=== PATIENT | female | born 1965 | race Caucasian/White ===

== ENCOUNTER 2020-02-24 14:17 | Emergency (ER) | payer OTHER, SELFPAY ==
--- NOTE | ~2020-02-24 | CT_ITS ---
EXAMINATION: CT abdomen pelvis wo con DATE: 02/24/2020 16:46 INDICATION: Right flank pain TECHNIQUE: Computed tomography (CT) of the abdomen and pelvis was performed without intravenous contr ast. The dose-length product (DLP) was 1001.24 mGy-cm. Automated exposure control and iterative recon struction technique were employed. COMPARISON: None FINDINGS: The lung bases are clear. The heart size is normal. There is a 2.9 cm cyst of the right hep atic lobe. The spleen, pancreas, gallbladder, and adrenal glands are normal. The kidneys are unremark able. No stones are identified in the kidneys, ureters, or bladder. There is no hydronephrosis or hyd roureter. No pathologically enlarged abdominal or pelvic lymph nodes are identified. There is no free intraperitoneal gas or evidence of bowel obstruction. A moderate volume of colonic stool is present. There is mild lumbar spondylosis. IMPRESSION: 1. No CT correlate for the patient's symptoms. Reviewed, dictated and finalized at location A.
[2020-02-24 14:32] VITALS: BP 129/80; PULSE 75; RESP 18; TEMP 36.8; O2SAT 99
[2020-02-24 14:55] LABS: Basophils Percent Auto 0.5 % (0.2-1.2); Eosinophils Absolute Auto 0.3 K/mm3 (0-0.3); Eosinophils Percent Auto 4.4 % (0-4.4); Hematocrit 40.3 % (37.0-47.0); Hemoglobin 12.9 g/dL (12.0-15.0); Immature Granulocyte Absolute 0.01 K/mm3 (0.00-0.031); Immature Granulocyte Percent A 0.2 % (0-0.5); Lymphocytes Absolute Auto 1.42 K/mm3 (0.9-3.2); Mean Corpuscular Hemoglobin 29.9 pg (26-34); Mean Corpuscular Volume 93.5 fl (80-100); Mean Platelet Volume 10.2 fl (7.4-10.4); Monocytes Absolute Auto 0.4 K/mm3 (0.1-0.6); Monocytes Percent Auto 6.4 % (2.6-8.5); Neutrophils Absolute Auto 3.8 K/mm3 (1.3-6.7); Neutrophils Percent Auto 64.5 % (45.5-73.1); Platelet Count Result 307 k/mm3 (150-375); Red Blood Count 4.31 M/mm3 (4.2-5.4); Red Cell Distribution Width 13.5 % (11.5-14.5); White Blood Count 5.9 K/mm3 (4.5-10.0)
[2020-02-24 15:07] LABS: Anion Gap 13.2 mmol/L (7-16); Blood Urea Nitrogen 14 mg/dL (7-17); Calcium 9.3 mg/dL (8.4-10.2); Carbon Dioxide 28 mmol/L (22-30); Chloride 101 mmol/L (98-107); Estimated CRCL calculation 81 ml/min; Estimated Glomerular Filt Rate > 60; Glucose 111 mg/dL (65-105); Potassium 4.2 mmol/L (3.4-5.0); Sodium 138 mmol/L (137-145)
[2020-02-24 15:42] LABS: Add Urine Microscopic? NO; Appearance Urine Clear (Clear); Bilirubin Urine Negative (Negative); Blood Urine Negative (Negative); Color Urine Straw (Yellow); Glucose Urine UA Negative (Negative); Ketones Urine Negative (Negative); Leukocyte Esterase Ur Negative LEU/UL (Negative); Nitrate Urine Negative (Negative); Protein Urine Negative (Negative); Specific Grav Ur 1.012 (1.001-1.035); Urobilinogen Urine Negative mg/dL (<2.0)
[2020-02-24] MEDS: ACETAMINOPHEN 500 MG TABLET 1000 MG PO (16:38)
--- NOTE | 2020-02-24 17:15 | ED.ABDPAIN ---
HPI - Abdominal Pain General Chief Complaint: Urogenital-Female <Kai Russell PA-C - Last Filed: 02/24/20 17:20> Stated Complaint: Possible kidney stone <Kai Russell PA-C - Last Filed: 02/24/20 17:20> Time Seen by Provider: 02/24/20 14:56 <Kai Russell PA-C - Last Filed: 02/24/20 17:20> Source: patient <HARJIT Lott Last Filed: 02/24/20 17:20> Mode of arrival: ambulatory <Kai Russell PA-C - Last Filed: 02/24/20 17:20> Limitations: no limitations <Kai Russell PA-C - Last Filed: 02/24/20 17:20> History of Present Illness HPI narrative: Patient is a 54-year-old female who presents to emergency department for evaluation of right flank pain that began today as a sharp pain in the right upper back that does not radiate patient denies fever chills nausea vomiting diarrhea patient on arrival to emergency department is in the room in no distress patient has not taken anything for her symptoms patient is currently being treated by outside care for diverticulitis which was diagnosed a week ago has been compliant with her medications patient presents with family <Kai Russell PA-C - Last Filed: 02/24/20 17:20> Related Data Home Medications: Home Medications Medication Instructions Recorded Confirmed levothyroxine 06/24/19 ciprofloxacin HCl 02/24/20 dicyclomine mg 02/24/20 escitalopram oxalate mg 02/24/20 metronidazole 02/24/20 ondansetron HCl 02/24/20 <Kai Russell PA-C - Last Filed: 02/24/20 17:20> Allergies/Adverse Reactions: Allergies Allergy/AdvReac Type Severity Reaction Status Date / Time No Known Allergies Allergy Verified 02/24/20 14:53 <Kai Russell PA-C - Last Filed: 02/24/20 17:20> Review of Systems Review of Systems: All systems reviewed & are unremarkable except as noted in HPI and below <Kia Russell PA-C - Last Filed: 02/24/20 17:20> PMFSH Past Medical History Medical History: Medical History Obese <Kai Russell PA-C - Last Filed: 02/24/20 17:20> Surgical History Surgical History: Surgical History H/O thyroidectomy <Kai Russell PA-C - Last Filed: 02/24/20 17:20> Social History Social History: Social History Smoking status: Never smoker Gender identity (if verbalized by the patient): Female <Kai Russell PA-C - Last Filed: 02/24/20 17:20> Exam Narrative: Exam Narrative: GENERAL: Well-appearing, well-nourished, and in no acute distress. HEAD: Normocephalic, atraumatic. EYES: PERRLA and EOMI. ENT: Nares clear, no rhinorrhea or epistaxis. Mucous membranes moist. CHEST: Clear to auscultation. No respiratory distress. No wheezes rales or rhonchi HEART: Regular rate and rhythm. No murmur heard. Normal peripheral pulses. ABDOMEN: Soft, nontender, nondistended EXTREMITIES: Normal range of motion. No edema. Tenderness of the right CVA region no deformity noted SKIN: Warm, dry, no rash. NEURO: No focal deficits. Alert and oriented x3. PSYCH: Normal mood and affect. <Kai Russell PA-C - Last Filed: 02/24/20 17:20> Course Course Emergency Course: Patient in the room in no distress aware of case findings treatment plan and diagnosis felt appropriate for continued outpatient reevaluation provided with reasons to return no high risk changes in the blood work or imaging <Kai Russell PA-C - Last Filed: 02/24/20 17:20> Vital Signs Vital signs: Vital Signs Temperature 98.3 F 02/24/20 14:32 Pulse Rate 75 02/24/20 14:32 Respiratory Rate 18 02/24/20 14:32 Blood Pressure 129/80 02/24/20 14:32 Pulse Oximetry 99 02/24/20 14:32 Temperature 98.2 F 02/24/20 17:42 Pulse Rate 74 02/24/20 17:42 Respiratory Rate 16 02/24/20 17:42
[2020-02-24 17:42] VITALS: BP 129/83; PULSE 74; RESP 16; TEMP 36.8; O2SAT 98
== END 2020-02-24 17:44 | disposition home or self-care (01) ==
PROVIDERS: Emergency Provider General Practice; PCP Physician Assistant
DX: R10.9 Unspecified abdominal pain (principal); E66.9 Obesity, unspecified; Z68.42 Body mass index [BMI] 45.0-49.9, adult; E89.0 Postprocedural hypothyroidism
CPT/HCPCS: 36415; 74176; 80048; 81003; 85025; 99284; A9270

== ENCOUNTER 2020-09-07 09:17 | Emergency (ER) | payer OTHER, SELFPAY ==
[2020-09-07 09:25] VITALS: BP 150/90; PULSE 88; RESP 20; TEMP 36.7; O2SAT 98
--- NOTE | 2020-09-07 09:42 | ED.GENADULT ---
HPI - General Adult General Chief complaint: Skin/Abscess/Foreign Body Stated complaint: ingrown hair Source: patient Mode of arrival: ambulatory Limitations: no limitations History of Present Illness HPI narrative: Patient presents for evaluation treatment of painful, swollen, red area to the pubic region for the last 2 days. She denies any fever, chills, nausea, vomiting. She states that her thought that she had an ingrown hair and extracted it. She states there was some sanguinous drainage from the affected area. Current pain level is 10/10, without descriptive quality, worse to touch. She is not diabetic. No fever, chills, nausea, vomiting. No additional complaints or concerns. Related Data Home Medications Medication Instructions Recorded Confirmed escitalopram oxalate 10 mg PO DAILY 09/07/20 09/07/20 levothyroxine 50 mcg PO DAILY 09/07/20 09/07/20 Allergies Allergy/AdvReac Type Severity Reaction Status Date / Time No Known Allergies Allergy Verified 09/07/20 09:39 Review of Systems Review of Systems: Narrative: CONSTITUTIONAL: Denies fever, chills, or sweats. EYES: Denies visual changes, redness, or discharge. ENT: Denies rhinorrhea, congestion, sore throat, or otalgia. CARDIOVASCULAR: Denies chest pain, palpitations, or edema. RESPIRATORY: Denies cough or dyspnea. GASTROINTESTINAL: Denies abdominal pain, nausea, vomiting, or diarrhea. GENITOURINARY: Denies dysuria or hematuria. SKIN: Reports painful, swollen lesion to pubic region. MUSCULOSKELETAL: Denies back pain, joint pain, or myalgia. NEUROLOGIC: Denies headache, numbness, dizziness, or weakness. PSYCHIATRIC: Denies anxiety or depression. [facility] Past Medical History Medical History (Updated 09/07/20 @ 10:15 by CHELSY Saez, [place]) Depression Thyroid disorder Surgical History Surgical History H/O partial thyroidectomy History of dilatation and curettage Family History Family History Mother No pertinent past medical history Father No pertinent past medical history Social History Social History Smoking status: Never smoker Alcohol intake: never Substance use: never Living arrangements: with family Gender identity (if verbalized by the patient): Female Sexual Orientation (if Verbalized by the Patient): Straight or Heterosexual Spiritual care concerns: No Exam Narrative: Exam Narrative: GENERAL: Well-appearing, well-nourished, and in no acute distress. HEAD: Normocephalic, atraumatic. EYES: PERRLA and EOMI. ENT: Nares clear, no rhinorrhea or epistaxis. Mucous membranes moist. Oropharynx without tonsillar hypertrophy exudate or other lesions. Bilateral TMs pearly cage nonbulging NECK: Supple. No adenopathy or masses. No carotid bruits or JVD CHEST: Clear to auscultation. No respiratory distress. No wheezes rales or rhonchi HEART: Regular rate and rhythm. No murmur heard. Normal peripheral pulses. ABDOMEN: Soft, nontender, nondistended, normal active bowel sounds. EXTREMITIES: Normal range of motion. No edema. SKIN: Approximately 5x7 cm area of erythema noted to mons pubis with associated induration. There is an approximately 0.5cm annular area that has some purple pigmentation in central region with questionable small area of associated fluctuance. NEURO: No focal deficits. Alert and oriented x3. PSYCH: Normal mood and affect. Course Course Emergency Course: This is a 55-year-old female who presented with 2-day history of painful swollen lesion to the mons pubis. On exam lesion was primarily indurated but there was a questionable area of central fluctuance. We discussed risk versus benefits of performing incision and drainage. Patient did elect to proceed with procedure. There was some sanguinous drainage noted without any si
--- NOTE | 2020-09-09 11:40 | PC.NURSE ---
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 PT UNABLE TO RETURN TO WORK WITH DRAINING WOUND. WORK NOTE FOR 3 DAYS GIVEN WHICH INCLUDES , AND . Juli MARES NP WROTE PT WORK NOTE AND PT IS HAVING ESTELA VELASQUEZ TO [employer] INSTRUCTOR NOTE. PT IS CALLING HER PMD TODAY FOR FOLLOW UP THIS WEEK. Mica COOK RN.
--- NOTE | 2020-09-09 13:42 | PC.NURSE ---
WORK RELEASE FAXED TO [facility] ATTENTION TO [facility], PER PT REQUEST. Mica COOK RN
== END 2020-09-07 10:22 | disposition home or self-care (01) ==
PROVIDERS: Emergency Provider Nurse Practitioner; PCP Physician Assistant
DX: L02.215 Cutaneous abscess of perineum (principal); F32.9 Major depressive disorder, single episode, unspecified; E07.9 Disorder of thyroid, unspecified
CPT/HCPCS: 56405; 87070; 87147; 87186; 87205; 99213; G0463

== ENCOUNTER 2020-12-23 14:53 | Emergency (ER) | payer OTHER, SELFPAY ==
[2020-12-23 14:55] VITALS: BP 121/70; PULSE 87; RESP 18; TEMP 36.7; O2SAT 98
--- NOTE | 2020-12-23 15:03 | ED.SKABFB ---
HPI - Skin/Abscess/Foreign Bdy General Chief complaint: Skin/Abscess/Foreign Body Stated complaint: knot under right arm Time Seen by Provider: 12/23/20 15:00 Source: patient and RN notes reviewed History of Present Illness HPI narrative: Patient is a 55-year-old female who presents the urgent care with complaints of a knot to the right axilla. Patient states that she noticed it last night and now she notices an area under the left arm as well. Patient states that she has recently had an ingrown hair to the groin which got infected and she was on a few different antibiotics. Patient states that she has not done anything for the abscess under her arm. Denies of any fever, chills, nausea, vomiting. Denies of any use of [id number] medication for pain. No other acute complaints. No acute distress noted. Patient aware of the plan of care. Some parts of this dictation were generated by voice recognition software and may contain typographical and/or grammatical inaccuracies. Related Data Home Medications Medication Instructions Recorded Confirmed escitalopram oxalate 10 mg PO DAILY 09/07/20 09/07/20 levothyroxine 50 mcg PO DAILY 09/07/20 09/07/20 amoxicillin-pot clavulanate tablet 12/23/20 12/23/20 Allergies Allergy/AdvReac Type Severity Reaction Status Date / Time No Known Allergies Allergy Verified 12/23/20 15:05 Review of Systems Review of Systems: Narrative: CONSTITUTIONAL: Denies fever, chills, or sweats. EYES: Denies visual changes, redness, or discharge. ENT: Denies rhinorrhea, congestion, sore throat, or otalgia. CARDIOVASCULAR: Denies chest pain, palpitations, or edema. RESPIRATORY: Denies cough or dyspnea. GASTROINTESTINAL: Denies abdominal pain, nausea, vomiting, or diarrhea. GENITOURINARY: Denies dysuria or hematuria. SKIN: Reports of a knot under the left and right arm MUSCULOSKELETAL: Denies back pain, joint pain, or myalgia. NEUROLOGIC: Denies headache, numbness, or weakness. All other systems reviewed are negative, except as documented in HPI. [facility] Past Medical History Medical History (Updated 12/23/20 @ 15:23 by CHELSY Morales) Depression Thyroid disorder Surgical History Surgical History H/O partial thyroidectomy History of dilatation and curettage Family History Family History Mother No pertinent past medical history Father No pertinent past medical history Social History Social History Smoking status: Never smoker Alcohol intake: never Substance use: never Gender identity (if verbalized by the patient): Female Spiritual care concerns: No Comments At the time of my signature, I reviewed and agree with the nursing past medical, surgical, social, and family history. There is no relevant family history pertinent to the patient complaint. Exam Narrative: Exam Narrative: GENERAL: This is a well-nourished, well-developed patient, in no apparent distress. HEAD: normocephalic, atraumatic. EYES: PERRL. Sclera clear/white. Vision is grossly intact. EARS: External ears normal NOSE: External nose normal with no obvious nasal discharge, nares without redness, no rhinorrhea. THROAT: Mucous membranes moist NECK: Neck supple SKIN: Very mild raised erythemic folliculitis measuring approximately 2.5 cm in firmness to eight 1 cm central region under the right axilla, 0.5 cm firm nonerythemic folliculitis to the left axilla NEURO: awake, alert, and oriented to person, place and time. There were no obvious focal neurologic abnormalities. EXTREMITIES: No clubbing, cyanosis, or edema. Course Vital Signs Vital signs: Vital Signs Temperature 98.1 F 12/23/20 14:55 Pulse Rate 87 12/23/20 14:55 Respiratory Rate 18 12/23/20 14:55 Blood Pressure 121/70 12/23/20 14:55 Pulse Oximetry 98 0
== END 2020-12-23 15:25 | disposition home or self-care (01) ==
PROVIDERS: Emergency Provider Nurse Practitioner Family; PCP Physician Assistant
DX: L73.9 Follicular disorder, unspecified (principal); F32.9 Major depressive disorder, single episode, unspecified
CPT/HCPCS: 99213; G0463

== ENCOUNTER 2021-03-24 08:43 | Emergency (ER) | payer OTHER, SELFPAY ==
[2021-03-24 08:48] VITALS: BP 114/76; PULSE 87; RESP 20; TEMP 36.4; O2SAT 100
--- NOTE | 2021-03-24 09:39 | ED.SKABFB ---
HPI - Skin/Abscess/Foreign Bdy General Chief complaint: Wound/Laceration Stated complaint: Sore on the top of left Arm near the back Time Seen by Provider: 03/24/21 09:40 Source: patient Mode of arrival: ambulatory Limitations: no limitations History of Present Illness HPI narrative: Elizabeth Oates is a 55 yo female with a PMH of hypothyroidism, depression, [facility] a [facility] area of cellulitis on the left upper back that started on Wednesday and is worsened since. She used prid on the area Related Data Home Medications Medication Instructions Recorded Confirmed escitalopram oxalate 10 mg PO DAILY 09/07/20 03/24/21 levothyroxine 50 mcg PO DAILY 09/07/20 03/24/21 Allergies Allergy/AdvReac Type Severity Reaction Status Date / Time No Known Allergies Allergy Verified 03/24/21 09:41 Review of Systems Review of Systems: CONSTITUTIONAL: Denies fever, chills, sweats. EYES: Denies visual changes, redness, discharge. ENT: Denies rhinorrhea, congestion, sore throat, otalgia. CARDIOVASCULAR: Denies chest pain, palpitations, edema. RESPIRATORY: Denies dyspnea, wheezing, cough GASTROINTESTINAL: Denies abdominal pain, nausea, vomiting, diarrhea. GENITOURINARY: Denies dysuria, hematuria, abnormal discharge SKIN: Denies rash or itching. 9 x 4 area of cellulitis that is indurated and tender NEUROLOGIC: Denies numbness, or focal weakness. PSYCHIATRIC: Denies anxiety or depression. [facility] Past Medical History Medical History (Updated 03/24/21 @ 09:59 by Nikki Noriega CNP) Depression Thyroid disorder Surgical History Surgical History H/O partial thyroidectomy History of dilatation and curettage Family History Family History Mother Hypertension Father Hypertension Social History Social History Smoking status: Never smoker Alcohol intake: never Substance use: never Gender identity (if verbalized by the patient): Female Spiritual care concerns: No Comments At time of signature, I agree with nursing past medical, surgical, social and family history. There is no relevant family history pertinent to the presenting complaint. Exam Narrative: GENERAL: This is a well-nourished, well-developed patient, in moderate distress. HEAD: normocephalic, atraumatic. EYES Sclera clear/white. Vision is grossly intact. EARS: External ears normal, Hearing grossly intact. NOSE: External nose normal without nasal discharge, nares without redness, no rhinorrhea. THROAT: Mucous membranes moist, NECK: Neck supple, non-tender CARDIOVASCULAR: Regular rate and rhythm without murmurs, gallops, or rubs. RESPIRATORY: Clear to auscultation. Breath sounds equal bilaterally. No wheezes, rales, or rhonchi. GASTROINTESTINAL: Abdomen soft, SKIN: warm, intact with no bite for reddened area on the left upper back which is tender and indurated, in the last 2 days NEURO: awake, alert, and oriented to person, place and time. There were no obvious focal neurologic abnormalities. Steady gait EXTREMITIES: Normal range of motion. BACK: Nontender without deformity Course Course Emergency Course: Patient here with area of cellulitis is indurated and tender on the left upper back I&D with the 18-gauge needle copious amounts of discharge Started on Bactrim and Keflex Given directions on cleaning and to not use antibiotic ointment to the area Vital Signs Vital signs: Vital Signs Temperature 97.5 F L 03/24/21 08:48 Pulse Rate 87 03/24/21 08:48 Respiratory Rate 20 03/24/21 08:48 Blood Pressure 114/76 03/24/21 08:48 Pulse Oximetry 100 03/24/21 08:48 Temperature 97.5 F L 03/24/21 08:48 Pulse Rate 87 03/24/21 08:48 Respiratory Rate 20 03/24/21 08:48 Blood Pressure 114/76 03/24/21 08:48 Pulse Oximetry 100 03/24/21 08:48 Pro
== END 2021-03-24 10:15 | disposition home or self-care (01) ==
PROVIDERS: Emergency Provider Nurse Practitioner; PCP Physician Assistant
DX: L02.212 Cutaneous abscess of back [any part, except buttock and flank] (principal); F32.9 Major depressive disorder, single episode, unspecified; E03.9 Hypothyroidism, unspecified
CPT/HCPCS: 10160; 99213; G0463

== ENCOUNTER 2021-12-06 14:36 | Emergency (ER) | payer BC, SELFPAY ==
[2021-12-06 14:41] VITALS: BP 115/84; PULSE 93; RESP 16; TEMP 36.8; O2SAT 100
--- NOTE | 2021-12-06 15:28 | ED.GENADULT ---
HPI - General Adult General Chief complaint: Eye Problems Stated complaint: left eye Source: patient Mode of arrival: ambulatory Limitations: no limitations History of Present Illness HPI narrative: Patient presents for evaluation of swelling and pain to the left lower eyelid for the past two days. She states she has some blurred vision in left eye. She wears glasses but not contacts. She is not diabetic. No drainage from eye. No fever, chills, nausea, vomiting. No additional complaints or concerns. Related Data Home Medications Medication Instructions Recorded Confirmed escitalopram oxalate mg 02/24/20 levothyroxine 50 mcg PO DAILY 09/07/20 12/06/21 Allergies Allergy/AdvReac Type Severity Reaction Status Date / Time No Known Allergies Allergy Verified 12/06/21 15:02 Review of Systems Review of Systems: CONSTITUTIONAL: Denies fever, chills, or sweats. EYES: Reports mild blurred vision in left eye. Reports swelling and redness to left lower eyelid. Denies drainage ENT: Denies rhinorrhea, congestion, sore throat, or otalgia. CARDIOVASCULAR: Denies chest pain, palpitations, or edema. RESPIRATORY: Denies cough or dyspnea. GASTROINTESTINAL: Denies abdominal pain, nausea, vomiting, or diarrhea. GENITOURINARY: Denies dysuria or hematuria. SKIN: Denies rash or itching. MUSCULOSKELETAL: Denies back pain, joint pain, or myalgia. NEUROLOGIC: Denies headache, numbness, dizziness, or weakness. PSYCHIATRIC: Denies anxiety or depression. [facility] Past Medical History Medical History Depression Obese Thyroid disorder Surgical History Surgical History H/O partial thyroidectomy H/O thyroidectomy History of dilatation and curettage Family History Family History Mother Hypertension Father Hypertension Social History Social History Smoking status: Never smoker Alcohol intake: never Substance use: never Gender identity (if verbalized by the patient): Female Sexual Orientation (if Verbalized by the Patient): Straight or Heterosexual Spiritual care concerns: No Exam Narrative: GENERAL: Well-appearing, well-nourished, and in no acute distress. HEAD: Normocephalic, atraumatic. EYES: PERRLA and EOMI. There is mild erythema and swelling to left upper and lower eyelids ENT: Nares clear, no rhinorrhea or epistaxis. Mucous membranes moist. Oropharynx without tonsillar hypertrophy exudate or other lesions. Bilateral TMs pearly cage nonbulging NECK: Supple. No adenopathy or masses. No carotid bruits or JVD CHEST: Clear to auscultation. No respiratory distress. No wheezes rales or rhonchi HEART: Regular rate and rhythm. No murmur heard. Normal peripheral pulses. ABDOMEN: Soft, nontender, nondistended, normal active bowel sounds. EXTREMITIES: Normal range of motion. No edema. SKIN: Warm, dry, no rash. NEURO: No focal deficits. Alert and oriented x3. PSYCH: Normal mood and affect. Course Course Emergency Course: This is a 56-year-old female who presented with complaints of swelling and redness to left lower eyelid x 2 days. It appears this may be a hordeolum at the junction of upper and lower lids. Will tx with ophthalmic antibiotic. Will also give script for oral abx as this could be a very early periorbital cellulitis. She should follow up outpatient for further evaluation and treatment and return for worsening symptoms. Pt in agreement with plan of care. Level of Care: Express Care Visit Vital Signs Vital signs: Vital Signs Temperature 36.8 C 12/06/21 14:41 Pulse Rate 93 12/06/21 14:41 Respiratory Rate 16 12/06/21 14:41 Blood Pressure 115/84 12/06/21 14:41 Pulse Oximetry 100 12/06/21 14:41 Temperature 36.8 C 12/06/21 14:41 Pulse Rate 93
== END 2021-12-06 15:30 | disposition home or self-care (01) ==
PROVIDERS: Emergency Provider Nurse Practitioner; PCP Physician Assistant
DX: H00.015 Hordeolum externum left lower eyelid (principal)
CPT/HCPCS: 99213; G0463

== ENCOUNTER 2022-08-27 14:44 | Emergency (ER) | payer BC, SELFPAY ==
[2022-08-27 14:44] VITALS: BP 120/74; PULSE 84; RESP 16; TEMP 37.1; O2SAT 98
--- NOTE | 2022-08-27 15:31 | ED.URI ---
HPI - URI/Sore Throat General Chief Complaint: Upper Respiratory Infection Stated Complaint: Sore Throat Time Seen by Provider: 08/27/22 15:25 Source: patient, RN notes reviewed and old records reviewed Mode of arrival: ambulatory Limitations: no limitations History of Present Illness HPI Narrative: 57 year old female who presents to [facility] care with complaints of runny nose and sore throat which started this morning, reports no fevers, chills or sweats, denies any body aches. Patient has had COVID vaccinations and also flu shot. Patient reports that she has not taken any OTC medications for her discomfort, reports no known ill contacts. MD elicited complaint: sore throat, rhinorrhea and nasal congestion Pertinent past history: other (bronchitis) Onset (ago): day(s) (this morning) Pain scale (0-10): 5 Able to tolerate fluids by mouth: Yes Treatments prior to arrival: none Related Data Home Medications Medication Instructions Recorded Confirmed escitalopram oxalate 10 mg tablet 10 mg PO DAILY 02/24/20 08/27/22 levothyroxine 50 mcg tablet 50 mcg PO DAILY 09/07/20 08/27/22 buspirone 10 mg tablet 10 mg PO BID 08/27/22 08/27/22 Allergies Allergy/AdvReac Type Severity Reaction Status Date / Time No Known Allergies Allergy Verified 08/27/22 14:50 Review of Systems Review of Systems: CONSTITUTIONAL: Denies malaise, chills, sweats, or fever. EYES: Denies visual changes, redness, or discharge. ENT: Reports rhinorrhea, congestion, no sinus pain, no otalgia positive for sore throat. CARDIOVASCULAR: Denies chest pain, palpitations, or edema. RESPIRATORY: Reports cough.? Denies dyspnea. GASTROINTESTINAL: Denies abdominal pain, nausea, vomiting, diarrhea SKIN: Denies rash or itching. MUSCULOSKELETAL: Denies myalgia. NEUROLOGIC: Denies headache. All systems reviewed & are unremarkable except as noted in HPI and below PMFSH Past Medical History Medical History Depression Obese Thyroid disorder Surgical History Surgical History H/O partial thyroidectomy H/O thyroidectomy History of dilatation and curettage Family History Family History Mother Hypertension Father Hypertension Social History Social History Smoking status: Never smoker Alcohol intake: never Substance use: never Living arrangements: with family Gender identity (if verbalized by the patient): Female Sexual Orientation (if Verbalized by the Patient): Straight or Heterosexual Spiritual care concerns: No Comments At time of signature, agree with nursing past medical, surgical, social and family history. There is no relevant family history pertinent to the presenting complaint Exam Narrative: GENERAL: Well-appearing, well-nourished, and in no acute distress. HEAD: Normocephalic EYES: PERRLA, conjunctivae clear ENT: Nares clear, turbinates edematous and erythematous, clear discharge. Mucous membranes moist. TM pearly cage with dull light reflex bilaterally; no tragal tenderness. Oropharynx erythematous without lesions. Tonsils red not enlarged and without exudate, no drooling, no hoarseness, no trismus, uvula midline.post nasal drainage. NECK: Supple. No lymphadenopathy CHEST: Clear to auscultation, breath sounds equal. No wheezing, rhonchi, rales, or stridor. No respiratory distress, speaks in full sentences.no cough noted SAO2 98% on room air HEART: Regular rate and rhythm. No murmur heard. SKIN: Warm, dry, no rash. NEURO: Alert and oriented x3. PSYCH: Normal mood and affect Course Course Emergency Course: Patient is aware of diagnosis, understands and agrees to treatment plan.? Anticipatory guidance given.? Patient agrees to follow-up as directed and is aware of reasons to seek care at
== END 2022-08-27 15:50 | disposition home or self-care (01) ==
PROVIDERS: Emergency Provider Registered Nurse; PCP Physician Assistant
DX: J06.9 Acute upper respiratory infection, unspecified (principal); J02.9 Acute pharyngitis, unspecified; F32.A Depression, unspecified; E66.9 Obesity, unspecified; Z68.41 Body mass index [BMI] 40.0-44.9, adult; E03.9 Hypothyroidism, unspecified; Z90.89 Acquired absence of other organs
CPT/HCPCS: 87081; 87880; 99213; G0463

== ENCOUNTER 2022-10-23 18:54 | Emergency (ER) | payer BC, SELFPAY ==
[2022-10-23 19:05] VITALS: BP 124/77; PULSE 91; RESP 14; TEMP 36.6; O2SAT 98
[2022-10-23 19:09] VITALS: BP 124/77; PULSE 91; RESP 14; TEMP 36.6; O2SAT 98
--- NOTE | 2022-10-23 19:15 | ED.URI ---
HPI - URI/Sore Throat General Chief Complaint: Upper Respiratory Infection Stated Complaint: Sore Throat Time Seen by Provider: 10/23/22 19:15 Source: patient, family, RN notes reviewed and old records reviewed Mode of arrival: ambulatory Limitations: no limitations History of Present Illness HPI Narrative: 57-year-old female who presents to [facility] with complaints of dry cough since yesterday denies any sore throat but has lost her voice this morning. Patient denies any known fevers,chills or sweats or any body aches has been COVID vaccinated and also has had flu shot. Patient also reports redness left upper eyelid with some swelling since yesterday and was seen by her eye doctor who told her to take Benadryl and apply warm compresses. MD elicited complaint: cough and other (loss of voice, left eyelid red and swollen) Onset (ago): day(s) (yesterday) Treatments prior to arrival: other (Benadryl) Related Data Home Medications Medication Instructions Recorded Confirmed escitalopram oxalate 10 mg tablet 10 mg PO DAILY 02/24/20 10/23/22 levothyroxine 50 mcg tablet 50 mcg PO DAILY 09/07/20 10/23/22 buspirone 10 mg tablet 10 mg PO BID 08/27/22 10/23/22 Allergies Allergy/AdvReac Type Severity Reaction Status Date / Time No Known Allergies Allergy Verified 10/23/22 19:08 Review of Systems Review of Systems: CONSTITUTIONAL: Denies malaise, chills, sweats, or fever. EYES: Denies visual changes, redness, or discharge.positive for swelling and redness to right upper eyelid ENT: Denies rhinorrhea, congestion, sinus pain, otalgia or sore throat, reports loss of voice CARDIOVASCULAR: Denies chest pain, palpitations, or edema. RESPIRATORY: Reports dry cough.? Denies dyspnea. GASTROINTESTINAL: Denies abdominal pain, nausea, vomiting, diarrhea SKIN: Denies rash or itching. MUSCULOSKELETAL: Denies myalgia. NEUROLOGIC: Denies headache. All systems reviewed & are unremarkable except as noted in HPI and below PMFSH Past Medical History Medical History Depression Obese Thyroid disorder Surgical History Surgical History H/O partial thyroidectomy H/O thyroidectomy History of dilatation and curettage Family History Family History Mother Hypertension Father Hypertension Social History Social History Smoking status: Never smoker Alcohol intake: never Substance use: never Living arrangements: with family Gender identity (if verbalized by the patient): Female Sexual Orientation (if Verbalized by the Patient): Straight or Heterosexual Spiritual care concerns: No Comments At time of signature, agree with nursing past medical, surgical, social and family history. There is no relevant family history pertinent to the presenting complaint Exam Narrative: GENERAL: Well-appearing, well-nourished, and in no acute distress. HEAD: Normocephalic EYES: PERRLA, conjunctivae clear swelling and redness of left upper eyelid no drainage noted ENT: Nares clear, turbinates edematous and erythematous, clear discharge. Mucous membranes moist. TM pearly cage with dull light reflex bilaterally; no tragal tenderness. Oropharynx erythematous without lesions. Tonsils not enlarged and without exudate, no drooling, positive for hoarseness, no trismus, uvula midline. NECK: Supple. No lymphadenopathy CHEST: Decreased to auscultation, breath sounds equal. No wheezing, rhonchi, rales, or stridor. No respiratory distress, speaks in full sentences.dry cough, SAO2 98% on room air HEART: Regular rate and rhythm. No murmur heard. SKIN: Warm, dry, no rash. NEURO: Alert and oriented x3. PSYCH: Normal mood and affect Course Course Emergency Course: Patient is aware of diagnosis, understands and agree
== END 2022-10-23 19:33 | disposition home or self-care (01) ==
PROVIDERS: Emergency Provider Registered Nurse; PCP Physician Assistant
DX: J06.9 Acute upper respiratory infection, unspecified (principal)
CPT/HCPCS: 87081; 87880; 99213; G0463

== ENCOUNTER 2023-03-28 11:38 | Emergency (ER) | payer BC, SELFPAY ==
[2023-03-28 11:54] VITALS: BP 113/65; PULSE 92; RESP 20; TEMP 36.8; O2SAT 99
--- NOTE | 2023-03-28 12:45 | ED.GENADULT ---
HPI - General Adult General Chief complaint: Upper Respiratory Infection Stated complaint: test for covid Source: patient Mode of arrival: ambulatory Limitations: no limitations History of Present Illness HPI narrative: Patient presents for evaluation of sick symptoms since yesterday. Symptoms include chills, cough, diarrhea and sore throat. Denies any fever, nausea, vomiting, shortness of breath, alterations in sense of taste/smell. 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 She is not taking any medication for her symptoms. She does not smoke. Related Data Home Medications Medication Instructions Recorded Confirmed escitalopram oxalate 10 mg tablet 10 mg PO DAILY 02/24/20 03/28/23 levothyroxine 50 mcg tablet 50 mcg PO DAILY 09/07/20 03/28/23 buspirone 10 mg tablet 10 mg PO BID 08/27/22 03/28/23 Allergies Allergy/AdvReac Type Severity Reaction Status Date / Time No Known Allergies Allergy Verified 10/23/22 19:08 Review of Systems Review of Systems: CONSTITUTIONAL: Reports chills. Denies fever or sweats. EYES: Denies visual changes, redness, or discharge. ENT: Reports sore throat. Denies rhinorrhea, congestion, or otalgia. CARDIOVASCULAR: Denies chest pain, palpitations, or edema. RESPIRATORY: Reports cough. Denies shortness of breath. GASTROINTESTINAL: Reports diarrhea. Denies abdominal pain, nausea or vomiting GENITOURINARY: Denies dysuria or hematuria. SKIN: Denies rash or itching. MUSCULOSKELETAL: Denies back pain, joint pain, or myalgia. NEUROLOGIC: Denies headache, numbness, dizziness, or weakness. PSYCHIATRIC: Denies anxiety or depression. [facility] Past Medical History Medical History Depression Obese Thyroid disorder Surgical History Surgical History H/O partial thyroidectomy H/O thyroidectomy History of dilatation and curettage Family History Family History Mother Hypertension Father Hypertension Social History Social History Smoking status: Never smoker Alcohol intake: never Substance use: never Living arrangements: with family Gender identity (if verbalized by the patient): Female Sexual Orientation (if Verbalized by the Patient): Straight or Heterosexual Spiritual care concerns: No Exam Narrative: GENERAL: Well-appearing, well-nourished, and in no acute distress. HEAD: Normocephalic, atraumatic. EYES: PERRLA and EOMI. ENT: Nares clear, no rhinorrhea or epistaxis. Mucous membranes moist. Oropharynx without tonsillar hypertrophy exudate or other lesions. Bilateral TMs pearly cage nonbulging NECK: Supple. No adenopathy or masses. No carotid bruits or JVD CHEST: Clear to auscultation. No respiratory distress. No wheezes rales or rhonchi HEART: Regular rate and rhythm. No murmur heard. Normal peripheral pulses. ABDOMEN: Soft, nontender, nondistended, normal active bowel sounds. EXTREMITIES: Normal range of motion. No edema. SKIN: Warm, dry, no rash. NEURO: No focal deficits. Alert and oriented x3. PSYCH: Normal mood and affect. Course Course Emergency Course: This is a 57-year-old female who presented for evaluation of sick symptoms. Influenza and strep were negative. COVID positive. Increase hydration. Follow quarantine in alignment with CDC recommendations. [id number] agents for symptom management. Follow up with primary provider. Go to the emergency department for worsening symptoms. Patient in agreement with plan of care. Level of Care: Express Care Visit Vital Signs Vital signs: Vital Signs Temperature 36.8 C 03/28/23 11:54 Pulse Rate 92 03/28/23 11:54 Respiratory Rate 20 03/28/23 11:54 Blood Pressure 113/65 03/28/23 11:54 Pulse Oximetry 99 03/28/23 11:54
== END 2023-03-28 13:00 | disposition home or self-care (01) ==
PROVIDERS: Emergency Provider Nurse Practitioner; PCP Physician Assistant
DX: U07.1 COVID-19 (principal); F32.A Depression, unspecified; E89.0 Postprocedural hypothyroidism
CPT/HCPCS: 87081; 87426; 87804; 87880; 99213; C9803; G0463

== ENCOUNTER 2023-07-05 08:37 | Emergency (ER) | payer BC, SELFPAY ==
--- NOTE | ~2023-07-05 | XR_ITS ---
AP and lateral views of the right femur Clinical History: Pain Findings: No acute fracture or dislocation is seen. Osseous alignment is anatomic. Visualized joint s paces are grossly preserved. Soft tissues are unremarkable. Impression: Unremarkable right femoral radiographs. Reviewed, dictated and finalized at location M. ENING MACHINE OPERATOR Impression: Unremarkable right femoral radiographs.
--- NOTE | ~2023-07-05 | CT_ITS ---
EXAMINATION: CT femur RT w con DATE: 07/05/2023 16:42 INDICATION: Right thigh pain and swelling. TECHNIQUE: Computed tomography (CT) of the right femur was performed with 100 mL Omnipaque 350 intrav enous contrast. Automated exposure control and iterative reconstruction technique were employed. The dose-length product was 1052.95 mGy-cm. COMPARISON: Right femur radiographs 07/05/2023 FINDINGS: Bone alignment is normal. No fracture. There is mild right hip osteoarthritis. There is mil d right knee osteoarthritis. No knee joint effusion. IMPRESSION: 1. Mild polyarticular osteoarthritis. Reviewed, dictated and finalized at location E. RETTE MACHINE OPERATOR
[2023-07-05 08:43] VITALS: BP 154/91; PULSE 78; RESP 20; TEMP 36.7; O2SAT 100
--- NOTE | 2023-07-05 11:55 | ED.EXTPRO ---
HPI - Extremity Problem General Chief complaint: Extremity Problem,Nontraumatic <Kat Epstein PA-C - Last Filed: 07/05/23 12:29> Stated complaint: Left leg pain <Kat Epstein PA-C - Last Filed: 07/05/23 12:29> Time Seen by Provider: 07/05/23 11:22 <Kat Epstein PA-C - Last Filed: 07/05/23 12:29> Source: patient <Guerline Oviedo MD - Last Filed: 07/08/23 13:04> Limitations: no limitations <Guerline Oviedo MD - Last Filed: 07/08/23 13:04> History of Present Illness HPI Narrative: 57-year-old female reports for evaluation for left leg pain x3 days. Patient reports the pain is in the anterior and lateral aspect of her right thigh. She states it is worse with walking and when laying down. She went to [facility] and had a negative x-ray and was sent home with Adelaide and Uli. She reports today for persistent pain. She reports associated swelling over her thigh. Denies calf pain, history of DVT, hip pain, recent injury or trauma, fever, rash. She does have a PCP. <Kat Epstein PA-C - Last Filed: 07/05/23 12:29> Related Data Home medications: Home Medications Medication Instructions Recorded Confirmed escitalopram oxalate 10 mg tablet 10 mg PO DAILY 02/24/20 03/28/23 levothyroxine 50 mcg tablet 50 mcg PO DAILY 09/07/20 03/28/23 buspirone 10 mg tablet 10 mg PO BID 08/27/22 03/28/23 cyclobenzaprine 10 mg tablet mg 07/05/23 hydrocodone 5 mg-acetaminophen 325 tablet 07/05/23 mg tablet indomethacin 50 mg capsule mg 07/05/23 07/05/23 <Kat Epstein PA-C - Last Filed: 07/05/23 12:29> Allergies/Adverse reactions: Allergies Allergy/AdvReac Type Severity Reaction Status Date / Time No Known Allergies Allergy Verified 07/05/23 11:14 <Kat Epstein PA-C - Last Filed: 07/05/23 12:29> Review of Systems Review of Systems: CONSTITUTIONAL: Denies fever, chills, or sweats. EYES: Denies visual changes, redness, or discharge. ENT: Denies rhinorrhea, congestion, sore throat, or otalgia. CARDIOVASCULAR: Denies chest pain, palpitations, or edema. RESPIRATORY: Denies cough or dyspnea. GASTROINTESTINAL: Denies abdominal pain, nausea, vomiting, or diarrhea. GENITOURINARY: Denies dysuria or hematuria. SKIN: Denies rash or itching. MUSCULOSKELETAL: See HPI NEUROLOGIC: Denies headache, numbness, or weakness. PSYCHIATRIC: Denies anxiety or depression. <Kat Epstein PA-C - Last Filed: 07/05/23 12:29> PMFSH Past Medical History Medical History: Medical History Depression Obese Thyroid disorder <Kat Epstein PA-C - Last Filed: 07/05/23 12:29> Surgical History Surgical History: Surgical History H/O partial thyroidectomy H/O thyroidectomy History of dilatation and curettage <Kat Epstein PA-C - Last Filed: 07/05/23 12:29> Family History Family History: Family History Mother Hypertension Father Hypertension <Kat Epstein PA-C - Last Filed: 07/05/23 12:29> Social History Social History: Social History Smoking status: Never smoker Alcohol intake: never Substance use: never Living arrangements: with family Gender identity (if verbalized by the patient): Female Sexual Orientation (if Verbalized by the Patient): Straight or Heterosexual Spiritual care concerns: No <Kat Epstein PA-C - Last Filed: 07/05/23 12:29> Exam Narrative: GENERAL: Well-appearing, well-nourished, and in no acute distress. HEAD: Normocephalic, atraumatic. NECK: Supple. CHEST: Clear to auscultation. No respiratory distress. HEART: Regular rate and rhythm. No murmur heard. Normal peripheral pulses. ABDOMEN: Soft, nontender, nondistended, normal active bow
[2023-07-05] MEDS: IBUPROFEN 400 MG TABLET 800 MG PO (12:32)
[2023-07-05] MEDS: LIDOCAINE 5% PATCH 1 PATCH TRANSDERM (12:33)
[2023-07-05] MEDS: CYCLOBENZAPRINE HCL 10 MG TABLET PO (12:33)
[2023-07-05 13:10] LABS: Basophils Percent Auto 0.4 % (0.2-1.2); Eosinophils Absolute Auto 0.2 K/mm3 (0-0.3); Hemoglobin 12.2 g/dL (12.0-15.0); Immature Granulocyte Absolute 0.02 K/mm3 (0.00-0.031); Immature Granulocyte Percent A 0.3 % (0-0.5); Lymphocytes Absolute Auto 1.41 K/mm3 (0.9-3.2); Lymphocytes Percent Auto 17.9 % (18.3-44.2); Mean Corpuscular HGB Conc 32.1 g/dl (32-36); Mean Corpuscular Hemoglobin 30.7 pg (26-34); Mean Corpuscular Volume 95.7 fl (80-100); Mean Platelet Volume 9.8 fl (7.4-10.4); Monocytes Absolute Auto 0.4 K/mm3 (0.1-0.6); Monocytes Percent Auto 5.4 % (2.6-8.5); Neutrophils Absolute Auto 5.8 K/mm3 (1.3-6.7); Platelet Count Result 272 k/mm3 (150-375); Red Blood Count 3.97 M/mm3 (4.2-5.4); Red Cell Distribution Width 13.1 % (11.5-14.5); White Blood Count 7.9 K/mm3 (4.5-10.0)
[2023-07-05 13:38] LABS: D Dimer 0.38 ug/mL (<0.48)
[2023-07-05 14:14] LABS: Anion Gap 10 mmol/L (8-16); Blood Urea Nitrogen 15 mg/dL (7-17); Calcium 9.1 mg/dL (8.4-10.2); Carbon Dioxide 27 mmol/L (22-30); Chloride 102 mmol/L (98-107); Creatine Kinase 27 U/L (30-135); Estimated CRCL calculation 99 ml/min; Estimated Glomerular Filt Rate > 60; Glucose 112 mg/dL (65-110); Potassium 3.6 mmol/L (3.4-5.0); Sodium 139 mmol/L (137-145)
[2023-07-05] MEDS: HYDROcodone/acetaminophen (*CRX) 5-325 MG TABLET 1 TAB PO (16:12)
[2023-07-05] MEDS: CYCLOBENZAPRINE HCL 10 MG TABLET 5 MG PO (16:12)
[2023-07-05 16:20] VITALS: BP 140/91; PULSE 65; RESP 16; O2SAT 100
[2023-07-05 18:32] VITALS: BP 142/90; PULSE 66; RESP 16; O2SAT 100
== END 2023-07-05 18:33 | disposition home or self-care (01) ==
PROVIDERS: Physician Assistant; Emergency Provider Student in an Organized Health Care Education/Training Program; PCP Physician Assistant
DX: M79.651 Pain in right thigh (principal); E07.9 Disorder of thyroid, unspecified; E66.9 Obesity, unspecified; Z68.41 Body mass index [BMI] 40.0-44.9, adult; F32.A Depression, unspecified; M16.11 Unilateral primary osteoarthritis, right hip
CPT/HCPCS: 36415; 73552; 73701; 80048; 82550; 85025; 85380; 99284; A9270

== ENCOUNTER 2023-07-11 11:33 | Emergency (ER) | payer BC, SELFPAY ==
[2023-07-11 11:38] VITALS: BP 130/69; PULSE 93; RESP 24; TEMP 36.3; O2SAT 97
--- NOTE | 2023-07-11 11:49 | ED.URI ---
HPI - URI/Sore Throat General Chief Complaint: Upper Respiratory Infection Stated Complaint: Cough/Runny Nose/Sore Throat History of Present Illness HPI Narrative: Patient presents with cough. Cough is nonproductive and worse at night when she lays down. Patient has taken Tessalon Perles for cough with minimal relief. No shortness of breath no chest pain. No fever no body aches Related Data Home Medications Medication Instructions Recorded Confirmed escitalopram oxalate 10 mg tablet 10 mg PO DAILY 02/24/20 03/28/23 levothyroxine 50 mcg tablet 50 mcg PO DAILY 09/07/20 03/28/23 buspirone 10 mg tablet 10 mg PO BID 08/27/22 03/28/23 hydrocodone 5 mg-acetaminophen 325 tablet 07/05/23 mg tablet indomethacin 50 mg capsule mg 07/05/23 07/05/23 gabapentin 100 mg capsule mg 07/11/23 Allergies Allergy/AdvReac Type Severity Reaction Status Date / Time No Known Allergies Allergy Verified 07/11/23 11:34 Review of Systems Review of Systems: CONSTITUTIONAL: Denies chills, or sweats. Reports fever and generalized body aches EYES: Denies visual changes, redness, or discharge. ENT: Denies otalgia. Reports nasal congestion runny nose and sore throat CARDIOVASCULAR: Denies chest pain, palpitations, or edema. RESPIRATORY: Denies dyspnea. Reports occasional cough GASTROINTESTINAL: Denies abdominal pain, nausea, vomiting, or diarrhea. GENITOURINARY: Denies dysuria or hematuria. SKIN: Denies rash or itching. MUSCULOSKELETAL: Denies back pain, joint pain, or myalgia. Reports generalized body aches NEUROLOGIC: Denies headache, numbness, or weakness. PSYCHIATRIC: Denies anxiety or depression. [facility] Past Medical History Medical History Depression Obese Thyroid disorder Surgical History Surgical History H/O partial thyroidectomy H/O thyroidectomy History of dilatation and curettage Family History Family History Mother Hypertension Father Hypertension Social History Social History Smoking status: Never smoker Alcohol intake: never Substance use: never Living arrangements: with family Gender identity (if verbalized by the patient): Female Sexual Orientation (if Verbalized by the Patient): Straight or Heterosexual Spiritual care concerns: No Comments The patient is a well-developed, well-nourished in no acute distress. SKIN: Skin is warm and dry without erythema, swelling or exudate. There is good turgor. No tenting. HEAD: Atraumatic. Normocephalic. No temporal or scalp tenderness. EYES: Moist and bright. Sclera and conjunctivae normal. No discharge. PERRLA. Extraocular motions intact. Gross visual acuity intact. EARS: Pinna is normal shape and contour. Clear external auditory canals. TM pearly barnard with good cone of light, no erythema or suppuration. Bilateral cerumen noted no gross hearing deficit. NOSE: pink, moist mucosa with good air movement. Clear rhinorrhea without nasal flaring. Septum midline. Mouth: moist mucous membranes. THROAT; mild erythema noted to posterior oropharynx with moderate postnasal drainage. Without exudate or ulceration.. Uvula midline. Normal movement of soft palate. NECK: Supple and nontender with full range of motion without discomfort. No meningeal signs. LUNGS: Equal and bilateral breath sounds without wheezes, rales or rhonchi. CHEST: The chest wall is without retractions or use of accessory muscles. HEART: Has a regular rate and rhythm without murmur, gallops, click or rub. ABDOMEN: Soft, nontender with positive active bowel sounds. No rebound tenderness. EXTREMITIES: Without cyanosis, clubbing or edema. Equal 2+ distal pulses and 2 second capillary refill noted. NEUROLOGIC: alert, active, . The patient moves all extremities with normal muscle str
== END 2023-07-11 11:58 | disposition home or self-care (01) ==
PROVIDERS: Emergency Provider Nurse Practitioner Family; PCP Physician Assistant
DX: R09.82 Postnasal drip (principal); F32.A Depression, unspecified; E66.9 Obesity, unspecified; Z68.41 Body mass index [BMI] 40.0-44.9, adult; E89.0 Postprocedural hypothyroidism
CPT/HCPCS: 99213; G0463

== ENCOUNTER 2023-11-04 12:08 | Emergency (ER) | payer BC, SELFPAY ==
[2023-11-04 12:20] VITALS: BP 135/80; PULSE 91; RESP 18; TEMP 36.4; O2SAT 100
--- NOTE | 2023-11-04 12:53 | ED.GENADULT ---
HPI - General Adult General Chief complaint: Unspecified Stated complaint: Fall Injury/Chest Pain Time Seen by Provider: 11/04/23 12:32 Source: patient, RN notes reviewed and old records reviewed Mode of arrival: ambulatory Limitations: no limitations History of Present Illness HPI narrative: 50-year-old female to [facility] Care with complaint of chest discomfort worse with deep inspiration x1 week. Patient states 1 week ago she tripped on uneven concrete and fell forward onto her chest. Patient states that it knocked the wind out of her. Patient denies SOB or chest pain. Pt has treated at home with tylenol. Related Data Home Medications Medication Instructions Recorded Confirmed escitalopram oxalate 10 mg tablet 10 mg PO DAILY 02/24/20 03/28/23 levothyroxine 50 mcg tablet 50 mcg PO DAILY 09/07/20 03/28/23 buspirone 10 mg tablet 10 mg PO BID 08/27/22 03/28/23 Allergies Allergy/AdvReac Type Severity Reaction Status Date / Time No Known Allergies Allergy Verified 11/04/23 12:43 Review of Systems Review of Systems: All systems reviewed & are unremarkable except as noted in HPI and below Constitutional: Constitutional: Reports no additional constitutional complaints Eyes: Eyes: Reports no additional eye complaints ENT: Reports system reviewed and no additional complaints, except as documented Cardiovascular: Cardiovascular: Reports no additional cardiovascular complaints, Denies chest pain and Denies dyspnea Respiratory: Respiratory: Reports no additional respiratory complaints, Denies cough and Denies dyspnea Musculoskeletal: Musculoskeletal: Reports other (chest discomfort) Integumentary/Breasts: Skin/Breast: Reports breast pain (bilateral, s/p fall) Neurologic: Reports system reviewed and no additional complaints, except as documented Psychiatric: Psychiatric: Reports no additional psychiatric complaints [facility] Past Medical History Medical History Depression Obese Thyroid disorder Surgical History Surgical History H/O partial thyroidectomy H/O thyroidectomy History of dilatation and curettage Family History Family History Mother Hypertension Father Hypertension Social History Social History Smoking status: Never smoker Alcohol intake: never Substance use: never Living arrangements: with family Gender identity (if verbalized by the patient): Female Sexual Orientation (if Verbalized by the Patient): Straight or Heterosexual Spiritual care concerns: No Comments At the time of my signature, I reviewed and agree with the nursing past medical, surgical, social, and family history. There is no relevant family history pertinent to the patient complaint. Exam Const: General: cooperative, healthy appearing, comfortable, no acute distress, alert and well nourished Nutritional Appearance: well nourished Orientation/consciousness: patient oriented x3 Limitations: no limitations HENMT: Head: normal to inspection Ears: external ears normal Face/Nose/Sinus: Normal external nose present, Normal nares present, normal facial exam, No erythema and No edema Face and sinus: normal facial exam, no erythema and no edema Mouth: Yes Normal oral and palatal mucosa present Eyes: General: appearance normal, both eyes and all related structures Neck: Neck: normal visual inspection, full ROM and no meningeal signs Lymphatic: no lymphadenopathy noted and no lymphedema noted Chest: Chest palpation & inspection: normal inspection of the chest, normal palpation of entire chest wall and no tenderness Breast/axilla palpation: abnormal palpation of the breast (bilateral) Resp: Effort & Inspection: normal respiratory effort and able to speak in complete sentences A
== END 2023-11-04 13:16 | disposition home or self-care (01) ==
PROVIDERS: Emergency Provider Nurse Practitioner Family; PCP Physician Assistant
DX: S20.02XA Contusion of left breast, initial encounter (principal); S20.01XA Contusion of right breast, initial encounter; W18.09XA Striking against other object with subsequent fall, initial encounter; F32.A Depression, unspecified; E66.9 Obesity, unspecified; Z68.42 Body mass index [BMI] 45.0-49.9, adult; E07.9 Disorder of thyroid, unspecified; Z90.89 Acquired absence of other organs
CPT/HCPCS: 99212; G0463

== ENCOUNTER 2024-07-16 14:57 | Emergency (ER) | payer BC, SELFPAY ==
[2024-07-16 14:59] VITALS: BP 139/88; PULSE 85; RESP 20; TEMP 37.2; O2SAT 99
--- NOTE | 2024-07-16 15:10 | ED.URI ---
HPI - URI/Sore Throat General Chief Complaint: Upper Respiratory Infection Stated Complaint: nose/cough/fever History of Present Illness HPI Narrative: Patient presents with a 3 day history of nasal congestion cough and postnasal drainage. Patient states she is taking something [id number] for symptoms does not recall what it was. Patient denies any fever no body aches no shortness of breath no chest pain. Related Data Home Medications ?Medication ?Instructions ?Recorded ?Confirmed ?Last Taken ?Type escitalopram oxalate 10 mg tablet 10 mg PO DAILY 02/24/20 03/28/23 02/24/20 History levothyroxine 50 mcg tablet 50 mcg PO DAILY 09/07/20 03/28/23 Unknown History buspirone 10 mg tablet 10 mg PO BID 08/27/22 03/28/23 Unknown History Allergies Allergy/AdvReac Type Severity Reaction Status Date / Time No Known Allergies Allergy Verified 11/04/23 12:43 Review of Systems Review of Systems: CONSTITUTIONAL: Denies chills, or sweats. Reports fever and generalized body aches EYES: Denies visual changes, redness, or discharge. ENT: Denies otalgia. Reports nasal congestion runny nose and sore throat CARDIOVASCULAR: Denies chest pain, palpitations, or edema. RESPIRATORY: Denies dyspnea. Reports occasional cough GASTROINTESTINAL: Denies abdominal pain, nausea, vomiting, or diarrhea. GENITOURINARY: Denies dysuria or hematuria. SKIN: Denies rash or itching. MUSCULOSKELETAL: Denies back pain, joint pain, or myalgia. Reports generalized body aches NEUROLOGIC: Denies headache, numbness, or weakness. PSYCHIATRIC: Denies anxiety or depression. [facility] Past Medical History Medical History Depression Obese Thyroid disorder Surgical History Surgical History H/O partial thyroidectomy H/O thyroidectomy History of dilatation and curettage Family History Family History Mother Hypertension Father Hypertension Social History Social History Smoking status: Never smoker Alcohol intake: never Substance use: never Living arrangements: with family Gender identity (if verbalized by the patient): Female Sexual Orientation (if Verbalized by the Patient): Straight or Heterosexual Spiritual care concerns: No Comments At time of signature, agree with nursing past medical, surgical, social and family history. There is no relevant family history pertinent to the presenting complaint Exam Narrative: The patient is a well-developed, well-nourished in no acute distress. SKIN: Skin is warm and dry without erythema, swelling or exudate. There is good turgor. No tenting. HEAD: Atraumatic. Normocephalic. No temporal or scalp tenderness. EYES: Moist and bright. Sclera and conjunctivae normal. No discharge. PERRLA. Extraocular motions intact. Gross visual acuity intact. EARS: Pinna is normal shape and contour. Clear external auditory canals. TM pearly barnard with good cone of light, no erythema or suppuration. Bilateral cerumen noted no gross hearing deficit. NOSE: pink, moist mucosa with good air movement. Clear rhinorrhea without nasal flaring. Septum midline. Mouth: moist mucous membranes. THROAT; mild erythema noted to posterior oropharynx with moderate postnasal drainage. Without exudate or ulceration.. Uvula midline. Normal movement of soft palate. NECK: Supple and nontender with full range of motion without discomfort. No meningeal signs. LUNGS: Equal and bilateral breath sounds without wheezes, rales or rhonchi. CHEST: The chest wall is without retractions or use of accessory muscles. HEART: Has a regular rate and rhythm without murmur, gallops, click or rub. ABDOMEN: Soft, nontender with positive active bowel sounds. No rebound tenderness. EXTREMITIES: Without cyanosis, clubbing or edema. Equal 2+ distal pulses and 2 second capillary refill noted. NEUROLOGIC: alert, active, . The patient moves all extremities with normal muscle strength. Normal muscle tone is noted. Normal coordination is noted. NO focal neurological findings noted. Course Course Level of Care: Express Care Visit Vital Signs Vital signs: Vital Signs Oxygen Delivery Room Air 07/16/24 14:59 Oxygen Delivery Room Air 07/16/24 14:59 Discharge Plan Discharge Clinical Impression: Bronchitis, Upper respiratory infection Patient Disposition: Home, Self-Care Condition: Stable Instructions: Postnasal Drip (DC) Additional Instructions: congestion - flonase am and pm for chronic sinus congestion or prolonged symptoms of sinusitis (takes several days to work). one to three times a day of irrigation of sinus with saline spray, ocean nasal spray or petrona pot. fluids. if you don't have hypertension-afrin nasal spray with a 3 day limit for immediate relief of sinus congestion. for runny nose: do over the counter antihistamine (claritin, benadryl, zyrtec) for sneezing, runny nose. allergies. sudafed or decongestant can also be used, unless you have elevated blood pressure, nursing or . pineapple juice to help thin mucus pain and discomfort: over the counter treatment for pain - tylenol - with a max of 3 grams a day, not to take more than 3-4 days at this dose. discussed aleve - 1-2 am and pm with food. also not to take more than a few days if not improving. patient understands not to take ibuprofen or aleve without food. patient understands ibuprofen max is 4 pills 3 times a day, also not to take this amount for more than a few days if not improving. rest. -If you have any worsening of symptoms or any other concerns please go to the ED immediately. throat pain- gargling with salt water, throat losengers or chloraseptic spray may help with throat pain. if older than 2 years, cough- can try honey for cough if older than one year. mucinex, nyquil, dayquil, robitussin and other otc cold/cough medications can all be used in teenagers and adults with caution. do not mix or use multiple therapies without discussing with your doctor or pharmacy. steam from shower twice daily or cool mist humidifier. pineapple juice to help thin mucus -If you have any worsening of symptoms or any other concerns please go to the ED immediately. Patient Language: German Prescriptions: New benzonatate 100 mg capsule 100 mg PO TID PRN (Reason: cough) 5 Days Qty: 10 0RF loratadine [Claritin] 10 mg tablet 10 mg PO DAILY 14 Days Qty: 14 0RF prednisone 20 mg tablet 40 mg PO DAILY 5 Days Qty: 10 0RF fluticasone propionate [Flonase Allergy Relief] 50 mcg/actuation spray,suspension 2 spray NASAL BID Qty: 9.9 0RF Rx Instructions: administer into each nostril No Action levothyroxine 50 mcg Tablet 50 mcg PO DAILY buspirone 10 mg tablet 10 mg PO BID escitalopram oxalate 10 mg tablet 10 mg PO DAILY Follow-up/Referrals: Edmund,MD Georges [Primary Care Provider] - Stand Alone Forms: Work/School Release IP
--- OUTSIDE RECORDS SUMMARY | 2024-07-21 10:45 | XMS_ITS | Data Portability ---
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 Plan of Treatment Reminders Order Date Submit Date Provider Last Modified By Organization Details Last Modified Time Details Appointments None recorded. Lab H pylori urea breath test, co2 infrared 2023 024 [facility]AN[facility], [address] [place] [address] [address], [place], [address], 4 13:14:37 culture, wound 2023 024 [facility]ANTH [facility], [address] [place] [address] 2, [place], [address], 4 14:45:30 Referral gastroente rologist referral 2023 024 SRIKANTH Abbott, [address] [place] [address], [facility] [address], [address], 4 09:05:31 audiologis t referral 2023 024 CAS[facility], [address] [place] [address], [address], 4 17:38:28 Procedures None recorded. Surgeries None recorded. Imaging MAMMO, screening, digital, bilateral 2023 024 [email or web address]uling, 2 [facility] [place], [address], 4 09:10:59 US, breast, bilateral 2023 024 [email or web address] ([facility]) Scheduling, 2 [facility] [place], [address], 4 09:10:59 barium swallow study 2023 024 S[facility]KANTH [facility] ([facility]) Scheduling, 2 [facility] [place], [address], 4 16:10:26 Medication Orders ketoconazo le 2 % topical cream 2023 024 [facility][id number], [address], [place], [place], [id number], 4 14:10:52 escitalopr am 10 mg tablet 2023 024 [facility][id number], [address], [place], [place], [id number], 4 15:36:53 famotidine 20 mg tablet 2023 024 [id number], [address], [place], [place], [id number], 4 14:34:12 triamcinol one acetonide 0.1 % topical cream 2023 024 [facility], [address], [place], [place], [id number], 4 14:34:12 fluconazol e 150 mg tablet 2023 024 [facility], [address], [place], [place], [id number], 17:17:51 cephalexin 500 mg tablet 2023 024 [id number], [address], [place], [place], [id number], 10:49:27 Patient TargetsNo targets recorded. Patient Instructions Encounter Date Encounter Id Patient Instructions Last Modified By Organization Details Last Modified Time 03/24/2024 [id number] A healthy lifest yle: care instructions [email or web address] Not available 03/24/2024 15:37:04 learning about breast cancer screening [email or web address] Not available 03/24/2024 15:42:44 04/20/2024 [id number] A healthy lifest yle: care instructions Not available 04/20/2024 14:34:12 gastroesophageal reflux disease (GERD): care instructions Not available 04/20/2024 14:33:37 learning about t he mediterranean diet [email or web address] Not available 04/20/2024 14:33:37 Plan of care has been discussed with patient including expected therapeutic benefits and potential side effects of prescribed medication and treatments. Patient verbalizes understanding and is in agreement with the plan of care. Patient was instructed to keep all scheduled appointments and contact the clinic for any additional problems. 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 reased hearing Referring Physician: Piedad Jorge Family Medicine, Encounter Date: 04/20/2024 Results Created Date Observation Date Name Description Value Unit Range Abnormal Flag Note LastModifiedBy Organization Detail LastModifiedTime 06/12/20 24 06/15/2024 ANAER OBIC AND AEROB IC CULTU RE aerobic culture FINAL REPORT abnormal Not Available [facility] ([facility]) [address] [facility], [place], [address], 06/16/2024 14:45:30 06/12/20 24 06/15/2024 ANAER OBIC AND AEROB IC CULTU RE result 1 STAPHY LOCOCC US AUREUS abnormal Based on susce ptibi lity to oxaci llin this isola te would be susce ptibl e to: *Peni cilli nase- stabl e penic illin s, such as: Cloxa cilli n, Diclo xacil emilia, Nafci llin *Beta -lact am combi natio n agent s, such as: Amoxi cilli n-cla vulan ic acid, Ampic illin -sulb actam , Piper acill in-ta zobac rees *Oral cephe ms, such as: Cefac reymundo, Cefdi maria del rosario, Cefpo doxim e, Cefpr ozil, Cefur oxime , Cepha lexin , Lorac arbef *Pare ntera l cephe ms, such as: Cefaz flaco, Cefep tan, Cefot axime , Cefot toño, Cefta rolin e, Cefti zoxim e, Ceftr iaxon e, Cefur oxime *Carb apene ms, such as: Dorip enem, Ertap enem, Imipe nem, Merop enem Light growt h Not Available [facility] ([facility]) [address] [facility], [place], [address], 06/16/2024 14:45:30 06/12/20 24 06/15/2024 ANAER OBIC AND AEROB IC CULTU RE antimicrobia l susceptibili ty COMMEN T S = Susce ptibl e; I = Inter media te; R = Resis tant P = Posit ursula; N = Negat ursula MICS are expre ssed in micro grams per mL Antib iotic RSLT# 1 RSLT# 2 RSLT# 3 RSLT# 4 Cipro floxa alysa S Clind amyci n S Eryth romyc in R Genta micin S Levof loxac in S Linez olid S Moxif loxac in S Oxaci llin S Penic illin R Quinu prist in/Da lfopr istin S Rifam pin S Tetra cycli ne S Trime thopr im/Kaufman lfa S Vanco mycin S Not Available [facility] ([facility]) [address] [facility], [place], [address], 06/16/2024 14:45:30 06/12/20 24 06/16/2024 ANAER OBIC AND AEROB IC CULTU RE anaerobic culture FINAL REPORT Not Available [facility] ([facility]) [address] [facility], [place], [address], 06/16/2024 14:45:30 06/12/20 24 06/16/2024 ANAER OBIC AND AEROB IC CULTU RE result 1 COMMEN T No anaer obic growt h in 72 hours . Not Available [facility] ([facility]) [address] [facility], [place], [address], 06/16/2024 14:45:30 04/28/20 24 04/28/2024 blade ortiz study No observ ation record ed. S[facility]KANTH [facility] ([facility]) Scheduling [address] [place], [address], 05/01/2024 16:12:45 Result Notes None recorded. Problems Name Problem SNOMED Code Status Onset Date Resolution Date Notes Provider Name and Address Organization Details Recorded Time Folliculitis 17476298 Active LLUVIA O[place], [place] [facility] 17:31:11 Abscess 434277025 Active Anna Davis [place] [facility] 17:31:11 History of surgery 518483551 Active Anna [place] [facility] 17:31:11 History of subtotal thyroidectomy 883456035 [place] LLUV[place] [facility] 17:31:11 Depressive disorder 72013633 Active Anna [place] [facility] 17:31:11 Disorder of thyroid gland 28285784 [place] LLUV[place] [facility] 17:31:11 Abscess of skin and/or subcutaneous tissue 33582576 Active LLUVIA Ose[place], [place] [facility] 17:31:11 Problem Notes None recorded. Procedures Surgical History Date Name Laterality Status Provider Name and Address Organization Details Recorded Time 4 I&D completed JOSE ROSADO MD Attn: Accounting,[address] [facility], [place], [address], [place] - [facility] 06/12/2024 17:19:04 3 Date of Last Pap Smear completed Mirlande Tolliver [place] - [facility] 02/10/2024 15:02:54 8 colonoscopy completed Anjana Contreras [place] - [facility] 11/25/2018 10:33:20 Removal of thyroid completed Mirlande Tolliver MA [place] - [facility] 01/01/2023 16:18:21 Imaging Results Imaging Date Name Status LastModified by Organiz ation Details LastModified Time 04/28/[address]24 [address] [facility] Scheduling [address] [place], [address], 05/01/2024 16:12:45 Procedure Notes None recorded. Medical Equipment None Reported. Allergies Allergen ID Allergen Name Allergen Category Reaction Reaction Severity Criticality Documentation Date Start Date Code Code System Note Provider Name and Address Organization Details Recorded Time 820091 No known allergy (situatio n) Not available Not available Not available Not available 05/13/2021 [id number] SNOMED Anna LLUVIA Davis angelique, [place] [facility] 17:31:11 No known drug allergies Medications Name Sig Start Date Stop Date Status Note LastModified by Organization Details LastModified Time Prescriptio n - Prior Authorizati on Request active Not Available Not Available N ot Available tetracyclin e 500 mg capsule active Not Available Not Available Not Available cyclobenzap rine 10 mg tablet TAKE 1 TABLET BY MOUTH THREE TIMES DAILY FOR UP TO 7 DAYS NEEDED FOR MUSCLE SPASMS 03/24 completed Not Available Not Available Not Available amoxicillin 500 mg capsule TAKE 2 CAPSULES BY MOUTH IN THE MORNING AND AT BEDTIME FOR 14 DAYS FOR ABDOMINAL INFECTION active Not Available Not Available No t Available budesonide 32 mcg/actuati on nasal spray Take 2 sprays twice a day by nasal route. 05/06 /2019 completed Not Available Not Available Not Available clindamycin HCl 300 mg capsule TAKE 1 CAPSULE BY MOUTH EVERY 6 HOURS FOR 10 DAYS 04/22 completed Not Available Not Available Not Available cetirizine 10 mg tablet TAKE 1 TABLET BY MOUTH DAILY FOR 14 DAYS 04/20 completed Not Available Not Available Not Available fluconazole 150 mg tablet Take one tablet by mouth today and one tablet after completin g antibioti cs. active Not Available Not Available No t Available benzonatate 200 mg capsule TAKE 1 CAPSULE BY MOUTH THREE TIMES DAILY DIRECTED 11/16 completed Not Available Not Available Not Available clarithromy alysa 500 mg tablet TAKE 1 TABLET BY MOUTH TWICE DAILY FOR 14 DAYS FOR ABDOMINAL INFECTION active Not Available Not Available No t Available hydrocodone 5 mg-acetamin ophen 325 mg tablet TAKE 1 TO 2 TABLETS BY MOUTH EVERY 4 HOURS NEEDED FOR MODERATE OR MORE SEVERE PAIN FOR UP TO 5 DAYS 04/20 completed Not Available Not Available Not Available ondansetron HCl 8 mg tablet TAKE 1 TABLET BY MOUTH TWICE DAILY FOR 10 DAYS NEEDED 04/22 completed Not Available Not Available Not Available ondansetron HCl 4 mg tablet TAKE 1-2 TABLETS BY MOUTH EVERY 8 HOURS NEEDED FOR NAUSEA - 1ST LINE active Not Available Not Available No t Available prednisone 20 mg tablet TAKE 1 TABLET BY MOUTH TWICE DAILY 07/06 completed Not Available Not Available Not Available metronidazo le 500 mg tablet TAKE 1 TABLET BY MOUTH FOUR TIMES DAILY FOR 10 DAYS active Not Available Not Available No t Available fexofenadin e 180 mg tablet 12/05 completed Not Available Not Available Not Available ciprofloxac in 500 mg tablet Take 1 tablet every 12 hours by oral route for 10 days. 07/30 completed Not Available Not Available Not Available sulfamethox azole 800 mg-trimetho prim 160 mg tablet TAKE 1 TABLET BY MOUTH TWICE DAILY FOR 10 DAYS 11/16 completed Not Available Not Available Not Available tramadol 50 mg tablet TAKE 1 TABLET BY MOUTH EVERY 8 HOURS NEEDED FOR MODERATE TO SEVERE PAIN active Not Available Not Available No t Available acetaminoph en 500 mg tablet TAKE 1 CAPSULE BY MOUTH EVERY 6 HOURS NEEDED FOR PAIN 03/24 completed Not Available Not Available Not Available triamcinolo ne acetonide 0.1 % topical cream APPLY THIN LAYER TOPICALLY TO THE AFFECTED AREA TWICE DAILY FOR 1 TO 2 WEEKS active Not Available Not Available No t Available amoxicillin 500 mg tablet TAKE 1 TABLET BY MOUTH EVERY 8 HOURS FOR 10 DAYS active Not Available Not Available No t Available ketorolac 10 mg tablet TAKE 1 TABLET BY MOUTH EVERY 6 HOURS FOR UP TO 5 DAYS NEEDED FOR MODERATE TO SEVERE PAIN 04/20 completed Not Available Not Available Not Available levothyroxi ne 75 mcg tablet TAKE 1 TABLET BY MOUTH EVERY DAY 2023 active Not Available Not Available Not Avai lable neomycin-ba citracin-po lymyxn 3.5 mg-400 unit-10,000 unit/gram eye oint APPLY TO LEFT EYE FOUR TIMES DAILY 04/22 completed Not Available Not Available Not Available amoxicillin 875 mg tablet TAKE 1 TABLET BY MOUTH EVERY 12 HOURS FOR 10 DAYS 05/18 completed Not Available Not Available Not Available famotidine 20 mg tablet Take 1 tablet every day by oral route as needed for 30 days. 2023 active Not Available Not Available Not Avai lable benzonatate 100 mg capsule TAKE 1 CAPSULE BY MOUTH THREE TIMES DAILY FOR UP TO 10 DAYS NEEDED FOR COUGH 03/24 completed Not Available Not Available Not Available doxycycline monohydrate 100 mg capsule TAKE 1 CAPSULE BY MOUTH TWICE DAILY 05/13 completed Not Available Not Available Not Available levothyroxi ne 50 mcg tablet TAKE 1 TABLET BY MOUTH EVERY DAY 11/17 completed Not Available Not Available Not Available cephalexin 500 mg capsule Take 1 capsule every 12 hours by oral route for 5 days. active Not Available Not Available No t Available pantoprazol e 40 mg tablet,luis yed release active Not Available Not Available Not Available erythromyci n 5 mg/gram (0.5 %) eye ointment 12/05 completed Not Available Not Available Not Available ranitidine 150 mg tablet Take 1 tablet twice a day by oral route. 03/16 completed Not Available Not Available Not Available buspirone 10 mg tablet TAKE 1 TABLET BY MOUTH TWICE DAILY active Not Available Not Available No t Available indomethaci n 50 mg capsule TAKE 1 CAPSULE BY MOUTH THREE TIMES DAILY FOR UP TO 7 DAYS NEEDED FOR MODERATE TO SEVERE PAIN 03/24 completed Not Available Not Available Not Available diclofenac potassium 50 mg tablet TAKE 1 TABLET BY MOUTH 2 TIMES DAILY FOR 30 DAYS 07/06 completed Not Available Not Available Not Available omeprazole 20 mg capsule,del ayed release TAKE 1 CAPSULE BY MOUTH EVERY DAY active Not Available Not Available No t Available cephalexin 500 mg tablet Take 1 tablet every 12 hours by oral route for 5 days, for abscess. 06/13 completed Not Available Not Available Not Available montelukast 10 mg tablet 12/05 completed Not Available Not Available Not Available codeine 10 mg-guaifene sin 100 mg/5 mL oral liquid TAKE 10 ML BY MOUTH EVERY 4 HOURS NEEDED FOR 10 DAYS 11/16 completed Not Available Not Available Not Available gabapentin 100 mg capsule TAKE 1 CAPSULE BY MOUTH THREE TIMES DAILY 2023 active Not Available Not Available Not Avai lable lorazepam 1 mg tablet TAKE 1/2 TABLET BY MOUTH EVERY 8 HOURS FOR UP TO 10 DAYS NEEDED FOR ANXIETY 07/06 completed Not Available Not Available Not Available ibuprofen 600 mg tablet 03/24 completed Not Available Not Available Not Available methylpredn isolone 4 mg tablets in a dose pack FOLLOW PACKAGE DIRECTION S FOR COLD SYMPTOMS FOR 6 DAYS 02/09 completed Not Available Not Available Not Available albuterol sulfate HFA 90 mcg/actuati on aerosol inhaler INHALE 2 PUFFS BY MOUTH FOUR TIMES DAILY NEEDED FOR SHORTNESS OF BREATH OR WHEEZING 04/20 completed Not Available Not Available Not Available ketorolac 60 mg/2 mL intramuscul ar solution Inject 2 mL by intramusc ular route. 11/16 completed Not Available Not Available Not Available ketoconazol e 2 % topical cream APPLY TOPICALLY TO THE AFFECTED AREA DAILY FOR 2 WEEKS 04/20 completed Not Available Not Available Not Available ondansetron 4 mg disintegrat ing tablet take 1 tablet by mouth every 8hrs as needed 03/16 completed Not Available Not Available Not Available fluticasone propionate 50 mcg/actuati on nasal spray,suspe nsion SHAKE LIQUID AND USE 2 SPRAYS IN EACH NOSTRIL TWICE DAILY 03/24 completed Not Available Not Available Not Available dicyclomine 10 mg capsule TAKE ONE CAPSULE BY MOUTH TWICE DAILY BEFORE A MEAL active Not Available Not Available No t Available naproxen 500 mg tablet TAKE 1 TABLET BY MOUTH TWICE DAILY 04/22 completed PRN per pt Not Available Not Available Not Available amoxicillin 875 mg-potassiu m clavulanate 125 mg tablet TAKE 1 TABLET BY MOUTH EVERY 12 HOURS FOR 10 DAYS 01/08 completed Not Available Not Available Not Available azithromyci n 500 mg tablet Take 1 tablet every day by oral route for 3 days. 02/05 completed Not Available Not Available Not Available escitalopra m 10 mg tablet TAKE 1 TABLET BY MOUTH EVERY DAY active Not Available Not Available No t Available nitrofurant oin monohydrate /macrocryst als 100 mg capsule 12/15 completed Not Available Not Available Not Available diclofenac 1 % topical gel APPLY ON THE SKIN THREE TIMES DAILY 12/04 completed Not Available Not Available Not Available ProAir RespiClick 90 mcg/actuati on breath activated one puff every 4-6 hours as needed 02/05 completed Not Available Not Available Not Available naloxone 4 mg/actuatio n nasal spray INSTILL 1 SPRAY BY NASALROUT E NEEDED FOR SYMPTOMS OF OVERDOSE. CALL 911 REPEAT DOSE IN OTHER NOSTRIL IN 2-3 MINUTES IF NEEDED 04/14 completed Not Available Not Available Not Available Vitals Date Recorded Body height Body mass index (BMI) Body weight Oxygen saturation Oxygen saturation in Arterial blood by Pulse oximetry Heart rate Body temperature Systolic blood pressure Diastolic blood pressure Provider Name and Address Organization Details Last Updated DateTime 4 154.94 cm 45.4 kg/m2 053554. 22 g 98 % 98 % 80 /min 98.1 [degF] 116 mm[Hg] 89 mm[Hg] Mirlande Tolliver [facility] 4 14:59:07 Date Recorded Body height Body mass index (BMI) Body weight Oxygen saturation Oxygen saturation in Arterial blood by Pulse oximetry Heart rate Systolic blood pressure Diastolic blood pressure Provider Name and Address Organization Details Last Updated DateTime 4 154.94 cm 45.5 kg/m2 174705. 76 g 98 % 98 % 84 /min 112 mm[Hg] 80 mm[Hg] Anna Davis [place] - [facility] 4 15:23:33 Date Recorded Body height Body mass index (BMI) Body weight Oxygen saturation Oxygen saturation in Arterial blood by Pulse oximetry Heart rate Respiratory rate Systolic blood pressure Diastolic blood pressure Provider Name and Address Organization Details Last Updated DateTime 4 154.94 cm 45.9 kg/m2 287047. 23 g 98 % 98 % 78 /min 16 /min 108 mm[Hg] 71 mm[Hg] Elaine Farrell MA [facility] 4 14:13:23 Date Recorded Body height Body mass index (BMI) Body weight Oxygen saturation Oxygen saturation in Arterial blood by Pulse oximetry Heart rate Respiratory rate Systolic blood pressure Diastolic blood pressure Provider Name and Address Organization Details Last Updated DateTime 4 154.94 cm 46.3 kg/m2 157478. 41 g 97 % 97 % 82 /min 16 /min 119 mm[Hg] 84 mm[Hg] Elaine Farrell MA [facility] 4 15:35:46 Date Recorded Body height Body mass index (BMI) Body weight Oxygen saturation Oxygen saturation in Arterial blood by Pulse oximetry Heart rate Body temperature Systolic blood pressure Diastolic blood pressure Provider Name and Address Organization Details Last Updated DateTime 4 154.94 cm 45.3 kg/m2 520328. 17 g 98 % 98 % 92 /min 98.9 [degF] 137 mm[Hg] 88 mm[Hg] Vangie Yoo MA [facility] 4 16:19:51 Social History Question Answer Notes LastModified by Organizat ion Details LastModified Time Tobacco Smoking Status Former Smoker Anjana Contreras MA [facility], [facility] 12/05/2018 14:09:15 What Is Your Level Of Alcohol Consumption? Occasional Information not available 04/22/2022 Are You Blind Or Do You Have Difficulty Seeing? No Information not available 01/08/2021 What Is Your Level Of Caffeine Consumption? Heavy Information not available 12/05/2018 In The 14 Days Before Symptom Onset, Have You Had Close Contact With A Laboratory-confi rmed COVID-19 While That Case Was Ill? No Information not available 10/17/2020 In The 14 Days Before Symptom Onset, Have You Had Close Contact With A Person Who Is Under Investigation For COVID-19 While That Person Was Ill? No Information not available 10/17/2020 Have You Been To An Area Known To Be High Risk For COVID-19? No Information not available 10/17/2020 Are You Currently Employed? Yes Information not available 02/06/2020 Are You Deaf Or Do You Have Serious Difficulty Hearing? No Information not available 01/08/2021 What Type Of Diet Are You Following? REGULAR Information not available 12/05/2018 Which Illicit Or Recreational Drugs Have You Used? None Information not available 12/05/2018 Do You Or Have You Ever Used E-cigarettes Or Vape? 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 No Information not available 01/08/2021 Live Alone Or With Others? With Others Information not available 02/06/2020 What Was The Date Of Your Most Recent Tobacco Screening? 04/25/2024 Information not available 04/25/2024 What Is Your Relationship Status? Information not available 10/17/2020 Do You Have Smoke And Carbon Monoxide Detectors In Your Home? Yes Information not available 01/08/2021 Are You Passively Exposed To Smoke? No Information not available 01/08/2021 Do You Or Have You Ever Used Smokeless Tobacco? Never Used Smokeless Tobacco Information not available 02/06/2020 How Much Tobacco Do You Smoke? No Information not available 02/06/2020 Do You Feel Stressed (tense, Restless, Nervous, Or Anxious, Or Unable To Sleep At Night)? [id number] Hard Time Sleeping Information not available 04/22/2022 Do You Use Any Illicit Or Recreational Drugs? No Information not available 10/17/2020 Has Tobacco Cessation Counseling Been Provided? No Information not available 05/13/2021 On What Date Was Tobacco Cessation Counseling Provided? 04/25/2024 Information not available 04/25/2024 Do You Or Have You Ever Used Any Other Forms Of Tobacco Or Nicotine? No Information not available 05/13/2021 Sex: Unknown Functional Status Question Answer Note LastModified by Organization D etails LastModified Time Are you able to care for yourself? Yes Information n ot available 02/06/2020 Mental Status None recorded. Family History Relationship Description Onset Age of this Age Resolved Age Notes LastModified by Organization Details LastModified Time Father Hypertensive disorder [email or web address] Not available 11/30 16:15:10 Mother Hypertensive disorder [email or web address] Not available 11/30 16:15:10 Medical History Condition Response Coronary Artery Disease N Other N High Blood Pressure N Atrial Fibrillation N Kidney or Bladder Problems N Thyroid Problems Y GI Problems N Depression N COPD N Blood Clots N Skin Problems N Anemia N Heart Attack (CO) N Anxiety Disorder N Diabetes N Muscle, Joint, or Bone Problems N Seizures/Epilepsy N Acid Reflux (GERD) N Cancer N Stroke N Asthma N Allergies N High Cholesterol N Hepatitis N Liver Disease N Headaches N Heart Failure N Osteoporosis N Gynecological History Statement/Question Response If Post Menopausal, Age at Menopause Date of Last Mammogram Date of Last Pap Smear 01/01/2023 Current Control Method Menopause Age at First Child 25 LMP Unknown Obstetrics History GPAL:G 2 P 1 0 1 1 Type Value Full Term 1 Spontaneous 1 Living 1 Total 2 Immunizations Vaccine Type Date Status Note Provider Nam e and Address Organization Details Recorded Time COVID-19, mRNA, LNP-S, PF, 100 mcg/0.5mL dose or 50 mcg/0.25mL dose 1 completed Anna Davis [place] null, [place] - [facility] 11/17/2022 12:26:02 COVID-19, mRNA, LNP-S, PF, 100 mcg/0.5mL dose or 50 mcg/0.25mL dose 1 completed LLUVIA Osei, [place] [facility] 11/17/2022 12:26:02 COVID-19, mRNA, LNP-S, PF, 100 mcg/0.5mL dose or 50 mcg/0.25mL dose 1 completed Anna [place] [facility] 11/17/2022 12:26:02 COVID-19, mRNA, LNP-S, bivalent, PF, 30 mcg/0.3 mL dose 2 completed [place] [facility] 06/30/2022 17:50:50 Influenza, split virus, quadrivalent, PF 2 completed Anna [place] [facility] 06/30/2022 18:32:36 Influenza, split virus, quadrivalent, preservative 3 completed Piedad Beckman [place], [place] [facility] 05/18/2023 17:09:22 Past Encounters Encounter ID Performer Location Encounter Start Date Encounter Closed Date Diagnosis/Indication Diagnosis SNOMED-CT Code Diagnosis ICD10 Code [id number] Azeem Martinez PA-C [facility] [address] [place] [address] 12/15/2017 16:01:41 12/15/2017 17:37:09 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 Pain in fi nger of right hand 3710993687 89526 M79.644 Chronic di arrhea of unknown origin 32213596 K52.3 Hypothyroidism 61290082 E03.9 [id number] Azeem Martinez PA-C [facility] [address] [place] [address] 12/24/2017 16:34:16 12/24/2017 17:23:15 Costal chondritis 52071931 M94.0 [id number] Azeem Martinez PA-C [facility] [address] [place] [address] 04/19/2018 15:16:30 04/19/2018 16:05:36 Increased frequency of urination 486856640 R35.0 Unexplaine d weight loss 421789835 R63.4 Upper resp iratory infection 87439964 J01.01 [id number] Azeem Martinez PA-C [facility] [address] [place] [address] 04/26/2018 10:55:58 04/26/2018 11:21:02 Acute pharyngitis 744116382 J02.8 Hypothyroidism 93782241 E00.0 [id number] [facility] [address] [place] [address] 07/18/2018 11:27:45 07/18/2018 12:19:33 Hypothyroidism 43290597 E00.0 Body mass index 40+ - severely obese 473650378 Z68.41 Pain in fi nger of left hand 2800332705 03650 M79.645 Crushing i njury of finger 24441279 S67.193A [id number] Azeem Martinez PA-C [address] [address] 12/05/2018 13:54:43 12/05/2018 14:47:54 Goiter 2209019 E04.9 Screening for malignant neoplasm of breast 468788068 Z12.31 [id number] Azeem Martinez PA-C [address] [address] 03/16/2019 14:55:12 03/16/2019 17:08:12 Pain in right foot 0004919173 27475 M79.988 [id number] Azeem Martinez PA-C [address] [address] 05/04/2019 15:40:55 05/04/2019 16:43:03 Acute bronchitis with bronchospasm 47488707 J20.8 [id number] Azeem Martinez PA-C [address] [address] 06/27/2019 14:45:08 06/27/2019 16:13:18 Acute bronchitis with bronchospasm 36867325 J20.8 Acute bronchitis 7686639 2 J20.9 [id number] Azeem Martinez PA-C [facility] [address] [place] [address] 02/06/2020 09:55:51 02/06/2020 15:49:18 Irritable bowel syndrome with diarrhea 993570203 K58.0 Hypothyroidism 89438954 E00.0 [id number] Azeem Martinez PA-C [facility] [address] [place] [address] 02/13/2020 15:33:42 02/13/2020 16:17:55 Irritable bowel syndrome with diarrhea 309703546 K58.0 Chronic diarrhea 8332327 09 K52.9 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 Chronic depression 41410 0009 F34.1 [id number] Azeem Martinez PA-C [facility] [address] [place] [address] 02/20/2020 13:45:02 02/20/2020 16:58:01 Hypothyroidism 57976399 E00.0 [id number] JEFF RENTERIAsor[facility] [address] [place] [address] 04/05/2020 15:24:12 04/09/2020 10:30:48 Viral screening 589021545 Z11.59 [id number] Azeem Martinez PA-C [facility] [address] [place] [address] 06/26/2020 09:39:19 06/26/2020 15:33:02 Ingrowing nail of toe of left foot 6172044397 8533182 L60.0 [id number] Maribell Devi, PENSION EXAMINER-BC [facility] [address] [place] [address] 07/01/2020 13:58:52 07/02/2020 12:23:38 Suspected COVID-19 812931869 Z03.89 [id number] Azeem Martinez PA-C [facility] [address] [place] [address] 10/17/2020 15:14:55 10/22/2020 11:26:52 Cellulitis of face 534648821 L03.112 [id number] HARJIT Garvey [facility] [address] [place] [address] 01/08/2021 14:45:25 01/08/2021 16:06:53 Abscess of left axilla 2501514018 0459809 L02.412 Pain in left foot 004793 4832 11198 M79.135 [id number] HARJIT Garvey [address] [place] [address] 05/13/2021 16:41:37 05/13/2021 18:01:51 Pain in left foot 1487387908 24664 M79.672 Body mass index 30+ - obesity 302719151 Z68.41 [id number] Anna Davis MA [facility] [address] [place] [address] 12/04/2021 14:27:00 12/04/2021 15:41:05 Low back pain 376728383 M54.50 Backache w ith radiating pain 270342378 M54.05 Goiter 7660076 E04.9 Adult heal th examination 718018430 Z00.00 Generalize d anxiety disorder 85953392 F41.1 [id number] Azeem Martinez PA-C [facility] [address] [place] [address] 04/22/2022 14:43:43 04/22/2022 16:02:38 Overweight 507277423 E66.3 Chronic he adache disorder 478145521 G44.89 [id number] Anna Davis MA [facility] [address] [place] [address] 06/30/2022 16:51:56 06/30/2022 17:54:01 Administration of SARS-CoV-2 antigen vaccine 391541049 Z23 [id number] Anna Davis MA [facility] [address] [place] [address] 06/30/2022 16:54:18 07/01/2022 12:27:51 Administration of influenza vaccine 90579267 Z23 [id number] Azeem Martinez PA-C [facility] [address] [place] [address] 11/16/2022 15:59:05 11/18/2022 13:22:11 Low back pain 763189902 M54.59 Backache w ith radiating pain 556482858 M54.9 Overweight 323909428 E66 .3 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 452287098 E06.3 Screening for malignant neoplasm of breast 917351194 Z12.31 [id number] MD Maria Guadalupe MARCUM ([employer]) [address] [place] [address] 01/01/2023 15:39:04 01/19/2023 08:40:06 Screening for malignant neoplasm of cervix 540531250 Z12.4 Screening for malignant neoplasm of colon 768359960 Z12.11 Screening for malignant neoplasm of breast 715043301 Z12.31 Routine gy necologic examination done 8601840724 9101 Z01.271 [id number] Azeem Martinez PA-C [facility] [address] [place] [address] 04/14/2023 14:29:07 04/15/2023 16:11:56 Tinea corporis 01801041 B35.4 Overweight 678768679 E66 .3 [id number] Azeem Martinez PA-C [facility] [address] [place] [address] 05/18/2023 15:44:32 05/27/2023 10:14:10 Administration of influenza vaccine 77084028 Z23 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 556926736 E06.3 Mixed anxi ety and depressive disorder 531343958 F41.8 Overweight 651425648 E66 .3 Adult heal th examination 665419943 Z00.00 Squamous c ell carcinoma of skin 159110239 C44.584 [id number] Azeem Martinez PA-C [facility] [address] [place] [address] 07/06/2023 14:12:45 07/07/2023 09:34:05 Lumbar radiculopathy 582512904 M54.16 [id number] MD Maria Guadalupe MARCUM ([employer]) [address] [place] [address] 02/10/2024 14:47:07 03/01/2024 13:13:40 Tinea cruris 098776787 B35.6 [id number] Azeem Martinez PA-C [facility] [address] [place] [address] 03/24/2024 14:38:10 03/27/2024 14:26:18 Chronic depression 887251891 F34.1 History of polyp of colon 712942148 Z86.010 Overweight 983554702 E66 .3 Screening for malignant neoplasm of breast 929503238 Z12.31 [id number] [facility] [address] [place] [address] 04/20/2024 13:56:25 04/24/2024 09:00:33 Eczema 18295743 L30.9 Gastroesop hageal reflux disease without esophagitis 857090674 K21.9 Decreased hearing 820611 001 H91.90 Body mass index 40+ - severely obese 118010598 Z68.42 Dysphagia 91942980 R13.1 0 HIV screen ing declined 4429584783 26535 Z53.20 [id number] Azeem Martinez PA-C [facility] [address] [place] [address] 04/25/2024 14:26:30 05/02/2024 14:34:09 Helicobacter pylori gastrointestinal tract infection 944780954 B96.81 Gastroesop hageal reflux disease without esophagitis 601555061 K21.9 [id number] JOSE ROSADO MD [facility] ([employer]) [address] [place] [address] 06/12/2024 16:04:56 06/16/2024 07:40:44 Abscess of skin and/or subcutaneous tissue 19794359 L02.91 Candidal intertrigo 2661 90821 B37.2 Health Concerns Section Related Observation LastModified by Organization Detai ls LastModified Time None Recorded Concern Status LastModified by Organization Details LastModified Time None Recorded Advance Directives Directive None Recorded Payers Encounter Date Sequence Insurance Name Policy Number Policy Bravo Covered Member ID Bravo Member ID Guarantor Name 02/10/2024 1 [id number] Elizabeth Oates [id number] Elizabeth Goodenley 03/24/2024 1 [place] [id number] Elizabeth Oates [id number] Elizabeth Goodenley 04/20/2024 1 [place] [id number] Elizabeth Oates [id number] Elizabeth Goodenley 04/25/2024 1 [place] [id number] Elizabeth Oates [id number] Elizabeth Goodenley 06/12/2024 1 [place] [id number] Elizabeth Oates [id number] Elizabeth Oates Notes Date Note Type Note Provider Name and Address Organization Details Recorded Time 02/10/2024 text/html Vulvar rash- Has had red and itchy rash of vulvar area for 2-3 days- No new detergents, body products- Did try Summer's E[employer] wipes without improvement in symptoms JOSE ROSADO MD Attn: Accounting, [address] [place], [address], [facility] 02/28/2024 16:34:50 03/24/2024 text/html problems with ga s pain every time she eats...last colonoscopy was 6 years ago and she had polyps... Azeem Martinez PA-C Attn: Accounting, [address] [place], [address], [facility] 03/24/2024 15:43:03 04/20/2024 text/html Patient presents to the clinic with acute complaint of GERD/Gas pains and a rash. Patient is established with Narciso GRIDER for primary care. Patient's past medical history includes: thyroidectomy, depression, and colon polyp. Rash-Patient reports having a rash to right outer elbow that developed 1 week ago.-Patient reports skin discoloration and itching to the site.-Patient has been applying moisturizing lotion to the site with no relief.-Patient reports other family members have been diagnosed with eczema Gas-Patient reports she eats strawberries and bananas. Patient reports she eats chips/junk food regularly. She eats fried foods once per month. Patient reports she normally drinks pepsi but she has been drinking more water recently. Patient admits to drinking 2L of soda per day.-Patient reports she has been taking the pain medication she obtained in the ED. TREVIN REID Attn: Accounting, [address] [place], [address], [facility] 04/20/2024 17:10:58 04/25/2024 text/html is concerned re ulcer and positive H Pylori...has a family hx of ulcers Azeem Martinez PA-C Attn: Accounting, [address] [facility] [place], [address], [facility] 04/25/2024 16:05:55 06/12/2024 text/html Right inguinal boil- Lesion appeared about 3 days ago- Has been using warm compresses- No fevers or chills. Tmax 99 today. JOSE ROSADO MD Attn: Accounting[address] [facility], [place], [address], [facility] 06/12/2024 17:24:05 OBGyn Episode Ob Episode Information Episode Created Date Number of Fetuses Patient Bloodtype Patient rh Status Prepregnancy Weight lbs Domestic Partner Domestic Partner Phone Father Name Playroom Attendant Status 01/02/20 23 1 CLOSED Fetus Data First Name Last Name Admitted to NICU Weight (g) Sex Living Outcome Pediatric Complications Fetus ID Race Codes Race Delivery Type M Full Term [id number] Vaginal Katie Calculation KATIE Calculation Method Initial Katie Date Initial Exam Date Initial Exam Provider Initial Ultrasound Date Last Menstrual Period Date Ultra Sound Weeks Gestation Conception by IVF Embryo Age at Transfer Date of Transfer 0 Eighteen To Twenty Week Katie Update Ultra Sound Date Fundal Height At Umbil Quickening Date Ultra Sound Latest Weeks Gestation Final Katie Confirmed By Final Katie Confirmed Date Final Katie Date Ultra Sound Latest Days Gestation 0 0 Menstrual History Last Menstrual Date Menses Monthly On Bcp Conception Prior Menses Frequency Hcg Plus Date Menarche Onset Age Delivery Information Delivery Date Delivery Type Labor Anesthesia Weeks Gestation Incision Type Labor Labor Length Hrs Delivered By Post Complications Tubal Sterilization Discharge Date Comments 9 Discharge Information Feeding Method Contraceptive Method Maternal HG B and HCT Levels
--- OUTSIDE RECORDS SUMMARY | 2024-07-21 10:46 | XMS_ITS | Encounter Summary ---
Author Organization [facility] Address [address] [place] [address] Phone Care Team Providers Care Prescription Clerk Lenses Name Role Phone Tomasz Martinez Primary Care Provider [phone] Reason for Visit * Reason Comments Cough Chest Congestion Encounter Details Date Type Department Care Team ([facility] st Contact Info) Description 07/12/2023 1:17 AM CUSTOM BIKE BUILDER - 07/12/2023 2:56 AM CUSTOM BIKE BUILDER Emergency [facility] Emergency [address] [place] [address] Cesar Galvan MD [address] [place] [address] Cough Discharge Disposition: Discharged to home or Selfcare Social History Tobacco Use Types Packs/Day Years Used Date Smoking Tobacco: Never Smokeless Tobacco: Never Alcohol Use Standard Drinks/Week Comments Yes 0 (1 standard drink = 0.6 oz pur e alcohol) rarely Comments No Sex and Gender Information Value Date Recorded Sex Assigned at Not on file Legal Sex Female 8:09 PM CDT Gender Identity Not on file Sexual Orientation Not on file documented as of this encounter Last Filed Vital Signs Vital Sign Reading Time Taken Comments Blood Pressure 140/80 07/12/2023 2:52 AM CUSTOM BIKE BUILDER Pulse 80 07/12/2023 2:52 AM CUSTOM BIKE BUILDER Temperature 36.6 ??C (97.8 ??F) 07/12/2023 1:19 AM CS T Respiratory Rate 20 07/12/2023 2:52 AM CUSTOM BIKE BUILDER Oxygen Saturation 99% 07/12/2023 2:52 AM CUSTOM BIKE BUILDER Inhaled Oxygen Concentration - - Weight 104.9 kg (231 lb 4.2 oz) 07/12/2023 1:19 AM CUSTOM BIKE BUILDER Height 154.9 cm (5' 1 ) 07/12/2023 1:19 AM CUSTOM BIKE BUILDER Body Mass Index 43.7 07/12/2023 1:19 AM CUSTOM BIKE BUILDER documented in this encounter Discharge Instructions * Attachments The following attachments cannot be sent through Care Everywhere. * Cough Adult (Czech) * Viral Respiratory Infection (Czech) documented in this encounter Medications at Time of Discharge albuterol 108 (90 Base) MCG/ACT Aerosol Solution take 2 Puffs by inhalation every 6 hours as needed for Wheezing. 8 g 07/28/2021 busPIRone (BUSPAR) 5 MG Tablet Take 5 mg by mouth. escitalopram (LEXAPRO) 10 MG Tablet Take 10 mg by mouth daily. HYDROcodone-acet aminophen (NORCO) 5-325 MG TabletIndication s:Acute right-sided low back pain without sciatica Take 1 Tablet by mouth every 4 hours as needed for Moderate or more severe pain. 12 Tablet 06/04/2023 levothyroxine (SYNTHROID) 50 MCG Tablet Take 50 mcg by mouth daily. LORazepam (ATIVAN) 1 MG Tablet Take 0.5 Tabs by mouth every 8 hours as needed for Anxiety. 15 Tab 07/07/2020 naloxone HCl (Narcan) 4 MG/0.1ML Liquid 1 Wray by Nasal route as needed (opioid overdose). administer for symptoms of overdose (severe sleepiness, breathing problems, not responsive). Call 911. May use additional dose to repeat 1 spray intranasally in 2-3 minutes if needed. 2 Each 11/11/2022 naproxen (NAPROSYN) 500 MG Tablet Take 1 Tablet by mouth 2 times daily as needed for Moderate or more severe pain. 20 Tablet 01/24/2021 ondansetron (ZOFRAN) 4 MG Tablet Take 1-2 Tablets by mouth every 8 hours as needed for Nausea - 1st line. 10 Tablet 07/12/2023 ondansetron (ZOFRAN) 4 MG Tablet Take 1-2 Tablets by mouth every 8 hours as needed for Nausea - 1st line. 10 Tablet 05/23/2022 benzonatate (TESSALON) 100 MG Capsule Take 1 Capsule by mouth 3 times daily as needed for Cough for up to 10 days. 30 Capsule 07/12/2023 documented as of this encounter ED Notes * Daniela Hansen RN - 07/12/2023 2:53 AM CST Patient discharged. Discharge instructions and patient educational material reviewed with patient; questions and concerns addressed; patient verbalizes understanding, using teach back. Patient was given 2 prescriptions. Patient was informed no drinking alcohol, driving or operating heavy machinery while taking narcotics or muscle relaxants. Patient discharged per ambulatory mode with self as responsible alliance party. OM BIKE BUILDER * Evelyne Roque RN - 07/12/2023 2:11 AM CST Pt medicated per provider orders. Pt educated on intended effects and side effects of medication and verbalized understanding. Pt able to provide teach- back of education. OM BIKE BUILDER * Cesar Galvan MD - 07/12/2023 1:24 AM CST Chief Complaint Patient presents with ??? Cough ??? Chest Congestion 57-year-old female presenting with cough for 2 days, she is been having some posttussive emesis. Nomeasured fever. No chest pain. The only emesis she is having his posttussive she is not having nausea at baseline. Her has been sick. She states her [id number] medications have been vomited backup secondary to coughing so been ineffective. No current facility-administered medications for this encounter. Current Outpatient Medications Medication Sig Dispense Refill ??? albuterol 108 (90 Base) MCG/ACT Aerosol Solution take 2 Puffs by inhalation every 6 hours as needed for Wheezing. (Patient not taking: Reported on 06/04/2023) 8 g 0 ??? benzonatate (TESSALON) 100 MG Capsule Take 1 Capsule by mouth 3 times daily as needed for Coughfor up to 10 days. 30 Capsule 0 ??? busPIRone (BUSPAR) 5 MG Tablet Take 5 mg by mouth. ??? escitalopram (LEXAPRO) 10 MG Tablet Take 10 mg by mouth daily. ??? HYDROcodone-acetaminophen (NORCO) 5-325 MG Tablet Take 1 Tablet by mouth every 4 hours as needed for Moderate or more severe pain. 12 Tablet 0 ??? levothyroxine (SYNTHROID) 50 MCG Tablet Take 50 mcg by mouth daily. ??? LORazepam (ATIVAN) 1 MG Tablet Take 0.5 Tabs by mouth every 8 hours as needed for Anxiety. (Patient not taking: Reported on 06/04/2023) 15 Tab 0 ??? naloxone HCl (Narcan) 4 MG/0.1ML Liquid 1 Wray by Nasal route as needed (opioid overdose). administer for symptoms of overdose (severe sleepiness, breathing problems, not responsive). Call 911. May use additional dose to repeat 1 spray intranasally in 2-3 minutes if needed. (Patient not taking: Reported on 06/04/2023) 2 Each 0 ??? naproxen (NAPROSYN) 500 MG Tablet Take 1 Tablet by mouth 2 times daily as needed for Moderate or more severe pain. (Patient not taking: Reported on 06/04/2023) 20 Tablet 0 ??? ondansetron (ZOFRAN) 4 MG Tablet Take 1-2 Tablets by mouth every 8 hours as needed for Nausea -1st line. 10 Tablet 0 ??? ondansetron (ZOFRAN) 4 MG Tablet Take 1-2 Tablets by mouth every 8 hours as needed for Nausea -1st line. (Patient not taking: Reported on 06/04/2023) 10 Tablet 0 No Known Allergies Past Medical History Positives Diagnosis Date ??? Depression ??? Thyroid disease Past Surgical History: Procedure Laterality Date ??? THYROID SURGERY Social History Socioeconomic History ??? Marital status: Spouse name: Not on file ??? Number of children: Not on file ??? Years of education: Not on file ??? Highest education level: Not on file Occupational History ??? Not on file Tobacco Use ??? Smoking status: Never ??? Smokeless tobacco: Never Vaping Use ??? Vaping Use: Never used Substance and Sexual Activity ??? Alcohol use: Yes Comment: rarely ??? Drug use: No ??? Sexual activity: Not on file Other Topics Concern ??? Not on file Social History Narrative ??? Not on file BP 141/82 Pulse 82 Temp 97.8 ??F (36.6 ??C) (Tympanic) Resp 18 Ht 5' 1 (1.549 m) Wt 231 lb 4.2 oz (104.9 kg) SpO2 99% BMI 43.70 kg/m?? Review of Systems Constitutional: Positive for chills and fever. Negative for activity change. HENT: Positive for congestion, rhinorrhea and sore throat. Respiratory: Positive for cough. Negative for shortness of breath, wheezing and stridor. Gastrointestinal: Positive for vomiting. Negative for abdominal pain, diarrhea and nausea. All other systems reviewed and are negative. Physical Exam Vitals and nursing note reviewed. Constitutional: Appearance: She is obese. HENT: Head: Normocephalic and atraumatic. Mouth/Throat: Mouth: Mucous membranes are moist. Eyes: Extraocular Movements: Extraocular movements intact. Conjunctiva/sclera: Conjunctivae normal. Cardiovascular: Rate and Rhythm: Normal rate and regular rhythm. Pulmonary: Effort: Pulmonary effort is normal. No respiratory distress. Breath sounds: No stridor. No wheezing or rhonchi. Comments: Some paroxysmal coughing with deep inspiration Abdominal: General: Abdomen is flat. Palpations: Abdomen is soft. Musculoskeletal: General: Normal range of motion. Cervical back: Normal range of motion. Skin: General: Skin is warm and dry. Capillary Refill: Capillary refill takes less than 2 seconds. Neurological: General: No focal deficit present. Mental Status: She is alert and oriented to person, place, and time. Psychiatric: Behavior: Behavior normal. Procedures Recent Results (from the past 24 hour(s)) OH-COV-2 Flu RSV - (Quad PCR) Specimen: Nasal; Swab Result Value Ref Range FLU A Negative Negative FLU B Negative Negative RESP SYNC VIRUS Negative Negative, Invalid SARSCOV2 NOT DETECTED (Reference Range for this test is Not Detected) Imaging Results XR CHEST 2 VIEWS (In process) No acute disease Medical Decision Making 57-year-old female here with cough malaise subjective fevers posttussive emesis, will check for COVID influenza and RSV, chest x-ray to ensure no pneumonia. Symptomatic treatment otherwise. Amount and/or Complexity of Data Reviewed Labs: ordered. Radiology: ordered and independent interpretation performed. Details: No acute infiltrate on chest x-ray 2:47 AM CUSTOM BIKE BUILDER Patient's screenings and negative for COVID RSV or influenza, her chest x-ray does not have any infiltrate on it, will be treating her symptomatically and she can follow-up with her PCP as needed if she is failing to improve or has further concerns. Clinical Impression 1. Viral URI 2. Cough Disposition: Discharge OM BIKE BUILDER * Allan Jones RN - 07/12/2023 1:17 AM CST Pt to ER room 2 w/c/o chest congestion, sinus congestion, and sinus drainage starting 2 days ago. Pt states that her dr gave her cetrizine for condition. Pt states that she throw up after coughing excessively. Pt alert and oriented x 4. OM BIKE BUILDER documented in this encounter Plan of Treatment Not on file documented as of this encounter Procedures Procedure Name Priority Date/Time Associated Diagnosis Comments XR CHEST 2 VIEWS STAT 07/12/2023 1:54 AM CUSTOM BIKE BUILDER RSV,SARS-COV-2,INFL UENZA A&B BY PCR STAT 07/12/2023 1:40 AM CUSTOM BIKE BUILDER documented in this encounter Results * XR CHEST 2 VIEWS (07/12/2023 1:54 AM CUSTOM BIKE BUILDER) Anatomical Region Laterality Modality Chest N/A Digital Radiogra phy 07/12/2023 2:54 AM CUSTOM BIKE BUILDER Impressions 07/12/2023 2:56 AM CUSTOM BIKE BUILDER IMPRESSION: ?? No acute cardiopulmonary abnormality. Narrative 07/12/2023 2:56 AM CUSTOM BIKE BUILDER EXAM DESCRIPTION: ?? XR CHEST 2 VIEWS REASON FOR STUDY: ?? cough; Pt to ER room 2 w/c/o chest congestion, sinus congestion, and sinus drainage starting 2 days ago. Pt states that her dr gave her cetrizine for condition. Pt states that she throw up after coughing excessively ?? TECHNIQUE: ?? Frontal ??and lateral radiographic views of the chest acquired. COMPARISON: 05/23/2022 FINDINGS: LUNGS/PLEURA: ?? No focal consolidation or pneumothorax. No pleural effusion. HEART/MEDIASTINUM: ?? Heart size is normal. Normal mediastinal and hilar contours. HARDWARE/LINES/TUBES: ?? None. BONES: ?? No acute findings. OTHER: ?? No other significant finding. THIS IS AN ELECTRONICALLY VERIFIED FINAL REPORT 07/12/2023 2:54 AM - Electronically signed by ??Jourdan Aparicio M.D. RW: RADHA D: ??07/12/2023 2:54 AM T: ??07/12/2023 2:54 AM Report ID: [id number] Reading Location: ??[id number] Procedure Note Jourdan Aparicio MD - 07/12/2023 EXAM DESCRIPTION: XR CHEST 2 VIEWS REASON FOR STUDY: cough; Pt to ER room 2 w/c/o chest congestion, sinus congestion, and sinus drainage starting 2 days ago. Pt states that her dr gave her cetrizine for condition. Pt states that she throw up after coughing excessively TECHNIQUE: Frontal and lateral radiographic views of the chest acquired. COMPARISON: 05/23/2022 FINDINGS: LUNGS/PLEURA: No focal consolidation or pneumothorax. No pleural effusion. HEART/MEDIASTINUM: Heart size is normal. Normal mediastinal and hilar contours. HARDWARE/LINES/TUBES: None. BONES: No acute findings. OTHER: No other significant finding. THIS IS AN ELECTRONICALLY VERIFIED FINAL REPORT 07/12/2023 2:54 AM - Electronically signed by Jourdan Aparicio M.D. RW: RADHA Report ID: [id number] Reading Location: [id number] IMPRESSION: No acute cardiopulmonary abnormality. us Cesar Galvan MD IM DIAGNOSTIC ORDERAB LES Final Result * OH-COV-2 Flu RSV - (Quad PCR) (07/12/2023 1:40 AM CUSTOM BIKE BUILDER) FLU A Negative Negative 07/12/2023 2:28 AM CUSTOM BIKE BUILDER [facility] FLU B Negative Negative 07/12/2023 2:28 AM CUSTOM BIKE BUILDER [facility] RESP SYNC VIRUS Negative Negative, Invalid 07/12/2023 2:28 AM [facility] SARSCOV2 NOT DETECTED (Reference Range for this test is Not Detected) 07/12/2023 2:28 AM [facility] Comment:This test was perfor med by a RT-PCR method. Swab NASOPHARYNGEAL SWAB / Unknown Non-Phlebotomy Collection / Unknown 07/12/2023 1:40 AM CUSTOM BIKE BUILDER 07/12/2023 1:47 AM CUSTOM BIKE BUILDER Narrative [facility] - 07/12/2023 2:28 AM CUSTOM BIKE BUILDER This test has not been FDA cleared or approved; the test has been authorized by FDA under an Emergency Use Authorization (EUA) for use by laboratories certified under the CLIA that meet the requirements to perform moderate, high or waived complexity tests. Authorized Fact Sheets about this test for providers and patients are available at: https://www.fda.gov/medical-devices/awkehgczv-scuozihhnh-quvmohe-devices/emergen -us e-authorizations Result [facility] Cesar Galvan MD MICROBIOLOGY - GENERAL ORDERABLES Final Result [facility] [address] [place] [address] documented in this encounter Visit Diagnoses Diagnosis Viral URI- Primary Acute upper respiratory infections of unspecified site Cough documented in this encounter Administered Medications Inactive Administered Medications - up to 3 most recent administrations Medication Order MAR Action Action Date Dose Rate Site benzonatate (TESSALON) capsule 200 mg 200 mg, Oral, ONCE, 1 dose, On 07/12/23 at 0230, Swallow capsule whole (do not break, chew, dissolve, cut, or crush). If capsules are chewed or dissolved in the mouth, oral mucosa anesthesia may occur and could lead to choking. If numbness or tingling of the tongue, mouth, throat, or face occurs, refrain from oral ingestion of food or liquid until numbness has resolved. Given 07/12/2023 2:10 AM CUSTOM BIKE BUILDER 200 mg ketorolac (TORADOL) injection 30 mg 30 mg, Intramuscular, ONCE, 1 dose, On Wed07/12/23 at 0230 Given 07/12/2023 2:10 AM CUSTOM BIKE BUILDER 30 mg Right Ventrogluteal Prochlorperazine Edisylate (COMPAZINE) injection 10 mg 10 mg, Intramuscular, ONCE, 1 dose, On Wed07/12/23 at 0230 Given 07/12/2023 2:10 AM CUSTOM BIKE BUILDER 10 mg Left Ventrogluteal documented in this encounter Active and Recently Administered Medications Times are shown in CUSTOM BIKE BUILDER. Scheduled Medication Order 07/10/2023 07/11/2023 07/12/2023 benzonatate (TESSALON) capsule 200 mg (COMPLETED) 200 mg, Oral, ONCE, 1 dose, On Wed07/12/23 at 0230, Swallow capsule whole (do not break, chew, dissolve, cut, or crush). If capsules are chewed or dissolved in the mouth, oral mucosa anesthesia may occur and could lead to choking. If numbness or tingling of the tongue, mouth, throat, or face occurs, refrain from oral ingestion of food or liquid until numbness has resolved. 0210 (Given - Provid er: Evelyne Roque RN) ketorolac (TORADOL) injection 30 mg (COMPLETED) 30 mg, Intramuscular, ONCE, 1 dose, On Wed07/12/23 at 0230 0210 (Given - Provid er: Evelyne Roque RN) Prochlorperazine Edisylate (COMPAZINE) injection 10 mg (COMPLETED) 10 mg, Intramuscular, ONCE, 1 dose, On Wed07/12/23 at 0230 0210 (Given - Provid er: Evelyne Roque RN) documented in this encounter Additional Health Concerns Infection Onset Date Last Indicated Resolved Time COVID - 19 07/12/2023 07/12/2023 07/22/2023 12:1 6 AM CUSTOM BIKE BUILDER documented as of this encounter Care Teams Prescription Clerk Lenses Relationship Specialty Start Date End Date Tomasz Martinez PAC [address] [place] [address] PCP - General Physician Associate Product Integrity Engineer 06/25/20 documented as of this encounter
--- OUTSIDE RECORDS SUMMARY | 2024-07-21 10:46 | XMS_ITS | Clinical Summary ---
Author Organization [facility] Address [address] [place] [address] Phone Care Team Providers Care Records Specialist Name Role Phone Tomasz Martinez Primary Care Provider [phone] Allergies No known active allergies Medications levothyroxine (SYNTHROID) 50 MCG Tablet Take 50 mcg by mouth daily. Active escitalopram (LEXAPRO) 10 MG Tablet Take 10 mg by mouth daily. Active LORazepam (ATIVAN) 1 MG Tablet Take 0.5 Tabs by mouth every 8 hours as needed for Anxiety. 15 Tab 0 Active Additional Information Patient not taking.Reported on 06/04/2023 naproxen (NAPROSYN) 500 MG Tablet Take 1 Tablet by mouth 2 times daily as needed for Moderate or more severe pain. 20 Tablet 1 Active Additional Information Patient not taking.Reported on 06/04/2023 albuterol 108 (90 Base) MCG/ACT Aerosol Solution take 2 Puffs by inhalation every 6 hours as needed for Wheezing. 8 g 1 Active Additional Information Patient not taking.Reported on 06/04/2023 ondansetron (ZOFRAN) 4 MG Tablet Take 1-2 Tablets by mouth every 8 hours as needed for Nausea - 1st line. 10 Tablet 2 Active Additional Information Patient not taking.Reported on 06/04/2023 naloxone HCl (Narcan) 4 MG/0.1ML Liquid 1 Secor by Nasal route as needed (opioid overdose). administer for symptoms of overdose (severe sleepiness, breathing problems, not responsive). Call 911. May use additional dose to repeat 1 spray intranasally in 2-3 minutes if needed. 2 Each 3 Active Additional Information Patient not taking.Reported on 06/04/2023 busPIRone (BUSPAR) 5 MG Tablet Take 5 mg by mouth. Active HYDROcodone-smitha taminophen (NORCO) 5-325 MG TabletIndicatio ns:Acute right-sided low back pain without sciatica Take 1 Tablet by mouth every 4 hours as needed for Moderate or more severe pain. 12 Tablet 3 Active ondansetron (ZOFRAN) 4 MG Tablet Take 1-2 Tablets by mouth every 8 hours as needed for Nausea - 1st line. 10 Tablet 3 Active omeprazole (PriLOSEC) 20 MG CAPSULE DELAYED RELEASEIndicati ons:Helicobacte r pylori Take 1 Capsule by mouth daily. Indications: Helicobacter pylori Bacteria 14 Capsule 4 Active traMADol (ULTRAM) 50 MG TabletIndicatio ns:Lower abdominal pain Take 1 Tablet by mouth every 8 hours as needed for Moderate or more severe pain. 12 Tablet 4 Active Active Problems No known active problems Encounters Date Type Department Care Team Description 04/30/2024 1:23 PM CDT - 04/30/2024 4:46 PM CDT Emergency [facility] Emergency [address] [place] [address] Robert Le, PAC Mobile cecum Discharge Disposition: Discharged to home or Selfcare 04/30/2024 Travel 04/28/2024 8:04 AM CDT - 04/28/2024 11:59 PM CDT Hospital [facility] Diagnostic Radiology [address] [place] [address] Piedad Jorge, MARGE, CIRCUS RIDER Discharge Disposition: Discharged to home or Selfcare 04/28/2024 Travel 04/21/2024 Transcribe Orders [facility] Central Scheduling [address] [place] [address] Piedad Jorge, LIFESTYLE CONSULTANT, CIRCUS RIDER 04/21/2024 Transcribe Orders [facility] Central Scheduling [address] [place] [address] Piedad Jorge, LIFESTYLE CONSULTANT, CIRCUS RIDER Dysphagia, unspecified type 04/21/2024 Travel from Last 3 Months Immunizations Immunization Administration Dates Next Due Covid-19, Mrna, Lnp-s, PF, 5 0 mcg/0.25 mL dose (Moderna) 07/22/2021 Social History Tobacco Use Types Packs/Day Years Used Date Smoking Tobacco: Never Smokeless Tobacco: Never Alcohol Use Standard Drinks/Week Comments Not Currently 0 (1 standard drink = 0.6 oz pur e alcohol) rarely Comments No Sex and Gender Information Value Date Recorded Sex Assigned at Not on file Legal Sex Female 8:09 PM CDT Gender Identity Not on file Sexual Orientation Not on file Last Filed Vital Signs Vital Sign Reading Time Taken Comments Blood Pressure 144/82 04/30/2024 4:45 PM CDT Pulse 88 04/30/2024 4:45 PM CDT Temperature 36.7 ??C (98.1 ??F) 04/30/2024 1:28 PM CD T Respiratory Rate 20 04/30/2024 4:45 PM CDT Oxygen Saturation 98% 04/30/2024 4:45 PM CDT Inhaled Oxygen Concentration - - Weight 108.5 kg (239 lb 3.2 oz) 04/30/2024 1:28 PM CDT Height 154.9 cm (5' 1 ) 04/30/2024 1:28 PM CDT Body Mass Index 45.2 04/30/2024 1:28 PM CDT Plan of Treatment Health Maintenance Due Date Last Done Comments Hepatitis C Virus (HCV) Screening 1965 TdaP Immunization 1965 Hepatitis B Immunization (1 of 3 - 19+ 3-dose series) 1984 Pap Smear 1986 Cervical Cancer Screening (CCS) 1995 HPV/Cotest 1995 Cologuard 2015 Immunochemical Fecal Occult Blood 2015 Mammogram 2015 Zoster Immunization (1 of 2) 2015 Influenza Immunization (#1) 2024 05/18/2023, 1 08/30/2021 SARS-COV-2 Immunization ( season) 2024 06/30/2022, 07/22/2021, 10/19/2020, Additional history exists Colonoscopy 02/03/2033 02/03/2023, 01/18/2018 Colorectal Cancer Screening 02/03/2033 Respiratory Syncytial Virus (RSV) Immunization (Adult) (1 - 1-dose 75+ series) 2040 02/03/2023, 01/18/2018 Meningococcal Immunization (ACWY) Aged Out No longer eligible based on patient's age to complete this topic Pneumococcal Immunization Combined Aged Out No longer eligible based on patient's age to complete this topic Rotavirus Immunization Aged Out No lo nger eligible based on patient's age to complete this topic Procedures Procedure Name Priority Date/Time Associated Diagnosis Comments CT ABDOMEN PELVIS W/ CONTRAST Stat with Interpretation 04/30/2024 3:30 PM CDT CBC WITH AUTO DIFFERENTIAL STAT 04/30/2024 1:45 PM CDT URINALYSIS REFLEX IF INDICATED BY ABNORMAL RESULTS STAT 04/30/2024 1:45 PM CDT LIPASE STAT 04/30/2024 1:45 PM CDT CMP (COMPREHENSIVE METABOLIC PANEL) STAT 04/30/2024 1:45 PM CDT COMPLETE BLOOD COUNT (CBC) WITH DIFF STAT 04/30/2024 1:45 PM CDT GOLD TOP TUBE STAT 04/30/2024 1:42 PM CDT BLUE TOP TUBE STAT 04/30/2024 1:42 PM CDT EXTRA TUBES STAT 04/30/2024 1:42 PM CDT XR ESOPHAGRAM Routine 04/28/2024 8:46 AM CDT Dysphagia, unspecified type HELICOBACTER PYLORI BREATH TEST, [place] [facility] Routine 04/21/2024 11:47 AM CDT Gastroesophageal reflux disease, unspecified whether esophagitis present from Last 3 Months Results * CT ABDOMEN PELVIS W/ CONTRAST (04/30/2024 3:30 PM CDT) Anatomical Region Laterality Modality Abdomen N/A Computed Tomogra phy 04/30/2024 4:18 PM CDT Impressions 04/30/2024 4:21 PM CDT IMPRESSION: 1. ??Dense column of contrast within short segmental bowel in the right lower quadrant/right hemipelvis, likely the cecum with extensive streak artifact limiting evaluation at that segment . Please note that the cecum was positioned in the right upper quadrant on prior CT on 04/06/2024. ??These findings could reflect mobile cecum. 2. ??No CT evidence of bowel obstruction or perforation. Narrative 04/30/2024 4:21 PM CDT EXAM DESCRIPTION: ?? CT ABDOMEN PELVIS W/ CONTRAST REASON FOR STUDY: ?? c/o lower quadrant abd pain x 2 weeks with intermittent nausea. pt has outpt esophogram 2 days agp showing small hiatal hernia. no hx of surgery ?? TECHNIQUE: CT scan of the abdomen and pelvis performed with intravenous and ??without ??oral contrast using helical scanning technique with dynamic intravenous contrast injection. Reconstructed coronal and sagittal MPR images reviewed. All images stored on PACS. Automated exposure control was used as a dose optimization technique for this examination. CONTRAST TYPE/DOSE: ?? 100mL of IOPAMIDOL 76 % IV SOLN ??injected COMPARISON: ?? 04/06/2024, 04/28/2024 FINDINGS: LOWER CHEST: ?? Mild scattered subsegmental atelectasis and mild lingular and right middle lobe scarring. ??No pleural effusion. ?? Mild cardiomegaly. ??Imaged portions of the esophagus are within normal limits. LIVER: ?? Normal size. ??Right hepatic lobe cyst near the dome measures 35 mm and is unchanged. ??There is a hypoattenuating lesion measuring 5 mm adjacent to the intrahepatic IVC which is too small to characterize and unchanged. ??The portal and hepatic veins are patent. GALLBLADDER: ?? Normal. BILE DUCTS: ?? No intrahepatic or extrahepatic ductal dilatation. SPLEEN: ?? Normal size. ??No focal lesions. PANCREAS: ?? No identified cystic or solid masses. No significant calcifications. No adjacent inflammation or peripancreatic fluid collections. Pancreatic duct not dilated. ?? ADRENALS: ?? Normal. KIDNEYS/URINARY TRACT: ?? No identified significant cystic or solid masses. No visualized stones. No hydronephrosis or hydroureter. Symmetric enhancement. ?Urinary bladder is unremarkable. GI: Tiny hiatal hernia. ?? The stomach is otherwise normal. ??There is dense column of contrast within short segmental bowel in the right lower quadrant/right hemipelvis, likely the cecum with extensive streak artifact limiting evaluation at that segment . ??Please note that the cecum was positioned in the right upper quadrant on prior CT on 04/06/2024. ??There is no bowel perforation or obstruction. PERITONEUM: ?? No ascites or free air. ?? No lymphadenopathy. RETROPERITONEUM: ?? No mass or adenopathy. REPRODUCTIVE: ?? An 11 mm hypoattenuating focus emanating from or adjacent to the right posterior margin of the uterus is not well evaluated on this examination due to extensive streak artifact from bowel intraluminal contrast. ??No definitive adnexal masses given limitations of the examination. VASCULATURE: ?? No abdominal aortic aneurysm. ?? The abdominal aorta and its branches are patent. MUSCULOSKELETAL: ?? No acute fractures or aggressive osseous lesions. THIS IS AN ELECTRONICALLY VERIFIED FINAL REPORT 04/30/2024 4:18 PM - Electronically signed by ??Sam Herron M.D. AT: AT D: ??04/30/2024 4:18 PM T: ??04/30/2024 4:18 PM Report ID: [id number] Reading Location: ??[id number] Procedure Note Sam Herron MD - 04/30/2024 EXAM DESCRIPTION: CT ABDOMEN PELVIS W/ CONTRAST REASON FOR STUDY: c/o lower quadrant abd pain x 2 weeks with intermittent nausea. pt has outpt esophogram 2 days agp showing small hiatal hernia. no hx of surgery TECHNIQUE: CT scan of the abdomen and pelvis performed with intravenous and without oral contrast using helical scanning technique with dynamic intravenous contrast injection. Reconstructed coronal and sagittal MPR images reviewed. All images stored on PACS. Automated exposure control was used as a dose optimization technique for this examination. CONTRAST TYPE/DOSE: 100mL of IOPAMIDOL 76 % IV SOLN injected COMPARISON: 04/06/2024, 04/28/2024 FINDINGS: LOWER CHEST: Mild scattered subsegmental atelectasis and mild lingular and right middle lobe scarring. No pleural effusion. Mild cardiomegaly. Imaged portions of the esophagus are within normal limits. LIVER: Normal size. Right hepatic lobe cyst near the dome measures 35 mm and is unchanged. There is a hypoattenuating lesion measuring 5 mm adjacent to the intrahepatic IVC which is too small to characterize and unchanged. The portal and hepatic veins are patent. GALLBLADDER: Normal. BILE DUCTS: No intrahepatic or extrahepatic ductal dilatation. SPLEEN: Normal size. No focal lesions. PANCREAS: No identified cystic or solid masses. No significant calcifications. No adjacent inflammation or peripancreatic fluid collections. Pancreatic duct not dilated. ADRENALS: Normal. KIDNEYS/URINARY TRACT: No identified significant cystic or solid masses. No visualized stones. No hydronephrosis or hydroureter. Symmetric enhancement. Urinary bladder is unremarkable. GI: Tiny hiatal hernia. The stomach is otherwise normal. There is dense column of contrast within short segmental bowel in the right lower quadrant/right hemipelvis, likely the cecum with extensive streak artifact limiting evaluation at that segment . Please note that the cecum was positioned in the right upper quadrant on prior CT on 04/06/2024. There is no bowel perforation or obstruction. PERITONEUM: No ascites or free air. No lymphadenopathy. RETROPERITONEUM: No mass or adenopathy. REPRODUCTIVE: An 11 mm hypoattenuating focus emanating from or adjacent to the right posterior margin of the uterus is not well evaluated on this examination due to extensive streak artifact from bowel intraluminal contrast. No definitive adnexal masses given limitations of the examination. VASCULATURE: No abdominal aortic aneurysm. The abdominal aorta and its branches are patent. MUSCULOSKELETAL: No acute fractures or aggressive osseous lesions. THIS IS AN ELECTRONICALLY VERIFIED FINAL REPORT 04/30/2024 4:18 PM - Electronically signed by Sam Herron M.D. AT: AT Report ID: [id number] Reading Location: [id number] IMPRESSION: 1. Dense column of contrast within short segmental bowel in the right lower quadrant/right hemipelvis, likely the cecum with extensive streak artifact limiting evaluation at that segment . Please note that the cecum was positioned in the right upper quadrant on prior CT on 04/06/2024. These findings could reflect mobile cecum. 2. No CT evidence of bowel obstruction or perforation. Robert Le PAC IMG CT ORDERABLES Fi nal Result * (ABNORMAL) Urinalysis w/ Reflex (04/30/2024 1:45 PM CDT) Pathologist [facility] SPECIFIC GRAVITY 1.020 1.003 - 1.030 04/30/2024 2:45 PM CDT [facility] URINE PH 6.0 5.0 - 9.0 04/30/2024 2:45 PM CDT [facility] WBC ESTERASE 25 /ul(A) Negative 04/30/2024 2:45 PM CDT [facility] NITRITE Negative Negative 04/30/2024 2:45 PM CDT [facility] PROTEIN, RANDOM URINE 15 mg/dL(A) Negative 04/30/2024 2:45 PM CDT [facility] URINE GLUCOSE, QUAL Negative Negative 04/30/2024 2:45 PM CDT [facility] URINE KETONES Negative Negative 04/30/2024 2:45 PM CDT [facility] UROBILINOGEN Normal Normal mg/dL 04/30/2024 2:45 PM CDT [facility] URINE BLOOD Negative Negative [place]/ul 04/30/2024 2:45 PM CDT [facility] URINALYSIS COLOR Yellow 04/30/20 24 2:45 PM CDT [facility] URINALYSIS CLARITY Slightly Cloudy 04/30/2024 2:45 PM CDT [facility] WBC (Urine) 0-5 Negative, 0-5 /hpf 04/30/2024 2:45 PM CDT [facility] URINE RBC'S 0-2 Negative, 0-2 /hpf 04/30/2024 2:45 PM CDT [facility] EPITHELIAL CELLS Small amount /lpf 2023 2:45 PM CDT [facility] BACTERIA, URINE Few(A) Negative /hpf 04/30/2024 2:45 PM CDT [facility] Urine URINE SPECIMEN / Unknown Non-Phlebotomy Collection / Unknown 04/30/2024 1:45 PM CDT 04/30/2024 1:55 PM CDT us Robert Le PAC URINE ORDERABLES Fin al Result [facility] [address] [place] [address] * (ABNORMAL) CBC with Auto Differential (04/30/2024 1:45 PM CDT) WBC 5.63 4.00 - 12.00 10(3)/mcL 04/30/2024 2:00 PM CDT [facility] RBC 4.29 3.80 - 5.30 10(6)/mcL 04/30/2024 2:00 PM CDT [facility] HEMOGLOBIN (HGB) 12.9 12.0 - 15.8 g/dL 04/30/2024 2:00 PM CDT [facility] HEMATOCRIT (HCT) 40.0 36.0 - 47.0 % 04/30/2024 2:00 PM CDT [facility] MCV 93.2 82.0 - 96.0 fL 04/30/2024 2:00 PM CDT [facility] MCH 30.1 26.0 - 34.0 pg 04/30/2024 2:00 PM CDT [facility] MCHC 32.3 31.0 - 36.0 g/dL 04/30/2024 2:00 PM CDT [facility] PLATELET COUNT 329 140 - 440 10(3)/mcL 04/30/2024 2:00 PM CDT [facility] RDW 13.1 11.8 - 15.5 % 04/30/2024 2:00 PM CDT [facility] MPV 10.0 9.7 - 12.4 fL 04/30/2024 2:00 PM CDT [facility] NEUTROPHILS 59.1 47.0 - 73.0 % 04/30/2024 2:00 PM CDT [facility] LYMPHOCYTES 27.2 18.0 - 42.0 % 04/30/2024 2:00 PM CDT [facility] MONOCYTES 7.5 4.0 - 12.0 % 04/30/2024 2:00 PM CDT [facility] EOSINOPHILS 5.7(H) 0.0 - 5.0 % 04/30/2024 2:00 PM CDT [facility] BASOPHILS 0.5 0.0 - 1.0 % 04/30/2024 2:00 PM CDT [facility] ABSOLUTE NEUTROPHILS 3.33 1.60 - 7.70 10(3)/[facility] 04/30/2024 2:00 PM CDT [facility] ABSOLUTE LYMPHOCYTES 1.53 1.30 - 3.20 10(3)/[facility] 04/30/2024 2:00 PM CDT [facility] ABSOLUTE MONOCYTES 0.42 0.20 - 1.00 10(3)/[facility] 04/30/2024 2:00 PM CDT [facility] ABSOLUTE EOSINOPHIL 0.32 0.00 - 0.40 10(3)/[facility] 04/30/2024 2:00 PM CDT [facility] ABSOLUTE BASOPHILS 0.03 0.00 - 0.10 10(3)/[facility] 04/30/2024 2:00 PM CDT [facility] NRBC PER 100 WBC 0 04/30/20 2:00 PM CDT [facility] Blood Venipuncture / Unknown 04/30/2024 1:45 PM CDT 04/30/2024 1:55 PM CDT us Robert Le PAC HEMATOLOGY ORDERABLE S Final Result [facility] [address] [place] [address] * Lipase (04/30/2024 1:45 PM CDT) LIPASE 15 8 - 78 U/L 04/30/2024 2:17 PM CDT [facility] Blood Venipuncture / Unknown 04/30/2024 1:45 PM CDT 04/30/2024 1:55 PM CDT Robert Alvarez Rey PAC CHEMISTRY ORDERABLES Final Result [facility] [address] [place] [address] * CMP (04/30/2024 1:45 PM CDT) Pathologist [facility] SODIUM 140 136 - 145 mmol/L 04/30/2024 2:17 PM CDT [facility] POTASSIUM 3.6 3.5 - 5.1 mmol/L 04/30/2024 2:17 PM CDT [facility] CHLORIDE 105 98 - 107 mmol/L 04/30/2024 2:17 PM CDT [facility] CO2, VENOUS 27 22 - 30 mmol/L 04/30/2024 2:17 PM CDT [facility] ANION GAP 11.6 <18.0 mmol/L 04/30/2024 2:17 PM CDT [facility] GLUCOSE 91 70 - 99 mg/dL 04/30/2024 2:17 PM CDT [facility] BUN 13 10 - 20 mg/dL 04/30/2024 2:17 PM CDT [facility] CREATININE, BLOOD 0.83 0.60 - 1.00 mg/dL 04/30/2024 2:17 PM CDT [facility] BUN/CREATININE RATIO 16 12 - 20 ratio 04/30/2024 2:17 PM CDT [facility] TOTAL PROTEIN 8.2 6.3 - 8.2 g/dL 04/30/2024 2:17 PM CDT [facility] ALBUMIN 4.3 3.5 - 5.0 g/dL 04/30/2024 2:17 PM CDT [facility] A/G RATIO 1.1 1.0 - 2.2 04/30/2024 2:17 PM CDT [facility] CALCIUM 9.9 8.7 - 10.5 mg/dL 04/30/2024 2:17 PM CDT [facility] T BILI 0.3 0.2 - 1.2 mg/dL 04/30/2024 2:17 PM CDT [facility] SGOT (AST) 26 5 - 34 U/L 04/30/2024 2:17 PM CDT [facility] SGPT (ALT) 35 0 - 55 U/L 04/30/2024 2:17 PM CDT [facility] ALKALINE PHOSPHATASE 78 40 - 150 U/L 04/30/2024 2:17 PM CDT [facility] GFR, ESTIMATED >60 >=60 04/30/2024 2:17 PM CDT [facility] Comment: Creatinine Clearance is the preferred criteria for selecting drug dose adjustments in renally impaired patients. ??The GFR is provided as additional pertinent clinical information. GFR is reported in mL/min/1.73 sq m. Calculation based on the Chronic Kidney Disease Epidemiology Collaboration (CKD- EPI) equation refit without adjustment for race. GFR, EST. >60 >=60 024 2:17 PM CDT [facility] GFR, EST. NONAFRICAN >60 >=60 04/30/2024 2:17 PM CDT [facility] Blood Venipuncture / Unknown 04/30/2024 1:45 PM CDT 04/30/2024 1:55 PM CDT us Robert Le PAC CHEMISTRY ORDERABLES Final Result [facility] [address] [place] [address] * Gold Top Tube (04/30/2024 1:42 PM CDT) Blood No Phlebotomy Charged / Unknown 04/30/2024 1:42 PM CDT 04/30/2024 1:57 PM CDT Robert Le PAC CHEMISTRY ORDERABLES Final Result Performing Organization Address [facility] Co de Phone Number [facility] [address] [place] [address] * Blue Top Tube (04/30/2024 1:42 PM CDT) Blood No Phlebotomy Charged / Unknown 04/30/2024 1:42 PM CDT 04/30/2024 1:57 PM CDT Robert Le PAC HEMATOLOGY ORDERABLE S Final Result Performing Organization Address [facility] Phone [facility] [address] [place] [address] * XR ESOPHAGRAM (04/28/2024 8:46 AM CDT) Anatomical Region Laterality Modality GI, Abdomen N/A Digital Radiogra phy 04/28/2024 2:34 PM CDT Impressions 04/28/2024 2:36 PM CDT IMPRESSION: ?? 1. ?? No significant stricture is seen. ??Tiny sliding hiatal hernia. ?? Follow-up upper endoscopy is recommended for further evaluation. Narrative 04/28/2024 2:36 PM CDT EXAM DESCRIPTION: ?? XR ESOPHAGRAM REASON FOR STUDY: ??pt c/o of stomach pain, heartburn, cramping beginning 2 weeks ago worsening 1 week ago. Pt states solid foods have been getting stuck in throat for last 2 weeks. HX of partial thyroid removal. ??Denies vomitting and sob. ?? RADIATION DOSE: Dose: ??The fluoroscopy unit does not record dose for reporting purposes. ??The fluoroscopy time is 2.6 minute TECHNIQUE: Under fluoroscopic guidance, patient ingested effervescent granules followed by thick and thin barium. COMPARISON: ?? None FINDINGS: Swallowing function is grossly normal. ??Mucosal relief views demonstrate no gross abnormality. ??Minimal dysmotility is noted. ??No stricture or mass is seen. ??Tiny sliding hiatal hernia was seen. ??Visualized portions of the stomach are grossly normal. ?? No reflux was witnessed. ??At the end of the examination the patient was given a barium pill to swallow which passed freely into the stomach. THIS IS AN ELECTRONICALLY VERIFIED FINAL REPORT 04/28/2024 2:34 PM - Electronically signed by ??Jerzy Major M.D. AG: AG D: ??04/28/2024 2:34 PM T: ??04/28/2024 2:34 PM Report ID: [id number] Reading Location: ??[id number] Procedure Note Jerzy Major MD - 04/28/2024 EXAM DESCRIPTION: XR ESOPHAGRAM REASON FOR STUDY: pt c/o of stomach pain, heartburn, cramping beginning 2 weeks ago worsening 1 week ago. Pt states solid foods have been getting stuck in throat for last 2 weeks. HX of partial thyroid removal. Denies vomitting and sob. RADIATION DOSE: Dose: The fluoroscopy unit does not record dose for reporting purposes. The fluoroscopy time is 2.6 minute TECHNIQUE: Under fluoroscopic guidance, patient ingested effervescent granules followed by thick and thin barium. COMPARISON: None FINDINGS: Swallowing function is grossly normal. Mucosal relief views demonstrate no gross abnormality. Minimal dysmotility is noted. No stricture or mass is seen. Tiny sliding hiatal hernia was seen. Visualized portions of the stomach are grossly normal. No reflux was witnessed. At the end of the examination the patient was given a barium pill to swallow which passed freely into the stomach. THIS IS AN ELECTRONICALLY VERIFIED FINAL REPORT 04/28/2024 2:34 PM - Electronically signed by Jerzy Major M.D. AG: JORGE Report ID: [id number] Reading Location: [id number] IMPRESSION: 1. No significant stricture is seen. Tiny sliding hiatal hernia. Follow-up upper endoscopy is recommended for further evaluation. us Piedad Jorge APRN, CNP IMG FLUOROSCOPY ORDERAB LES Final Result * (ABNORMAL) HELICOBACTER PYLORI BREATH TEST, [place] [facility] (04/21/2024 11:47 AM CDT) H. PYLORI C UREA BREATH TEST Positive( A) Negative 04/24/2024 10:26 AM CDT [facility] [employer] Comment: Result indicates the presence of active Helicobacter pylori infection. Test Performed by: [facility] [address] [place] [address] Engineer Systems: Margarita Benitez Ph.D.; CLIA# [id number] Breath Non-Phlebotomy Collection / Unknown 04/21/2024 11:47 AM CDT 04/21/2024 12:27 PM CDT us Piedad Jorge APRN, CNP LAB SEND OUTS Final R esult [facility] from Last [address] [facility] Care Teams Records Specialist Relationship Specialty Start Date End Date Tomasz Martinez [address] [place] [address] PCP - General Physician Sheet Metal Helper 06/25/20
--- OUTSIDE RECORDS SUMMARY | 2024-07-21 10:46 | XMS_ITS | Encounter Summary ---
Author Organization [employer] Care Team Providers Care Dramatic Teacher Name Role Phone Tomasz Martinez Primary Care Provider [phone] Encounter Details Date Type Department Care Team (Latest Contact Info) Description 07/03/2023 Travel Social History Tobacco Use Types Packs/Day Years Used Date Smoking Tobacco: Never Smokeless Tobacco: Never Alcohol Use Standard Drinks/Week Comments Yes 0 (1 standard drink = 0.6 oz pur e alcohol) rarely Comments No Sex and Gender Information Value Date Recorded Sex Assigned at Not on file Legal Sex Female 8:09 PM CDT Gender Identity Not on file Sexual Orientation Not on file COVID-19 Exposure Response Date Recorded In the last 10 days, have yo u been in contact with someone who was confirmed or suspected to have Coronavirus/COVID-19? No / Unsure 06/04/2023 8:05 AM CDT documented as of this encounter Plan of Treatment Not on file documented as of this encounter Visit Diagnoses Not on filedocumented in this encounter Care Teams Dramatic Teacher Relationship Specialty Start Date End Date Tomasz Martinez [address] [place] [address] PCP - General Physician Manager Athletics 06/25/20 documented as of this encounter
--- OUTSIDE RECORDS SUMMARY | 2024-07-21 10:46 | XMS_ITS | Encounter Summary ---
Author Organization [facility] Address [address] [place] [address] Phone Care Team Providers Care Partner Integration Planner Name Role Phone Tomasz Martinez Primary Care Provider [phone] Encounter Details Date Type Department Care Team (Late st Contact Info) Description 07/06/2023 [facility] Ad[facility] [address] [place] [address] Tomasz Martinez [address] [place] [address] Lumbar radiculopathy (Primary Dx) Social History Tobacco Use Types Packs/Day Years [...] on file documented as of this encounter Plan of Treatment Not on file documented as of this encounter Visit Diagnoses Diagnosis Lumbar radiculopathy- Primary Thoracic or lumbosacral neuritis or radiculitis, unspecified documented in this encounter Care Teams Partner Integration Planner Relationship Specialty Start Date End Date Tomasz Martinez [address] [place] [address] PCP - General Physician Physician Liaison 06/25/20 documented as of this encounter
--- OUTSIDE RECORDS SUMMARY | 2024-07-21 10:46 | XMS_ITS | Encounter Summary ---
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
--- OUTSIDE RECORDS SUMMARY | 2024-07-21 10:46 | XMS_ITS | Encounter Summary ---
Author Organization [facility] Address [address] [place] [address] Phone Care Team Providers Care Studio Engineer Name Role Phone Tomasz Martinez Primary Care Provider Reason for Visit * Reason Comments Flank Pain Encounter Details Date Type Department Care Team ([facility] st Contact Info) Description 04/06/2024 6:24 AM CDT - 04/06/2024 9:34 AM CDT Emergency [facility] Emergency [address] [place] [address] Cesar Galvan MD [address] [place] [address] Left flank pain Discharge Disposition: Discharged to home or Selfcare [...] Sign Reading Time Taken Comments Blood Pressure 132/85 04/06/2024 9:30 AM CDT Pulse 78 04/06/2024 9:30 AM CDT Temperature 35.7 ??C (96.3 ??F) 04/06/2024 6:22 AM CD T Respiratory Rate 14 04/06/2024 7:30 AM CDT Oxygen Saturation 100% 04/06/2024 9:30 AM CDT Inhaled Oxygen Concentration - - Weight 111.1 kg (245 lb) 04/06/2024 6:22 AM CDT Height 154.9 cm (5' 1 ) 04/06/2024 6:22 AM CDT Body Mass Index 46.29 04/06/2024 6:22 AM CDT documented in this encounter Medications at Time [...] naloxone HCl (Narcan) 4 MG/0.1ML Liquid 1 [place] by Nasal route as needed (opioid overdose). [...] Nausea - 1st line. 10 Tablet 05/23/2022 HYDROcodone-acet aminophen (NORCO) 5-325 MG TabletIndication s:Left flank pain Take 1-2 Tablets by mouth every 4 hours as needed for Moderate or more severe pain for up to 5 days. 10 Tablet 04/06/2024 4 ketorolac (TORADOL) 10 MG Tablet Take 1 Tablet by mouth every 6 hours as needed for Moderate or more severe pain for up to 5 days. 20 Tablet 04/06/2024 4 ondansetron (ZOFRAN) 4 MG Tablet Take 1-2 Tablets by mouth every 8 hours as needed for Nausea - 1st line for up to 5 days. 15 Tablet 04/06/2024 4 documented as of this encounter ED Notes * Mirlande Coleman RN - 04/06/2024 9:33 AM CDT Patient discharged. Discharge instructions and patient educational material reviewed with patient; questions and concerns addressed; patient verbalizes understanding, using teach back. Patient was given 3 prescriptions. Patient was informed no drinking alcohol, driving or operating heavy machinery while taking narcotics or muscle relaxants. Patient discharged ambulatory with steady gait to exit with no distress noted. SL D/C'ed with Emmett cath intact. * Mirlande Coleman RN - 04/06/2024 9:[address] Galvan at bedside to discuss test results and plan of care * Mirlande Coleman RN - 04/06/2024 9:11 AM CDT Pt medicated per provider orders. Pt educated on intended effects and side effects of medication and verbalized understanding, able to provide teach back of education. * Mirlande Coleman RN - 04/06/2024 8:59 AM CDT Patient reports increased pain. Dr. Galvan notified. * Mirlande Coleman RN - 04/06/2024 8:51 AM CDT Patient is resting in room with call light at bedside. Patient informed about wait time and verbalizes understanding. Patient denies needs at this time and verbalizes understanding that RN will complete hourly rounding. * Mirlande Coleman RN - 04/06/2024 8:50 AM CDT Patient is resting in room with call light at bedside. Patient informed about wait time and verbalizes understanding. Patient denies needs at this time and verbalizes understanding that RN will complete hourly rounding. * Mirlande Coleman RN - 04/06/2024 8:34 AM CDT Report received from ELIZABETH Garcia * Radha Rodrigez RN - 04/06/2024 8:28 AM CDT Patient is in CT at this time. * Radha Rodrigez RN - 04/06/2024 7:22 AM CDT Pt medicated per provider orders. Pt educated on intended effects and side effects of medication and verbalized understanding, able to provide teach back of education. * Cesar Galvan MD - 04/06/2024 6:29 AM CDT Chief Complaint Patient presents with Flank Pain 58-year-old female presenting to the emergency department with left flank pain onset this morning upon awakening. She has never had anything like this before, it is exacerbated by movement, she has no alleviating conditions, denies fever, she was nauseated without vomiting, denies dysuria hematuriaurinary discoloration. She has no history ureteral calculus her renal colic. She does not have chest pain or shortness of breath. She does not recall any injury or inciting event. She was in her usual state of health yesterday. No current facility-administered medications for this encounter. Current Outpatient Medications Medication Sig Dispense Refill albuterol 108 (90 Base) MCG/ACT Aerosol Solution take 2 Puffs by inhalation every 6 hours as neededfor Wheezing. (Patient not taking: Reported on 06/04/2023) 8 g 0 busPIRone (BUSPAR) 5 MG Tablet Take 5 mg by mouth. escitalopram (LEXAPRO) 10 MG Tablet Take 10 mg by mouth daily. HYDROcodone-acetaminophen (NORCO) 5-325 MG Tablet Take 1-2 Tablets by mouth every 4 hours as neededfor Moderate or more severe pain for up to 5 days. 10 Tablet 0 HYDROcodone-acetaminophen (NORCO) 5-325 MG Tablet Take 1 Tablet by mouth every 4 hours as needed for Moderate or more severe pain. 12 Tablet 0 ketorolac (TORADOL) 10 MG Tablet Take 1 Tablet by mouth every 6 hours as needed for Moderate or more severe pain for up to 5 days. 20 Tablet 0 levothyroxine (SYNTHROID) 50 MCG Tablet Take 50 mcg by mouth daily. LORazepam (ATIVAN) 1 MG Tablet Take 0.5 Tabs by mouth every 8 hours as needed for Anxiety. (Patientnot taking: Reported on 06/04/2023) 15 Tab 0 naloxone HCl (Narcan) 4 MG/0.1ML Liquid 1 [place] by Nasal route as needed (opioid overdose). administer for symptoms of overdose (severe sleepiness, breathing problems, not responsive). Call 911. May use additional dose to repeat 1 spray intranasally in 2-3 minutes if needed. (Patient not taking: Reported on 06/04/2023) 2 Each 0 naproxen (NAPROSYN) 500 MG Tablet Take 1 Tablet by mouth 2 times daily as needed for Moderate or more severe pain. (Patient not taking: Reported on 06/04/2023) 20 Tablet 0 ondansetron (ZOFRAN) 4 MG Tablet Take 1-2 Tablets by mouth every 8 hours as needed for Nausea - 1stline for up to 5 days. 15 Tablet 0 ondansetron (ZOFRAN) 4 MG Tablet Take 1-2 Tablets by mouth every 8 hours as needed for Nausea - 1stline. 10 Tablet 0 ondansetron (ZOFRAN) 4 MG Tablet Take 1-2 Tablets by mouth every 8 hours as needed for Nausea - 1stline. (Patient not taking: Reported on 06/04/2023) 10 Tablet 0 No Known Allergies Past Medical History Positives Diagnosis Date Depression Thyroid disease Past Surgical History: Procedure Laterality Date THYROID SURGERY Social History Socioeconomic History Marital status: Spouse name: Not on file Number of children: Not on file Years of education: Not on file Highest education level: Not on file Occupational History Not on file Tobacco Use Smoking status: Never Smokeless tobacco: Never Vaping Use Vaping status: Never Used Substance and Sexual Activity Alcohol use: Yes Comment: rarely Drug use: No Sexual activity: Not on file Other Topics Concern Not on file Social History Narrative Not on file Social Determinants of Health Financial Resource Needs: Not on file Food Insecurity Needs: Not on file Transportation Needs: Not on file Physical Activity: Not on file Stress: Not on file Social Integration: Not on file Intimate Partner Violence: Not on file Housing Stability: Not on file BP 135/83 Pulse 59 Temp (!) 96.3 ??F (35.7 ??C) (Tympanic) Resp 14 Ht 5' 1 (1.549 m) Wt 245 lb (111.1 kg) SpO2 100% BMI 46.29 kg/m?? Review of Systems Constitutional: Negative for activity change, chills and fever. Respiratory: Negative for shortness of breath, wheezing and stridor. Gastrointestinal: Negative for abdominal pain, diarrhea and nausea. Genitourinary: Positive for flank pain. All other systems reviewed and are negative. Physical Exam Vitals and nursing note reviewed. Constitutional: General: She is in acute distress. Appearance: She is obese. HENT: Head: Normocephalic and atraumatic. Mouth/Throat: Mouth: Mucous membranes are moist. Eyes: Extraocular Movements: Extraocular movements intact. Conjunctiva/sclera: Conjunctivae normal. Cardiovascular: Rate and Rhythm: Normal rate and regular rhythm. Pulmonary: Effort: Pulmonary effort is normal. Abdominal: General: Abdomen is flat. Palpations: Abdomen is soft. Tenderness: There is left CVA tenderness. Musculoskeletal: General: Normal range of motion. Cervical back: Normal range of motion. Skin: General: Skin is warm and dry. Capillary Refill: Capillary refill takes less than 2 seconds. Neurological: General: No focal deficit present. Mental Status: She is alert and oriented to person, place, and time. Psychiatric: Behavior: Behavior normal. Procedures Recent Results (from the past 24 hour(s)) CMP Result Value Ref Range SODIUM 139 136 - 145 mmol/L POTASSIUM 4.2 3.5 - 5.1 mmol/L CHLORIDE 105 98 - 107 mmol/L CO2, VENOUS 24 22 - 30 mmol/L ANION GAP 14.2 <18.0 mmol/L GLUCOSE 103 (H) 70 - 99 mg/dL BUN 10 10 - 20 mg/dL CREATININE, BLOOD 0.72 0.60 - 1.00 mg/dL BUN/CREATININE RATIO 14 12 - 20 ratio TOTAL PROTEIN 7.6 6.3 - 8.2 g/dL ALBUMIN 3.8 3.5 - 5.0 g/dL A/G RATIO 1.0 1.0 - 2.2 CALCIUM 9.3 8.7 - 10.5 mg/dL T BILI 0.3 0.2 - 1.2 mg/dL SGOT (AST) 22 5 - 34 U/L SGPT (ALT) 17 0 - 55 U/L ALKALINE PHOSPHATASE 79 40 - 150 U/L GFR, ESTIMATED >60 >=60 GFR, EST. >60 >=60 GFR, EST. NONAFRICAN >60 >=60 CBC with Auto Differential Result Value Ref Range WBC 4.35 4.00 - 12.00 10(3)/mcL RBC 3.97 3.80 - 5.30 10(6)/mcL HEMOGLOBIN (HGB) 12.1 12.0 - 15.8 g/dL HEMATOCRIT (HCT) 38.2 36.0 - 47.0 % MCV 96.2 (H) 82.0 - 96.0 fL MCH 30.5 26.0 - 34.0 pg MCHC 31.7 31.0 - 36.0 g/dL PLATELET COUNT 283 140 - 440 10(3)/mcL RDW 13.3 11.8 - 15.5 % MPV 10.0 9.7 - 12.4 fL NEUTROPHILS 58.4 47.0 - 73.0 % LYMPHOCYTES 25.3 18.0 - 42.0 % MONOCYTES 9.2 4.0 - 12.0 % EOSINOPHILS 6.4 (H) 0.0 - 5.0 % BASOPHILS 0.7 0.0 - 1.0 % ABSOLUTE NEUTROPHILS 2.54 1.60 - 7.70 10(3)/mcL ABSOLUTE LYMPHOCYTES 1.10 (L) 1.30 - 3.20 10(3)/mcL ABSOLUTE MONOCYTES 0.40 0.20 - 1.00 10(3)/mcL ABSOLUTE EOSINOPHIL 0.28 0.00 - 0.40 10(3)/mcL ABSOLUTE BASOPHILS 0.03 0.00 - 0.10 10(3)/mcL NRBC PER 100 WBC 0 Urinalysis w/ Reflex Result Value Ref Range SPECIFIC GRAVITY 1.020 1.003 - 1.030 URINE PH 6.0 5.0 - 9.0 WBC ESTERASE Negative Negative NITRITE Negative Negative PROTEIN, RANDOM URINE 15 mg/dL (A) Negative URINE GLUCOSE, QUAL Negative Negative URINE KETONES Negative Negative UROBILINOGEN Normal Normal mg/dL URINE BLOOD Negative Negative eden/ul URINALYSIS COLOR Yellow URINALYSIS CLARITY Clear Imaging Results CT RENAL STONE STUDY (ABDOMEN AND PELVIS W/O CONTRAST) (Final result) Result time 04/06/24 08:57:46 Final result by Carl Espinosa MD (04/06/24 08:57:46) Impression: IMPRESSION: Trace asymmetrical left perinephric fat stranding likely represent sequela of a recently passed left kidney calculus or possible ascending infection. No hydronephrosis or hydroureter. No renal calculi or obstructive uropathy is identified. 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 Optional CT abdomen and pelvis with contrast in 1 year could be considered to ensure stability. Narrative: EXAM DESCRIPTION: CT RENAL STONE STUDY (ABDOMEN AND PELVIS W/O CONTRAST) REASON FOR STUDY: Left flank pain upon waking up this morning, non radiating. TECHNIQUE: CT scan of the abdomen and pelvis performed without intravenous and without oral contrast using helical scanning technique. Reconstructed coronal and sagittal MPR images reviewed. All images stored on PACS. Automated exposure control was used as a dose optimization technique for this examination. COMPARISON: Radiographs 05/23/2022 FINDINGS: The sensitivity for detection of visceral lesions is diminished without the use of intravenous contrast. LOWER CHEST: No significant pulmonary abnormalities. No effusion. Subsegmental atelectasis. Mild cardiomegaly. LIVER: 3.0 cm cyst in the right hepatic lobe. Otherwise unremarkable. GALLBLADDER: No stones identified. No wall thickening or inflammatory changes. BILE DUCTS: No intrahepatic or extrahepatic ductal dilatation. SPLEEN: Normal size. No focal lesions. PANCREAS: No identified cystic or solid masses. No significant calcifications. No adjacent inflammation or peripancreatic fluid collections. Pancreatic duct not dilated. ADRENALS: Normal. KIDNEYS/URINARY TRACT: There is trace asymmetrical left perinephric fat stranding. No kidney calculi are identified. There is no hydronephrosis or hydroureter. A few phleboliths in the pelvis are noted but there is no definitive ureter calculus. Urinary bladder is partially decompressed but unremarkable. GI: Submucosal fat deposition in the stomach and colon is nonspecific but can be seen in the setting of metabolic syndrome obesity. There is no evidence of small-bowel obstruction. There is a tiny submucosal lipoma of the descending duodenum. The appendix is normal. No significant diverticulosis is identified. PERITONEUM: There is mild regan mesentery appearance in the left upper quadrant in the midline and left of midline mesentery in the upper and lower quadrants. RETROPERITONEUM: No mass or adenopathy. REPRODUCTIVE: The uterus is present and retroflexed. There is a small exophytic focus projecting off the posterior aspect of the uterus which is nonspecific but statistically an exophytic fibroid. VASCULATURE: No abdominal aortic aneurysm. Left retroaortic renal vein. MUSCULOSKELETAL: There is mild height loss of the L1 superior endplate which is most likely due to a Schmorl's node. This could alternatively represent a mild chronic compression fracture. Multiple small Schmorl's nodes in the thoracic and lumbar spine. Moderate degenerative changes of the lumbar spine. OTHER: No other abnormality. THIS IS AN ELECTRONICALLY VERIFIED FINAL REPORT 04/06/2024 8:55 AM - Electronically signed by Carl Espinosa M.D. MM: MM Report ID: [id number] Reading Location: [id number] Medical Decision Making 58-year-old female presenting emergency department with left flank pain onset about awakening, pyelonephritis, ureterolithiasis or primary considerations, colitis or diverticulitis seem less likely given posterior location of pain, sudden onset, lack of diarrhea or hematochezia, will obtain basic labs, urinalysis, obtain CT scanning renal stone protocol to examined for renal calculi. Amount and/or Complexity of Data Reviewed Labs: ordered. Radiology: ordered and independent interpretation performed. Decision-making details documented in ED Course. Risk Prescription drug management. Parenteral controlled substances. Decision regarding hospitalization. Risk Details: Patient may have sequela on CT scan of recently passed stone but there is no active ureterolithiasis, there is no secondary or primary urinary infection, no other acute pathologic process identified, plan to treat symptomatically with PCP follow up in 2-3 days if failing to improve ornew or different symptoms arise Clinical Impression 1. Left flank pain Disposition: Discharge Attention patients/caregivers: Secondary to the medical cares act notes and test results are now immediately released to patients and caregivers. If you are the patient referenced in this documentation or a caregiver thereof and are reading this chart, please be aware that there is medical terminology, abbreviations, and methods of communication which are intended for medical professional interpretation only. If you have questions, please contact your primary care provider. If there are specific physician's or contact information referenced in this chart do not use it as it may be out of date. Certain laboratory values or radiologic studies may have findings that appear abnormal, these were reviewed by your physician and do not require further emergent or urgent medical attention. If you have further questions about any testing performed please contact your primary care provider for clarification or further discussion. * Tiffanie Roland RN - 04/06/2024 6:24 AM CDT Pt to ED with c/o left flank pain that she noticed when she woke up this morning. Denies pain radiating. Reports nausea without emesis. documented in this encounter Miscellaneous Notes * [employer] Patient Instructions - Cesar Galvan MD - 04/06/2024 9:24 AM CDT Images from the original note were not included. Patient Education Table of Contents Renal Colic To view videos and all your education online visit, [email or web address] or scan this QR code with your smartphone. Access to this content will in one year. Renal Colic Renal colic is pain that is caused by passing a kidney stone. The pain can be sharp and severe. It may be felt in your back, abdomen, side (flank), or groin. It can cause nausea. Renal colic can comeand go. Follow these instructions at home: Watch your condition for any changes. Medicines Take arpd-gie-acljnop and prescription medicines only as told by your health care provider. Ask your provider if the medicine prescribed to you: ? Requires you to avoid driving or using machinery. ? Can cause constipation. You may need to take these actions to prevent or treat constipation: ? Take mmea-rit-fbrbclf or prescription medicines. ? Eat foods that are high in fiber, such as beans, whole grains, and fresh fruits and vegetables. ? Limit foods that are high in fat and processed sugars, such as fried or sweet foods. Eating and drinking Drink enough fluid to keep your pee (urine) pale yellow. You may be told to drink at least 8?10 glasses of water each day. Follow instructions from your provider about what you may eat and drink. If told, change your diet. You may need to: ? Limit how much salt (sodium) you eat. You may need to eat less than 2 grams (2,000 mg) per day. ? Eat more fruits and vegetables. ? Limit how much animal protein you eat. This includes red meat, fish, poultry, and eggs. ? Avoid foods such as spinach, rhubarb, sweet potatoes, and nuts. These foods make kidney stones more likely to form. General instructions Collect pee samples as told by your provider. You may need to collect a pee sample after you pass the kidney stone. Strain your pee every time you pee (urinate), for as long as you are told. Use the strainer that your provider gives you. Do not throw out the kidney stone after you pass it. Keep the stone so it can be tested by your provider. Testing the makeup of your kidney stone may show why you got it and help prevent you from getting more in the future. Your provider may give you more instructions. Make sure you know what you can and cannot do. Contact a health care provider if: You have a fever or chills. Your pee smells bad or looks cloudy. You have pain or burning when you pee. You have blood in your pee. Get help right away if: The pain in your flank or groin suddenly gets worse. You become confused or do not know the time of day, where you are, or who you are (become disoriented). You feel like you may faint or you faint. This information is not intended to replace advice given to you by your health care provider. Make sure you discuss any questions you have with your health care provider. Document Released: 2006-04-28 Document Updated: 2023-08-06 Document Reviewed: 2023-04-14 [employer] Patient Education ? [address] [employer] * [employer] Patient Instructions - Cesar Galvan MD - 04/06/2024 9:23 AM CDT Images from the original note were not included. Patient Education Table of Contents Flank Pain, Adult To view videos and all your education online visit, [email or web address] or scan this QR code with your smartphone. Access to this content will in one year. Flank Pain, Adult Flank pain is pain that is located on the side of the body between the upper abdomen and the spine.This area is called the flank. The pain may occur over a short period of time (acute), or it may belong-term or recurring (chronic). It may be mild or severe. Flank pain can be caused by many things, including: Muscle soreness or injury. Kidney infection, kidney stones, or kidney disease. Stress. A disease of the spine (vertebral disk disease). A lung infection (pneumonia). Fluid around the lungs (pulmonary edema). A skin rash caused by the chickenpox virus (shingles). Tumors that affect the back of the abdomen. Gallbladder disease. Follow these instructions at home: Drink enough fluid to keep your urine pale yellow. Rest as told by your health care provider. Take osht-iyj-jydazwk and prescription medicines only as told by your health care provider. Keep a journal to track what has caused your flank pain and what has made it feel better. Keep all follow-up visits. This is important. Contact a health care provider if: Your pain is not controlled with medicine. You have new symptoms. Your pain gets worse. Your symptoms last longer than 2?3 days. You have trouble urinating or you are urinating very frequently. Get help right away if: You have trouble breathing or you are short of breath. Your abdomen hurts or it is swollen or red. You have nausea or vomiting. You feel faint, or you faint. You have blood in your urine. You have flank pain and a fever. These symptoms may represent a serious problem that is an emergency. Do not wait to see if the symptoms will go away. Get medical help right away. Call your local emergency services (911 in the [place] Do not drive yourself to the hospital. Summary Flank pain is pain that is located on the side of the body between the upper abdomen and the spine. The pain may occur over a short period of time (acute), or it may be long-term or recurring (chronic). It may be mild or severe. Flank pain can be caused by many things. Contact your health care provider if your symptoms get worse or last longer than 2?3 days. This information is not intended to replace advice given to you by your health care provider. Make sure you discuss any questions you have with your health care provider. Document Released: 2006-09-09 Document Updated: 2021-09-29 Document Reviewed: 2021-09-29 [employer] Patient Education ? 2023 [employer] documented in this encounter Plan of Treatment Not on file documented as of this encounter Procedures Procedure Name Priority Date/Time Associated Diagnosis Comments CT RENAL STONE STUDY (ABDOMEN AND PELVIS W/O CONTRAST) Stat with Interpretation 04/06/2024 8:32 AM CDT URINALYSIS REFLEX IF INDICATED BY ABNORMAL RESULTS STAT 04/06/2024 7:00 AM CDT EXTRA TUBES STAT 04/06/2024 6:46 AM CDT GOLD TOP TUBE STAT 04/06/2024 6:46 AM CDT BLUE TOP TUBE STAT 04/06/2024 6:46 AM CDT CBC WITH AUTO DIFFERENTIAL STAT 04/06/2024 6:46 AM CDT CMP (COMPREHENSIVE METABOLIC PANEL) STAT 04/06/2024 6:46 AM CDT COMPLETE BLOOD COUNT (CBC) WITH DIFF STAT 04/06/2024 6:46 AM CDT documented in this encounter Results * CT RENAL STONE STUDY (ABDOMEN AND PELVIS W/O CONTRAST) (04/06/2024 8:32 AM CDT) Anatomical Region Laterality Modality Abdomen N/A Computed Tomogra phy 04/06/2024 8:55 AM CDT Impressions 04/06/2024 8:57 AM CDT IMPRESSION: Trace asymmetrical left perinephric fat stranding likely represent sequela of a recently passed left kidney calculus or possible ascending infection. ??No hydronephrosis or hydroureter. ??No renal calculi or obstructive uropathy is identified. 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 ?? Optional CT abdomen and pelvis with contrast in 1 year could be considered to ensure stability. Narrative 04/06/2024 8:57 AM CDT EXAM DESCRIPTION: ?? CT RENAL STONE STUDY (ABDOMEN AND PELVIS W/O CONTRAST) REASON FOR STUDY: ?? Left flank pain upon waking up this morning, non radiating. ?? TECHNIQUE: CT scan of the abdomen and pelvis performed without intravenous and ??without ??oral contrast using helical scanning technique. Reconstructed coronal and sagittal MPR images reviewed. All images stored on PACS. Automated exposure control was used as a dose optimization technique for this examination. COMPARISON: Radiographs 05/23/2022 FINDINGS: The sensitivity for detection of visceral lesions is diminished without the use of intravenous contrast. LOWER CHEST: ?? No significant pulmonary abnormalities. No effusion. ?? Subsegmental atelectasis. ??Mild cardiomegaly. LIVER: ?? 3.0 cm cyst in the right hepatic lobe. ??Otherwise unremarkable. GALLBLADDER: ?? No stones identified. No wall thickening or inflammatory changes. BILE DUCTS: ?? No intrahepatic or extrahepatic ductal dilatation. SPLEEN: ?? Normal size. ??No focal lesions. PANCREAS: ?? No identified cystic or solid masses. ??No significant calcifications. No adjacent inflammation or peripancreatic fluid collections. Pancreatic duct not dilated. ADRENALS: ?? Normal. KIDNEYS/URINARY TRACT: ?? There is trace asymmetrical left perinephric fat stranding. ??No kidney calculi are identified. ??There is no hydronephrosis or hydroureter. ??A few phleboliths in the pelvis are noted but there is no definitive ureter calculus. ?? Urinary bladder is partially decompressed but unremarkable. GI: ?? Submucosal fat deposition in the stomach and colon is nonspecific but can be seen in the setting of metabolic syndrome obesity. ??There is no evidence of small-bowel obstruction. ??There is a tiny submucosal lipoma of the descending duodenum. ?? The appendix is normal. ??No significant diverticulosis is identified. PERITONEUM: ?? There is mild regan mesentery appearance in the left upper quadrant in the midline and left of midline mesentery in the upper and lower quadrants. RETROPERITONEUM: ?? No mass or adenopathy. REPRODUCTIVE: ?? The uterus is present and retroflexed. ??There is a small exophytic focus projecting off the posterior aspect of the uterus which is nonspecific but statistically an exophytic fibroid. VASCULATURE: ?? No abdominal aortic aneurysm. ?? Left retroaortic renal vein. MUSCULOSKELETAL: ?? There is mild height loss of the L1 superior endplate which is most likely due to a Schmorl's node. ??This could alternatively represent a mild chronic compression fracture. ?? Multiple small Schmorl's nodes in the thoracic and lumbar spine. ?? Moderate degenerative changes of the lumbar spine. OTHER: ?? No other abnormality. THIS IS AN ELECTRONICALLY VERIFIED FINAL REPORT 04/06/2024 8:55 AM - Electronically signed by ??Carl Espinosa M.D. MM: MM D: ??04/06/2024 8:54 AM T: ??04/06/2024 8:55 AM Report ID: [id number] Reading Location: ??[id number] Procedure Note Carl Espinosa MD - 04/06/2024 EXAM DESCRIPTION: CT RENAL STONE STUDY (ABDOMEN AND PELVIS W/O CONTRAST) REASON FOR STUDY: Left flank pain upon waking up this morning, non radiating. TECHNIQUE: CT scan of the abdomen and pelvis performed without intravenous and without oral contrast using helical scanning technique. Reconstructed coronal and sagittal MPR images reviewed. All images stored on PACS. Automated exposure control was used as a dose optimization technique for this examination. COMPARISON: Radiographs 05/23/2022 FINDINGS: The sensitivity for detection of visceral lesions is diminished without the use of intravenous contrast. LOWER CHEST: No significant pulmonary abnormalities. No effusion. Subsegmental atelectasis. Mild cardiomegaly. LIVER: 3.0 cm cyst in the right hepatic lobe. Otherwise unremarkable. GALLBLADDER: No stones identified. No wall thickening or inflammatory changes. BILE DUCTS: No intrahepatic or extrahepatic ductal dilatation. SPLEEN: Normal size. No focal lesions. PANCREAS: No identified cystic or solid masses. No significant calcifications. No adjacent inflammation or peripancreatic fluid collections. Pancreatic duct not dilated. ADRENALS: Normal. KIDNEYS/URINARY TRACT: There is trace asymmetrical left perinephric fat stranding. No kidney calculi are identified. There is no hydronephrosis or hydroureter. A few phleboliths in the pelvis are noted but there is no definitive ureter calculus. Urinary bladder is partially decompressed but unremarkable. GI: Submucosal fat deposition in the stomach and colon is nonspecific but can be seen in the setting of metabolic syndrome obesity. There is no evidence of small-bowel obstruction. There is a tiny submucosal lipoma of the descending duodenum. The appendix is normal. No significant diverticulosis is identified. PERITONEUM: There is mild regan mesentery appearance in the left upper quadrant in the midline and left of midline mesentery in the upper and lower quadrants. RETROPERITONEUM: No mass or adenopathy. REPRODUCTIVE: The uterus is present and retroflexed. There is a small exophytic focus projecting off the posterior aspect of the uterus which is nonspecific but statistically an exophytic fibroid. VASCULATURE: No abdominal aortic aneurysm. Left retroaortic renal vein. MUSCULOSKELETAL: There is mild height loss of the L1 superior endplate which is most likely due to a Schmorl's node. This could alternatively represent a mild chronic compression fracture. Multiple small Schmorl's nodes in the thoracic and lumbar spine. Moderate degenerative changes of the lumbar spine. OTHER: No other abnormality. THIS IS AN ELECTRONICALLY VERIFIED FINAL REPORT 04/06/2024 8:55 AM - Electronically signed by Carl Espinosa M.D. MM: MM Report ID: [id number] Reading Location: [id number] IMPRESSION: Trace asymmetrical left perinephric fat stranding likely represent sequela of a recently passed left kidney calculus or possible ascending infection. No hydronephrosis or hydroureter. No renal calculi or obstructive uropathy is identified. 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 Optional CT abdomen and pelvis with contrast in 1 year could be considered to ensure stability. us Cesar Galvan MD [facility] [place] ORDERABLES Phyllis l Result * (ABNORMAL) Urinalysis w/ Reflex (04/06/2024 7:00 AM CDT) SPECIFIC GRAVITY 1.020 1.003 - 1.030 04/06/2024 8:27 AM CDT [facility] URINE PH 6.0 5.0 - 9.0 04/06/2024 8:27 AM CDT [facility] WBC ESTERASE Negative Negative 04/06/2024 8:27 AM CDT [facility] NITRITE Negative Negative 04/06/2024 8:27 AM CDT [facility] PROTEIN, RANDOM URINE 15 mg/dL(A) Negative 04/06/2024 8:27 AM CDT [facility] URINE GLUCOSE, QUAL Negative Negative 04/06/2024 8:27 AM CDT [facility] URINE KETONES Negative Negative 04/06/2024 8:27 AM CDT [facility] UROBILINOGEN Normal Normal mg/dL 04/06/2024 8:27 AM CDT [facility] URINE BLOOD Negative Negative eden/ul 04/06/2024 8:27 AM CDT [facility] URINALYSIS COLOR Yellow 04/06/20 8:27 AM CDT [facility] URINALYSIS CLARITY Clear 04/06/2024 8:27 AM CDT [facility] Urine URINE SPECIMEN / Unknown Non-Phlebotomy Collection / Unknown 04/06/2024 7:00 AM CDT 04/06/2024 7:46 AM CDT us Cesar Galvan MD URINE ORDERABLES Final Result Performing Organization Address City/[facility]/ZIP Co de Phone Number [facility] [address] [place] [address] * Gold Top Tube (04/06/2024 6:46 AM CDT) Blood No Phlebotomy Charged / Unknown 04/06/2024 6:46 AM CDT 04/06/2024 7:34 AM CDT Cesar Galvan MD CHEMISTRY ORDERABLES F inal Result Performing Organization Address City/[facility]/ZIP Co de Phone Number [facility] [address] [place] [address] * Blue Top Tube (04/06/2024 6:46 AM CDT) Blood No Phlebotomy Charged / Unknown 04/06/2024 6:46 AM CDT 04/06/2024 7:34 AM CDT us Cesar Galvan MD HEMATOLOGY ORDERABLES Final Result Performing Organization Address City/[facility] Co de Phone Number [facility] [address] [place] [address] * (ABNORMAL) CBC with Auto Differential (04/06/2024 6:46 AM CDT) WBC 4.35 4.00 - 12.00 10(3)/mcL 04/06/2024 6:58 AM CDT [facility] RBC 3.97 3.80 - 5.30 10(6)/mcL 04/06/2024 6:58 AM CDT [facility] HEMOGLOBIN (HGB) 12.1 12.0 - 15.8 g/dL 04/06/2024 6:58 AM CDT [facility] HEMATOCRIT (HCT) 38.2 36.0 - 47.0 % 04/06/2024 6:58 AM CDT [facility] MCV 96.2(H) 82.0 - 96.0 fL 04/06/2024 6:58 AM CDT [facility] MCH 30.5 26.0 - 34.0 pg 04/06/2024 6:58 AM CDT [facility] MCHC 31.7 31.0 - 36.0 g/dL 04/06/2024 6:58 AM CDT [facility] PLATELET COUNT 283 140 - 440 10(3)/[facility] 04/06/2024 6:58 AM CDT [facility] RDW 13.3 11.8 - 15.5 % 04/06/2024 6:58 AM CDT [facility] MPV 10.0 9.7 - 12.4 fL 04/06/2024 6:58 AM CDT [facility] NEUTROPHILS 58.4 47.0 - 73.0 % 04/06/2024 6:58 AM CDT [facility] LYMPHOCYTES 25.3 18.0 - 42.0 % 04/06/2024 6:58 AM CDT [facility] MONOCYTES 9.2 4.0 - 12.0 % 04/06/2024 6:58 AM CDT [facility] EOSINOPHILS 6.4(H) 0.0 - 5.0 % 04/06/2024 6:58 AM CDT [facility] BASOPHILS 0.7 0.0 - 1.0 % 04/06/2024 6:58 AM CDT [facility] ABSOLUTE NEUTROPHILS 2.54 1.60 - 7.70 10(3)/[facility] 04/06/2024 6:58 AM CDT [facility] ABSOLUTE LYMPHOCYTES 1.10(L) 1.30 - 3.20 10(3)/[facility] 04/06/2024 6:58 AM CDT [facility] ABSOLUTE MONOCYTES 0.40 0.20 - 1.00 10(3)/[facility] 04/06/2024 6:58 AM CDT [facility] ABSOLUTE EOSINOPHIL 0.28 0.00 - 0.40 10(3)/[facility] 04/06/2024 6:58 AM CDT [facility] ABSOLUTE BASOPHILS 0.03 0.00 - 0.10 10(3)/[facility] 04/06/2024 6:58 AM CDT [facility] NRBC PER 100 WBC 0 04/06/20 24 6:58 AM CDT [facility] Blood Venipuncture / Unknown 04/06/2024 6:46 AM CDT 04/06/2024 6:52 AM CDT us Cesra Galvan MD HEMATOLOGY ORDERABLES Final Result [facility] [address] [place] [address] * (ABNORMAL) CMP (04/06/2024 6:46 AM CDT) SODIUM 139 136 - 145 mmol/L 04/06/2024 7:14 AM CDT [facility] POTASSIUM 4.2 3.5 - 5.1 mmol/L 04/06/2024 7:14 AM CDT [facility] CHLORIDE 105 98 - 107 mmol/L 04/06/2024 7:14 AM CDT [facility] CO2, VENOUS 24 22 - 30 mmol/L 04/06/2024 7:14 AM CDT [facility] ANION GAP 14.2 <18.0 mmol/L 04/06/2024 7:14 AM [facility] GLUCOSE 103(H) 70 - 99 mg/dL 04/06/2024 7:14 AM T [facility] BUN 10 10 - 20 mg/dL 04/06/2024 7:14 AM [facility] CREATININE, BLOOD 0.72 0.60 - 1.00 mg/dL 04/06/2024 7:14 AM T [facility] BUN/CREATININE RATIO 14 12 - 20 ratio 04/06/2024 7:14 AM [facility] TOTAL PROTEIN 7.6 6.3 - 8.2 g/dL 04/06/2024 7:14 AM [facility] ALBUMIN 3.8 3.5 - 5.0 g/dL 04/06/2024 7:14 AM [facility] A/G RATIO 1.0 1.0 - 2.2 04/06/2024 7:14 AM [facility] CALCIUM 9.3 8.7 - 10.5 mg/dL 04/06/2024 7:14 AM [facility] T BILI 0.3 0.2 - 1.2 mg/dL 04/06/2024 7:14 AM [facility] SGOT (AST) 22 5 - 34 U/L 04/06/2024 7:14 AM [facility] Comment: Specimen is hemolyzed. In vitro hemolysis could affect results. Clinical correlation advised. SGPT (ALT) 17 0 - 55 U/L 04/06/2024 7:14 AM [facility] ALKALINE PHOSPHATASE 79 40 - 150 U/L 04/06/2024 7:14 AM [facility] GFR, ESTIMATED >60 >=60 04/06/2024 7:14 AM [facility] Comment: Creatinine Clearance is the preferred criteria for selecting drug dose adjustments in renally impaired patients. ??The GFR is provided as additional pertinent clinical information. GFR is reported in mL/min/1.73 sq m. Calculation based on the Chronic Kidney Disease Epidemiology Collaboration (CKD- EPI) equation refit without adjustment for race. GFR, EST. >60 >=60 024 7:14 AM CDT [facility] GFR, EST. NONAFRICAN >60 >=60 04/06/2024 7:14 AM CDT [facility] Blood Venipuncture / Unknown 04/06/2024 6:46 AM CDT 04/06/2024 6:52 AM CDT Cesar Galvan MD CHEMISTRY ORDERABLES F inal Result [facility] [address] [place] [address] documented in this encounter Visit Diagnoses Diagnosis Left flank pain- Primary Abdominal pain, unspecified site documented in this encounter Administered Medications Inactive Administered Medications - up to 3 most recent administrations Medication Order MAR Action Action Date Dose Rate Site fentaNYL (PF) (SUBLIMAZE) injection 50 mcg 50 mcg, Intravenous, ONCE, 1 dose, On [place] 04/06/24 at 0930 Given 04/06/2024 9:11 AM CDT 50 mcg ketorolac (TORADOL) injection 30 mg 30 mg, Intravenous, ONCE, 1 dose, On [place] 04/06/24 at 0930 Given 04/06/2024 9:11 AM CDT 30 mg morphine sulfate (PF) injection 2 mg 2 mg, Intravenous, ONCE, 1 dose, On [place] 04/06/24 at 0730 Given 04/06/2024 7:22 AM CDT 2 mg ondansetron (ZOFRAN) injection 4 mg 4 mg, Intravenous, ONCE, 1 dose, On [place] 04/06/24 at 0730 Given 04/06/2024 7:22 AM CDT 4 mg sodium chloride 0.9 % 1,000 mL IV bolus Intravenous, ONCE, 1 dose, On [place]aire 04/06/24 at 0700, Administer over 0.5 Hours New Bag 04/06/2024 7:22 AM CDT 2000 mL/hr documented in this encounter Active and Recently Administered Medications Times are shown in CDT. Scheduled Medication Order 04/04/2024 04/05/2024 04/06/2024 fentaNYL (PF) (SUBLIMAZE) injection 50 mcg (COMPLETED) 50 mcg, Intravenous, ONCE, 1 dose, On [place]aire 04/06/24 at 0930 0911 (Given - Provid er: Mirlande Coleman RN) ketorolac (TORADOL) injection 30 mg (COMPLETED) 30 mg, Intravenous, ONCE, 1 dose, On [place]aire 24 at 0930 0911 (Given - Provid er: Mirlande Coleman RN) morphine sulfate (PF) injection 2 mg (COMPLETED) 2 mg, Intravenous, ONCE, 1 dose, On [place]aire 04/06/24 at 0730 0722 (Given - Provid er: Radha Rodrigez RN) ondansetron (ZOFRAN) injection 4 mg (COMPLETED) 4 mg, Intravenous, ONCE, 1 dose, On [place] 04/06/24 at 0730 0722 (Given - Provid er: Radha Rodrigez RN) sodium chloride 0.9 % 1,000 mL IV bolus (COMPLETED) Intravenous, ONCE, 1 dose, On [place] 04/06/24 at 0700, Administer over 0.5 Hours 0722 (New Bag - Prov ider: Radha Rodrigez RN)0752 (Due: $Complete Infusion - Provider: Radha Rodrigez RN) documented in this encounter Care Teams Studio Engineer Relationship Specialty Start Date End Date Tomasz Martinez, PAC [address] [place] [id number] PCP - General Physician Market Research Specialist 06/25/20 documented as of this encounter
--- OUTSIDE RECORDS SUMMARY | 2024-07-21 10:46 | XMS_ITS | Continuity of Care Document ---
Author Organization [facility] Address [address] [place] [address] Care Team Providers Care Tong Setter Name Role Phone AZEEM MARTINEZ Primary Care Provider [phone] JOSE ROSADO Yard Assistant Assessment No assessment recorded. Plan of Treatment Reminders Order Date Submit Date Provider Last Modified By Organization Details Last Modified Time Details Appointments None record ed. Lab None record ed. Referral None record ed. Procedures None record ed. Surgeries None record ed. Imaging None record ed. Medication Orders None record ed. Patient TargetsNo targets recorded. Patient InstructionsNo instructions recorded. Reason for Referral None Reported. Results Created Date Observation Date Name Description Value Unit Range Abnormal Flag Note LastModifiedBy Organization Detail LastModifiedTime 04/28/20 24 04/28/2024 blade ortiz study No observ ation record ed. SRIKANTH [facility] ([facility]) Scheduling [address] [place], [address], 05/01/2024 16:12:45 Result Notes None recorded. Problems Name Problem SNOMED Code Status Onset Date Resolution Date Notes Provider Name and Address Organization Details Recorded Time Folliculitis 23217438 Active [place] [facility] 17:31:11 Abscess 862066427 [place] [facility] 17:31:11 History of surgery 582992423 [place] [facility] 17:31:11 History of subtotal thyroidectomy 090833220 [place] [facility] 17:31:11 Depressive disorder 08907111 Active LLUVIA Osei, [facility] 17:31:11 Disorder of thyroid gland 12991052 Active LLUVIA Osei, [facility] 17:31:11 Abscess of skin and/or subcutaneous tissue 19714820 Active LLUVIA Osei, [facility] 17:31:11 Problem Notes None recorded. Procedures Surgical History Date Name Laterality Status Provider Name and Address Organization Details Recorded Time 4 I&D completed JOSE ROSADO MD Attn: Accounting,[address] [facility], [place], [address], [facility] 06/12/2024 17:19:04 3 Date of Last Pap Smear completed Mirlande Tolliver [facility] 02/10/2024 15:02:54 8 colonoscopy completed Anjana Contreras MA [facility] 11/25/2018 10:33:20 Removal of thyroid completed Mirlande Tolliver [facility] 01/01/2023 16:18:21 Imaging Results None recorded. Procedure Notes None recorded. Medical Equipment None Reported. Allergies Allergen ID Allergen Name Allergen Category Reaction Reaction Severity Criticality Documentation Date Start Date Code Code System Note Provider Name and Address Organization Details Recorded Time 304844 No known allergy (situatio n) Not available Not available Not available Not available 05/13/2021 20754 6003 SNOMED LLUVIA Osei, [facility] 17:31:11 No known drug allergies Medications Name [...] sprays twice a day by nasal route. 12/05 completed Not Available Not Available Not [...] Updated DateTime 4 154.94 cm 46.3 kg/m2 209944. 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 [id number] Hard Time Sleeping Information not available 04/22/2022 [...] Skin Problems N Anemia N Heart Attack (NM) N Anxiety Disorder N Diabetes N Muscle, [...] PF, 30 mcg/0.3 mL dose 2 completed [place] [facility] 06/30/2022 17:50:50 Influenza, split virus, quadrivalent, PF 2 completed [place] [facility] 06/30/2022 18:32:36 Influenza, split virus, quadrivalent, preservative 3 completed [place] [facility] 05/18/2023 17:09:22 Past Encounters Encounter ID Performer Location Encounter Start Date Encounter Closed Date Diagnosis/Indication Diagnosis SNOMED-CT Code Diagnosis ICD10 Code [id number] TREVIN REID [facility] [address] [place] [address] 04/20/2024 13:56:25 04/24/2024 09:00:33 Eczema 01939205 L30.9 Gastroesop hageal reflux disease without esophagitis 494269578 K21.9 Decreased hearing 127653 001 H91.90 Body mass index 40+ - severely obese 823278209 Z68.42 Dysphagia 41213411 R13.1 0 HIV screen ing declined 9522498128 31576 Z53.20 [id number] Azeem Martinez PA-C [facility] [address] [place] [address] 04/25/2024 14:26:30 05/02/2024 14:34:09 Helicobacter pylori gastrointestinal tract infection 106183920 B96.81 Gastroesop hageal reflux disease without esophagitis 889245803 K21.9 Health Concerns Section Related Observation LastModified by Organization Detai ls LastModified Time None Recorded Concern Status LastModified by Organization Details LastModified Time None Recorded Payers Encounter Date Sequence Insurance Name Policy Number Policy Bravo Covered Member ID Bravo Member ID Guarantor Name 04/25/2024 1 [facility] [place] [id number] Elizabeth K Иван [id number] lEizabeth Oates Notes Date Note Type Note Provider Name and Address Organization Details Recorded Time 04/25/2024 text/html is concerned re ulcer and positive H Pylori...has a family hx of ulcers Azeem Martinez PA-C Attn: Accounting,[address] [facility], [place], [address], [facility] 04/25/2024 16:05:55 OBGyn Episode No OBEpisode recorded.
--- OUTSIDE RECORDS SUMMARY | 2024-07-21 10:46 | XMS_ITS | Encounter Summary ---
Author Organization [facility] Address [address] [place] [address] Phone Care Team Providers Care Sas Programmer Analyst Name Role Phone Tomasz Martinez Primary Care Provider [phone] Reason for Visit * Reason Comments Arm Injury Encounter Details Date Type Department Care Team (Late st Contact Info) Description 01/27/2023 3:00 PM CDT - 01/27/2023 5:41 PM CDT Emergency [facility] Emergency [address] [place] [id number] Radha Orozco, PAC [address] [place] [address] Left elbow contusion Discharge Disposition: Discharged to home or Selfcare [...] suspected to have Coronavirus/COVID-19? No / Unsure 01/27/2023 2:55 PM CDT documented as of this encounter Last Filed Vital Signs Vital Sign Reading Time Taken Comments Blood Pressure 139/85 01/27/2023 2:55 PM CDT Pulse 74 01/27/2023 2:55 PM CDT Temperature 36.6 ??C (97.8 ??F) 01/27/2023 2:55 PM CD T Respiratory Rate 20 01/27/2023 2:55 PM CDT Oxygen Saturation 98% 01/27/2023 2:55 PM CDT Inhaled Oxygen Concentration - - Weight 113.4 kg (250 lb) 01/27/2023 2:55 PM CDT Height 152.4 cm (5') 01/27/2023 2:55 PM CDT Body Mass Index 48.82 01/27/2023 2:55 PM CDT documented in this encounter Discharge Instructions * Discharge Instructions* Radha Orozco PAC - 01/27/2023 5:16 PM CDT Please follow up with your primary care provider. Return for reevaluation if your symptoms change or worsen. * Attachments The following attachments cannot be sent through Care Everywhere. * Elbow Contusion (Samoan) documented in this encounter Medications at Time of Discharge albuterol 108 (90 Base) MCG/ACT Aerosol Solution take 2 Puffs by inhalation every 6 hours as needed for Wheezing. 8 g 07/28/2021 escitalopram (LEXAPRO) 10 MG Tablet Take 10 mg by mouth daily. levothyroxine (SYNTHROID) 50 MCG Tablet Take 50 mcg by mouth daily. LORazepam (ATIVAN) 1 MG Tablet Take 0.5 Tabs by mouth every 8 hours as needed for Anxiety. 15 Tab 07/07/2020 naloxone HCl (Narcan) 4 MG/0.1ML Liquid 1 Benedict by Nasal route as needed (opioid overdose). [...] Nausea - 1st line. 10 Tablet 05/23/2022 HYDROcodone-aceta minophen (NORCO) 5-325 MG TabletIndications :SI (sacroiliac) joint inflammation (HCC),Sacroiliac pain Take 1 Tablet by mouth every 6 hours as needed for Severe pain. 20 Tablet 11/11/2022 3 HYDROcodone-aceta minophen (NORCO) 5-325 MG TabletIndications :Chest wall abscess Take 1 Tablet by mouth every 8 hours as needed for Moderate or more severe pain. 12 Tablet 02/05/2022 3 documented as of this encounter ED Notes * Rosario Haas RN - 01/27/2023 5:40 PM CDT Patient refused discharge vitals. Patient discharged. Discharge instructions and patient educational material reviewed with patient; questions and concerns addressed; patient verbalizes understanding, using teach back. Patient was given no prescriptions. Patient discharged per ambulatory mode with work note and as responsible alliance party. * Rosario Haas RN - 01/27/2023 5:34 PM CDT Sling applied to LUE per PCT. * Radha Orozco, CRISSY - 01/27/2023 5:17 PM CDT Chief Complaint Patient presents with ??? Arm Injury HPI Elizabeth Oates is a 57 y.o. female who presents due to L elbow pain radiating to her L shoulder which started today. She states she tripped over my own two feet and landed on her L elbow. She denies hitting her head or loss of consciousness. She states that she [place] something pop. She took hydrocodone at home which did not help which she takes on a regular basis. She denies any numbness, chest pain, sob, dizziness, or headache. PMH includes depression and thyroid disease. Patient is a nonsmoker. Her provider is Tomasz Martinez. No current facility-administered medications for this encounter. Current Outpatient Medications Medication Sig Dispense Refill ??? albuterol 108 (90 Base) MCG/ACT Aerosol Solution take 2 Puffs by inhalation every 6 hours as needed for Wheezing. 8 g 0 ??? escitalopram (LEXAPRO) 10 MG Tablet Take 10 mg by mouth daily. ??? HYDROcodone-acetaminophen (NORCO) 5-325 MG Tablet Take 1 Tablet by mouth every 6 hours as needed for Severe pain. 20 Tablet 0 ??? HYDROcodone-acetaminophen (NORCO) 5-325 MG Tablet Take 1 Tablet by mouth every 8 hours as needed for Moderate or more severe pain. 12 Tablet 0 ??? levothyroxine (SYNTHROID) 50 MCG Tablet Take 50 mcg by mouth daily. ??? LORazepam (ATIVAN) 1 MG Tablet Take 0.5 Tabs by mouth every 8 hours as needed for Anxiety. 15 Tab 0 ??? naloxone HCl (Narcan) 4 MG/0.1ML Liquid 1 Benedict by Nasal route as needed (opioid overdose). administer for symptoms of overdose (severe sleepiness, breathing problems, not responsive). Call 911. May use additional dose to repeat 1 spray intranasally in 2-3 minutes if needed. 2 Each 0 ??? naproxen (NAPROSYN) 500 MG Tablet Take 1 Tablet by mouth 2 times daily as needed for Moderate or more severe pain. 20 Tablet 0 ??? ondansetron (ZOFRAN) 4 MG Tablet Take 1-2 Tablets by mouth every 8 hours as needed for Nausea -1st line. 10 Tablet 0 No Known Allergies Past [...] History Narrative ??? Not on file BP 139/85 Pulse 74 Temp 97.8 ??F (36.6 ??C) (Tympanic) Resp 20 Ht 5' (1.524 m) Wt 250 lb (113.4 kg) SpO2 98% BMI 48.82 kg/m?? Review of Systems Constitutional: Negative for chills and fever. HENT: Negative for congestion, ear pain, rhinorrhea and sore throat. Eyes: Negative for discharge. Respiratory: Negative for cough, chest tightness, shortness of breath and wheezing. Cardiovascular: Negative for chest pain and palpitations. Gastrointestinal: Negative for abdominal pain, diarrhea, nausea and vomiting. Genitourinary: Negative for difficulty urinating and menstrual problem. Musculoskeletal: Positive for arthralgias (L elbow pain radiating to L shoulder ). Negative for myalgias. Skin: Negative for rash and wound. Neurological: Negative for dizziness, syncope and headaches. All other systems reviewed and are negative. Physical Exam Vitals and nursing note reviewed. Constitutional: General: She is not in acute distress. Appearance: She is well-developed. She is not diaphoretic. HENT: Head: Normocephalic and atraumatic. Right Ear: External ear normal. Left Ear: External ear normal. Eyes: Conjunctiva/sclera: Conjunctivae normal. Pupils: Pupils are equal, round, and reactive to light. Neck: Trachea: No tracheal deviation. Cardiovascular: Rate and Rhythm: Normal rate and regular rhythm. Heart sounds: Normal heart sounds. No murmur heard. Pulmonary: Effort: Pulmonary effort is normal. No respiratory distress. Breath sounds: Normal breath sounds. No wheezing or rales. Abdominal: General: Bowel sounds are normal. There is no distension. Palpations: Abdomen is soft. Tenderness: There is no abdominal tenderness. There is no guarding or rebound. Musculoskeletal: General: Tenderness (tenderness to L lateral elbow with mild edema. FROM L shoulder and limited extension L shoulder. Radial pulse intact. ) present. Normal range of motion. Cervical back: Normal range of motion. Skin: General: Skin is warm and dry. Neurological: Mental Status: She is alert and oriented to person, place, and time. Cranial Nerves: No cranial nerve deficit. Procedures Imaging Results XR SHOULDER COMPLETE LEFT (Final result) Result time 01/27/23 16:39:41 Final result by Antonio Jerry MD (01/27/23 16:39:41) Impression: IMPRESSION: No acute fracture left elbow. No acute fracture left shoulder. Moderate osteoarthritis glenohumeral joint and mild to moderate of the AC joint. Narrative: EXAM DESCRIPTION: XR ELBOW MINIMUM 3 VIEWS LEFT; XR SHOULDER COMPLETE LEFT REASON FOR STUDY: Pain after fall today. TECHNIQUE: 3 radiographic view(s) of the left elbow . Three views left shoulder. COMPARISON: No prior. FINDINGS: Left elbow: Normal mineralization. No fracture or dislocation. Joint spaces are intact. No posterior fat pad sign. No significant arthropathy. Left shoulder: Normal mineralization. No acute fracture or dislocation. Moderate osteoarthritis glenohumeral joint. Xjkx-xs-idjlbnba change of the AC joint. Adjacent ribs and soft tissues are unremarkable. THIS IS AN ELECTRONICALLY VERIFIED FINAL REPORT 01/27/2023 4:36 PM - Electronically signed by Antonio JEFFREY Report ID: [id number] Reading Location: [id number] XR ELBOW MINIMUM 3 VIEWS LEFT (Final result) Result time 01/27/23 16:39:41 Final result by Antonio Jerry MD (01/27/23 16:39:41) Impression: IMPRESSION: No acute fracture left elbow. No acute fracture left shoulder. Moderate osteoarthritis glenohumeral joint and mild to moderate of the AC joint. Narrative: EXAM DESCRIPTION: XR ELBOW MINIMUM 3 VIEWS LEFT; XR SHOULDER COMPLETE LEFT REASON FOR STUDY: Pain after fall today. TECHNIQUE: 3 radiographic view(s) of the left elbow . Three views left shoulder. COMPARISON: No prior. FINDINGS: Left elbow: Normal mineralization. No fracture or dislocation. Joint spaces are intact. No posterior fat pad sign. No significant arthropathy. Left shoulder: Normal mineralization. No acute fracture or dislocation. Moderate osteoarthritis glenohumeral joint. Jarf-wo-wghloowb change of the AC joint. Adjacent ribs and soft tissues are unremarkable. THIS IS AN ELECTRONICALLY VERIFIED FINAL REPORT 01/27/2023 4:36 PM - Electronically signed by Antonio JEFFREY: WOJCIECH Report ID: [id number] Reading Location: [id number] Labs Reviewed - No data to display MDM Clinical Impression 1. Left elbow contusion 2. Muscle strain of left upper extremity Disposition: Discharged Reviewed negative xray results with patient. Encouraged rest, ice, elevation, and to see her pmd for a recheck if her symptoms are not improving in the next three days. Patient expressed understanding and agreement to the tx plan. Cosigned by Chao Meehan MD at 01/28/2023 6:28 AM CDT * Rosario Haas RN - 01/27/2023 4:54 PM CDT Pt medicated per provider orders. Pt educated on intended effects and side effects of medication and verbalized understanding, able to provide teach back of education. Soda provided per request. * Rosario Haas RN - 01/27/2023 3:55 PM CDT No change since triage, see triage note. Assessment as documented. Will continue to monitor. * Lisa Waters RN - 01/27/2023 2:58 PM CDT Presents to ED following a ground level fall where she landed on left arm. States she heard something pop. Is complaining of pain in left shoulder to elbow. documented in this encounter Plan of Treatment Not on file documented as of this encounter Procedures Procedure Name Priority Date/Time Associated Diagnosis Comments XR SHOULDER COMPLETE LEFT STAT 01/27/2023 3:33 PM CDT XR ELBOW MINIMUM 3 VIEWS LEFT STAT 01/27/2023 3:33 PM CDT documented in this encounter Results * XR ELBOW MINIMUM 3 VIEWS LEFT (01/27/2023 3:33 PM CDT) Anatomical Region Laterality Modality UPPER EXTREMITY, elbow Left Digital R adiography 01/27/2023 4:36 PM CDT Impressions 01/27/2023 4:39 PM CDT IMPRESSION: No acute fracture left elbow. No acute fracture left shoulder. Moderate osteoarthritis glenohumeral joint and mild to moderate of the AC joint. Narrative 01/27/2023 4:39 PM CDT EXAM DESCRIPTION: XR ELBOW MINIMUM 3 VIEWS LEFT; XR SHOULDER COMPLETE LEFT REASON FOR STUDY: Pain after fall today. TECHNIQUE: 3 ??radiographic view(s) of the ??left elbow . Three views left shoulder. COMPARISON: No prior. FINDINGS: Left elbow: Normal mineralization. ??No fracture or dislocation. ??Joint spaces are intact. ??No posterior fat pad sign. ??No significant arthropathy. Left shoulder: Normal mineralization. ??No acute fracture or dislocation. ??Moderate osteoarthritis glenohumeral joint. ??Nopc-we-zuiwetmf change of the AC joint. ??Adjacent ribs and soft tissues are unremarkable. THIS IS AN ELECTRONICALLY VERIFIED FINAL REPORT 01/27/2023 4:36 PM - Electronically signed by ??Antonio Jerry M.D. MJ: WOJCIECH D: ??01/27/2023 4:36 PM T: ??01/27/2023 4:36 PM Report ID: [id number] Reading Location: ??[id number] Procedure Note Antonio Jerry MD - 01/27/2023 EXAM DESCRIPTION: XR ELBOW MINIMUM 3 VIEWS LEFT; XR SHOULDER COMPLETE LEFT REASON FOR STUDY: Pain after fall today. TECHNIQUE: 3 radiographic view(s) of the left elbow . Three views left shoulder. COMPARISON: No prior. FINDINGS: Left elbow: Normal mineralization. No fracture or dislocation. Joint spaces are intact. No posterior fat pad sign. No significant arthropathy. Left shoulder: Normal mineralization. No acute fracture or dislocation. Moderate osteoarthritis glenohumeral joint. Svld-zz-obsjdnhh change of the AC joint. Adjacent ribs and soft tissues are unremarkable. THIS IS AN ELECTRONICALLY VERIFIED FINAL REPORT 01/27/2023 4:36 PM - Electronically signed by Antonio JEFFREY Report ID: [id number] Reading Location: [id number] IMPRESSION: No acute fracture left elbow. No acute fracture left shoulder. Moderate osteoarthritis glenohumeral joint and mild to moderate of the AC joint. Chao Meehan MD [facility] ORDERAB LES Final Result * XR SHOULDER COMPLETE LEFT (01/27/2023 3:33 PM CDT) Anatomical Region Laterality Modality UPPER EXTREMITY, shoulder Left Digita l Radiography 01/27/2023 4:36 PM CDT Impressions 01/27/2023 4:39 PM CDT IMPRESSION: No acute fracture left elbow. No acute fracture left shoulder. Moderate osteoarthritis glenohumeral joint and mild to moderate of the AC joint. Narrative 01/27/2023 4:39 PM CDT EXAM DESCRIPTION: XR ELBOW MINIMUM 3 VIEWS LEFT; XR SHOULDER COMPLETE LEFT REASON FOR STUDY: Pain after fall today. TECHNIQUE: 3 ??radiographic view(s) of the ??left elbow . Three views left shoulder. COMPARISON: No prior. FINDINGS: Left elbow: Normal mineralization. ??No fracture or dislocation. ??Joint spaces are intact. ??No posterior fat pad sign. ??No significant arthropathy. Left shoulder: Normal mineralization. ??No acute fracture or dislocation. ??Moderate osteoarthritis glenohumeral joint. ??Fgbu-el-myfyiuxs change of the AC joint. ??Adjacent ribs and soft tissues are unremarkable. THIS IS AN ELECTRONICALLY VERIFIED FINAL REPORT 01/27/2023 4:36 PM - Electronically signed by ??Antonio JEFFREY: WOJCIECH D: ??01/27/2023 4:36 PM T: ??01/27/2023 4:36 PM Report ID: [id number] Reading Location: ??[id number] Procedure Note Antonio Jerry MD - 01/27/2023 EXAM DESCRIPTION: XR ELBOW MINIMUM 3 VIEWS LEFT; XR SHOULDER COMPLETE LEFT REASON FOR STUDY: Pain after fall today. TECHNIQUE: 3 radiographic view(s) of the left elbow . Three views left shoulder. COMPARISON: No prior. FINDINGS: Left elbow: Normal mineralization. No fracture or dislocation. Joint spaces are intact. No posterior fat pad sign. No significant arthropathy. Left shoulder: Normal mineralization. No acute fracture or dislocation. Moderate osteoarthritis glenohumeral joint. Fsvu-zc-nsqynmud change of the AC joint. Adjacent ribs and soft tissues are unremarkable. THIS IS AN ELECTRONICALLY VERIFIED FINAL REPORT 01/27/2023 4:36 PM - Electronically signed by Antonio Jerry M.D. MJ: WOJCIECH Report ID: [id number] Reading Location: [id number] IMPRESSION: No acute fracture left elbow. No acute fracture left shoulder. Moderate osteoarthritis glenohumeral joint and mild to moderate of the AC joint. Chao Meehan MD [facility]NO[facility] ORDERAB LES Final Result documented in this encounter Visit Diagnoses Diagnosis Left elbow contusion- Primary Contusion of elbow Muscle strain of left upper extremity documented in this encounter Administered Medications Inactive Administered Medications - up to 3 most recent administrations Medication Order MAR Action Action Date Dose Rate Site ketorolac (TORADOL) injection 30 mg 30 mg, Intramuscular, ONCE, 1 dose, On Wed01/27/23 at 1700 Given 01/27/2023 4:53 PM CDT 30 mg Right Deltoid documented in this encounter Active and Recently Administered Medications Times are shown in CDT. Scheduled Medication Order 01/25/2023 01/26/2023 01/27/2023 ketorolac (TORADOL) injection 30 mg (COMPLETED) 30 mg, Intramuscular, ONCE, 1 dose, On Wed01/27/23 at 1700 1653 (Given - Provid er: Rosario Haas RN) documented in this encounter Care Teams Sas Programmer Analyst Relationship Specialty Start Date End Date Tomasz Martinez, PAC [address] [place] [address] PCP - General Physician Commodity Merchant 06/25/20 documented as of this encounter
--- OUTSIDE RECORDS SUMMARY | 2024-07-21 10:46 | XMS_ITS | Encounter Summary ---
Author Organization [facility] Address [address] [place] [address] Phone Care Team Providers Care Logging Worker Name Role Phone Tomasz Martinez Primary Care Provider [phone] Reason for Visit * Reason Comments Flank Pain Encounter Details Date Type Department Care Team (Late st Contact Info) Description 06/04/2023 8:00 AM CDT - 06/04/2023 10:59 AM CDT Emergency [facility] Emergency [address] [place] [address] Chao Meehan MD [address] [place] [address] Acute right-sided low back pain without sciatica Discharge Disposition: Discharged to home or Selfcare [...] AM CDT documented as of this encounter Last Filed Vital Signs Vital Sign Reading Time Taken Comments Blood Pressure 134/80 06/04/2023 10:45 AM CDT Pulse 76 06/04/2023 10:58 AM CDT Temperature 35.8 ??C (96.5 ??F) 06/04/2023 8:06 AM CD T Respiratory Rate 16 06/04/2023 8:06 AM CDT Oxygen Saturation 95% 06/04/2023 10:58 AM CDT Inhaled Oxygen Concentration - - Weight 106.6 kg (235 lb) 06/04/2023 8:06 AM CDT Height 154.9 cm (5' 1 ) 06/04/2023 8:06 AM CDT Body Mass Index 44.4 06/04/2023 8:06 AM CDT documented in this encounter Discharge Instructions * Attachments The following attachments cannot be sent through Care Everywhere. * Acute Back Pain Adult (Barbadian) documented in this encounter Medications at Time [...] naloxone HCl (Narcan) 4 MG/0.1ML Liquid 1 Freeman by Nasal route as needed (opioid overdose). [...] Nausea - 1st line. 10 Tablet 05/23/2022 documented as of this encounter ED Notes * Lisa Waters RN - 06/04/2023 10:58 AM CDT Patient discharged. Discharge instructions and patient educational material reviewed with patient; questions and concerns addressed; patient verbalizes understanding, using teach back. Patient was given 1 prescriptions. Patient was informed no drinking alcohol, driving or operating heavy machinery while taking narcotics or muscle relaxants. Patient discharged per ambulatory mode with self as responsible libertarian. * Lula Montgomery RN - 06/04/2023 9:54 AM CDT Pt medicated per provider orders. Pt educated on intended effects and side effects of medication and verbalized understanding, able to provide teach back of education. * Chao Meehan MD - 06/04/2023 9:10 AM CDT Chief Complaint Patient presents with ??? Flank Pain HPI 57 yo female presents to the ED c/o back pain. She has had right lower back pain for the since yesterday. Worse with walking. Tried naproxen without improvement. Additionally, reports urinary frequency and urgency. Denies dysuria, hematuria, fever. Current Facility-Administered Medications Medication Dose Route Frequency Provider Last Rate Last Admin ??? HYDROcodone-acetaminophen (NORCO) 5-325 MG per tablet 1 Tablet 1 Tablet Oral Once Chao Meehan MD Current Outpatient Medications Medication Sig Dispense Refill ??? albuterol 108 (90 Base) MCG/ACT Aerosol Solution take 2 Puffs by inhalation every 6 hours as needed for Wheezing. (Patient not taking: Reported on 06/04/2023) 8 g 0 ??? busPIRone (BUSPAR) 5 MG Tablet [...] naloxone HCl (Narcan) 4 MG/0.1ML Liquid 1 Freeman by Nasal route as needed (opioid overdose). [...] History Narrative ??? Not on file BP (!) 149/95 Pulse 73 Temp 96.5 ??F (35.8 ??C) (Tympanic) Resp 16 Ht 5' 1 (1.549 m) Wt 235 lb (106.6 kg) SpO2 98% BMI 44.40 kg/m?? Review of Systems Constitutional: Negative for chills and fever. HENT: Negative. Respiratory: Negative for shortness of breath. Cardiovascular: Negative for chest pain. Gastrointestinal: Negative for nausea and vomiting. Genitourinary: Positive for frequency and urgency. Negative for dysuria. Musculoskeletal: Positive for back pain. Skin: Negative. Neurological: Negative. All other systems reviewed and are negative. Physical Exam Vitals and nursing note reviewed. Constitutional: General: She is not in acute distress. Appearance: Normal appearance. She is not ill-appearing. HENT: Head: Normocephalic and atraumatic. Right Ear: External ear normal. Left Ear: External ear normal. Cardiovascular: Rate and Rhythm: Normal rate and regular rhythm. Heart sounds: Normal heart sounds. Pulmonary: Effort: Pulmonary effort is normal. Breath sounds: Normal breath sounds. Abdominal: General: There is no distension. Tenderness: There is no abdominal tenderness. Musculoskeletal: Thoracic back: Tenderness present. No deformity, spasms or bony tenderness. Lumbar back: Tenderness present. No swelling, deformity or bony tenderness. Negative right straightleg raise test and negative left straight leg raise test. Skin: General: Skin is warm and dry. Neurological: General: No focal deficit present. Mental Status: She is alert and oriented to person, place, and time. Procedures Recent Results (from the past 24 hour(s)) URINALYSIS REFLEX IF INDICATED BY ABNORMAL RESULTS Result Value Ref Range SPECIFIC GRAVITY 1.020 1.003 - 1.030 URINE PH 5.0 5.0 - 9.0 WBC ESTERASE 25 /ul (A) Negative NITRITE Negative Negative PROTEIN, RANDOM URINE 15 mg/dL (A) Negative URINE GLUCOSE, QUAL Negative Negative URINE KETONES Negative Negative UROBILINOGEN Normal Normal mg/dL URINE BLOOD Negative Negative eden/ul URINALYSIS COLOR Yellow URINALYSIS CLARITY Clear WBC (Urine) 0-5 Negative, 0-5 /hpf URINE RBC'S 0-2 Negative, 0-2 /hpf EPITHELIAL CELLS Occasional /lpf BACTERIA, URINE Negative Negative /hpf Imaging Results None Medical Decision Making UTI, Strain, sprain, other UA unremarkable Reporting no relief after toradol. Got Parker last time with good relief. Will try this again Amount and/or Complexity of Data Reviewed Labs: ordered. Decision-making details documented in ED Course. Clinical Impression 1. Acute right-sided low back pain without sciatica Disposition: No Disposition Selected The patient remained stable throughout their ED stay. My clinical impression was discussed with thepatient/family. Lab results were reviewed with them. I gave them the opportunity to ask questions, and addressed them as completely as possible given the information available at present. The therapeutic plan was discussed, instructions were given and the importance of primary care follow up was stressed and encouraged. The patient/family voiced understanding of the plan, indications to return, and the need for follow up. * Lula Montgomery RN - 06/04/2023 8:49 AM CDT Pt medicated per provider orders. Pt educated on intended effects and side effects of medication and verbalized understanding, able to provide teach back of education. * Jerzy Church RN - 06/04/2023 8:09 AM CDT Pt to ed room 7 with c/o right flank pain that has been ongoing since yesterday. PT states that sheoriginally thought that it was just her lower back, but has become concerned that it may be a UTI. She denies any dysuria, but does state that she has had some frequency and urgency. documented in this encounter Plan of Treatment Not on file documented as of this encounter Procedures Procedure Name Priority Date/Time Associated Diagnosis Comments URINALYSIS REFLEX IF INDICATED BY ABNORMAL RESULTS STAT 06/04/2023 8:10 AM CDT documented in this encounter Results * (ABNORMAL) URINALYSIS REFLEX IF INDICATED BY ABNORMAL RESULTS (06/04/2023 8:10 AM CDT) SPECIFIC GRAVITY 1.020 1.003 - 1.030 06/04/2023 8:58 AM CDT [facility] URINE PH 5.0 5.0 - 9.0 06/04/2023 8:58 AM CDT [facility] WBC ESTERASE 25 /ul(A) Negative 06/04/2023 8:58 AM CDT [facility] NITRITE Negative Negative 06/04/2023 8:58 AM CDT [facility] PROTEIN, RANDOM URINE 15 mg/dL(A) Negative 06/04/2023 8:58 AM CDT [facility] URINE GLUCOSE, QUAL Negative Negative 06/04/2023 8:58 AM CDT [facility] URINE KETONES Negative Negative 06/04/2023 8:58 AM CDT [facility] UROBILINOGEN Normal Normal mg/dL 06/04/2023 8:58 AM CDT [facility] URINE BLOOD Negative Negative eden/ul 06/04/2023 8:58 AM CDT [facility] URINALYSIS COLOR Yellow 06/04/20 8:58 AM CDT [facility] URINALYSIS CLARITY Clear 06/04/2023 8:58 AM CDT [facility] WBC (Urine) 0-5 Negative, 0-5 /hpf 06/04/2023 8:58 AM CDT [facility] URINE RBC'S 0-2 Negative, 0-2 /hpf 06/04/2023 8:58 AM CDT [facility] EPITHELIAL CELLS Occasional /lpf 06/04/20 8:58 AM CDT [facility] BACTERIA, URINE Negative Negative /hpf 06/04/2023 8:58 AM CDT [facility] Urine URINE SPECIMEN COLLECTION, CLEAN CATCH / Unknown Non-Phlebotomy Collection / Unknown 06/04/2023 8:10 AM CDT 06/04/2023 8:29 AM CDT Chao Meehan MD URINE ORDERABLES Final Result [facility] [address] [place] [address] documented in this encounter Visit Diagnoses Diagnosis Acute right-sided low back pain without sciatica- Primary documented in this encounter Administered Medications Inactive Administered Medications - up to 3 most recent administrations Medication Order MAR Action Action Date Dose Rate Site HYDROcodone-acetaminophe n (NORCO) 5-325 MG per tablet 1 Tablet 1 Tablet, Oral, ONCE, 1 dose, On Wed06/04/23 at 1000, Maximum dose of acetaminophen is 4000 mg from all sources in 24 hours.If pain not effectively managed, then contact provider to discuss possibly 1) adding scheduled opioid dosing or non-opioid pain treatments, 2) increasing dosage, or 3) changing to CRYSTAL ATTACHER. Given 06/04/2023 9:51 AM CDT 1 Tablet ketorolac (TORADOL) injection 60 mg 60 mg, Intramuscular, ONCE, 1 dose, On Wed06/04/23 at 0900 Given 06/04/2023 8:47 AM CDT 60 mg Left Ventrogluteal documented in this encounter Active and Recently Administered Medications Times are shown in CDT. Scheduled Medication Order 06/02/2023 06/03/2023 06/04/2023 HYDROcodone-acetaminophen (NORCO) 5-325 MG per tablet 1 Tablet (COMPLETED) 1 Tablet, Oral, ONCE, 1 dose, On Wed06/04/23 at 1000, Maximum dose of acetaminophen is 4000 mg from all sources in 24 hours.If pain not effectively managed, then contact provider to discuss possibly 1) adding scheduled opioid dosing or non-opioid pain treatments, 2) increasing dosage, or 3) changing to CRYSTAL ATTACHER. 0951 (Given - Provid er: Lula Montgomery RN) ketorolac (TORADOL) injection 60 mg (COMPLETED) 60 mg, Intramuscular, ONCE, 1 dose, On Wed06/04/23 at 0900 0847 (Given - Provid er: Lula Montgomery RN) documented in this encounter Care Teams Logging Worker Relationship Specialty Start Date End Date Tomasz Martinez PAC [address] [place] [id number] PCP - General Physician Concrete Mixer 06/25/20 documented as of this encounter
--- OUTSIDE RECORDS SUMMARY | 2024-07-21 10:46 | XMS_ITS | Encounter Summary ---
Author Organization [facility] Address [address] [place] [address] Phone Care Team Providers Care Canadian Bacon Tier Name Role Phone Tomasz Martinez Primary Care Provider [phone] Reason for Referral * Radiology Services (Routine) - Open Specialty Diagnoses / Procedures Referred By Carolina t Referred To Contact Radiology Diagnoses Dysphagia, unspecified type Procedures XR ESOPHAGRAM Piedad Jorge APRN, FOOD AND NUTRITION TEACHER [address] [address] Phone: tel: fax: Referral ID Status Reason Start Date Expiration Date Visits Re quested Visits Authorized [id number] Open 04/21/2024 1 1 Encounter Details Date Type Department Care Team (Late st Contact Info) Description 04/21/2024 Transcribe Orders [facility] Scheduling [address] [place] [id number] Piedad Jorge APRN, FOOD AND NUTRITION TEACHER [address] [address] Dysphagia, unspecified type Social History Tobacco Use Types Packs/Day Years [...] on file documented as of this encounter Results * XR ESOPHAGRAM (04/28/2024 8:46 AM CDT) [...] Electronically signed by ??Jerzy Major M.D. AG: JORGE D: ??04/28/2024 2:34 PM T: ??04/28/2024 2:34 PM Report ID: [id number] Reading Location: ??[id number] Procedure Note Jerzy Major MD - 04/28/2024 [...] Electronically signed by Jerzy Major M.D. AG: AG Report ID: [id number] Reading Location: [place] [address] IMPRESSION: 1. No significant stricture is seen. Tiny sliding hiatal hernia. Follow-up upper endoscopy is recommended for further evaluation. Piedad Jorge ENVIRONMENTAL STUDIES PROGRAM DIRECTOR, FOOD AND NUTRITION TEACHER IMG FLUOROSCOPY ORDERAB LES Final Result documented in this encounter Visit Diagnoses Diagnosis Dysphagia, unspecified type Dysphagia, unspecified type documented in this encounter Care Teams Canadian Bacon Tier Relationship Specialty Start Date End Date Tomasz Martinez PAC [address] [place] [address] PCP - General Physician Light Oil Operator 06/25/20 documented as of this encounter
--- OUTSIDE RECORDS SUMMARY | 2024-07-21 10:46 | XMS_ITS | Continuity of Care Document ---
Author Organization [facility] Address [address] [place] [address] Care Team Providers Care Supervisor Motor Vehicle Assembly Name Role Phone AZEEM MARTINEZ Primary Care Provider JOSE ROSADO All Round Logger Assessment No assessment recorded. Plan of Treatment Reminders Order Date Submit Date Provider Last Modified By Organization Details Last Modified Time Details Appointments None recorded. Lab H pylori urea breath test, co2 infrared 2023 024 [facility], [address] [place] [address], [address], 4 13:14:37 Referral audiologis t referral 2023 024 [facility], [address] [place] [address], [address], 4 17:38:28 Procedures None recorded. Surgeries None recorded. Imaging barium swallow study 2023 024 [facility]) Scheduling, [address] [place], [address], 4 16:10:26 Medication Orders famotidine 20 mg tablet 2023 024 [id number], [address], [place], [place], [phone], 4 14:34:12 triamcinol one acetonide 0.1 % topical cream 2023 024 [id number], [address], [place], [place], [phone], 14:34:12 Patient TargetsNo targets recorded. Patient Instructions Encounter Date Encounter Id Patient Instructions Last Modified By Organization Details Last Modified Time 04/20/2024 [id number] A healthy lifest yle: care instructions Not available 04/20/2024 14:34:12 gastroesophageal reflux disease (GERD): care instructions [email or web address] Not available 04/20/2024 14:33:37 learning about t he mediterranean diet [email or web address] Not available 04/20/2024 14:33:37 Plan of care has been discussed with patient including expected therapeutic benefits and potential side effects of prescribed medication and treatments. Patient verbalizes understanding and is in agreement with the plan of care. Patient was instructed to keep all scheduled appointments and contact the clinic for any additional problems. [email or web address] Not available 04/20/2024 14:36:28 Reason for Referral Senior Instructor Referral for Dec reased hearing Referring Physician: Piedad Jorge, Family Medicine, Encounter Date: 04/20/2024 Results Created Date Observation Date Name Description Value Unit Range Abnormal Flag Note LastModifiedBy Organization Detail LastModifiedTime 04/28/20 24 04/28/2024 blade ortiz study No observ ation record ed. [facility] ([facility]) Scheduling [address] [place], [address], 05/01/2024 16:12:45 Result Notes None recorded. Problems Name Problem SNOMED Code Status Onset Date Resolution Date Notes Provider Name and Address Organization Details Recorded Time Folliculitis [id number] LLUVIA Matt, MELO - [facility] 17:31:11 Abscess 613000047 LLUVIA Matt, MELO - [facility] 17:31:11 History of surgery 476901517 LLUVIA Matt, MELO - [facility] 17:31:11 History of subtotal thyroidectomy 063387422 [place] [facility] 17:31:11 Depressive disorder 22776674 Active [place] [facility] 17:31:11 Disorder of thyroid gland 65574707 [place] [facility] 17:31:11 Abscess of skin and/or subcutaneous tissue 10937030 Active LLUVIA Osei, [facility] 17:31:11 Problem Notes None recorded. Procedures Surgical History Date Name Laterality Status Provider Name and Address Organization Details Recorded Time 4 I&D completed JOSE ROSADO MD Attn: Accounting,[address] [facility], [place], [address], [facility] - [facility] 06/12/2024 17:19:04 3 Date of Last Pap Smear completed Mirlande Unruly [facility] - [facility] 02/10/2024 15:02:54 8 colonoscopy completed Anjana Contreras MA [place] - [facility] 11/25/2018 10:33:20 Removal of thyroid completed Mirlande Unruly [facility] 01/01/2023 16:18:21 Imaging Results None recorded. Procedure Notes None recorded. Medical Equipment None Reported. Allergies Allergen ID Allergen Name Allergen Category Reaction Reaction Severity Criticality Documentation Date Start Date Code Code System Note Provider Name and Address Organization Details Recorded Time 101316 No known allergy (situatio n) Not available Not available Not available Not available 05/13/2021 72736 6003 SNOMED LLUVIA Osei, [place] - [facility] 17:31:11 No known drug allergies [...] Updated DateTime 4 154.94 cm 45.9 kg/m2 891637. 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 [id number] Hard Time Sleeping Information not available 04/22/2022 [...] Skin Problems N Anemia N Heart Attack ([place]) N Anxiety Disorder N Diabetes N Muscle, [...] Diagnosis/Indication Diagnosis SNOMED-CT Code Diagnosis ICD10 Code [id number] Azeem Martinez PA-C [facility] [address] [place] [address] 03/24/2024 14:38:10 03/27/2024 14:26:18 Chronic depression 289204412 F34.1 History of polyp of colon 225185471 Z86.010 Overweight 915946262 E66 .3 Screening for malignant neoplasm of breast 436942370 Z12.31 [id number] TREVIN REID [facility] [address] [place] [address] 04/20/2024 13:56:25 04/24/2024 09:00:33 Eczema 41657232 L30.9 Gastroesop hageal reflux disease without esophagitis 969190941 K21.9 Decreased hearing 481050 001 H91.90 Body mass index 40+ - severely obese 067011022 Z68.42 Dysphagia 11471551 R13.1 0 HIV screen ing declined [id number] 13561 Z53.20 Health Concerns Section Related Observation LastModified by Organization Detai ls LastModified Time None Recorded Concern Status LastModified by Organization Details LastModified Time None Recorded Payers Encounter Date Sequence Insurance Name Policy Number Policy Bravo Covered Member ID Bravo Member ID Guarantor Name 04/20/2024 1 [facility] [id number] Elizabeth Oates [id number] Elizabeth Oates Notes Date Note Type Note Provider Name and Address Organization Details Recorded Time 04/20/2024 text/html Patient presents to the clinic [...] obtained in the ED. TREVIN REID Attn: Accounting,[address] [facility], [place], [address], [facility] - [facility] 04/20/2024 17:10:58 OBGyn Episode No OBEpisode recorded.
--- OUTSIDE RECORDS SUMMARY | 2024-07-21 10:46 | XMS_ITS | Encounter Summary ---
Author Organization [facility] Address [address] [place] [address] Phone Care Team Providers Care Warp Knitter Helper Name Role Phone Tomasz Martinez Primary Care Provider [phone] Reason for Visit * Reason Comments Vision Problem Encounter Details Date Type Department Care Team ([facility] st Contact Info) Description 02/19/2024 12:36 PM CDT - 02/19/2024 3:43 PM CDT Emergency [facility] Emergency [address] [place] [address] Robert Le, PAC [address] [place] [address] Blurred vision Discharge Disposition: Discharged to home or Selfcare [...] Sign Reading Time Taken Comments Blood Pressure 150/81 02/19/2024 3:41 PM CDT Pulse 75 02/19/2024 3:41 PM CDT Temperature 35.9 ??C (96.7 ??F) 02/19/2024 1 2:40 PM CDT Respiratory Rate 18 02/19/2024 3:41 PM CDT Oxygen Saturation 97% 02/19/2024 3:41 PM CDT Inhaled Oxygen Concentration - - Weight 104.9 kg (231 lb 4.2 oz) 024 12:40 PM CDT Height 154.9 cm (5' 1 ) 02/19/2024 12:4 0 PM CDT Body Mass Index 43.7 02/19/2024 12:40 PM CDT documented in this encounter Medications at [...] naloxone HCl (Narcan) 4 MG/0.1ML Liquid 1 [place] by Nasal route as needed (opioid overdose). [...] of this encounter ED Notes * Mirlande Coleman, RN - 02/19/2024 3:41 PM CDT Patient discharged. Discharge instructions and patient educational material reviewed with patient; questions and concerns addressed; patient verbalizes understanding, using teach back. Patient was given 0 prescriptions. Patient discharged ambulatory with steady gait to exit with no distress noted. * Mirlande Coleman RN - 02/19/2024 3:38 PM CDT Jaron Le at bedside to discuss test results and plan of care * Mirlande Coleman RN - 02/19/2024 2:50 PM CDT Patient requesting IV to be removed * Mirlande Coleman RN - 02/19/2024 2:05 PM CDT Pt medicated per provider orders. Pt educated on intended effects and side effects of medication and verbalized understanding, able to provide teach back of education. * Robert Le PAC - 02/19/2024 1:37 PM CDT Chief Complaint Patient presents with Vision Problem Elizabeth Oates is a 58 y.o. female who presents to the ED c/o headache with blurred vision for 24 hours. Headache and blurred vision are causing nausea without vomiting. No changes to speech, N/T orfocal motor weakness. No recent head trauma. No history of glaucoma. No migraine history. No eye pain. Past Medical History Positives No date: Depression No date: Thyroid disease No current facility-administered medications for this encounter. [...] daily. HYDROcodone-acetaminophen (NORCO) 5-325 MG Tablet Take 1 Tablet by mouth every 4 hours as needed for Moderate or more severe pain. 12 Tablet 0 levothyroxine (SYNTHROID) 50 MCG Tablet Take 50 mcg by mouth daily. LORazepam (ATIVAN) 1 MG Tablet Take 0.5 Tabs by mouth every 8 hours as needed for Anxiety. (Patientnot taking: Reported on 06/04/2023) 15 Tab 0 naloxone HCl (Narcan) 4 MG/0.1ML Liquid 1 [place] by Nasal route as needed (opioid overdose). [...] file Housing Stability: Not on file BP 154/83 Pulse 74 Temp 96.7 ??F (35.9 ??C) (Tympanic) Resp 18 Ht 5' 1 (1.549 m) Wt 231 lb 4.2 oz (104.9 kg) SpO2 99% BMI 43.70 kg/m?? Review of Systems Constitutional: Negative for chills, fatigue and fever. Eyes: Positive for photophobia and visual disturbance. Respiratory: Negative for cough, chest tightness, shortness of breath and wheezing. Cardiovascular: Negative for chest pain and palpitations. Gastrointestinal: Negative for abdominal pain, diarrhea, nausea and vomiting. Genitourinary: Negative for dysuria, frequency and hematuria. Musculoskeletal: Negative for arthralgias, back pain and myalgias. Skin: Negative for color change and wound. Neurological: Positive for headaches. Negative for dizziness, facial asymmetry, speech difficulty, weakness, light-headedness and numbness. All other systems reviewed and are negative. Physical Exam Vitals and nursing note reviewed. Constitutional: General: She is not in acute distress. Appearance: She is well-developed. She is not diaphoretic. HENT: Head: Normocephalic and atraumatic. Eyes: General: Right eye: No foreign body or discharge. Left eye: No foreign body or discharge. Intraocular pressure: Right eye pressure is 17 mmHg. Left eye pressure is 16 mmHg. Measurements were taken using a handheld tonometer. Comments: OS 20/50 OD 20/40 OU 20/25 Cardiovascular: Rate and Rhythm: Normal rate and regular rhythm. Heart sounds: Normal heart sounds. No murmur heard. Pulmonary: Effort: Pulmonary effort is normal. No respiratory distress. Breath sounds: Normal breath sounds. No wheezing, rhonchi or rales. Abdominal: General: Bowel sounds are normal. There is no distension. Palpations: Abdomen is soft. Tenderness: There is no abdominal tenderness. Neurological: Mental Status: She is alert and oriented to person, place, and time. GCS: GCS eye subscore is 4. GCS verbal subscore is 5. GCS motor subscore is 6. Cranial Nerves: No cranial nerve deficit, dysarthria or facial asymmetry. Sensory: Sensation is intact. No sensory deficit. Motor: No weakness. Psychiatric: Behavior: Behavior normal. CT HEAD OR BRAIN WO CONTRAST Final Result IMPRESSION: No definite evidence of acute intracranial hemorrhage. Mild cortical atrophy with periventricular white matter hypoattenuation, which is likely secondary to chronic microvascular ischemic disease. If there is continued clinical concern for acute ischemia, then further evaluation with MRI is recommended. Findings were discussed with CHEO Knox, by Dr. Black at 15:27 hours on 02/19/2024 . CBC w/ Diff Final Result CMP Final Result Thyroid Stimulating Hormone (TSH) [id number] Final Result NIH Stroke Scale Interval: Baseline Time: 1345 Administer stroke scale items in the order listed. Record performance in each category after each subscale exam. Do not go back and change scores. Follow directions provided for each exam technique. Scores should reflect what the patient does, not what the clinician thinks the patient can do. The clinician should record answers while administering the exam and work quickly. Except where indicated, the patient should not be coached (i.e., repeated requests to patient to make a special effort). 1a Level of consciousness: 0=alert; keenly responsive 1b. LOC questions: 0 Answers both questions correctly 1c. LOC commands: 0=Performs both tasks correctly 2. Best Gaze: 0=normal 3. Visual: 0=No visual loss 4. Facial Palsy: 0=Normal symmetric movement 5a. Motor left arm: 0=No drift, limb holds 90 (or 45) degrees for full 10 seconds 5b. Motor right arm: 0=No drift, limb holds 90 (or 45) degrees for full 10 seconds 6a. motor left le=No drift, limb holds 90 (or 45) degrees for full 10 seconds 6b Motor right le=No drift, limb holds 90 (or 45) degrees for full 10 seconds 7. Limb Ataxia: 0=Absent 8. Sensory: 0=Normal; no sensory loss 9. Best Language: 0 No Aphasia 10. Dysarthria: 0=Normal 11. Extinction and Inattention: 0=No abnormality Total: 0 Procedures Recent Results (from the past 24 hour(s)) POCT Glucose Result Value Ref Range GLUCOSE,BEDSIDE POCT 93 70 - 99 mg/dL CMP Result Value Ref Range SODIUM 141 136 - 145 mmol/L POTASSIUM 4.2 3.5 - 5.1 mmol/L CHLORIDE 105 98 - 107 mmol/L CO2, VENOUS 29 22 - 30 mmol/L ANION GAP 11.2 <18.0 mmol/L GLUCOSE 102 (H) 70 - 99 mg/dL BUN 7 (L) 10 - 20 mg/dL CREATININE, BLOOD 0.72 0.60 - 1.00 mg/dL BUN/CREATININE RATIO 10 (L) 12 - 20 ratio TOTAL PROTEIN 7.7 6.3 - 8.2 g/dL ALBUMIN 4.0 3.5 - 5.0 g/dL A/G RATIO 1.1 1.0 - 2.2 CALCIUM 9.2 8.7 - 10.5 mg/dL T BILI 0.4 0.2 - 1.2 mg/dL SGOT (AST) 16 5 - 34 U/L SGPT (ALT) 18 0 - 55 U/L ALKALINE PHOSPHATASE 85 40 - 150 U/L GFR, ESTIMATED >60 >=60 GFR, EST. >60 >=60 GFR, EST. NONAFRICAN >60 >=60 Thyroid Stimulating Hormone (TSH) [id number] Result Value Ref Range TSH 7.640 (H) 0.300 - 5.000 mIU/L CBC with Auto Differential Result Value Ref Range WBC 5.71 4.00 - 12.00 10(3)/mcL RBC 4.10 3.80 - 5.30 10(6)/mcL HEMOGLOBIN (HGB) 12.3 12.0 - 15.8 g/dL HEMATOCRIT (HCT) 38.0 36.0 - 47.0 % MCV 92.7 82.0 - 96.0 fL MCH 30.0 26.0 - 34.0 pg MCHC 32.4 31.0 - 36.0 g/dL PLATELET COUNT 311 140 - 440 10(3)/mcL RDW 13.0 11.8 - 15.5 % MPV 9.7 9.7 - 12.4 fL NEUTROPHILS 66.4 47.0 - 73.0 % LYMPHOCYTES 21.9 18.0 - 42.0 % MONOCYTES 5.6 4.0 - 12.0 % EOSINOPHILS 5.4 (H) 0.0 - 5.0 % BASOPHILS 0.7 0.0 - 1.0 % ABSOLUTE NEUTROPHILS 3.79 1.60 - 7.70 10(3)/mcL ABSOLUTE LYMPHOCYTES 1.25 (L) 1.30 - 3.20 10(3)/mcL ABSOLUTE MONOCYTES 0.32 0.20 - 1.00 10(3)/mcL ABSOLUTE EOSINOPHIL 0.31 0.00 - 0.40 10(3)/mcL ABSOLUTE BASOPHILS 0.04 0.00 - 0.10 10(3)/mcL NRBC PER [address] HEAD OR BRAIN WO CONTRAST (Final result) Result time 02/19/24 15:30:13 Final result by Yazan Black DO (02/19/24 15:30:13) Impression: IMPRESSION: No definite evidence of acute intracranial hemorrhage. Mild cortical atrophy with periventricular white matter hypoattenuation, which is likely secondary to chronic microvascular ischemic disease. If there is continued clinical concern for acute ischemia, then further evaluation with MRI is recommended. Findings were discussed with CHEO Knox, by Dr. Black at 15:27 hours on 02/19/2024 . Narrative: EXAM DESCRIPTION: CT HEAD OR BRAIN WO CONTRAST REASON FOR STUDY: c/o headache with blurred vision for 24 hours. Headache and blurred vision are causing nausea. No head trauma. TECHNIQUE: Axial images acquired through the brain without intravenous contrast. Images stored on PACS. Automated exposure control was used as a dose optimization technique for this examination. COMPARISON: None FINDINGS: BRAIN: There is no definite evidence of acute intracranial hemorrhage. There is no definite evidence of an extra-axial fluid collection. There is no significant midline shift or focal mass effect. The ventricles are normal in size and position. There is mild cortical atrophy with periventricular white matter hypoattenuation, which is likely secondary to chronic microvascular ischemic disease. CALVARIUM: No fracture. SINUSES/MASTOIDS: The visualized paranasal sinuses and bilateral mastoid air cells are grossly clear. ORBITS: No significant abnormality. OTHER: No other significant abnormality. THIS IS AN ELECTRONICALLY VERIFIED FINAL REPORT 02/19/2024 3:27 PM - Electronically signed by Yazan Black D.O. PS: PS Report ID: [id number] Reading Location: [id number] Medical Decision Making See HPI. Visual acuity and eye pressure completed. Eye exam is unremarkable. NIHSS 0. No concerned for CVA. TSH completed at patient request, slightly elevated. Head CT completed and negative for acute findings. Chronic changes as descrbied with recommended MRI if sxs persist. Patient would benefitfrom a dedicated eye exam and has ophthalmology appointment scheduled for this week. PCP follow up in 1-2 days also advised. Return to ED for worsening sxs. Amount and/or Complexity of Data Reviewed Labs: ordered. Radiology: ordered. Clinical Impression 1. Blurred vision Disposition: Discharge The patient remained stable throughout their ED stay. My clinical impression was discussed with thepatient/family. Labs and radiology results were reviewed with them. I gave them the opportunity to ask questions, and addressed them as completely as possible given the information available at present. The therapeutic plan was discussed, advised to take medications as instructed, instructions weregiven and the importance of primary care follow up was stressed and encouraged. The patient/family voiced understanding of the plan, indications to return, and the need for follow up. Cosigned by Brock Mason MD at 02/19/2024 5:28 PM CDT * Sindhu Smith RN - 02/19/2024 12:38 PM CDT Pt to ed with c/o bilateral eye pain and blurred vision starting yesterday. Pt states the blurred vision is worse when she puts her glasses on. Pt states it happened once before in October when they were on vacation. Pt states that she also has an upset stomach/ blurred vision makes her nauseous. Denies any other c/o, states that she is unable to get into see eye doc until next Wednesday. States that she has thyroid disease and is taking her medication as often as she can remember. documented in this encounter Plan of Treatment Not on file documented as of this encounter Procedures Procedure Name Priority Date/Time Associated Diagnosis Comments CT HEAD OR BRAIN WO CONTRAST Stat with Interpretation 02/19/2024 3:15 PM CDT CBC WITH AUTO DIFFERENTIAL STAT 02/19/2024 1:54 PM CDT THYROID STIMULATING HORMONE (TSH) STAT 02/19/2024 1:54 PM CDT CMP (COMPREHENSIVE METABOLIC PANEL) STAT 02/19/2024 1:54 PM CDT COMPLETE BLOOD COUNT (CBC) WITH DIFF STAT 02/19/2024 1:54 PM CDT POCT GLUCOSE STAT 02/19/2024 12:49 PM CDT documented in this encounter Results * CT HEAD OR BRAIN WO CONTRAST (02/19/2024 3:15 PM CDT) Anatomical Region Laterality Modality Head N/A Computed Tomogra phy 02/19/2024 3:27 PM CDT Impressions 02/19/2024 3:30 PM CDT IMPRESSION: No definite evidence of acute intracranial hemorrhage. Mild cortical atrophy with periventricular white matter hypoattenuation, which is likely secondary to chronic microvascular ischemic disease. ??If there is continued clinical concern for acute ischemia, then further evaluation with MRI is recommended. Findings were discussed with ??CHEO Knox, ??by Dr. Black at ?? 15:27 ??hours on ??02/19/2024 . Narrative 02/19/2024 3:30 PM CDT EXAM DESCRIPTION: CT HEAD OR BRAIN WO CONTRAST REASON FOR STUDY: c/o headache with blurred vision for 24 hours. ?? Headache and blurred vision are causing nausea. No head trauma. ?? TECHNIQUE: Axial images acquired through the brain without intravenous contrast. ??Images stored on PACS. ?? Automated exposure control was used as a dose optimization technique for this examination. COMPARISON: None FINDINGS: BRAIN: ??There is no definite evidence of acute intracranial hemorrhage. ??There is no definite evidence of an extra-axial fluid collection. ??There is no significant midline shift or focal mass effect. ??The ventricles are normal in size and position. ??There is mild cortical atrophy with periventricular white matter hypoattenuation, which is likely secondary to chronic microvascular ischemic disease. CALVARIUM: ?? No fracture. SINUSES/MASTOIDS: ?? The visualized paranasal sinuses and bilateral mastoid air cells are grossly clear. ORBITS: ?? No significant abnormality. OTHER: ?? No other significant abnormality. THIS IS AN ELECTRONICALLY VERIFIED FINAL REPORT 02/19/2024 3:27 PM - Electronically signed by ??Yazan Black D.O. PS: PS D: ??02/19/2024 3:27 PM T: ??02/19/2024 3:27 PM Report ID: [id number] Reading Location: ??[id number] Procedure Note Yazan Black DO - 02/19/2024 EXAM DESCRIPTION: CT HEAD OR BRAIN WO CONTRAST REASON FOR STUDY: c/o headache with blurred vision for 24 hours. Headache and blurred vision are causing nausea. No head trauma. TECHNIQUE: Axial images acquired through the brain without intravenous contrast. Images stored on PACS. Automated exposure control was used as a dose optimization technique for this examination. COMPARISON: None FINDINGS: BRAIN: There is no definite evidence of acute intracranial hemorrhage. There is no definite evidence of an extra-axial fluid collection. There is no significant midline shift or focal mass effect. The ventricles are normal in size and position. There is mild cortical atrophy with periventricular white matter hypoattenuation, which is likely secondary to chronic microvascular ischemic disease. CALVARIUM: No fracture. SINUSES/MASTOIDS: The visualized paranasal sinuses and bilateral mastoid air cells are grossly clear. ORBITS: No significant abnormality. OTHER: No other significant abnormality. THIS IS AN ELECTRONICALLY VERIFIED FINAL REPORT 02/19/2024 3:27 PM - Electronically signed by Yazan Black D.O. PS: PS Report ID: [id number] Reading Location: [id number] IMPRESSION: No definite evidence of acute intracranial hemorrhage. Mild cortical atrophy with periventricular white matter hypoattenuation, which is likely secondary to chronic microvascular ischemic disease. If there is continued clinical concern for acute ischemia, then further evaluation with MRI is recommended. Findings were discussed with CHEO Knox, by Dr. Black at 15:27 hours on 02/19/2024 . Robert Le PAC IMG CT ORDERABLES Fi nal Result * (ABNORMAL) CBC with Auto Differential (02/19/2024 1:54 PM CDT) WBC 5.71 4.00 - 12.00 10(3)/mcL 02/19/2024 2:06 PM CDT [facility] RBC 4.10 3.80 - 5.30 10(6)/mcL 02/19/2024 2:06 PM CDT [facility] HEMOGLOBIN (HGB) 12.3 12.0 - 15.8 g/dL 02/19/2024 2:06 PM CDT [facility] HEMATOCRIT (HCT) 38.0 36.0 - 47.0 % 02/19/2024 2:06 PM CDT [facility] MCV 92.7 82.0 - 96.0 fL 02/19/2024 2:06 PM CDT [facility] MCH 30.0 26.0 - 34.0 pg 02/19/2024 2:06 PM CDT [facility] MCHC 32.4 31.0 - 36.0 g/dL 02/19/2024 2:06 PM CDT [facility] PLATELET COUNT 311 140 - 440 10(3)/mcL 02/19/2024 2:06 PM CDT [facility] RDW 13.0 11.8 - 15.5 % 02/19/2024 2:06 PM CDT [facility] MPV 9.7 9.7 - 12.4 fL 02/19/2024 2:06 PM CDT [facility] NEUTROPHILS 66.4 47.0 - 73.0 % 02/19/2024 2:06 PM CDT [facility] LYMPHOCYTES 21.9 18.0 - 42.0 % 02/19/2024 2:06 PM CDT [facility] MONOCYTES 5.6 4.0 - 12.0 % 02/19/2024 2:06 PM CDT [facility] EOSINOPHILS 5.4(H) 0.0 - 5.0 % 02/19/2024 2:06 PM CDT [facility] BASOPHILS 0.7 0.0 - 1.0 % 02/19/2024 2:06 PM CDT [facility] ABSOLUTE NEUTROPHILS 3.79 1.60 - 7.70 10(3)/[facility] 02/19/2024 2:06 PM CDT [facility] ABSOLUTE LYMPHOCYTES 1.25(L) 1.30 - 3.20 10(3)/[facility] 02/19/2024 2:06 PM CDT [facility] ABSOLUTE MONOCYTES 0.32 0.20 - 1.00 10(3)/[facility] 02/19/2024 2:06 PM CDT [facility] ABSOLUTE EOSINOPHIL 0.31 0.00 - 0.40 10(3)/[facility] 02/19/2024 2:06 PM CDT [facility] ABSOLUTE BASOPHILS 0.04 0.00 - 0.10 10(3)/[facility] 02/19/2024 2:06 PM CDT [facility] NRBC PER 100 WBC 0 02/19/20 2:06 PM CDT [facility] Blood Venipuncture / Unknown 02/19/2024 1:54 PM CDT 02/19/2024 2:04 PM CDT us Robert Le PAC HEMATOLOGY ORDERABLE S Final Result [facility] [address] [place] [address] * (ABNORMAL) Thyroid Stimulating Hormone (TSH) [id number] (02/19/2024 1:54 PM CDT) TSH 7.640(H) 0.300 - 5.000 mIU/L 02/19/2024 2:43 PM CDT [facility] Blood Venipuncture / Unknown 02/19/2024 1:54 PM CDT 02/19/2024 2:04 PM CDT us Robert Alvarez Rey PAC CHEMISTRY ORDERABLES Final Result [facility] [address] [place] [address] * (ABNORMAL) CMP (02/19/2024 1:54 PM CDT) SODIUM 141 136 - 145 mmol/L 02/19/2024 2:25 PM CDT [facility] POTASSIUM 4.2 3.5 - 5.1 mmol/L 02/19/2024 2:25 PM CDT [facility] CHLORIDE 105 98 - 107 mmol/L 02/19/2024 2:25 PM CDT [facility] CO2, VENOUS 29 22 - 30 mmol/L 02/19/2024 2:25 PM CDT [facility] ANION GAP 11.2 <18.0 mmol/L 02/19/2024 2:25 PM CDT [facility] GLUCOSE 102(H) 70 - 99 mg/dL 02/19/2024 2:25 PM CDT [facility] BUN 7(L) 10 - 20 mg/dL 02/19/2024 2:25 PM CDT [facility] CREATININE, BLOOD 0.72 0.60 - 1.00 mg/dL 02/19/2024 2:25 PM CDT [facility] BUN/CREATININE RATIO 10(L) 12 - 20 ratio 02/19/2024 2:25 PM CDT [facility] TOTAL PROTEIN 7.7 6.3 - 8.2 g/dL 02/19/2024 2:25 PM CDT [facility] ALBUMIN 4.0 3.5 - 5.0 g/dL 02/19/2024 2:25 PM CDT [facility] A/G RATIO 1.1 1.0 - 2.2 02/19/2024 2:25 PM CDT [facility] CALCIUM 9.2 8.7 - 10.5 mg/dL 02/19/2024 2:25 PM CDT [facility] T BILI 0.4 0.2 - 1.2 mg/dL 02/19/2024 2:25 PM CDT [facility] SGOT (AST) 16 5 - 34 U/L 02/19/2024 2:25 PM CDT [facility] SGPT (ALT) 18 0 - 55 U/L 02/19/2024 2:25 PM CDT [facility] ALKALINE PHOSPHATASE 85 40 - 150 U/L 02/19/2024 2:25 PM CDT [facility] GFR, ESTIMATED >60 >=60 02/19/2024 2:25 PM CDT [facility] Comment: Creatinine Clearance is the preferred criteria for selecting drug dose adjustments in renally impaired patients. ??The GFR is provided as additional pertinent clinical information. GFR is reported in mL/min/1.73 sq m. Calculation based on the Chronic Kidney Disease Epidemiology Collaboration (CKD- EPI) equation refit without adjustment for race. GFR, EST. >60 >=60 024 2:25 PM CDT [facility] GFR, EST. NONAFRICAN >60 >=60 02/19/2024 2:25 PM CDT [facility] Blood Venipuncture / Unknown 02/19/2024 1:54 PM CDT 02/19/2024 2:04 PM CDT Robert Le PAC CHEMISTRY ORDERABLES Final Result [facility] [address] [place] [address] * POCT Glucose (02/19/2024 12:49 PM CDT) Pathologist [facility] GLUCOSE,BEDSIDE POCT 93 70 - 99 mg/dL 02/19/2024 12:55 PM CDT [facility] Blood 02/19/2024 12:4 9 PM CDT 02/19/2024 12:55 PM CDT us None Provider POINT OF CARE TESTING Final Resu lt [facility] [address] [place] [address] documented in this encounter Visit Diagnoses Diagnosis Blurred vision- Primary Other specified visual disturbances documented in this encounter Administered Medications Inactive Administered Medications - up to 3 most recent administrations Medication Order MAR Action Action Date Dose Rate Site ketorolac (TORADOL) injection 15 mg 15 mg, Intravenous, ONCE, 1 dose, On 02/19/24 at 1400 Given 02/19/2024 1:54 PM CDT 15 mg metoclopramide (REGLAN) tablet 10 mg 10 mg, Oral, ONCE, 1 dose, On 02/19/24 at 1400 Given 02/19/2024 1:54 PM CDT 10 mg proparacaine (ALCAINE) 0.5 % ophthalmic solution 2 Drop 2 Drop, Both Eyes, ONCE, 1 dose, On 02/19/24 at 1400 Given by Other 02/19/2024 1:56 PM CDT 2 Drops documented in this encounter Active and Recently Administered Medications Times are shown in CDT. Scheduled Medication Order 02/17/2024 02/18/2024 02/19/2024 ketorolac (TORADOL) injection 15 mg (COMPLETED) 15 mg, Intravenous, ONCE, 1 dose, On 02/19/24 at 1400 1354 (Given - Provid er: Sindhu Smith RN) metoclopramide (REGLAN) tablet 10 mg (COMPLETED) 10 mg, Oral, ONCE, 1 dose, On 02/19/24 at 1400 1354 (Given - Provid er: Sindhu Smith RN) proparacaine (ALCAINE) 0.5 % ophthalmic solution 2 Drop (COMPLETED) 2 Drop, Both Eyes, ONCE, 1 dose, On 02/19/24 at 1400 1356 (Given by Other - Provider: Sindhu Smith RN) documented in this encounter Care Teams Warp Knitter Helper Relationship Specialty Start Date End Date Tomasz Martinez PAC [address] [place] [address] PCP - General Physician Tractor Drill Operator 06/25/20 documented as of this encounter
--- OUTSIDE RECORDS SUMMARY | 2024-07-21 10:46 | XMS_ITS | Encounter Summary ---
Author Organization [facility] Address [address] [place] [address] Phone Care Team Providers Care Non Licensed Operator Name Role Phone Tomasz Martinez Primary Care Provider [phone] Encounter Details Date Type Department Care Team (Late st Contact Info) Description 04/21/2024 Transcribe Orders [facility] Central Scheduling [address] [place] [address] Piedad Jorge, MARKETING RESEARCH INTERN, BOOK AUTHOR [address] [address] Social History Tobacco Use Types Packs/Day Years [...] on filedocumented in this encounter Care Teams Non Licensed Operator Relationship Specialty Start Date End Date Tomasz Martinez PAC [address] [place] [address] PCP - General Physician Shank Cementer Hand 06/25/20 documented as of this encounter
--- OUTSIDE RECORDS SUMMARY | 2024-07-21 10:46 | XMS_ITS | Encounter Summary ---
Author Organization [facility] Care Team Providers Care Ehr Trainer Name Role Phone Tomasz Martinez Primary Care Provider [phone] Encounter Details Date Type Department Care Team (Latest Contact Info) Description 04/30/2024 Travel Social History Tobacco Use Types Packs/Day [...] on filedocumented in this encounter Care Teams Ehr Trainer Relationship Specialty Start Date End Date Tomasz Martinez [address] [place] [address] PCP - General Physician Land Department Head 06/25/20 documented as of this encounter
--- OUTSIDE RECORDS SUMMARY | 2024-07-21 10:46 | XMS_ITS | Encounter Summary ---
Author Organization [facility] Care Team Providers Care Bevel Gear Generator Operator Name Role Phone Tomasz Martinez Primary Care Provider [phone] Encounter Details Date Type Department Care Team (Latest Contact Info) Description 04/06/2024 Travel Social History Tobacco Use Types Packs/Day [...] on filedocumented in this encounter Care Teams Bevel Gear Generator Operator Relationship Specialty Start Date End Date Tomasz Martinez [address] [place] [address] PCP - General Physician Tractor Mechanic 06/25/20 documented as of this encounter
--- OUTSIDE RECORDS SUMMARY | 2024-07-21 10:46 | XMS_ITS | Encounter Summary ---
Author Organization [facility] Address [address] [place] [address] Phone Care Team Providers Care Parts Clerk Name Role Phone Tomasz Martinez Primary Care Provider [phone] Reason for Referral * Radiology Services (Routine) - Open Specialty Diagnoses / Procedures Referred By Carolina coombs Referred To Contact Radiology Diagnoses Encounter for screening mammogram for malignant neoplasm of breast Procedures [facility] BREAST LIMITED [facility]CCO Tomasz Martinez, PAC [address] [place] [address] Phone: tel: fax: Referral ID Status Reason Start Date Expiration Date Visits Re quested Visits Authorized [id number] Open 03/24/2024 1 1 * Radiology Services (Routine) - Authorized Specialty Diagnoses / Procedures Referred By Carolina coombs Referred To Contact Radiology Diagnoses Encounter for screening mammogram for malignant neoplasm of breast Procedures [facility] SCREENING BILATERAL DIGITAL W CAD W [place] Tomasz Martinez, PAC [address] [place] [address] Phone: tel: fax: Referral ID Status Reason Start Date Expiration Date V isits Requested Visits Authorized [id number] Authorized 03/24/2024 1 1 Encounter Details Date Type Department Care Team (Late st Contact Info) Description 03/24/2024 Transcribe Orders [facility] Central Scheduling [address] [place] [address] Tomasz Martinez [address] [place] [address] Encounter for screening mammogram for malignant neoplasm of breast Social History Tobacco Use Types Packs/Day Years [...] as of this encounter Plan of Treatment Scheduled Orders Name Type Priority Associated Diagnoses Orde r Schedule [facility] SCREENING BILATERAL DIGITAL W CAD W [place] Imaging Routine Encounter for screening mammogram for malignant neoplasm of breast Expected: 03/24/2024, Expires: 03/24/2025 [facility] US BREAST LIMITED ROCCO Imaging Routine Encounter for screening mammogram for malignant neoplasm of breast Expected: 03/24/2024, Expires: 03/24/2025 documented as of this encounter Visit Diagnoses Diagnosis Encounter for screening mammogram for malignant neoplasm of breast Other screening mammogram documented in this encounter Care Teams Parts Clerk Relationship Specialty Start Date End Date Tomasz Martinez [address] [place] [address] PCP - 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
--- OUTSIDE RECORDS SUMMARY | 2024-07-21 10:46 | XMS_ITS | Encounter Summary ---
Author Organization [facility] Address [address] [place] [address] Phone Care Team Providers Care French Professor Name Role Phone Tomasz Martinez Primary Care Provider Reason for Visit * Reason Comments Abdominal Pain Encounter Details Date Type Department Care Team ([facility] st Contact Info) Description 04/30/2024 1:23 PM CDT - 04/30/2024 4:46 PM CDT Emergency [facility] Emergency [address] [place] [id number] Robert Le, PAC #[address] [place] [address] Mobile cecum Discharge Disposition: Discharged to home [...] Mass Index 45.2 04/30/2024 1:28 PM CDT documented in this encounter Medications [...] naloxone HCl (Narcan) 4 MG/0.1ML Liquid 1 Bristol by Nasal route as needed (opioid overdose). administer for symptoms of overdose (severe sleepiness, breathing problems, not responsive). Call 911. May use additional dose to repeat 1 spray intranasally in 2-3 minutes if needed. 2 Each 11/11/2022 naproxen (NAPROSYN) 500 MG Tablet Take 1 Tablet by mouth 2 times daily as needed for Moderate or more severe pain. 20 Tablet 01/24/2021 omeprazole (PriLOSEC) 20 MG CAPSULE DELAYED RELEASEIndicatio ns:Helicobacter pylori Take 1 Capsule by mouth daily. Indications: Helicobacter pylori Bacteria 14 Capsule 04/30/2024 ondansetron (ZOFRAN) 4 MG Tablet Take 1-2 Tablets by mouth every 8 hours as needed for Nausea - 1st line. 10 Tablet 07/12/2023 ondansetron (ZOFRAN) 4 MG Tablet Take 1-2 Tablets by mouth every 8 hours as needed for Nausea - 1st line. 10 Tablet 05/23/2022 traMADol (ULTRAM) 50 MG TabletIndication s:Lower abdominal pain Take 1 Tablet by mouth every 8 hours as needed for Moderate or more severe pain. 12 Tablet 04/30/2024 amoxicillin (AMOXIL) 500 MG CapsuleIndicatio ns:Intra-Abdomin al Infection Take 2 Capsules by mouth in the morning and at bedtime for 14 days. Indications: Infection Within the Abdomen 56 Capsule 04/30/2024 clarithromycin (BIAXIN) 500 MG TabletIndication s:Intra-Abdomina l Infection Take 1 Tablet by mouth 2 times daily for 14 days. Indications: Infection Within the Abdomen 28 Tablet 04/30/2024 documented as of this encounter ED Notes * Sindhu Smith RN - 04/30/2024 4:45 PM CDT Patient discharged. Discharge instructions and patient educational material reviewed with patient; questions and concerns addressed; patient verbalizes understanding, using teach back. Patient was given 4 prescriptions. Patient was informed no drinking alcohol, driving or operating heavy machinery while taking narcotics or muscle relaxants. Patient discharged per ambulatory mode with spouse as responsible republican. SL D/C'ed with Emmett cath intact. Pt is alert and oriented x 4, vss, no distress noted. * Sindhu Smith RN - 04/30/2024 4:00 PM CDT Patient is resting in room with call light at bedside. Patient informed about wait time and verbalizes understanding. Patient denies needs at this time and verbalizes understanding that RN will complete hourly rounding. * Sindhu Smith RN - 04/30/2024 3:00 PM CDT Patient is resting in room with call light at bedside. Patient informed about wait time and verbalizes understanding. Patient denies needs at this time and verbalizes understanding that RN will complete hourly rounding. * Sindhu Smith RN - 04/30/2024 2:00 PM CDT Patient is resting in room with call light at bedside. Patient informed about wait time and verbalizes understanding. Patient denies needs at this time and verbalizes understanding that RN will complete hourly rounding. * Robert Le, CRISSY - 04/30/2024 1:53 PM CDT Chief Complaint Patient presents with Abdominal Pain Elizabeth Oates is a 58 y.o. female who presents to the ED c/o lower quadrant abd pain x 2 weeks with intermittent nausea without vomiting. NBNB diarrhea reported 2 days ago. Patient states initiallyabd pain was epigastric. She had an outpatient esophogram 2 days ago showing small hiatal hernia, otherwise unremarkable and she was found to be positive for H pylori. No fever. Patient has not yet been treated for h pylori. No urinary sxs. Past Medical History Positives No date: Depression No date: Thyroid disease No current facility-administered medications for this encounter. Current Outpatient Medications Medication Sig Dispense Refill albuterol 108 (90 Base) MCG/ACT Aerosol Solution take 2 Puffs by inhalation every 6 hours as neededfor Wheezing. (Patient not taking: Reported on 06/04/2023) 8 g 0 amoxicillin (AMOXIL) 500 MG Capsule Take 2 Capsules by mouth in the morning and at bedtime for 14 days. Indications: Infection Within the Abdomen 56 Capsule 0 busPIRone (BUSPAR) 5 MG Tablet Take 5 mg by mouth. clarithromycin (BIAXIN) 500 MG Tablet Take 1 Tablet by mouth 2 times daily for 14 days. Indications: Infection Within the Abdomen 28 Tablet 0 escitalopram (LEXAPRO) 10 MG Tablet Take 10 [...] naloxone HCl (Narcan) 4 MG/0.1ML Liquid 1 Bristol by Nasal route as needed (opioid overdose). [...] taking: Reported on 06/04/2023) 20 Tablet 0 omeprazole (PriLOSEC) 20 MG CAPSULE DELAYED RELEASE Take 1 Capsule by mouth daily. Indications: Helicobacter pylori Bacteria 14 Capsule 0 ondansetron (ZOFRAN) 4 MG Tablet Take 1-2 Tablets by mouth every 8 hours as needed for Nausea - 1stline. 10 Tablet 0 ondansetron (ZOFRAN) 4 MG Tablet Take 1-2 Tablets by mouth every 8 hours as needed for Nausea - 1stline. (Patient not taking: Reported on 06/04/2023) 10 Tablet 0 traMADol (ULTRAM) 50 MG Tablet Take 1 Tablet by mouth every 8 hours as needed for Moderate or more severe pain. 12 Tablet 0 No Known Allergies Past Medical [...] Used Substance and Sexual Activity Alcohol use: Not Currently Comment: rarely Drug use: No Sexual activity: [...] file Housing Stability: Not on file BP (!) 148/94 Pulse (!) 118 Temp 98.1 ??F (36.7 ??C) (Tympanic) Resp 20 Ht 5' 1 (1.549 m) Wt 239 lb 3.2 oz (108.5 kg) SpO2 96% BMI 45.20 kg/m?? Review of Systems Constitutional: Negative for chills, fatigue and fever. Respiratory: Negative for cough, chest tightness, shortness of breath and wheezing. Cardiovascular: Negative for chest pain and palpitations. Gastrointestinal: Positive for abdominal pain, diarrhea and nausea. Genitourinary: Negative for dysuria, frequency, hematuria and urgency. Neurological: Negative for dizziness, light-headedness and headaches. All other systems reviewed and are negative. Physical Exam Vitals and nursing note reviewed. Constitutional: General: She is not in acute distress. Appearance: She is well-developed. She is obese. She is not diaphoretic. HENT: Head: Normocephalic and atraumatic. Eyes: Pupils: Pupils are equal, round, and reactive to light. Cardiovascular: Rate and Rhythm: Normal rate and regular rhythm. Heart sounds: Normal heart sounds. No murmur heard. Pulmonary: Effort: Pulmonary effort is normal. No respiratory distress. Breath sounds: Normal breath sounds. No wheezing, rhonchi or rales. Abdominal: General: Bowel sounds are normal. There is no distension. Palpations: Abdomen is soft. There is no mass. Tenderness: There is abdominal tenderness in the right lower quadrant, suprapubic area and left lower quadrant. There is no guarding or rebound. Musculoskeletal: General: No tenderness. Normal range of motion. Skin: General: Skin is warm and dry. Neurological: Mental Status: She is alert and oriented to person, place, and time. Cranial Nerves: No cranial nerve deficit. Psychiatric: Behavior: Behavior normal. CT ABDOMEN PELVIS W/ CONTRAST Final Result IMPRESSION: 1. Dense column of contrast within short segmental bowel in the right lower quadrant/right hemipelvis, likely the cecum with extensive streak artifact limiting evaluation at that segment . Please note that the cecum was positioned in the right upper quadrant on prior CT on 04/06/2024. These findings could reflect mobile cecum. 2. No CT evidence of bowel obstruction or perforation. CBC w/ Diff Final Result CMP Final Result Lipase Final Result Urinalysis w/ Reflex Final Result Extra Tubes Final Result Procedures Recent Results (from the past 24 hour(s)) CMP Result Value Ref Range SODIUM 140 136 - 145 mmol/L POTASSIUM 3.6 3.5 - 5.1 mmol/L CHLORIDE 105 98 - 107 mmol/L CO2, VENOUS 27 22 - 30 mmol/L ANION GAP 11.6 <18.0 mmol/L GLUCOSE 91 70 - 99 mg/dL BUN 13 10 - 20 mg/dL CREATININE, BLOOD 0.83 0.60 - 1.00 mg/dL BUN/CREATININE RATIO 16 12 - 20 ratio TOTAL PROTEIN 8.2 6.3 - 8.2 g/dL ALBUMIN 4.3 3.5 - 5.0 g/dL A/G RATIO 1.1 1.0 - 2.2 CALCIUM 9.9 8.7 - 10.5 mg/dL T BILI 0.3 0.2 - 1.2 mg/dL SGOT (AST) 26 5 - 34 U/L SGPT (ALT) 35 0 - 55 U/L ALKALINE PHOSPHATASE 78 40 - 150 U/L GFR, ESTIMATED >60 >=60 GFR, EST. >60 >=60 GFR, EST. NONAFRICAN >60 >=60 Lipase Result Value Ref Range LIPASE 15 8 - 78 U/L Urinalysis w/ Reflex Result Value Ref Range SPECIFIC GRAVITY 1.020 1.003 - 1.030 URINE PH 6.0 5.0 - 9.0 WBC ESTERASE 25 /ul (A) Negative NITRITE Negative Negative PROTEIN, RANDOM URINE 15 mg/dL (A) Negative URINE GLUCOSE, QUAL Negative Negative URINE KETONES Negative Negative UROBILINOGEN Normal Normal mg/dL URINE BLOOD Negative Negative eden/ul URINALYSIS COLOR Yellow URINALYSIS CLARITY Slightly Cloudy WBC (Urine) 0-5 Negative, 0-5 /hpf URINE RBC'S 0-2 Negative, 0-2 /hpf EPITHELIAL CELLS Small amount /lpf BACTERIA, URINE Few (A) Negative /hpf CBC with Auto Differential Result Value Ref Range WBC 5.63 4.00 - 12.00 10(3)/mcL RBC 4.29 3.80 - 5.30 10(6)/mcL HEMOGLOBIN (HGB) 12.9 12.0 - 15.8 g/dL HEMATOCRIT (HCT) 40.0 36.0 - 47.0 % MCV 93.2 82.0 - 96.0 fL MCH 30.1 26.0 - 34.0 pg MCHC 32.3 31.0 - 36.0 g/dL PLATELET COUNT 329 140 - 440 10(3)/mcL RDW 13.1 11.8 - 15.5 % MPV 10.0 9.7 - 12.4 fL NEUTROPHILS 59.1 47.0 - 73.0 % LYMPHOCYTES 27.2 18.0 - 42.0 % MONOCYTES 7.5 4.0 - 12.0 % EOSINOPHILS 5.7 (H) 0.0 - 5.0 % BASOPHILS 0.5 0.0 - 1.0 % ABSOLUTE NEUTROPHILS 3.33 1.60 - 7.70 10(3)/mcL ABSOLUTE LYMPHOCYTES 1.53 1.30 - 3.20 10(3)/mcL ABSOLUTE MONOCYTES 0.42 0.20 - 1.00 10(3)/mcL ABSOLUTE EOSINOPHIL 0.32 0.00 - 0.40 10(3)/mcL ABSOLUTE BASOPHILS 0.03 0.00 - 0.10 10(3)/mcL NRBC PER [address] W[address] ABDOMEN PELVIS W/ CONTRAST (Final result) Result time 04/30/24 16:21:24 Final result by Sam Herron MD (04/30/24 16:21:24) Impression: IMPRESSION: 1. Dense column of contrast within short segmental bowel in the right lower quadrant/right hemipelvis, likely the cecum with extensive streak artifact limiting evaluation at that segment . Please note that the cecum was positioned in the right upper quadrant on prior CT on 04/06/2024. These findings could reflect mobile cecum. 2. No CT evidence of bowel obstruction or perforation. Narrative: EXAM DESCRIPTION: CT ABDOMEN PELVIS W/ CONTRAST [...] Sam Herron M.D. AT: AT Report ID: [id number] Reading Location: [id number] Medical Decision Making See HPI. Abd labs unremarkable. CT abd/pelvis completed showing probable mobile cecum without otheracute finding. Analgesia provided. Will treat H. Pylori infection. Amount and/or Complexity of Data Reviewed Labs: ordered. Radiology: ordered. Clinical Impression 1. Mobile cecum 2. H. pylori infection 3. Lower abdominal pain Disposition: Discharge The patient remained stable throughout [...] up. Cosigned by Brock Mason MD at 04/30/2024 6:23 PM CDT * Benigno Sharpe RN - 04/30/2024 1:32 PM CDT pt c/o's ongoing lower abd pain for the last 2 weeks. she is nauseated without emesis. she last haddiarrhea 2 nights ago. she states she had out pt testing yesterday in radiology and was told they do not know what is causing her pain. pt is alert and follows commands well. resp unlabored. documented in this encounter Miscellaneous Notes * PatientPass Patient Instructions - Robert Le, CRISSY - 04/30/2024 4:31 PM CDT Images from the original note were not included. Patient Education Table of Contents Helicobacter Pylori Infection To view videos and all your education online visit, [email or web address] or scan this QR code with your smartphone. Access to this content will in one year. Helicobacter Pylori Infection Helicobacter pylori infection is a bacterial infection in the stomach. Long-term (chronic) infection can cause stomach irritation (gastritis), ulcers in the stomach (gastric ulcers), and ulcers in the upper part of the intestine (duodenal ulcers). Having this infection may also increase your risk of stomach cancer and a type of white blood cell cancer (lymphoma) that affects the stomach. What are the causes? This infection is caused by the Helicobacter pylori (H. pylori) bacteria. Many healthy people have this bacteria in their stomach lining. The bacteria may also spread from person to person through contact with stool (feces) or saliva. It is not known why some people develop ulcers, gastritis, or cancer from the bacteria. What increases the risk? You are more likely to develop this condition if you: Have family members with the infection. Live with many other people, such as in a dormitory. What are the signs or symptoms? Most people with this infection do not have any symptoms. If you do have symptoms, they may include: Heartburn. Stomach pain. Nausea. Vomiting. The vomit may be bloody because of ulcers. Loss of appetite. Bad breath. How is this diagnosed? This condition may be diagnosed based on: Your symptoms and medical history. A physical exam. Blood tests. Stool tests. A breath test. A procedure that involves placing a tube with a camera on the end of it down your throat to examineyour stomach and upper intestine (upper endoscopy). Removing and testing a tissue sample from the stomach lining (biopsy). A biopsy may be taken duringan upper endoscopy. How is this treated? This condition is treated by taking a combination of medicines (triple therapy) for several weeks. Triple therapy includes one medicine to reduce the amount of acid in your stomach and two types of antibiotic medicines. This treatment may reduce your risk of cancer. You may need to be tested for H. pylori again after treatment. In some cases, the treatment may need to be repeated if your treatment did not get rid of all the bacteria. Follow these instructions at home: Take [id number]-[id number] and prescription medicines only as told by your health care provider. Take your antibiotic medicine as told by your health care provider. Do not stop taking the antibiotics even if you start to feel better. Return to your normal activities as told by your health care provider. Ask your health care provider what activities are safe for you. Take steps to prevent future infections: ? Wash your hands often with soap and water for at least 20 seconds. If soap and water are not available, use hand pole classifier. ? Do not eat food or drink water that may have had contact with stool or saliva. Keep all follow-up visits. This is important. You may need tests to make sure your treatment worked. Contact a health care provider if your symptoms: Do not get better with treatment. Return after treatment. Summary Helicobacter pylori infection is a stomach infection caused by the Helicobacter pylori (H. pylori) bacteria. This infection can cause stomach irritation (gastritis), ulcers in the stomach (gastric ulcers), and ulcers in the upper part of the intestine (duodenal ulcers). This condition is treated by taking a combination of medicines (triple therapy) for several weeks. Take your antibiotic medicine as told by your health care provider. Do not stop taking the antibiotics even if you start to feel better. This information is not intended to replace advice given to you by your health care provider. Make sure you discuss any questions you have with your health care provider. Document Released: 2016-11-09 Document Updated: 2022-02-04 Document Reviewed: 2022-02-04 ElseGVISP 1 Patient Education ? 2023 [employer]. documented in this encounter Plan of Treatment Not on file documented as of this encounter Procedures Procedure Name Priority Date/Time Associated Diagnosis Comments CT ABDOMEN PELVIS W/ CONTRAST Stat with Interpretation 04/30/2024 3:30 PM CDT URINALYSIS REFLEX IF INDICATED BY ABNORMAL RESULTS STAT 04/30/2024 1:45 PM CDT CBC WITH AUTO DIFFERENTIAL STAT 04/30/2024 1:45 PM CDT LIPASE STAT 04/30/2024 1:45 PM CDT CMP (COMPREHENSIVE METABOLIC PANEL) STAT 04/30/2024 1:45 PM CDT COMPLETE BLOOD COUNT (CBC) WITH DIFF STAT 04/30/2024 1:45 PM CDT EXTRA TUBES STAT 04/30/2024 1:42 PM CDT GOLD TOP TUBE STAT 04/30/2024 1:42 PM CDT BLUE TOP TUBE STAT 04/30/2024 1:42 PM CDT documented in this encounter Results * CT ABDOMEN PELVIS W/ CONTRAST [...] PM T: ??04/30/2024 4:18 PM Report ID: [id number] Reading Location: [id number] Procedure Note Sam Herron MD - 04/30/2024 [...] Sam Herron M.D. AT: AT Report ID: [id number] Reading Location: [id number] IMPRESSION: 1. Dense column of contrast within short segmental bowel in the right lower quadrant/right hemipelvis, likely the cecum with extensive streak artifact limiting evaluation at that segment . Please note that the cecum was positioned in the right upper quadrant on prior CT on 04/06/2024. These findings could reflect mobile cecum. 2. No CT evidence of bowel obstruction or perforation. us Robert Le PAC IMG CT ORDERABLES Fi nal Result * (ABNORMAL) CBC with Auto Differential (04/30/2024 1:45 PM CDT) WBC 5.63 4.00 - 12.00 10(3)/mcL 04/30/2024 2:00 PM CDT [facility] RBC 4.29 3.80 - 5.30 10(6)/mcL 04/30/2024 2:00 PM CDT [facility] HEMOGLOBIN (HGB) 12.9 12.0 - 15.8 g/dL 04/30/2024 2:00 PM CDT [facility] HEMATOCRIT (HCT) 40.0 36.0 - 47.0 % 04/30/2024 2:00 PM CDT [facility] MCV 93.2 82.0 - 96.0 fL 04/30/2024 2:00 PM CDT [facility] MCH 30.1 26.0 - 34.0 pg 04/30/2024 2:00 PM CDT [facility] MCHC 32.3 31.0 - 36.0 g/dL 04/30/2024 2:00 PM CDT [facility] PLATELET COUNT 329 140 - 440 10(3)/mcL 04/30/2024 2:00 PM CDT [facility] RDW 13.1 11.8 - 15.5 % 04/30/2024 2:00 PM CDT [facility] MPV 10.0 9.7 - 12.4 fL 04/30/2024 2:00 PM CDT [facility] NEUTROPHILS 59.1 47.0 - 73.0 % 04/30/2024 2:00 PM CDT [facility] LYMPHOCYTES 27.2 18.0 - 42.0 % 04/30/2024 2:00 PM CDT [facility] MONOCYTES 7.5 4.0 - 12.0 % 04/30/2024 2:00 PM CDT [facility] EOSINOPHILS 5.7(H) 0.0 - 5.0 % 04/30/2024 2:00 PM CDT [facility] BASOPHILS 0.5 0.0 - 1.0 % 04/30/2024 2:00 PM CDT [facility] ABSOLUTE NEUTROPHILS 3.33 1.60 - 7.70 10(3)/mcL 04/30/2024 2:00 PM CDT [facility] ABSOLUTE LYMPHOCYTES 1.53 1.30 - 3.20 10(3)/[facility] 04/30/2024 2:00 PM CDT [facility] ABSOLUTE MONOCYTES 0.42 0.20 - 1.00 10(3)/[facility] 04/30/2024 2:00 PM CDT [facility] ABSOLUTE EOSINOPHIL 0.32 0.00 - 0.40 10(3)/[facility] 04/30/2024 2:00 PM CDT [facility] ABSOLUTE BASOPHILS 0.03 0.00 - 0.10 10(3)/[facility] 04/30/2024 2:00 PM CDT [facility] NRBC PER 100 WBC 0 04/30/20 24 2:00 PM CDT [facility] Blood Venipuncture / Unknown 04/30/2024 1:45 PM CDT 04/30/2024 1:55 PM CDT us Robert Le PAC HEMATOLOGY ORDERABLE S Final Result [facility] [address] [place] [address] * (ABNORMAL) Urinalysis w/ Reflex (04/30/2024 1:45 PM CDT) SPECIFIC GRAVITY 1.020 1.003 - 1.030 04/30/2024 2:45 PM CDT [facility] URINE PH 6.0 5.0 - 9.0 04/30/2024 2:45 PM CDT [facility] WBC ESTERASE 25 /ul(A) Negative 04/30/2024 2:45 PM CDT [facility] NITRITE Negative Negative 04/30/2024 2:45 PM CDT [facility] PROTEIN, RANDOM URINE 15 mg/dL(A) Negative 04/30/2024 2:45 PM CDT [facility] URINE GLUCOSE, QUAL Negative Negative 04/30/2024 2:45 PM CDT [facility] URINE KETONES Negative Negative 04/30/2024 2:45 PM CDT [facility] UROBILINOGEN Normal Normal mg/dL 04/30/2024 2:45 PM CDT [facility] URINE BLOOD Negative Negative eden/ul 04/30/2024 2:45 PM CDT [facility] URINALYSIS COLOR Yellow 04/30/20 2:45 PM CDT [facility] URINALYSIS CLARITY Slightly Cloudy 04/30/2024 2:45 PM CDT [facility] WBC (Urine) 0-5 Negative, 0-5 /hpf 04/30/2024 2:45 PM CDT [facility] URINE RBC'S 0-2 Negative, 0-2 /hpf 04/30/2024 2:45 PM CDT [facility] EPITHELIAL CELLS Small amount /lpf 2023 2:45 PM CDT [facility] BACTERIA, URINE Few(A) Negative /hpf 04/30/2024 2:45 PM CDT [facility] Urine URINE SPECIMEN / Unknown Non-Phlebotomy Collection / Unknown 04/30/2024 1:45 PM CDT 04/30/2024 1:55 PM CDT us Robert Le PAC URINE ORDERABLES Fin al Result [facility] [address] [place] [address] * Lipase (04/30/2024 1:45 PM CDT) LIPASE 15 8 - 78 U/L 04/30/2024 2:17 PM CDT [facility] Blood Venipuncture / Unknown 04/30/2024 1:45 PM CDT 04/30/2024 1:55 PM CDT Robert Alvarez Rey PAC CHEMISTRY ORDERABLES Final Result [facility] [address] [place] [address] * CMP (04/30/2024 1:45 PM CDT) SODIUM 140 136 - 145 mmol/L 04/30/2024 2:17 PM CDT [facility] POTASSIUM 3.6 3.5 - 5.1 mmol/L 04/30/2024 2:17 PM CDT [facility] CHLORIDE 105 98 - 107 mmol/L 04/30/2024 2:17 PM CDT [facility] CO2, VENOUS 27 22 - 30 mmol/L 04/30/2024 2:17 PM CDT [facility] ANION GAP 11.6 <18.0 mmol/L 04/30/2024 2:17 PM CDT [facility] GLUCOSE 91 70 - 99 mg/dL 04/30/2024 2:17 PM CDT [facility] BUN 13 10 - 20 mg/dL 04/30/2024 2:17 PM CDT [facility] CREATININE, BLOOD 0.83 0.60 - 1.00 mg/dL 04/30/2024 2:17 PM CDT [facility] BUN/CREATININE RATIO 16 12 - 20 ratio 04/30/2024 2:17 PM CDT [facility] TOTAL PROTEIN 8.2 6.3 - 8.2 g/dL 04/30/2024 2:17 PM CDT [facility] ALBUMIN 4.3 3.5 - 5.0 g/dL 04/30/2024 2:17 PM CDT [facility] A/G RATIO 1.1 1.0 - 2.2 04/30/2024 2:17 PM CDT [facility] CALCIUM 9.9 8.7 - 10.5 mg/dL 04/30/2024 2:17 PM CDT [facility] T BILI 0.3 0.2 - 1.2 mg/dL 04/30/2024 2:17 PM CDT [facility] SGOT (AST) 26 5 - 34 U/L 04/30/2024 2:17 PM CDT [facility] SGPT (ALT) 35 0 - 55 U/L 04/30/2024 2:17 PM CDT [facility] ALKALINE PHOSPHATASE 78 40 - 150 U/L 04/30/2024 2:17 PM CDT [facility] GFR, ESTIMATED >60 >=60 04/30/2024 2:17 PM CDT [facility] Comment: Creatinine Clearance is the preferred criteria for selecting drug dose adjustments in renally impaired patients. ??The GFR is provided as additional pertinent clinical information. GFR is reported in mL/min/1.73 sq m. Calculation based on the Chronic Kidney Disease Epidemiology Collaboration (CKD- EPI) equation refit without adjustment for race. GFR, EST. >60 >=60 024 2:17 PM CDT [facility] GFR, EST. NONAFRICAN >60 >=60 04/30/2024 2:17 PM CDT [facility] Blood Venipuncture / Unknown 04/30/2024 1:45 PM CDT 04/30/2024 1:55 PM CDT us Robert Le PAC CHEMISTRY ORDERABLES Final Result [facility] [address] [place] [address] * Gold Top Tube (04/30/2024 1:42 PM CDT) Blood No Phlebotomy Charged / Unknown 04/30/2024 1:42 PM CDT 04/30/2024 1:57 PM CDT us Robert Romeron PAC CHEMISTRY ORDERABLES Final Result Performing Organization Address City/[facility]/ZIP Co de Phone Number [facility] [facility] [place] [address] * Blue Top Tube (04/30/2024 1:42 PM CDT) Blood No Phlebotomy Charged / Unknown 04/30/2024 1:42 PM CDT 04/30/2024 1:57 PM CDT Robert Romeron PAC HEMATOLOGY ORDERABLE S Final Result Performing Organization Address City/[facility]/ZIP Co de Phone Number [facility] [place] [address] documented in this encounter Visit Diagnoses 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 pylori infection Helicobacter pylori (H. pylori) Lower abdominal pain Abdominal pain, other specified site documented in this encounter Administered Medications Inactive Administered Medications - up to 3 most recent administrations Medication Order MAR Action Action Date Dose Rate Site iopamidol (ISOVUE-370) 76 % injection 100 mL 100 mL, Intravenous, ONCE, 1 dose, On 04/30/24 at 1530 Given 04/30/2024 3:29 PM CDT 100 mL documented in this encounter Active and Recently Administered Medications Times are shown in CDT. Scheduled Medication Order 04/28/2024 04/29/2024 04/30/2024 iopamidol (ISOVUE-370) 76 % injection 100 mL (COMPLETED) 100 mL, Intravenous, ONCE, 1 dose, On 04/30/24 at 1530 1529 (Given - Provid er: Roosevelt Whalen, RTR) documented in this encounter Care Teams French Professor Relationship Specialty Start Date End Date Tomasz Martinez, PAC [address] [place] [id number] PCP - General Physician Rubber Compounder Supervisor 06/25/20 documented as of this encounter
--- OUTSIDE RECORDS SUMMARY | 2024-07-21 10:46 | XMS_ITS | Encounter Summary ---
Author Organization [employer] Care Team Providers Care Injection Mold Tooling Technician Name Role Phone Tomasz Martinez Primary Care Provider [phone] Encounter Details Date Type Department Care Team (Latest Contact Info) Description 06/04/2023 Travel Social History Tobacco Use Types Packs/Day [...] on filedocumented in this encounter Care Teams Injection Mold Tooling Technician Relationship Specialty Start Date End Date Tomasz Martinez PAC [address] [place] [address] PCP - General Physician Rim Fire Priming Tool Setter 06/25/20 documented as of this encounter
--- OUTSIDE RECORDS SUMMARY | 2024-07-21 10:46 | XMS_ITS | Encounter Summary ---
Author Organization [employer] Care Team Providers Care Grain Receiver Name Role Phone Tomasz Martinez Primary Care Provider [phone] Encounter Details Date Type Department Care Team (Latest Contact Info) Description 01/27/2023 Travel Social History Tobacco Use Types Packs/Day [...] PM CDT documented as of this encounter Plan of Treatment Not on file documented as of this encounter Visit Diagnoses Not on filedocumented in this encounter Care Teams Grain Receiver Relationship Specialty Start Date End Date Tomasz Martinez PAC [address] [place] [address] PCP - General Physician Research Environmental Scientist 06/25/20 documented as of this encounter
--- OUTSIDE RECORDS SUMMARY | 2024-07-21 10:46 | XMS_ITS | Encounter Summary ---
Author Organization [employer] Care Team Providers Care Senior Account Executive Name Role Phone Tomasz Martinez Primary Care Provider [phone] Encounter Details Date Type Department Care Team (Latest Contact Info) Description 04/21/2024 Travel Social History Tobacco Use Types Packs/Day [...] on filedocumented in this encounter Care Teams Senior Account Executive Relationship Specialty Start Date End Date Tomasz Martinez PAC [address] [place] [address] PCP - General Physician Sofa Cover Inspector 06/25/20 documented as of this encounter
--- OUTSIDE RECORDS SUMMARY | 2024-07-21 10:46 | XMS_ITS | Encounter Summary ---
Author Organization [employer] Care Team Providers Care Oxidation Engineer Name Role Phone Tomasz Martinez Primary Care Provider [phone] Encounter Details Date Type Department Care Team (Latest Contact Info) Description 07/06/2023 Travel Social History Tobacco Use Types Packs/Day [...] on filedocumented in this encounter Care Teams Oxidation Engineer Relationship Specialty Start Date End Date Tomasz Martinez PAC [address] [place] [address] PCP - General Physician Musical Instrument Supervisor 06/25/20 documented as of this encounter
--- OUTSIDE RECORDS SUMMARY | 2024-07-21 10:46 | XMS_ITS | Encounter Summary ---
Author Organization [employer] Care Team Providers Care Fresh Work Inspector Name Role Phone Tomasz Martinez Primary Care Provider [phone] Encounter Details Date Type Department Care Team (Latest Contact Info) Description 04/28/2024 Travel Social History Tobacco Use Types Packs/Day [...] on filedocumented in this encounter Care Teams Fresh Work Inspector Relationship Specialty Start Date End Date Tomasz Martinez PAC [address] [place] [address] PCP - General Physician Digital Advisor 06/25/20 documented as of this encounter
--- OUTSIDE RECORDS SUMMARY | 2024-07-21 10:46 | XMS_ITS | Encounter Summary ---
Author Organization [facility] Address [address] [place] [address] Phone Care Team Providers Care Petroleum Refining Firer Name Role Phone Tomasz Martinez Primary Care Provider [phone] Reason for Referral * Radiology Services (Routine) - Open Specialty Diagnoses / Procedures Referred By Cheryleac t Referred To Contact Radiology Diagnoses Dysphagia, unspecified type Procedures XR ESOPHAGRAM Piedad Jorge APRN, SMALL PARTS ASSEMBLER 2 [facility], [address] [address] Phone: tel: fax: Referral ID Status Reason Start Date Expiration Date Visits Re quested Visits Authorized [id number] Open 04/21/2024 1 1 Reason for Visit * Radiology Services (Routine) - Open Specialty Diagnoses / Procedures Referred By Carolina ocombs Referred To Contact Radiology Diagnoses Dysphagia, unspecified type Procedures XR ESOPHAGRAM Piedad Jorge APRN, SMALL PARTS ASSEMBLER 2 [facility], [address] [address] Phone: tel: fax: Referral ID Status Reason Start Date Expiration Date Visits Re quested Visits Authorized [id number] Open 04/21/2024 1 1 Encounter Details Date Type Department Care Team (Latest Contact Info) Description 04/28/2024 8:04 AM CDT - 04/28/2024 11:59 PM CDT Hospital Encounter [facility] Diagnostic Radiology [address] [place] [id number] Piedad Jorge, RDA, SMALL PARTS ASSEMBLER [address] [facility], [address] [place] [address] Discharge Disposition: Discharged to home or Selfcare [...] on file documented as of this encounter Medications at Time of Discharge [...] naloxone HCl (Narcan) 4 MG/0.1ML Liquid 1 [place] by Nasal route as needed (opioid overdose). [...] Tablet 05/23/2022 documented as of this encounter Plan of Treatment Not on file documented as of this encounter Procedures Procedure Name Priority Date/Time Associated Diagnosis Comments XR ESOPHAGRAM Routine 04/28/2024 8:46 AM CDT Dysphagia, unspecified type documented in this encounter Results * XR ESOPHAGRAM (04/28/2024 [...] PM T: ??04/28/2024 2:34 PM Report ID: [id number] Reading Location: ??[id number] Procedure Note Jerzy Major MD - 04/28/2024 [...] Jerzy Major M.D. AG: JORGE Report ID: [id number] Reading Location: [id number] IMPRESSION: 1. No significant stricture is seen. Tiny sliding hiatal hernia. Follow-up upper endoscopy is recommended for further evaluation. Piedad Jorge RDA, SMALL PARTS ASSEMBLER IMG FLUOROSCOPY ORDERAB LES Final Result documented in this encounter Visit Diagnoses Diagnosis Dysphagia, unspecified type documented in this encounter Administered Medications Inactive Administered Medications - up to 3 most recent administrations Medication Order MAR Action Action Date Dose Rate Site barium sulfate 60 % suspension SUSP 355 mL 355 mL, Oral, ONCE, 1 dose, On Wed04/28/24 at 0930 Given 04/28/2024 8:30 AM CDT 50 mL Barium Sulfate 98 % SUSR 140 mL 140 mL, Oral, ONCE, 1 dose, On Wed04/28/24 at 0930 Given 04/28/2024 8:30 AM CDT 100 mL barium TABS 1 Tablet 1 Tablet, Oral, ONCE, 1 dose, On Wed04/28/24 at 0930 Given 04/28/2024 8:30 AM CDT 1 Tablet sodium bicarbonate-citric acid-simethicone (EZ GAS) packet 1 Packet 1 Packet, Oral, ONCE, 1 dose, On Wed04/28/24 at 0930 Given 04/28/2024 8:30 AM CDT 1 Packet documented in this encounter Care Teams Petroleum Refining Firer Relationship Specialty Start Date End Date Tomasz Martinez, PAC [address] [place] [address] PCP - General Physician Direct Sales Representative 06/25/20 documented as of this encounter
--- OUTSIDE RECORDS SUMMARY | 2024-07-21 10:46 | XMS_ITS | Encounter Summary ---
Author Organization [employer] Care Team Providers Care Annealing Furnace Operator Name Role Phone Tomasz Martinez Primary Care Provider [phone] Encounter Details Date Type Department Care Team (Latest Contact Info) Description 02/19/2024 Travel Social History Tobacco Use Types Packs/Day [...] on filedocumented in this encounter Care Teams Annealing Furnace Operator Relationship Specialty Start Date End Date Tomasz Martinez PAC [address] [place] [address] PCP - General Physician Group Sales Representative 06/25/20 documented as of this encounter
--- OUTSIDE RECORDS SUMMARY | 2024-07-21 10:46 | XMS_ITS | Encounter Summary ---
Author Organization [facility] Address [address] [place] [address] Phone Care Team Providers Care Application Administrator Name Role Phone Tomasz Martinez Primary Care Provider [phone] Reason for Visit * Reason Comments Leg Pain Encounter Details Date Type Department Care Team (Late st Contact Info) Description 07/03/2023 3:06 PM CLAM DREDGE BOAT CAPTAIN - 07/03/2023 4:46 PM CLAM DREDGE BOAT CAPTAIN Emergency [facility] Emergency [address] [place] [address] Cesar Galvan MD [address] [place] [address] Leg pain, superior, right Discharge Disposition: Discharged to home or Selfcare [...] Sign Reading Time Taken Comments Blood Pressure 133/74 07/03/2023 4:45 PM CLAM DREDGE BOAT CAPTAIN Pulse 70 07/03/2023 4:45 PM CLAM DREDGE BOAT CAPTAIN Temperature 36.1 ??C (97 ??F) 07/03/2023 3:11 PM CLAM DREDGE BOAT CAPTAIN Respiratory Rate 18 07/03/2023 4:45 PM CLAM DREDGE BOAT CAPTAIN Oxygen Saturation 99% 07/03/2023 4:45 PM CLAM DREDGE BOAT CAPTAIN Inhaled Oxygen Concentration - - Weight 107.5 kg (237 lb) 07/03/2023 3:11 PM CLAM DREDGE BOAT CAPTAIN Height 154.9 cm (5' 1 ) 07/03/2023 3:11 PM CLAM DREDGE BOAT CAPTAIN Body Mass Index 44.78 07/03/2023 3:11 PM CLAM DREDGE BOAT CAPTAIN documented in this encounter Discharge Instructions * Attachments The following attachments cannot be sent through Care Everywhere. * Musculoskeletal Pain (Zimbabwean) documented in this encounter Medications at Time [...] naloxone HCl (Narcan) 4 MG/0.1ML Liquid 1 [place] by Nasal route as needed (opioid overdose). [...] Nausea - 1st line. 10 Tablet 05/23/2022 cyclobenzaprine (FLEXERIL) 10 MG Tablet Take 1 Tablet by mouth 3 times daily as needed for Muscle spasms for up to 7 days. 20 Tablet 07/03/2023 3 HYDROcodone-acet aminophen (NORCO) 5-325 MG TabletIndication s:Leg pain, superior, right Take 1-2 Tablets by mouth every 4 hours as needed for Moderate or more severe pain for up to 5 days. 10 Tablet 07/03/2023 3 indomethacin (INDOCIN) 50 MG Capsule Take 1 Capsule by mouth 3 times daily as needed for Moderate or more severe pain for up to 7 days. 20 Capsule 07/03/2023 3 documented as of this encounter ED Notes * Sindhu Smith RN - 07/03/2023 4:44 PM CST Patient discharged. Discharge instructions and patient educational material reviewed with patient; questions and concerns addressed; patient verbalizes understanding, using teach back. Patient was given 2 prescriptions. Patient was informed no drinking alcohol, driving or operating heavy machinery while taking narcotics or muscle relaxants. Patient discharged per ambulatory mode with spouse as responsible constitution party. Pt is alert and oriented x 4, vss, no distress noted DREDGE BOAT CAPTAIN * Sindhu Smith RN - 07/03/2023 4:00 PM CST Patient is resting in room with call light at bedside. Patient informed about wait time and verbalizes understanding. Patient denies needs at this time and verbalizes understanding that RN will complete hourly rounding. DREDGE BOAT CAPTAIN * Cesar Galvan MD - 07/03/2023 3:18 PM CST Chief Complaint Patient presents with ??? Leg Pain 57-year-old female presenting to the emergency department with right upper leg pain. This began 2 days ago, there was no inciting event, the pain is made worse by weight-bearing and movement of the leg, it was not made worse by palpation, she is tried ibuprofen and a lidocaine patch neither of which have been effective, she is not noticed any rash or skin change the area. She denies abdominal pain denies any back pain. No nausea vomiting diarrhea or other systemic signs or symptoms of illness. No current facility-administered medications for this encounter. Current Outpatient Medications Medication Sig Dispense Refill ??? albuterol 108 (90 Base) MCG/ACT Aerosol Solution take 2 Puffs by inhalation every 6 hours as needed for Wheezing. (Patient not taking: Reported on 06/04/2023) 8 g 0 ??? busPIRone (BUSPAR) 5 MG Tablet Take 5 mg by mouth. ??? cyclobenzaprine (FLEXERIL) 10 MG Tablet Take 1 Tablet by mouth 3 times daily as needed for Muscle spasms for up to 7 days. 20 Tablet 0 ??? escitalopram (LEXAPRO) 10 MG Tablet Take 10 mg by mouth daily. ??? HYDROcodone-acetaminophen (NORCO) 5-325 MG Tablet Take 1-2 Tablets by mouth every 4 hours as needed for Moderate or more severe pain for up to 5 days. 10 Tablet 0 ??? HYDROcodone-acetaminophen (NORCO) 5-325 MG Tablet Take 1 Tablet by mouth every 4 hours as needed for Moderate or more severe pain. 12 Tablet 0 ??? indomethacin (INDOCIN) 50 MG Capsule Take 1 Capsule by mouth 3 times daily as needed for Moderate or more severe pain for up to 7 days. 20 Capsule 0 ??? levothyroxine (SYNTHROID) 50 MCG Tablet Take 50 mcg by mouth daily. ??? LORazepam (ATIVAN) 1 MG Tablet Take 0.5 Tabs by mouth every 8 hours as needed for Anxiety. (Patient not taking: Reported on 06/04/2023) 15 Tab 0 ??? naloxone HCl (Narcan) 4 MG/0.1ML Liquid 1 [place] by Nasal route as needed (opioid overdose). [...] History Narrative ??? Not on file BP 133/74 Pulse 70 Temp 97 ??F (36.1 ??C) (Tympanic) Resp 18 Ht 5' 1 (1.549 m) Wt 237 lb(107.5 kg) SpO2 99% BMI 44.78 kg/m?? Review of Systems Constitutional: Negative for activity change, chills and fever. Respiratory: Negative for shortness of breath, wheezing and stridor. Gastrointestinal: Negative for abdominal pain, diarrhea and nausea. Musculoskeletal: Positive for gait problem and myalgias. All other systems reviewed and are negative. Physical Exam Vitals and nursing note reviewed. Constitutional: Appearance: She is obese. She is not ill-appearing. HENT: Head: Normocephalic and atraumatic. Mouth/Throat: Mouth: Mucous membranes are moist. Eyes: Extraocular Movements: Extraocular movements intact. Conjunctiva/sclera: Conjunctivae normal. Cardiovascular: Rate and Rhythm: Normal rate and regular rhythm. Pulmonary: Effort: Pulmonary effort is normal. Abdominal: General: Abdomen is flat. Palpations: Abdomen is soft. Musculoskeletal: General: Normal range of motion. Cervical back: Normal range of motion. Comments: She does not have reproducible tenderness to palpation to the area of concern which is the anterior lateral thigh however has significant pain to the area when she has passive or active range of motion. There is no skin discoloration wound or deformity. Skin: General: Skin is warm and dry. Capillary Refill: Capillary refill takes less than 2 seconds. Neurological: General: No focal deficit present. Mental Status: She is alert and oriented to person, place, and time. Psychiatric: Behavior: Behavior normal. Procedures No results found for this or any previous visit (from the past 24 hour(s)). Imaging Results XR FEMUR MIN 2V RIGHT (Final result) Result time 07/03/23 16:16:57 Final result by Santiago Arce MD (07/03/23 16:16:57) Impression: IMPRESSION: No acute osseous abnormality of the right femur. Narrative: EXAM DESCRIPTION: XR FEMUR MIN 2V RIGHT REASON FOR STUDY: c/o right upper thigh pain that has been ongoing for the past two days. no known injury. TECHNIQUE: 2 radiographic view(s) of the right femur . COMPARISON: None FINDINGS: There is no fracture or dislocation. Soft tissues are unremarkable. THIS IS AN ELECTRONICALLY VERIFIED FINAL REPORT 07/03/2023 4:14 PM - Electronically signed by Santiago Arce M.D. AM: AM Report ID: [id number] Reading Location: [place] [address] Medical Decision Making 57-year-old female presenting with right leg pain of unclear etiology, musculoskeletal versus nerveentrapment primary considerations, will obtain x-ray to rule out any underlying osseous abnormalities. Symptomatic treatment in the interim, no indication for hematologic or metabolic labs. Amount and/or Complexity of Data Reviewed External Data Reviewed: notes. Details: Last ED visit was for back pain. Radiology: ordered and independent interpretation performed. Decision-making details documented in ED Course. Details: No acute osseous abnormalities on my visualization of x-ray Risk Prescription drug management. Clinical Impression 1. Leg pain, superior, right Disposition: Discharge DREDGE BOAT CAPTAIN * Jerzy Church RN - 07/03/2023 3:14 PM CST Pt to ed room 10 with c/o right upper thigh pain that has been ongoing for the past two days. Denies any known injury. Denies any other sx. States pain increased significantly this morning. DREDGE BOAT CAPTAIN documented in this encounter Plan of Treatment Not on file documented as of this encounter Procedures Procedure Name Priority Date/Time Associated Diagnosis Comments XR FEMUR MIN 2V RIGHT STAT 07/03/2023 4:12 PM CLAM DREDGE BOAT CAPTAIN documented in this encounter Results * XR FEMUR MIN 2V RIGHT (07/03/2023 4:12 PM CLAM DREDGE BOAT CAPTAIN) Anatomical Region Laterality Modality LOWER EXTREMITY, Femur Right Digital R adiography 07/03/2023 4:14 PM CLAM DREDGE BOAT CAPTAIN Impressions 07/03/2023 4:16 PM CLAM DREDGE BOAT CAPTAIN IMPRESSION: No acute osseous abnormality of the right femur. Narrative 07/03/2023 4:16 PM CLAM DREDGE BOAT CAPTAIN EXAM DESCRIPTION: XR FEMUR MIN 2V RIGHT REASON FOR STUDY: c/o right upper thigh pain that has been ongoing for the past two days. no known injury. ? TECHNIQUE: 2 ??radiographic view(s) of the ??right femur . COMPARISON: None FINDINGS: There is no fracture or dislocation. ??Soft tissues are unremarkable. THIS IS AN ELECTRONICALLY VERIFIED FINAL REPORT 07/03/2023 4:14 PM - Electronically signed by ??Santiago Arce M.D. AM: AM D: ??07/03/2023 4:14 PM T: ??07/03/2023 4:14 PM Report ID: [id number] Reading Location: ??[id number] Procedure Note Santiago Arce MD - 07/03/2023 EXAM DESCRIPTION: XR FEMUR MIN 2V RIGHT REASON FOR STUDY: c/o right upper thigh pain that has been ongoing for the past two days. no known injury. TECHNIQUE: 2 radiographic view(s) of the right femur . COMPARISON: None FINDINGS: There is no fracture or dislocation. Soft tissues are unremarkable. THIS IS AN ELECTRONICALLY VERIFIED FINAL REPORT 07/03/2023 4:14 PM - Electronically signed by Santiago Arce M.D. AM: AM Report ID: [id number] Reading Location: [id number] IMPRESSION: No acute osseous abnormality of the right femur. Cesar Galvan MD IMG DIAGNOSTIC ORDERAB LES Final Result documented in this encounter Visit Diagnoses Diagnosis Leg pain, superior, right- Primary documented in this encounter Administered Medications Inactive Administered Medications - up to 3 most recent administrations Medication Order MAR Action Action Date Dose Rate Site HYDROcodone-acetaminoph en (NORCO) 5-325 MG per tablet 2 Tablet 2 Tablet, Oral, ONCE, 1 dose, On 07/03/23 at 1630, Maximum dose of acetaminophen is 4000 mg from all sources in 24 hours.If pain not effectively managed, then contact provider to discuss possibly 1) adding scheduled opioid dosing or non-opioid pain treatments, 2) increasing dosage, or 3) changing to [employer]. Given 07/03/2023 3:50 PM CLAM DREDGE BOAT CAPTAIN 2 Tablets ketorolac (TORADOL) injection 60 mg 60 mg, Intramuscular, ONCE, 1 dose, On 07/03/23 at 1630 Given 07/03/2023 3:50 PM CLAM DREDGE BOAT CAPTAIN 60 mg Right Ventrogluteal documented in this encounter Active and Recently Administered Medications Times are shown in CLAM DREDGE BOAT CAPTAIN. Scheduled Medication Order 07/01/2023 07/02/2023 07/03/2023 HYDROcodone-acetaminophen (NORCO) 5-325 MG per tablet 2 Tablet (COMPLETED) 2 Tablet, Oral, ONCE, 1 dose, On 07/03/23 at 1630, Maximum dose of acetaminophen is 4000 mg from all sources in 24 hours.If pain not effectively managed, then contact provider to discuss possibly 1) adding scheduled opioid dosing or non-opioid pain treatments, 2) increasing dosage, or 3) changing to [employer]. 1550 (Given - Provid er: Sindhu Smith RN) ketorolac (TORADOL) injection 60 mg (COMPLETED) 60 mg, Intramuscular, ONCE, 1 dose, On 07/03/23 at 1630 1550 (Given - Provid er: Sindhu Smith RN) documented in this encounter Care Teams Application Administrator Relationship Specialty Start Date End Date Tomasz Martinez PAC [address] [place] [address] PCP - General Physician Private Duty Rn 06/25/20 documented as of this encounter
--- OUTSIDE RECORDS SUMMARY | 2024-07-21 10:46 | XMS_ITS | Encounter Summary ---
Author Organization [facility] Address [address] [place] [address] Phone Care Team Providers Care Residential Electrician Name Role Phone Tomasz Martinez Primary Care Provider [phone] Reason for Visit * Radiology Services (Routine) - Closed Specialty Diagnoses / Procedures Referred By Contac t Referred To Contact Radiology Diagnoses Lumbar radiculopathy Procedures XR LUMBAR SPINE 2 OR 3 VIEWS XR LUMBAR SPINE MINIMUM 4 VIEWS Tomasz Martinez, PAC [address] [place] [address] Phone: tel: fax: Referral ID Status Reason Start Date Expiration Date Visits Re quested Visits Authorized [id number] Closed 07/06/2023 1 1 Encounter Details Date Type Department Care Team (Late st Contact Info) Description 07/06/2023 3:14 PM CARGO OPERATIONS AGENT - 07/06/2023 11:59 PM CARGO OPERATIONS AGENT Hospital [facility] [address] [place] [address] Tomasz Martinez, PAC [address] [place] [address] Discharge Disposition: Discharged to home or Selfcare [...] naloxone HCl (Narcan) 4 MG/0.1ML Liquid 1 [place]itt by Nasal route as needed (opioid overdose). [...] 07/03/2023 3 documented as of this encounter Plan of Treatment Not on file documented as of this encounter Procedures Procedure Name Priority Date/Time Associated Diagnosis Comments XR LUMBAR SPINE 2 OR 3 VIEWS Routine 07/06/2023 3:25 PM CARGO OPERATIONS AGENT Lumbar radiculopathy documented in this encounter Results * XR LUMBAR SPINE 2 OR 3 VIEWS (07/06/2023 3:25 PM CARGO OPERATIONS AGENT) Anatomical Region Laterality Modality Spine, L-spine N/A Digital Radiogra phy 07/07/2023 10:0 6 AM CARGO OPERATIONS AGENT Impressions 07/07/2023 10:08 AM CARGO OPERATIONS AGENT IMPRESSION: 1. ?? The L1 inferior endplate irregularity is new when compared to the previous lumbar spine radiographs dated 07/01/2011 but remains age indeterminate. ??Please correlate with physical examination. 2. ?? Pccs-cb-fwammyty lumbar degenerative changes have progressed in the interval. 3. ?? Further evaluation with MRI as clinically indicated. Narrative 07/07/2023 10:08 AM CARGO OPERATIONS AGENT EXAM DESCRIPTION: XR LUMBAR SPINE 2 OR 3 VIEWS REASON FOR STUDY: RT upper leg pain x 3 days no lower back pain no injury or surgery ? TECHNIQUE: Frontal and lateral ??radiographic view(s) of the ??lumbar ?? spine. COMPARISON: Lumbar spine radiographs dated 07/01/2011 and relevant portions of the CT abdomen and pelvis dated 02/21/2014. FINDINGS: 5 zng-juq-fgautad lumbar type vertebral bodies. ??Apparent dextroconvex curvature. ??Mild retrolisthesis of L3 on L4. ??The L1 superior endplate deformity is similar when compared to the previous radiographs dated 07/01/2011. ??However, the L1 inferior endplate irregularity is new in the interval but remains age indeterminate. ?? Few additional Schmorl's nodes including superior endplate of T12. ?? Lumbar disc height loss with endplate degenerative changes and marginal spur formation ranging from moderate to moderate. ??Lower lumbar predominant facet arthropathy. THIS IS AN ELECTRONICALLY VERIFIED FINAL REPORT 07/07/2023 10:06 AM - Electronically signed by ??Cezar Hess D.O. AP: AP D: ??07/07/2023 10:06 AM T: ??07/07/2023 10:06 AM Report ID: [id number] Reading Location: ??[id number] Procedure Note Deshawn Cezar Sri - 07/07/2023 EXAM DESCRIPTION: XR LUMBAR SPINE 2 OR 3 VIEWS REASON FOR STUDY: RT upper leg pain x 3 days no lower back pain no injury or surgery TECHNIQUE: Frontal and lateral radiographic view(s) of the lumbar spine. COMPARISON: Lumbar spine radiographs dated 07/01/2011 and relevant portions of the CT abdomen and pelvis dated 02/21/2014. FINDINGS: 5 tzw-yhy-dxczxkm lumbar type vertebral bodies. Apparent dextroconvex curvature. Mild retrolisthesis of L3 on L4. The L1 superior endplate deformity is similar when compared to the previous radiographs dated 07/01/2011. However, the L1 inferior endplate irregularity is new in the interval but remains age indeterminate. Few additional Schmorl's nodes including superior endplate of T12. Lumbar disc height loss with endplate degenerative changes and marginal spur formation ranging from moderate to moderate. Lower lumbar predominant facet arthropathy. THIS IS AN ELECTRONICALLY VERIFIED FINAL REPORT 07/07/2023 10:06 AM - Electronically signed by Cezar eHss D.O. AP: AP Report ID: [id number] Reading Location: [id number] IMPRESSION: 1. The L1 inferior endplate irregularity is new when compared to the previous lumbar spine radiographs dated 07/01/2011 but remains age indeterminate. Please correlate with physical examination. 2. Kasq-rg-sawaimet lumbar degenerative changes have progressed in the interval. 3. Further evaluation with MRI as clinically indicated. Tomasz Martinez PAC IMG DIAGNOSTIC ORDERABLES Fin al Result documented in this encounter Visit Diagnoses Diagnosis Lumbar radiculopathy Thoracic or lumbosacral neuritis or radiculitis, unspecified documented in this encounter Care Teams Residential Electrician Relationship Specialty Start Date End Date Tomasz Martinez, PAC [address] [place] [address] PCP - General Physician Fire Dispatcher 06/25/20 documented as of this encounter
--- OUTSIDE RECORDS SUMMARY | 2024-07-21 10:47 | XMS_ITS | Encounter Summary ---
Author Organization [facility] Care Team Providers Care Drying Oven Tender Name Role Phone Tomasz Martinez Primary Care Provider [phone] Encounter Details Date Type Department Care Team (Latest Contact Info) Description 05/23/2022 Travel Social History Tobacco Use Types Packs/Day [...] suspected to have Coronavirus/COVID-19? No / Unsure 05/23/2022 8:31 PM CDT documented as of this encounter Plan of Treatment Not on file documented as of this encounter Visit Diagnoses Not on filedocumented in this encounter Additional Health Concerns Infection Onset Date Last Indicated Resolved Time COVID - 19 05/23/2022 05/23/2022 06/02/2022 12:1 6 AM CDT documented as of this encounter Care Teams Drying Oven Tender Relationship Specialty Start Date End Date Tomasz Martinez PAC [address] [place] [address] PCP - General Physician Auto Damage Trainee 06/25/20 documented as of this encounter
--- OUTSIDE RECORDS SUMMARY | 2024-07-21 10:47 | XMS_ITS | Encounter Summary ---
Author Organization [facility] Address [address] [place] [address] Phone Care Team Providers Care Voice Network Administrator Name Role Phone Tomasz Martinez Primary Care Provider [phone] Reason for Visit * Reason Comments Nausea Vomiting Encounter Details Date Type Department Care Team ([facility] st Contact Info) Description 05/23/2022 8:33 PM CDT - 05/23/2022 10:31 PM CDT Emergency [facility] [address] [place] [id number] Radha Orozco, PAC [address] [place] [address] Hypokalemia Discharge Disposition: Discharged to home or Selfcare [...] Sign Reading Time Taken Comments Blood Pressure 118/72 05/23/2022 10:00 PM CDT Pulse 86 05/23/2022 10:15 PM CDT Temperature 36.8 ??C (98.3 ??F) 05/23/2022 10:30 PM C DT Respiratory Rate 18 05/23/2022 8:29 PM CDT Oxygen Saturation 96% 05/23/2022 10:15 PM CDT Inhaled Oxygen Concentration - - Weight 101.6 kg (224 lb) 05/23/2022 8:29 PM CDT Height 154.9 cm (5' 1 ) 05/23/2022 8:29 PM CDT Body Mass Index 42.32 05/23/2022 8:29 PM CDT documented in this encounter Discharge Instructions * Discharge Instructions* Radha Orozco PAC - 05/23/2022 10:13 PM CDT Please push fluids and avoid caffeine. Follow up with your primary care provider. Return for reevaluation if your symptoms change or worsen. Treat fever with tylenol and/or ibuprofen. * Attachments The following attachments cannot be sent through Care Everywhere. * Urinary Tract Infection Adult (Colombian) * Hypokalemia (Colombian) documented in this encounter Medications at Time [...] as needed for Anxiety. 15 Tab 07/07/2020 naproxen (NAPROSYN) 500 MG Tablet Take 1 Tablet by mouth 2 times daily as needed for Moderate or more severe pain. 20 Tablet 01/24/2021 ondansetron (ZOFRAN) 4 MG Tablet Take 1-2 Tablets by mouth every 8 hours as needed for Nausea - 1st line. 10 Tablet 05/23/2022 HYDROcodone-acet aminophen (NORCO) 5-325 MG TabletIndication s:Chest wall abscess Take 1 Tablet by mouth every 8 hours as needed for Moderate or more severe pain. 12 Tablet 02/05/2022 3 sulfamethoxazole -trimethoprim DS (Bactrim DS) 800-160 MG Tablet Take 1 Tablet by mouth 2 times daily for 10 days. 20 Tablet 05/23/2022 2 documented as of this encounter ED Notes * Ginna Bey RN - 05/23/2022 10:30 PM CDT Patient discharged. Discharge instructions and patient educational material reviewed with patient; questions and concerns addressed; patient verbalizes understanding, using teach back. Patient was given 2 prescriptions. Patient discharged per ambulatory mode as responsible green party. SL D/C'ed with Emmett cath intact. * Radha Orozco PAC - 05/23/2022 10:08 PM CDT Chief Complaint Patient presents with ??? Nausea ??? Vomiting HPI Elizabeth Oates is a 56 y.o. female who presents due to nausea, spitting up, and fatigue which started yesterday. Patient states that also has had some generalized abdominal discomfort. She denies any constipation, diarrhea, chest pain, sob, cough, or dysuria. She states her urine is very yellow . She presents with a fever. She denies knowledge of a fever at home. Her provider is Tomasz Martinez. PMH includes depression and thyroid disease. No current facility-administered medications for this encounter. [...] needed for Anxiety. 15 Tab 0 ??? naproxen (NAPROSYN) 500 MG Tablet Take 1 Tablet by mouth 2 times daily as needed for Moderate or more severe pain. 20 Tablet 0 ??? ondansetron (ZOFRAN) 4 MG Tablet Take 1-2 Tablets by mouth every 8 hours as needed for Nausea -1st line. 10 Tablet 0 ??? sulfamethoxazole-trimethoprim DS (Bactrim DS) 800-160 MG Tablet Take 1 Tablet by mouth 2 times daily for 10 days. 20 Tablet 0 No Known Allergies Past Medical [...] file Tobacco Use ??? Smoking status: Never Smoker ??? Smokeless tobacco: Never Used Vaping Use ??? Vaping Use: Never used Substance and Sexual Activity ??? Alcohol use: Yes Comment: rarely ??? Drug use: No ??? Sexual activity: Not on file Other Topics Concern ??? Not on file Social History Narrative ??? Not on file BP 121/76 Pulse 101 Temp (!) 101.1 ??F (38.4 ??C) (Tympanic) Resp 18 Ht 5' 1 (1.549 m) Wt 224 lb (101.6 kg) SpO2 97% BMI 42.32 kg/m?? Review of Systems Constitutional: Positive for fatigue and fever. Negative for chills. HENT: Negative for congestion, ear pain, rhinorrhea and sore throat. Eyes: Negative for discharge. Respiratory: Negative for cough, chest tightness, shortness of breath and wheezing. Cardiovascular: Negative for chest pain and palpitations. Gastrointestinal: Positive for nausea and vomiting. Negative for abdominal pain and diarrhea. Genitourinary: Negative for difficulty urinating and menstrual problem. Musculoskeletal: Negative for arthralgias and myalgias. Skin: Negative for rash and wound. [...] is no guarding or rebound. Musculoskeletal: General: Normal range of motion. Cervical back: Normal range of motion. Skin: General: Skin is warm and dry. Neurological: Mental Status: She is alert and oriented to person, place, and time. Cranial Nerves: No cranial nerve deficit. Labs Reviewed CMP (COMPREHENSIVE METABOLIC PANEL) - Abnormal; Notable for the following components: Result Value SODIUM 133 (*) POTASSIUM 3.0 (*) CHLORIDE 96 (*) GLUCOSE 128 (*) CREATININE, BLOOD 0.55 (*) SGOT (AST) 40 (*) SGPT (ALT) 47 (*) ALKALINE PHOSPHATASE 124 (*) All other components within normal limits URINALYSIS REFLEX IF INDICATED BY ABNORMAL RESULTS - Abnormal; Notable for the following components: WBC ESTERASE 500 /uL (*) PROTEIN, RANDOM URINE 100 mg/dL (*) URINE KETONES 5 mg/dL (*) UROBILINOGEN 4 mg/dL (*) URINE BLOOD 25 /uL (*) WBC (Urine) 21-50 (*) URINE RBC'S 6-10 (*) BACTERIA, URINE Moderate (*) All other components within normal limits CBC WITH AUTO DIFFERENTIAL - Abnormal; Notable for the following components: HEMOGLOBIN (HGB) 11.6 (*) NEUTROPHILS 80.9 (*) LYMPHOCYTES 12.2 (*) ABSOLUTE LYMPHOCYTES 1.00 (*) All other components within normal limits SARS-COV-2 BY MOLECULAR - Normal Narrative: This test has been authorized by the FDA under an Emergency Use Authorization (EUA) only. Negative results should be treated as presumptive and, if inconsistent with clinical signs and symptoms or necessary for patient management, the patient should be tested with an alternative molecularassay. Negative results do not preclude SARS-CoV-2 infection or any other respiratory pathogen. Additional information for Clinicians can be found at: https://www.fda.gov/media/498645/download Additional information for Patients can be found at: https://www.fda.gov/media/535625/download LIPASE - Normal TROPONIN I (TRP I) - Normal CULTURE, URINE COMPLETE BLOOD COUNT (CBC) WITH DIFF Narrative: The following orders were created for panel order CBC with Diff [id number]. Procedure Abnormality Status --------- ------ CBC with Auto Differential[[id number]] Abnormal Final result Please view results for these tests on the individual orders. POCT INFLUENZA A & B XR ABDOMINAL SERIES WITH CHEST VIEW Final Result IMPRESSION: No bowel obstruction or other acute abnormality identified. CMP (Comprehensive Metabolic Panel) Final Result CBC with Diff [id number] Final Result Lipase [id number] Final Result URINALYSIS REFLEX IF INDICATED BY ABNORMAL RESULTS Final Result Troponin I (Trp I) Final Result EKG 12 LEAD (Results Pending) Procedures Imaging Results XR ABDOMINAL SERIES WITH CHEST VIEW (Final result) Result time 05/23/22 22:00:00 Final result by Eduar Soliman MD (05/23/22 22:00:00) Impression: IMPRESSION: No bowel obstruction or other acute abnormality identified. Narrative: EXAM DESCRIPTION: XR ABDOMINAL SERIES WITH CHEST VIEW REASON FOR STUDY: fever, vomiting x this morning TECHNIQUE: Frontal chest and supine and decubitus abdomen radiographic views acquired. COMPARISON: 02/21/2014 FINDINGS: CHEST: Lungs are clear. Heart size normal. FREE-AIR: None. BOWEL: Nonobstructive gas pattern. OTHER SOFT TISSUES: Unremarkable. BONES: Endplate osteophytes. THIS IS AN ELECTRONICALLY VERIFIED FINAL REPORT 05/23/2022 9:57 PM - Electronically signed by Eduar Soliman M.D. AR: TRISHA Report ID: [id number] Reading Location: [place] [address] Labs Reviewed CMP (COMPREHENSIVE METABOLIC PANEL) - Abnormal; Notable for the following components: Result Value SODIUM 133 (*) POTASSIUM 3.0 (*) CHLORIDE 96 (*) GLUCOSE 128 (*) CREATININE, BLOOD 0.55 (*) SGOT (AST) 40 (*) SGPT (ALT) 47 (*) ALKALINE PHOSPHATASE 124 (*) All other components within normal limits URINALYSIS REFLEX IF INDICATED BY ABNORMAL RESULTS - Abnormal; Notable for the following components: WBC ESTERASE 500 /uL (*) PROTEIN, RANDOM URINE 100 mg/dL (*) URINE KETONES 5 mg/dL (*) UROBILINOGEN 4 mg/dL (*) URINE BLOOD 25 /uL (*) WBC (Urine) 21-50 (*) URINE RBC'S 6-10 (*) BACTERIA, URINE Moderate (*) All other components within normal limits CBC WITH AUTO DIFFERENTIAL - Abnormal; Notable for the following components: HEMOGLOBIN (HGB) 11.6 (*) NEUTROPHILS 80.9 (*) LYMPHOCYTES 12.2 (*) ABSOLUTE LYMPHOCYTES 1.00 (*) All other components within normal limits SARS-COV-2 BY MOLECULAR - Normal Narrative: This test has been authorized by the FDA under an Emergency Use Authorization (EUA) only. Negative results should be treated as presumptive and, if inconsistent with clinical signs and symptoms or necessary for patient management, the patient should be tested with an alternative molecularassay. Negative results do not preclude SARS-CoV-2 infection or any other respiratory pathogen. Additional information for Clinicians can be found at: https://www.fda.gov/media/309316/download Additional information for Patients can be found at: https://www.fda.gov/media/096358/download LIPASE - Normal TROPONIN I (TRP I) - Normal CULTURE, URINE COMPLETE BLOOD COUNT (CBC) WITH DIFF Narrative: The following orders were created for panel order CBC with Diff [id number]. Procedure Abnormality Status --------- ------ CBC with Auto Differential[[id number]] Abnormal Final result Please view results for these tests on the individual orders. POCT INFLUENZA A & B MDM Coding Clinical Impression 1. Urinary tract infection Patient was given IV fluids and rocephin in the ED. She was discharged with bactrim. Encouraged close f/u with her pmd and to return for reevaluation if sx change or worsen. Cosigned by Julian Sheth MD at 05/24/2022 5:59 AM CDT * Fifi Jean RN - 05/23/2022 10:02 PM CDT Pt medicated per provider orders. Pt educated on intended effects and side effects of medication and verbalized understanding, able to provide teach back of education. * Fifi Jean RN - 05/23/2022 9:20 PM CDT Pt medicated per provider orders. Pt educated on intended effects and side effects of medication and verbalized understanding, able to provide teach back of education. * Fifi Jean RN - 05/23/2022 9:00 PM CDT ERP at bedside * Fifi Jean RN - 05/23/2022 8:59 PM CDT Pt medicated per provider orders. Pt educated on intended effects and side effects of medication and verbalized understanding, able to provide teach back of education. * Constance Dickson RN - 05/23/2022 8:27 PM CDT Patient reports waking up with nausea and vomiting this morning. Patient states she feels sick . Patient febrile in triage. Denies exposure to any sick. documented in this encounter Plan of Treatment Not on file documented as of this encounter Procedures Procedure Name Priority Date/Time Associated Diagnosis Comments POCT INFLUENZA A & B STAT 05/23/2022 10:07 PM CDT XR ABDOMINAL SERIES WITH CHEST VIEW STAT 05/23/2022 9:20 PM CDT SARS-COV-2 BY MOLECULAR STAT 05/23/2022 8:59 PM CDT CBC WITH AUTO DIFFERENTIAL STAT 05/23/2022 8:45 PM CDT LIPASE STAT 05/23/2022 8:45 PM CDT CMP (COMPREHENSIVE METABOLIC PANEL) STAT 05/23/2022 8:45 PM CDT COMPLETE BLOOD COUNT (CBC) WITH DIFF STAT 05/23/2022 8:45 PM CDT EKG 12 LEAD STAT 05/23/2022 8:41 PM CDT URINALYSIS REFLEX IF INDICATED BY ABNORMAL RESULTS STAT 05/23/2022 8:37 PM CDT TROPONIN I (TRP I) STAT 05/23/2022 8: 37 PM CDT CULTURE, URINE STAT 05/23/2022 8:37 PM CDT documented in this encounter Results * POCT Influenza A & B (05/23/2022 10:07 PM CDT) POC INFLU A Presumptive negative Group A Presumptive negative Group A, Invalid POC INFLU B Presumptive negative Group B Presumptive negative Group B, Invalid POC INFLUENZA CONTROL Flight Attendant/Inflight Supervisor Pass 05/23/2022 10:0 7 PM CDT Radha Sunflower Page PAC POINT OF CARE TESTING (ANA Cook) Final Result * XR ABDOMINAL SERIES WITH CHEST VIEW (05/23/2022 9:20 PM CDT) Anatomical Region Laterality Modality Abdomen N/A Digital Radiogra phy 05/23/2022 9:57 PM CDT Impressions 05/23/2022 10:00 PM CDT IMPRESSION: No bowel obstruction or other acute abnormality identified. ?? Narrative 05/23/2022 10:00 PM CDT EXAM DESCRIPTION: ?? XR ABDOMINAL SERIES WITH CHEST VIEW REASON FOR STUDY: ?? fever, vomiting x this morning ?? TECHNIQUE: ??Frontal chest and supine and ??decubitus ??abdomen radiographic views acquired. COMPARISON: ?? 02/21/2014 FINDINGS: CHEST: ??Lungs are clear. ??Heart size normal. FREE-AIR: ??None. ?? BOWEL: ??Nonobstructive gas pattern. ?? OTHER SOFT TISSUES: ??Unremarkable. ?? BONES: ??Endplate osteophytes. THIS IS AN ELECTRONICALLY VERIFIED FINAL REPORT 05/23/2022 9:57 PM - Electronically signed by ??Eduar Soliman M.D. AR: TRISHA D: ??05/23/2022 9:57 PM T: ??05/23/2022 9:57 PM Report ID: [id number] Reading Location: ??[id number] Procedure Note Eduar Soliman MD - 05/23/2022 EXAM DESCRIPTION: XR ABDOMINAL SERIES WITH CHEST VIEW REASON FOR STUDY: fever, vomiting x this morning TECHNIQUE: Frontal chest and supine and decubitus abdomen radiographic views acquired. COMPARISON: 02/21/2014 FINDINGS: CHEST: Lungs are clear. Heart size normal. FREE-AIR: None. BOWEL: Nonobstructive gas pattern. OTHER SOFT TISSUES: Unremarkable. BONES: Endplate osteophytes. THIS IS AN ELECTRONICALLY VERIFIED FINAL REPORT 05/23/2022 9:57 PM - Electronically signed by Eduar Soliman M.D. AR: TRISHA Report ID: [id number] Reading Location: [id number] IMPRESSION: No bowel obstruction or other acute abnormality identified. Radha Hough Page PAC IMG DIAGNOSTIC ORDERABLES Fi nal Result * SARS-COV-2 BY MOLECULAR (05/23/2022 8:59 PM CDT) Pathologist [facility] SARSCOV2 NOT DETECTED (Referenc e Range for this test is Not Detected) [facility] ID NOW 05/23/2022 9:46 PM CDT [facility] Comment:This test was perfor med by a MOLECULAR, NON-PCR method Other NASAL STRUCTURE / Unknown Non-Phlebotomy Collection / Unknown 05/23/2022 8:59 PM CDT 05/23/2022 9:05 PM CDT Narrative [facility] - 05/23/2022 9:46 PM CDT This test has been authorized by the FDA under an Emergency Use Authorization (EUA) only. Negative results should be treated as presumptive and, if inconsistent with clinical signs and symptoms or necessary for patient management, the patient should be tested with an alternative molecular assay. Negative results do not preclude SARS-CoV-2 infection or any other respiratory pathogen. Additional information for Clinicians can be found at: https://www.fda.gov/media/920774/download Additional information for Patients can be found at: https://www.fda.gov/media/701980/download Radha Hough Page PAC MICROBIOLOGY - GENERAL ORDER BRYON Final Result [facility] [address] [place] [address] * (ABNORMAL) CBC with Auto Differential (05/23/2022 8:45 PM CDT) [facility] WBC 8.22 4.00 - 12.00 10(3)/mcL 05/23/2022 9:01 PM CDT [facility] RBC 4.01 3.80 - 5.30 10(6)/mcL 05/23/2022 9:01 PM CDT [facility] HEMOGLOBIN (HGB) 11.6(L) 12.0 - 15.8 g/dL 05/23/2022 9:01 PM CDT [facility] HEMATOCRIT (HCT) 36.2 36.0 - 47.0 % 05/23/2022 9:01 PM CDT [facility] MCV 90.3 82.0 - 96.0 fL 05/23/2022 9:01 PM CDT [facility] MCH 28.9 26.0 - 34.0 pg 05/23/2022 9:01 PM CDT [facility] MCHC 32.0 31.0 - 36.0 g/dL 05/23/2022 9:01 PM CDT [facility] PLATELET COUNT 234 140 - 440 10(3)/mcL 05/23/2022 9:01 PM CDT [facility] RDW 13.2 11.8 - 15.5 % 05/23/2022 9:01 PM CDT [facility] MPV 10.1 9.7 - 12.4 fL 05/23/2022 9:01 PM CDT [facility] NEUTROPHILS 80.9(H) 47.0 - 73.0 % 05/23/2022 9:01 PM CDT [facility] LYMPHOCYTES 12.2(L) 18.0 - 42.0 % 05/23/2022 9:01 PM CDT [facility] MONOCYTES 6.2 4.0 - 12.0 % 05/23/2022 9:01 PM CDT [facility] EOSINOPHILS 0.5 0.0 - 5.0 % 05/23/2022 9:01 PM CDT [facility] BASOPHILS 0.2 0.0 - 1.0 % 05/23/2022 9:01 PM CDT [facility] ABSOLUTE NEUTROPHILS 6.65 1.60 - 7.70 10(3)/mcL 05/23/2022 9:01 PM CDT [facility] ABSOLUTE LYMPHOCYTES 1.00(L) 1.30 - 3.20 10(3)/mcL 05/23/2022 9:01 PM CDT [facility] ABSOLUTE MONOCYTES 0.51 0.20 - 1.00 10(3)/mcL 05/23/2022 9:01 PM CDT [facility] ABSOLUTE EOSINOPHIL 0.04 0.00 - 0.40 10(3)/mcL 05/23/2022 9:01 PM CDT [facility] ABSOLUTE BASOPHILS 0.02 0.00 - 0.10 10(3)/mcL 05/23/2022 9:01 PM CDT [facility] NRBC PER 100 WBC 0 05/23/20 9:01 PM CDT [facility] Blood Venipuncture / Unknown 05/23/2022 8:45 PM CDT 05/23/2022 8:58 PM CDT Radha Orozco PAC HEMATOLOGY ORDERABLES Final Result Performing Organization Address City/[facility]/ZIP Co de Phone Number [facility] [address] [place] [address] * Lipase [id number] (05/23/2022 8:45 PM CDT) Pathologist [facility] LIPASE 16.1 13 - 60 U/L 05/23/2022 9:18 PM CDT [facility] Blood Venipuncture / Unknown 05/23/2022 8:45 PM CDT 05/23/2022 8:58 PM CDT Radha Orozco PAC CHEMISTRY ORDERABLES Final R esult Performing Organization Address City/[facility]/ZIP Co de Phone Number [facility] [address] [place] [address] * (ABNORMAL) CMP (Comprehensive Metabolic Panel) (05/23/2022 8:45 PM CDT) SODIUM 133(L) 136 - 144 mmol/L 05/23/2022 9:18 PM CDT [facility] POTASSIUM 3.0(L) 3.5 - 5.1 mmol/L 05/23/2022 9:18 PM CDT [facility] CHLORIDE 96(L) 100 - 110 mmol/L 05/23/2022 9:18 PM CDT [facility] CO2, VENOUS 25 22 - 32 mmol/L 05/23/2022 9:18 PM T [facility] ANION GAP 15.0 8.0 - 20.0 mmol/L 05/23/2022 9:18 PM T [facility] GLUCOSE 128(H) 70 - 99 mg/dL 05/23/2022 9:18 PM CDT [facility] BUN 10 6 - 20 mg/dL 05/23/2022 9:18 PM T [facility] CREATININE, BLOOD 0.55(L) 0.60 - 1.10 mg/dL 05/23/2022 9:18 PM T [facility] BUN/CREATININE RATIO 18 12 - 20 ratio 05/23/2022 9:18 PM [facility] TOTAL PROTEIN 7.8 6.0 - 8.3 g/dL 05/23/2022 9:18 PM T [facility] ALBUMIN 3.9 3.5 - 5.2 g/dL 05/23/2022 9:18 PM [facility] Comment: The colormetric methods used for the determination of Albumin may lead to falsely elevated test results in patients suffering from renal failure or insufficiency due to interference with other proteins. A/G RATIO 1.0 1.0 - 2.0 05/23/2022 9:18 PM T [facility] CALCIUM 9.2 8.9 - 10.3 mg/dL 05/23/2022 9:18 PM T [facility] T BILI 0.5 <=1.2 mg/dL 05/23/2022 9:18 PM T [facility] SGOT (AST) 40(H) <=32 U/L 05/23/2022 9:18 PM T [facility] SGPT (ALT) 47(H) <=41 U/L 05/23/2022 9:18 PM T [facility] ALKALINE PHOSPHATASE 124(H) 35 - 105 U/L 05/23/2022 9:18 PM CDT [facility] GFR, ESTIMATED >60 >=60 05/23/2022 9:18 PM CDT [facility] Comment: Creatinine Clearance is the preferred criteria for selecting drug dose adjustments in renally impaired patients. ??The GFR is provided as additional pertinent clinical information. GFR is reported in mL/min/1.73 sq m. Calculation based on the Chronic Kidney Disease Epidemiology Collaboration (CKD- EPI) equation refit without adjustment for race. GFR, EST. >60 >=60 022 9:18 PM CDT [facility] GFR, EST. NONAFRICAN >60 >=60 05/23/2022 9:18 PM CDT [facility] Blood Venipuncture / Unknown 05/23/2022 8:45 PM CDT 05/23/2022 8:58 PM CDT Radha Hough Page PAC CHEMISTRY ORDERABLES Final R esult [facility] [address] [place] [address] * EKG 12 LEAD (05/23/2022 8:41 PM CDT) Ventricular Rate BPM EXTERNAL EKG Atrial Rate BPM EXTERNAL EKG P-R Interval 178 ms EXTERNAL EKG QRS Duration 88 ms EXTERNAL EKG Q-T Duration 332 ms EXTERNAL EKG QTC CALCULATION 426 ms EXTERNAL EKG P Vansant 24 degrees EXTERNAL EKG R Vans[place] -26 degrees EXTERNAL EKG T Vans[place] -9 degrees EXTERNAL EKG 05/23/2022 8:41 PM CDT Impressions EXTERNAL EKG - 05/25/2022 1:00 PM CDT Sinus rhythm Leftward axis Anterior infarct as previously Inferior/lateral T abnormality is nonspecific Low QRS voltages in precordial leads Comparison Summary: Descriptive differences only Summary: Abnormal ECG Compared with:01/17/2021 10:31 PM Confirmed by Fernando Fay [id number] on 05/25/2022 1:00:59 PM Narrative Procedure Note Sumeet Sigala MD - 05/25/2022 IMPRESSION: Sinus rhythm Leftward axis Anterior infarct as previously Inferior/lateral T abnormality is nonspecific Low QRS voltages in precordial leads Comparison Summary: Descriptive differences only Summary: Abnormal ECG Compared with:01/17/2021 10:31 PM Confirmed by Fernando Fay [id number] on 05/25/2022 1:00:59 PM Julian Sheth MD IMG ECG ORDERABLES Final Result Performing Organization Address City/[facility]/ZIP Co de Phone Number EXTERNAL EKG * Culture, Urine (05/23/2022 8:37 PM CDT) [facility] CULTURE RESULTS MIXED GROWTH OF 3 OR MORE ORGANISMS, PROBABLE COLLECTION CONTAMINATION, SUGGEST REPEAT URINE CULTURE. 05/25/2022 11:09 AM CDT [facility] Urine URINE SPECIMEN COLLECTION, CLEAN CATCH / Unknown Non-Phlebotomy Collection / Unknown 05/23/2022 8:37 PM CDT 05/23/2022 8:57 PM CDT Radha Orozco PAC MICROBIOLOGY - GENERAL ORDER BRYON Final Result Performing Organization Address [facility] Co de Phone Number [facility] [address] [place] [address], [place] * Troponin I (Trp I) (05/23/2022 8:37 PM CDT) [facility] TROPONIN I <0.300 <=0.300 ng/mL 05/23/2022 9:19 PM CDT [facility] Blood Venipuncture / Unknown 05/23/2022 8:37 PM CDT 05/23/2022 9:06 PM CDT Radha Orozco PAC CHEMISTRY ORDERABLES Final R esult Performing Organization Address City/[facility]/ZIP Co de Phone Number [facility] [place] [address] * (ABNORMAL) URINALYSIS REFLEX IF INDICATED BY ABNORMAL RESULTS (05/23/2022 8:37 PM CDT) SPECIFIC GRAVITY 1.025 1.003 - 1.030 05/23/2022 9:05 PM CDT [facility] URINE PH 5.0 5.0 - 9.0 05/23/2022 9:05 PM CDT [facility] WBC ESTERASE 500 /uL(A) Negative 05/23/2022 9:05 PM CDT [facility] NITRITE Negative Negative 05/23/2022 9:05 PM CDT [facility] PROTEIN, RANDOM URINE 100 mg/dL(A) Negative 05/23/2022 9:05 PM CDT [facility] URINE GLUCOSE, QUAL Negative Negative 05/23/2022 9:05 PM CDT [facility] URINE KETONES 5 mg/dL(A) Negative 05/23/2022 9:05 PM CDT [facility] UROBILINOGEN 4 mg/dL(A) Normal mg/dL 05/23/2022 9:05 PM CDT [facility] URINE BLOOD 25 /uL(A) Negative eden/ul 05/23/2022 9:05 PM CDT [facility] URINALYSIS COLOR Bita 05/23/20 9:05 PM CDT [facility] URINALYSIS CLARITY Clear 05/23/2022 9:05 PM CDT [facility] WBC (Urine) 21-50(A) Negative, 0-5 /hpf 05/23/2022 9:05 PM CDT [facility] URINE RBC'S 6-10(A) Negative, 0-2 /hpf 05/23/2022 9:05 PM CDT [facility] EPITHELIAL CELLS Moderate amount /lpf 05/23/2022 9:05 PM CDT [facility] BACTERIA, URINE Moderate(A) Negative /hpf 05/23/2022 9:05 PM CDT [facility] Urine URINE SPECIMEN COLLECTION, CLEAN CATCH / Unknown Non-Phlebotomy Collection / Unknown 05/23/2022 8:37 PM CDT 05/23/2022 8:57 PM CDT Radha [place] Page PAC URINE ORDERABLES Final Resul t [facility] [facility] [address] [place] [address] documented in this encounter Visit Diagnoses Diagnosis Urinary tract infection- Primary Urinary tract infection, site not specified Hypokalemia Hypopotassemia documented in this encounter Administered Medications Inactive Administered Medications - up to 3 most recent administrations Medication Order MAR Action Action Date Dose Rate Site 0.9 % sodium chloride solution at 1,000 mL/hr, Intravenous, ONCE, 1 dose, On 05/23/22 at 2100 New Bag 05/23/2022 8:56 PM CDT 1000 mL/hr acetaminophen (TYLENOL) tablet 650 mg 650 mg, Oral, ONCE, 1 dose, On 05/23/22 at 2130, Maximum dose of acetaminophen is 4000 mg from all sources in 24 hours. Given 05/23/2022 9:18 PM CDT 650 mg cefTRIAXone (ROCEPHIN) injection 1 g 1 g, Intravenous, ONCE, 1 dose, On 05/23/22 at 2200, Indications: urinary tract infectionIndications:urinary tract infection Given 05/23/2022 9:55 PM CDT 1 g ondansetron (ZOFRAN) injection 4 mg 4 mg, Intravenous, ONCE, 1 dose, On 05/23/22 at 2100 Given 05/23/2022 8:56 PM CDT 4 mg potassium chloride SA (KLORCON M) tablet 20 mEq 20 mEq, Oral, ONCE, 1 dose, On 05/23/22 at 2200, Do not crush. Given 05/23/2022 9:55 PM CDT 20 mEq documented in this encounter Active and Recently Administered Medications Times are shown in CDT. Scheduled Medication Order 05/21/2022 05/22/2022 05/23/2022 0.9 % sodium chloride solution (COMPLETED) at 1,000 mL/hr, Intravenous, ONCE, 1 dose, On 05/23/22 at 2100 2055 (New Bag - Prov ider: Fifi Jean RN)2201 (Stopped - Provider: Fifi Jean RN) acetaminophen (TYLENOL) tablet 650 mg (COMPLETED) 650 mg, Oral, ONCE, 1 dose, On 05/23/22 at 2130, Maximum dose of acetaminophen is 4000 mg from all sources in 24 hours. 2117 (Given - Provid er: Fifi Jean RN) cefTRIAXone (ROCEPHIN) injection 1 g (COMPLETED) 1 g, Intravenous, ONCE, 1 dose, On 05/23/22 at 2200, Indications: urinary tract infection 2154 (Given - Provid er: Fifi Jean RN) ondansetron (ZOFRAN) injection 4 mg (COMPLETED) 4 mg, Intravenous, ONCE, 1 dose, On 05/23/22 at 2100 2055 (Given - Provid er: Fifi Jean RN) potassium chloride SA (KLORCON M) tablet 20 mEq (COMPLETED) 20 mEq, Oral, ONCE, 1 dose, On 05/23/22 at 2200, Do not crush. 2154 (Given - Provid er: Fifi Jean RN) documented in this encounter Additional Health Concerns Infection Onset Date Last Indicated Resolved Time COVID - 19 05/23/2022 05/23/2022 06/02/2022 12:1 6 AM CDT documented as of this encounter Care Teams Voice Network Administrator Relationship Specialty Start Date End Date Tomasz Martinez, [address] [place] [address] PCP - General Physician Transportation Associate 06/25/20 documented as of this encounter
--- OUTSIDE RECORDS SUMMARY | 2024-07-21 10:47 | XMS_ITS | Encounter Summary ---
Author Organization [employer] Care Team Providers Care Business Development Specialist Name Role Phone Tomasz Martinez Primary Care Provider [phone] Encounter Details Date Type Department Care Team (Latest Contact Info) Description 01/17/2021 Travel Social History Tobacco Use Types Packs/Day Years Used Date Smoking Tobacco: Never Smokeless Tobacco: Never Alcohol Use Standard Drinks/Week Comments No 0 (1 standard drink = 0.6 oz pur e alcohol) Comments No Sex and Gender Information Value Date Recorded Sex Assigned at Not on file Legal Sex Female 8:09 PM CDT Gender Identity Not on file Sexual Orientation Not on file COVID-19 Exposure Response Date Recorded In the last month, have you been in contact with someone who was confirmed or suspected to have Coronavirus / COVID-19? No / Unsure 01/17/2021 10:29 PM CDT documented as of this encounter Plan of Treatment Not on file documented as of this encounter Visit Diagnoses Not on filedocumented in this encounter Care Teams Business Development Specialist Relationship Specialty Start Date End Date Tomasz Martinez PAC [address] [place] [address] PCP - General Physician Cafe Aide 06/25/20 documented as of this encounter
--- OUTSIDE RECORDS SUMMARY | 2024-07-21 10:47 | XMS_ITS | Encounter Summary ---
Author Organization [employer] Care Team Providers Care Process Improvement Analyst Name Role Phone Tomasz Martinez Primary Care Provider Encounter Details Date Type Department Care Team (Latest Contact Info) Description 07/07/2020 Travel Social History Tobacco Use Types Packs/Day [...] or suspected to have Coronavirus / COVID-19? Yes 07/07/2020 1:21 PM CASE SUPERVISOR documented as of this encounter Plan of Treatment Not on file documented as of this encounter Visit Diagnoses Not on filedocumented in this encounter Care Teams Process Improvement Analyst Relationship Specialty Start Date End Date Tomasz Martinez PAC [address] [place] [address] PCP - General Physician Bobbin Fixer 06/25/20 documented as of this encounter
--- OUTSIDE RECORDS SUMMARY | 2024-07-21 10:47 | XMS_ITS | Encounter Summary ---
Author Organization [facility] Address [address] [place] [address] Phone Care Team Providers Care Building Custodial Supervisor Name Role Phone Tomasz Martinez Primary Care Provider [phone] Reason for Visit * Reason Comments Back Pain Encounter Details Date Type Department Care Team (Late st Contact Info) Description 11/11/2022 3:45 PM CDT - 11/11/2022 5:37 PM CDT Emergency [facility] Emergency [address] [place] [address] Bipin Kelly MD [address] [place] [address] Sacroiliac pain Discharge Disposition: Discharged to home or [...] suspected to have Coronavirus/COVID-19? No / Unsure 11/11/2022 3:41 PM CDT documented as of this encounter Last Filed Vital Signs Vital Sign Reading Time Taken Comments Blood Pressure 132/78 11/11/2022 5:21 PM CDT Pulse 82 11/11/2022 5:21 PM CDT Temperature 35.9 ??C (96.7 ??F) 11/11/2022 3:42 PM CD T Respiratory Rate 18 11/11/2022 5:21 PM CDT Oxygen Saturation 98% 11/11/2022 5:21 PM CDT Inhaled Oxygen Concentration - - Weight 113.4 kg (250 lb) 11/11/2022 3:42 PM CDT Height 154.9 cm (5' 1 ) 11/11/2022 3:42 PM CDT Body Mass Index 47.24 11/11/2022 3:42 PM CDT documented in this encounter Discharge Instructions * Attachments The following attachments cannot be sent through Care Everywhere. * Sacroiliac Joint Dysfunction (Israeli) documented in this encounter Medications at Time [...] naloxone HCl (Narcan) 4 MG/0.1ML Liquid 1 [place] by Nasal route as needed (opioid overdose). [...] Nausea - 1st line. 10 Tablet 05/23/2022 diclofenac (CATAFLAM) 50 MG Tablet Take 1 Tablet by mouth 2 times daily for 30 days. 60 Tablet 11/11/2022 HYDROcodone-aceta minophen (NORCO) 5-325 MG TabletIndications :SI [...] as of this encounter ED Notes * Candace Fischer RN - 11/11/2022 5:36 PM CDT Patient discharged. Discharge instructions and patient educational material reviewed with patient; questions and concerns addressed; patient verbalizes understanding, using teach back. Patient was given 2 prescriptions. Patient was informed no drinking alcohol, driving or operating heavy machinery while taking narcotics or muscle relaxants. Patient discharged per ambulatory mode with self as responsible libertarian. * Candace Fischer RN - 11/11/2022 5:08 PM CDT Patient resting on recliner with no requests at this time. Call light within reach. Will continue to monitor. * Candace Fischer RN - 11/11/2022 4:14 PM CDT Patient resting on recliner with no requests at this time. Updated on plan of care. Call light within reach. Will continue to monitor. * Candace Fischer RN - 11/11/2022 4:13 PM CDT Pt medicated per provider orders. Pt educated on intended effects and side effects of medication and verbalized understanding, able to provide teach back of education. * Bipin Kelly MD - 11/11/2022 4:04 PM CDT Chief Complaint Patient presents with ??? Back Pain Elizabeth Oates is a 57 y.o. female who presents to the emergency department complaining of left lower back pain. Patient states left lower back pain began on Wednesday. 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 Patient has a history of some back problems in the past. She was taking naproxen at home without relief. 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 Pain is 5 when she is walking. It is 1-2 wet rest. No numbness or tingling. No weakness. Also reports a history of degenerative disc disease and scoliosis. Patient has been taking Tylenol without relief. Past medical history: Illnesses: Thyroid disease, depression Medications: See list Allergies: no known drug allergies Surgeries: thyroid surgery Social History: Tobacco: nonsmoker Alcohol: Nondrinker This chart was created using a voice recognition program. There maybe grammatical and/or syntax errors that are unintentional. No current facility-administered medications for this encounter. Current Outpatient Medications Medication Sig Dispense Refill ??? albuterol 108 (90 Base) MCG/ACT Aerosol Solution take 2 Puffs by inhalation every 6 hours as needed for Wheezing. 8 g 0 ??? diclofenac (CATAFLAM) 50 MG Tablet Take 1 Tablet by mouth 2 times daily for 30 days. 60 Tablet 0 ??? escitalopram (LEXAPRO) 10 MG [...] naloxone HCl (Narcan) 4 MG/0.1ML Liquid 1 [place] by Nasal route as needed (opioid overdose). [...] History Narrative ??? Not on file BP 137/80 Pulse 87 Temp 96.7 ??F (35.9 ??C) (Tympanic) Resp 20 Ht 5' 1 (1.549 m) Wt 250 lb (113.4 kg) SpO2 96% BMI 47.24 kg/m?? Review of Systems Constitutional: Negative for activity change, appetite change, chills, diaphoresis, fatigue and fever. HENT: Negative for dental problem, rhinorrhea and sore throat. Eyes: Negative for visual disturbance. Respiratory: Negative for cough, chest tightness, shortness of breath and wheezing. Cardiovascular: Negative for chest pain, palpitations and leg swelling. Gastrointestinal: Negative for abdominal pain, constipation, diarrhea, nausea and vomiting. Genitourinary: Negative for difficulty urinating, flank pain, hematuria and urgency. Musculoskeletal: Positive for back pain. Negative for arthralgias, myalgias, neck pain and neck stiffness. Skin: Negative for color change and rash. Allergic/Immunologic: Negative for food allergies. Neurological: Negative for dizziness, syncope, weakness, light-headedness, numbness and headaches. Psychiatric/Behavioral: Negative for self-injury, sleep disturbance and suicidal ideas. All other systems reviewed and are negative. Physical Exam Vitals and nursing note reviewed. Constitutional: General: She is not in acute distress. Appearance: She is well-developed. She is obese. She is not diaphoretic. HENT: Head: Normocephalic and atraumatic. Right Ear: External ear normal. Left Ear: External ear normal. Nose: Nose normal. Mouth/Throat: Mouth: Mucous membranes are moist. Pharynx: No oropharyngeal exudate. Eyes: General: Right eye: No discharge. Left eye: No discharge. Conjunctiva/sclera: Conjunctivae normal. Pupils: Pupils are equal, round, and reactive to light. Neck: Thyroid: No thyromegaly. Vascular: No JVD. Trachea: No tracheal deviation. Cardiovascular: Rate and Rhythm: Normal rate and regular rhythm. Heart sounds: Normal heart sounds. No murmur heard. Pulmonary: Effort: Pulmonary effort is normal. No respiratory distress. Breath sounds: Normal breath sounds. No wheezing or rales. Chest: Chest wall: No tenderness. Abdominal: General: Bowel sounds are normal. There is no distension. Palpations: Abdomen is soft. There is no mass. Tenderness: There is no abdominal tenderness. There is no guarding or rebound. Musculoskeletal: General: Tenderness present. Normal range of motion. Cervical back: Normal range of motion and neck supple. Comments: Mild tenderness over the left SI joint area Lymphadenopathy: Cervical: No cervical adenopathy. Skin: General: Skin is warm and dry. Capillary Refill: Capillary refill takes less than 2 seconds. Coloration: Skin is not pale. Findings: No erythema or rash. Neurological: Mental Status: She is alert and oriented to person, place, and time. Cranial Nerves: No cranial nerve deficit. Motor: No abnormal muscle tone. Coordination: Coordination normal. Deep Tendon Reflexes: Reflexes are normal and symmetric. Psychiatric: Behavior: Behavior normal. Thought Content: Thought content normal. Procedures Imaging Results None Labs Reviewed - No data to display MDM SI joint pain Impression: Patient presents with SI joint pain concerning for strain Patient's history of depression has impacted care and subsequent medical decision making. In the workup of these potential diagnoses I considered but did not pursue UTI, diskitis, fracture due to signs and symptoms on exam and initial findings not consistent with these disease processes. Interventions and treatments in the ER Eden 5 mg I considered escalation of care including observation versus admission but not warranted due to mild symptoms and admission is not indicated Plan for discharge to home. Discussed the case with patient. I will prescribe Eden 5/325 20. 1 tabp.o. q.6 hours as needed. Patient was also given diclofenac. She should use the Eden only for severe pain Patient will follow up with her primary MD. Clinical Impression 1. SI (sacroiliac) joint inflammation (HCC) 2. Sacroiliac pain Disposition: Discharged The patient remained stable throughout their ED stay. My clinical impression was discussed with thepatient/caregiver. Any labs and radiology results were reviewed. Questions were addressed as completely as possible given the information available at present. The therapeutic plan was discussed, inst ructions were given and the importance of primary care follow up was stressed and encouraged. The patient/caregiver voiced understanding of the plan, indications to return, and the need for follow up. Reasons to return to the E.D. were discussed. New Medications: New Prescriptions DICLOFENAC (CATAFLAM) 50 MG TABLET Take 1 Tablet by mouth 2 times daily for 30 days. HYDROCODONE-ACETAMINOPHEN (NORCO) 5-325 MG TABLET Take 1 Tablet by mouth every 6 hours as needed for Severe pain. NALOXONE HCL (NARCAN) 4 MG/0.1ML LIQUID 1 [place] by Nasal route as needed (opioid overdose). administer for symptoms of overdose (severe sleepiness, breathing problems, not responsive). Call 911. May use additional dose to repeat 1 spray intranasally in 2-3 minutes if needed. I have advised the patient to follow-up with: Tomasz Martinez, [address] [address] In 1 week Dispostion: Discharge * Candace Fischer RN - 11/11/2022 3:47 PM CDT Patient presents to ED room 11-2. No change in patients condition since being seen in triage. See triage note. Assessment as noted. Call light within reach. Will continue to monitor. * Lisa Waters RN - 11/11/2022 3:44 PM CDT Patient presents to ED with left lower back pain. Denies any injury to this area. States it hurts when she walks. Is unable to pick anything up. This has been going on for about 3 days now. Has been taking a medication unsure of name and tylenol and has not helped. documented in this encounter Plan of Treatment Not on file documented as of this encounter Visit Diagnoses Diagnosis SI (sacroiliac) joint inflammation (HCC)- Primary Sacroiliitis, not elsewhere classified Sacroiliac pain Disorders of sacrum documented in this encounter Administered Medications Inactive Administered Medications - up to 3 most recent administrations Medication Order MAR Action Action Date Dose Rate Site HYDROcodone-acetaminophen (NORCO) 5-325 MG per tablet 1 Tablet 1 Tablet, Oral, ONCE, 1 dose, On Wed11/11/22 at 1630, Maximum dose of acetaminophen is 4000 mg from all sources in 24 hours.If pain not effectively managed, then contact provider to discuss possibly 1) adding scheduled opioid dosing or non-opioid pain treatments, 2) increasing dosage, or 3) changing to DENTAL THERAPIST. Given 11/11/2022 4:13 PM CDT 1 Tablet documented in this encounter Active and Recently Administered Medications Times are shown in CDT. Scheduled Medication Order 11/09/2022 11/10/2022 11/11/2022 HYDROcodone-acetaminophen (NORCO) 5-325 MG per tablet 1 Tablet (COMPLETED) 1 Tablet, Oral, ONCE, 1 dose, On Wed11/11/22 at 1630, Maximum dose of acetaminophen is 4000 mg from all sources in 24 hours.If pain not effectively managed, then contact provider to discuss possibly 1) adding scheduled opioid dosing or non-opioid pain treatments, 2) increasing dosage, or 3) changing to DENTAL THERAPIST. 1613 (Given - Provid er: Candace Fischer RN) documented in this encounter Care Teams Building Custodial Supervisor Relationship Specialty Start Date End Date Tomasz Martinez, [address] [place] [address] PCP - General Physician Application Trainer 06/25/20 documented as of this encounter
--- OUTSIDE RECORDS SUMMARY | 2024-07-21 10:47 | XMS_ITS | Encounter Summary ---
Author Organization [employer] Care Team Providers Care Candlemaking Laborer Name Role Phone Tomasz Martinez Primary Care Provider [phone] Encounter Details Date Type Department Care Team (Latest Contact Info) Description 12/10/2021 Travel Social History Tobacco Use Types Packs/Day [...] suspected to have Coronavirus/COVID-19? No / Unsure 12/10/2021 3:48 PM CDT documented as of this encounter Plan of Treatment Not on file documented as of this encounter Visit Diagnoses Not on filedocumented in this encounter Care Teams Candlemaking Laborer Relationship Specialty Start Date End Date Tomasz Martinez PAC [address] [place] [address] PCP - General Physician Wireless Network Engineer 06/25/20 documented as of this encounter
--- OUTSIDE RECORDS SUMMARY | 2024-07-21 10:47 | XMS_ITS | Encounter Summary ---
Author Organization [facility] Address [address] [place] [address] Care Team Providers Care Casualty Underwriter Name Role Phone Tomasz Martinez Primary Care Provider [phone] Encounter Details Date Type Department Care Team ([facility] st Contact Info) Description 07/22/2021 11:50 AM GASSER MACHINE OPERATOR Immunization [place] [facility] Mobile Immunization [address] [place] [address] Need for vaccination (Primary Dx) Social History Tobacco Use Types [...] as of this encounter Visit Diagnoses Diagnosis Need for vaccination- Primary Need for prophylactic vaccination and inoculation against unspecified single disease documented in this encounter Care Teams Casualty Underwriter Relationship Specialty Start Date End Date Tomasz Martinez PAC [address] [place] [address] PCP - General Physician Advanced Manufacturing Vice President 06/25/20 documented as of this encounter
--- OUTSIDE RECORDS SUMMARY | 2024-07-21 10:47 | XMS_ITS | Encounter Summary ---
Author Organization [facility] Address [address] [place] [address] Phone Care Team Providers Care Shift Coordinator Name Role Phone Tomasz Martinez PAC Primary Care Provider [phone] Reason for Referral * Radiology Services (Routine) - Closed Specialty Diagnoses / Procedures Referred By Carolina coombs Referred To Contact Radiology Diagnoses Nontoxic goiter, unspecified Procedures US THYROID Tomasz Martinez, PAC [address] [place] [address] Phone: tel: fax: Referral ID Status Reason Start Date Expiration Date Visits Re quested Visits Authorized [id number] Closed 12/04/2021 1 1 Reason for Visit * Radiology Services (Routine) - Closed Specialty Diagnoses / Procedures Referred By Carolina coombs Referred To Contact Radiology Diagnoses Nontoxic goiter, unspecified Procedures US THYROID Tomasz Martinez, PAC [address] [place] [address] Phone: tel: fax: Referral ID Status Reason Start Date Expiration Date Visits Re quested Visits Authorized [id number] Closed 12/04/2021 1 1 Encounter Details Date Type Department Care Team (Late st Contact Info) Description 12/10/2021 3:52 PM CDT - 12/10/2021 11:59 PM CDT Hospital Encounter [facility] Ultrasound [address] [place] [address] SheilaTomasz munoz, PAC [address] [place] [address] Discharge Disposition: Discharged to home or Selfcare [...] PM CDT documented as of this encounter Medications at [...] or more severe pain. 20 Tablet 01/24/2021 HYDROcodone-acet aminophen (NORCO) 5-325 MG Tablet Take 1-2 Tabs by mouth every 6 hours as needed for Moderate or more severe pain. 20 Tab 06/25/2020 2 traMADol (ULTRAM) 50 MG Tablet Take 1 Tablet by mouth every 8 hours as needed for Moderate or more severe pain. 12 Tablet 01/24/2021 2 documented as of this encounter Plan of Treatment Not on file documented as of this encounter Procedures Procedure Name Priority Date/Time Associated Diagnosis Comments US THYROID Routine 12/10/2021 4:15 PM CDT Nontoxic goiter, unspecified documented in this encounter Results * US THYROID (12/10/2021 4:15 PM CDT) Anatomical Region Laterality Modality BODY N/A Ultrasound 12/12/2021 9:12 AM CDT Impressions 12/12/2021 9:14 AM CDT IMPRESSION: ?? 1. ?? Status post left thyroidectomy. 2. ?? Heterogeneously enlarged right lobe of the thyroid with increased vascularity, compatible with the history goiter. ??No concerning thyroid nodule. Narrative 12/12/2021 9:14 AM CDT EXAM DESCRIPTION: ?? US THYROID REASON FOR STUDY: ?? Nontoxic goiter, unspecified TECHNIQUE: Ultrasound of the thyroid was performed with grayscale and color doppler. COMPARISON: ?? None available FINDINGS: RIGHT: The right thyroid lobe measures ?? approximately 3.5 x 6.7 x 2.8 ??cm. ?? Heterogeneous parenchymal echotexture is noted. ?? No definitive ??focal nodule is identified. ??Increased vascular flow to the right lobe is noted. LEFT: The left thyroid lobe is absent. ??No evidence tissue in the thyroid bed. ISTHMUS: The isthmus is absent. OTHER: ?? No other significant finding. THIS IS AN ELECTRONICALLY VERIFIED FINAL REPORT 12/12/2021 9:12 AM - Electronically signed by ??Marshall Boyd M.D. AT: AT D: ??12/12/2021 9:12 AM T: ??12/12/2021 9:12 AM Report ID: [id number] Reading Location: ??[id number] Procedure Note Marshall Boyd MD - 12/12/2021 EXAM DESCRIPTION: US THYROID REASON FOR STUDY: Nontoxic goiter, unspecified TECHNIQUE: Ultrasound of the thyroid was performed with grayscale and color doppler. COMPARISON: None available FINDINGS: RIGHT: The right thyroid lobe measures approximately 3.5 x 6.7 x 2.8 cm. Heterogeneous parenchymal echotexture is noted. No definitive focal nodule is identified. Increased vascular flow to the right lobe is noted. LEFT: The left thyroid lobe is absent. No evidence tissue in the thyroid bed. ISTHMUS: The isthmus is absent. OTHER: No other significant finding. THIS IS AN ELECTRONICALLY VERIFIED FINAL REPORT 12/12/2021 9:12 AM - Electronically signed by Marshall Boyd M.D. AT: AT Report ID: [id number] Reading Location: [place] [address] IMPRESSION: 1. Status post left thyroidectomy. 2. Heterogeneously enlarged right lobe of the thyroid with increased vascularity, compatible with the history goiter. No concerning thyroid nodule. us Tomasz Martinez PAC IMG US ORDERABLES Final Resul t documented in this encounter Visit Diagnoses Diagnosis Nontoxic goiter, unspecified documented in this encounter Care Teams Shift Coordinator Relationship Specialty Start Date End Date Tomasz Martinez, PAC [address] [place] [address] PCP - General Physician Machine Installer 06/25/20 documented as of this encounter
--- OUTSIDE RECORDS SUMMARY | 2024-07-21 10:47 | XMS_ITS | Encounter Summary ---
Author Organization [facility] Address [address] [place] [address] Phone Care Team Providers Care Salesperson Women'S Dresses Name Role Phone Tomasz Martinez Primary Care Provider [phone] Reason for Visit * Reason Comments Foot Pain Encounter Details Date Type Department Care Team (Late st Contact Info) Description 01/24/2021 8:03 PM CDT - 01/24/2021 10:24 PM CDT Emergency [facility] Emergency [address] [place] [address] Robert Le, PAC [address] [place] [address] Left foot pain Discharge Disposition: Discharged to home or [...] have Coronavirus / COVID-19? No / Unsure 01/24/2021 7:51 PM CDT documented as of this encounter Last Filed Vital Signs Vital Sign Reading Time Taken Comments Blood Pressure 126/80 01/24/2021 8:01 PM CDT Pulse 81 01/24/2021 8:01 PM CDT Temperature 36.5 ??C (97.7 ??F) 01/24/2021 7:51 PM CD T Respiratory Rate 22 01/24/2021 8:01 PM CDT Oxygen Saturation 97% 01/24/2021 8:01 PM CDT Inhaled Oxygen Concentration - - Weight 97.1 kg (214 lb) 01/24/2021 8:01 PM CDT Height 154.9 cm (5' 1 ) 01/24/2021 8:01 PM CDT Body Mass Index 40.43 01/24/2021 8:01 PM CDT documented in this encounter Discharge Instructions * Attachments The following attachments cannot be sent through Care Everywhere. * HELENE (Andorran) documented in this encounter Medications at Time of Discharge escitalopram (LEXAPRO) 10 MG Tablet Take 10 [...] or more severe pain. 20 Tab 06/25/2020 02/05/2022 LORazepam (ATIVAN) 1 MG Tablet Take 0.5 Tablets by mouth every 8 hours as needed for Anxiety for up to 10 days. 10 Tablet 01/17/2021 01/27/2021 traMADol (ULTRAM) 50 MG Tablet Take 1 Tablet by mouth every 8 hours as needed for Moderate or more severe pain. 12 Tablet 01/24/2021 02/05/2022 documented as of this encounter ED Notes * Kris Pitts RN - 01/24/2021 10:23 PM CDT Pt upset we couldn't tell her what is wrong. Unable to get discharge vitals. * Kris Pitts RN - 01/24/2021 10:22 PM CDT Patient discharged. Discharge instructions and patient educational material reviewed with patient; questions and concerns addressed; patient verbalizes understanding, using teach back. Patient was given 2 prescriptions. Patient was informed no drinking alcohol, driving or operating heavy machinery while taking narcotics or muscle relaxants. Patient discharged per ambulatory mode with self as responsible republican. * Kris Pitts RN - 01/24/2021 10:20 PM CDT Pt left ankle wrapped with smitha wrap. * Robert Le PAC - 01/24/2021 10:15 PM CDT Chief Complaint Patient presents with ??? Foot Pain Elizabeth Oates is a 55 y.o. female who presents to the ED c/o left foot pain x 2 months. Patient states pain waxes and wanes. No known injury. Pain is worse with weight bearing. No deformity. Past Medical History Positives No date: Depression No date: Thyroid disease No current facility-administered medications for this encounter. Current Outpatient Medications Medication Sig Dispense Refill ??? escitalopram (LEXAPRO) 10 MG Tablet Take 10 mg by mouth daily. ??? HYDROcodone-acetaminophen (NORCO) 5-325 MG Tablet Take 1-2 Tabs by mouth every 6 hours as needed for Moderate or more severe pain. 20 Tab 0 ??? levothyroxine (SYNTHROID) 50 MCG Tablet Take 50 mcg by mouth daily. ??? LORazepam (ATIVAN) 1 MG Tablet Take 0.5 Tablets by mouth every 8 hours as needed for Anxiety for up to 10 days. 10 Tablet 0 ??? LORazepam (ATIVAN) 1 MG Tablet Take 0.5 Tabs by mouth every 8 hours as needed for Anxiety. 15 Tab 0 ??? naproxen (NAPROSYN) 500 MG Tablet Take 1 Tablet by mouth 2 times daily as needed for Moderate or more severe pain. 20 Tablet 0 ??? traMADol (ULTRAM) 50 MG Tablet Take 1 [...] Substance and Sexual Activity ??? Alcohol use: No ??? Drug use: No ??? Sexual activity: Not on file Other Topics Concern ??? Not on file Social History Narrative ??? Not on file Social Determinants of Health Social determinant risk not applicable to this patient. BP 126/80 Pulse 81 Temp 97.7 ??F (36.5 ??C) (Tympanic) Resp 22 Ht 5' 1 (1.549 m) Wt 214 lb (97.1 kg) SpO2 97% BMI 40.43 kg/m?? Review of Systems Constitutional: Negative for chills, fatigue and fever. HENT: Negative for congestion and sore throat. Respiratory: Negative for cough, chest tightness, shortness of breath and wheezing. Cardiovascular: Negative for chest pain and palpitations. Gastrointestinal: Negative for abdominal pain, constipation, diarrhea, nausea and vomiting. Genitourinary: Negative for dysuria, frequency, hematuria and urgency. Musculoskeletal: Positive for arthralgias (left foot) and gait problem. Negative for back pain. Skin: Negative for color change and wound. Neurological: Negative for dizziness, light-headedness and headaches. All other systems reviewed and are negative. Physical Exam Vitals and nursing note reviewed. Constitutional: General: She is not in acute distress. Appearance: She is well-developed. She is obese. She is not diaphoretic. HENT: Head: Normocephalic and atraumatic. Eyes: Pupils: Pupils are equal, round, and reactive to light. Neck: Thyroid: No thyromegaly. Cardiovascular: Rate and Rhythm: Normal rate and regular rhythm. Pulses: Dorsalis pedis pulses are 2+ on the right side and 2+ on the left side. Posterior tibial pulses are 2+ on the right side and 2+ on the left side. Heart sounds: Normal heart sounds. No murmur heard. Pulmonary: Effort: Pulmonary effort is normal. No respiratory distress. Breath sounds: Normal breath sounds. No wheezing, rhonchi or rales. Chest: Chest wall: No tenderness. Abdominal: General: Bowel sounds are normal. There is no distension. Palpations: Abdomen is soft. There is no mass. Tenderness: There is no abdominal tenderness. There is no guarding or rebound. Musculoskeletal: General: No tenderness. Normal range of motion. Cervical back: Normal range of motion and neck supple. Skin: General: Skin is warm and dry. Coloration: Skin is not pale. Findings: No erythema or rash. Neurological: Mental Status: She is alert and oriented to person, place, and time. Cranial Nerves: No cranial nerve deficit. Psychiatric: Behavior: Behavior normal. Procedures Imaging Results XR ANKLE 3 OR MORE VIEWS LEFT (Final result) Result time 01/24/21 20:37:39 Final result by Do Baker MD (01/24/21 20:37:39) Impression: IMPRESSION: No acute osseous abnormality. Soft tissue swelling. Prominent calcaneal enthesophytes. Narrative: EXAM DESCRIPTION: XR ANKLE 3 OR MORE VIEWS LEFT REASON FOR STUDY: Ankle pain and swelling, no known injury Ankle pain and swelling for 2 months, worse today, pain radiates up leg, no known injury TECHNIQUE: AP, lateral, and oblique radiographic views acquired of the left ankle. COMPARISON: 10/16/2020 FINDINGS: BONES/JOINTS: No acute fracture, malalignment or osseous abnormalities. The talar dome and ankle mortise are maintained. There is mild osteophyte formation at the joint spaces. SOFT TISSUES: Soft tissue prominence is present around the ankle diffusely. OTHER: Calcaneal enthesophytes are prominent. THIS IS AN ELECTRONICALLY VERIFIED FINAL REPORT 01/24/2021 8:34 PM - Electronically signed by Do Baker M.D. JS: BRANDON Report ID: [id number] Reading Location: [id number] MDM Coding Clinical Impression 1. Left foot pain Reviewed imaging with patient. Ultram and naproxen for pain. Foot and ankle were wrapped. PCP follow up in 2-3 days. Return to ED for worsening sxs. The patient remained stable throughout their ED [...] the need for follow up. Cosigned by Julian Sheth MD at 01/25/2021 5:49 AM CDT * Paula Huddleston RN - 01/24/2021 8:01 PM CDT Pt to triage via wheelchair with c/o left foot pain. States pain has been present for a while. Reports it comes and goes and she just needs to know what's going on. Reports having imaging done in the past but wasn't told the results. Some swelling noted to left outer aspect of the ankle. documented in this encounter Plan of Treatment Not on file documented as of this encounter Procedures Procedure Name Priority Date/Time Associated Diagnosis Comments XR ANKLE 3 OR MORE VIEWS LEFT STAT 01/24/2021 8:14 PM CDT documented in this encounter Results * XR ANKLE 3 OR MORE VIEWS LEFT (01/24/2021 8:14 PM CDT) Anatomical Region Laterality Modality LOWER EXTREMITY, ankle Left Digital R adiography 01/24/2021 8:34 PM CDT Impressions 01/24/2021 8:37 PM CDT IMPRESSION: ?? No acute osseous abnormality. Soft tissue swelling. Prominent calcaneal enthesophytes. Narrative 01/24/2021 8:37 PM CDT EXAM DESCRIPTION: ?XR ANKLE 3 OR MORE VIEWS LEFT REASON FOR STUDY: ?? Ankle pain and swelling, no known injury Ankle pain and swelling for 2 months, worse today, pain radiates up leg, no known injury TECHNIQUE: ?? AP, lateral, and oblique radiographic views acquired of the left ankle. COMPARISON: ?? 10/16/2020 FINDINGS: ??BONES/JOINTS: ??No acute fracture, malalignment or osseous abnormalities. The talar dome and ankle mortise are maintained. ?? There is mild osteophyte formation at the joint spaces. SOFT TISSUES: ??Soft tissue prominence is present around the ankle diffusely. OTHER: ??Calcaneal enthesophytes are prominent. THIS IS AN ELECTRONICALLY VERIFIED FINAL REPORT 01/24/2021 8:34 PM - Electronically signed by Do Baker M.D. JS: BRANDON D: ??01/24/2021 8:34 PM T: ??01/24/2021 8:34 PM Report ID: [id number] Reading Location: ??[id number] Procedure Note Do Baker MD - 01/24/2021 EXAM DESCRIPTION: XR ANKLE 3 OR MORE VIEWS LEFT REASON FOR STUDY: Ankle pain and swelling, no known injury Ankle pain and swelling for 2 months, worse today, pain radiates up leg, no known injury TECHNIQUE: AP, lateral, and oblique radiographic views acquired of the left ankle. COMPARISON: 10/16/2020 FINDINGS: BONES/JOINTS: No acute fracture, malalignment or osseous abnormalities. The talar dome and ankle mortise are maintained. There is mild osteophyte formation at the joint spaces. SOFT TISSUES: Soft tissue prominence is present around the ankle diffusely. OTHER: Calcaneal enthesophytes are prominent. THIS IS AN ELECTRONICALLY VERIFIED FINAL REPORT 01/24/2021 8:34 PM - Electronically signed by Do Baker M.D. JS: BRANDON Report ID: [id number] Reading Location: [id number] IMPRESSION: No acute osseous abnormality. Soft tissue swelling. Prominent calcaneal enthesophytes. us Julian Sheth MD IMG DIAGNOSTIC ORDERABLES Final Result documented in this encounter Visit Diagnoses Diagnosis Left foot pain- Primary Pain in limb documented in this encounter Care Teams Salesperson Women'S Dresses Relationship Specialty Start Date End Date Tomasz Martinez, [address] [place] [address] PCP - General Physician Food Preparation Kitchen Aide 06/25/20 documented as of this encounter
--- OUTSIDE RECORDS SUMMARY | 2024-07-21 10:47 | XMS_ITS | Encounter Summary ---
Author Organization [employer] Care Team Providers Care Traffic Officer Name Role Phone Tomasz Martinez Primary Care Provider [phone] Encounter Details Date Type Department Care Team (Latest Contact Info) Description 07/28/2021 Travel Social History Tobacco Use Types Packs/Day [...] have Coronavirus / COVID-19? No / Unsure 07/28/2021 6:50 PM LAB ASSOCIATE documented as of this encounter Plan of Treatment Not on file documented as of this encounter Visit Diagnoses Not on filedocumented in this encounter Additional Health Concerns Infection Onset Date Last Indicated Resolved Time COVID - 19 07/28/2021 07/28/2021 08/17/2021 12:1 6 AM LAB ASSOCIATE documented as of this encounter Care Teams Traffic Officer Relationship Specialty Start Date End Date Tomasz Martinez PAC [address] [place] [address] PCP - General Physician Drainman 06/25/20 documented as of this encounter
--- OUTSIDE RECORDS SUMMARY | 2024-07-21 10:47 | XMS_ITS | Encounter Summary ---
Author Organization [facility] Address [address] [place] [address] Phone Care Team Providers Care Dye Range Feeder Name Role Phone Tomasz Martinez Primary Care Provider [phone] Reason for Visit * Reason Comments Foot Pain Encounter Details Date Type Department Care Team (Late st Contact Info) Description 10/16/2020 2:53 PM CDT - 10/16/2020 3:46 PM CDT Emergency [facility] Emergency [address] [place] [address] Giovanni Lomeli MD Left ankle sprain Discharge Disposition: Discharged to home or Selfcare [...] have Coronavirus / COVID-19? No / Unsure 10/16/2020 2:46 PM CDT documented as of this encounter Last Filed Vital Signs Vital Sign Reading Time Taken Comments Blood Pressure 140/80 10/16/2020 3:45 PM CDT Pulse 70 10/16/2020 3:45 PM CDT Temperature 36.3 ??C (97.4 ??F) 10/16/2020 2:47 PM CD T Respiratory Rate 18 10/16/2020 2:47 PM CDT Oxygen Saturation 99% 10/16/2020 2:47 PM CDT Inhaled Oxygen Concentration - - Weight 90.7 kg (200 lb) 10/16/2020 2:47 PM CDT Height 154.9 cm (5' 1 ) 10/16/2020 2:47 PM CDT Body Mass Index 37.79 10/16/2020 2:47 PM CDT documented in this encounter Discharge Instructions * Attachments The following attachments cannot be sent through Care Everywhere. * Ankle Sprains, Treating (Barbadian) documented in this encounter Medications at Time of Discharge escitalopram (LEXAPRO) 10 MG Tablet Take 10 mg by mouth daily. levothyroxine (SYNTHROID) 50 MCG Tablet Take 50 mcg by mouth daily. LORazepam (ATIVAN) 1 MG Tablet Take 0.5 Tabs by mouth every 8 hours as needed for Anxiety. 15 Tab 07/07/2020 HYDROcodone-acet aminophen (NORCO) 5-325 MG Tablet Take 1-2 Tabs by mouth every 6 hours as needed for Moderate or more severe pain. 20 Tab 06/25/2020 02/05/2022 ibuprofen (MOTRIN) 600 MG Tablet Take 1 Tablet by mouth every 6 hours as needed for Moderate or more severe pain or Fever. 60 Tablet 10/16/2020 01/24/2021 documented as of this encounter ED Notes * Bubba Austin RN - 10/16/2020 3:44 PM CDT Patient discharged. Discharge instructions and patient educational material reviewed with patient; questions and concerns addressed; patient verbalizes understanding, using teach back. Patient was given 1 prescriptions. Patient discharged per ambulatory mode with self as responsible libertarian. * Bubba Austin RN - 10/16/2020 3:18 PM CDT XRAY at bedside * Bubba Austin RN - 10/16/2020 3:15 PM CDT Pt medicated per provider orders. Pt educated on intended effects and side effects of medication and verbalized understanding, able to provide teach back of education. * Giovanni Lomeli MD - 10/16/2020 3:00 PM CDT Chief Complaint Patient presents with ??? Foot Pain The patient is a 55-year-old female who presents the emergency department accompanied by her in a wheelchair with complaints of left lateral ankle/foot pain. She is able to bear some weight but hobbles. She rates the pain 10/10 states that it is worsened with movement and weight-bearing. She states that she twisted her ankle last evening. She does not recall the details of the incident. No current facility-administered medications for this encounter. Current Outpatient Medications Medication Sig Dispense Refill ??? escitalopram (LEXAPRO) 10 MG Tablet Take 10 mg by mouth daily. ??? HYDROcodone-acetaminophen (NORCO) 5-325 MG Tablet Take 1-2 Tabs by mouth every 6 hours as needed for Moderate or more severe pain. 20 Tab 0 ??? ibuprofen (MOTRIN) 600 MG Tablet Take 1 Tablet by mouth every 6 hours as needed for Moderate ormore severe pain or Fever. 60 Tablet 0 ??? levothyroxine (SYNTHROID) 50 MCG Tablet Take 50 mcg by mouth daily. ??? LORazepam (ATIVAN) 1 MG Tablet Take 0.5 Tabs by mouth every 8 hours as needed for Anxiety. 15 Tab 0 No Known Allergies Past Medical History [...] Never Smoker ??? Smokeless tobacco: Never Used Substance and Sexual Activity ??? Alcohol use: No ??? Drug use: No ??? Sexual activity: Not on file Other Topics Concern ??? Not on file Social History Narrative ??? Not on file Social Determinants of Health Social determinant risk not applicable to this patient. BP 140/87 Pulse 72 Temp 97.4 ??F (36.3 ??C) (Tympanic) Resp 18 Ht 5' 1 (1.549 m) Wt 200 lb (90.7 kg) SpO2 99% BMI 37.79 kg/m?? Review of Systems Constitutional: Negative. Cardiovascular: Negative. Gastrointestinal: Negative. Musculoskeletal: Positive for arthralgias and gait problem. All other systems reviewed and are negative. Physical Exam Vitals and nursing note reviewed. Constitutional: General: She is not in acute distress. Appearance: She is obese. HENT: Head: Normocephalic and atraumatic. Right Ear: External ear normal. Left Ear: External ear normal. Eyes: Extraocular Movements: Extraocular movements intact. Conjunctiva/sclera: Conjunctivae normal. Pupils: Pupils are equal, round, and reactive to light. Cardiovascular: Rate and Rhythm: Normal rate and regular rhythm. Heart sounds: Normal heart sounds. No murmur. Pulmonary: Effort: Pulmonary effort is normal. No respiratory distress. Breath sounds: Normal breath sounds. No wheezing or rales. Abdominal: Palpations: Abdomen is soft. Tenderness: There is no abdominal tenderness. There is no guarding. Comments: .Body mass index is 37.79 kg/m??. Musculoskeletal: General: Swelling and tenderness (Left lateral malleolus) present. Normal range of motion. Cervical back: Normal range of motion and neck supple. Right lower leg: No edema. Left lower leg: No edema. Skin: General: Skin is warm and dry. Neurological: General: No focal deficit present. Mental Status: She is alert and oriented to person, place, and time. Mental status is at baseline. Psychiatric: Mood and Affect: Mood normal. Behavior: Behavior normal. Procedures Imaging Results XR ANKLE 3 OR MORE VIEWS LEFT (Final result) Result time 10/16/20 15:32:50 Final result by Daniela Olmedo MD (10/16/20 15:32:50) Impression: IMPRESSION: Osteopenia. No acute fracture or malalignment. Narrative: EXAM DESCRIPTION: XR ANKLE 3 OR MORE VIEWS LEFT REASON FOR STUDY: twisted, lateral swelling Duration: 1 day TECHNIQUE: AP, lateral, and 2 oblique radiographic views acquired of the left ankle. COMPARISON: None FINDINGS: BONES/JOINTS: There is osteopenia. There is soft tissue swelling along the lateral malleolus. No acute fracture. No joint effusion. Small dorsal and plantar calcaneal enthesophyte. SOFT TISSUES: Unremarkable. OTHER: No other significant finding. THIS IS AN ELECTRONICALLY VERIFIED FINAL REPORT 10/16/2020 3:30 PM - Electronically signed by Daniela Olmedo M.D. SS: SS Report ID: [id number] Reading Location: [place] [address] Review of ankle films failed to reveal evidence of fracture or dislocation. MDM Number of Diagnoses or Management Options Left ankle sprain: new, needed workup Diagnosis management comments: Differential diagnostic considerations include fracture, dislocation, contusion, and sprain among others. Amount and/or Complexity of Data Reviewed Tests in the radiology section of CPT??: reviewed and ordered Decide to obtain previous medical records or to obtain history from someone other than the patient:yes Review and summarize past medical records: yes Independent visualization of images, tracings, or specimens: yes Risk of Complications, Morbidity, and/or Mortality Presenting problems: low Diagnostic procedures: low Management options: low Coding Clinical Impression 1. Left ankle sprain The patient remained stable throughout their ED stay. My clinical impression was discussed with thepatient/family. Radiology results were reviewed with them. I gave them the opportunity to ask questions, and addressed them as completely as possible given the information available at present. The therapeutic plan was discussed, instructions were given and the importance of primary care follow up was stressed and encouraged. The patient/family voiced understanding of the plan, indications to return, and the need for follow up. * Daniela Brian RN - 10/16/2020 2:50 PM CDT Pt to triage with c/o left foot pain since last night after twisting her foot. Denies fall. Denies swelling, redness or warmth. No deformity noted. No distress noted in triage. 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 documented in this encounter Plan of Treatment Not on file documented as of this encounter Procedures Procedure Name Priority Date/Time Associated Diagnosis Comments XR ANKLE 3 OR MORE VIEWS LEFT STAT 10/16/2020 3:17 PM CDT documented in this encounter Results * XR ANKLE 3 OR MORE VIEWS LEFT (10/16/2020 3:17 PM CDT) Anatomical Region Laterality Modality LOWER EXTREMITY, ankle Left Digital R adiography 10/16/2020 3:30 PM CDT Impressions 10/16/2020 3:32 PM CDT IMPRESSION: ?? Osteopenia. ??No acute fracture or malalignment. Narrative 10/16/2020 3:32 PM CDT EXAM DESCRIPTION: ?XR ANKLE 3 OR MORE VIEWS LEFT REASON FOR STUDY: ?? twisted, lateral swelling Duration: 1 day TECHNIQUE: ?? AP, lateral, and 2 oblique radiographic views acquired of the left ankle. COMPARISON: ?? None FINDINGS: ??BONES/JOINTS: ??There is osteopenia. ??There is soft tissue swelling along the lateral malleolus. ??No acute fracture. ??No joint effusion. ??Small dorsal and plantar calcaneal enthesophyte. SOFT TISSUES: ??Unremarkable. OTHER: ??No other significant finding. THIS IS AN ELECTRONICALLY VERIFIED FINAL REPORT 10/16/2020 3:30 PM - Electronically signed by Daniela Olmedo M.D. SS: SS D: ??10/16/2020 3:30 PM T: ??10/16/2020 3:30 PM Report ID: [id number] Reading Location: ??[id number] Procedure Note Daniela Olmedo MD - 10/16/2020 EXAM DESCRIPTION: XR ANKLE 3 OR MORE VIEWS LEFT REASON FOR STUDY: twisted, lateral swelling Duration: 1 day TECHNIQUE: AP, lateral, and 2 oblique radiographic views acquired of the left ankle. COMPARISON: None FINDINGS: BONES/JOINTS: There is osteopenia. There is soft tissue swelling along the lateral malleolus. No acute fracture. No joint effusion. Small dorsal and plantar calcaneal enthesophyte. SOFT TISSUES: Unremarkable. OTHER: No other significant finding. THIS IS AN ELECTRONICALLY VERIFIED FINAL REPORT 10/16/2020 3:30 PM - Electronically signed by Daniela Olmedo M.D. SS: SS Report ID: [id number] Reading Location: [id number] IMPRESSION: Osteopenia. No acute fracture or malalignment. Giovanni Lomeli MD IMG DIAGNOSTIC ORDERABLES F inal Result documented in this encounter Visit Diagnoses Diagnosis Left ankle sprain- Primary Sprain of ankle, unspecified site documented in this encounter Administered Medications Inactive Administered Medications - up to 3 most recent administrations Medication Order MAR Action Action Date Dose Rate Site ibuprofen (MOTRIN) tablet 600 mg 600 mg, Oral, ONCE, 1 dose, On Wed10/16/20 at 1530 Given 10/16/2020 3:15 PM CDT 600 mg documented in this encounter Active and Recently Administered Medications Times are shown in CDT. Scheduled Medication Order 10/14/2020 10/15/2020 10/16/2020 ibuprofen (MOTRIN) tablet 600 mg (COMPLETED) 600 mg, Oral, ONCE, 1 dose, On Wed10/16/20 at 1530 1515 (Given - Provid er: Bubba Austin RN) documented in this encounter Care Teams Dye Range Feeder Relationship Specialty Start Date End Date Tomasz Martinez PAC [address] [place] [address] PCP - General Physician Devops Solutions Architect 06/25/20 documented as of this encounter
--- OUTSIDE RECORDS SUMMARY | 2024-07-21 10:47 | XMS_ITS | Encounter Summary ---
Author Organization [employer] Care Team Providers Care Mattress Finisher Name Role Phone Tomasz Martinez Primary Care Provider Encounter Details Date Type Department Care Team (Latest Contact Info) Description 11/11/2022 Travel Social History Tobacco Use Types Packs/Day [...] on filedocumented in this encounter Care Teams Mattress Finisher Relationship Specialty Start Date End Date Tomasz Martinez PAC [address] [place] [address] PCP - General Physician Compensation Agent 06/25/20 documented as of this encounter
--- OUTSIDE RECORDS SUMMARY | 2024-07-21 10:47 | XMS_ITS | Encounter Summary ---
Author Organization [facility] Address [address] [place] [address] Phone Care Team Providers Care [address] Lab Technician Name Role Phone Tomasz Martinez Primary Care Provider [phone] Reason for Visit * Reason Comments Abdominal Pain Encounter Details Date Type Department Care Team (Late st Contact Info) Description 07/07/2020 1:27 PM UC ARCHITECT - 07/07/2020 3:04 PM UC ARCHITECT Emergency [facility] Emergency [address] [place] [address] Giovanni Lomeli MD Anxiety states Discharge Disposition: Discharged to home or Selfcare [...] Coronavirus / COVID-19? Yes 07/07/2020 1:21 PM UC ARCHITECT documented as of this encounter Last Filed Vital Signs Vital Sign Reading Time Taken Comments Blood Pressure 138/87 07/07/2020 3:00 PM UC ARCHITECT Pulse 79 07/07/2020 3:00 PM UC ARCHITECT Temperature 36.9 ??C (98.4 ??F) 07/07/2020 1:19 PM CS T Respiratory Rate 16 07/07/2020 1:19 PM UC ARCHITECT Oxygen Saturation 100% 07/07/2020 3:00 PM UC ARCHITECT Inhaled Oxygen Concentration - - Weight 111.1 kg (245 lb) 07/07/2020 1:19 PM UC ARCHITECT Height 154.9 cm (5' 1 ) 07/07/2020 1:19 PM UC ARCHITECT Body Mass Index 46.29 07/07/2020 1:19 PM UC ARCHITECT documented in this encounter Medications at Time [...] more severe pain. 20 Tab 06/25/2020 02/05/2022 documented as of this encounter ED Notes * Elaine Alcaraz RN - 07/07/2020 3:02 PM CST Patient discharged. Discharge instructions and patient educational material reviewed with patient; questions and concerns addressed; patient verbalizes understanding, using teach back. Patient was given 1 prescription. Patient was informed no drinking alcohol, driving or operating heavy machinery while taking narcotics or muscle relaxants. Patient discharged per ambulatory mode with steady gait. D/C'ed with Emmett cath intact. ARCHITECT * Elaine Alcaraz RN - 07/07/2020 2:05 PM CST Patient medicated as ordered. Patient educated on medication and made aware of side effects. Patient demonstrates understanding. Patient has no complaints or requests at this time. Call light within reach. ARCHITECT * Rosario Haas RN - 07/07/2020 2:01 PM CST Patient ambulated to the restroom with steady gait. ARCHITECT * Giovanni Lomeli MD - 07/07/2020 1:48 PM CST Chief Complaint Patient presents with ??? Abdominal Pain The patient is a 54-year-old female who presents to the emergency department ambulatory from home with COVID symptoms. She began having cough and runny nose on June 28. She was tested on the 01 July and found out that she was positive on July 04. She has been having some cough without shortness of breath, low crampy abdominal pain, diarrhea, along with a feeling of fatigue and ???a funny feeling in my head.?? She admits to lightheadedness without syncope. She denies chest painshe is afebrile here and room-air saturations are 98%. No current facility-administered medications for this encounter. [...] file Occupational History ??? Not on file Social Needs ??? Financial resource strain: Not on file ??? Food insecurity Worry: Not on file Inability: Not on file ??? Transportation needs Medical: Not on file Non-medical: Not on file Tobacco Use ??? Smoking status: Never Smoker ??? Smokeless tobacco: Never Used Substance and Sexual Activity ??? Alcohol use: No ??? Drug use: No ??? Sexual activity: Not on file Lifestyle ??? Physical activity Days per week: Not on file Minutes per session: Not on file ??? Stress: Not on file Relationships ??? Social connections Talks on phone: Not on file Gets together: Not on file Attends anabaptism service: Not on file Active member of club or organization: Not on file Attends meetings of clubs or organizations: Not on file Relationship status: Not on file ??? Intimate partner violence Fear of current or ex partner: Not on file Emotionally abused: Not on file Physically abused: Not on file Forced sexual activity: Not on file Other Topics Concern ??? Not on file Social History Narrative ??? Not on file BP 138/78 Pulse 85 Temp 98.4 ??F (36.9 ??C) (Tympanic) Resp 16 Ht 5' 1 (1.549 m) Wt 245 lb (111.1 kg) SpO2 99% BMI 46.29 kg/m?? Review of Systems Constitutional: Positive for chills and fatigue. HENT: Positive for congestion and rhinorrhea. Respiratory: Positive for cough and shortness of breath. Gastrointestinal: Positive for abdominal pain and diarrhea. Genitourinary: Negative. Musculoskeletal: Positive for myalgias. Skin: Negative. Neurological: Positive for dizziness. Psychiatric/Behavioral: The patient is nervous/anxious. All other systems reviewed and are negative. Physical Exam Vitals signs and nursing note reviewed. Constitutional: Appearance: She is well-developed. She is obese. Abdominal: General: Abdomen is protuberant. Palpations: Abdomen is soft. Tenderness: There is no abdominal tenderness. There is no guarding. Hernia: No hernia is present. Comments: Body mass index is 46.29 kg/m??. Obesity limited exam Skin: General: Skin is warm and dry. Neurological: General: No focal deficit present. Mental Status: She is alert and oriented to person, place, and time. Psychiatric: Mood and Affect: Mood is anxious and depressed. Labs Reviewed CMP (COMPREHENSIVE METABOLIC PANEL) - Abnormal; Notable for the following components: Result Value CREATININE, BLOOD 0.58 (*) All other components within normal limits CBC WITH AUTO DIFFERENTIAL - Abnormal; Notable for the following components: WBC 3.10 (*) EOSINOPHILS 5.8 (*) ABSOLUTE LYMPHOCYTES 1.01 (*) All other components within normal limits LIPASE - Normal COMPLETE BLOOD COUNT (CBC) WITH DIFF Narrative: The following orders were created for panel order Complete Blood Count (CBC) WITH Diff. Procedure Abnormality Status --------- ------ CBC with Auto Differential[[id number]] Abnormal Final result Please view results for these tests on the individual orders. EXTRA TUBES Narrative: The following orders were created for panel order Extra Tubes. Procedure Abnormality Status --------- ------ Blue Top Tube[[id number]] In process Gold Top Tube[[id number]] In process Lavender Top Tube[[id number]] In process MINT GREEN, LI HEPARIN/S...[[id number]] In process Please view results for these tests on the individual orders. BLUE TOP TUBE GOLD TOP TUBE LAVENDER TOP TUBE MINT GREEN, LI HEPARIN/SST TOP TUBE CMP (Comprehensive Metabolic Panel) Final Result Complete Blood Count (CBC) WITH Diff Final Result Lipase Final Result Extra Tubes (Results Pending) Procedures Imaging Results None MDM Number of Diagnoses or Management Options Anxiety states: new, needed workup Diarrhea due to COVID-19: established, improving Morbid obesity with BMI of 45.0-49.9, adult ([facility]): established, worsening Amount and/or Complexity of Data Reviewed Clinical lab tests: ordered and reviewed Tests in the medicine section of CPT??: ordered and reviewed Decide to obtain previous medical records or to obtain history from someone other than the patient:yes Review and summarize past medical records: yes Risk of Complications, Morbidity, and/or Mortality Presenting problems: low Diagnostic procedures: low Management options: low General comments: We will give the patient a prescription for ativan to help her with her anxiety while she recovers from COVID-19. Coding Clinical Impression 1. Diarrhea due to COVID-19 2. Anxiety states 3. Morbid obesity with BMI of 45.0-49.9, adult (HCC) ARCHITECT * Benigno Sharpe RN - 07/07/2020 1:23 PM CST pt was tested covid positive last week. she feels her symptoms are getting worse. her chief c/o is pain across her lower abd with liquid stools. she also feels tired, sob, and has non-productive cough. she denies burning with urination or frequency. she has hx tubal . ARCHITECT documented in this encounter Plan of Treatment Not on file documented as of this encounter Procedures Procedure Name Priority Date/Time Associated Diagnosis Comments EXTRA TUBES STAT 07/07/2020 1:50 PM UC ARCHITECT MELVIN JUÁREZ HEPARIN/SST TOP TUBE STAT 07/07/2020 1:50 PM UC ARCHITECT GOLD TOP TUBE STAT 07/07/2020 1:50 PM UC ARCHITECT BLUE TOP TUBE STAT 07/07/2020 1:50 PM UC ARCHITECT LAVENDER TOP TUBE STAT 07/07/2020 1:5 0 PM UC ARCHITECT CBC WITH AUTO DIFFERENTIAL STAT 07/07/2020 1:50 PM UC ARCHITECT LIPASE STAT 07/07/2020 1:50 PM UC ARCHITECT CMP (COMPREHENSIVE METABOLIC PANEL) STAT 07/07/2020 1:50 PM UC ARCHITECT COMPLETE BLOOD COUNT (CBC) WITH DIFF STAT 07/07/2020 1:50 PM UC ARCHITECT documented in this encounter Results * MELVIN JUÁREZ HEPARIN/SST TOP TUBE (07/07/2020 1:50 PM UC ARCHITECT) Blood Venous Catheter (IV) / Unknown 07/07/2020 1:50 PM UC ARCHITECT 07/07/2020 2:04 PM UC ARCHITECT us Giovanni Lomeli MD HEMATOLOGY ORDERABLES Final Result [facility] [place] [address] * Lavender Top Tube (07/07/2020 1:50 PM UC ARCHITECT) Blood Venous Catheter (IV) / Unknown 07/07/2020 1:50 PM UC ARCHITECT 07/07/2020 2:04 PM UC ARCHITECT us Giovanni Lomeli MD HEMATOLOGY ORDERABLES Final Result [facility] [place] [address] * Gold Top Tube (07/07/2020 1:50 PM UC ARCHITECT) Blood Venous Catheter (IV) / Unknown 07/07/2020 1:50 PM UC ARCHITECT 07/07/2020 2:04 PM UC ARCHITECT Giovanni Lomeli MD CHEMISTRY ORDERABLES Final Result Performing Organization Address City/[facility]/ZIP Co de Phone Number [facility] [place] [address] * Blue Top Tube (07/07/2020 1:50 PM UC ARCHITECT) Blood Venous Catheter (IV) / Unknown 07/07/2020 1:50 PM UC ARCHITECT 07/07/2020 2:04 PM UC ARCHITECT Giovanni Lomeli MD HEMATOLOGY ORDERABLES Final Result Performing Organization Address City/[facility]/ZIP Co de Phone Number [facility] [place] [address] * (ABNORMAL) CBC with Auto Differential (07/07/2020 1:50 PM UC ARCHITECT) WBC 3.10(L) 4.00 - 12.00 10(3)/mcL 07/07/2020 2:07 PM UC ARCHITECT [facility] RBC 4.30 3.80 - 5.30 10(6)/mcL 07/07/2020 2:07 PM UC ARCHITECT [facility] HEMOGLOBIN (HGB) 12.7 12.0 - 15.8 g/dL 07/07/2020 2:07 PM UC ARCHITECT [facility] HEMATOCRIT (HCT) 40.7 36.0 - 47.0 % 07/07/2020 2:07 PM UC ARCHITECT [facility] MCV 94.7 82.0 - 96.0 fL 07/07/2020 2:07 PM UC ARCHITECT [facility] MCH 29.5 26.0 - 34.0 pg 07/07/2020 2:07 PM [facility] MCHC 31.2 31.0 - 36.0 g/dL 07/07/2020 2:07 PM [facility] PLATELET COUNT 275 140 - 440 10(3)/mcL 07/07/2020 2:07 PM [facility] RDW 13.0 11.8 - 15.5 % 07/07/2020 2:07 PM [facility] MPV 9.9 9.7 - 12.4 fL 07/07/2020 2:07 PM [facility] NEUTROPHILS 52.0 47.0 - 73.0 % 07/07/2020 2:07 PM [facility] LYMPHOCYTES 32.6 18.0 - 42.0 % 07/07/2020 2:07 PM [facility] MONOCYTES 9.0 4.0 - 12.0 % 07/07/2020 2:07 PM [facility] EOSINOPHILS 5.8(H) 0.0 - 5.0 % 07/07/2020 2:07 PM [facility] BASOPHILS 0.6 0.0 - 1.0 % 07/07/2020 2:07 PM [facility] ABSOLUTE NEUTROPHILS 1.61 1.60 - 7.70 10(3)/mcL 07/07/2020 2:07 PM [facility] ABSOLUTE LYMPHOCYTES 1.01(L) 1.30 - 3.20 10(3)/mcL 07/07/2020 2:07 PM [facility] ABSOLUTE MONOCYTES 0.28 0.20 - 1.00 10(3)/mcL 07/07/2020 2:07 PM [facility] ABSOLUTE EOSINOPHIL 0.18 0.00 - 0.40 10(3)/mcL 07/07/2020 2:07 PM [facility] ABSOLUTE BASOPHILS 0.02 0.00 - 0.10 10(3)/mcL 07/07/2020 2:07 PM [facility] NRBC PER 100 WBC 0 07/07/20 20 2:07 PM UC ARCHITECT [facility] Blood Venous Catheter (IV) / Unknown 07/07/2020 1:50 PM UC ARCHITECT 07/07/2020 2:01 PM UC ARCHITECT Giovanni Lomeli MD HEMATOLOGY ORDERABLES Final Result Performing Organization Address City/[facility]/ZIP Co de Phone Number [facility] [place] [address] * Lipase (07/07/2020 1:50 PM UC ARCHITECT) LIPASE 19.4 13 - 60 U/L 07/07/2020 2:28 PM UC ARCHITECT [facility] Blood Venous Catheter (IV) / Unknown 07/07/2020 1:50 PM UC ARCHITECT 07/07/2020 2:01 PM UC ARCHITECT Giovanni Lomeli MD CHEMISTRY ORDERABLES Final Result Performing Organization Address City/[facility]/ZIP Co de Phone Number [facility] [place] [address] * (ABNORMAL) CMP (Comprehensive Metabolic Panel) (07/07/2020 1:50 PM UC ARCHITECT) SODIUM 137 136 - 144 mmol/L 07/07/2020 2:28 PM UC ARCHITECT [facility] POTASSIUM 3.5 3.5 - 5.1 mmol/L 07/07/2020 2:28 PM UC ARCHITECT [facility] CHLORIDE 101 100 - 110 mmol/L 07/07/2020 2:28 PM UC ARCHITECT [facility] CO2, VENOUS 27 22 - 32 mmol/L 07/07/2020 2:28 PM UC ARCHITECT [facility] ANION GAP 12.5 8.0 - 20.0 mmol/L 07/07/2020 2:28 PM UC ARCHITECT [facility] GLUCOSE 92 70 - 99 mg/dL 07/07/2020 2:28 PM UC ARCHITECT [facility] BUN 7 6 - 20 mg/dL 07/07/2020 2:28 PM [facility] CREATININE, BLOOD 0.58(L) 0.60 - 1.10 mg/dL 07/07/2020 2:28 PM [facility] BUN/CREATININE RATIO 07 13 - 20 ratio 07/07/2020 2:28 PM [facility] TOTAL PROTEIN 7.5 6.0 - 8.3 g/dL 07/07/2020 2:28 PM [facility] ALBUMIN 4.1 3.5 - 5.2 g/dL 07/07/2020 2:28 PM [facility] Comment: The colormetric methods used for the determination of Albumin may lead to falsely elevated test results in patients suffering from renal failure or insufficiency due to interference with other proteins. A/G RATIO 1.2 1.0 - 2.0 07/07/2020 2:28 PM [facility] CALCIUM 8.9 8.9 - 10.3 mg/dL 07/07/2020 2:28 PM [facility] T BILI <=0.2 <=1.2 mg/dL 07/07/2020 2:28 PM [facility] SGOT (AST) 20 <=32 U/L 07/07/2020 2:28 PM [facility] SGPT (ALT) 26 <=33 U/L 07/07/2020 2:28 PM [facility] ALKALINE PHOSPHATASE 88 35 - 105 U/L 07/07/2020 2:28 PM [facility] GFR, EST. NONAFRICAN >60 >=60 07/07/2020 2:28 PM [facility] GFR, EST. >60 >=60 020 2:28 PM [facility] Comment: Creatinine Clearance is the preferred criteria for selecting drug dose adjustments in renally impaired patients. ??The GFR is provided as additional pertinent clinical information. GFR is reported in mL/min/1.73 sq m. Blood Venous Catheter (IV) / Unknown 07/07/2020 1:50 PM UC ARCHITECT 07/07/2020 2:01 PM UC ARCHITECT us Giovanni Lomeli MD CHEMISTRY ORDERABLES Final Result [facility] [place] [address] documented in this encounter Visit Diagnoses Diagnosis Diarrhea due to COVID-19- Primary Anxiety states Anxiety state, unspecified Morbid obesity with BMI of 45.0-49.9, adult (HCC) documented in this encounter Administered Medications Inactive Administered Medications - up to 3 most recent administrations Medication Order MAR Action Action Date Dose Rate Site ketorolac (TORADOL) injection 15 mg 15 mg, Intravenous, ONCE, 1 dose, On 07/07/20 at 1430 Given 07/07/2020 2:05 PM UC ARCHITECT 15 mg lactated ringers infusion 1,000 mL at 999 mL/hr, Intravenous, ONCE, 1 dose, On 07/07/20 at 1430 New Bag 07/07/2020 2:05 PM UC ARCHITECT 1,000 mL 999 mL/hr documented in this encounter Active and Recently Administered Medications Times are shown in UC ARCHITECT. Scheduled Medication Order 07/05/2020 07/06/2020 07/07/2020 ketorolac (TORADOL) injection 15 mg (COMPLETED) 15 mg, Intravenous, ONCE, 1 dose, On 07/07/20 at 1430 1405 (Given - Provid er: Elaine Alcaraz RN) lactated ringers infusion 1,000 mL (COMPLETED) at 999 mL/hr, Intravenous, ONCE, 1 dose, On 07/07/20 at 1430 1405 (New Bag - Prov ider: Elaine Alcaraz RN)[id number] (Stopped - Provider: Elaine Alcaraz, ELIZABETH) documented in this encounter Care Teams Rd Lab Technician Relationship Specialty Start Date End Date Tomasz Martinez, CRISSY [address] [place] [address] PCP - General Physician Supervisor Instrument Mechanics 06/25/20 documented as of this encounter
--- OUTSIDE RECORDS SUMMARY | 2024-07-21 10:47 | XMS_ITS | Encounter Summary ---
Author Organization [facility] Care Team Providers Care Geophysical Operator Name Role Phone Tomasz Martinez Primary Care Provider [phone] Encounter Details Date Type Department Care Team (Latest Contact Info) Description 01/24/2021 Travel Social History Tobacco Use Types Packs/Day [...] on filedocumented in this encounter Care Teams Geophysical Operator Relationship Specialty Start Date End Date Tomasz Martinez PAC [address] [place] [address] PCP - General Physician Guest Services Lead 06/25/20 documented as of this encounter
--- OUTSIDE RECORDS SUMMARY | 2024-07-21 10:47 | XMS_ITS | Encounter Summary ---
Author Organization [facility] Care Team Providers Care Radiator Core Tester Name Role Phone Tomasz Martinez Primary Care Provider [phone] Encounter Details Date Type Department Care Team (Latest Contact Info) Description 06/25/2020 Travel Social History Tobacco Use Types Packs/Day [...] have Coronavirus / COVID-19? No / Unsure 06/25/2020 9:46 PM DAY CAMP UNIT LEADER documented as of this encounter Plan of Treatment Not on file documented as of this encounter Visit Diagnoses Not on filedocumented in this encounter Care Teams Radiator Core Tester Relationship Specialty Start Date End Date Tomasz Martinez PAC [address] [place] [address] PCP - General Physician Concrete Batcher 06/25/20 documented as of this encounter
--- OUTSIDE RECORDS SUMMARY | 2024-07-21 10:47 | XMS_ITS | Encounter Summary ---
Author Organization [facility] Address [address] [place] [address] Phone Care Team Providers Care Stull Hewer Name Role Phone Tomasz Martinez Primary Care Provider [phone] Reason for Visit * Reason Comments Cough Encounter Details Date Type Department Care Team ([facility] st Contact Info) Description 07/28/2021 6:53 PM [facility] - 07/28/2021 9:52 PM [facility] Emergency [facility] Emergency [address] [place] [address] Radha Orozco, PAC [address] [place] [address] Acute bronchitis Discharge Disposition: Discharged to home or Selfcare [...] COVID-19? No / Unsure 07/28/2021 6:50 PM [facility] documented as of this encounter Last Filed Vital Signs Vital Sign Reading Time Taken Comments Blood Pressure 142/85 07/28/2021 9:51 PM [facility] Pulse 86 07/28/2021 9:51 PM [facility] Temperature 36.8 ??C (98.2 ??F) 07/28/2021 6:51 PM CS T Respiratory Rate 20 07/28/2021 9:51 PM [facility] Oxygen Saturation 99% 07/28/2021 9:51 PM [facility] Inhaled Oxygen Concentration - - Weight 103.4 kg (228 lb) 07/28/2021 6:51 PM [facility] Height 154.9 cm (5' 1 ) 07/28/2021 6:51 PM [facility] Body Mass Index 43.08 07/28/2021 6:51 PM [facility] documented in this encounter Discharge Instructions * Discharge Instructions* Radha Orozco PAC - 07/28/2021 9:31 PM [facility] Please follow up with your primary care provider. Return for reevaluation if your symptoms change or worsen. Please take benadryl at bedtime if needed. [facility] * Attachments The following attachments cannot be sent through Care Everywhere. * Viral Respiratory Infection (Bahamian) documented in this encounter Medications at Time [...] more severe pain. 20 Tab 06/25/2020 2 predniSONE (DELTASONE) 20 MG Tablet Take 1 Tablet by mouth daily for 5 days. 15 Tablet 07/28/2021 2 traMADol (ULTRAM) 50 MG Tablet Take 1 Tablet by mouth every 8 hours as needed for Moderate or more severe pain. 12 Tablet 01/24/2021 2 documented as of this encounter ED Notes * Ginna Bey RN - 07/28/2021 9:51 PM CST Patient discharged. Discharge instructions and patient educational material reviewed with patient; questions and concerns addressed; patient verbalizes understanding, using teach back. Patient was given 2 prescriptions. Patient discharged per ambulatory mode as responsible democrat. [facility] [employer] [facility] * Radha Orozco, PAC - 07/28/2021 7:56 PM CST Chief Complaint Patient presents with ??? Cough HPI Elizabeth Oates is a 56 y.o. female who presents due to a cough and nasal congestion which has been occurring for the past week. She states she has felt slightly sob intermittently. She states she also has been picking at her L ear and thinks she may have scratched her canal. Her has been sick with similar symptoms. She denies any fever, dizziness, chest pain, vomiting, diarrhea, dysuria, or abdominal pain. PMH includes depression and hypothyroidism. She is a nonsmoker. No current facility-administered medications for this encounter. [...] more severe pain. 20 Tablet 0 ??? predniSONE (DELTASONE) 20 MG Tablet Take 1 Tablet by mouth daily for 5 days. 15 Tablet 0 ??? traMADol (ULTRAM) 50 MG [...] risk not applicable to this patient. BP 147/84 Pulse 95 Temp 98.2 ??F (36.8 ??C) (Tympanic) Resp 18 Ht 5' 1 (1.549 m) Wt 228 lb (103.4 kg) SpO2 100% BMI 43.08 kg/m?? Review of Systems Constitutional: Negative for chills and fever. HENT: Positive for congestion and ear pain. Negative for rhinorrhea and sore throat. Eyes: Negative for discharge. Respiratory: Positive for cough and shortness of breath. Negative for chest tightness and wheezing. Cardiovascular: Negative for chest pain [...] ear normal. Left Ear: External ear normal. Ears: Comments: L ear canal with a scab. No edema or erythema. Eyes: Conjunctiva/sclera: Conjunctivae normal. Pupils: Pupils are equal, round, and reactive to light. Neck: Trachea: No tracheal deviation. Cardiovascular: Rate and Rhythm: Normal rate and regular rhythm. Heart sounds: Normal heart sounds. No murmur heard. Pulmonary: Effort: Pulmonary effort is normal. No respiratory distress. Breath sounds: Rhonchi present. No wheezing or rales. Abdominal: General: Bowel [...] Nerves: No cranial nerve deficit. Labs Reviewed SARS-COV-2 BY MOLECULAR - Normal Narrative: This [...] information for Clinicians can be found at: https://www.fda.gov/media/053107/download Additional information for Patients can be found at: https://www.fda.gov/media/491531/download XR CHEST SINGLE VIEW PORTABLE Final Result IMPRESSION: No acute cardiopulmonary disease. Labs Reviewed SARS-COV-2 BY MOLECULAR - Normal Narrative: This [...] information for Clinicians can be found at: https://www.fda.gov/media/229966/download Additional information for Patients can be found at: https://www.fda.gov/media/667991/download XR CHEST SINGLE VIEW PORTABLE Final Result IMPRESSION: No acute cardiopulmonary disease. Procedures Imaging Results XR CHEST SINGLE VIEW PORTABLE (Final result) Result time 07/28/21 20:11:21 Final result by Jourdan Aparicio MD (07/28/21 20:11:21) Impression: IMPRESSION: No acute cardiopulmonary disease. Narrative: EXAM DESCRIPTION: XR CHEST SINGLE VIEW PORTABLE REASON FOR STUDY: c/o cough and left ear pain for approx. 1 week. TECHNIQUE: Frontal radiographic view of the chest acquired. COMPARISON: 01/17/2021 FINDINGS: LUNGS/PLEURA: No focal consolidation or pneumothorax. No pleural effusion. HEART/MEDIASTINUM: Heart size is normal. Normal mediastinal and hilar contours. HARDWARE/LINES/TUBES: None. BONES: No acute findings. OTHER: No other significant finding. THIS IS AN ELECTRONICALLY VERIFIED FINAL REPORT 07/28/2021 8:08 PM - Electronically signed by Jourdan Aparicio M.D. RW: RADHA Report ID: [id number] Reading Location: [place] [address] Labs Reviewed SARS-COV-2 BY MOLECULAR - Normal Narrative: This [...] information for Clinicians can be found at: https://www.fda.gov/media/967373/download Additional information for Patients can be found at: https://www.fda.gov/media/731835/download MDM Coding Clinical Impression 1. Acute bronchitis Patient was started on prednisone and given an albuterol inhaler. Encouraged close f/u with her pmdand to return for reevaluation if sx change or worsen. Cosigned by Giovanni Lomeli MD at 07/29/2021 4:26 AM [facility] [employer] * Ginna Bey RN - 07/28/2021 7:31 PM CST No change in pt condition since triage, see triage note. Pt denies any SOB or CP. Respirations are even and non-labored. Lung sounds clear ROCCO [facility] * Rosario Haas RN - 07/28/2021 6:49 PM CST Patient ambulatory to triage with c/o cough and left ear pain for approx. 1 week. States she gets this crap every year and that she asked her PMD for some medicine but her PMD wouldn't prescribe it until she was tested for COVID. Respirations even and unlabored; VSS in triage [employer] [employer] [facility] documented in this encounter Plan of Treatment Not on file documented as of this encounter Procedures Procedure Name Priority Date/Time Associated Diagnosis Comments XR CHEST SINGLE VIEW PORTABLE STAT 07/28/2021 7:57 PM [facility] SARS-COV-2 BY MOLECULAR STAT 07/28/2021 7:57 PM [facility] [employer] [facility] documented in this encounter Results * XR CHEST SINGLE VIEW PORTABLE (07/28/2021 7:57 PM [facility] [employer] [facility]) Anatomical Region Laterality Modality Chest N/A Digital Radiogra phy 07/28/2021 8:08 PM [facility] Impressions 07/28/2021 8:11 PM [facility] IMPRESSION: ?? No acute cardiopulmonary disease. Narrative 07/28/2021 8:11 PM [facility] [employer] [facility] EXAM DESCRIPTION: ?? XR CHEST SINGLE VIEW PORTABLE REASON FOR STUDY: ?? c/o cough and left ear pain for approx. 1 week. ?? TECHNIQUE: ?? Frontal ??radiographic view of the chest acquired. COMPARISON: ?? 01/17/2021 FINDINGS: LUNGS/PLEURA: ?? No focal consolidation or pneumothorax. No pleural effusion. HEART/MEDIASTINUM: ?? Heart size is normal. Normal mediastinal and hilar contours. HARDWARE/LINES/TUBES: ?? None. BONES: ?? No acute findings. OTHER: ?? No other significant finding. THIS IS AN ELECTRONICALLY VERIFIED FINAL REPORT 07/28/2021 8:08 PM - Electronically signed by ??Jourdan Aparicio M.D. RW: RADHA D: ??07/28/2021 8:08 PM T: ??07/28/2021 8:08 PM Report ID: [id number] Reading Location: ??[id number] Procedure Note Jourdan Aparicio MD - 07/28/2021 EXAM DESCRIPTION: XR CHEST SINGLE VIEW PORTABLE REASON FOR STUDY: c/o cough and left ear pain for approx. 1 week. TECHNIQUE: Frontal radiographic view of the chest acquired. COMPARISON: 01/17/2021 FINDINGS: LUNGS/PLEURA: No focal consolidation or pneumothorax. No pleural effusion. HEART/MEDIASTINUM: Heart size is normal. Normal mediastinal and hilar contours. HARDWARE/LINES/TUBES: None. BONES: No acute findings. OTHER: No other significant finding. THIS IS AN ELECTRONICALLY VERIFIED FINAL REPORT 07/28/2021 8:08 PM - Electronically signed by Jourdan Aparicio M.D. RW: RADHA Report ID: [id number] Reading Location: [id number] IMPRESSION: No acute cardiopulmonary disease. Radha Hough Page PAC IMG DIAGNOSTIC ORDERABLES Fi nal Result * SARS-COV-2 BY MOLECULAR (07/28/2021 7:57 PM [facility]) SARSCOV2 NOT DETECTED (Referenc e Range for this test is Not Detected) [facility] ID NOW 07/28/2021 8:52 PM [facility] Comment:This test was perfor med by a MOLECULAR, NON-PCR method Other NASAL STRUCTURE / Unknown Non-Phlebotomy Collection / Unknown 07/28/2021 7:57 PM [facility] 07/28/2021 8:01 PM [facility] Narrative [facility] - 07/28/2021 8:52 PM [facility] [employer] [facility] This test has been authorized by the [...] information for Clinicians can be found at: https://www.fda.gov/media/955802/download Additional information for Patients can be found at: https://www.fda.gov/media/973672/download us Radha Hough Page PAC MICROBIOLOGY - GENERAL ORDER BRYON Final Result [facility] [address] [place] [address] documented in this encounter Visit Diagnoses Diagnosis Acute bronchitis- Primary documented in this encounter Additional Health Concerns Infection Onset Date Last Indicated Resolved Time COVID - 19 07/28/2021 07/28/2021 08/17/2021 12:1 6 AM [facility] documented as of this encounter Care Teams Stull Hewer Relationship Specialty Start Date End Date Tomasz Martinez, PAC [address] [place] [address] PCP - General Physician Curb Hop 06/25/20 documented as of this encounter
--- OUTSIDE RECORDS SUMMARY | 2024-07-21 10:47 | XMS_ITS | Encounter Summary ---
Author Organization [facility] Address [address] [place] [address] Phone Care Team Providers Care Epic Trainer Name Role Phone Tomasz Martinez Primary Care Provider [phone] Reason for Visit * Reason Comments Chest Pain Encounter Details Date Type Department Care Team ([facility] st Contact Info) Description 01/17/2021 10:26 PM CDT - 01/18/2021 12:09 AM CDT Emergency [facility] Emergency [address] [place] [address] Cesar Galvan MD [address] [place] [address] Palpitations Discharge Disposition: Discharged to home or Selfcare [...] Sign Reading Time Taken Comments Blood Pressure 129/78 01/18/2021 12:00 AM CDT Pulse 78 01/18/2021 12:00 AM CDT Temperature 35.9 ??C (96.6 ??F) 01/17/2021 10:34 PM C DT Respiratory Rate 17 01/18/2021 12:00 AM CDT Oxygen Saturation 93% 01/18/2021 12:00 AM CDT Inhaled Oxygen Concentration - - Weight 111.6 kg (246 lb) 01/17/2021 10:34 PM CDT Height 154.9 cm (5' 1 ) 01/17/2021 10:34 PM CDT Body Mass Index 46.48 01/17/2021 10:34 PM CDT documented in this encounter Discharge Instructions * Attachments The following attachments cannot be sent through Care Everywhere. * Anxiety, Your Body's Response to (Palestinian) * Palpitations (Palestinian) documented in this encounter Medications at Time [...] pain or Fever. 60 Tablet 10/16/2020 01/24/2021 LORazepam (ATIVAN) 1 MG Tablet Take 0.5 Tablets by mouth every 8 hours as needed for Anxiety for up to 10 days. 10 Tablet 01/17/2021 01/27/2021 documented as of this encounter ED Notes * Do Mills RN - 01/18/2021 12:08 AM CDT Patient discharged. Discharge instructions and patient educational material reviewed with patient; questions and concerns addressed; patient verbalizes understanding, using teach back. Patient was given 1 prescriptions. Patient was informed no drinking alcohol, driving or operating heavy machinery while taking narcotics or muscle relaxants. Patient discharged per ambulatory mode with spouse as responsible republican. SL D/C'ed with Emmett cath intact. * Do Mills RN - 01/17/2021 10:50 PM CDT Pt medicated per provider orders. Pt educated on intended effects and side effects of medication and verbalized understanding, able to provide teach back of education. * Candace Fischer RN - 01/17/2021 10:32 PM CDT Patient presents ambulatory to ED room 3 from home with complaints of intermittent medial chest pain onset around [id number] this afternoon. States that pain feels weird and like a panic attack. Intermittent SOB. Nausea without emesis. Denies any cardiac history. Patient hooked up to cardiac, SPO2 and NIBP monitoring. Cardiac protocol initiated. EKG obtained. ERP at bedside. * Cesar Galvan MD - 01/17/2021 10:29 PM CDTAssociated Order(s): EKG 12 LEAD Chief Complaint Patient presents with ??? Chest Pain HPI 55-year-old female presenting with an unusual sensation intermittently in her chest since about 4:00 p.m.. She has a hard time describing it does not stated his pain, nor did she have shortness of breath more of a unusual palpitation type feeling. She felt in her usual state of health yesterday. She feels very anxious when she has the sensation. No nausea no vomiting no diarrhea and no fever. Shehas been vaccinated for COVID-19. She has not had any medications or interventions to treat this since it began. No current facility-administered medications for this encounter. [...] risk not applicable to this patient. BP 129/78 Pulse 78 Temp 96.6 ??F (35.9 ??C) (Tympanic) Resp 17 Ht 5' 1 (1.549 m) Wt 246 lb (111.6 kg) SpO2 93% BMI 46.48 kg/m?? Review of Systems Constitutional: Negative for activity change, chills and fever. Respiratory: Negative for shortness of breath, wheezing and stridor. Cardiovascular: Poorly characterized intermittent chest discomfort Gastrointestinal: Negative for abdominal pain, diarrhea and nausea. Psychiatric/Behavioral: The patient is nervous/anxious. All other [...] is normal. Breath sounds: Normal breath sounds. Chest: Chest wall: No mass, deformity or tenderness. Abdominal: General: Abdomen is flat. Palpations: Abdomen is soft. Musculoskeletal: General: Normal range of motion. Cervical back: Normal range of motion. Skin: General: Skin is warm and dry. Capillary Refill: Capillary refill takes less than 2 seconds. Neurological: General: No focal deficit present. Mental Status: She is alert and oriented to person, place, and time. Psychiatric: Mood and Affect: Mood is anxious. Behavior: Behavior normal. EKG 12 LEAD Performed by: Cesar Galvan MD Authorized by: Cesar Galvan MD ECG reviewed by ED Physician in the absence of a feed mill tender: yes Interpretation: Interpretation: non-specific Rate: ECG rate: 83 QRS: QRS axis: Indeterminate (Borderline left) Other findings: Other findings comment: Voltage criteria for LVH also low QRS voltage in precordial leads. Imaging Results XR CHEST 2 VIEWS (Final result) Result time 01/17/21 23:52:40 Final result by Jerzy Palma DO (01/17/21 23:52:40) Impression: IMPRESSION: 1. No acute cardiopulmonary process is identified. Narrative: EXAM DESCRIPTION: XR CHEST 2 VIEWS REASON FOR STUDY: Intermittent chest pain with palpitations since this afternoon. Shortness of breath. TECHNIQUE: Frontal and lateral radiographic views of the chest acquired. COMPARISON: None. FINDINGS: LUNGS/PLEURA: No focal consolidation or pneumothorax. No pleural effusion. HEART/MEDIASTINUM: Uncoiling and atherosclerosis of the aorta. Normal heart size. No pulmonary vascular congestion. HARDWARE/LINES/TUBES: None. BONES: Degenerative changes of the thoracic spine. OTHER: No other significant finding. THIS IS AN ELECTRONICALLY VERIFIED FINAL REPORT 01/17/2021 11:49 PM - Electronically signed by Jerzy Palma D.O. : Report ID: [id number] Reading Location: [address] Number of Diagnoses or Management Options Amount and/or Complexity of Data Reviewed Clinical lab tests: ordered and reviewed Tests in the radiology section of CPT??: ordered and reviewed Review and summarize past medical records: yes Independent visualization of images, tracings, or specimens: yes Patient presented with poorly characterized as chest discomfort associated with anxiety, EKG not indicative of any acute coronary syndrome or concerning findings, symptoms ongoing for approximately 8hours prior to evaluation, troponin negative, chest x-ray unremarkable. Suspect anxiety related. Discharge with p.r.n. antianxiety medications and follow-up with PCP. Coding Clinical Impression 1. Palpitations 2. Anxiety states documented in this encounter Plan of Treatment Pending Results Name Type Priority Associated Diagnoses Date /Time EKG 12 LEAD ECG STAT 01/18/2021 1: 25 AM CDT documented as of this encounter Procedures Procedure Name Priority Date/Time Associated Diagnosis Comments EKG 12 LEAD STAT 01/18/2021 1:25 AM CDT Procedure Note - Cesar Galvan MD - 01/17/2021 10:29 PM CDTThis note is in progress. Chief Complaint Patient presents with ? ? Chest Pain HPI 55-year-old female presenting with an unusual sensation intermittently inher chest since about 4:00 p.m.. She has a hard time describing it doesnot stated his pain, nor did she have shortness of breath more of aunusual palpitation type feeling. She felt in her usual state of healthyesterday. She feels very anxious when she has the sensation. No nauseano vomiting no diarrhea and no fever. She has been vaccinated forCOVID-19. She has not had any medications or interventions to treat thissince it began. No current facility-administered medications for this encounter. Current Outpatient Medications Medication Sig Dispense Refill ? ? escitalopram (LEXAPRO) 10 MG Tablet Take 10 mg by mouth daily. ? ? HYDROcodone-acetaminophen (NORCO) 5-325 MG Tablet Take 1-2 Tabs by mouthevery 6 hours as needed for Moderate or more severe pain. 20 Tab 0 ? ? ibuprofen (MOTRIN) 600 MG Tablet Take 1 Tablet by mouth every 6 hours asneeded for Moderate or more severe pain or Fever. 60 Tablet 0 ? ? levothyroxine (SYNTHROID) 50 MCG Tablet Take 50 mcg by mouth daily. ? ? LORazepam (ATIVAN) 1 MG Tablet Take 0.5 Tablets by mouth every 8 hoursas needed for Anxiety for up to 10 days. 10 Tablet 0 ? ? LORazepam (ATIVAN) 1 MG Tablet Take 0.5 Tabs by mouth every 8 hours asneeded for Anxiety. 15 Tab 0 No Known Allergies Past Medical History Positives Diagnosis Date ? ? Depression ? ? Thyroid disease Past Surgical History: Procedure Laterality Date ? ? THYROID SURGERY Social History Socioeconomic History ? ? Marital status: Spouse name: Not on file ? ? Number of children: Not on file ? ? Years of education: Not on file ? ? Highest education level: Not on file Occupational History ? ? Not on file Tobacco Use ? ? Smoking status: Never Smoker ? ? Smokeless tobacco: Never Used Vaping Use ? ? Vaping Use: Never used Substance and Sexual Activity ? ? Alcohol use: No ? ? Drug use: No ? ? Sexual activity: Not on file Other Topics Concern ? ? Not on file Social History Narrative ? ? Not on file Social Determinants of Health Social determinant risk not applicable to this patient. BP 129/78 Pulse 78 Temp 96.6 ??F (35.9 ??C) (Tympanic) Resp 17 Ht 5' 1 (1.549 m) Wt 246 lb (111.6 kg) SpO2 93% BMI 46.48 kg/m?? Review of Systems Constitutional: Negative for activity change, chills and fever. Respiratory: Negative for shortness of breath, wheezing and stridor. Cardiovascular: Poorly characterized intermittent chest discomfort Gastrointestinal: Negative for abdominal pain, diarrhea and nausea. Psychiatric/Behavioral: The patient is nervous/anxious. All other [...] is normal. Breath sounds: Normal breath sounds. Chest: Chest wall: No mass, deformity or tenderness. Abdominal: General: Abdomen is flat. Palpations: Abdomen is soft. Musculoskeletal: General: Normal range of motion. Cervical back: Normal range of motion. Skin: General: Skin is warm and dry. Capillary Refill: Capillary refill takes less than 2 seconds. Neurological: General: No focal deficit present. Mental Status: She is alert and oriented to person, place, and time. Psychiatric: Mood and Affect: Mood is anxious. Behavior: Behavior normal. EKG 12 LEAD Performed by: Cesar Galvan MD Authorized by: Cesar Galvan MD ECG reviewed by ED Physician in the absence of a feed mill tender: yes Interpretation: Interpretation: non-specific Rate: ECG rate: 83 QRS: QRS axis: Indeterminate (Borderline left) Other findings: Other findings comment: Voltage criteria for LVH also low QRS voltagein precordial leads. Imaging Results XR CHEST 2 VIEWS (Final result) Result time 01/17/21 23:52:40 Final result by Jerzy Palma DO (01/17/21 23:52:40) Impression: IMPRESSION: 1. No acute cardiopulmonary process is identified. Narrative: EXAM DESCRIPTION: XR CHEST 2 VIEWS REASON FOR STUDY: Intermittent chest pain with palpitations since this afternoon. Shortness of breath. TECHNIQUE: Frontal and lateral radiographic views of the chest acquired. COMPARISON: None. FINDINGS: LUNGS/PLEURA: No focal consolidation or pneumothorax. No pleural effusion. HEART/MEDIASTINUM: Uncoiling and atherosclerosis of the aorta. Normal heart size. No pulmonary vascular congestion. HARDWARE/LINES/TUBES: None. BONES: Degenerative changes of the thoracic spine. OTHER: No other significant finding. THIS IS AN ELECTRONICALLY VERIFIED FINAL REPORT 01/17/2021 11:49 PM - Electronically signed by Jerzy Palma D.O. : Report ID: [id number] Reading Location: [address] Number of Diagnoses or Management Options Amount and/or Complexity of Data Reviewed Clinical lab tests: ordered and reviewed Tests in the radiology section of CPT??: ordered and reviewed Review and summarize past medical records: yes Independent visualization of images, tracings, or specimens: yes Patient presented with poorly characterized as chest discomfort associatedwith anxiety, EKG not indicative of any acute coronary syndrome orconcerning findings, symptoms ongoing for approximately 8 hours prior toevaluation, troponin negative, chest x-ray unremarkable. Suspect anxietyrelated. Discharge with p.r.n. antianxiety medications and follow-up withP. Coding Clinical Impression 1. Palpitations 2. Anxiety states XR CHEST 2 VIEWS STAT 01/17/2021 11:09 PM CDT N-TERMINAL- PRO B TYPE NATRIURETIC PEPTIDE STAT 01/17/2021 10:36 PM CDT CBC WITH AUTO DIFFERENTIAL STAT 01/17/2021 10:36 PM CDT TROPONIN I (TRP I) STAT 01/17/2021 10:36 PM CDT CMP (COMPREHENSIVE METABOLIC PANEL) STAT 01/17/2021 10:36 PM CDT COMPLETE BLOOD COUNT (CBC) WITH DIFF STAT 01/17/2021 10:36 PM CDT EKG 12 LEAD STAT 01/17/2021 10:31 PM CDT documented in this encounter Results * XR CHEST 2 VIEWS (01/17/2021 11:09 PM CDT) Anatomical Region Laterality Modality Chest N/A Digital Radiogra phy 01/17/2021 11:4 9 PM CDT Impressions 01/17/2021 11:52 PM CDT IMPRESSION: ?? 1. ??No acute cardiopulmonary process is identified. Narrative 01/17/2021 11:52 PM CDT EXAM DESCRIPTION: ?? XR CHEST 2 VIEWS REASON FOR STUDY: ?? Intermittent chest pain with palpitations since this afternoon. ??Shortness of breath. TECHNIQUE: ?? Frontal and lateral radiographic views of the chest acquired. COMPARISON: ?? None. FINDINGS: ??LUNGS/PLEURA: ??No focal consolidation or pneumothorax. No pleural effusion. HEART/MEDIASTINUM: ??Uncoiling and atherosclerosis of the aorta. ?? Normal heart size. ??No pulmonary vascular congestion. HARDWARE/LINES/TUBES: ??None. BONES: ??Degenerative changes of the thoracic spine. OTHER: ??No other significant finding. THIS IS AN ELECTRONICALLY VERIFIED FINAL REPORT 01/17/2021 11:49 PM - Electronically signed by Jerzy Palma D.O. : D: ??01/17/2021 11:49 PM T: ??01/17/2021 11:49 PM Report ID: [id number] Reading Location: ??[id number] Procedure Note Jerzy Palma, DO - 01/17/2021 EXAM DESCRIPTION: XR CHEST 2 VIEWS REASON FOR STUDY: Intermittent chest pain with palpitations since this afternoon. Shortness of breath. TECHNIQUE: Frontal and lateral radiographic views of the chest acquired. COMPARISON: None. FINDINGS: LUNGS/PLEURA: No focal consolidation or pneumothorax. No pleural effusion. HEART/MEDIASTINUM: Uncoiling and atherosclerosis of the aorta. Normal heart size. No pulmonary vascular congestion. HARDWARE/LINES/TUBES: None. BONES: Degenerative changes of the thoracic spine. OTHER: No other significant finding. THIS IS AN ELECTRONICALLY VERIFIED FINAL REPORT 01/17/2021 11:49 PM - Electronically signed by Jerzy Palma D.O. : Report ID: [id number] Reading Location: [id number] IMPRESSION: 1. No acute cardiopulmonary process is identified. Cesar Galvan MD IMG DIAGNOSTIC ORDERAB LES Final Result * (ABNORMAL) CBC with Auto Differential (01/17/2021 10:36 PM CDT) WBC 3.75(L) 4.00 - 12.00 10(3)/mcL 01/17/2021 10:45 PM CDT [facility] RBC 4.08 3.80 - 5.30 10(6)/mcL 01/17/2021 10:45 PM CDT [facility] HEMOGLOBIN (HGB) 12.0 12.0 - 15.8 g/dL 01/17/2021 10:45 PM CDT [facility] HEMATOCRIT (HCT) 37.9 36.0 - 47.0 % 01/17/2021 10:[address] [facility] MCV 92.9 82.0 - 96.0 fL 01/17/2021 10:[address] [facility] MCH 29.4 26.0 - 34.0 pg 01/17/2021 10:[address] [facility] MCHC 31.7 31.0 - 36.0 g/dL 01/17/2021 10:[address] [facility] PLATELET COUNT 258 140 - 440 10(3)/mcL 01/17/2021 10:[address] [facility] RDW 13.2 11.8 - 15.5 % 01/17/2021 10:[address] [facility] MPV 10.1 9.7 - 12.4 fL 01/17/2021 10:[address] [facility] NEUTROPHILS 59.8 47.0 - 73.0 % 01/17/2021 10:[address] [facility] LYMPHOCYTES 27.5 18.0 - 42.0 % 01/17/2021 10:[address] [facility] MONOCYTES 8.5 4.0 - 12.0 % 01/17/2021 10:[address] [facility] EOSINOPHILS 3.7 0.0 - 5.0 % 01/17/2021 10:[address] [facility] BASOPHILS 0.5 0.0 - 1.0 % 01/17/2021 10:[address] [facility] ABSOLUTE NEUTROPHILS 2.24 1.60 - 7.70 10(3)/mcL 01/17/2021 10:[address] [facility] ABSOLUTE LYMPHOCYTES 1.03(L) 1.30 - 3.20 10(3)/mcL 01/17/2021 10:[address] [facility] ABSOLUTE MONOCYTES 0.32 0.20 - 1.00 10(3)/mcL 01/17/2021 10:[address] [facility] ABSOLUTE EOSINOPHIL 0.14 0.00 - 0.40 10(3)/mcL 01/17/2021 10:[address] [facility] ABSOLUTE BASOPHILS 0.02 0.00 - 0.10 10(3)/mcL 01/17/2021 10:[address] [facility] NRBC PER 100 WBC 0 01/18/20 10:[address] [facility] Blood Venipuncture / Unknown 01/17/2021 10:36 PM CDT 01/17/2021 10:41 PM CDT us Cesar Galvan MD HEMATOLOGY ORDERABLES Final Result Performing Organization Address City/State/[facility] Co de Phone Number [facility] [address] [place] [address] * NT-proBNP (01/17/2021 10:36 PM CDT) NT PROBNP 130.1 5.0 - 227.0 pg/mL 01/17/2021 11:[address] [facility] Comment:NT-proBNP values < 3 00 pg/mL have a 99% negative predictive value for excluding acute congestive heart failure (CHF) in all age groups. In the absence of renal failure, CHF is suggested in adults < 50 years of age with a NT-pro BNP > 450 pg/mL; in adults 50-75 years of age with a NT-proBNP > 900 pg/mL; and in adults > 75 years of age with a NT-proBNP > 1800 pg/mL. For patients with an e-GFR < 60 a NT-proBNP > 1200 pg/mL yields a diagnostic sensitivity and specificity of 89% and 72% for acute CHF. ([facility] data) Blood Venipuncture / Unknown 01/17/2021 10:36 PM CDT 01/17/2021 10:41 PM CDT us Cesar Galvan MD CHEMISTRY ORDERABLES F inal Result [facility] [address] [place] [address] * Troponin I (Trp I) (01/17/2021 10:36 PM CDT) [facility] TROPONIN I <0.300 <=0.300 ng/mL 01/17/2021 11:[address] [facility] Blood Venipuncture / Unknown 01/17/2021 10:36 PM CDT 01/17/2021 10:41 PM CDT Cesar Galvan MD CHEMISTRY ORDERABLES F inal Result Performing Organization Address [facility] Co de Phone Number [facility] [address] [place] [address] * (ABNORMAL) CMP (Comprehensive Metabolic Panel) (01/17/2021 10:36 PM CDT) [facility] SODIUM 137 136 - 144 mmol/L 01/17/2021 11:04 PM CDT [facility] POTASSIUM 3.7 3.5 - 5.1 mmol/L 01/17/2021 11:[address] [facility] CHLORIDE 103 100 - 110 mmol/L 01/17/2021 11:04 PM CDT [facility] CO2, VENOUS 26 22 - 32 mmol/L 01/17/2021 11:[address] [facility] ANION GAP 11.7 8.0 - 20.0 mmol/L 01/17/2021 11:[address] [facility] GLUCOSE 115(H) 70 - 99 mg/dL 01/17/2021 11:[address] [facility] BUN 8 6 - 20 mg/dL 01/17/2021 11:04 PM CDT [facility] CREATININE, BLOOD 0.53(L) 0.60 - 1.10 mg/dL 01/17/2021 11:04 PM CDT [facility] BUN/CREATININE RATIO 15 12 - 20 ratio 01/17/2021 11:04 PM CDT [facility] TOTAL PROTEIN 7.5 6.0 - 8.3 g/dL 01/17/2021 11:04 PM CDT [facility] ALBUMIN 4.0 3.5 - 5.2 g/dL 01/17/2021 11:04 PM CDT [facility] Comment: The colormetric methods used for the determination of Albumin may lead to falsely elevated test results in patients suffering from renal failure or insufficiency due to interference with other proteins. A/G RATIO 1.1 1.0 - 2.0 01/17/2021 11:04 PM CDT [facility] CALCIUM 9.1 8.9 - 10.3 mg/dL 01/17/2021 11:04 PM CDT [facility] T BILI 0.3 <=1.2 mg/dL 01/17/2021 11:04 PM CDT [facility] SGOT (AST) 18 <=32 U/L 01/17/2021 11:04 PM CDT [facility] SGPT (ALT) 14 <=41 U/L 01/17/2021 11:04 PM CDT [facility] ALKALINE PHOSPHATASE 76 35 - 105 U/L 01/17/2021 11:04 PM CDT [facility] GFR, EST. NONAFRICAN >60 >=60 01/17/2021 11:04 PM CDT [facility] GFR, EST. >60 >=60 021 11:04 PM CDT [facility] Comment: Creatinine Clearance is the preferred criteria for selecting drug dose adjustments in renally impaired patients. ??The GFR is provided as additional pertinent clinical information. GFR is reported in mL/min/1.73 sq m. Blood Venipuncture / Unknown 01/17/2021 10:36 PM CDT 01/17/2021 10:41 PM CDT Cesar Galvan MD CHEMISTRY ORDERABLES F inal Result Performing Organization Address [facility] Co de Phone Number [facility] [address] [place] [address] * EKG 12 LEAD (01/17/2021 10:31 PM CDT) Ventricular Rate BPM EXTERNAL EKG Atrial Rate BPM EXTERNAL EKG P-R Interval 182 ms EXTERNAL EKG QRS Duration 84 ms EXTERNAL EKG Q-T Duration 354 ms EXTERNAL EKG QTC CALCULATION 417 ms EXTERNAL EKG P [place] 26 degrees EXTERNAL EKG R [place] -24 degrees EXTERNAL EKG T [place] -6 degrees EXTERNAL EKG 01/17/2021 10:3 1 PM CDT Impressions EXTERNAL EKG - 01/19/2021 11:30 AM CDT Sinus rhythm Leftward axis Possible anterior infarct - age undetermined Inferior T wave abnormality is nonspecific Low QRS voltages in precordial leads Comparison Summary: No serial comparison made Summary: Abnormal ECG Confirmed by Mehran Ro17 on 01/19/2021 11:30:11 AM Narrative Procedure Note Karthikeyan Laurent MD - 01/19/2021 IMPRESSION: Sinus rhythm Leftward axis Possible anterior infarct - age undetermined Inferior T wave abnormality is nonspecific Low QRS voltages in precordial leads Comparison Summary: No serial comparison made Summary: Abnormal ECG Confirmed by Mehran Ro17 on 01/19/2021 11:30:11 AM us Cesar Galvan MD IMG ECG ORDERABLES Fin al Result Performing Organization Address [facility] Co de Phone Number EXTERNAL EKG documented in this encounter Visit Diagnoses Diagnosis Palpitations- Primary Anxiety states Anxiety state, unspecified documented in this encounter Administered Medications Inactive Administered Medications - up to 3 most recent administrations Medication Order MAR Action Action Date Dose Rate Site LORazepam (ATIVAN) injection 1 mg 1 mg, Intravenous, ONCE, 1 dose, On Wed01/17/21 at 2300, For intramuscular administration: Administer undiluted. For intravenous administration: Dilute with an equal volume of NS prior to administration. Gently invert to mix. Maximum rate of IV administration is 2mg/min. Given 01/17/2021 10:49 PM CDT 1 mg documented in this encounter Active and Recently Administered Medications Times are shown in CDT. Scheduled Medication Order 01/16/2021 01/17/2021 01/18/2021 LORazepam (ATIVAN) injection 1 mg (COMPLETED) 1 mg, Intravenous, ONCE, 1 dose, On Wed01/17/21 at 2300, For intramuscular administration: Administer undiluted. For intravenous administration: Dilute with an equal volume of NS prior to administration. Gently invert to mix. Maximum rate of IV administration is 2mg/min. 2249 (Given - Provider: Do Mills RN) documented in this encounter Care Teams Epic Trainer Relationship Specialty Start Date End Date Tomasz Martinez PAC [address] [place] [address] PCP - General Physician Chief Of Field Operations 06/25/20 documented as of this encounter
--- OUTSIDE RECORDS SUMMARY | 2024-07-21 10:47 | XMS_ITS | Encounter Summary ---
Author Organization [facility] Address [address] [place] [address] Phone Care Team Providers Care Classification Control Clerk Name Role Phone Tomasz Martinez Primary Care Provider [phone] Reason for Visit * Reason Comments Toe Pain Encounter Details Date Type Department Care Team (Late st Contact Info) Description 06/25/2020 9:50 PM COMMUNITY RECREATION PROGRAMMER - 06/25/2020 10:24 PM COMMUNITY RECREATION PROGRAMMER Emergency [facility] Emergency [address] [place] [address] Akira Dior MD [address] [place] [address] Ingrown left big toenail Discharge Disposition: Discharged to home or Selfcare [...] COVID-19? No / Unsure 06/25/2020 9:46 PM COMMUNITY RECREATION PROGRAMMER documented as of this encounter Last Filed Vital Signs Vital Sign Reading Time Taken Comments Blood Pressure 142/99 06/25/2020 9:45 PM COMMUNITY RECREATION PROGRAMMER Pulse 72 06/25/2020 9:45 PM COMMUNITY RECREATION PROGRAMMER Temperature 35.9 ??C (96.6 ??F) 06/25/2020 9:45 PM CS T Respiratory Rate 16 06/25/2020 9:45 PM COMMUNITY RECREATION PROGRAMMER Oxygen Saturation 99% 06/25/2020 9:45 PM COMMUNITY RECREATION PROGRAMMER Inhaled Oxygen Concentration - - Weight 97.1 kg (214 lb) 06/25/2020 9:45 PM COMMUNITY RECREATION PROGRAMMER Height 154.9 cm (5' 1 ) 06/25/2020 9:45 PM COMMUNITY RECREATION PROGRAMMER Body Mass Index 40.43 06/25/2020 9:45 PM COMMUNITY RECREATION PROGRAMMER documented in this encounter Discharge Instructions * Discharge Instructions* Akira Dior Sri - 06/25/2020 10:12 PM COMMUNITY RECREATION PROGRAMMER Images from the original note were not included. Infected Ingrown Toenail (Antibiotics, No Excision) An ingrown toenail occurs when the nail grows sideways into the skin alongside the nail. This can cause pain. It can also lead to an infection with redness,??swelling, and sometimes drainage. The most common cause of an ingrown toenail is trimming your nails wrong. Most people trim the nails too close to the skin and try to round the nail too tightly around the shape of the toe. When you do this, the nail can grow into the skin of your toe.??It's safer to trim the nail ending in a straight line rather than a curve. Other causes include injury or wearing shoes that are too short or tight. This can cause the same problem that happens when trimming your nails. Your genetics can also make this more likely to happen. The following are the most common symptoms of an ingrown toenail:? Pain ?? Redness ?? Swelling ?? Drainage If the infection is mild, you may be able to take care of it at home with the following measures: ?? Frequent warm water soaks ?? Keeping it clean ?? Wearing loose, comfortable shoes or sandals Another method involves??using a small piece of cotton or waxed dental floss to gently??lift up thecorner of the problem nail. Change the cotton or floss frequently, especially if it gets dirty. If your infection is mild, and the above methods aren???t working, or if the infection gets worse, see your healthcare provider. Signs of worsening infection include: ?? Swelling ?? Redness ?? Pus drainage ?? Increased pain In some cases, you may need antibiotics along with warm soaks. If after 2 to 3 days of antibiotics??the toenail doesn't get better or gets worse, part of the nail may need to be removed to drain the infection. With treatment, it can take 1 to 2 weeks to clear up completely. Home care Wound care For the next 3 days, soak and clean your toe in warm water a few times a day. ?? Twice a day for the first??3 days, clean and soak the toe as follows: 1. Soak your foot in a tub of warm water for 5 minutes. Or, hold your toe under a faucet of warm running water for??5 minute 2. Clean any remaining crust away with soap and water using a cotton swab. 3. Put a small amount of antibiotic ointment on??the infected area. ?? Change the dressing or bandage every time you soak or clean it, or whenever it becomes wet or dirty. ?? If you were prescribed antibiotics, take them as directed until they are all gone. ?? Wear comfortable shoes with a lot of toe room, or open-toe sandals, while your toe is healing. Medicines ?? You can take [id number]-tem-oypggmn medicine for pain, unless you were given a different pain medicineto use. Note: Talk with your provider before using these medicines if you have chronic liver or kidney??disease, ever had a stomach ulcer or digestive bleeding, or are taking blood-thinner medicines. ?? If you were given antibiotics, take them until they are used up or your provider tells you to stop, even if the wound looks better. This makes sure that the infection clears up. Prevention To prevent ingrown toenails: ?? Wear shoes that fit well. Don't wear shoes that pinch the toes together. ?? When you trim your toenails, don't cut them too short. Cut straight across at the top and don???t round the edges. ?? Don???t use a sharp object to clean under your nail since this might cause an infection. ?? If the toenail starts to grow into the skin again, put??a small piece of waxed dental floss or cotton under that side of the nail to help it grow out straight. Follow-up care Follow up with your healthcare provider, or as advised. If the antibiotic doesn't work, or if the condition happens again, you may need to have part of the nail removed. When to seek medical advice Call your healthcare provider right away if any of the following occur: ?? Increasing redness, pain, or swelling of the toe ?? Red streaks in the skin leading away from the wound ?? Pus or fluid drainage ?? Fever of 100.4??F (38??C) or higher, or as directed by your provider Oriana last reviewed this educational content on 03/02/2019 ?? [id number] [employer]. [address] [place] [address], [place] [address]. All rights reserved. This information is not intended as a substitute for professional medical care. Always follow your healthcare professional's instructions. YOU MAY CONTINUE TO TAKE UP TO 3 200 MG IBUPROFEN 3 TIMES DAILY FOR BASELINE PAIN CONTROL. MAY CONTINUE EPSON SALT SOAKS. CONTINUE TO WEAR SHOES/SANDALS THAT DO NOT PUT PRESSURE ON TOENAIL. MAKE APPOINTMENT WITH FENCE INSTALLER FOR DEFINITIVE CARE. START ANTIBIOTICS TOMORROW UNITY RECREATION PROGRAMMER documented in this encounter Medications at Time of Discharge escitalopram (LEXAPRO) 10 MG Tablet Take 10 mg by mouth daily. levothyroxine (SYNTHROID) 50 MCG Tablet Take 50 mcg by mouth daily. Clindamycin HCl (CLEOCIN) 300 MG Capsule Take 1 Cap by mouth every 8 hours for 10 days. TO TREAT INFECTION OF LEFT GREAT TOE 30 Cap 06/26/2020 0 HYDROcodone-acet aminophen (NORCO) 5-325 MG Tablet Take 1-2 Tabs by mouth every 6 hours as needed for Moderate or more severe pain. 20 Tab 06/25/2020 2 ibuprofen (MOTRIN) 200 MG Tablet Take 200 mg by mouth every 8 hours as needed. 0 documented as of this encounter ED Notes * Mark Garcia, RN - 06/25/2020 10:23 PM CST Patient discharged. Discharge instructions and patient educational material reviewed with patient; questions and concerns addressed; patient verbalizes understanding, using teach back. Patient was given 2 prescriptions. Patient was informed no drinking alcohol, driving or operating heavy machinery while taking narcotics or muscle relaxants. Patient discharged per ambulatory mode with self as responsible alliance party. UNITY RECREATION PROGRAMMER * Mark Garcia, RN - 06/25/2020 10:20 PM CST Pt medicated per provider orders. Pt educated on intended effects and side effects of medication and verbalized understanding, able to provide teach back of education. UNITY RECREATION PROGRAMMER * Akira Diro - 06/25/2020 10:08 PM CST Chief Complaint Patient presents with ??? Toe Pain Elizabeth Oates is a 54 y.o. female TO THE EMERGENCY DEPARTMENT AROUND 10:00 P.M. WednesdayJUNE 25, 2020 WITH COMPLAINT OF RED HEAT SWELLING PAIN LEFT GREAT TOE. SEEN AT URGENT CARE ABOUT 2 WEEKS AGO AND DIAGNOSED WITH INGROWN TOENAIL WITH SECONDARY INFECTION. TREATED WITH UNKNOWN ANTIBIOTIC. OUT OF ANTIBIOTIC. USES [id number] MOTRIN WITH LIMITED RELIEF. TRIES TO WEAR FOOTWARE THIS DOES NOT PUT PRESSURE ON INFECTED TOE FOR COMFORT. DROVE HERSELF. NO OTHER ACUTE COMPLAINTS. HEREFOR FURTHER EVALUATION MANAGEMENT. The history is provided by the patient and medical records. Toe Pain Associated symptoms: no fever No current facility-administered medications for this encounter. Current Outpatient Medications Medication Sig Dispense Refill ??? escitalopram (LEXAPRO) 10 MG Tablet Take 10 mg by mouth daily. ??? ibuprofen (MOTRIN) 200 MG Tablet Take 200 mg by mouth every 8 hours as needed. ??? levothyroxine (SYNTHROID) 50 MCG Tablet Take 50 mcg by mouth daily. No Known Allergies Past Medical History Positives [...] file Gets together: Not on file Attends gnosticist service: Not on file Active member of [...] Narrative ??? Not on file BP (!) 142/99 Pulse 72 Temp 96.6 ??F (35.9 ??C) (Tympanic) Resp 16 Ht 5' 1 (1.549 m) Wt 214 lb (97.1 kg) SpO2 99% BMI 40.43 kg/m?? Review of Systems Constitutional: Negative for appetite change, chills and fever. HENT: Negative for congestion, hearing loss, rhinorrhea and sore throat. Eyes: Negative for visual disturbance. Respiratory: Negative for cough and shortness of breath. Cardiovascular: Negative for chest pain. Gastrointestinal: Negative for abdominal pain, diarrhea, nausea and vomiting. Genitourinary: Negative for dysuria. Musculoskeletal: Positive for gait problem (DUE TO LEFT GREAT TOE PAIN). Negative for myalgias. Skin: Positive for color change ( LEFT GREAT TOE). Negative for rash. Neurological: Negative for dizziness, weakness, light-headedness and headaches. Psychiatric/Behavioral: Negative for confusion. All other systems reviewed and are negative. Physical Exam Vitals signs and nursing note reviewed. Constitutional: General: She is not in acute distress. Appearance: She is well-developed. She is obese. She is not ill-appearing, toxic-appearing or diaphoretic. HENT: Head: Normocephalic and atraumatic. Right Ear: External ear normal. Left Ear: External ear normal. Nose: Nose normal. Eyes: General: No scleral icterus. Right eye: No discharge. Left eye: No discharge. Extraocular Movements: Extraocular movements intact. Conjunctiva/sclera: Conjunctivae normal. Pupils: Pupils are equal, round, and reactive to light. Neck: Musculoskeletal: Normal range of motion and neck supple. Trachea: No tracheal deviation. Cardiovascular: Rate and Rhythm: Normal rate and regular rhythm. Heart sounds: Normal heart sounds. No murmur. No friction rub. No gallop. Pulmonary: Effort: Pulmonary effort is normal. No respiratory distress. Breath sounds: Normal breath sounds. No stridor. No wheezing or rales. Abdominal: General: Bowel sounds are normal. There is no distension. Palpations: Abdomen is soft. Tenderness: There is no abdominal tenderness. There is no guarding or rebound. Musculoskeletal: Normal range of motion. General: No tenderness. Lymphadenopathy: Cervical: No cervical adenopathy. Skin: General: Skin is warm and dry. Capillary Refill: Capillary refill takes less than 2 seconds. Coloration: Skin is not pale. Findings: Erythema (LEFT GREAT TOE WITH BILATERAL INGROWN EDGES OF TOENAIL. DRAINAGE FROM TOENAIL MARGINS. NO PARONYCHIA TO DRAIN.) present. No rash. Neurological: General: No focal deficit present. Mental Status: She is alert and oriented to person, place, and time. Cranial Nerves: No cranial nerve deficit. Psychiatric: Mood and Affect: Mood normal. Behavior: Behavior normal. Thought Content: Thought content normal. Judgment: Judgment normal. Procedures Imaging Results None MDM Coding DX: CELLULITIS LEFT GREAT TOE LEFT GREAT INGROWN TOENAIL UNITY RECREATION PROGRAMMER * Do Schulte RN - 06/25/2020 9:43 PM CST Pt presents with redness, swelling and drainage to left big toe x 2 weeks. Pt denies injury. Pt states she was seen at [facility] 2 weeks ago and given antibiotic but cannot remember the name. Pt states she did finish the antibiotic. UNITY RECREATION PROGRAMMER UNITY RECREATION PROGRAMMER documented in this encounter Plan of Treatment Not on file documented as of this encounter Visit Diagnoses Diagnosis Cellulitis of great toe- Primary Cellulitis and abscess of toe, unspecified Ingrown left big toenail Ingrowing nail documented in this encounter Administered Medications Inactive Administered Medications - up to 3 most recent administrations Medication Order MAR Action Action Date Dose Rate Site clindamycin (CLEOCIN) capsule 300 mg 300 mg, Oral, ONCE, 1 dose, On Wed06/25/20 at 2230, Indications: Skin and Soft Tissue InfectionIndications:Skin and Soft Tissue Infection Given 06/25/2020 10:17 PM COMMUNITY RECREATION PROGRAMMER 300 mg documented in this encounter Active and Recently Administered Medications Times are shown in COMMUNITY RECREATION PROGRAMMER. Scheduled Medication Order 06/23/2020 06/24/2020 06/25/2020 clindamycin (CLEOCIN) capsule 300 mg (COMPLETED) 300 mg, Oral, ONCE, 1 dose, On Wed06/25/20 at 2230, Indications: Skin and Soft Tissue Infection 2217 (Given - Provid er: Mark Garcia RN) documented in this encounter Care Teams Classification Control Clerk Relationship Specialty Start Date End Date Tomasz Martinez, [address] [place] [address] PCP - General Physician Nursing Administrator 06/25/20 documented as of this encounter
--- OUTSIDE RECORDS SUMMARY | 2024-07-21 10:47 | XMS_ITS | Encounter Summary ---
Author Organization [employer] Care Team Providers Care Wind Field Service Manager Name Role Phone Tomasz Martinez Primary Care Provider [phone] Encounter Details Date Type Department Care Team (Latest Contact Info) Description 10/16/2020 Travel Social History Tobacco Use Types Packs/Day [...] on filedocumented in this encounter Care Teams Wind Field Service Manager Relationship Specialty Start Date End Date Tomasz Martinez PAC [address] [place] [id number] PCP - General Physician Supervisor Newspaper Deliveries 06/25/20 documented as of this encounter
--- OUTSIDE RECORDS SUMMARY | 2024-07-21 10:47 | XMS_ITS | Encounter Summary ---
Author Organization [employer] Care Team Providers Care Documentation Coordinator Name Role Phone Tomasz Martinez Primary Care Provider Ford Nayak MD Unavailable Encounter Details Date Type Department Care Team (Latest Contact Info) Description 02/05/2022 Travel Social History Tobacco Use Types Packs/Day [...] suspected to have Coronavirus/COVID-19? No / Unsure 02/05/2022 12:20 PM CDT documented as of this encounter Plan of Treatment Not on file documented as of this encounter Visit Diagnoses Not on filedocumented in this encounter Care Teams Documentation Coordinator Relationship Specialty Start Date End Date Tomasz Martinez PAC [address] [place] [address] PCP - General Physician Environmental Program Manager 06/25/20 Ford Nayak MD [address] [id number] Consulting Physician Endocrinology 12/17/21 02/15/22 documented as of this encounter
--- OUTSIDE RECORDS SUMMARY | 2024-07-21 10:47 | XMS_ITS | Encounter Summary ---
Author Organization [facility] Address [address] [place] [address] Phone Care Team Providers Care Liner Assembler Name Role Phone Tomasz Martinez Primary Care Provider [phone] Encounter Details Date Type Department Care Team (Late st Contact Info) Description 03/25/2022 Patient Outreach [facility] - Endocrinology [facility] [address] [place] [phone] Ford Nayak MD [address] [phone] Social History Tobacco Use Types Packs/Day Years [...] on file documented as of this encounter Miscellaneous Notes * Telephone Encounter - Christina Wade RN - 03/25/2022 10:46 AM CDT Unable to contact patient recording states subscriber unavailable. Last visit wit Dr. Nayak was 12/25/2021 Chart indicates no endocrine problems at this time. Will remove Dr. Nayak from care Team documented in this encounter Plan of Treatment Not on file documented as of this encounter Visit Diagnoses Not on filedocumented in this encounter Care Teams Liner Assembler Relationship Specialty Start Date End Date Tomasz Martinez, [address] [place] [address] PCP - General Physician Manager Qa 06/25/20 documented as of this encounter
--- OUTSIDE RECORDS SUMMARY | 2024-07-21 10:47 | XMS_ITS | Encounter Summary ---
Author Organization [facility] Address [address] [place] [address] Phone Care Team Providers Care Family Services Worker Name Role Phone Tomasz Martinez Primary Care Provider Reason for Referral * Radiology Services (Routine) - Closed Specialty Diagnoses / Procedures Referred By Carolina coombs Referred To Contact Radiology Diagnoses Nontoxic goiter, unspecified Procedures US THYROID Tomasz Martinez, [address] [place] [address] Phone: tel: fax: Referral ID Status Reason Start Date Expiration Date Visits Re quested Visits Authorized [id number] Closed 12/04/2021 1 1 Encounter Details Date Type Department Care Team (Late st Contact Info) Description 12/04/2021 Transcribe Orders [facility] Scheduling [address] [place] [address] Tomasz Martinez, PAC [address] [place] [address] Nontoxic goiter, unspecified (Primary Dx) Social History Tobacco Use Types [...] documented as of this encounter Results * US THYROID (12/10/2021 [...] AM T: ??12/12/2021 9:12 AM Report ID: [id number] Reading Location: ??[id number] Procedure Note Marshall Boyd MD - 12/12/2021 [...] Marshall Boyd M.D. AT: AT Report ID: [id number] Reading Location: [id number] IMPRESSION: 1. Status post left thyroidectomy. 2. Heterogeneously enlarged right lobe of the thyroid with increased vascularity, compatible with the history goiter. No concerning thyroid nodule. us Tomasz Martinez PAC IMG US ORDERABLES Final Resul t documented in this encounter Visit Diagnoses Diagnosis Nontoxic goiter, unspecified- Primary Nontoxic goiter, unspecified documented in this encounter Care Teams Family Services Worker Relationship Specialty Start Date End Date Tomasz Martinez, PAC [address] [place] [address] PCP - General Physician Department Manager 06/25/20 documented as of this encounter
--- OUTSIDE RECORDS SUMMARY | 2024-07-21 10:47 | XMS_ITS | Encounter Summary ---
Author Organization [facility] Address [address] [place] [address] Phone Care Team Providers Care Film Coater Name Role Phone Tomasz Martinez Primary Care Provider [phone] Ford Nayak MD Unavailable Reason for Visit * Reason Comments Cyst Encounter Details Date Type Department Care Team (Late st Contact Info) Description 02/05/2022 12:24 PM CDT - 02/05/2022 4:08 PM CDT Emergency [facility] Emergency [address] [place] [id number] Robert Le, PAC #[address] [place] [address] Chest wall abscess Discharge Disposition: Discharged to home or Selfcare [...] Sign Reading Time Taken Comments Blood Pressure 138/74 02/05/2022 4:07 PM CDT Pulse 60 02/05/2022 4:07 PM CDT Temperature 36.4 ??C (97.6 ??F) 02/05/2022 12:21 PM C DT Respiratory Rate 18 02/05/2022 12:21 PM CDT Oxygen Saturation 99% 02/05/2022 4:07 PM CDT Inhaled Oxygen Concentration - - Weight 90.7 kg (200 lb) 02/05/2022 12:21 PM CDT Height 154.9 cm (5' 1 ) 02/05/2022 12:21 PM CDT Body Mass Index 37.79 02/05/2022 12:21 PM CDT documented in this encounter Discharge Instructions * Attachments The following attachments cannot be sent through Care Everywhere. * Skin Abscess Cvic-ki-Rdie ([place]ayan) documented in this encounter Medications at Time [...] or more severe pain. 20 Tablet 01/24/2021 cephALEXin (Keflex) 500 MG Capsule Take 1 Capsule by mouth 4 times daily for 10 days. 40 Capsule 02/05/2022 2 HYDROcodone-acet aminophen (NORCO) 5-325 MG TabletIndication s:Chest wall abscess Take 1 Tablet by mouth every 8 hours as needed for Moderate or more severe pain. 12 Tablet 02/05/2022 3 sulfamethoxazole -trimethoprim DS (Bactrim DS) 800-160 MG Tablet Take 1 Tablet by mouth 2 times daily for 10 days. 20 Tablet 02/05/2022 2 documented as of this encounter ED Notes * Adelaida Bey, RN - 02/05/2022 4:07 PM CDT Patient discharged. Discharge instructions and patient educational material reviewed with patient; questions and concerns addressed; patient verbalizes understanding, using teach back. Patient was given 3 prescriptions. Patient was informed no drinking alcohol, driving or operating heavy machinery while taking narcotics. Patient ambulatory to exit with a steady gait. * Adelaida Bey RN - 02/05/2022 3:39 PM CDT Jaron GRIDER at bedside performing I&D. * Robert Le PAC - 02/05/2022 3:08 PM CDTAssociated Order(s): Incision and Drainage Images from the original note were not included. Chief Complaint Patient presents with ??? Cyst Elizabeth Oates is a 56 y.o. female who presents to the ED c/o abscess to right axilla x 2 days. Recurrent issue. Minimal discharge with palpation reported. No fever. Past Medical History Positives No date: Depression No date: Thyroid disease Current Facility-Administered Medications Medication Dose Route Frequency Provider Last Rate Last Admin ??? lidocaine 2 % injection 20 mL 20 mL Injection Once Robert Le, CRISSY Current Outpatient Medications Medication Sig Dispense Refill ??? albuterol 108 (90 Base) MCG/ACT Aerosol Solution take 2 Puffs by inhalation every 6 hours as needed for Wheezing. 8 g 0 ??? cephALEXin (Keflex) 500 MG Capsule Take 1 Capsule by mouth 4 times daily for 10 days. 40 Capsule 0 ??? escitalopram (LEXAPRO) 10 MG Tablet [...] more severe pain. 20 Tablet 0 ??? sulfamethoxazole-trimethoprim DS (Bactrim DS) [...] History Narrative ??? Not on file BP 141/84 Pulse 59 Temp 97.6 ??F (36.4 ??C) (Tympanic) Resp 18 Ht 5' 1 (1.549 m) Wt 200 lb (90.7 kg) SpO2 98% BMI 37.79 kg/m?? Review of Systems Constitutional: Negative for chills, fatigue and fever. HENT: Negative for congestion and sore throat. Respiratory: Negative for cough, chest tightness, shortness of breath and wheezing. Cardiovascular: Negative for chest pain. Gastrointestinal: Negative for abdominal pain, constipation, diarrhea, nausea and vomiting. Musculoskeletal: Negative for arthralgias, back pain and myalgias. Skin: Positive for color change and wound. All other systems reviewed and are negative. Physical Exam Vitals and nursing note reviewed. Constitutional: General: She is not in acute distress. Appearance: She is well-developed. She is morbidly obese. She is not diaphoretic. HENT: Head: Normocephalic and atraumatic. Mouth/Throat: Dentition: Abnormal dentition. Eyes: Pupils: Pupils are equal, round, and [...] soft. Tenderness: There is no abdominal tenderness. Musculoskeletal: General: No tenderness. Normal range of motion. Cervical back: Normal range of motion and neck supple. Skin: General: Skin is warm and dry. Coloration: Skin is not pale. Findings: No erythema or rash. Neurological: Mental Status: She is alert and oriented to person, place, and time. Cranial Nerves: No cranial nerve deficit. Psychiatric: Behavior: Behavior normal. No orders to display Incision and Drainage Performed by: Robert Le PAC Authorized by: Robert Le PAC Consent: Verbal consent obtained. Risks and benefits: risks, benefits and alternatives were discussed Consent given by: patient Patient understanding: patient states understanding of the procedure being performed Patient consent: the patient's understanding of the procedure matches consent given Procedure consent: procedure consent matches procedure scheduled Relevant documents: relevant documents present and verified Test results: test results available and properly labeled Site marked: the operative site was marked Patient identity confirmed: verbally with patient and arm band Type: abscess Body area: trunk Location details: chest Anesthesia: Local Anesthetic: lidocaine 2% without epinephrine Anesthetic total: 6 mL Sedation: Patient sedated: no Scalpel size: 11 Incision type: single straight Incision depth: dermal Complexity: simple Drainage: purulent and bloody Drainage amount: moderate Imaging Results None Labs Reviewed - No data to display MDM Coding Clinical Impression 1. Chest wall abscess Wound care instructions provided. Keflex and bactrim started. [place] for pain. Warm compresses advise at home. PCP follow up in 2-3 days. Return to ED for worsening sxs The patient remained stable throughout their ED [...] the need for follow up. Cosigned by Cesar Galvan MD at 02/05/2022 4:32 PM CDT * Jerzy Church RN - 02/05/2022 12:23 PM CDT Pt to triage with c/o cyst under her right arm. States that she noticed it two days ago, and it hasbeen causing more pain now. Denies any other sx at this time. documented in this encounter Plan of Treatment Not on file documented as of this encounter Procedures Procedure Name Priority Date/Time Associated Diagnosis Comments CULTURE, AEROBIC STAT 02/05/2022 4:00 PM CDT INCISION AND DRAINAGE Routine 02/05/2022 3:08 PM CDT documented in this encounter Results * Culture, Aerobic, Wound [id number] (02/05/2022 4:00 PM CDT) CULTURE RESULTS STAPHYLOCOCCUS AUREUS 02/07/2022 5:12 PM CDT [facility] Culture ABSCESS MORPHOLOGY / Unknown Non-Phlebotomy Collection / Unknown 02/05/2022 4:00 PM CDT 02/05/2022 4:05 PM CDT Narrative Organism Antibiotic Method Susceptibility Staphylococcus aureus Clindamycin [facility] VITEK II <=0.25 mcg/ml: Susceptible Staphylococcus aureus Erythromycin [facility] VITEK II >=8 mcg/ml: Resistant Staphylococcus aureus Gentamicin [facility] VITEK II <=0.5 mcg/ml: Susceptible Staphylococcus aureus Oxacillin [facility] VITEK II <=0.25 mcg/ml: Susceptible Staphylococcus aureus Tetracycline [facility] VITEK II <=1 mcg/ml: Susceptible Staphylococcus aureus Trimeth/Sulfamethoxazole [facility] RAYMUNDO II <=10 mcg/ml: Susceptible Staphylococcus aureus Vancomycin [facility] VITEK II 1 mcg/ml: Susceptible Robert Le PAC MICROBIOLOGY - GENER AL ORDERABLES Final Result [facility] [address] [place] [address], [place] * Incision and Drainage (02/05/2022 3:08 PM CDT) Cesar Marcus MD - 02/05/2022 3:08 PM CDT Robert Le PAC ? 02/05/2022 ??3:54 PM Incision and Drainage Performed by: Robert Le PAC Authorized by: Robert Le PAC Consent: Verbal consent obtained. Risks and benefits: risks, benefits and alternatives were discussed Consent given by: patient Patient understanding: patient states understanding of the procedure being performed Patient consent: the patient's understanding of the procedure matches consent given Procedure consent: procedure consent matches procedure scheduled Relevant documents: relevant documents present and verified Test results: test results available and properly labeled Site marked: the operative site was marked Patient identity confirmed: verbally with patient and arm band Type: abscess Body area: trunk Location details: chest Anesthesia: Local Anesthetic: lidocaine 2% without epinephrine Anesthetic total: 6 mL Sedation: Patient sedated: no Scalpel size: 11 Incision type: single straight Incision depth: dermal Complexity: simple Drainage: purulent and ??bloody Drainage amount: moderate Robert Le PAC PROCEDURE/MINOR SURG ICAL ORDERABLES Final Result documented in this encounter Visit Diagnoses Diagnosis Chest wall abscess- Primary Cellulitis and abscess of trunk documented in this encounter Administered Medications Inactive Administered Medications - up to 3 most recent administrations Medication Order MAR Action Action Date Dose Rate Site HYDROcodone-acetaminophen (NORCO) 5-325 MG per tablet 1 Tablet 1 Tablet, Oral, ONCE, 1 dose, On [place] 02/05/22 at 1530, Maximum dose of acetaminophen is 4000 mg from all sources in 24 hours.If pain not effectively managed, then contact provider to discuss possibly 1) adding scheduled opioid dosing or non-opioid pain treatments, 2) increasing dosage, or 3) changing to DRAPERY MAKER. Given 02/05/2022 3:14 PM CDT 1 Tablet lidocaine 2 % injection 20 mL 20 mL, Injection, ONCE, 1 dose, On [place] 02/05/22 at 1600 Given by Other 02/05/2022 3:39 PM CDT 20 mL LIDOCAINE HCL 2 % IJ SOLN 1 dose, Starting on Blaire 02/05/22 at 1528, Until [place] 02/05/22 at 1539, Created by cabinet override documented in this encounter Active and Recently Administered Medications Times are shown in CDT. Scheduled Medication Order 02/03/2022 02/04/2022 02/05/2022 HYDROcodone-acetaminophen (NORCO) 5-325 MG per tablet 1 Tablet (COMPLETED) 1 Tablet, Oral, ONCE, 1 dose, On [place] 02/05/22 at 1530, Maximum dose of acetaminophen is 4000 mg from all sources in 24 hours.If pain not effectively managed, then contact provider to discuss possibly 1) adding scheduled opioid dosing or non-opioid pain treatments, 2) increasing dosage, or 3) changing to DRAPERY MAKER. 1514 (Given - Provid er: Adelaida Bey RN) lidocaine 2 % injection 20 mL (COMPLETED) 20 mL, Injection, ONCE, 1 dose, On [place] 02/05/22 at 1600 1539 (Given by Other - Provider: Adelaida Bey RN) documented in this encounter Care Teams Film Coater Relationship Specialty Start Date End Date Tomasz Martinez, CRISSY [address] [place] [address] PCP - General Physician Wedding Planner 06/25/20 Ford Nayak MD #[address] [address] Consulting Physician Endocrinology 12/17/21 02/15/22 documented as of this encounter
--- OUTSIDE RECORDS SUMMARY | 2024-07-21 10:48 | XMS_ITS | Continuity of Care Document ---
Author Organization [facility] (CLINICAL STUDY MANAGER) Address [address] [place] [address] Care Team Providers Care Saxophone Assembler Name Role Phone ALICIA AZEEM Primary Care Provider JOSE ROSADO Skates Operator Assessment No assessment recorded. Plan of Treatment Reminders Order Date Submit Date Provider Last Modified By Organization Details Last Modified Time Details Appointments None recorded. Lab culture, wound 2023 [facility], [address] [place] [address] 2, [place], [address], 14:45:30 Referral None recorded. Procedures None recorded. Surgeries None recorded. Imaging None recorded. Medication Orders fluconazole 150 mg tablet 2023 [id number], [address], [place], [place], [id number], 17:17:51 cephalexin 500 mg tablet 2023 [id number], [address], [place], [place], [id number], 4 10:49:27 Patient TargetsNo targets recorded. Patient InstructionsNo instructions recorded. Reason for Referral None Reported. Problems Name Problem SNOMED Code Status Onset Date Resolution Date Notes Provider Name and Address Organization Details Recorded Time Folliculitis 54973823 Active LLUVIA Osei, MELO Hassan [facility] 17:31:11 Abscess 349944246 Active LLUVIA Ose[place] [facility] 17:31:11 History of surgery 380882293 [place] LLUVIA [place] [facility] 17:31:11 History of subtotal thyroidectomy 872355279 [place] LLUVIA [place] [facility] 17:31:11 Depressive disorder 23654424 [place] LL[place] [facility] 17:31:11 Disorder of thyroid gland 61260512 [place] LLUV[place] [facility] 17:31:11 Abscess of skin and/or subcutaneous tissue 12273020 [place] LLUVIA [place] [facility] 17:31:11 Problem Notes None recorded. Procedures Surgical History Date Name Laterality Status Provider Name and Address Organization Details Recorded Time 4 I&D completed JOSE ROSADO MD Attn: Accounting,[address] [place] [address], [id number], [place] - [facility] 06/12/2024 17:19:04 3 Date of Last Pap Smear completed Mirlande Tolliver [place] - [facility] 02/10/2024 15:02:54 8 colonoscopy completed Anjanaanthony Contreras [place] [facility] 11/25/2018 10:33:20 Removal of thyroid completed Mirlande Tolliver [place] [facility] 01/01/2023 16:18:21 Imaging Results None recorded. Procedure Notes None recorded. Medical Equipment None Reported. Allergies Allergen ID Allergen Name Allergen Category Reaction Reaction Severity Criticality Documentation Date Start Date Code Code System Note Provider Name and Address Organization Details Recorded Time 597753 No known allergy (situatio n) Not available Not available Not available Not available 05/13/2021 48143 6003 SNOMED LLUVIA Osei, [place] [facility] 17:31:11 No known drug allergies Medications Name [...] Updated DateTime 4 154.94 cm 45.3 kg/m2 621122. 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 [id number] Hard Time Sleeping Information not available 04/22/2022 [...] Skin Problems N Anemia N Heart Attack ([place]) N Anxiety Disorder N Diabetes N Muscle, [...] Diagnosis/Indication Diagnosis SNOMED-CT Code Diagnosis ICD10 Code [id number] [facility] [address] [place] [address] 06/12/2024 16:04:56 06/16/2024 07:40:44 Abscess of skin and/or subcutaneous tissue 49961308 L02.91 Candidal intertrigo 2661 86016 B37.2 Health Concerns Section Related Observation LastModified by Organization Detai ls LastModified Time None Recorded Concern Status LastModified by Organization Details LastModified Time None Recorded Payers Encounter Date Sequence Insurance Name Policy Number Policy Bravo Covered Member ID Bravo Member ID Guarantor Name 06/12/2024 1 [place] [id number] Elizabeth Oates [id number] Elizabeth Oates Notes Date Note Type Note Provider Name and Address Organization Details Recorded Time 06/12/2024 text/html Right inguinal boil- Lesion appeared about 3 days ago- Has been using warm compresses- No fevers or chills. Tmax 99 today. JOSE ROSADO MD Attn: Accounting,[address] [place], [address], [place] [facility] 06/12/2024 17:24:05 OBGyn Episode No OBEpisode recorded.
--- OUTSIDE RECORDS SUMMARY | 2024-07-21 10:49 | XMS_ITS | Encounter Summary ---
Author Organization [facility] Healthcare Address [address] [place] [address] Care Team Providers Care Local Area Network Systems Adminstrator Name Role Phone Tomasz Martinez Primary Care Provider [phone] Reason for Visit * Auth/Cert (Routine) Specialty Diagnoses / Procedures Referred By Carolina t Referred To Contact Diagnoses Positive H. pylori test Dyspepsia Positive H. pylori test [A04.8] Dyspepsia [R10.13] Procedures [place] ESOPHAGOGASTRODUODENOSCOPY TRANSORAL DIAGNOSTIC ESOPHAGOGASTRODUODENOSCOPY Referral ID Status Reason Start Date Expiration Date Visits Re quested Visits Authorized [id number] 1 1 Encounter Details Date Type Department Care Team (Late st Contact Info) Description 06/07/2024 8:12 AM [employer] Anesthesia Event [address] [address] [place] [address] [facility] [address] Anesthesia Record Procedure Summary Procedure Name Responsible Anesthesiologist Anesthesia Start Time Anesthesia Stop Time ESOPHAGOGASTRODUODENOSCOPY BIOPSY Dillon Alva MD 06/07/24 0812 06/07/24 0831 Events Date Time Event Comment 06/07/2024 0807 In Room 0811 0812 An Start 0812 An Start Data 0813 Start Supplemental O2 0816 Patient Positioned Laterally 0817 An Induction The patient was reevaluated immediately before moderate or deep sedation use and before anesthesia induction. 0817 Anesthesia Ready 0817 Proc Start 0824 Proc Fin 0831 an stop data 0831 Handoff to RN I completed my handoff to the receiving nurse during which we: 1. Patient identified 2. Responsible provider identified 3. Pertinent medical history reviewed 4. Procedure type and surgical course discussed 5. Intraoperative anesthetic management and any significant issues discussed 6. Expectations and concerns for postop period discussed 7. Questions solicited from receiving nurse 8. Patient disposition at the time of handoff: No value filed. 830 An Stop 08 Out of Room Meds Name Total lidocaine (cardiac) syringe 2 % 60 mg propofol 150 mg sodium chloride 0.9% infusion 40 mL * Agents Name O2 * Blood No blood administrations on file. Lines, Drains, and Airways Type Details Placement Removal Peripheral IV Placement Date: 01/23; Placement Time: 757; Catheter Size: 20 G; Orientation: Right; Location: Antecubital; Site Prep: Chlorhexidine; Technique: Anatomical landmarks; Inserted by: Rosario Patel RN; Insertion Attempts: 1; Patient Tolerance: Tolerated well; Removal Date: 06/07/24; Removal Time: 918; Removal Reason: Therapy completed 06/07/24757 by Rosario Patel RN 06/07/24918 by Rosario Patel RN documented in this encounter Social History Tobacco Use Types Packs/Day Years Used Date Smoking Tobacco: Former Smokeless Tobacco: Never Personal Safety Answer Date Recorded Have you ever been in or are you currently in a harmful physical or emotional relationship or is someone making you feel afraid or unsafe? Denies 06/07/2024 Comments Unknown Sex and Gender Information Value Date Recorded Sex Assigned at Not on file 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 [employer] Gender Identity Not on file Sexual Orientation Not on file documented as of this encounter OR Notes * Anesthesia Postprocedure Evaluation - Dillon Alva MD - 06/07/2024 5:20 PM CST Patient: Elizabeth Oates Procedure Summary Date: 06/07/24 Room / Location: [facility] ROOM 1 / [facility] Anesthesia Start: 811 Anesthesia Stop: 830 Procedures: ESOPHAGOGASTRODUODENOSCOPY BIOPSY BOUGIE DILATION Diagnosis: Positive H. pylori test Dyspepsia (Positive H. pylori test [A04.8]) (Dyspepsia [R10.13]) Providers: Elisa Abbott MD Responsible Provider: Dillon Alva MD Anesthesia Type: general TIVA ASA Status: 3 Anesthesia Type: general TIVA Last vitals BP 133/90 Pulse 71 Temp 36.8 ??C (98.3 ??F) (Temporal) Resp 18 SpO2 98% Anesthesia Post Evaluation Patient location during evaluation: PACU Patient participation: complete - patient participated Level of consciousness: fully awake Pain score: 0 Pain management: adequate Airway patency: patent Cardiovascular status: hemodynamically stable Respiratory status: room air Hydration status: euvolemic Pt is: normothermic Nausea/Vomiting status: none No notable events documented. DLE FRAME CARVER * Anesthesia Preprocedure Evaluation - Dillon Alva MD - 06/07/2024 8:00 AM CST Images from the original note were not included. Anesthesia Evaluation Elizabeth Oates is a 58 y.o. female ESOPHAGOGASTRODUODENOSCOPY Pre-Op Diagnosis Codes: * Positive H. pylori test [A04.8] * Dyspepsia [R10.13] HISTORY Past Medical History Neurological + Psychiatric history - depression Cardiovascular Cardiac system: negative Respiratory Pertinent negatives: non-smoker Respiratory system: negative Hepatic / Heme Hepatic/Heme system: negative Gastrointestinal + GERD - on daily therapy. Asymptomatic. Renal / Renal/ system: negative Musculoskeletal/Pain Musculoskeletal/Pain system: negative Endocrine / Other + Thyroid disease - hypothyroidism + Obesity (BMI >30)- morbid obesity (BMI>40). Functional Capacity Functional capacity: 4-6 METs Review of Systems + dysphagia + diarrhea Patient Active Problem List Diagnosis Date Noted Positive H. pylori test 05/18/2024 Dyspepsia 05/18/2024 Functional diarrhea 05/18/2024 Family history of colon cancer 01/07/2023 Multinodular goiter (nontoxic) 11/30/2018 Esophageal dysphagia 11/30/2018 Gastroesophageal reflux disease without esophagitis 11/30/2018 Past Medical History: Diagnosis Date Chronic diarrhea Depression Hypothyroidism Past Surgical History: Procedure Laterality Date COLONOSCOPY 01/18/2018 COLONOSCOPY 02/03/2023 DILATION AND CURETTAGE OF UTERUS THYROID LOBECTOMY UPPER GASTROINTESTINAL ENDOSCOPY OB History No obstetric history on file. No Known Allergies Taking? Last Dose Start Date End Date Provider busPIRone (BUSPAR) 5 mg tablet -- -- -- ProviderAbdoulaye MD cetirizine (ZyrTEC) 10 mg tablet -- -- -- Abdoulaye Okeefe MD dicyclomine (BENTYL) 10 mg capsule -- 05/18/24 05/18/25 Elisa Abbott MD Take 1 capsule (10 mg total) by mouth 3 (three) times a day before meals famotidine (PEPCID) 20 mg tablet -- 04/20/24 -- Abdoulaye Okeefe MD gabapentin (NEURONTIN) 100 mg capsule () -- 07/14/23 07/28/23 Jorge Hassan NP Take 2 capsules (200 mg total) by mouth 2 (two) times a day for 14 days ibuprofen (ADVIL,MOTRIN) 600 mg tablet -- 11/08/20 -- Dhara Garcia PA Take 1 tablet (600 mg total) by mouth every 6 (six) hours as needed for pain levothyroxine (SYNTHROID, LEVOTHROID) 50 mcg tablet -- -- -- Abdoulaye Okeefe MD ondansetron (ZOFRAN) 4 mg tablet -- 02/18/20 -- Maryanne Frank MD Take 1 tablet (4 mg total) by mouth every 4 (four) hours as needed for nausea or vomiting Current Facility-Administered Medications: ondansetron (ZOFRAN) injection 4 mg, 4 mg, intravenous, Q30 Min PRN sodium chloride 0.9% flush 0.5-20 mL, 0.5-20 mL, intra-catheter, PRN sodium chloride 0.9% infusion, 30 mL/hr, intravenous, Continuous sodium chloride 0.9% infusion, 125 mL/hr, intravenous, Continuous Social History Tobacco Use Smoking Status Former Smokeless Tobacco Never Alcohol Use: Not on file Substance and Sexual Activity Drug Use Not on file Family History Problem Relation Age of Onset Colon cancer Father Vitals: 06/07/24 0725 BP: 133/94 Pulse: 71 Resp: 18 Temp: 36.9 ??C (98.4 ??F) SpO2: 99% PT: No results found for requested labs within last 30 days. INR: No results found for requested labs within last 30 days. APTT: No results found for requested labs within last 30 days. Hgb A1C: No results found for requested labs within last 30 days. CBC RBC: No results found for requested labs within last 30 days. RDW: No results found for requested labs within last 30 days. MCHC: No results found for requested labs within last 30 days. MCH: No results found for requested labs within last 30 days. MCV: No results found for requested labs within last 30 days. Hct: No results found for requested labs within last 30 days. Hgb: No results found for requested labs within last 30 days. WBC: No results found for requested labs within last 30 days. MPV: No results found for requested labs within last 30 days. Platelets: No results found for requested labs within last 30 days. RDW CV: No results found for requested labs within last 30 days. RDW Sd: No results found for requested labs within last 30 days. BMP Glucose: No results found for requested labs within last 30 days. Calcium: No results found for requested labs within last 30 days. Sodium: No results found for requested labs within last 30 days. Potassium: No results found for requested labs within last 30 days. CO2: No results found for requested labs within last 30 days. Chloride: No results found for requested labs within last 30 days. BUN: No results found for requested labs within last 30 days. Creatinine: No results found for requested labs within last 30 days. STOP-Bang Total Score: 3 DOS Physical Exam Medical history, medications, and allergies reviewed. Attestation: I endorse the findings of the anesthesia pre-evaluation assessment dated: 06/07/2024. Airway Exam: Mallampati: II Cervical ROM: FROM TM distance: normal Cardiovascular Exam: Rate: regular Rhythm: regular Pulmonary Exam: LCTA, bilat EENT Exam: trachea midline Dental Exam: Missing Skin Exam: Skin is warm. Current state: Patient's current state is cooperative and interactive. Anesthesia Plan ASA 3 Planned anesthesia: General TIVA Induction: Induction: intravenous. Postoperative Plan: No plan for postoperative opioid use. No postoperative mechanical ventilation intended. Patient's planned disposition post procedure is Outpatient. Informed Consent: Discussed plan with attending. Anesthesia plan and risks discussed with patient. Consent and Attending signature: I and/or my designee have discussed the anesthesia plan, benefits, possible alternatives, parental presence at time of induction (if indicated), and clinically relevant risks that may include dental injury, unintentional awareness, and/or other complications. The patient and/or parent/legal guardian understand, and agree to proceed. All questions answered. DLE FRAME CARVER DLE FRAME CARVER documented in this encounter Plan of Treatment Not on file documented as of this encounter Visit Diagnoses Not on filedocumented in this encounter Administered Medications Inactive Administered Medications - up to 3 most recent administrations Medication Order MAR Action Action Date Dose Rate Site lidocaine (PF) (XYLOCAINE) 20 mg/mL (2 %) preservative free injection intravenous, As needed, Starting on Wed06/07/24 at 0817, Anesthesia Intra-op Given 06/07/2024 8:17 AM [employer] 60 mg propofoL (DIPRIVAN) 10 mg/mL IV intravenous, As needed, Starting on Wed06/07/24 at 0817, Anesthesia Intra-op Given 06/07/2024 8:23 AM [employer] 30 mg Given 06/07/2024 8:21 AM [employer] 30 mg Given 06/07/2024 8:19 AM [employer] 30 mg sodium chloride 0.9% infusion 30 mL/hr, intravenous, Continuous, Starting on Wed06/07/24 at 0800, Pre-Procedure (GI) Restarted 06/07/2024 8:29 AM [employer] New Bag 06/07/2024 8:12 AM [employer] 30 mL/hr documented in this encounter Care Teams Local Area Network Systems Adminstrator Relationship Specialty Start Date End Date Tomasz Martinez PA [address] [place] [address] PCP - General 12/15/17 documented as of this encounter
--- OUTSIDE RECORDS SUMMARY | 2024-07-21 10:49 | XMS_ITS | Encounter Summary ---
Author Organization [facility] Healthcare Address [address] [place] [address] Care Team Providers Care Oracle Soa Architect Name Role Phone Tomasz Martinez Primary Care Provider [phone] Reason for Visit * Auth/Cert (Routine) Specialty Diagnoses / Procedures Referred By Contlainey t Referred To Contact Diagnoses Positive H. pylori test Dyspepsia Positive H. pylori test [A04.8] Dyspepsia [R10.13] Procedures [place] ESOPHAGOGASTRODUODENOSCOPY TRANSORAL DIAGNOSTIC ESOPHAGOGASTRODUODENOSCOPY Referral ID Status Reason Start Date Expiration Date Visits Re quested Visits Authorized [id number] 1 1 Encounter Details Date Type Department Care Team (Latest Contact Info) Description 06/07/2024 7:10 AM SAAS ARCHITECT - 06/07/2024 9:23 AM SAAS ARCHITECT Hospital Encounter [facility] [address] [place] [address] Elisa Abbott MD [address] [place] [id number] Positive H. pylori test; Dyspepsia Discharge Disposition: Discharge to home or self care Social History Tobacco Use Types Packs/Day Years [...] on file 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 SAAS ARCHITECT Gender Identity Not on file Sexual Orientation Not on file documented as of this encounter Last Filed Vital Signs Vital Sign Reading Time Taken Comments Blood Pressure 133/90 06/07/2024 9:04 AM SAAS ARCHITECT Pulse 71 06/07/2024 9:04 AM SAAS ARCHITECT Temperature 36.8 ??C (98.3 ??F) 06/07/2024 9:04 AM CS T Respiratory Rate 18 06/07/2024 9:04 AM SAAS ARCHITECT Oxygen Saturation 98% 06/07/2024 9:04 AM SAAS ARCHITECT Inhaled Oxygen Concentration - - Weight 109.3 kg (241 lb) 06/07/2024 7:25 AM SAAS ARCHITECT Height 154.9 cm (5' 1 ) 06/07/2024 7:25 AM SAAS ARCHITECT Body Mass Index 45.54 06/07/2024 7:25 AM SAAS ARCHITECT documented in this encounter Medications at Time of Discharge busPIRone (BUSPAR) 5 mg tabletIndication s:Generalized Anxiety Disorder Take 1 tablet (5 mg total) by mouth daily cetirizine (ZyrTEC) 10 mg tablet Take 1 tablet (10 mg total) by mouth daily dicyclomine (BENTYL) 10 mg capsule Take 1 capsule (10 mg total) by mouth 3 (three) times a day before meals 90 capsule 3 05/18/2024 5 famotidine (PEPCID) 20 mg tablet Take 2 tablets (40 mg total) by mouth daily 60 tablet 11 06/07/2024 5 ibuprofen (ADVIL,MOTRIN) 600 mg tabletIndication s:Anti-inflammat ory,Pain Take 1 tablet (600 mg total) by mouth every 6 (six) hours as needed for pain 30 tablet 11/08/2020 levothyroxine (SYNTHROID, LEVOTHROID) 50 mcg tablet 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 ondansetron (ZOFRAN) 4 mg tablet Take 1 tablet (4 mg total) by mouth every 4 (four) hours as needed for nausea or vomiting 15 tablet 02/18/2020 documented as of this encounter Ordered Prescriptions Prescription Sig Dispense Quantity Refills Last Filled Start Date End Date famotidine (PEPCID) 20 mg tablet Take 2 tablets (40 mg total) by mouth daily 60 tablet 11 06/07/2024 5 documented in this encounter Discharge Disposition Disposition Code Departure Means Destination Comment s Discharge to home or self care documented in this encounter H&P Notes * Elisa Abbott MD - 06/07/2024 8:31 AM CST History and Physical Date of visit: 06/07/2024 Subjective: Patient is a 58 y.o. female presented for evaluation for dysphagia and history of gastritis. Past Medical History: Diagnosis Date Chronic diarrhea Depression Hypothyroidism Past Surgical History: Procedure Laterality Date COLONOSCOPY 01/18/2018 COLONOSCOPY 02/03/2023 DILATION AND CURETTAGE OF UTERUS THYROID LOBECTOMY UPPER GASTROINTESTINAL ENDOSCOPY Medications Prior to Admission Medication Sig Dispense Refill Last Dose/Taking busPIRone (BUSPAR) 5 mg tablet Take 1 tablet (5 mg total) by mouth daily cetirizine (ZyrTEC) 10 mg tablet Take 1 tablet (10 mg total) by mouth daily dicyclomine (BENTYL) 10 mg capsule Take 1 capsule (10 mg total) by mouth 3 (three) times a day before meals 90 capsule 3 famotidine (PEPCID) 20 mg tablet Take 1 tablet every day by oral route as needed for 30 days. 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 Eyes: no jaundice. Lungs: CTA anteriorly. ENT: no mouth ulcers. Abdomen: soft, no distention, no tenderness, bowel sounds positive. Extremities: no edema. Skin: no rash. GI IMPRESSION: Dysphagia GI PLAN/RECOMMENDATIONS: EGD Elisa Abbott MD ARCHITECT documented in this encounter Procedure Notes * Elisa Abbott MD - 06/07/2024 7:21 AM CSTAssociated Order(s): EGD [facility] Patient Name: Elizabeth Oates Procedure Date: 06/07/2024 7:21 AM Date of : 1965 Admit Type: Outpatient Age: 58 Gender: Female Attending MD: Elisa Abbott M.D. Room: [facility] ENDOSCOPY ROOM 1 Note Status: Finalized Patient Profile: This is a 58 year old female. Patient complained of dysphagia mainly further in the upper chest and throat area. He has some dyspepsia symptoms. EGD for evaluation Procedure: Upper GI endoscopy Indications: Dysphagia Referring MD: BEVERLEY FeldmanC Providers: Elisa Abbott M.D. Impression: - Erythematous mucosa in the prepyloric region of the stomach likely nonspecific. Biopsied. - Normal esophagus. Biopsied. Dilated with 54 Fr. carreon dilator. Recommendation: - Continue present medications. - Await pathology results. - Use famotidine 40 mg daily. Medicines: Monitored Anesthesia Care Complications: No immediate complications. Estimated Blood Loss: Estimated blood loss: none. Procedure: Pre-Anesthesia Assessment: - Prior to the procedure, a History and Physical was performed, and patient medications and allergies were reviewed. The patient's tolerance of previous anesthesia was also reviewed. The risks and benefits of the procedure and the sedation options and risks were discussed with the patient. All questions were answered, and informed consent was obtained. Prior Anticoagulants: The patient has taken no anticoagulant or antiplatelet agents. ASA Grade Assessment: Per anesthesia note and evaluation. After reviewing the risks and benefits, the patient was deemed in satisfactory condition to undergo the procedure. The benefits, risks, and alternatives to the procedure and sedation were discussed and informed consent was obtained. The scope was passed under direct vision. The Endoscope [id number] was introduced through the mouth, and advanced to the second part of duodenum. The upper GI endoscopy was accomplished without difficulty. The patient tolerated the procedure well. Findings: The examined duodenum was normal. Mild erythema noted in the bulb which could be nonspecific. Otherwise mucosal pattern was normal Localized mildly erythematous mucosa without bleeding was found in the prepyloric region of the stomach. Biopsies were taken with a cold forceps for Helicobacter pylori testing using CLOtest. Biopsies were taken with a cold forceps for histology. The gastroesophageal junction was noted with mild irregularity be sequence acid reflux disease. No erosions and no ulceration and no inflammatory changes noted. The gastric body and fundus appeared normal. Retroflexion stomach in the gastric cardia was unremarkable. The examined esophagus body was normal. Possible mild element of esophageal dysmotility or spasm. Biopsies were taken with a cold forceps for histology. The scope was withdrawn. Dilation was performed with a Carreon dilator with no resistance at 54 Fr. Electronically signed by Elisa Abbott M.D. Elisa Abbott M.D. 06/07/2024 8:38:30 AM Number of Addenda: 0 Note Initiated On: 06/07/2024 7:21 AM Procedure Code(s): --- Professional --- 42627, Esophagogastroduodenoscopy, flexible, transoral; with biopsy, single or multiple 78638, Dilation of esophagus, by unguided sound or bougie, single or multiple passes Diagnosis Code(s): --- Professional --- K31.89, Other diseases of stomach and duodenum R13.10, Dysphagia, unspecified CPT copyright 2020 [employer]. All rights reserved. The codes documented in this report are preliminary and upon city routeman review may be revised to meet current compliance requirements. Recognized by the [employer] for promoting quality in endoscopy ARCHITECT documented in this encounter Miscellaneous Notes * Perioperative Nursing Note - Rosario Patel RN - 06/07/2024 9:[address] Abbott discharged patient to home with electronic prescription for Famotidine and GERD diet.Patient to return as needed. ARCHITECT documented in this encounter Plan of Treatment Scheduled Orders Name Type Priority Associated Diagnoses Order Schedule Surgical pathology Pathology and Cytology Timed Positive H. pylori test Dyspepsia Release Upon Ordering for 1 Occurrences starting 06/07/2024 documented as of this encounter Procedures Procedure Name Priority Date/Time Associated Diagnosis Comments H. PYLORI UREASE SCREEN (SAMPSON TEST) STAT 06/07/2024 8:28 AM SAAS ARCHITECT BOUGIE DILATION 06/07/2024 8:02 AM SAAS ARCHITECT Positive H. pylori test Dyspepsia ESOPHAGOGASTRODUODENOSCOPY BIOPSY 06/07/2024 8:02 AM SAAS ARCHITECT Positive H. pylori test Dyspepsia EGD 06/07/2024 7:21 AM SAAS ARCHITECT documented in this encounter Results * H. pylori urease screen (SAMPSON test) Tissue (06/07/2024 8:28 AM SAAS ARCHITECT) H. pylori, rapid (SAMPSON) Negative Negative Tissue 06/07/2024 8:28 AM SAAS ARCHITECT 06/07/2024 12:00 PM SAAS ARCHITECT Elisa Abbott MD LAB MICROBIOLOGY - GENERAL ORDERABLES Final Result JENNIFER RODRIGUEZ [place]) [address] [facility] Department [place] [address] * EGD (06/07/2024 7:21 AM SAAS ARCHITECT) Anatomical Region Laterality Modality Other Narrative Procedure Note Elisa Abbott MD - 06/07/2024 7:21 AM CST Center Patient Name: Elizabeth Oates Procedure Date: 06/07/2024 7:21 AM Date of : 1965 Admit Type: Outpatient Age: 58 Gender: Female Attending MD: Elisa Abbott M.D. Room: [facility] ENDOSCOPY ROOM 1 Note Status: Finalized Patient Profile: This is a 58 year old female. Patient complained of dysphagia mainly further in the upper chest andthroat area. He has some dyspepsia symptoms. EGD for evaluation Procedure: Upper GI endoscopy Indications: Dysphagia Referring MD: Tomasz Martinez PA-C Providers: Elisa Abbott M.D. Impression: - Erythematous mucosa in the prepyloric region ofthe stomach likely nonspecific. Biopsied. - Normal esophagus. Biopsied. Dilated with 54 Fr. carreon dilator. Recommendation: - Continue present medications. - Await pathology results. - Use famotidine 40 mg daily. Medicines: Monitored Anesthesia Care Complications: No immediate complications. Estimated Blood Loss: Estimated blood loss: none. Procedure: Pre-Anesthesia Assessment: - Prior to the procedure, a History and Physicalwas performed, and patient medications and allergieswere reviewed. The patient's tolerance of previous anesthesia was also reviewed. The risks andbenefits of the procedure and the sedation options and risks were discussed with the patient. All questions were answered, and informed consent was obtained. Prior Anticoagulants: The patient has taken noanticoagulant or antiplatelet agents. ASA Grade Assessment: Per anesthesia note and evaluation. After reviewing the risks and benefits, the patient was deemed in satisfactory condition to undergo the procedure. The benefits, risks, and alternatives to theprocedure and sedation were discussed and informed consentwas obtained. The scope was passed under direct vision. The Endoscope GIF-H190 [id number] was introduced through the mouth, and advanced to the second partof duodenum. The upper GI endoscopy was accomplished without difficulty. The patient tolerated the procedure well. Findings: The examined duodenum was normal. Mild erythema noted in the bulbwhich could be nonspecific. Otherwise mucosal pattern was normal Localized mildly erythematous mucosa without bleeding was found inthe prepyloric region of the stomach. Biopsies were taken with a cold forceps for Helicobacter pylori testing using CLOtest. Biopsies were taken with a cold forceps for histology. The gastroesophageal junction was noted with mild irregularity be sequence acid reflux disease. No erosions and no ulceration and no inflammatory changes noted. The gastric body and fundus appearednormal. Retroflexion stomach in the gastric cardia was unremarkable. The examined esophagus body was normal. Possible mild element of esophageal dysmotility or spasm. Biopsies were taken with a coldforceps for histology. The scope was withdrawn. Dilation was performed with a Carreon dilator with no resistance at 54 Fr. Electronically signed by Ahmad Karadaghy, M.D. Elisa Abbott M.D. 06/07/2024 8:38:30 AM Number of Addenda: 0 Note Initiated On: 06/07/2024 7:21 AM Procedure Code(s): --- Professional --- 22909, Esophagogastroduodenoscopy, flexible, transoral; with biopsy, single or multiple 81577, Dilation of esophagus, by unguided sound or bougie, single or multiple passes Diagnosis Code(s): --- Professional --- K31.89, Other diseases of stomach and duodenum R13.10, Dysphagia, unspecified CPT copyright 2020 [employer]. All rights reserved. The codes documented in this report are preliminary and upon city routeman reviewmay be revised to meet current compliance requirements. Recognized by the [employer] for promoting quality in endoscopy Elisa Abbott MD ENDOSCOPY PROCEDURES Final Result documented in this encounter Visit Diagnoses Diagnosis Positive H. pylori test Dyspepsia Dyspepsia and other specified disorders of function of stomach documented in this encounter Admitting Diagnoses Diagnosis Positive H. pylori test Dyspepsia Dyspepsia and other specified disorders of function of stomach documented in this encounter Administered Medications Inactive Administered Medications - up to 3 most recent administrations Medication Order MAR Action Action Date Dose Rate Site ondansetron (ZOFRAN) injection 4 mg 4 mg, intravenous, Administer over 2 Minutes, Every 30 min PRN, nausea, vomiting, Starting on Wed06/07/24 at 0718, For 2 doses, Recovery (GI), Indications: Nausea and VomitingIndications:Nausea and Vomiting sodium chloride 0.9% flush 0.5-20 mL 0.5-20 mL, intra-catheter, As needed, line care, Starting on Wed06/07/24 at 0719, Pre-Procedure (GI), Flush volume based on line type and size. Flush before and after each use. sodium chloride 0.9% infusion 30 mL/hr, intravenous, Continuous, Starting on Wed06/07/24 at 0800, Pre-Procedure (GI) Restarted 06/07/2024 8:29 AM SAAS ARCHITECT New Bag 06/07/2024 8:12 AM SAAS ARCHITECT 30 mL/hr sodium chloride 0.9% infusion 125 mL/hr, intravenous, Continuous, Starting on Wed06/07/24 at 0800, Recovery (GI) documented in this encounter Discontinued Medications Medication Sig Discontinue Reason Start Date End Da te famotidine (PEPCID) 20 mg tablet Take 1 tablet every day by oral route as needed for 30 days. 04/20/2024 06/07/2024 documented as of this encounter Active and Recently Administered Medications Times are shown in SAAS ARCHITECT. Continuous Medication Order 06/05/2024 06/06/2024 06/07/2024 sodium chloride 0.9% infusion 30 mL/hr, intravenous, Continuous, Starting on Wed06/07/24 at 0800, Pre-Procedure (GI) 0812 (New Bag - Prov ider: Dillon Alva MD)0828 (Paused - Provider: Dillon Alva MD - Comment: Switch to gravity)0829 (Restarted - Provider: Dillon Alva MD)1324 (Due: Stopped) sodium chloride 0.9% infusion 125 mL/hr, intravenous, Continuous, Starting on Wed06/07/24 at 0800, Recovery (GI) 0800 (Due) PRN Medication Order 06/05/2024 06/06/2024 06/07/2024 ondansetron (ZOFRAN) injection 4 mg 4 mg, intravenous, Administer over 2 Minutes, Every 30 min PRN, nausea, vomiting, Starting on Wed06/07/24 at 0718, For 2 doses, Recovery (GI), Indications: Nausea and Vomiting sodium chloride 0.9% flush 0.5-20 mL 0.5-20 mL, intra-catheter, As needed, line care, Starting on Wed06/07/24 at 0719, Pre-Procedure (GI), Flush volume based on line type and size. Flush before and after each use. documented in this encounter Orders Medications Ordered That Travis ht Not Have Been Administered Count Last Ordered Date First Ordered Date ondansetron (ZOFRAN) injection 4 mg 1 06/07 sodium chloride 0.9% flush 0.5-20 mL 1 01/2024 sodium chloride 0.9% infusion 2 06/07/2024 Discharge Count Last Ordered Date First Orde red Date DISCHARGE PATIENT 1 06/07/2024 documented in this encounter Care Teams Oracle Soa Architect Relationship Specialty Start Date End Date Tomasz Martinez PA [address] [place] [address] PCP - General 12/15/17 documented as of this encounter
--- OUTSIDE RECORDS SUMMARY | 2024-07-21 10:49 | XMS_ITS | Encounter Summary ---
Author Organization [facility] Address [address] [place] [address] Care Team Providers Care Shop Assistant Name Role Phone Tomasz Martinez Primary Care Provider Reason for Visit * Reason Onset Date Comments Schedule Colonoscopy 01/07/2023 Encounter Details Date Type Department Care Team (Late st Contact Info) Description 01/07/2023 Telephone [facility] Medical [facility] Gastroenterology at [address] [place] [address] Orly Husain Schedule Colonoscopy Social History Tobacco Use Types Packs/Day Years Used Date Smoking Tobacco: Former Smokeless Tobacco: Never Comments Unknown Sex and Gender Information Value Date Recorded Sex Assigned at Not on file 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 Abbott on 02/03/23. Prep instructions mailed to patient. Last colonoscopy: 01/18/2018 Family history colon cancer (if yes, relationship to pt): Yes - Father Personal history colon polyps or colon cancer: No Pt on blood thinner (if yes, list medication and reason for taking): No Has pt had recent stent placement within the last year: No Pt have pacemaker/defibrillator: No Pt diabetic (if yes, insulin or oral meds): No Pt have kidney disease or on dialysis: No Pt on iron: No Hx of Constipation: No Mechanical Heart valve: No COVID-19 test verbally given to pt: Not Needed Instructed pt to call with any medical changes and/or medications/insurance. documented in this encounter Plan of Treatment Not on file documented as of this encounter Visit Diagnoses Diagnosis Family history of colon cancer- Primary Family history of malignant neoplasm of gastrointestinal tract documented in this encounter Orders Case Request Count Last Ordered Date First Orde red Date CASE REQUEST GI 1 01/07/2023 documented in this encounter Care Teams Shop Assistant Relationship Specialty Start Date End Date Tomasz Martinez PA [address] [place] [address] PCP - General 12/15/17 documented as of this encounter
--- OUTSIDE RECORDS SUMMARY | 2024-07-21 10:49 | XMS_ITS | Encounter Summary ---
Author Organization [facility] Address [address] [place] [id number] Care Team Providers Care Lcsw Name Role Phone Tomasz Martinez Primary Care Provider [phone] Reason for Visit * Reason Comments Toe Injury (L) Toe Castorena, Red, Feels Warm to Touch Encounter Details Date Type Department Care Team (Late st Contact Info) Description 06/05/2020 3:00 PM WAD BLANKING PRESS ADJUSTER Office Visit [facility] [address] [place] [id number] Shahnaz Griffith, JEFF [address] [facility] [address] Infection of nail bed of toe of left foot (Primary Dx) Social History Tobacco Use Types Packs/Day Years Used Date Smoking Tobacco: Former Smokeless Tobacco: Never Comments Unknown Sex and Gender Information Value Date Recorded Sex Assigned at Not on file 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 WAD BLANKING PRESS ADJUSTER Gender Identity Not on file Sexual Orientation Not on file documented as of this encounter Last Filed Vital Signs Vital Sign Reading Time Taken Comments Blood Pressure 128/98 06/05/2020 3:11 PM WAD BLANKING PRESS ADJUSTER Pulse 85 06/05/2020 3:11 PM WAD BLANKING PRESS ADJUSTER Temperature 36.7 ??C (98 ??F) 06/05/2020 3:11 PM WAD BLANKING PRESS ADJUSTER Respiratory Rate 16 06/05/2020 3:11 PM WAD BLANKING PRESS ADJUSTER Oxygen Saturation 99% 06/05/2020 3:11 PM WAD BLANKING PRESS ADJUSTER Inhaled Oxygen Concentration - - Weight 110.3 kg (243 lb 3.2 oz) 06/05/2020 3:11 PM WAD BLANKING PRESS ADJUSTER Height 156 cm (5' 1.42 ) 06/05/2020 3:11 PM WAD BLANKING PRESS ADJUSTER Body Mass Index 45.33 06/05/2020 3:11 PM WAD BLANKING PRESS ADJUSTER documented in this encounter Patient Instructions * Patient Instructions* Shahnaz Griffith NP - 06/05/2020 3:00 PM WAD BLANKING PRESS ADJUSTER Infection prevention is a primary consideration for wounds. To assist in prevention, do the following: ??? Wash wound with wound cleanser or plain soap and water twice daily or more frequently if it gets dirty. ??? After proper washing, apply triple antibiotic ointment and cover with a clean bandage. Change bandage twice daily or anytime it gets wet or soiled. ??? Observe for signs/symptoms of infection including: o Increased redness, swelling, or pain to site. o Drainage at site. o Redness and inflammation around the wound. o Red streaks coming from wound. o Fever greater than 101. If any of these signs/symptoms present, call your PCP immediately or go to the Emergency Room. Soak foot in warm water and epsom salt at least 3 times daily. Complete full course of antibiotic. Follow up with PCP in 2 weeks for re-check. Ibuprofen 600mg every 8 hours with food. BLANKING PRESS ADJUSTER documented in this encounter Ordered Prescriptions Prescription Sig Dispense Quantity Refills Last Filled Start Date End Date cephalexin (KEFLEX) 500 mg capsuleIndications :Infection of nail bed of toe of left foot Take 1 capsule (500 mg total) by mouth 2 (two) times a day for 10 days 20 capsule 06/05/2020 0 documented in this encounter Progress Notes * Shahnaz Griffith NP - 06/05/2020 3:00 PM CST Images from the original note were not included. Subjective/Objective Patient ID: Elizabeth Oates is a 54 y.o. female. Chief Complaint Toe Injury ((L) Toe Cast[place], Red, Feels Warm to Touch) Toe Pain There was no injury mechanism. The pain is present in the left toes. The quality of the pain is described as aching and burning. The pain is moderate. The pain has been constant since onset. Associated symptoms include an inability to bear weight. Pertinent negatives include no loss of motion, lossof sensation, muscle weakness, numbness or tingling. She reports no foreign bodies present. The symp toms are aggravated by palpation and weight bearing. Treatments tried: prid salve. The treatment provided no relief. Review of Systems Constitutional: Negative for chills, fatigue and fever. HENT: Negative for ear pain. Respiratory: Negative for cough and shortness of breath. Cardiovascular: Negative for chest pain. Gastrointestinal: Negative for diarrhea, nausea and vomiting. Musculoskeletal: Negative for arthralgias and myalgias. Skin: Positive for wound. Neurological: Negative for dizziness, tingling, numbness and headaches. Psychiatric/Behavioral: Negative for agitation. Physical Exam Vitals signs reviewed. Constitutional: General: She is not in acute distress. Appearance: She is well-developed. She is not ill-appearing. Cardiovascular: Rate and Rhythm: Normal rate and regular rhythm. Heart sounds: Normal heart sounds. Pulmonary: Effort: Pulmonary effort is normal. Breath sounds: Normal breath sounds. Musculoskeletal: Normal range of motion. Lymphadenopathy: Cervical: No cervical adenopathy. Skin: General: Skin is warm and dry. Comments: Swelling and erythema of medial nailbed of left great toe. No red streaking. No drainage with palpation. Neurological: Mental Status: She is alert and oriented to person, place, and time. Psychiatric: Speech: Speech normal. Vitals: 06/05/20 1511 BP: 128/98 BP Location: Right arm Patient Position: Sitting Pulse: 85 Resp: 16 Temp: 36.7 ??C (98 ??F) TempSrc: Temporal SpO2: 99% Weight: 110.3 kg (243 lb 3.2 oz) Height: 156 cm (5' 1.42 ) Assessment/Plan Diagnoses and all orders for this visit: Infection of nail bed of toe of left foot (Primary) - cephalexin (KEFLEX) 500 mg capsule; Take 1 capsule (500 mg total) by mouth 2 (two) times a day for 10 days Infection prevention is a primary consideration for wounds. To assist in prevention, do the following: ??? Wash wound with wound cleanser or plain soap and water twice daily or more frequently if it gets dirty. ??? After proper washing, apply triple antibiotic ointment and cover with a clean bandage. Change bandage twice daily or anytime it gets wet or soiled. ??? Observe for signs/symptoms of infection including: o Increased redness, swelling, or pain to site. o Drainage at site. o Redness and inflammation around the wound. o Red streaks coming from wound. o Fever greater than 101. If any of these signs/symptoms present, call your PCP immediately or go to the Emergency Room. Soak foot in warm water and epsom salt at least 3 times daily. Complete full course of antibiotic. Follow up with PCP in 2 weeks for re-check. Ibuprofen 600mg every 8 hours with food. Disposition- Discussed medications dosages, usage & potential side effects. Risks and interactions reviewed with patient. Indications for testing reviewed. Patient has been instructed to follow up w PCP or go to ER for any signs or symptoms that are of concern or worsening. Patient verbalizes understanding. The patient was given the opportunity to ask all questions and to have all questions answered. Patient is in agreement with the plan of care Shahnaz Griffith NP BLANKING PRESS ADJUSTER documented in this encounter Plan of Treatment Not on file documented as of this encounter Visit Diagnoses Diagnosis Infection of nail bed of toe of left foot- Primary documented in this encounter Care Teams Lcsw Relationship Specialty Start Date End Date Tomasz Martinez PA [address] [place] [address] PCP - General 12/15/17 documented as of this encounter
--- OUTSIDE RECORDS SUMMARY | 2024-07-21 10:49 | XMS_ITS | Encounter Summary ---
Author Organization [facility] Address [address] [place] [address] Care Team Providers Care Plate Gauger Name Role Phone Tomasz Martinez Primary Care Provider [phone] Reason for Visit * Reason Comments Follow-up Patient here for fol low up diarrhea, has been better but when she does it is like water, had Hpylori Encounter Details Date Type Department Care Team (Latest Contact Info) Description 05/18/2024 9:30 AM CDT Office Visit [facility] G[facility] at [address] [place] [address] Elisa Abbott MD [address] [place] [address] [address] [place] [address] Dyspepsia (Primary Dx); Esophageal dysphagia; Functional diarrhea Social History Tobacco Use Types Packs/Day Years Used Date Smoking Tobacco: Former Smokeless Tobacco: Never Tobacco Cessation:Counseling Given: Not Answered Personal Safety Answer Date Recorded Have you ever been in or are you currently in a harmful physical or emotional relationship or is someone making you feel afraid or unsafe? 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 END SOFTWARE ENGINEER Gender Identity Not on file Sexual Orientation Not on file documented as of this encounter Last Filed Vital Signs Vital Sign Reading Time Taken Comments Blood Pressure 133/90 05/18/2024 9:20 AM CDT Pulse 70 05/18/2024 9:20 AM CDT Temperature - - Respiratory Rate - - Oxygen Saturation 94% 05/18/2024 9:20 AM CDT Inhaled Oxygen Concentration - - Weight 109.3 kg (241 lb) 05/18/2024 9:20 AM CDT Height 154.9 cm (5' 1 ) 05/18/2024 9:20 AM CDT Body Mass Index 45.54 05/18/2024 9:20 AM CDT documented in this encounter Ordered Prescriptions Prescription Sig Dispense Quantity Refills Last Filled Start Date End Date dicyclomine (BENTYL) 10 mg capsule Take 1 capsule (10 mg total) by mouth 3 (three) times a day before meals 90 capsule 3 05/18/2024 documented in this encounter Progress Notes * Elisa Abbott MD - 05/18/2024 9:30 AM CDT FOLLOW-UP VISIT Chief Complaint Patient presents with Follow-up Patient here for follow up diarrhea, has been better but when she does it is like water, had Hpylori SUBJECTIVE: HPI: Ms. Oates is following up for Follow-up (Patient here for follow up diarrhea, has been better but when she does it is like water, had Hpylori) Patient has long history of loose bowel movements and diarrhea especially after meals. Couple yearsago we started dicyclomine which she took for few months and then discontinued. The patient describes that every time she eats she has to have bowel movements which is mainly loose stool. No blood inthe stool noted. No history of weight loss. No nausea. No vomiting. Patient also has bloating and gas feeling almost on daily basis. Recently she was treated for H pylori with antibiotics after hydrogen breath test as outpatient in another facility. No previous endoscopy she has previous colonoscopy with random colon biopsy which was within normal. ROS: GENERAL: no fever, appetite is good. RESPIRATORY: no shortness of breath, no cough. SKIN: no itching, no rash. EYES: no redness, no itching, no visual changes. Past Medical History: Diagnosis Date Chronic diarrhea Depression Hypothyroidism Past Surgical History: Procedure Laterality Date COLONOSCOPY 01/18/2018 COLONOSCOPY 02/03/2023 DILATION AND CURETTAGE OF UTERUS THYROID LOBECTOMY Patient Active Problem List Diagnosis Multinodular goiter (nontoxic) Esophageal dysphagia Gastroesophageal reflux disease without esophagitis Family history of colon cancer Positive H. pylori test Dyspepsia Functional diarrhea Current Outpatient Medications on File Prior to Visit Medication Sig Dispense Refill busPIRone (BUSPAR) 5 mg tablet Take 1 tablet (5 mg total) by mouth daily cetirizine (ZyrTEC) 10 mg tablet Take 1 tablet (10 mg total) by mouth daily famotidine (PEPCID) 20 mg tablet Take 1 tablet every day by oral route as needed for 30 days. ibuprofen (ADVIL,MOTRIN) 600 mg tablet Take 1 tablet (600 mg total) by mouth every 6 (six) hours asneeded for pain 30 tablet 0 levothyroxine (SYNTHROID, LEVOTHROID) 50 mcg tablet Take 1 tablet (50 mcg total) by mouth embroidery assistant before breakfast ondansetron (ZOFRAN) 4 mg tablet Take 1 tablet (4 mg total) by mouth every 4 (four) hours as neededfor nausea or vomiting 15 tablet 0 gabapentin (NEURONTIN) 100 mg capsule Take 2 capsules (200 mg total) by mouth 2 (two) times a day for 14 days 56 capsule 0 No current facility-administered medications on file prior to visit. Family History Problem Relation Age of Onset Colon cancer Father Social History Tobacco Use Smoking status: Former Smokeless tobacco: Never Substance and Sexual Activity Drug use: None Sexual activity: None Alcohol Use: Not on file No Known Allergies OBJECTIVE: Vitals BP 133/90 (BP Location: Left arm, Patient Position: Sitting) Pulse 70 Ht 154.9 cm (5' 1 ) Wt 109.3 kg (241 lb) SpO2 94% BMI 45.54 kg/m?? Exam: Patient is alert and oriented to time and place and self. Patient appears comfortable. Eyes: no jaundice. Lungs: CTA anteriorly. ENT: no mouth ulcers. GI: abdomen is soft, no distention, no tenderness, bowel sounds positive. Musculoskeletal: no joint swelling, no edema. Skin: no rash. Psych: mood seems normal. No confusion. Labs and X Rays: - I reviewed all recent labs and X rays and endoscopy procedures. No visits with results within 3 Month(s) from this visit. Latest known visit with results is: Admission on 01/23/2023, Discharged on 01/23/2023 Component Date Value WBC 01/23/2023 5.5 Hgb 01/23/2023 11.4 (L) Hct 01/23/2023 36.1 Plt 01/23/2023 284 MPV 01/23/2023 9.7 RBC 01/23/2023 3.82 (L) MCV 01/23/2023 94.5 MCH 01/23/2023 29.8 MCHC 01/23/2023 31.6 (L) RDW CV 01/23/2023 13.2 RDW SD 01/23/2023 45.8 NRBC abs 01/23/2023 0.00 Sodium 01/23/2023 139 Potassium, pl 01/23/2023 3.3 Chloride 01/23/2023 103 CO2 01/23/2023 25 Anion gap 01/23/2023 11 BUN 01/23/2023 9 Creatinine 01/23/2023 0.64 Glucose 01/23/2023 94 Calcium 01/23/2023 8.8 Bilirubin, total 01/23/2023 0.4 Protein, pl 01/23/2023 7.3 Albumin 01/23/2023 4.1 Alk phos 01/23/2023 86 ALT 01/23/2023 17 AST 01/23/2023 20 Neutrophil abs 01/23/2023 3.4 Imm gran abs 01/23/2023 0.0 Lymphocyte abs 01/23/2023 1.3 Monocyte abs 01/23/2023 0.3 Eosinophil abs 01/23/2023 0.3 Basophil abs 01/23/2023 0.1 Neutrophil pct 01/23/2023 62.7 Imm gran pct 01/23/2023 0.2 Lymphocyte pct 01/23/2023 24.4 Monocyte pct 01/23/2023 5.8 Eosinophil pct 01/23/2023 6.0 Basophil pct 01/23/2023 0.9 eGFR 01/23/2023 103 GI Assessment & Plan: Diagnoses and all orders for this visit: Dyspepsia (Primary) Assessment & Plan: Will schedule upper endoscopy to re-evaluate for residual gastritis and/or peptic ulcer disease considering her symptoms of chronic dyspepsia and known history of H pylori gastritis. Follow up in 3 months Esophageal dysphagia Assessment & Plan: Intermittent symptoms with no worrisome signs. Will schedule EGD for evaluation. Functional diarrhea Assessment & Plan: Patient has long history of diarrhea especially after meals. Seems to worsened lately. Will restartdicyclomine 10 mg 3 times daily before meals. Advised to avoid salads. We will see the patient backin the office in couple months for re-evaluation. Other orders - dicyclomine (BENTYL) 10 mg capsule; Take 1 capsule (10 mg total) by mouth 3 (three) times a day before meals Voice recognition software [employer] was used dictate and transcribe this document. Windshield Technician variances may occur. Despite proofreading, typographical errors may occur. Elisa Abbott MD documented in this encounter Miscellaneous Notes * Assessment & Plan Note - Elisa Abbott MD - 05/18/2024 4:17 PM CDT Associated Problem(s): Functional diarrhea Patient has long history of diarrhea especially after meals. Seems to worsened lately. Will restartdicyclomine 10 mg 3 times daily before meals. Advised to avoid salads. We will see the patient backin the office in couple months for re-evaluation. * Assessment & Plan Note - Elisa Abbott MD - 05/18/2024 4:14 PM CDT Associated Problem(s): Esophageal dysphagia Intermittent symptoms with no worrisome signs. Will schedule EGD for evaluation. * Assessment & Plan Note - Elisa Abbott MD - 05/18/2024 4:13 PM CDT Associated Problem(s): Dyspepsia Will schedule upper endoscopy to re-evaluate for residual gastritis and/or peptic ulcer disease considering her symptoms of chronic dyspepsia and known history of H pylori gastritis. Follow up in 3 months documented in this encounter Plan of Treatment Not on file documented as of this encounter Visit Diagnoses Diagnosis Dyspepsia- Primary Dyspepsia and other specified disorders of function of stomach Esophageal dysphagia Dysphagia, pharyngoesophageal phase Functional diarrhea documented in this encounter Historical Medications * This list may reflect changes made after this encounter. cetirizine (ZyrTEC) 10 mg tablet Take 1 tablet (10 mg total) by mouth daily famotidine (PEPCID) 20 mg tablet Take 1 tablet every day by oral route as needed for 30 days. 04/20/2024 06/07/2024 added in this encounter Care Teams Plate Gauger Relationship Specialty Start Date End Date Tomasz Martinez PA [address] [place] [address] PCP - General 12/15/17 documented as of this encounter
--- OUTSIDE RECORDS SUMMARY | 2024-07-21 10:49 | XMS_ITS | Clinical Summary ---
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 before breakfast Active ondansetron (ZOFRAN) 4 mg tablet Take 1 tablet (4 mg total) by mouth every 4 (four) hours as needed for nausea or vomiting 15 tablet 02/18/20 20 Active ibuprofen (ADVIL,MOTRIN) 600 mg tabletIndications :Anti-inflammator y,Pain Take 1 tablet (600 mg total) by mouth every 6 (six) hours as needed for pain 30 tablet 11/09/19 21 Active Additional Information Patient not taking.Reported on 06/23/2024 busPIRone (BUSPAR) 5 mg tabletIndications :Generalized Anxiety Disorder Take 1 tablet (5 mg total) by mouth daily Active gabapentin (NEURONTIN) 100 mg capsule Take 2 capsules (200 mg total) by mouth 2 (two) times a day for 14 days 56 capsule 07/14/20 23 Active cetirizine (ZyrTEC) 10 mg tablet Take 1 tablet (10 mg total) by mouth daily Active dicyclomine (BENTYL) 10 mg capsule Take 1 capsule (10 mg total) by mouth 3 (three) times a day before meals 90 capsule 3 05/18/20 24 025 Active famotidine (PEPCID) 20 mg tablet Take 2 tablets (40 mg total) by mouth daily 60 tablet 11 06/07/20 24 025 Active bismuth subsalicylate 262 mg tablet,chewable Take 2 tablets (524 mg total) by mouth 4 (four) times a day for 14 days 112 tablet 06/23/[address] (PROTONIX) 40 mg EC tablet Take one pill twice daily for 14 days while on H pylori regimen. 28 tablet 06/23/20 24 Active metroNIDAZOLE (FLAGYL) 500 mg tabletIndications :Helicobacter pylori gastritis Take 1 tablet (500 mg total) by mouth 3 (three) times a day for 14 days 42 tablet 06/23/20 24 024 tetracycline (ACHROMYCIN,SUMYC IN) 500 mg capsule Take 1 capsule (500 mg total) by mouth 4 (four) times a day for 14 days 56 capsule 06/23/20 24 024 Active Problems Problem Noted Date Diagnosed Date Helicobacter pylori gastritis 06/23/2024 Positive H. pylori test 05/18/2024 Dyspepsia 05/18/2024 Assessment & Plan (05/18/2024 4:13 PM CDT): Will schedule upper endoscopy to re-evaluate for residual gastritis and/or peptic ulcer disease considering her symptoms of chronic dyspepsia and known history of H pylori gastritis. Follow up in 3 months Functional diarrhea 05/18/2024 Assessment & Plan (05/18/2024 4:17 PM CDT): Patient has long history of diarrhea especially after meals. Seems to worsened lately. Will restart dicyclomine 10 mg 3 times daily before meals. Advised to avoid salads. We will see the patient back in the office in couple months for re-evaluation. Family history of colon cancer 01/07/2023 Multinodular goiter (nontoxic) 11/30/2018 Assessment & Plan (11/30/2018 6:16 AM CDT): This is a 53-year-old female who was experiencing significant what appears to be local compressive symptoms with a large right thyroid goiter that was identified on CT imaging of the chest. Patient had a prior history of undergoing a left thyroid lobectomy for non cancer is condition over 15 years ago. Patient does take thyroid hormone replacement at 50 mcg of levothyroxine daily. Patient will require a thyroid sonogram and updated TSH level. Patient was provided with educational material pertaining to thyroid disorders and the medical and surgical management of thyroid disease. Patient will return back to my office after the studies done to discuss the results and further treatment recommendations. Esophageal dysphagia 11/30/2018 Assessment & Plan (05/18/2024 4:14 PM CDT): Intermittent symptoms with no worrisome signs. Will schedule EGD for evaluation. Assessment & Plan (11/30/2018 6:18 AM CDT): Patient is experiencing symptoms of cervical esophageal dysphagia that has gotten worse over the past couple weeks. Patient reports that solid foods are difficult to swallow and the restriction is localized to the root of her neck. This is the location where patient is noted on physical exam and CT imaging to have a large right-sided thyroid goiter. This most likely is contributing to local compressive symptoms. However, patient is also exhibiting symptoms of reflux that could also possibly cause problem swallowing. Patient may require a barium swallow esophagram verses upper endoscopy. We will initially treat her with anti-reflux medication. Gastroesophageal reflux disease without esophagi tis 11/30/2018 Assessment & Plan (11/30/2018 6:19 AM CDT): Ranitidine 150 mg b.i.d. Patient was provided with educational material regarding reflux precautions. Patient was instructed to refrain from eating a meal approximately 3 hours prior to bedtime. Patient was instructed to elevate the head of the bed by approximately 8 inches. Patient was to refrain from consuming spicy greasy fatty foods, dairy products, and excessive caffeine use. Patient was also advised to increase water consumption. Patient was also instructed on weight reduction and exercise regimen. Patient was also instructed on the importance of compliance with medications. Encounters Date Type Department Care Team Description 4 1:15 PM DIALS SUPERVISOR Office Visit [facility] Gastroenterology at [address] [place] [address] Parvez Leach NP Helicobacter pylori gastritis (Primary Dx); Family history of colon cancer 4 Telephone [facility] at [address] [place] [address] Orly Husain Pathology Results 4 8:30 AM DIALS SUPERVISOR - 4 9:00 AM DIALS SUPERVISOR Surgery [address] [address] Elisa Abbott MD ESOPHAGOGASTRODUODENOSCOPY BIOPSY 4 8:12 AM DIALS SUPERVISOR Anesthesia Event [address] [address] Dillon Alva MD 4 7:10 AM DIALS SUPERVISOR - 4 9:23 AM DIALS SUPERVISOR Hospital Encounter [address] [address] Elisa Abbott MD Positive H. pylori test; Dyspepsia Discharge Disposition: Discharge to home or self care 4 Orders Only [address] [address] Elisa Abbott MD 4 Telephone [facility] Gastroenterology at [address] [address] Shania Landis MA 4 Telephone [facility] Gastroenterology at [address] [place] [address] Shania Landis MA 4 9:30 AM CDT Office Visit [facility] Gastroenterology at [address], [place] [address] Elisa Abbott MD Dyspepsia (Primary Dx); Esophageal dysphagia; Functional diarrhea 4 Telephone [facility] Gastroenterology at [address], [place] [address] Shania Landis MA from Last 3 Months Immunizations Name Administration Dates Next Due Influenza, Quadrivalent, Split, Intramuscular Influenza, Quadrivalent, Spl it, Preservative Free, Intramuscular 06/30/2022 Surgical History Surgery Date Site/Laterality Comments THYROID LOBECTOMY DILATION AND CURETTAGE OF UTERUS COLONOSCOPY 01/18/2018 COLONOSCOPY 02/03/2023 UPPER GASTROINTESTINAL ENDOSCOPY Medical History Medical History Date Comments Chronic diarrhea Depression Hypothyroidism Family History Medical History Relation Name Comments Colon cancer Father Relation Name Status Comments Father Social History Tobacco Use Types Packs/Day Years [...] on file 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 DIALS SUPERVISOR Gender Identity Not on file Sexual Orientation Not on file Obstetrics History Last Filed Vital Signs Vital Sign Reading Time Taken Comments Blood Pressure 138/90 06/23/2024 12:56 PM DIALS SUPERVISOR Pulse 78 06/23/2024 12:56 PM DIALS SUPERVISOR Temperature 36.8 ??C (98.3 ??F) 06/07/2024 9:04 AM CS T Respiratory Rate 18 06/07/2024 9:04 AM DIALS SUPERVISOR Oxygen Saturation 96% 06/23/2024 12:56 PM DIALS SUPERVISOR Inhaled Oxygen Concentration - - Weight 111 kg (244 lb 12.8 oz) 06/23/2024 12:56 PM DIALS SUPERVISOR Height 154.9 cm (5' 1 ) 06/23/2024 12:56 PM DIALS SUPERVISOR Body Mass Index 46.25 06/23/2024 12:56 PM DIALS SUPERVISOR Plan of Treatment Health Maintenance Due Date Last Done Comments Breast Cancer Screening-Mammogram 1965 Cervical Cancer Screening 1965 Depression Screening 1965 Hepatitis C Screening 1965 DTaP/Tdap/Td Vaccine (1 - Tdap) 1976 Hepatitis B Screening 1983 Regular Well Visit/Exam 18-64 1983 Zoster Vaccine (1 of 2) 2015 Covid-19 Vaccine ( - season) 2024 06/30/2022, 07/22/2021, 10/19/2020, Additional history exists Influenza Vaccine (#1) 2024 05/18/2023, 2021 Colon Cancer Screening-Colonoscopy 02/03/2033 02/03/2023, 01/18/2018 Colon Cancer Screening-CT Colonography Discontinued 02/03/2023, 01/18/2018 Colon Cancer Screening-DNA Stool Discontinued 02/03/2023, 01/18/2018 Colon Cancer Screening-FIT Discontinued 02/03/2023, Colon Cancer Screening-Sigmoidoscopy Discontinued 02/03/2023, 01/18/2018 Pneumococcal vaccine <65 Aged Out No longer eligible based on patient's age to complete this topic Procedures Procedure Name Priority Date/Time Associated Diagnosis Comments SURGICAL PATHOLOGY Routine 06/07/2024 12:01 PM DIALS SUPERVISOR H. PYLORI UREASE SCREEN (SAMPSON TEST) STAT 06/07/2024 8:28 AM DIALS SUPERVISOR BOUGIE DILATION 06/07/2024 8:02 AM DIALS SUPERVISOR Positive H. pylori test Dyspepsia ESOPHAGOGASTRODUODENOSCOPY BIOPSY 06/07/2024 8:02 AM DIALS SUPERVISOR Positive H. pylori test Dyspepsia EGD 06/07/2024 7:21 AM DIALS SUPERVISOR COLONOSCOPY 02/03/2023 10:29 AM CDT from Last 3 Months or Most Recently Relevant to Health Maintenance Results * Surgical pathology (06/07/2024 12:01 PM DIALS SUPERVISOR) Gastric/Stomach biopsy 06/07/2024 12:01 PM DIALS SUPERVISOR 06/07/2024 12:01 PM DIALS SUPERVISOR Narrative 06/09/2024 8:56 AM DIALS SUPERVISOR EPIC results best viewed via link to PDF [facility] Department of Pathology [address] [place] [id number] Note to Patients: This report may contain a detailed description of human tissue sent by a health care provider to the laboratory for pathologic evaluation. The content of this report is essential for diagnosis and may provide important critical findings. This information may be unfamiliar to patients to review without a medical professional present. It is advised that the patient review this report in the presence of a health care provider who can answer questions and explain the details. Final Report Patient Name: ??ELIZABETH VELASQUEZ Address: ??[address], ??[place], [place] ??[address] Gender: ??F : ??1965 (Age: 58) Service: ??Gastro Location: ??[facility] Hospital #: ??[id number] Patient Type: ??[facility] Accession # ?[id number] Taken: ??06/07/2024 Received: ??06/07/2024 Accessioned: ??06/07/2024 Reported: ??06/09/2024 Physician(s):Dr. Elisa Abbott M.D. Diagnosis: A. ??Stomach, biopsy: ? - Antral type gastric mucosa showing mild chronic active gastritis. ? - Negative for intestinal metaplasia and dysplasia. ? - Positive for Helicobacter. B. ??Esophagus, biopsy: ? - Fragments of benign squamous epithelium. Antonio Garcia M.D. Report Electronically Reviewed and Signed Out By ??Antonio Garcia M.D. ??06/09/2024 08:56:06 Specimen(s) Received: A: Gastric biopsy B: Esophageal Biopsy Microscopic Description: A. Sections show antral-type gastric mucosa showing mild chronic active gastritis. ??There is no evidence of intestinal metaplasia or dysplasia. ??In order to classify the gastritis further, a Helicobacter immunohistochemical stain was performed with adequate controls and is positive. B. Sections show fragments of benign squamous epithelium. ??No significant inflammatory infiltrate is seen. ??No fungal elements or viral cytopathic effect is seen. ??There is no evidence of dysplasia. ??No glandular mucosa is present. ??Additionally, a PAS for fungus is negative. ??All controls are adequate. Clinical History: Positive H. pylori test. ??Dyspepsia. ??EGD. Gross Description: The specimen is submitted in two formalin containers labeled ELIZABETH VELASQUEZ . A. ??The first container is labeled gastric biopsy . It is 3 fragments of castro tissue between 1 and 2 mm. All in A. B. ??The second container is labeled esophageal biopsy . It is 3 fragments of castro tissue between 1 and 2 mm. All in B. T.A. Julio Collire.Sarahi., P.A./Muna Gage M.D. REPORT IMAGES AND SCANNED DOCUMENTS, IF INCLUDED, ONLY VIEWABLE IN PDF VERSION OF REPORT The performance characteristics of some immunohistochemical stains, fluorescence in-situ hybridization tests and immunophenotyping by flow cytometry cited in this report (if any) were determined by the Surgical Pathology Department at [facility] as part of an ongoing corporate quality engineer program and in compliance with federally mandated regulations drawn from the Clinical Laboratory Improvement Act of 1988 (CLIA '88). ??Some of these tests rely on the use of analyte specific reagents and are subject to specific labeling requirements by the US Food and Drug Administration. ??Such diagnostic tests may only be performed in a facility that is certified by the Department of Health and Human Services as a high complexity laboratory under CLIA '88. The FDA has determined that such clearance or approval is not necessary. ??This test is used for clinical purposes. ??It should not be regarded as investigational or for research. ??Nevertheless, federal rules concerning the medical use of analyte specific reagents require that the following disclaimer be attached to the report: This test was developed and its performance characteristics determined by the Surgical Pathology Department [facility]. ??It has not been cleared or approved by the U. S. Food and Drug Administration. Note for decalcified specimens: This assay has not been validated on decalcified tissues. Results should be interpreted with caution given the possibility of false negativity on decalcified specimens Elisa Abbott MD LAB PATHOLOGY ORDERABLES F inal Result * H. pylori urease screen (SAMPSON test) Tissue (06/07/2024 8:28 AM DIALS SUPERVISOR) H. pylori, rapid (SAMPSON) Negative Negative Tissue 06/07/2024 8:28 AM DIALS SUPERVISOR 06/07/2024 12:00 PM DIALS SUPERVISOR Elisa Abbott MD LAB MICROBIOLOGY - GENERAL ORDERABLES Final Result [facility] [address] [facility] Department [place] [address] * EGD (06/07/2024 7:21 AM DIALS SUPERVISOR) Anatomical Region Laterality Modality Other Narrative Procedure Note Elisa Abbott MD - 06/07/2024 7:21 AM CST [facility] Patient Name: Elizabeth Velasquez Procedure Date: 06/07/2024 7:21 AM Date of : 1965 Admit Type: Outpatient Age: 58 Gender: Female Attending MD: Elisa Abbott M.D. Room: [facility] ENDOSCOPY ROOM 1 Note Status: [...] passed under direct vision. The Endoscope [id number] was introduced through the mouth, and advanced [...] 7:21 AM Procedure Code(s): --- Professional --- 55462, Esophagogastroduodenoscopy, flexible, transoral; with biopsy, single or multiple 62926, Dilation of esophagus, by unguided sound or bougie, single or multiple passes Diagnosis Code(s): --- Professional --- K31.89, Other diseases of stomach and duodenum R13.10, Dysphagia, unspecified CPT copyright 2020 [employer]. All rights reserved. The codes documented in this report are preliminary and upon shot lighter reviewmay be revised to meet current compliance requirements. Recognized by the [employer] for promoting quality in endoscopy us Elisa Abbott MD ENDOSCOPY PROCEDURES Final Result * COLONOSCOPY (02/03/2023 10:29 AM CDT) Anatomical Region Laterality Modality Other Narrative Procedure Note Elisa Abbott MD - 02/03/2023 10:[address] [facility] Patient Name: Elizabeth Velasquez Procedure Date: 02/03/2023 10:29 AM Date of : 1965 Admit Type: Outpatient Age: 57 Gender: Female Attending MD: Elisa Abbott M.D. Room: [facility] ENDOSCOPY ROOM 1 Note Status: Finalized Patient Profile: This is a 57 year old female. Father had coloncancer. Noted c/o diarrhea for a long time, with loosebowel movements after eating. Procedure: Colonoscopy Indications: Screening in patient at increased risk: Familyhistory of 1st-degree relative with colorectal cancer, Last colonoscopy: January 2018 Referring MD: Tomasz Martinez PA-C Providers: Elisa Abbott M.D. Impression: - The entire examined colon is normal. Biopsied. - Internal hemorrhoids. Recommendation: - Await pathology results. - Repeat colonoscopy in 5 years for surveillance. - Continue present medications. Trial ofdicyclomine 10 mg twice daily before meals for 3 months Medicines: Monitored Anesthesia Care Complications: No immediate [...] noanticoagulant or antiplatelet agents. ASA Grade Assessment: II -A patient with mild systemic disease. After reviewing the risks and benefits, the patient was deemed in satisfactory condition to undergo the procedure. The benefits, risks and alternatives of theprocedure and sedation were discussed and informed consentwas obtained. All questions were answered. Please referto the signed informed consent document in the medical record. The bowel preparation used was Miralax and bisacodyl tablets via split dose instruction. The scope was passed under direct vision. The Pediatric Colonoscope [id number] was introducedthrough the anus and advanced to the the cecum, identifiedby appendiceal orifice and ileocecal valve. Thequality of the bowel preparation was good. Bowel prep was administered using a split dose. Findings: The perianal and digital rectal examinations were normal. The cecum appeared normal. The colon (entire examined portion) appeared normal. No polyps and no mass lesions noted. Random biopsies for histology were taken with acold forceps from the entire colon for evaluation of microscopiccolitis. Internal hemorrhoids were found during retroflexion. The hemorrhoids were small. Electronically signed by Elisa Abbott M.D. Elisa Abbott M.D. 02/03/2023 12:48:17 PM Number of Addenda: 0 Note Initiated On: 02/03/2023 10:29 AM Procedure Code(s): --- Professional --- 58260, Colonoscopy, flexible; with biopsy, single or multiple Diagnosis Code(s): --- Professional --- Z80.0, Family history of malignant neoplasm of digestive organs K64.8, Other hemorrhoids CPT copyright 2020 [employer]. All rights reserved. The codes documented in this report are preliminary and upon shot lighter reviewmay be revised to meet current compliance requirements. Recognized by the [employer] for promoting quality in endoscopy Elisa Abbott MD ENDOSCOPY PROCEDURES Final Result from Last 3 Months or Most Recently Relevant to Health Maintenance [place] [employer] [place] [employer] [place] [employer] [place] For more information, please contact: [phone] * Full Code (Latest Code Status on File) Date Activated Date Inactivated Comments 06/07/2024 7:19 AM 06/07/2024 1:29 PM * Full Code Date Activated Date Inactivated Comments 06/07/2024 7:19 AM 06/07/2024 7:19 AM * Full Code Date Activated Date Inactivated Comments 02/03/2023 10:21 AM 02/03/2023 5:32 PM * Full Code Date Activated Date Inactivated Comments 02/03/2023 10:21 AM 02/03/2023 10:21 AM * Full Code Date Activated Date Inactivated Comments 01/18/2018 11:16 AM 01/18/2018 3:21 PM Care Teams Shoemaking Finisher Relationship Specialty Start Date End Date Tomasz Martinez PA [address] [place] [address] PCP - General 12/15/17
--- OUTSIDE RECORDS SUMMARY | 2024-07-21 10:49 | XMS_ITS | Encounter Summary ---
Author Organization [facility] Address [address] [place] [address] Care Team Providers Care Dialysis Patient Care Technician Name Role Phone Tomasz Martinez Primary Care Provider [phone] Reason for Visit * Reason Onset Date Comments Pathology Results 06/13/2024 Encounter Details Date Type Department Care Team (Late st Contact Info) Description 06/13/2024 Telephone [facility] Gastroenterology at [address] [place] [address] Orly Husain Pathology Results Social History Tobacco Use Types Packs/Day Years [...] on file 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 RELIEF DRILLER Gender Identity Not on file Sexual Orientation Not on file documented as of this encounter Miscellaneous Notes * Telephone Encounter - Orly Husain - 06/13/2024 4:08 PM CST Lvm for pt to return call to discuss results and to see if she can come in to see Parvez on 06/23/24 at 1:15 pm. EF DRILLER * Telephone Encounter - Orly Husain - 06/13/2024 4:08 PM CST ----- Message from Parvez Leach NP sent at 06/13/2024 2:16 PM RELIEF DRILLER ----- Okay to add her to my schedule on June 23 after lunch so that we can start her on treatment for the H pylori. I only have 10 scheduled that day and only two after lunch. ----- Message ----- From: Orly Husain Sent: 06/13/2024 12:31 PM RELIEF DRILLER To: Elisa Abbott MD; # Next opening with Dr. Abbott is in October. Parvez and Ira's next available appointments are end of Sep. Please advise if pt should be worked in somewhere. ----- Message ----- From: Elisa Abbott MD Sent: 06/12/2024 5:47 PM RELIEF DRILLER To: [facility] Patient need to be seen in the office by myself or by Ira or by Parvez Diagnosis gastritis with H.pylori ----- Message ----- From: Interface, Lab Results In Sent: 06/09/2024 8:58 AM RELIEF DRILLER To: Elisa Abbott MD EF DRILLER documented in this encounter Plan of Treatment Not on file documented as of this encounter Visit Diagnoses Not on filedocumented in this encounter Care Teams Dialysis Patient Care Technician Relationship Specialty Start Date End Date Tomasz Martinez PA [address] [place] [address] PCP - General 12/15/17 documented as of this encounter
--- OUTSIDE RECORDS SUMMARY | 2024-07-21 10:49 | XMS_ITS | Encounter Summary ---
Author Organization [facility] Healthcare Address [address] [place] [address] Care Team Providers Care Air Traffic Supervisor Name Role Phone Tomasz Martinez Primary Care Provider [phone] Reason for Visit * Auth/Cert (Routine) Specialty Diagnoses / Procedures Referred By Carolina t Referred To Contact Diagnoses Family history of colon cancer Family history of colon cancer [Z80.0] Procedures HI COLONOSCOPY FLX DX W/COLLJ SPEC WHEN PFRMD COLONOSCOPY Referral ID Status Reason Start Date Expiration Date Visits Re quested Visits Authorized [id number] 1 1 Encounter Details Date Type Department Care Team (Late st Contact Info) Description 02/03/2023 1:10 PM CDT - 02/03/2023 1:40 PM CDT Surgery [address] [id number] Elisa Abbott MD [address] [place] [id number] COLON BIOPSY Surgery Details Date/Time Status Location OR Service Patient Class Case Class Case Type Trauma Case? 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 Gender Identity Not on file Sexual Orientation Not on file documented as of this encounter Last Filed Vital Signs Vital Sign Reading Time Taken Comments Blood Pressure 137/87 02/03/2023 1:15 PM CDT Pulse 68 02/03/2023 1:15 PM CDT Temperature 36.6 ??C (97.8 ??F) 02/03/2023 1:15 PM CD T Respiratory Rate 16 02/03/2023 1:15 PM CDT Oxygen Saturation 96% 02/03/2023 1:15 PM CDT Inhaled Oxygen Concentration - - Weight 114.3 kg (252 lb) 02/03/2023 10:31 AM CDT Height 154.9 cm (5' 1 ) 02/03/2023 10:31 AM CDT Body Mass Index 47.61 02/03/2023 10:31 AM CDT documented in this encounter Medications at Time of Discharge busPIRone (BUSPAR) 5 mg tabletIndication s:Generalized Anxiety Disorder Take 1 tablet (5 mg total) by mouth daily ibuprofen (ADVIL,MOTRIN) 600 mg tabletIndication s:Anti-inflammat ory,Pain Take 1 tablet (600 mg total) by mouth every 6 (six) hours as needed for pain 30 tablet 11/08/2020 levothyroxine (SYNTHROID, LEVOTHROID) 50 mcg tablet Take 1 tablet (50 mcg total) by mouth tallow refiner before breakfast ondansetron (ZOFRAN) 4 mg tablet Take 1 tablet (4 mg total) by mouth every 4 (four) hours as needed for nausea or vomiting 15 tablet 02/18/2020 documented as of this encounter Discharge Disposition Disposition Code Departure Means Destination Comment s Discharge to home or self care documented in this encounter H&P Notes * Elisa Abbott MD - 02/03/2023 12:41 PM CDT History and Physical Date of visit: 02/03/2023 Subjective: Patient is a 57 y.o. female presented for evaluation for screening for colon cancer. Father had colon cancer. Noted complain of diarrhea especially after eating.. Past Medical History: Diagnosis Date Chronic diarrhea Depression Hypothyroidism Past Surgical History: Procedure Laterality Date COLONOSCOPY 01/18/2018 COLONOSCOPY 02/03/2023 DILATION AND CURETTAGE OF UTERUS THYROID LOBECTOMY Medications Prior to Admission Medication Sig Dispense Refill Last Dose busPIRone (BUSPAR) 5 mg tablet Take 1 tablet (5 mg total) by mouth daily 02/02/2023 ibuprofen (ADVIL,MOTRIN) 600 mg tablet Take 1 tablet (600 mg total) by mouth every 6 (six) hours asneeded for pain 30 tablet 0 Past Week levothyroxine (SYNTHROID, LEVOTHROID) 50 mcg tablet Take 1 tablet (50 mcg total) by mouth tallow refiner before breakfast 02/02/2023 ondansetron (ZOFRAN) 4 mg tablet Take 1 tablet (4 mg total) by mouth every 4 (four) hours as neededfor nausea or vomiting 15 tablet 0 Past Month raNITIdine (ZANTAC) 150 mg tablet Take 1 tablet (150 mg total) by mouth 2 (two) times a day 60 tablet 2 No Known Allergies Social History Tobacco Use Smoking status: Former Smokeless tobacco: Never Substance and Sexual Activity Drug use: None Sexual activity: None Alcohol Use: Not on file Family History Problem Relation Age of Onset Colon cancer Father Physical Exam: Patient is awake and answers well. Eyes: no jaundice. Lungs: CTA anteriorly. ENT: no mouth ulcers. Abdomen: soft, no distention, no tenderness, bowel sounds positive. Extremities: no edema. Skin: no rash. GI IMPRESSION: 1. Screening for colon cancer GI PLAN/RECOMMENDATIONS: colonoscopy Elisa Abbott MD documented in this encounter Procedure Notes * Elisa Abbott MD - 02/03/2023 10:29 AM CDTAssociated Order(s): COLONOSCOPY [facility] Patient Name: Elizabeth Oates Procedure Date: 02/03/2023 10:29 AM Date of : 1965 Admit Type: Outpatient Age: 57 Gender: Female Attending MD: Elisa Abbott M.D. Room: [facility] ROOM 1 Note Status: Finalized Patient Profile: This is a 57 year old female. Father had colon cancer. Noted c/o diarrhea for a long time, with loose bowel movements after eating. Procedure: Colonoscopy Indications: Screening in patient at increased risk: Family history of 1st-degree relative with colorectal cancer, Last colonoscopy: January 2018 Referring MD: Tomasz Martinez PA-C Providers: Elisa Abbott M.D. Impression: - The entire examined colon is normal. Biopsied. - Internal hemorrhoids. Recommendation: - Await pathology results. - Repeat colonoscopy in 5 years for surveillance. - Continue present medications. Trial of dicyclomine 10 mg twice daily before meals for [...] anticoagulant or antiplatelet agents. ASA Grade Assessment: II - A patient with mild systemic disease. After reviewing the risks and benefits, the patient was deemed in satisfactory condition to undergo the procedure. The benefits, risks and alternatives of the procedure and sedation were discussed and informed consent was obtained. All questions were answered. Please refer to the signed informed consent document in the medical record. The bowel preparation used was Miralax and bisacodyl tablets via split dose instruction. The scope was passed under direct vision. The Pediatric Colonoscope PCF-H190L [id number] was introduced through the anus and advanced to the the cecum, identified by appendiceal orifice and ileocecal valve. The quality of the bowel preparation was good. Bowel prep was administered using a split dose. Findings: The perianal and digital rectal examinations were normal. The cecum appeared normal. The colon (entire examined portion) appeared normal. No polyps and no mass lesions noted. Random biopsies for histology were taken with a cold forceps from the entire colon for evaluation of microscopic colitis. Internal hemorrhoids were found during retroflexion. The hemorrhoids were small. Electronically signed by Elisa Abbott M.D. Elisa Abbott M.D. 02/03/2023 12:48:17 PM Number of Addenda: 0 Note Initiated On: 02/03/2023 10:29 AM Procedure Code(s): --- Professional --- 51288, Colonoscopy, flexible; with biopsy, single or multiple Diagnosis Code(s): --- Professional --- Z80.0, Family history of malignant neoplasm of digestive organs K64.8, Other hemorrhoids CPT copyright 2020 [employer]. All rights reserved. The codes documented in this report are preliminary and upon regulatory law specialist review may be revised to meet current compliance requirements. Recognized by the [employer] for promoting quality in endoscopy documented in this encounter Miscellaneous Notes * Perioperative Nursing Note - Rosario Patel RN - 02/03/2023 1:[address] Abbott discharged patient to home to follow up in 5 years for next colonoscopy. documented in this encounter Plan of Treatment Not on file documented as of this encounter Procedures Procedure Name Priority Date/Time Associated Diagnosis Comments SURGICAL PATHOLOGY STAT 02/03/2023 2: 33 PM CDT Family history of colon cancer COLON BIOPSY 02/03/2023 12:13 PM CDT Family history of colon cancer COLONOSCOPY 02/03/2023 10:29 AM CDT documented in this encounter Results * Surgical pathology (02/03/2023 2:33 PM CDT) Tissue (Colon, Biopsy) 02/03/2023 12:36 PM CDT Narrative PATHOLOGY [facility] - 02/04/2023 10:20 AM CDT EPIC results best viewed via link to PDF [facility] Department of Pathology [address] [place] [address] Note to Patients: This report may contain [...] the details. Final Report Patient Name: ??ELIZABETH OATES Address: ??[address] [place] [address], ??[place], [place] ??[address] Gender: ??F : ??1965 (Age: 57) Service: ??Gastro Location: ??[facility] Hospital #: ??[id number] Patient Type: ??[facility] Accession # ?[id number] Taken: ??02/03/2023 Received: ??02/03/2023 Accessioned: ??02/03/2023 Reported: ??02/04/2023 Physician(s):Dr. Elisa Abbott M.D. Diagnosis: Colon, random, biopsy: ? - Melanosis coli. ? - No evidence of dysplasia or malignancy. Christ Lieberman MD Report Electronically Reviewed and Signed Out By ??Christ Lieberman MD ??02/04/2023 10:20:21 Specimen(s) Received: A: Random colon biopsies Microscopic Description: Microscopic examination shows fragments of colonic mucosa which are unremarkable aside from melanosis coli. ??There is no evidence of dysplasia or malignancy. Clinical History: Family history of colon cancer. ??Colonoscopy. Gross Description: The specimen is submitted in a single formalin filled container labeled ELIZABETH OATES and random colon biopsies . ??It is multiple fragments of castro mucosa, 2-3 mm. ??All in one cassette. Javier Collier R.N., P.Kimmy/Muna Gage M.D. REPORT IMAGES AND SCANNED DOCUMENTS, IF INCLUDED, ONLY VIEWABLE IN PDF VERSION OF REPORT The performance characteristics of some immunohistochemical stains, fluorescence in-situ hybridization tests and immunophenotyping by flow cytometry cited in this report (if any) were determined by the Surgical Pathology Department at [facility] as part of an ongoing customer quality specialist program and in compliance with federally mandated [...] characteristics determined by the Surgical Pathology Department [facility]. ??It has not been cleared or approved by the U. S. Food and Drug Administration. Note for decalcified specimens: This assay has not been validated on decalcified tissues. Results should be interpreted with caution given the possibility of false negativity on decalcified specimens us Elisa Abbott MD LAB PATHOLOGY ORDERABLES F inal Result PATHOLOGY [facility] [address] [place] [address] * COLONOSCOPY (02/03/2023 10:29 AM CDT) Anatomical Region Laterality Modality Other Narrative Procedure Note Elisa Abbott MD - 02/03/2023 10:29 AM CDT [facility] Patient Name: Elizabeth Oates Procedure Date: 02/03/2023 10:29 AM Date of : 1965 Admit Type: Outpatient Age: 57 Gender: Female Attending MD: Elisa Abbott M.D. Room: [facility] ROOM 1 Note Status: Finalized Patient Profile: This is a 57 year old female. Father had coloncancer. Noted c/o diarrhea for a long time, with loosebowel movements after eating. Procedure: Colonoscopy Indications: Screening in patient at increased risk: Familyhistory of 1st-degree relative with colorectal cancer, Last colonoscopy: January 2018 Referring MD: BEVERLEY FeldmanC Providers: Elisa Abbott M.D. Impression: - The [...] under direct vision. The Pediatric Colonoscope PCF-H190L [id number] was introducedthrough the anus and advanced to [...] 10:29 AM Procedure Code(s): --- Professional --- 12859, Colonoscopy, flexible; with biopsy, single or multiple Diagnosis Code(s): --- Professional --- Z80.0, Family history of malignant neoplasm of digestive organs K64.8, Other hemorrhoids CPT copyright 2020 [employer]. All rights reserved. The codes documented in this report are preliminary and upon regulatory law specialist reviewmay be revised to meet current compliance requirements. Recognized by the [employer] for promoting quality in endoscopy Elisa Abbott MD ENDOSCOPY PROCEDURES Final Result documented in this encounter Visit Diagnoses Diagnosis Family history of colon cancer- Primary Family history of malignant neoplasm of gastrointestinal tract Family history of colon cancer Family history of malignant neoplasm of gastrointestinal tract documented in this encounter Admitting Diagnoses Diagnosis Family history of colon cancer Family history of malignant neoplasm of gastrointestinal tract documented in this encounter Administered Medications Inactive Administered Medications - up to 3 most recent administrations Medication Order MAR Action Action Date Dose Rate Site ondansetron (ZOFRAN) injection 4 mg 4 mg, intravenous, Administer over 2 Minutes, Every 30 min PRN, nausea, vomiting, Starting on Wed02/03/23 at 1021, For 2 doses, Recovery (GI), Indications: Nausea and VomitingIndications:Nausea and Vomiting Given 02/03/2023 11:08 AM CDT 4 mg sodium chloride 0.9% flush 0.5-20 mL 0.5-20 mL, intra-catheter, Every 8 hours scheduled, First dose on Wed02/03/23 at 1400, Pre-Procedure (GI), Flush volume based on line type and size. sodium chloride 0.9% flush 0.5-20 mL 0.5-20 mL, intra-catheter, As needed, line care, Starting on Wed02/03/23 at 1021, Pre-Procedure (GI), Flush volume based on line type and size. Flush before and after each use. sodium chloride 0.9% infusion 30 mL/hr, intravenous, Continuous, Starting on Wed02/03/23 at 1100, Pre-Procedure (GI) New Bag 02/03/2023 11:08 AM CDT 30 mL/hr 30 mL/hr sodium chloride 0.9% infusion 125 mL/hr, intravenous, Continuous, Starting on Wed02/03/23 at 1100, Recovery (GI) New Bag 02/03/2023 12:18 PM CDT 100 mL/hr documented in this encounter Discontinued Medications Medication Sig Discontinue Reason Start Date End Da te famotidine (PEPCID) 20 mg tablet Take 1 tablet (20 mg total) by mouth 2 (two) times a day Therapy completed 02/18/2020 02/03/2023 traMADoL (ULTRAM) 50 mg tablet Take 1-2 tablets (50-100 mg total) by mouth every 6 (six) hours as needed for pain (1 tablet for mild to moderate pain or 2 tablets for severe pain) Therapy completed 02/18/2020 02/03/2023 raNITIdine (ZANTAC) 150 mg tablet Take 1 tablet (150 mg total) by mouth 2 (two) times a day Stop Taking at Discharge 11/29/2018 02/03/2023 documented as of this encounter Historical Medications * This list may reflect changes made after this encounter. busPIRone (BUSPAR) 5 mg tabletIndications :Generalized Anxiety Disorder Take 1 tablet (5 mg total) by mouth daily added in this encounter Active and Recently Administered Medications Times are shown in CDT. Scheduled Medication Order 02/01/2023 02/02/2023 02/03/2023 sodium chloride 0.9% flush 0.5-20 mL 0.5-20 mL, intra-catheter, Every 8 hours scheduled, First dose on Wed02/03/23 at 1400, Pre-Procedure (GI), Flush volume based on line type and size. Continuous Medication Order 02/01/2023 02/02/2023 02/03/2023 sodium chloride 0.9% infusion 30 mL/hr, intravenous, Continuous, Starting on Wed02/03/23 at 1100, Pre-Procedure (GI) 1108 (New Bag - Prov ider: Rosario Patel RN)1727 (Due: Stopped) sodium chloride 0.9% infusion 125 mL/hr, intravenous, Continuous, Starting on Wed02/03/23 at 1100, Recovery (GI) 1218 (New Bag - Prov ider: Vinita Engel MD)1727 (Due: Stopped) PRN Medication Order 02/01/2023 02/02/2023 02/03/2023 ondansetron (ZOFRAN) injection 4 mg 4 mg, intravenous, Administer over 2 Minutes, Every 30 min PRN, nausea, vomiting, Starting on Wed02/03/23 at 1021, For 2 doses, Recovery (GI), Indications: Nausea and Vomiting 1108 (Given - Provid er: Rosario Patel RN) sodium chloride 0.9% flush 0.5-20 mL 0.5-20 mL, intra-catheter, As needed, line care, Starting on Wed02/03/23 at 1021, Pre-Procedure (GI), Flush volume based on line type and size. Flush before and after each use. documented in this encounter Orders Medications Ordered That Travis ht Not Have Been Administered Count Last Ordered Date First Ordered Date sodium chloride 0.9% flush 0.5-20 mL 2 11/2022 sodium chloride 0.9% infusion 1 02/03/2023 Discharge Count Last Ordered Date First Orde red Date DISCHARGE PATIENT 1 02/03/2023 documented in this encounter Care Teams Air Traffic Supervisor Relationship Specialty Start Date End Date Tomasz Martinez PA [address] [place] [address] PCP - General 12/15/17 documented as of this encounter
--- OUTSIDE RECORDS SUMMARY | 2024-07-21 10:49 | XMS_ITS | Encounter Summary ---
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 Abbott on 05/18 to discuss current GI issues. * Telephone Encounter - Orly Husain - 03/24/2024 4:07 PM CDT Received referral from Tomasz Martinez PA-C for patient to have a colonoscopy for hx of colon polyps.Called pt to see why her PCP wanted a colonoscopy done when she had one last year and wasn't supposed to repeat for 5 years. Pt states she's having 'stomach issues' and every time she eats, it 'goes right through' her. Asked pt if she completed the 3 month course of dicyclomine that was given to her at her colonoscopy last January. She stated she did take all of it but feels like maybe she needs more. Please advise. documented in this encounter Plan of Treatment Not on file documented as of this encounter Visit Diagnoses Not on filedocumented in this encounter Care Teams Loan Examiner Relationship Specialty Start Date End Date Tomasz Martinez PA [address] [place] [address] PCP - General 12/15/17 documented as of this encounter
--- OUTSIDE RECORDS SUMMARY | 2024-07-21 10:49 | XMS_ITS | Encounter Summary ---
Author Organization [facility] Healthcare Address [address] [place] [address] Care Team Providers Care Touch Up Edger Name Role Phone Tomasz Martinez Primary Care Provider Reason for Visit * Auth/Cert (Routine) Specialty Diagnoses / Procedures Referred By Carolina t Referred To Contact Diagnoses Family history of colon cancer Family history of colon cancer [Z80.0] Procedures NE COLONOSCOPY FLX DX W/COLLJ SPEC WHEN PFRMD COLONOSCOPY Referral ID Status Reason Start Date Expiration Date Visits Re quested Visits Authorized [id number] 1 1 Encounter Details Date Type Department Care Team (Late st Contact Info) Description 02/03/2023 12:18 PM CDT Anesthesia Event [facility] [address] [place] [address] [place] [address] [facility] [address] [place] [address] Vinita Engel MD [address] [place] [address] Anesthesia Record Procedure Summary Procedure Name Responsible Anesthesiologist Anesthesia Start Time Anesthesia Stop Time COLON BIOPSY Melvin Dudley MD 02/03/23 1218 0 02/03/23 1242 Events Date Time Event Comment 02/03/2023 1217 1218 In Room 1218 An Start 1218 An Start Data 1220 Start Supplemental O2 1222 Patient Positioned Laterally 1224 An Induction The patient was reevaluated immediately before moderate or deep sedation use and before anesthesia induction. 1225 Anesthesia Ready 1238 an stop data 1238 Out of Room 1242 An Stop 1242 Handoff to RN I completed my handoff [...] the time of handoff: No value filed. Meds Name Total lidocaine (cardiac) syringe 2 % 50 mg propofol 200 mg sodium chloride 0.9% infusion 0 mL * Agents Name O2 * Blood No blood administrations on file. Lines, Drains, and Airways Type Details Placement Removal Peripheral IV Placement Date: 12/22; Placement Time: 1105; Catheter Size: 20 G; Orientation: Right; Location: Antecubital; Site Prep: Chlorhexidine; Technique: Anatomical landmarks; Inserted by: Rosario Patel RN; Insertion Attempts: 1; Patient Tolerance: Tolerated well; Removal Date: 02/03/23; Removal Time: 1308 02/03/23 1105 by Rosario Patel RN 02/03/23 1308 by Rosario Patel RN documented in this encounter Social History Tobacco Use Types Packs/Day Years Used Date Smoking Tobacco: Former Smokeless Tobacco: Never Comments Unknown Sex and Gender Information Value Date Recorded Sex Assigned at Not on file 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 Gender Identity Not on file Sexual Orientation Not on file documented as of this encounter OR Notes * Anesthesia Postprocedure Evaluation - Vinita Engel MD - 02/03/2023 12:42 PM CDT Patient: Elizabeth Oates Procedure Summary Date: 02/03/23 Room / Location: [facility]COPY ROOM 1 / [facility] Anesthesia Start: 1218 Anesthesia Stop: 1242 Procedure: COLON BIOPSY Diagnosis: Family history of colon cancer (Family history of colon cancer [Z80.0]) Providers: Elisa Abbott MD Responsible Provider: Melvin Dudley MD Anesthesia Type: MAC ASA Status: 3 Anesthesia Type: MAC Last vitals BP 128/88 Pulse 84 Temp 36.9 ??C (98.4 ??F) (Skin) Resp 20 SpO2 98% Anesthesia Post Evaluation Patient location during evaluation: PACU Patient participation: complete - patient participated 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 * Anesthesia Preprocedure Evaluation - Vinita Engel MD - 02/03/2023 7:16 AM CDT Images from the original note were not included. Anesthesia Evaluation Elizabeth Oates is a 57 y.o. female Procedure(s): COLONOSCOPY Pre-Op Diagnosis Codes: * Family history of colon cancer [Z80.0] HISTORY Past Medical History Information obtained from: patient and chart. Neurological Neuro/Psych system: negative Cardiovascular Cardiac system: negative Respiratory Pertinent negatives: non-smoker Respiratory system: negative Hepatic / Heme Hepatic/Heme system: negative Gastrointestinal + GERD - on daily therapy. Renal / Renal/ system: negative Musculoskeletal/Pain Musculoskeletal/Pain system: negative Endocrine / Other + Thyroid disease - hypothyroidism Functional Capacity Functional capacity: 4-6 METs Patient Active Problem List Diagnosis Multinodular goiter (nontoxic) Esophageal dysphagia Gastroesophageal reflux disease without esophagitis Family history of colon cancer Past Medical History: Diagnosis Date Chronic diarrhea Depression Past Surgical History: Procedure Laterality Date COLONOSCOPY 01/18/2018 DILATION AND CURETTAGE OF UTERUS THYROID LOBECTOMY OB History No obstetric history on file. No Known Allergies Taking? Last Dose Start Date End Date Provider famotidine (PEPCID) 20 mg tablet () -- 02/18/20 02/17/21 Maryanne Frank MD Take 1 tablet (20 mg total) by mouth 2 (two) times a day Patient not taking: Reported on 06/05/2020 ibuprofen (ADVIL,MOTRIN) 600 mg tablet -- 11/08/20 -- Dhara Garcia PA Take 1 tablet (600 mg total) by mouth every 6 (six) hours as needed for pain levothyroxine (SYNTHROID, LEVOTHROID) 50 mcg tablet -- -- -- ProviderAbdoulaye MD ondansetron (ZOFRAN) 4 mg tablet -- 02/18/20 -- Maryanne Frank MD Take 1 tablet (4 mg total) by mouth every 4 (four) hours as needed for nausea or vomiting raNITIdine (ZANTAC) 150 mg tablet () -- 11/29/18 11/29/19 Elliot Mckeon DO Take 1 tablet (150 mg total) by mouth 2 (two) times a day traMADoL (ULTRAM) 50 mg tablet -- 02/18/20 -- Maryanne Frank MD Take 1-2 tablets (50-100 mg total) by mouth every 6 (six) hours as needed for pain (1 tablet for mild to moderate pain or 2 tablets for severe pain) No current facility-administered medications for this encounter. Current Outpatient Medications: famotidine (PEPCID) 20 mg tablet ibuprofen (ADVIL,MOTRIN) 600 mg tablet levothyroxine (SYNTHROID, LEVOTHROID) 50 mcg tablet ondansetron (ZOFRAN) 4 mg tablet raNITIdine (ZANTAC) 150 mg tablet traMADoL (ULTRAM) 50 mg tablet Social History Tobacco Use Smoking Status Former Smokeless Tobacco Never Alcohol Use: Not on file Substance and Sexual Activity Drug Use Not on file Family History Problem Relation Age of Onset Colon cancer Father There were no vitals filed for this visit. PT: No results found for requested labs within last 30 days. INR: No results found for requested labs within last 30 days. APTT: No results found for requested labs within last 30 days. Hgb A1C: No results found for requested labs within last 30 days. CBC RBC: 01/23/2023: 3.82 M/cumm (L) RDW: No results found for requested labs within last 30 days. MCHC: 01/23/2023: 31.6 g/dL (L) MCH: 01/23/2023: 29.8 pg MCV: 01/23/2023: 94.5 fL Hct: 01/23/2023: 36.1 % Hgb: 01/23/2023: 11.4 g/dL (L) WBC: 01/23/2023: 5.5 K/cumm MPV: 01/23/2023: 9.7 fL Platelets: 01/23/2023: 284 K/cumm RDW CV: 01/23/2023: 13.2 % RDW Sd: 01/23/2023: 45.8 fL BMP Glucose: 01/23/2023: 94 mg/dL Calcium: 01/23/2023: 8.8 mg/dL Sodium: 01/23/2023: 139 mmol/L Potassium: 01/23/2023: 3.3 mmol/L CO2: 01/23/2023: 25 mmol/L Chloride: 01/23/2023: 103 mmol/L BUN: 01/23/2023: 9 mg/dL Creatinine: 01/23/2023: 0.64 mg/dL DOS Physical Exam Medical history, medications, and allergies reviewed. Attestation: I endorse the findings of the anesthesia pre-evaluation assessment dated: 02/03/2023. Airway Exam: Mallampati: II Cervical ROM: FROM TM distance: >4 Cardiovascular Exam: Rate: regular Rhythm: regular Pulmonary Exam: LCTA, bilat EENT Exam: trachea midline Dental Exam: Poor dentition and missing Current state: Patient's current state is cooperative. Anesthesia Plan ASA 3 Planned anesthesia: MAC Induction: Induction: intravenous. Postoperative Plan: No plan for postoperative opioid use. No postoperative mechanical ventilation intended. Patient's planned disposition post procedure is Outpatient. No trial extubation planned. Informed Consent: Discussed plan with attending. Anesthesia [...] and agree to proceed. All questions answered. documented in this encounter Plan of Treatment Not on file documented as of this encounter Visit Diagnoses Not on filedocumented in this encounter Administered Medications Inactive Administered Medications - up to 3 most recent administrations Medication Order MAR Action Action Date Dose Rate Site lidocaine (XYLOCAINE) 20 mg/mL (2 %) preservative free injection intravenous, As needed, Starting on Wed02/03/23 at 1224, Anesthesia Intra-op Given 02/03/2023 12:24 PM CDT 50 mg propofoL (DIPRIVAN) 10 mg/mL IV intravenous, As needed, Starting on Wed02/03/23 at 1224, Anesthesia Intra-op Given 02/03/2023 12:34 PM CDT 40 mg Given 02/03/2023 12:30 PM CDT 40 mg Given 02/03/2023 12:27 PM CDT 40 mg sodium chloride 0.9% infusion 125 mL/hr, intravenous, Continuous, Starting on Wed02/03/23 at 1100, Recovery (GI) New Bag 02/03/2023 12:18 PM CDT 100 mL/hr documented in this encounter Care Teams Touch Up Edger Relationship Specialty Start Date End Date Tomasz Martinez PA [address] [place] [address] PCP - General 12/15/17 documented as of this encounter
--- OUTSIDE RECORDS SUMMARY | 2024-07-21 10:49 | XMS_ITS | Encounter Summary ---
Author Organization [facility] Healthcare Address [address] [place] [address] Care Team Providers Care Corncob Pipe Supervisor Name Role Phone Tomasz Martinez Primary Care Provider [phone] Reason for Visit * Reason Comments H. Pylori Infection Patient is here to d carlos re treatment for Hpylori infection Encounter Details Date Type Department Care Team (Latest Contact Info) Description 06/23/2024 1:15 PM SAND SHOVELER Office Visit [facility] G[facility] at [address] [place] [address] Parvez Leach NP [address] [facility] [address] [place] [address] Helicobacter pylori gastritis (Primary Dx); Family history of colon cancer Social History Tobacco Use Types Packs/Day Years [...] on file 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 SAND SHOVELER Gender Identity Not on file Sexual Orientation Not on file documented as of this encounter Last Filed Vital Signs Vital Sign Reading Time Taken Comments Blood Pressure 138/90 06/23/2024 12:56 PM SAND SHOVELER Pulse 78 06/23/2024 12:56 PM SAND SHOVELER Temperature - - Respiratory Rate - - Oxygen Saturation 96% 06/23/2024 12:56 PM SAND SHOVELER Inhaled Oxygen Concentration - - Weight 111 kg (244 lb 12.8 oz) 06/23/2024 12:56 PM SAND SHOVELER Height 154.9 cm (5' 1 ) 06/23/2024 12:56 PM SAND SHOVELER Body Mass Index 46.25 06/23/2024 12:56 PM SAND SHOVELER documented in this encounter Patient Instructions * Patient Instructions* Parvze Leach NP - 06/23/2024 1:15 PM SAND SHOVELER Your treatment for H pylori will include the following: -One pantoprazole/Protonix twice daily for 14 days. -One 500 mg tetracycline antibiotic 4 times daily for 14 days. -One 500 mg Flagyl/metronidazole antibiotic 3 times daily for 14 days. -Pepto-Bismol two tabs 4 times daily for 14 days. Do not freak out, your poop will likely be black while you are on this regimen because of the Pepto-Bismol. Do not start any of the medications until you have all four of them. When I see you for follow-up in three months we can do a stool or breath test to check for resolution of the H pylori stomach bacteria. If diarrhea becomes a significant problem for you during or after the antibiotics let me know and we will do a stool test to check for C diff because a lot of antibiotic exposure can cause a specifictype of bacteria in the stool called C diff, that if you get, we need to treat. SHOVELER SHOVELER SHOVELER SHOVELER SHOVELER documented in this encounter Ordered Prescriptions Prescription Sig Dispense Quantity Refills Last Filled Start Date End Date pantoprazole DR (PROTONIX) 40 mg EC tablet Take one pill twice daily for 14 days while on H pylori regimen. 28 tablet 06/23/2024 bismuth subsalicylate 262 mg tablet,chewable Take 2 tablets (524 mg total) by mouth 4 (four) times a day for 14 days 112 tablet 06/23/2024 tetracycline (ACHROMYCIN,SUMYCIN ) 500 mg capsule Take 1 capsule (500 mg total) by mouth 4 (four) times a day for 14 days 56 capsule 06/23/2024 4 metroNIDAZOLE (FLAGYL) 500 mg tabletIndications:H elicobacter pylori gastritis Take 1 tablet (500 mg total) by mouth 3 (three) times a day for 14 days 42 tablet 06/23/2024 4 documented in this encounter Progress Notes * Parvez Leach, JEFF - 06/23/2024 1:15 PM CST Images from the original note were not included. PATIENT DEMOGRAPHICS Elizabeth Oates is a 58 y.o. White female. PATIENT'S CARE TEAM Patient Care Team: Tomasz Martinez PA as PCP - General CHIEF COMPLAINT Chief Complaint Patient presents with H. Pylori Infection Patient is here to discuss re treatment for Hpylori infection HPI/ROS New or existing patient visit: Existing. New patient for me. Referring Provider: Tomasz Martinez PA Elizabeth is here today with her significant other for routine GI follow-up to discuss H. pylori treatment. She saw Dr. Abbott 05/18/2024. Weight is up 3 lb since that time. She has a lot of stomach pain, bloating, and intermittently indigestion. She chronically takes famotidine daily with positivebenefit. She had an H pylori breath test in late April that was positive. She was treated with clarithromycin and amoxicillin, but does not remember taking a PPI. At time of recent EGD (06/07) CLOtest was negative for H pylori, but biopsy results were positive and gastric biopsy showed mild chronic active gastritis changes. Normal-appearing esophagus. Esophageal biopsy was normal. Dilated with a 50 Russian Carreon dilator. No longer complaining of significant dysphagia. She chronically intermittently has diarrhea issue, but it has not been overly problematic lately. Fatty/greasy foods are trigger for her so she tries to avoid them. She does still have her gallbladder. Other than recently, she has never required treatment for H pylori in the past. She just completed a course of Keflex for a UTI and that resolve that issue. Denies history of C diff. Denies melena, hematochezia, constipation, or vomiting. Former smoker. No drug use. Rare alcohol use. No routine use of NSAIDs. Last colonoscopy 02/21 was normal. Small internal hemorrhoids noted. 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 Advised to repeat in five years given her father's history of colorectalcancer. Current Outpatient Medications on File Prior to [...] 3 famotidine (PEPCID) 20 mg tablet Take 2 tablets (40 mg total) by mouth daily 60 tablet 11 levothyroxine (SYNTHROID, LEVOTHROID) 50 mcg tablet Take 1 tablet (50 mcg total) by mouth chemical inspector before breakfast ondansetron (ZOFRAN) 4 mg tablet [...] every 6 (six) hours asneeded for pain (Patient not taking: Reported on 06/23/2024) 30 tablet 0 No current facility-administered medications on file prior to visit. PHYSICAL EXAM BP 138/90 (BP Location: Left arm, Patient Position: Sitting) Pulse 78 Ht 154.9 cm (5' 1 ) Wt 111 kg (244 lb 12.8 oz) SpO2 96% BMI 46.25 kg/m?? No LMP recorded. Positive responses are italicized. Constitutional: No acute distress/sickly appearance. Obese. HENT: Normocephalic/atraumatic; mucous membranes moist; oropharynx is clear; no posterior oropharyngeal erythema. Eyes: No scleral icterus. Neck: No thyroid mass/obvious thyromegaly. Trachea midline. No obvious lymphadenopathy. Cardiovascular: Normal rate and regular rhythm; no murmur heard; no leg edema. Pulmonary: Pulmonary effort and breath sounds normal. Abdominal: Bowel sounds active; abdomen is soft/non-distended. No abdominal tenderness; no rebound;no guarding. No obvious hernia identified. Skin: No jaundice or significant pallor. No rash. Neurological: Alert and oriented to person, place, time. Psychiatric: Mood/behavioral normal. TESTS/LABS/PROCEDURES (not all inclusive) 06/07/24- EGD with Dr. Abbott: Impression: - Erythematous mucosa in the prepyloric region of the stomach likely nonspecific. Biopsied. - Normal esophagus. Biopsied. Dilated with 54 Fr. carreon dilator. -Altagracia test negative for H.Pylori, but biopsy positive.Diagnosis: A. Stomach, biopsy: - Antral type gastric mucosa showing mild chronic active gastritis. - Negative for intestinal metaplasia and dysplasia. - Positive for Helicobacter. B. Esophagus, biopsy: - Fragments of benign squamous epithelium. 04/30/24- CT A/P w IV contrast: FINDINGS: LOWER CHEST: Mild scattered subsegmental atelectasis [...] No acute fractures or aggressive osseous lesions. IMPRESSION: 1. Dense column of contrast within short segmental bowel in the right lower quadrant/right hemipelvis, likely the cecum with extensive streak artifact limiting evaluation at that segment . Please note that the cecum was positioned in the right upper quadrant on prior CT on 04/06/2024. These findings could reflect mobile cecum. 2. No CT evidence of bowel obstruction or perforation. 04/28/24- XR Esophagram: FINDINGS: Swallowing function is grossly normal. Mucosal relief views demonstrate no gross abnormality. Minimal dysmotility is noted. No stricture or mass is seen. Tiny sliding hiatal hernia was seen. Visualized portions of the stomach are grossly normal. No reflux was witnessed. At the end of the examination the patient was given a barium pill to swallow which passed freely into the stomach. IMPRESSION: 1. No significant stricture is seen. Tiny sliding hiatal hernia. Follow-up upper endoscopy is recommended for further evaluation. 04/21/24- H. Pylori breat test: POSITIVE. 04/06/24- CT A/P wo contrast: IMPRESSION: Trace asymmetrical left perinephric fat stranding [...] year could be considered to ensure stability. 02/03/23- Colonoscopy with Dr. Abbott: Impression: - The entire examined colon is normal. Biopsied. Melanosis coli noted, but no concern for microscopic colitis on biopsy results. - Internal hemorrhoids (small). -Advised to repeat in 5 years given + FH in her Father for CRC. 02/17/20- CT A/P w IV contrast: IMPRESSION: 1. Mesenteric adenitis 2. Diffuse fatty infiltration of the wall of the colon indicates chronic colitis which could be infectious or inflammatory. 3. Probable uterine fibroid. 01/18/18- Colonoscopy with Dr. Abbott: Impression: - External Hemorrhoids found on perianal exam. - The entire examined colon is normal. - No specimens collected. -Advised to repeat in 5 years. GI ASSESSMENT/PLAN (K29.70, B96.81) Helicobacter pylori gastritis (primary encounter diagnosis) Chronic symptomatology. Newly diagnosed at the end of April. Treated with a course of clarithromycin and amoxicillin based on an ER visit in early May. Does not believe she was treated with aPPI. Recent EGD showed persistent mild H. pylori gastritis. Needs re-treatment. Advised as follows: Your treatment for H pylori will include the following: -One pantoprazole/Protonix twice daily for 14 days. -One 500 mg tetracycline antibiotic 4 times daily for 14 days. -One 500 mg Flagyl/metronidazole antibiotic 3 times daily for 14 days. -Pepto-Bismol two tabs 4 times daily for 14 days. -Do not freak out, your poop will likely be black while you are on this regimen because of the Pepto-Bismol. -Do not start any of the medications until you have all four of them. -When I see you for follow-up in three months we can do a stool or breath test to check for resolution of the H pylori stomach bacteria. -If diarrhea becomes a significant problem for you during or after the antibiotics let me know and we will do a stool test to check for C diff because a lot of antibiotic exposure can cause a specific type of bacteria in the stool called C diff, that if you get, we need to treat. -She was advised to avoid all alcohol use during treatment. -If she needs anything to take for nausea during treatment, she was advised to let me know. (I counseled her that it is okay to wait and start regimen the week after Thanks). -Educational handout provided on H.Pylori. (Z80.0) Family history of colon cancer On a five year surveillance colonoscopy schedule given her family history of colorectal cancer in her father and is due again 02/26. Orders Placed This Encounter bismuth subsalicylate 262 mg tablet,chewable Sig: Take 2 tablets (524 mg total) by mouth 4 (four) times a day for 14 days Dispense: 112 tablet Refill: 0 metroNIDAZOLE (FLAGYL) 500 mg tablet Sig: Take 1 tablet (500 mg total) by mouth 3 (three) times a day for 14 days Dispense: 42 tablet Refill: 0 tetracycline (ACHROMYCIN,SUMYCIN) 500 mg capsule Sig: Take 1 capsule (500 mg total) by mouth 4 (four) times a day for 14 days Dispense: 56 capsule Refill: [address] (PROTONIX) 40 mg EC tablet Sig: Take one pill twice daily for 14 days while on H pylori regimen. Dispense: 28 tablet Refill: 0 Return in about 3 months (around 09/23/2024) for H pylori. Medication(s) and/or immunization(s) uses and side effects briefly discussed. Patient verbalizes understanding of all instructions provided today and agrees with plan. Total time spent on the date of the [id number]-[id number] encounter, including both sogg-iu-vizd time (including staff/provider time spent providing education) and zia-qfpq-nl-face time (pre-charting, reviewing chart, post-charting) was 40 minutes. This note is dictated and transcribed by [employer]. Sterile Technician variances may occur. Despite proofreading, typographical errors may occur. My collaborating physicians are Dr. Elisa Abbott, Dr. Osvaldo Booker, & Dr. Chaka Hart-Gastroenterology. Parvez Leach NP SHOVELER documented in this encounter Plan of Treatment Not on file documented as of this encounter Visit Diagnoses Diagnosis Helicobacter pylori gastritis- Primary Family history of colon cancer Family history of malignant neoplasm of gastrointestinal tract documented in this encounter Care Teams Corncob Pipe Supervisor Relationship Specialty Start Date End Date Tomasz Martinez PA [address] [place] [address] PCP - General 12/15/17 documented as of this encounter
--- OUTSIDE RECORDS SUMMARY | 2024-07-21 10:49 | XMS_ITS | Encounter Summary ---
Author Organization [facility] Healthcare Address [address] [place] [address] Care Team Providers Care Folding Rules Printing Machine Operator Name Role Phone Tomasz Martinez Primary Care Provider [phone] Encounter Details Date Type Department Care Team (Late st Contact Info) Description 06/07/2024 Orders Only [facility] [address] [place] [address] Elisa Abbott MD [address] [place] [address] [id number] Social History Tobacco Use Types Packs/Day Years [...] on file 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 MACHINE BILLER Gender Identity Not on file Sexual Orientation Not on file documented as of this encounter Plan of Treatment Not on file documented as of this encounter Procedures Procedure Name Priority Date/Time Associated Diagnosis Comments SURGICAL PATHOLOGY Routine 06/07/2024 12 :01 PM MACHINE BILLER documented in this encounter Results * Surgical pathology (06/07/2024 12:01 PM MACHINE BILLER) Gastric/Stomach biopsy 06/07/2024 12:01 PM MACHINE BILLER 06/07/2024 12:01 PM MACHINE BILLER Narrative 06/09/2024 8:56 AM MACHINE BILLER EPIC results best viewed via link to PDF [facility] Department of Pathology [address] [place] [id number] Note to Patients: This report may contain [...] Final Report Patient Name: ??ELIZABETH OATES Address: ??[address] [place] [address], ??[place], [place] ??[address] Gender: ??F : ??1965 (Age: 58) Service: ??Gastro Location: ??[facility] Hospital #: ??[id number] Patient Type: ??[facility] Accession # ?[id number] Taken: ??06/07/2024 Received: ??06/07/2024 Accessioned: ??06/07/2024 Reported: [...] submitted in two formalin containers labeled ELIZABETH OATES . A. ??The first container is labeled gastric biopsy . It is 3 fragments of castro tissue between 1 and 2 mm. All in A. B. ??The second container is labeled esophageal biopsy . It is 3 fragments of castro tissue between 1 and 2 mm. All in B. T.A. Anyi Collier, P.Sri./Muna Gage M.D. REPORT IMAGES AND SCANNED DOCUMENTS, IF INCLUDED, ONLY VIEWABLE IN PDF VERSION OF REPORT The performance characteristics of some immunohistochemical stains, fluorescence in-situ hybridization tests and immunophenotyping by flow cytometry cited in this report (if any) were determined by the Surgical Pathology Department at [facility] as part of an ongoing quality management coordinator program and in compliance with federally mandated [...] characteristics determined by the Surgical Pathology Department [facility]. ??It has not been cleared or approved by the U. S. Food and Drug Administration. Note for decalcified specimens: This assay has not been validated on decalcified tissues. Results should be interpreted with caution given the possibility of false negativity on decalcified specimens Elisa Abbott MD LAB PATHOLOGY ORDERABLES F inal Result documented in this encounter Visit Diagnoses Not on filedocumented in this encounter Care Teams Folding Rules Printing Machine Operator Relationship Specialty Start Date End Date Tomasz Martinez PA [address] [place] [address] PCP - General 12/15/17 documented as of this encounter
--- OUTSIDE RECORDS SUMMARY | 2024-07-21 10:49 | XMS_ITS | Encounter Summary ---
Author Organization [facility] Healthcare Address [address] [place] [address] Care Team Providers Care Circuit Designer Name Role Phone Tomasz Martinez Primary Care Provider [phone] Reason for Visit * Auth/Cert (Routine) Specialty Diagnoses / Procedures Referred By Contlainey t Referred To Contact Diagnoses Positive H. pylori test Dyspepsia Positive H. pylori test [A04.8] Dyspepsia [R10.13] Procedures MT ESOPHAGOGASTRODUODENOSCOPY TRANSORAL DIAGNOSTIC ESOPHAGOGASTRODUODENOSCOPY Referral ID Status Reason Start Date Expiration Date Visits Re quested Visits Authorized [id number] 1 1 Encounter Details Date Type Department Care Team (Latest Contact Info) Description 06/07/2024 8:30 AM HOSPITAL NURSING ASSISTANT - 06/07/2024 9:00 AM HOSPITAL NURSING ASSISTANT Surgery [address] [address] Elisa Abbott MD [address] [place] [id number] ESOPHAGOGASTRODUODENOSCOPY BIOPSY Surgery Details Date/Time Status Location OR Service Patient Class Case Class Case Type Trauma Case? 06/07/2024 8:30 AM Posted [facility] END[facility] GI 01 Gastroenterology Outpatient Elective Panel 1 Procedure LRB Anes Op Region Wound Class Comments ESOPHAGOGASTRODUODENOSCOPY BIOPSY N/A Monitor Anesthesia Care BOUGIE DILATION N/A Choice Surgeon Surgeon Role Service Panel Elisa Abbott [...] on file 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 HOSPITAL NURSING ASSISTANT Gender Identity Not on file Sexual Orientation Not on file documented as of this encounter Last Filed Vital Signs Vital Sign Reading Time Taken Comments Blood Pressure 120/88 06/07/2024 8:48 AM HOSPITAL NURSING ASSISTANT Pulse 74 06/07/2024 8:48 AM HOSPITAL NURSING ASSISTANT Temperature 36.9 ??C (98.4 ??F) 06/07/2024 7:25 AM CS T Respiratory Rate 18 06/07/2024 8:48 AM HOSPITAL NURSING ASSISTANT Oxygen Saturation 95% 06/07/2024 8:48 AM HOSPITAL NURSING ASSISTANT Inhaled Oxygen Concentration - - Weight 109.3 kg (241 lb) 06/07/2024 7:25 AM HOSPITAL NURSING ASSISTANT Height 154.9 cm (5' 1 ) 06/07/2024 7:25 AM HOSPITAL NURSING ASSISTANT Body Mass Index 45.54 06/07/2024 7:25 AM HOSPITAL NURSING ASSISTANT documented in this encounter Medications at Time [...] 1 tablet (50 mcg total) by mouth wind tunnel mechanic before breakfast ondansetron (ZOFRAN) 4 mg tablet [...] 1 tablet (50 mcg total) by mouth wind tunnel mechanic before breakfast ondansetron (ZOFRAN) 4 mg tablet [...] Dysphagia GI PLAN/RECOMMENDATIONS: EGD Elisa Abbott MD ITAL NURSING ASSISTANT documented in this encounter Procedure Notes * Elisa Abbott MD - 06/07/2024 7:21 AM CSTAssociated Order(s): EGD [facility] Patient Name: Elizabeth Oates Procedure Date: 06/07/2024 7:21 AM Date of : 1965 Admit Type: Outpatient Age: 58 Gender: Female Attending MD: Elisa Abbott M.D. Room: [facility] END[facility]COPY ROOM 1 Note Status: Finalized Patient [...] passed under direct vision. The Endoscope GIF-H190 [id number] was introduced through the mouth, and advanced [...] 7:21 AM Procedure Code(s): --- Professional --- 11521, Esophagogastroduodenoscopy, flexible, transoral; with biopsy, single or multiple 62452, Dilation of esophagus, by unguided sound or bougie, single or multiple passes Diagnosis Code(s): --- Professional --- K31.89, Other diseases of stomach and duodenum R13.10, Dysphagia, unspecified CPT copyright 2020 [employer]. All rights reserved. The codes documented in this report are preliminary and upon quality systems manager review may be revised to meet current compliance requirements. Recognized by the [employer] for promoting quality in endoscopy ITAL NURSING ASSISTANT documented in this encounter Miscellaneous Notes * Perioperative Nursing Note - Rosario Patel, RN - 06/07/2024 9:[address] Dr. Abbott discharged patient to home with electronic prescription for Famotidine and GERD diet.Patient to return as needed. ITAL NURSING ASSISTANT documented in this encounter Plan of Treatment Scheduled Orders Name Type Priority Associated Diagnoses Order Schedule Surgical pathology Pathology and Cytology Timed Positive H. pylori test Dyspepsia Release Upon Ordering for 1 Occurrences starting 06/07/2024 documented as of this encounter Procedures Procedure Name Priority Date/Time Associated Diagnosis Comments H. PYLORI UREASE SCREEN (SAMPSON TEST) STAT 06/07/2024 8:28 AM HOSPITAL NURSING ASSISTANT BOUGIE DILATION 06/07/2024 8:02 AM HOSPITAL NURSING ASSISTANT Positive H. pylori test Dyspepsia ESOPHAGOGASTRODUODENOSCOPY BIOPSY 06/07/2024 8:02 AM HOSPITAL NURSING ASSISTANT Positive H. pylori test Dyspepsia EGD 06/07/2024 7:21 AM HOSPITAL NURSING ASSISTANT documented in this encounter Results * H. pylori urease screen (SAMPSON test) Tissue (06/07/2024 8:28 AM HOSPITAL NURSING ASSISTANT) H. pylori, rapid (SAMPSON) Negative Negative Tissue 06/07/2024 8:28 AM HOSPITAL NURSING ASSISTANT 06/07/2024 12:00 PM HOSPITAL NURSING ASSISTANT Elisa Abbott MD LAB MICROBIOLOGY - GENERAL ORDERABLES Final Result JENNIFER [facility] 1 [facility] Department [place] [address] * EGD (06/07/2024 7:21 AM HOSPITAL NURSING ASSISTANT) Anatomical Region Laterality Modality Other Narrative Procedure Note Elisa Abbott MD - 06/07/2024 7:21 AM CST [facility] Patient Name: Elizabeth Oates Procedure Date: 06/07/2024 7:21 AM Date of : 1965 Admit Type: Outpatient Age: 58 Gender: Female Attending MD: Elisa Abbott M.D. Room: [facility] ROOM 1 Note Status: Finalized Patient [...] passed under direct vision. The Endoscope GIF-H190 [id number] was introduced through the mouth, and advanced [...] 7:21 AM Procedure Code(s): --- Professional --- 34423, Esophagogastroduodenoscopy, flexible, transoral; with biopsy, single or multiple 55309, Dilation of esophagus, by unguided sound or bougie, single or multiple passes Diagnosis Code(s): --- Professional --- K31.89, Other diseases of stomach and duodenum R13.10, Dysphagia, unspecified CPT copyright 2020 [employer]. All rights reserved. The codes documented in this report are preliminary and upon quality systems manager reviewmay be revised to meet current compliance requirements. Recognized by the [employer] for promoting quality in endoscopy Elisa Abbott MD ENDOSCOPY PROCEDURES Final Result documented in this encounter Visit Diagnoses Diagnosis Positive H. pylori test Dyspepsia Dyspepsia and other specified disorders of function of stomach Positive H. pylori test Dyspepsia Dyspepsia and [...] 0800, Pre-Procedure (GI) Restarted 06/07/2024 8:29 AM HOSPITAL NURSING ASSISTANT New Bag 06/07/2024 8:12 AM HOSPITAL NURSING ASSISTANT 30 mL/hr sodium chloride 0.9% infusion 125 [...] Recently Administered Medications Times are shown in HOSPITAL NURSING ASSISTANT. Continuous Medication Order 06/05/2024 06/06/2024 06/07/2024 sodium [...] 06/07/2024 documented in this encounter Care Teams Circuit Designer Relationship Specialty Start Date End Date Tomasz Martinez PA [address] [place] [address] PCP - General 12/15/17 documented as of this encounter
--- OUTSIDE RECORDS SUMMARY | 2024-07-21 10:49 | XMS_ITS | Encounter Summary ---
Author Organization [facility] Healthcare Address [address] [place] [address] Care Team Providers Care Vocational Education Professional Name Role Phone Tomasz Martinez Primary Care Provider [phone] Reason for Visit * Auth/Cert (Routine) Specialty Diagnoses / Procedures Referred By [place] t Referred To Contact Diagnoses Family history of colon cancer Family history of colon cancer [Z80.0] Procedures WA COLONOSCOPY FLX DX W/COLLJ SPEC WHEN PFRMD COLONOSCOPY Referral ID Status Reason Start Date Expiration Date Visits Re quested Visits Authorized [id number] 1 1 Encounter Details Date Type Department Care Team (Latest Contact Info) Description 02/03/2023 10:04 AM CDT - 02/03/2023 1:27 PM CDT Hospital Encounter [facility] Center [address] [place] [address] Elisa Abbott MD [address] [place] [address] Family history of colon cancer Discharge Disposition: Discharge to home or self care Social History Tobacco Use Types Packs/Day Years Used Date Smoking Tobacco: Former Smokeless Tobacco: Never Comments Unknown Sex and Gender Information Value Date Recorded Sex Assigned at Not on file 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 BREAKFAST ATTENDANT Gender Identity Not on file Sexual Orientation [...] 1 tablet (50 mcg total) by mouth delimer before breakfast ondansetron (ZOFRAN) 4 mg tablet [...] 1 tablet (50 mcg total) by mouth delimer before breakfast 02/02/2023 ondansetron (ZOFRAN) 4 mg [...] - 02/03/2023 10:29 AM CDTAssociated Order(s): [facility] Patient Name: Elizabeth Oates Procedure Date: 02/03/2023 10:29 AM Date of : 1965 Admit Type: Outpatient Age: 57 Gender: Female Attending MD: Elisa Abbott M.D. Room: [facility] ENDOSCOPY ROOM 1 Note Status: Finalized Patient [...] under direct vision. The Pediatric Colonoscope PCF-H190L [id number] was introduced through the anus and advanced [...] 10:29 AM Procedure Code(s): --- Professional --- 53453, Colonoscopy, flexible; with biopsy, single or multiple Diagnosis Code(s): --- Professional --- Z80.0, Family history of malignant neoplasm of digestive organs K64.8, Other hemorrhoids CPT copyright 2020 [employer]. All rights reserved. The codes documented in this report are preliminary and upon novelty chain maker review may be revised to meet current compliance requirements. Recognized by the [employer] for promoting quality [...] Biopsy) 02/03/2023 12:36 PM CDT Narrative PATHOLOGY [facility] - 02/04/2023 10:20 AM CDT EPIC results best viewed via link to PDF [facility] Department of Pathology [address] [place] [address] Note to Patients: This report may contain [...] the details. Final Report Patient Name: ??ELIZABETH OATESHernan Address: ??[address] [place] [address], ??[place], [place] ??[address] Gender: ??F : ??1965 (Age: 57) Service: ??Gastro [facility] #: ??[id number] Patient Type: ??[facility] Accession # ?[id number] Taken: ??02/03/2023 Received: ??02/03/2023 Accessioned: ??02/03/2023 Reported: [...] ??All in one cassette. Javier Collier R.N., P.A./Muna Gage M.D. REPORT IMAGES AND SCANNED DOCUMENTS, IF INCLUDED, ONLY VIEWABLE IN PDF VERSION OF REPORT The performance characteristics of some immunohistochemical stains, fluorescence in-situ hybridization tests and immunophenotyping by flow cytometry cited in this report (if any) were determined by the Surgical Pathology Department at [facility] as part of an ongoing quality control technician program and in compliance with federally mandated [...] characteristics determined by the Surgical Pathology Department [facility]. ??It has not been cleared or approved by the U. S. Food and Drug Administration. Note for decalcified specimens: This assay has not been validated on decalcified tissues. Results should be interpreted with caution given the possibility of false negativity on decalcified specimens us Elisa Abbott MD LAB PATHOLOGY ORDERABLES F inal Result PATHOLOGY [facility] [address] [place] [address] * COLONOSCOPY (02/03/2023 10:29 AM CDT) Anatomical Region Laterality Modality Other Narrative Procedure Note Elisa Abbott MD - 02/03/2023 10:29 AM CDT [facility] Patient Name: Elizabeth Oates Procedure Date: 02/03/2023 10:29 AM Date of : 1965 Admit Type: Outpatient Age: 57 Gender: Female Attending MD: Elisa Abbott M.D. Room: [facility] ENDOSCOPY ROOM 1 Note Status: Finalized Patient [...] under direct vision. The Pediatric Colonoscope PCF-H190L [id number] was introducedthrough the anus and advanced to [...] 10:29 AM Procedure Code(s): --- Professional --- 60318, Colonoscopy, flexible; with biopsy, single or multiple Diagnosis Code(s): --- Professional --- Z80.0, Family history of malignant neoplasm of digestive organs K64.8, Other hemorrhoids CPT copyright 2020 [employer]. All rights reserved. The codes documented in this report are preliminary and upon novelty chain maker reviewmay be revised to meet current compliance requirements. Recognized by the [employer] for promoting quality [...] 02/03/2023 documented in this encounter Care Teams Vocational Education Professional Relationship Specialty Start Date End Date Tomasz Martinez PA [address] [place] [address] PCP - General 12/15/17 documented as of this encounter
--- OUTSIDE RECORDS SUMMARY | 2024-07-21 10:49 | XMS_ITS | Encounter Summary ---
Author Organization [facility] Healthcare Address [address] [place] [address] Care Team Providers Care Container Finishing Inspector Name Role Phone Tomasz Martinez Primary Care Provider [phone] Reason for Visit * Reason Comments Shortness of Breath Encounter Details Date Type Department Care Team (Late st Contact Info) Description 01/23/2023 8:11 PM CDT - 01/23/2023 10:42 PM CDT Emergency [facility] Emergency Department [address] [place] [address] Murali Gonzalez MD [address] [place] [address] Exposure to chemical inhalation (Primary Dx) Discharge Disposition: Discharge to home or self care Social History Tobacco Use Types Packs/Day Years Used Date Smoking Tobacco: Former Smokeless Tobacco: Never Comments Unknown Sex and Gender Information Value Date Recorded Sex Assigned at Not on file 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 Gender Identity Not on file Sexual Orientation Not on file documented as of this encounter Last Filed Vital Signs Vital Sign Reading Time Taken Comments Blood Pressure 135/88 01/23/2023 10:30 PM CDT Pulse 70 01/23/2023 10:30 PM CDT Temperature 37.5 ??C (99.5 ??F) 01/23/2023 6:53 PM CD T Respiratory Rate 17 01/23/2023 6:53 PM CDT Oxygen Saturation 99% 01/23/2023 10:30 PM CDT Inhaled Oxygen Concentration - - Weight 114.3 kg (252 lb) 01/23/2023 6:53 PM CDT Height 154.9 cm (5' 1 ) 01/23/2023 6:53 PM CDT Body Mass Index 47.61 01/23/2023 6:53 PM CDT documented in this encounter Discharge Instructions * Attachments The following attachments cannot be sent through Care Everywhere. * Inhalation, Chemical (Northern Irish) documented in this encounter Medications at Time [...] 1 tablet (50 mcg total) by mouth planer off bearer before breakfast ondansetron (ZOFRAN) 4 mg tablet Take 1 tablet (4 mg total) by mouth every 4 (four) hours as needed for nausea or vomiting 15 tablet 02/18/2020 famotidine (PEPCID) 20 mg tablet Take 1 tablet (20 mg total) by mouth 2 (two) times a day 30 tablet 02/18/2020 3 raNITIdine (ZANTAC) 150 mg tablet Take 1 tablet (150 mg total) by mouth 2 (two) times a day 60 tablet 2 11/29/2018 3 traMADoL (ULTRAM) 50 mg tablet Take 1-2 tablets (50-100 mg total) by mouth every 6 (six) hours as needed for pain (1 tablet for mild to moderate pain or 2 tablets for severe pain) 20 tablet 02/18/2020 3 documented as of this encounter Discharge Disposition Disposition Code Departure Means Destination Comment s Discharge to home or self care documented in this encounter ED Notes * Murali Gonzalez MD - 01/23/2023 8:14 PM CDT HPI Chief Complaint Patient presents with Shortness of Breath Patient is a 57-year-old female, nonsmoker, no history of lung disease, presents emergency room complaining of shortness of breath since yesterday-when she fumigated her house for bugs. No fevers or chills. No chest pain. No nausea vomiting or diarrhea. No abdominal pain or urinary symptoms. No changes in voice. No aggravating or alleviating factors. There is no other complaints of further reviewof symptoms negative Patient History: Patient Active Problem List Diagnosis Date Noted Family history of colon cancer 01/07/2023 Multinodular goiter (nontoxic) 11/30/2018 Esophageal dysphagia 11/30/2018 Gastroesophageal reflux disease without esophagitis 11/30/2018 Past Medical History: Diagnosis Date Chronic diarrhea Depression Past Surgical History: Procedure Laterality Date DILATION AND CURETTAGE OF UTERUS THYROID LOBECTOMY Family History Problem Relation Age of Onset Colon cancer Father Social History Tobacco Use Smoking status: Former Smokeless tobacco: Never Vaping Use Vaping Use: Never used Substance and Sexual Activity Alcohol use: None Drug use: None Sexual activity: None Social History Social History Narrative Not on file Review of Systems Review of Systems All other systems reviewed and are negative. Physical Exam ED Triage Vitals [01/23/23 1853] Temp Pulse Resp BP SpO2 37.5 ??C (99.5 ??F) 87 17 150/94 100 % Temp src Heart Rate Source Patient Position BP Location FiO2 (%) Temporal -- -- -- -- Height Height Method Weight Weight Method 1.549 m (5' 1 ) Stated 114.3 kg (252 lb) Stated Physical Exam Vitals and nursing note reviewed. Constitutional: General: She is not in acute distress. Appearance: She is not ill-appearing, toxic-appearing or diaphoretic. HENT: Head: Normocephalic and atraumatic. Left Ear: Tympanic membrane normal. Mouth/Throat: Mouth: Mucous membranes are moist. Pharynx: Oropharynx is clear. Eyes: Extraocular Movements: Extraocular movements intact. Conjunctiva/sclera: Conjunctivae normal. Cardiovascular: Rate and Rhythm: Normal rate and regular rhythm. Pulses: Normal pulses. Pulmonary: Effort: Pulmonary effort is normal. No respiratory distress. Breath sounds: Normal breath sounds. No stridor. No wheezing. Abdominal: General: There is no distension. Palpations: Abdomen is soft. Tenderness: There is no abdominal tenderness. Musculoskeletal: General: Normal range of motion. Cervical back: Normal range of motion. No rigidity. Skin: General: Skin is warm and dry. Capillary Refill: Capillary refill takes less than 2 seconds. Neurological: Mental Status: She is alert and oriented to person, place, and time. Gait: Gait normal. Psychiatric: Thought Content: Thought content normal. MDM Medical Decision Making 57-year-old female with no history of lung disease, nonsmoker, presents emergency room complaining of shortness of breath since yesterday after she fumigated her house with bug spray. No fevers. No chest pain. No other symptoms. Differential: Inhalation injury, shortness of breath, pneumonia, other Amount and/or Complexity of Data Reviewed Labs: ordered. Decision-making details documented in ED Course. Radiology: ordered. Decision-making details documented in ED Course. ED Course as of 01/23/232207 Time: 01/24 2204 Comment: Patient lying examination room in no respiratory distress, room air O2 saturation 100%, respiratory rate 18 and unlabored, aware of test results and the need for follow-up By: Murali Gonzalez MD Final diagnoses: Exposure to chemical inhalation Murali Gonzalez MD 01/23/232207 * Melanie Lam RN - 01/23/2023 6:52 PM CDT Pt states she has bed bug if issues and sprayed her house. Pt states that now it feels like her wind pipe is closing up. Pt states it feels like theres something in her throat. Pt states that it is also painful. documented in this encounter Miscellaneous Notes * ED Triage Provider Note - Elmer Renteria NP - 01/23/2023 7:01 PM CDT 57 year old female states she has bedbug in her house and her bed. States she has been spraying chemicals to kill the bugs and is now complaining of feeling like her windpipe is closing with pain and tightness. Has a history of a goiter, dysphagia, and GERD. documented in this encounter Plan of Treatment Not on file documented as of this encounter Procedures Procedure Name Priority Date/Time Associated Diagnosis Comments EGFR STAT 01/23/2023 8:51 PM CDT DIFFERENTIAL AUTO STAT 01/23/2023 8:5 1 PM CDT CBC WITH AUTO DIFFERENTIAL STAT 01/23/2023 8:51 PM CDT COMPREHENSIVE METABOLIC PANEL STAT 01/23/2023 8:51 PM CDT XR CHEST PA LATERAL 2 VIEWS ED 01/23/2023 8:26 PM CDT documented in this encounter Results * eGFR (01/23/2023 8:51 PM CDT) eGFR 103 mL/min/1. 73 m2 [facility] Comment: Interpretive Data Reference Interval Normal ?>/= 90 mL/min/1.73m2 Mildly decreased* ? 60 - 89 mL/min/1.73m2 Mildly to moderately decreased ?45 - 59 mL/min/1.73m2 Moderately to severely decreased ??30 - 44 mL/min/1.73m2 Severely decreased ?15 - 29 mL/min/1.73m2 Kidney Failure ?< 15 ??mL/min/1.73m2 *Relative to young adult level Estimated glomerular filtration rate is determined by the 2020 CKD-EPI equation recommended by the National Kidney Foundation (A Unifying Approach to GFR Estimation: Recommendations of the NKF-ASK Task Force on Reassessing the Inclusion of Race in Diagnosing Kidney Disease, JASN 2020). The CKD-EPI equation should not be used for patients with unstable renal function and has not been validated in children and those over 70. Current interpretive data was last reviewed 2021. Blood 01/23/2023 8:51 PM CDT 01/23/2023 8:56 PM CDT us Murali Gonzalez MD LAB BLOOD ORDERABLES Final Re sult [facility] ([place]) [address] [facility] [place] [address] * Differential, auto (01/23/2023 8:51 PM CDT) Neutrophil abs 3.4 1.7 - 6.5 K/cumm [facility] ([place]) Imm gran abs 0.0 0.0 - 0.1 K/cumm [facility] ([place]) Lymphocyte abs 1.3 0.8 - 3.3 K/cumm [facility] ([place]) Monocyte abs 0.3 0.2 - 0.8 K/cumm [facility] ([place]) Eosinophil abs 0.3 0.0 - 0.5 K/cumm [facility] ([place]) Basophil abs 0.1 0.0 - 0.1 K/cumm [facility] ([place]) Neutrophil pct 62.7 % [facility] ([place]) Comment: Interpretive Data Percent cell count reference ranges are not reported, since discordance with absolute values may lead to misinterpretation of CBC data. Current Interpretive Data was last revised on 2017. Imm gran pct 0.2 % [facility] ([place]) Comment: Interpretive Data Percent cell count reference ranges are not reported, since discordance with absolute values may lead to misinterpretation of CBC data. Current Interpretive Data was last revised on 2017. Lymphocyte pct 24.4 % [facility] ([place]) Comment: Interpretive Data Percent cell count reference ranges are not reported, since discordance with absolute values may lead to misinterpretation of CBC data. Current Interpretive Data was last revised on 2017. Monocyte pct 5.8 % [facility] ([place]) Comment: Interpretive Data Percent cell count reference ranges are not reported, since discordance with absolute values may lead to misinterpretation of CBC data. Current Interpretive Data was last revised on 2017. Eosinophil pct 6.0 % [facility] ([place]) Comment: Interpretive Data Percent cell count reference ranges are not reported, since discordance with absolute values may lead to misinterpretation of CBC data. Current Interpretive Data was last revised on 2017. Basophil pct 0.9 % [facility] ([place]) Comment: Interpretive Data Percent cell count reference ranges are not reported, since discordance with absolute values may lead to misinterpretation of CBC data. Current Interpretive Data was last revised on 2017. Blood 01/23/2023 8:51 PM CDT 01/23/2023 8:56 PM CDT us Murali Gonzalez MD LAB BLOOD ORDERABLES Final Re sult [facility] ([place]) [address] [facility] [place] [address] * Comprehensive metabolic panel (01/23/2023 8:51 PM CDT) Sodium 139 135 - 145 mmol/L [facility] ([place]) Potassium, pl 3.3 3.3 - 4.9 mmol/L [facility] ([place]) Chloride 103 97 - 110 mmol/L [facility] ([place] CO2 25 22 - 32 mmol/L [facility] ([place] Anion gap 11 2 - 15 mmol/L [facility] ([place]) BUN 9 6 - 25 mg/dL [facility] ([place]) Creatinine 0.64 0.60 - 1.10 mg/dL [facility] ([place]) Glucose 94 70 - 199 mg/dL [facility] ([place]) Comment: Interpretive Data Fasting glucose >/= 126 mg/dl is diagnostic for diabetes. ?? Fasting is defined as no caloric intake for at least 8 hours. Fasting glucose between 100 mg/dl to 125 mg/dl is diagnostic of prediabetes. In a patient with classic symptoms of hyperglycemia or hyperglycemic crisis, a random glucose >/= 200 mg/dl is diagnostic for diabetes. In the absence of unequivocal hyperglycemia, results should be confirmed by repeat testing. The classification and Diagnosis of Diabetes Diabetes Care 202; 46: S19-S40. Current interpretive data was last revised 2022. Calcium 8.8 8.5 - 10.3 mg/dL [facility] ([place]) Bilirubin, total 0.4 0.1 - 1.2 mg/dL [facility] ([place]) Protein, pl 7.3 6.5 - 8.5 g/dL [facility] ([place]) Albumin 4.1 3.5 - 5.0 g/dL [facility] ([place]) Alk phos 86 40 - 130 Units/L [facility] ([place]) ALT 17 7 - 45 Units/L [facility] ([place]) AST 20 10 - 45 Units/L [facility] ([place]) Blood 01/23/2023 8:51 PM CDT 01/23/2023 8:56 PM CDT Murali Gonzalez MD LAB BLOOD ORDERABLES Final Re sult [facility] ([place]) [address] [facility] [place] [address] * (ABNORMAL) CBC with auto differential (01/23/2023 8:51 PM CDT) WBC 5.5 3.8 - 9.9 K/cumm [facility] ([place]) Hgb 11.4(L) 11.9 - 15.5 g/dL [facility] ([place]) Hct 36.1 35.6 - 45.5 % [facility] ([place]) Plt 284 150 - 400 K/cumm [facility] ([place]) MPV 9.7 9.1 - 12.3 fL [facility] ([place]) RBC 3.82(L) 3.90 - 5.20 M/cumm [facility] ([place]) MCV 94.5 81.3 - 96.4 fL [facility] ([place]) MCH 29.8 27.1 - 33.3 pg [facility] ([place]) MCHC 31.6(L) 32.3 - 35.7 g/dL [facility]) RDW CV 13.2 11.1 - 14.9 % [facility] ([place]) RDW SD 45.8 35.7 - 48.1 fL [facility] ([place]) NRBC abs 0.00 0.00 - 0.01 K/cumm [facility] ([place]) Blood 01/23/2023 8:51 PM CDT 01/23/2023 8:56 PM CDT us Murali Gonzalez MD LAB BLOOD ORDERABLES Final Re sult [facility] ([place] [address] [facility] [place] [address] * XR Chest Pa Lateral 2 Vw (01/23/2023 8:26 PM CDT) Anatomical Region Laterality Modality Body, Chest N/A Computed Radiogr aphy 01/23/2023 9:30 PM CDT Narrative 01/23/2023 9:33 PM CDT EXAM DESCRIPTION: XR CHEST PA LATERAL 2 VIEWS REASON FOR STUDY: Shortness of breath after few min getting house for bugs ?? Patient is a 57-year-old female, nonsmoker, no history of lung disease, presents emergency room complaining of shortness of breath since yesterday-when she fumigated her house for bugs ? TECHNIQUE: AP and lateral ??radiographic view(s) of the chest. COMPARISON: Comparison 10/07/2016. FINDINGS: LUNGS: ??No focal opacity, pleural effusion, or pneumothorax. ?? HEART/MEDIASTINUM: ??Cardiac silhouette is stable with mild cardiac enlargement and prominent left ventricle.. ??Mediastinal and hilar contours appear normal. LINES/TUBES: ??None. BONES: ??No acute osseous abnormality. IMPRESSION: No acute cardiopulmonary abnormality. ??If clinically indicated, chest CT without contrast may be considered for further evaluation. THIS IS AN ELECTRONICALLY VERIFIED FINAL REPORT 01/23/2023 9:33 PM - Electronically signed by ??Ramona Turner M.D. LC: [place] D: ??01/23/2023 9:33 PM T: ??01/23/2023 9:33 PM Report ID: [id number] Reading Location: ??[id number] Procedure Note Penny Turner MD - 01/23/2023 EXAM DESCRIPTION: XR CHEST PA LATERAL 2 VIEWS REASON FOR STUDY: Shortness of breath after few min getting house for bugs Patient is a 57-year-old female, nonsmoker, no history of lung disease, presents emergency room complaining of shortness of breath since yesterday-when she fumigated her house for bugs TECHNIQUE: AP and lateral radiographic view(s) of the chest. COMPARISON: Comparison 10/07/2016. FINDINGS: LUNGS: No focal opacity, pleural effusion, or pneumothorax. HEART/MEDIASTINUM: Cardiac silhouette is stable with mild cardiacenlargement and prominent left ventricle.. Mediastinal and hilar contours appearnormal. LINES/TUBES: None. BONES: No acute osseous abnormality. IMPRESSION: No acute cardiopulmonary abnormality. If clinically indicated, chest CT without contrast may be considered for further evaluation. THIS IS AN ELECTRONICALLY VERIFIED FINAL REPORT 01/23/2023 9:33 PM - Electronically signed by Ramona Turner M.D. LC: [place] Report ID: [id number] Reading Location: [id number] us Murali Gonzalez MD IMG XR PROCEDURES Final Resul t documented in this encounter Visit Diagnoses Diagnosis Exposure to chemical inhalation- Primary documented in this encounter Care Teams Container Finishing Inspector Relationship Specialty Start Date End Date Tomasz Martinez PA [address] [place] [address] PCP - General 12/15/17 documented as of this encounter
--- OUTSIDE RECORDS SUMMARY | 2024-07-21 10:49 | XMS_ITS | Encounter Summary ---
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 Abbott just had a cancellation on 06/07/24. Askedpt if she would like to move her EGD to that day since she was supposed to go out of town on 06/01 but was going to have to cancel since her procedure was moved to the afternoon. Pt was agreeable to moving to 06/07/24. Instructions and appointment change information were emailed to [email or web address]. Case was updated on the snapboard. * Telephone Encounter - Shania Landis MA - 05/19/2024 11:29 AM CDT Patient called into the office in regards to her procedure time on 06/01/24 being scheduled to a different time. Patient was originally scheduled for 06/01/24 at 9:[address] Abbott. Patients new time has been moved down to 1:30 pm due to anesthesia not being available that morning. PSR Orly will change it on the snap board. documented in this encounter Plan of Treatment Not on file documented as of this encounter Visit Diagnoses Not on filedocumented in this encounter Care Teams Vba Developer Relationship Specialty Start Date End Date Tomasz Martinez PA [address] [place] [address] PCP - General 12/15/17 documented as of this encounter
--- OUTSIDE RECORDS SUMMARY | 2024-07-21 10:49 | XMS_ITS | Encounter Summary ---
Author Organization [facility] Healthcare Address [address] [place] [address] Care Team Providers Care Machine Set Up Technician Name Role Phone Tomasz Martinez Primary Care Provider [phone] Reason for Visit * Reason Comments Foot Pain left foot pain Encounter Details Date Type Department Care Team (Late st Contact Info) Description 11/08/2020 10:21 AM CDT - 11/08/2020 11:54 AM CDT Emergency [facility] Emergency Department [address] [place] [address] [place] [address] [facility] [address] [place] [address] Left foot pain (Primary Dx) Discharge Disposition: Discharge to home or self care Social History Tobacco Use Types Packs/Day Years Used Date Smoking Tobacco: Former Smokeless Tobacco: Never Comments Unknown Sex and Gender Information Value Date Recorded Sex Assigned at Not on file 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 Gender Identity Not on file Sexual Orientation Not on file documented as of this encounter Last Filed Vital Signs Vital Sign Reading Time Taken Comments Blood Pressure 143/97 11/08/2020 10:19 AM CDT Pulse 62 11/08/2020 10:19 AM CDT Temperature 36.8 ??C (98.2 ??F) 11/08/2020 10:19 AM C DT Respiratory Rate 16 11/08/2020 10:19 AM CDT Oxygen Saturation 97% 11/08/2020 10:19 AM CDT Inhaled Oxygen Concentration - - Weight 113.4 kg (250 lb) 11/08/2020 10:19 AM CDT Height 154.9 cm (5' 1 ) 11/08/2020 10:19 AM CDT Body Mass Index 47.24 11/08/2020 10:19 AM CDT documented in this encounter Discharge Diagnoses Diagnosis Pain in left foot - PAIN IN LEFT FOOT Pain in soft tissues of limb Personal history of nicotine dependence - PERSONAL HISTORY OF NICOTINE DEPENDENCE documented in this encounter Discharge Instructions * Attachments The following attachments cannot be sent through Care Everywhere. * Muscle Strain, Extremity (Tongan) * RICE (Tongan) documented in this encounter Medications at Time of Discharge ibuprofen (ADVIL,MOTRIN) 600 mg tabletIndication s:Anti-inflammat ory,Pain Take 1 tablet (600 mg total) by mouth every 6 (six) hours as needed for pain 30 tablet 11/08/2020 levothyroxine (SYNTHROID, LEVOTHROID) 50 mcg tablet Take 1 tablet (50 mcg total) by mouth director of early childhood before breakfast ondansetron (ZOFRAN) 4 mg tablet [...] 02/18/2020 3 documented as of this encounter Ordered Prescriptions Prescription Sig Dispense Quantity Refills Last Filled Start Date End Date ibuprofen (ADVIL,MOTRIN) 600 mg tabletIndications:Jorge Desai in Take 1 tablet (600 mg total) by mouth every 6 (six) hours as needed for pain 30 tablet 11/08/2020 documented in this encounter Discharge Disposition Disposition Code Departure Means Destination Discharge to home or self care documented in this encounter ED Notes * Dhara Garcia PA - 11/08/2020 10:47 AM CDT Images from the original note were not included. HPI Chief Complaint Patient presents with ??? Foot Pain left foot pain HPI 55 yo female presents to the ED with left foot pain that started 2 weeks ago, progressively worsening. Pain is worse with movement and weight bearing. She denies trauma or injury. She denies twistingher left foot. Patient reports she was seen at [facility] 1 week ago, where she had an X-ray of the left foot with negative findings. 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 Patient denies fall, injury, chills, fever, CP, SOB, abd pain, N/V/D, hematuria, dysuria, urgency, frequency, numbness, weakness, leg swelling, or any other complaints at this time. XR ANKLE 3 OR MORE VIEWS LEFT (Final result) Result time 10/16/20 15:32:50 Final result by Daniela Olmedo MD (10/16/20 15:32:50) Impression: IMPRESSION: Osteopenia. No acute fracture or malalignment. Patient History: Patient Active Problem List Diagnosis Date Noted ??? Multinodular goiter (nontoxic) 11/30/2018 ??? Esophageal dysphagia 11/30/2018 ??? Gastroesophageal reflux disease without esophagitis 11/30/2018 Past Medical History: Diagnosis Date ??? Chronic diarrhea ??? Depression Past Surgical History: Procedure Laterality Date ??? DILATION AND CURETTAGE OF UTERUS ??? THYROID LOBECTOMY Family History Problem Relation Age of Onset ??? Colon cancer Father Social History Tobacco Use ??? Smoking status: Former Smoker ??? Smokeless tobacco: Never Used Substance Use Topics ??? Alcohol use: Not on file ??? Drug use: Not on file Social History Social History Narrative ??? Not on file Review of Systems Review of Systems Constitutional: Negative for chills and fever. HENT: Negative for ear pain and sore throat. Eyes: Negative for pain and visual disturbance. Respiratory: Negative for cough and shortness of breath. Cardiovascular: Negative for chest pain and palpitations. Gastrointestinal: Negative for abdominal pain and vomiting. Genitourinary: Negative for dysuria and hematuria. Musculoskeletal: Negative for arthralgias and back pain. + left foot pain Skin: Negative for color change and rash. Neurological: Negative for seizures and syncope. All other systems reviewed and are negative. Physical Exam ED Triage Vitals [11/08/20 1019] Temp Pulse Resp BP SpO2 36.8 ??C (98.2 ??F) 62 16 143/97 97 % Temp src Heart Rate Source Patient Position BP Location FiO2 (%) -- -- -- -- -- Physical Exam Vitals and nursing note reviewed. Constitutional: General: She is not in acute distress. Appearance: She is well-developed. HENT: Head: Normocephalic and atraumatic. Eyes: Conjunctiva/sclera: Conjunctivae normal. Cardiovascular: Rate and Rhythm: Normal rate and regular rhythm. Heart sounds: Normal heart sounds. No murmur. Pulmonary: Effort: Pulmonary effort is normal. No respiratory distress. Breath sounds: Normal breath sounds. Abdominal: General: Bowel sounds are normal. There is no distension. Palpations: Abdomen is soft. Tenderness: There is no abdominal tenderness. There is no guarding. Musculoskeletal: Cervical back: Neck supple. Legs: Comments: 5/5 muscle strength with hip abduction, adduction, flexion, extension 5/5 strength with knee flexion, extension 5/5 muscle strength in ankle dorsiflexion, plantarflexion Sensation is intact Skin: General: Skin is warm and dry. Neurological: Mental Status: She is alert and oriented to person, place, and time. Procedure splinting A postop shoe was placed on the left foot Applied by nurse The patient was re-evaluated post application Neuro-vascular exam was unchanged after postop shoe placed MDM MDM Patient is a 55 years old female who presents to the ED for left foot pain that started 2 weeks ago. No trauma or injury. Patient was treated with Toradol and lidocaine patch here in ED with some improvement of her Sx. Patient is non - toxic appearing and in no acute distress. X-ray from 10/16/20 ofleft foot shows no acute findings. Patient will be provided with Rx for Ibuprofen. Patient discharged in stable condition. Patient told to return to the ED if Sx worsen or if any new Sx occur. Patient understands and agrees with plan to discharge. 10:55 AM Patient re-evaluated. Patient is feeling better. Instructed to follow up with paint crew supervisor and PCP. Patient understands and agrees with discharge instructions. All questions were answered. Final diagnoses: Left foot pain Dhara Garcia PA 11/08/20 1803 Cosigned by Sin Pool MD at 11/12/2020 12:34 PM CDT * Radha Reinoso RN - 11/08/2020 10:20 AM CDT PT has been having left foot pain for 2 weeks. documented in this encounter Plan of Treatment Not on file documented as of this encounter Visit Diagnoses Diagnosis Left foot pain- Primary Pain in soft tissues of limb documented in this encounter Administered Medications Inactive Administered Medications - up to 3 most recent administrations Medication Order MAR Action Action Date Dose Rate Site ketorolac (TORADOL) injection 30 mg 30 mg, intramuscular, Once, On Wed11/08/20 at 1048, For 1 dose, For Adult IV push, administer over 15 seconds Given 11/08/2020 11:27 AM CDT 30 mg Right Dorsogluteal/Bu ttock lidocaine (LIDODERM) 5 % patch 1 patch 1 patch, transdermal, Administer over 12 Hours, Daily, First dose on Wed11/08/20 at 1049, Do not cover the holes on the top side of the patch., Apply to affected area: foot, Laterality: Left Medication Applied 11/08/2020 11:23 AM CDT 1 patch Other (Comment) documented in this encounter Discontinued Medications Medication Sig Discontinue Reason Start Date End Da te ibuprofen (ADVIL,MOTRIN) 200 mg tab/cap Take by mouth every 6 (six) hours as needed for pain. 11/08/2020 documented as of this encounter Active and Recently Administered Medications Times are shown in CDT. Scheduled Medication Order 11/06/2020 11/07/2020 11/08/2020 ketorolac (TORADOL) injection 30 mg (COMPLETED) 30 mg, intramuscular, Once, On Wed11/08/20 at 1048, For 1 dose, For Adult IV push, administer over 15 seconds 1127 (Given - Provid er: Rosa Mattson, RN) lidocaine (LIDODERM) 5 % patch 1 patch 1 patch, transdermal, Administer over 12 Hours, Daily, First dose on Wed11/08/20 at 1049, Do not cover the holes on the top side of the patch., Apply to affected area: foot, Laterality: Left 1123 (Medication Nidia lied - Provider: Rosa Mattson, RN - Comment: Left foot)1154 (Due: Medication Removed - Provider: Automatic Discharge Provider - Comment: Time automatically adjusted from order being discontinued) documented in this encounter Orders Medications Ordered That Travis ht Not Have Been Administered Count Last Ordered Date First Ordered Date ketorolac (TORADOL) injection 30 mg 1 11/08 Nursing Count Last Ordered Date First Orde red Date ED NURSING ORDER 1 11/08/2020 documented in this encounter Care Teams Machine Set Up Technician Relationship Specialty Start Date End Date Tomasz Martinez PA [address] [place] [address] PCP - General 12/15/17 documented as of this encounter
--- OUTSIDE RECORDS SUMMARY | 2024-07-21 10:49 | XMS_ITS | Encounter Summary ---
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 Pt became very upset and said it has to be done in the morning because she is going out of town. Apologized to patient but explained that we cannot do the procedure until anesthesia is available so it's not an option to do the procedure in the morning. Pt insisted on talking to the MA who checked her out yesterday because the MA knows her issues. Explained that the MA did work her in on 06/01, per Dr. Karadaghy, but we did not know until today that there would not be anesthesia coverage in the morning. Patient was very frantic and wanted worked in sooner. Let pt know I could send Dr. Abbott a message to see if he can work her in somewhere else, but that I could not guarantee it would be sooner than 06/01. Pt continuously insisted on speaking with the MA about the appointment, so the pt was placed on hold while it was verified that MA was ableto take the call. By the time the call was to be transferred, pt hung up the phone. LLUVIA called and le ft for pt to return her call to discuss the reschedule. * Telephone Encounter - Shania Landis MA - 05/19/2024 11:00 AM CDT I called the patient and left her a voicemail in regards to being notified of anesthesia not being in the morning of her scheduled procedure on 06/01/[address] Abbott. Let the patient know via voicemail that we will have to put her appointment down to a later time or reschedule to a different date. documented in this encounter Plan of Treatment Not on file documented as of this encounter Visit Diagnoses Not on filedocumented in this encounter Care Teams Staple Fiber Washer Relationship Specialty Start Date End Date Tomasz Martinez PA [address] [place] [address] PCP - General 12/15/17 documented as of this encounter
--- OUTSIDE RECORDS SUMMARY | 2024-07-21 10:49 | XMS_ITS | Encounter Summary ---
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 Abbott on 06/01/24 at 9:30 AM. Last colonoscopy: n/a Family history colon cancer (if yes, relationship to pt): n/a Personal history colon polyps or colon cancer: n/a Pt on blood thinner (if yes, list medication and reason for taking): no Has pt had recent stent placement within the last year: n/a Pt have pacemaker/defibrillator: n/a Pt diabetic (if yes, insulin or oral meds): no Pt takes injections for weight loss: n/a Pt have kidney disease or on dialysis: n/a Pt on iron: n/a Hx of Constipation: n/a Mechanical Heart valve: n/a Instructed pt to call with any medical changes and/or medications/insurance. documented in this encounter Plan of Treatment Not on file documented as of this encounter Visit Diagnoses Diagnosis Positive H. pylori test- Primary Dyspepsia Dyspepsia and other specified disorders of function of stomach documented in this encounter Orders Case Request Count Last Ordered Date First Orde red Date CASE REQUEST GI 1 05/18/2024 documented in this encounter Care Teams Substitute School Nurse Relationship Specialty Start Date End Date Tomasz Martinez PA [address] [place] [address] PCP - General 12/15/17 documented as of this encounter
--- OUTSIDE RECORDS SUMMARY | 2024-07-21 10:49 | XMS_ITS | Referral Summary ---
Author Organization [facility] Address [address] [place] [address] Care Team Providers Care Rural Service Engineer Name Role Phone Tomasz Martinez Primary Care Provider [phone] Encounters Date Type Department Care Team Description 4 1:15 PM MONTESSORI LEAD TEACHER Office Visit [facility] Gastroenterology at [address] [place] [phone] Parvez Leach NP Helicobacter pylori gastritis (Primary Dx); Family history of colon cancer 4 Telephone [facility] Gastroenterology at [address] [place] [address] Orly Husain Pathology Results 4 Orders Only [address] [address] Elisa Abbott MD 4 8:12 AM MONTESSORI LEAD TEACHER Anesthesia Event [address] [address] Dillon Alva MD 4 8:30 AM MONTESSORI LEAD TEACHER - 4 9:00 AM MONTESSORI LEAD TEACHER Surgery [address] [address] Elisa Abbott MD ESOPHAGOGASTRODUODENOSCOPY BIOPSY 4 7:10 AM MONTESSORI LEAD TEACHER - 4 9:23 AM MONTESSORI LEAD TEACHER Hospital Encounter [address] [address] Elisa Abbott MD Positive H. pylori test; Dyspepsia Discharge Disposition: Discharge to home or self care 4 Telephone [facility] Gastroenterology at [address] [place] [address] Shania Landis MA 4 Telephone [facility] Gastroenterology at [address] [address] Shania Landis MA 4 Telephone [facility] Gastroenterology at [address] [address] Shania Landis MA 4 9:30 AM CDT Office Visit [facility] Gastroenterology at [address] [phone] Elisa Abbott MD Dyspepsia (Primary Dx); Esophageal dysphagia; Functional diarrhea from Last 3 Months Allergies No known active allergies Medications levothyroxine (SYNTHROID, LEVOTHROID) 50 mcg tablet Take 1 tablet (50 mcg total) by mouth pressure vessel inspector before breakfast Active ondansetron (ZOFRAN) 4 mg [...] on H pylori regimen. 28 tablet 06/23/20 Active metroNIDAZOLE (FLAGYL) 500 mg tabletIndications :Helicobacter [...] on the importance of compliance with medications. Immunizations Name Administration Dates Next Due Influenza, Quadrivalent, Split, Intramuscular Influenza, Quadrivalent, Spl it, Preservative Free, Intramuscular 06/30/2022 Social History Tobacco Use Types Packs/Day Years [...] on file 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 MONTESSORI LEAD TEACHER Gender Identity Not on file Sexual Orientation Not on file Last Filed Vital Signs Vital Sign Reading Time Taken Comments Blood Pressure 138/90 06/23/2024 12:56 PM MONTESSORI LEAD TEACHER Pulse 78 06/23/2024 12:56 PM MONTESSORI LEAD TEACHER Temperature 36.8 ??C (98.3 ??F) 06/07/2024 9:04 AM CS T Respiratory Rate 18 06/07/2024 9:04 AM MONTESSORI LEAD TEACHER Oxygen Saturation 96% 06/23/2024 12:56 PM MONTESSORI LEAD TEACHER Inhaled Oxygen Concentration - - Weight 111 kg (244 lb 12.8 oz) 06/23/2024 12:56 PM MONTESSORI LEAD TEACHER Height 154.9 cm (5' 1 ) 06/23/2024 12:56 PM MONTESSORI LEAD TEACHER Body Mass Index 46.25 06/23/2024 12:56 PM MONTESSORI LEAD TEACHER Plan of Treatment Not on file Procedures Procedure Name Priority Date/Time Associated Diagnosis Comments SURGICAL PATHOLOGY Routine 06/07/2024 12:01 PM MONTESSORI LEAD TEACHER H. PYLORI UREASE SCREEN (SAMPSON TEST) STAT 06/07/2024 8:28 AM MONTESSORI LEAD TEACHER BOUGIE DILATION 06/07/2024 8:02 AM MONTESSORI LEAD TEACHER Positive H. pylori test Dyspepsia ESOPHAGOGASTRODUODENOSCOPY BIOPSY 06/07/2024 8:02 AM MONTESSORI LEAD TEACHER Positive H. pylori test Dyspepsia EGD 06/07/2024 7:21 AM MONTESSORI LEAD TEACHER COLONOSCOPY 02/03/2023 10:29 AM CDT from Last 3 Months or Most Recently Relevant to Health Maintenance Results * Surgical pathology (06/07/2024 12:01 PM MONTESSORI LEAD TEACHER) Gastric/Stomach biopsy 06/07/2024 12:01 PM MONTESSORI LEAD TEACHER 06/07/2024 12:01 PM MONTESSORI LEAD TEACHER Narrative 06/09/2024 8:56 AM MONTESSORI LEAD TEACHER EPIC results best viewed via link to PDF [facility] Department of Pathology [address] [place] [address] Note to Patients: This report may contain [...] Final Report Patient Name: ??ELIZABETH VELASQUEZ Address: ??[address] [place] [address], ??[place], [place] ??[address] Gender: ??F : ??1965 (Age: 58) Service: ??Gastro Location: ??[facility] Hospital #: ??[id number] Patient Type: ??[facility] Accession # ?[id number] Taken: ??06/07/2024 Received: ??06/07/2024 Accessioned: ??06/07/2024 Reported: [...] and 2 mm. All in B. T.A. Rubio Collier., P.A./Muna Gage M.D. REPORT IMAGES AND SCANNED DOCUMENTS, IF INCLUDED, ONLY VIEWABLE IN PDF VERSION OF REPORT The performance characteristics of some immunohistochemical stains, fluorescence in-situ hybridization tests and immunophenotyping by flow cytometry cited in this report (if any) were determined by the Surgical Pathology Department at [facility] as part of an ongoing design quality engineer program and in compliance with [...] characteristics determined by the Surgical Pathology Department [facility]. ??It has not been cleared or [...] screen (SAMPSON test) Tissue (06/07/2024 8:28 AM MONTESSORI LEAD TEACHER) H. pylori, rapid (SAMPSON) Negative Negative Tissue 06/07/2024 8:28 AM MONTESSORI LEAD TEACHER 06/07/2024 12:00 PM MONTESSORI LEAD TEACHER Elisa Abbott MD LAB MICROBIOLOGY - GENERAL ORDERABLES Final Result [facility]) 1 [facility] Department [place] [address] * EGD (06/07/2024 7:21 AM MONTESSORI LEAD TEACHER) Anatomical Region Laterality Modality Other Narrative Procedure Note Elisa Abbott MD - 06/07/2024 7:21 AM CST [facility] Patient Name: Elizabeth Velasquez Procedure Date: 06/07/2024 7:21 AM Date of : 1965 Admit Type: Outpatient Age: 58 Gender: Female Attending MD: Elisa Abbott M.D. Room: [facility] ENDOSCOPY ROOM 1 Note Status: Finalized Patient [...] passed under direct vision. The Endoscope GIF-[id number] was introduced through the mouth, and advanced [...] 7:21 AM Procedure Code(s): --- Professional --- 57099, Esophagogastroduodenoscopy, flexible, transoral; with biopsy, single or multiple 10546, Dilation of esophagus, by unguided sound or bougie, single or multiple passes Diagnosis Code(s): --- Professional --- K31.89, Other diseases of stomach and duodenum R13.10, Dysphagia, unspecified CPT copyright 2020 [employer]. All rights reserved. The codes documented in this report are preliminary and upon dentures lab technician reviewmay be revised to meet current compliance requirements. Recognized by the [employer] for promoting quality in endoscopy Elisa Abbott MD ENDOSCOPY PROCEDURES Final Result * COLONOSCOPY (02/03/2023 10:29 AM CDT) Anatomical Region Laterality Modality Other Narrative Procedure Note Elisa Abbott MD - 02/03/2023 10:29 AM CDT [facility] Patient Name: Elizabeth Velasquez Procedure Date: 02/03/2023 10:29 AM Date of : 1965 Admit Type: Outpatient Age: 57 Gender: Female Attending MD: Elisa Abbott M.D. Room: [facility]COPY RO[facility] 1 Note Status: Finalized Patient [...] under direct vision. The Pediatric Colonoscope [id number]-[id number] was introducedthrough the anus and advanced to [...] 10:29 AM Procedure Code(s): --- Professional --- 26940, Colonoscopy, flexible; with biopsy, single or multiple Diagnosis Code(s): --- Professional --- Z80.0, Family history of malignant neoplasm of digestive organs K64.8, Other hemorrhoids CPT copyright 2020 [employer]. All rights reserved. The codes documented in this report are preliminary and upon dentures lab technician reviewmay be revised to meet current compliance requirements. Recognized by the [employer] for promoting quality in endoscopy Elisa Abbott MD ENDOSCOPY PROCEDURES Final Result from Last 3 Months or Most Recently Relevant to Health Maintenance [place] Advance Directives For more information, please contact: [phone] * Full Code (Latest Code Status on [...] 11:16 AM 01/18/2018 3:21 PM Care Teams Rural Service Engineer Relationship Specialty Start Date End Date Tomasz Martinez PA [address] [place] [address] PCP - General 12/15/17
--- OUTSIDE RECORDS SUMMARY | 2024-07-21 10:49 | XMS_ITS | Encounter Summary ---
Author Organization [facility] Healthcare Address [facility] [place] [address] Care Team Providers Care Manager Of Merchandising Name Role Phone Tomasz Martinez Primary Care Provider [phone] Reason for Visit * Reason Comments Back Pain Encounter Details Date Type Department Care Team (Late st Contact Info) Description 07/14/2023 2:21 PM ASSISTANT FINANCIAL ACCOUNTANT - 07/14/2023 3:31 PM ASSISTANT FINANCIAL ACCOUNTANT Emergency [facility] Emergency Department [address] [place] [address] Paresthesia of right leg (Primary Dx) Discharge Disposition: Discharge to home [...] on file 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 ASSISTANT FINANCIAL ACCOUNTANT Gender Identity Not on file Sexual Orientation Not on file documented as of this encounter Last Filed Vital Signs Vital Sign Reading Time Taken Comments Blood Pressure 141/101 07/14/2023 1:59 PM ASSISTANT FINANCIAL ACCOUNTANT Pulse 99 07/14/2023 1:59 PM ASSISTANT FINANCIAL ACCOUNTANT Temperature 37.8 ??C (100 ??F) 07/14/2023 1:59 PM ASSISTANT FINANCIAL ACCOUNTANT Respiratory Rate 18 07/14/2023 1:59 PM ASSISTANT FINANCIAL ACCOUNTANT Oxygen Saturation 99% 07/14/2023 1:59 PM ASSISTANT FINANCIAL ACCOUNTANT Inhaled Oxygen Concentration - - Weight 114.3 kg (251 lb 15.8 oz) 07/14/2023 3:05 PM ASSISTANT FINANCIAL ACCOUNTANT Height 154.9 cm (5' 1 ) 07/14/2023 3:05 PM ASSISTANT FINANCIAL ACCOUNTANT Body Mass Index 47.61 07/14/2023 3:05 PM ASSISTANT FINANCIAL ACCOUNTANT documented in this encounter Discharge Instructions * Discharge Instructions* Jorge Hassan NP - 07/14/2023 3:23 PM ASSISTANT FINANCIAL ACCOUNTANT You likely have an overactive nerve to your right thigh. Take the medication as directed. Follow up with your primary care physician as discussed. STANT FINANCIAL ACCOUNTANT * Attachments The following attachments cannot be sent through Care Everywhere. * Paraesthesias (Panamanian) documented in this encounter Medications at Time of Discharge busPIRone (BUSPAR) 5 mg tabletIndication s:Generalized Anxiety Disorder Take 1 tablet (5 mg total) by mouth daily gabapentin (NEURONTIN) 100 mg capsule Take 2 capsules (200 mg total) by mouth 2 (two) times a day for 14 days 56 capsule 07/14/2023 ibuprofen (ADVIL,MOTRIN) 600 mg tabletIndication s:Anti-inflammat ory,Pain Take 1 tablet (600 mg total) by mouth every 6 (six) hours as needed for pain 30 tablet 11/08/2020 levothyroxine (SYNTHROID, LEVOTHROID) 50 mcg tablet Take 1 tablet (50 mcg total) by mouth grease cup filler before breakfast ondansetron (ZOFRAN) 4 mg tablet Take 1 tablet (4 mg total) by mouth every 4 (four) hours as needed for nausea or vomiting 15 tablet 02/18/2020 documented as of this encounter Ordered Prescriptions Prescription Sig Dispense Quantity Refills Last Filled Start Date End Date gabapentin (NEURONTIN) 100 mg capsule Take 2 capsules (200 mg total) by mouth 2 (two) times a day for 14 days 56 capsule 07/14/2023 documented in this encounter Discharge Disposition Disposition Code Departure Means Destination Comment s Discharge to home or self care documented in this encounter ED Notes * Jorge Hassan NP - 07/14/2023 3:29 PM CST Images from the original note were not included. HPI Chief Complaint Patient presents with Back Pain 57 y/o female, presents with right thigh numbness for over 2 weeks. States that she has been evaluated by multiple facilities and no one has been able to give her a solid answer as to the cause. Initially suggested to me that she may have a blood clot. (Has not had these before). She also c/o a cough for about 1 week. Feels its a 'sinus issue' and declined any workup need for this. Her leg is the primary complaint. On further discussion, she describes the area of her right medial thigh with a feeling of ongoing 'pins and needles' to the point where it difficult to walk sometimes (was ambulatory from triage bay and waiting room with a steady gait). 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 Denies any motor deficits or saddle anaesthesia. Patient History: Patient Active Problem List Diagnosis [...] are negative. Physical Exam ED Triage Vitals Temp Pulse Resp BP SpO2 07/14/23 1359 07/14/23 1359 07/14/23 1359 07/14/23 1359 07/14/23 1359 37.8 ??C (100 ??F) 99 18 (!) 141/101 99 % Temp src Heart Rate Source Patient Position BP Location FiO2 (%) 07/14/23 1359 -- -- -- -- Oral Height Height Method Weight Weight Method 07/14/23 1505 07/14/23 1505 07/14/23 1505 07/14/23 1505 1.549 m (5' 1 ) Estimated 114.3 kg (251 lb 15.8 oz) Estimated Physical Exam Vitals and nursing note reviewed. Constitutional: Appearance: Normal appearance. HENT: Head: Normocephalic and atraumatic. Nose: Nose normal. Mouth/Throat: Mouth: Mucous membranes are dry. Pharynx: Oropharynx is clear. Eyes: Extraocular Movements: Extraocular movements intact. Pupils: Pupils are equal, round, and reactive to light. Pulmonary: Effort: Pulmonary effort is normal. Breath sounds: Normal breath sounds. Abdominal: General: Bowel sounds are normal. Tenderness: There is no guarding. Musculoskeletal: General: Normal range of motion. Comments: Notable paraesthesia as shown on diagram. Skin: General: Skin is warm and dry. Capillary Refill: Capillary refill takes less than 2 seconds. Comments: Trace pitting BLE edema. Negative angela. No Unilateral swelling. Neurological: General: No focal deficit present. Mental Status: She is alert and oriented to person, place, and time. Psychiatric: Mood and Affect: Mood normal. Behavior: Behavior normal. MDM Medical Decision Making RLE parasthesias, r/o DVT, r/o hip dislocation, R/O knee injury. Exam findings consistent with RLE medial upper leg parasthesia - ?hypersensitive peripheral nerve over right thigh. No other physical exam findings to explain concern. Notably she also has a cough, she declines workup for this as she just had on 07/12 with CXR and tessalon. Will give RX for neurontin and encouraged her to follow up with her PCP. No indication for any emergent imaging as her findings are unilaterally isolated to her right thigh. Risk Prescription drug management. Final diagnoses: Paresthesia of right leg Jorge Hassan NP 07/14/23 1605 STANT FINANCIAL ACCOUNTANT * Mary Kay Escobedo RN - 07/14/2023 1:53 PM CST Pt to ED with continued lower back pain radiating to her R knee x months. States she has been seen at 2 other hospitals and not given any answers. States this impairs her ability to work. States she is able to ambulate but it hurts. Pt frequently coughing in triage, state she has had a sinus infection x 1 week STANT FINANCIAL ACCOUNTANT STANT FINANCIAL ACCOUNTANT documented in this encounter Plan of Treatment Not on file documented as of this encounter Visit Diagnoses Diagnosis Paresthesia of right leg- Primary Disturbance of skin sensation documented in this encounter Administered Medications Inactive Administered Medications - up to 3 most recent administrations Medication Order MAR Action Action Date Dose Rate Site gabapentin (NEURONTIN) capsule 200 mg 200 mg, oral, Once, On Wed07/14/23 at 1523, For 1 dose Given 07/14/2023 3:25 PM ASSISTANT FINANCIAL ACCOUNTANT 200 mg documented in this encounter Active and Recently Administered Medications Times are shown in ASSISTANT FINANCIAL ACCOUNTANT. Scheduled Medication Order 07/12/2023 07/13/2023 07/14/2023 gabapentin (NEURONTIN) capsule 200 mg (COMPLETED) 200 mg, oral, Once, On Wed07/14/23 at 1523, For 1 dose 1525 (Given - Provid er: Jennifer Mcghee RN) documented in this encounter Orders Medications Ordered That Travis ht Not Have Been Administered Count Last Ordered Date First Ordered Date gabapentin (NEURONTIN) capsule 200 mg 1 documented in this encounter Care Teams Manager Of Merchandising Relationship Specialty Start Date End Date Tomasz Martinez PA [address] [place] [address] PCP - General 12/15/17 documented as of this encounter
--- OUTSIDE RECORDS SUMMARY | 2024-07-21 10:50 | XMS_ITS | Encounter Summary ---
Author Organization [facility] Healthcare Address [address] [place] [address] Care Team Providers Care Tube Maker Name Role Phone Unavailable Primary Care Provider Unavailabl e Encounter Details Date Type Department Care Team (Late st Contact Info) Description 05/15/2011 4:20 PM CDT - 05/15/2011 6:35 PM CDT Hospital Encounter [facility] Bipin Suh MD [address] [place] [address] Contusion of knee; Activities involving walking, marching and hiking Social History Tobacco Use Types Packs/Day Years Used Date Smoking Tobacco: Never Assessed Comments Unknown Sex and Gender Information Value Date Recorded Sex Assigned at Not on file 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
--- OUTSIDE RECORDS SUMMARY | 2024-07-21 10:50 | XMS_ITS | Encounter Summary ---
Author Organization [facility] Healthcare Address [address] [place] [address] Care Team Providers Care Carpentry Teacher Name Role Phone Unavailable Primary Care Provider Unavailabl e Encounter Details Date Type Department Care Team (Late st Contact Info) Description 09/19/2008 9:18 AM WATCH CASER - 09/19/2008 10:52 AM WATCH CASER Hospital Encounter [facility] Rose Mary Bassett MD [address] [facility] [place] [address] Open wound of finger; Accident caused by other specified cutting and piercing instruments or objects; Place of occurrence, home Social History Tobacco Use Types Packs/Day Years Used Date Smoking Tobacco: Never Assessed Comments Unknown Sex and Gender Information Value Date Recorded Sex Assigned at Not on file 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 WATCH CASER Gender Identity Not on file Sexual Orientation Not on file documented as of this encounter Plan of Treatment Not on file documented as of this encounter Visit Diagnoses Diagnosis Open wound of finger Open wound of finger(s) , without mention of complication Accident caused by other specified cutting and piercing instruments or objects Place of occurrence, home documented in this encounter
--- OUTSIDE RECORDS SUMMARY | 2024-07-21 10:50 | XMS_ITS | Encounter Summary ---
Author Organization [facility] Healthcare Address [address] [place] [address] Care Team Providers Care Monitoring Tech Name Role Phone Unavailable Primary Care Provider Unavailabl e Encounter Details Date Type Department Care Team (Late st Contact Info) Description 08/15/2013 8:07 AM TOOL LAPPER HAND - 08/15/2013 10:06 AM TOOL LAPPER HAND Hospital Encounter [facility] Nic Suh MD [address] [facility] [address] [place] [address] Sprains and strains; Accident; Unspecified place of occurrence; Viral infection in conditions classified elsewhere and of unspecified site Social History Tobacco Use Types Packs/Day Years Used Date Smoking Tobacco: Never Assessed Comments Unknown Sex and Gender Information Value Date Recorded Sex Assigned at Not on file 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 TOOL LAPPER HAND Gender Identity Not on file Sexual Orientation Not on file documented as of this encounter Plan of Treatment Not on file documented as of this encounter Procedures Procedure Name Priority Date/Time Associated Diagnosis Comments XR CHEST PA LATERAL 2 VIEWS Routine 08/15/2013 8:47 AM TOOL LAPPER HAND SERUM COMPREHENSIVE METABOLIC PANEL Routine 08/15/2013 8:40 AM TOOL LAPPER HAND BLOOD WBC CELL MORPHOLOGIC EXAM, AUTO Routine 08/15/2013 8:40 AM TOOL LAPPER HAND BLOOD CELL COUNT (CBC) Routine 4 8:40 AM TOOL LAPPER HAND INFLUENZA A, B AG Routine 08/15/2013 8:3 0 AM TOOL LAPPER HAND DISCHARGE LABORATORY CUMULATIVE REPORT Routine 08/15/2013 12:00 AM TOOL LAPPER HAND documented in this encounter Results * XR Chest PA Lateral 2 View (08/15/2013 8:47 AM TOOL LAPPER HAND) Anatomical Region Laterality Modality Body, Chest N/A Radiographic Annamarie ging 08/15/2013 8:47 AM TOOL LAPPER HAND Narrative 08/15/2013 3:32 PM TOOL LAPPER HAND XR Chest 2 Views ?[id number] ??Acc#: ??[id number] DATE OF EXAM: ??Aug 15 2013 CLINICAL HISTORY: Cough. RESULT: Two views of the chest are compared to a prior exam dated 04/15/12. ??The lungs are clear bilaterally with no focal infiltrates. ??The heart size and pulmonary vascularity are normal. IMPRESSION: NO ACTIVE DISEASE. Interpreting Physician: ??DR ALLA ESCOBAR M.D. ??Read on: ??Aug 15 2013 9:51A Transcribed by: ??grisel ??On: Aug 15 2013 ??1:04P Approved Electronically by: ??SHAWN Sánchez, DR GOLD ??on: ??Aug 15 2013 3:32P Ordering DR: DR NIC LAMA Attending DR: BRICE MINER Procedure Note Provider, Abdoulaye, - 11/26/2016 XR Chest 2 Views [id number] Acc#: [id number] DATE OF EXAM: Aug 15 2013 CLINICAL HISTORY: Cough. RESULT: Two views of the chest are compared to a prior exam dated 04/15/12. Thelungs are clear bilaterally with no focal infiltrates. The heart size andpulmonary vascularity are normal. IMPRESSION: NO ACTIVE DISEASE. Interpreting Physician: DR ALLA ESCOBAR M.D. Read on: Aug 15 20139:51A Transcribed by: vam On: Aug 15 2013 1:04P Approved Electronically by: DR ALLA ESCOBAR M.D. on: Aug 15 20133:32P Ordering DR: DR NIC LAMA Attending DR: BRICE MINER us Historical Provider MD GREGG XR PROCEDURES Final R esult * (ABNORMAL) Blood cell count (CBC) (08/15/2013 8:40 AM TOOL LAPPER HAND) WBC 5.6 4.0 - 10.5 K/cumm HISTORICAL RESULTS RBC 3.80(L) 4.20 - 5.40 M/cumm HISTORICAL RESULTS Hgb 10.5(L) 12.0 - 16.0 g/dl HISTORICAL RESULTS Hct 33.3(L) 37.0 - 47.0 % HISTORICAL RESULTS MCV 87.6 77.0 - 97.0 fl HISTORICAL RESULTS MCH 27.6 23.0 - 34.0 pg HISTORICAL RESULTS MCHC 31.5(L) 32.0 - 36.0 g/dl HISTORICAL RESULTS Rdw 13.9 11.5 - 14.5 % HISTORICAL RESULTS Platelets 336 150 - 451 K/cumm HISTORICAL RESULTS MPV 10.1 7.4 - 10.4 fl HISTORICAL RESULTS Blood specimen (specimen) 08/15/2013 8:40 AM TOOL LAPPER HAND Nic Lama MD LAB BLOOD ORDERABLES Final Result HISTORICAL RESULTS * (ABNORMAL) Blood WBC cell morphologic exam, auto (08/15/2013 8:40 AM TOOL LAPPER HAND) Lymphocytes 22.3(L) 25.0 - 33.0 % HISTORICAL RESULTS Monos 11.5 1.0 - 13.0 % HISTORICAL RESULTS Neutrophils 60.2 54.0 - 69.0 % HISTORICAL RESULTS Eosinophils 4.9 0.0 - 10.0 % HISTORICAL RESULTS Basophils 0.9 0.0 - 1.0 % HISTORICAL RESULTS Immature granulocytes 0.2 0.0 - 1.0 % HISTORICAL RESULTS Lymphocytes, abs 1.2 1.2 - 3.4 K/cumm HISTORICAL RESULTS Monocytes, absolute 0.6(L) 1.1 - 1.9 K/cumm HISTORICAL RESULTS Neutrophils, abs 3.3 1.4 - 6.5 K/cumm HISTORICAL RESULTS Eosinophils, abs 0.3 0.0 - 0.7 cells/cum m HISTORICAL RESULTS Basophils, abs 0.1 0.0 - 0.2 K/cumm HISTORICAL RESULTS Immature granulocyte, abs 0.0 0.0 - 0.0 K/cumm HISTORICAL RESULTS Blood specimen (specimen) 08/15/2013 8:40 AM TOOL LAPPER HAND Nic Lama MD LAB BLOOD ORDERABLES Final Result HISTORICAL RESULTS * (ABNORMAL) Serum comprehensive metabolic panel (08/15/2013 8:40 AM TOOL LAPPER HAND) BUN 8.0 6.0 - 23.0 mg/dl HISTORICAL RESULTS Sodium 138 134 - 143 mmol/L HISTORICAL RESULTS Potassium, sr 3.8 3.4 - 5.0 mmol/L HISTORICAL RESULTS Chloride 104 99 - 108 mmol/L HISTORICAL RESULTS CO2 29 23 - 32 mmol/L HISTORICAL RESULTS Glucose 91 70 - 199 mg/dl HISTORICAL RESULTS Comment: Note:The glucose is assumed non fasting Fastin-99 mg/dl Random: 70-199 mg/dl Either a fasting glucose > 126 mg/dL or a random glucose > 200 mg/dL plus symptoms is diagnostic of diabetes when confirmed on another day. Fasting values > 100 mg/dl but < 125 mg/dL are diagnostic of impaired fasting glucose. New reference ranges implemented 06/12/2013. Creatinine 0.71 0.60 - 1.30 mg/dl HISTORICAL RESULTS Comment: eGFR: >70 ml/min/1.73sq.m if non -Gibraltarian. eGFR: >70 ml/min/1.73sq.m if -Gibraltarian. AVE GFR for 40-49 yr. age group: ??99 ml/min/1.73sq.m Calculated using MDRD Equation BUN/creat ratio 11 10 - 20 HIST ORICAL RESULTS A. gap 9 7 - 14 mmol/L HISTORICAL RESULTS Protein, sr 8.0 6.4 - 8.0 g/dl HISTORICAL RESULTS Alb 3.5 3.3 - 4.5 g/dl HISTORICAL RESULTS Alb/glob ratio 0.8(L) 1.1 - 1.8 HISTO RICAL RESULTS Calcium 8.6 8.6 - 9.8 mg/dl HISTORICAL RESULTS Bilirubin 0.2 0.0 - 1.1 mg/dl HISTORICAL RESULTS Alk phos 94 44 - 125 Units/L HISTORICAL RESULTS AST 13 5 - 40 Units/L HISTORICAL RESULTS Comment:AST - NOTE REFERENCE RANGE CHANGE ALT 25 15 - 70 Units/L HISTORICAL RESULTS Serum 08/15/2013 8:40 AM TOOL LAPPER HAND Nic Lama MD LAB BLOOD ORDERABLES Final Result HISTORICAL RESULTS * Influenza A, B ag (08/15/2013 8:30 AM TOOL LAPPER HAND) Influ A ag, nasopharyngeal Negative HISTORICAL RESULTS Comment:NEGATIVE RESULTS FOR THIS ASSAY ARE CONSIDERED PRESUMPTIVE Influ B ag, nasopharyngeal Negative HISTORICAL RESULTS Miscellaneous 08/15/2013 8:3 0 AM TOOL LAPPER HAND us Nic Lama MD LAB BLOOD ORDERABLES Final Result HISTORICAL RESULTS * Discharge Laboratory Cumulative Report (08/15/2013 12:00 AM TOOL LAPPER HAND) 08/15/2013 Narrative HISTORICAL RESULTS - 08/16/2013 12:49 AM TOOL LAPPER HAND Patient No: [id number] ? [facility] Patient Name: ELIZABETH SOTO ? [facility] Healthcare Age: 48 YRS ?: 1965 ?Sex:F ?[address] )[id number] ?? Adm Dt: 08/15/2013 ?[place], [place] ??[address] Created: 08/16/2013 ??0049 ?? Pt. Type: E ? Discharge Dt: 08/15/2013 ? Pathologists: Sherley Schmitz MD Admit DrHernan Attend Dr: NIC LAMA MD ? BLOOD CELL COUNTS ?Collection Date: ?08/15/13 ?Collection Time: ?0840 ? Ref Range: ?? Units: [4.00-10.50] /CMM ? WBC X 10^3 ?5.55 [4.20-5.40] ??/CMM ? RBC X 10^6 ?3.80 L [12.0-16.0] ??G/DL ? HGB ? 10.5 L [37.0-47.0] ??% ?HCT ? 33.3 L [77.0-97.0] ??FL ? MCV ? 87.6 [23.0-34.0] ??PG ? MCH ? 27.6 [32.0-36.0] ??% ?MCHC ?31.5 L [11.5-14.5] ??% ?RDW ? 13.9 [150-451] ?? /CMM ? PLT X 10^3 ? 336 ?BLOOD CELL DIFFERENTIAL ?Collection Date: ?14 ?Collection Time: ?0840 ? Ref Range: ?? Units: [54.0-69.0] ??% ?NEUTROPHILS ? 60.2 [25.0-33.0] ??% ?LYMPHOCYTES ? 22.3 L [1.0-13.0] ??% ?MONOCYTES ? 11.5 [0.0-10.0] ??% ?EOSINOPHILS ?4.9 [0.0-1.0] ?? % ?BASOPHILS ?0.9 ? /CMM ? A LYMPHOCYTE ? 1.2 [0.0-1.0] ?? % ?IMM GRAN % ? 0.2 [0.00-0.02] ??/CMM ? A IMM GRAN ?0.01 [1.1-1.9] ?? /CMM ? A MONOCYTE ? 0.6 L [1.4-6.5] ?? /CMM ? A NEUTROPHIL ? 3.3 [0.0-0.7] ?? /CMM ? A EOSINOPHIL ? 0.3 [0.0-0.2] ?? /CMM ? A BASOPHIL ? 0.1 Footnotes and Symbols: L = Low ?? CONTINUED ?Page: ?? 1 Patient No: [id number] ? [facility] Patient Name: ELIZABETH SOTO ? [facility] Healthcare Age: 48 YRS ?: 1965 ?Sex:F ?[address] )[id number] ?? Adm Dt: 08/15/2013 ?[place] ??[address] Created: 08/16/2013 ??0049 ?? Pt. Type: E ? Discharge Dt: 08/15/2013 ? Pathologists: Sherley Schmitz MD Admit Dr. Sofía Adler: NIC LAMA MD ? GENERAL CHEMISTRY ?Collection Date: ?08/15/13 ?Collection Time: ?0840 ? Ref Range: ?? Units: [134-143] ?? MMOL/L ? SODIUM ? 138 [3.4-5.0] ?? MMOL/L ? POTASSIUM ?3.8 [99.0-108.0] MMOL/L ? CHLORIDE ? 104.0 [23.0-32.0] ??MMOL/L ? TOTAL CO2 ? 28.7 ?? [7-14] ?MMOL/L ? ANION GAP ?9 ??[70-199] ?? MG/DL ?GLUCOSE ? 91 f [6.4-8.0] ?? G/DL ? TOTAL PROTEIN ?8.0 [3.3-4.5] ?? G/DL ? ALBUMIN ?3.5 [1.1-1.8] ?A/G RATIO ?0.8 L [8.6-9.8] ?? MG/DL ?CALCIUM ?8.6 [0.0-1.1] ?? MG/DL ?BILI TOTAL ? 0.2 ??[44-125] ?? U/L ?ALK PHOS ?94 ?? [5-40] ?U/L ?AST(SGOT) ? 13 f ??[15-70] ?U/L ?ALT(SGPT) ? 25 f [6.0-23.0] ??MG/DL ?BUN ?8.0 ??[10-20] ? B/C RATIO ? 11 Footnotes and Symbols: L = Low, f = Footnote GLUCOSE (07/04/13 -- Current) Note:The glucose is assumed non fasting Fastin-99 mg/dl Random: 70-199 mg/dl Either a fasting glucose > 126 mg/dL or a random glucose > 200 mg/dL plus symptoms is diagnostic of diabetes when confirmed on another day. Fasting values > 100 mg/dl but < 125 mg/dL are diagnostic of impaired fasting glucose. New reference ranges implemented 06/12/2013. AST(SGOT) (01/11/13 -- Current) AST ??- NOTE REFERENCE RANGE CHANGE ALT(SGPT) (02/21/13 -- Current) ?? CONTINUED ?Page: ?? 2 Patient No: [id number] ? [facility] Patient Name: ELIZABETH SOTO ? [facility] Healthcare Age: 48 YRS ?: 1965 ?Sex:F ?[address] )[id number] ?? Adm Dt: 08/15/2013 ?[place], [place] ??[address] Created: 08/16/2013 ??0049 ?? Pt. Type: E ? Discharge Dt: 08/15/2013 ? Pathologists: Sherley Schmitz MD Admit Attend Dr: NIC LAMA MD ? GENERAL CHEMISTRY ?Collection Date: ?08/15/13 ?Collection Time: ?0840 ? Ref Range: ?? Units: [0.60-1.30] ??MG/DL ?CREATININE ?0.71 f ?08/15/13 0840 eGFR: >70 ml/min/1.73sq.m if non -Gibraltarian. eGFR: >70 ml/min/1.73sq.m if -Gibraltarian. AVE GFR for 40-49 yr. age group: ??99 ml/min/1.73sq.m Calculated using MDRD Equation FOOTNOTE ADDED ON ?? 08/15/13 ?? AT 0914 BY 999 ? SEROLOGY ?Collection Date: ?08/15/13 ?Collection Time: ?0830 ? Ref Range: ?? Units: ?INFLUENZA A AG ?NEGATIVE f ?INFLUENZA B AG ?NEGATIVE Footnotes and Symbols: f = Footnote INFLUENZA A AG (10/14/11 -- Current) NEGATIVE RESULTS FOR THIS ASSAY ARE CONSIDERED PRESUMPTIVE ?? END OF CHART ? Page: ?? 3 us Historical Provider LAB BLOOD ORDERABLES Phyllis andres Result HISTORICAL RESULTS documented in this encounter Visit Diagnoses Diagnosis Sprains and strains Accident Unspecified accident Unspecified place of occurrence Viral infection in conditions classified elsewhere and of unspecified site documented in this encounter
--- OUTSIDE RECORDS SUMMARY | 2024-07-21 10:50 | XMS_ITS | Encounter Summary ---
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
--- OUTSIDE RECORDS SUMMARY | 2024-07-21 10:50 | XMS_ITS | Encounter Summary ---
Author Organization [facility] Healthcare Address [address] [place] [address] Care Team Providers Care Tree Sapper Name Role Phone Unavailable Primary Care Provider Unavailabl e Encounter Details Date Type Department Care Team (Late st Contact Info) Description 08/19/2007 1:25 PM COMSEC MANAGER - 08/19/2007 3:00 PM COMSEC MANAGER Hospital Encounter [facility] Bipin Suh MD [address] [place] [address] Social History Tobacco Use Types Packs/Day Years Used Date Smoking Tobacco: Never Assessed Comments Unknown Sex and Gender Information Value Date Recorded Sex Assigned at Not on file 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 COMSEC MANAGER Gender Identity Not on file Sexual Orientation Not on file documented as of this encounter Plan of Treatment Not on file documented as of this encounter Visit Diagnoses Not on filedocumented in this encounter
--- OUTSIDE RECORDS SUMMARY | 2024-07-21 10:50 | XMS_ITS | Encounter Summary ---
Author Organization [facility] Healthcare Address [address] [place] [address] Care Team Providers Care Radiology Orderly Name Role Phone Unavailable Primary Care Provider Unavailabl e Encounter Details Date Type Department Care Team (Late st Contact Info) Description 04/12/2016 10:13 PM CDT - 04/13/2016 12:24 AM CDT Hospital Encounter [facility] CLINCON[facility]ith Joiner MD [facility] [place] [address] Urinary tract infection; Major depressive disorder, single episode (CMS/[facility]) Social History Tobacco Use Types Packs/Day Years Used Date Smoking Tobacco: Never Assessed Comments Unknown Sex and Gender Information Value Date Recorded Sex Assigned at Not on file 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 Gender Identity Not on file Sexual Orientation Not on file documented as of this encounter Plan of Treatment Not on file documented as of this encounter Procedures Procedure Name Priority Date/Time Associated Diagnosis Comments DISCHARGE LABORATORY CUMULATIVE REPORT 04/13/2016 SERUM LIPASE Routine 04/12/2016 11:00 PM CDT SERUM ESTIMATED GLOMERULAR FILTRATION RATE Routine 04/12/2016 11:00 PM CDT SERUM AMYLASE Routine 04/12/2016 11:00 PM CDT PLASMA COMPREHENSIVE METABOLIC PANEL Routine 04/12/2016 11:00 PM CDT BLOOD CELL COUNT (CBC) Routine 6 11:00 PM CDT BLOOD CELL MORPHOLOGIC EXAM Routine 04/12/2016 11:00 PM CDT URINE MICROSCOPY Routine 04/12/2016 10:4 0 PM CDT URINALYSIS Routine 04/12/2016 10:40 PM CDT URINE (AEROBIC) CULTURE, CDR Routine 04/12/2016 10:40 PM CDT documented in this encounter Results * DISCHARGE LABORATORY CUMULATIVE REPORT (04/13/2016) Narrative 04/13/2016 Ordered by an unspecified provider. us Historical Provider LAB BLOOD ORDERABLES Phyllis l Result * (ABNORMAL) Plasma comprehensive metabolic panel (04/12/2016 11:00 PM CDT) Sodium 140 135 - 145 mmol/L CDR HISTORICAL RESULTS K, pl 3.7 3.5 - 5.1 mmol/L CDR HISTORICAL RESULTS Chloride 100 97 - 110 mmol/L CDR HISTORICAL RESULTS CO2 27 22 - 32 mmol/L CDR HISTORICAL RESULTS A. gap 17(H) 8 - 16 mmol/L CDR HISTORICAL RESULTS Glucose 134 70 - 199 mg/dl CDR HISTORICAL RESULTS Comment: Interpretive Data Note:The glucose is assumed non fasting Fastin-99 mg/dL Random: ??70-199 mg/dL Either a fasting glucose > 126 mg/dL or a random glucose > 200 mg/dL plus symptoms is diagnostic of diabetes when confirmed on another day. Fasting values > 100 mg/dL but < 125 mg/dL are diagnostic of impaired fasting glucose. Current interpretive data was last revised on 2014. BUN 10.9 8.0 - 25.0 mg/dl CDR HISTORICAL RESULTS Creatinine 0.58(L) 0.60 - 1.10 mg/dl CDR HISTORICAL RESULTS BUN/creat ratio 19 10 - 20 CDR HISTORICAL RESULTS Calcium 8.9 8.6 - 10.2 mg/dl CDR HISTORICAL RESULTS Protein, sr 7.5 6.0 - 8.4 g/dl CDR HISTORICAL RESULTS Alb 4.1 3.6 - 5.0 g/dl CDR HISTORICAL RESULTS Alk phos 85 40 - 130 Units/L CDR HISTORICAL RESULTS ALT 12 5 - 45 Units/L CDR HISTORICAL RESULTS AST 11 10 - 40 Units/L CDR HISTORICAL RESULTS Bilirubin 0.2 <=1.2 mg/dl CDR HISTORICAL RESULTS Plasma 04/12/2016 11:0 0 PM CDT Historical Provider LAB BLOOD ORDERABLES Phyllis andres Result Performing Organization Address [facility] de Phone Number CDR HISTORICAL RESULTS * Serum lipase (04/12/2016 11:00 PM CDT) Lip 20 10 - 70 Units/L CDR HISTORICAL RESULTS Serum 04/12/2016 11:0 0 PM CDT Result [facility] Historical Provider LAB BLOOD ORDERABLES Phyllis andres Result Performing Organization Address [facility] de Phone Number CDR HISTORICAL RESULTS * (ABNORMAL) Blood cell count (CBC) (04/12/2016 11:00 PM CDT) WBC 9.8(H) 3.8 - 9.8 K/cumm CDR HISTORICAL RESULTS RBC 3.80(L) 3.90 - 5.00 M/cumm CDR HISTORICAL RESULTS Hgb 10.8(L) 12.1 - 15.1 g/dl CDR HISTORICAL RESULTS Hct 34.4(L) 36.1 - 44.3 % CDR HISTORICAL RESULTS MCV 90.5 80.0 - 100.0 fl CDR HISTORICAL RESULTS MCH 28.4 26.7 - 33.7 pg CDR HISTORICAL RESULTS MCHC 31.4(L) 32.7 - 36.0 g/dl CDR HISTORICAL RESULTS Rdw 13.3 11.5 - 14.6 % CDR HISTORICAL RESULTS Platelets 281 140 - 440 K/cumm CDR HISTORICAL RESULTS MPV 10.5 8.0 - 12.0 fl CDR HISTORICAL RESULTS NRBC 0.0 0.0 - 0.0 % CDR HIST ORICAL RESULTS NRBC, abs 0.00 0.00 - 0.00 K/cumm CDR HISTORICAL RESULTS Blood specimen (specimen) 04/12/2016 11:00 PM CDT Historical Provider LAB BLOOD ORDERABLES Phyllis l Result Performing Organization Address [facility] de Phone Number CDR HISTORICAL RESULTS * Serum amylase (04/12/2016 11:00 PM CDT) [place], pl 55 30 - 100 Units/L CDR HISTORICAL RESULTS Serum 04/12/2016 11:0 0 PM CDT Historical Provider LAB BLOOD ORDERABLES Phyllis andres Result Performing Organization Address [facility] de Phone Number CDR HISTORICAL RESULTS * (ABNORMAL) Blood cell morphologic exam (04/12/2016 11:00 PM CDT) Neutrophils 84.5(H) 44.0 - 80.0 % CDR HISTORICAL RESULTS Immature granulocytes 0.3 0.0 - 1.0 % CDR HISTORICAL RESULTS Lymphocytes 8.9(L) 13.0 - 44.0 % CDR HISTORICAL RESULTS Monos 4.8 2.0 - 11.0 % CDR HISTORICAL RESULTS Eosinophils 1.3 0.0 - 6.0 % CDR HISTORICAL RESULTS Basophils 0.2 0.0 - 3.0 % CDR HISTORICAL RESULTS Neutrophils, abs 8.3(H) 1.6 - 7.0 K/cumm CDR HISTORICAL RESULTS Immature granulocyte, abs 0.0 0.0 - 0.2 K/cumm CDR HISTORICAL RESULTS Lymphocytes, abs 0.9 0.5 - 4.3 K/cumm CDR HISTORICAL RESULTS Monocytes, absolute 0.5 0.1 - 1.0 K/cumm CDR HISTORICAL RESULTS Eosinophils, abs 0.1 0.0 - 0.6 K/cumm CDR HISTORICAL RESULTS Basophils, abs 0.0 0.0 - 0.3 K/cumm CDR HISTORICAL RESULTS Blood specimen (specimen) 04/12/2016 11:00 PM CDT Historical Provider LAB BLOOD ORDERABLES Phyllis andres Result Performing Organization Address [facility] Co de Phone Number CDR HISTORICAL RESULTS * Serum estimated glomerular filtration rate (04/12/2016 11:00 PM CDT) eGFR >60 ml/min/1.7 3 m2 CDR HISTORICAL RESULTS Comment: Interpretation of Estimated GFR (eGFR): Normal ?>/= 60 mL/min/1.73m2 Possible Chronic Kidney Disease ??15 - 59 mL/min/1.73m2 Possible Kidney Failure ?< 15 ??mL/min/1.73m2 If -[place] multiply value by 1.16. ??Estimated glomerular filtration rate is determined by the CKD-EPI equation recommended by the National Kidney Foundation (KDIGO 2012 Clinical Practice Guideline for the Evaluation and Management of Chronic Kidney Disease. ??Kidney Intnl Suppl Aug 2012;3:1). ??The CKD-EPI equation should not be used in acute renal failure or acute kidney injury and is not valid in children. Serum 04/12/2016 11:0 0 PM CDT Historical Provider LAB BLOOD ORDERABLES Phyllis andres Result CDR HISTORICAL RESULTS * (ABNORMAL) Urinalysis (04/12/2016 10:40 PM CDT) Color, ur Yellow Yellow CDR HISTORICAL RESULTS Clarity, ur Turbid(A) Clear CDR HISTORICAL RESULTS Specific gravity, ur 1.016 1.003 - 1.030 CDR HISTORICAL RESULTS Comment:Normal Ranges: 1.003 -1.030 pH, ur 6.0 4.5 - 8.0 CDR HISTORICAL RESULTS Comment:Normal ranges: 4.5-8 .0 Protein, ur, quant 300(A) Negative mg/dl CDR HISTORICAL RESULTS Glucose, ur, quant Negative Negative mg/dl CDR HISTORICAL RESULTS Ketones, ur Negative Negative CDR HISTORICAL RESULTS Bilirubin, ur Negative Negative CDR HISTORICAL RESULTS U Blood Large(A) Negative CDR HISTORICAL RESULTS Urobilinogen, quant, ur 0.2 0.2 - 1.0 Josh Units/dl CDR HISTORICAL RESULTS Comment:Normal Ranges: 0.2-1 .0 EU/dL Nitrites, ur Positive(A) Negative CDR HISTORICAL RESULTS Leukocyte esterase, ur Large(A) Negative CDR HISTORICAL RESULTS Urine 04/12/2016 10:4 0 PM CDT Historical Provider MD LAB BLOOD ORDERABLES Phyllis l Result Performing Organization Address [facility] Co de Phone Number CDR HISTORICAL RESULTS * (ABNORMAL) Urine microscopy (04/12/2016 10:40 PM CDT) RBC, ur >100(A) 0 - 2 /hpf CDR HISTO RICAL RESULTS WBC, ur >100(A) 0 - 2 /hpf CDR HISTO RICAL RESULTS Bacteria, ur 4+(A) Negative CDR HIS TORICAL RESULTS Hyaline casts 2 - 5(A) 0 - 2 /lpf CDR H ISTORICAL RESULTS Epithelial cells, ur 0 - 2 0 - 2 /hpf CDR HISTORICAL RESULTS Urine 04/12/2016 10:4 0 PM CDT Historical Provider MD LAB BLOOD ORDERABLES Phyllis l Result Performing Organization Address [facility] de Phone Number CDR HISTORICAL RESULTS * Urine (aerobic) culture (04/12/2016 10:40 PM CDT) Organism [id number] CDR HISTORICAL RESULTS Urine (Unknown) 04/12/2016 1 0:40 PM CDT Impressions CDR HISTORICAL RESULTS - 04/15/2016 1:55 PM CDT Test performed at [facility], [address] [facility], [place]., [address] Narrative CDR HISTORICAL RESULTS - 04/15/2016 1:55 PM CDT Greater than or equal to 100,000 colonies/ml of Escherichia coli Plus growth of clinically insignificant bacterial true. Organism Antibiotic Method Susceptibility Escherichia coli Ampicillin Susceptible Escherichia coli Cefazolin Susceptible Escherichia coli Nitrofurantoin Susceptible Escherichia coli Gentamicin Susceptible Escherichia coli Trimethoprim with Sulfamethoxazole Susceptible Escherichia coli Meropenem Susceptible Escherichia coli Cefepime Susceptible Escherichia coli Ciprofloxacin Susceptible Escherichia coli Ceftazidime Susceptible Escherichia coli Ceftriaxone Susceptible Escherichia coli Piperacillin/Tazobactam Susceptible Escherichia coli Cephalexin Susceptible Escherichia coli Cefuroxime-axetil Susceptible Escherichia coli Cefdinir Susceptible Historical Provider MD LAB MICROBIOLOGY - GENERA L ORDERABLES Final Result Performing Organization Address [facility]/ZIP Co de Phone Number CDR HISTORICAL RESULTS documented in this encounter Visit Diagnoses Diagnosis Urinary tract infection Urinary tract infection, site not specified Major depressive disorder, single episode Major depressive disorder, single episode, unspecified documented in this encounter
--- OUTSIDE RECORDS SUMMARY | 2024-07-21 10:50 | XMS_ITS | Encounter Summary ---
Author Organization [facility] Address [address] [place] [address] [address] [place] [address] Care Team Providers Care Lithographic Photographer Name Role Phone Tomasz Martinez Primary Care Provider [phone] Reason for Visit * Reason Onset Date Comments Scheduling Testing/Treatment 12/07/2018 Encounter Details Date Type Department Care Team (Late st Contact Info) Description 12/07/2018 Telephone [facility] 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 Message left. I informed her that I faxed the orders to [facility] for her US and TSH level. Pt was informed to contact them to schedule appt. Phone number of [phone] for the imaging center was left for pt to call. Pt also informed to make sure she gets her labsdone at the same time. Pt also reminded to make sure she gets a copy of her disc of the US while she is there to bring to her follow up appt. Pt informed to call us with any other questions. documented in this encounter Plan of Treatment Not on file documented as of this encounter Visit Diagnoses Not on filedocumented in this encounter Care Teams Lithographic Photographer Relationship Specialty Start Date End Date Tomasz Martinez PA [address] [place] [address] PCP - General 12/15/17 documented as of this encounter
--- OUTSIDE RECORDS SUMMARY | 2024-07-21 10:50 | XMS_ITS | Encounter Summary ---
Author Organization [facility] Healthcare Address [address] [place] [address] Care Team Providers Care Linter Operator Name Role Phone Unavailable Primary Care Provider Unavailabl e Encounter Details Date Type Department Care Team (Late st Contact Info) Description 11/12/2013 8:44 AM CDT - 11/12/2013 11:59 PM CDT Hospital Encounter [facility] Suicidal ideation Social History Tobacco Use Types Packs/Day Years [...] as of this encounter Visit Diagnoses Diagnosis Suicidal ideation documented in this encounter
--- OUTSIDE RECORDS SUMMARY | 2024-07-21 10:50 | XMS_ITS | Encounter Summary ---
Author Organization [facility] Healthcare Address [address] [place] [id number] Care Team Providers Care Building Performance Specialist Name Role Phone Unavailable Primary Care Provider Unavailabl e Encounter Details Date Type Department Care Team (Late st Contact Info) Description 10/02/2007 1:30 PM TRANSCRIPTION MANAGER - 10/02/2007 2:47 PM TRANSCRIPTION MANAGER Hospital Encounter [facility] Bipin Suh MD [address] [place] [address] Social History Tobacco Use Types Packs/Day Years Used Date Smoking Tobacco: Never Assessed Comments Unknown Sex and Gender Information Value Date Recorded Sex Assigned at Not on file 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
--- OUTSIDE RECORDS SUMMARY | 2024-07-21 10:50 | XMS_ITS | Encounter Summary ---
Author Organization [facility] Healthcare Address [address] [place] [address] Care Team Providers Care Engraver Optical Frames Name Role Phone Tomasz Martinez Primary Care Provider [phone] Encounter Details Date Type Department Care Team (Latest Contact Info) Description 01/18/2018 10:11 AM CDT - 01/18/2018 1:20 PM CDT Hospital Encounter [facility] [address] [place] [address] Elisa Abbott MD [address] [place] [address] [phone] Discharge Disposition: Discharge to home or self care Social History Tobacco Use Types Packs/Day Years Used Date Smoking Tobacco: Never Smokeless Tobacco: Never Comments Unknown Sex and Gender Information Value Date Recorded Sex Assigned at Not on file 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 Gender Identity Not on file Sexual Orientation Not on file documented as of this encounter Last Filed Vital Signs Vital Sign Reading Time Taken Comments Blood Pressure 113/83 01/18/2018 1:07 PM CDT Pulse 65 01/18/2018 1:07 PM CDT Temperature 36.2 ??C (97.2 ??F) 01/18/2018 1:07 PM CD T Respiratory Rate 19 01/18/2018 1:07 PM CDT Oxygen Saturation 100% 01/18/2018 1:07 PM CDT Inhaled Oxygen Concentration - - Weight 106.1 kg (234 lb) 01/18/2018 10:38 AM CDT Height 154.9 cm (5' 1 ) 01/18/2018 10:38 AM CDT Body Mass Index 44.21 01/18/2018 10:38 AM CDT documented in this encounter Medications at Time of Discharge ibuprofen (ADVIL,MOTRIN) 200 mg tab/cap Take by mouth every 6 (six) hours as needed for pain. 11/08/2020 documented as of this encounter Discharge Disposition Disposition Code Departure Means Destination Discharge to home or self care documented in this encounter H&P Notes * Elisa Abbott MD - 01/18/2018 12:32 PM CDT History and Physical Date of visit: 01/18/2018 Subjective: Patient is a 52 y.o. female presented for evaluation for screening for colon cancer. Father had colon cancer. Past Medical History: Diagnosis Date ??? Chronic diarrhea ??? Depression Past Surgical History: Procedure Laterality Date ??? DILATION AND CURETTAGE OF UTERUS ??? THYROID LOBECTOMY Prescriptions Prior to Admission Medication Sig Dispense Refill Last Dose ??? ibuprofen (ADVIL,MOTRIN) 200 mg tab/cap Take by mouth every 6 (six) hours as needed for pain. Unknown at Unknown time No Known Allergies Social History Substance Use Topics ??? Smoking status: Never Smoker ??? Smokeless tobacco: Never Used ??? Alcohol use Not on file Family History Problem Relation Age of Onset ??? Colon cancer Father Physical Exam: Patient is awake and answers well. Eyes: no jaundice. Lungs: CTA anteriorly. ENT: no mouth ulcers. Abdomen: soft, no distention, no tenderness, bowel sounds positive. Extremities: no edema. Skin: no rash. GI IMPRESSION: 1. Screening for colon cancer GI PLAN/RECOMMENDATIONS: 1. colonoscopy Elisa Abbott MD documented in this encounter Procedure Notes * Elisa Abbott MD - 01/18/2018 11:57 AM CDTAssociated Order(s): COLONOSCOPY [facility] Patient Name: Elizabeth Oates Procedure Date: 01/18/2018 11:57 AM Date of : 1965 Admit Type: Outpatient Age: 52 Gender: Female Attending MD: Elisa Abbott MD Room: [facility] ENDOSCOPY CAPSULE Note Status: Finalized Patient Profile: 52 WF, father had multiple plyps and colon cancer. Procedure: Colonoscopy Indications: Screening in patient at increased risk: Family history of 1st-degree relative with colorectal cancer before age 60 years Referring MD: CHEO Feldman Providers: Elisa Abbott MD Impression: - External Hemorrhoids found on perianal exam. - The entire examined colon is normal. - No specimens collected. Recommendation: - Discharge patient to home. - Repeat colonoscopy in 5 years for screening purposes. Medicines: Monitored Anesthesia Care Complications: No immediate [...] Prior Anticoagulants: The patient has taken no previous anticoagulant or antiplatelet agents. ASA Grade Assessment: [...] consent document in the medical record. The scope was passed under direct vision. The Pediatric Colonoscope PCF-H190L [id number] was introduced through the anus and advanced to the the cecum, identified by appendiceal orifice and ileocecal valve. The colonoscopy was performed without difficulty. The patient tolerated the procedure well. The quality of the bowel preparation was good. Findings: Hemorrhoids were found on perianal exam. The colon (entire examined portion) appeared normal. No polyps and no mass lesions. The rectum and retroflexion in the rectum were normal. Electronically signed by Elisa Abbott M.D. Elisa Abbott MD 01/18/2018 12:37:50 PM Number of Addenda: 0 Note Initiated On: 01/18/2018 11:57 AM Procedure Code(s): --- Professional --- 39755, Colonoscopy, flexible; diagnostic, including collection of specimen(s) by brushing or washing, when performed (separate procedure) Diagnosis Code(s): --- Professional --- Z80.0, Family history of malignant neoplasm of digestive organs K64.9, Unspecified hemorrhoids CPT copyright 2017 [employer]. All rights reserved. The codes documented in this report are preliminary and upon com writer review may be revised to meet current compliance requirements. Recognized by the [employer] for promoting quality in endoscopy documented in this encounter Plan of Treatment Not on file documented as of this encounter Procedures Procedure Name Priority Date/Time Associated Diagnosis Comments COLONOSCOPY 01/18/2018 11:57 AM CDT COLONOSCOPY 01/18/2018 11:56 AM CDT colonoscopy screening diarrhea POCT HCG, URINE Routine 01/18/2018 10:57 AM CDT documented in this encounter Results * COLONOSCOPY (01/18/2018 11:57 AM CDT) Anatomical Region Laterality Modality Other Narrative Procedure Note Elisa Abbott MD - 01/18/2018 11:57 AM CDT [facility] Patient Name: Elizabeth Oates Procedure Date: 01/18/2018 11:57 AM Date of : 1965 Admit Type: Outpatient Age: 52 Gender: Female Attending MD: Elisa Abbott MD Room: [facility] ENDOSCOPY CAPSULE Note Status: Finalized Patient Profile: 52 WF, father had multiple plyps and colon cancer. Procedure: Colonoscopy Indications: Screening in patient at increased risk: Familyhistory of 1st-degree relative with colorectal cancer before age 60 years Referring MD: CHEO Feldman Providers: Elisa Abbott MD Impression: - External Hemorrhoids found on perianal exam. - The entire examined colon is normal. - No specimens collected. Recommendation: - Discharge patient to home. - Repeat colonoscopy in 5 years for screeningpurposes. Medicines: Monitored Anesthesia Care Complications: No immediate complications. Estimated Blood Loss: Estimated blood loss: none. Procedure: Pre-Anesthesia Assessment: - Prior to the procedure, a History and Physical was performed, and patient medications and allergieswere reviewed. The patient's tolerance of previous anesthesia was also reviewed. The risks and benefitsof the procedure and the sedation options and riskswere discussed with the patient. All questions were answered, and informed consent was obtained. Prior Anticoagulants: The patient has taken no previous anticoagulant or antiplatelet agents. ASA Grade Assessment: II - A patient with mild systemicdisease. After reviewing the risks and benefits, the patientwas deemed in satisfactory condition to undergo the procedure. The benefits, risks and alternatives of theprocedure and sedation were discussed and informed consent was obtained. All questions were answered. Please referto the signed informed consent document in the medical record. The scope was passed under direct vision.The Pediatric Colonoscope PCF-H190L [id number] was introduced through the anus and advanced to the the cecum, identified by appendiceal orifice andileocecal valve. The colonoscopy was performed without difficulty. The patient tolerated the procedurewell. The quality of the bowel preparation was good. Findings: Hemorrhoids were found on perianal exam. The colon (entire examined portion) appeared normal. No polyps and no mass lesions. The rectum and retroflexion in the rectum werenormal. Electronically signed by Elisa Abbott M.D. Elisa Abbott MD 01/18/2018 12:37:50 PM Number of Addenda: 0 Note Initiated On: 01/18/2018 11:57 AM Procedure Code(s): --- Professional --- 89534, Colonoscopy, flexible; diagnostic, including collection of specimen(s) by brushing or washing, when performed (separateprocedure) Diagnosis Code(s): --- Professional --- Z80.0, Family history of malignant neoplasm of digestive organs K64.9, Unspecified hemorrhoids CPT copyright 2017 [employer]. All rights reserved. The codes documented in this report are preliminary and upon com writer reviewmay be revised to meet current compliance requirements. Recognized by the [employer] for promoting quality in endoscopy Elisa Abbott MD ENDOSCOPY PROCEDURES Final Result * POCT hCG, urine (01/18/2018 10:57 AM CDT) HCG, ur, POC Negative Negative JENNIFER RODRIGUEZ ([place]) Urine 01/18/2018 10:5 7 AM CDT 01/18/2018 10:59 AM CDT Narrative JENNIFER RODRIGUEZ ([place]) - 01/18/2018 10:59 AM CDT us Elisa Abbott MD LAB POCT ORDERABLES - ALIYAH CE Final Result JENNIFER RODRIUGEZ ([place]) 1 [facility] Department [place] [address] documented in this encounter Visit Diagnoses Not on filedocumented in this encounter Administered Medications Inactive Administered Medications - up to 3 most recent administrations Medication Order MAR Action Action Date Dose Rate Site ondansetron (ZOFRAN) injection 4 mg 4 mg, intravenous, Every 30 min PRN, nausea, vomiting, Starting on Wed01/18/18 at 1115, For 2 doses, Recovery (GI), Indications: Nausea and VomitingIndications:Nausea and Vomiting sodium chloride 0.9% flush 0.5-20 mL 0.5-20 mL, intra-catheter, As needed, line care, Starting on Wed01/18/18 at 1116, Pre-Procedure (GI), Flush volume based on line type and size. Flush before and after each use. , Indications: FlushingIndications:Flushing sodium chloride 0.9% infusion 30 mL/hr, intravenous, Continuous, Starting on Wed01/18/18 at 1200, Pre-Procedure (GI) New Bag 01/18/2018 11:17 AM CDT 30 mL/hr 30 mL/hr sodium chloride 0.9% infusion 125 mL/hr, intravenous, Continuous, Starting on Wed01/18/18 at 1200, Recovery (GI) New Bag 01/18/2018 12:01 PM CDT documented in this encounter Historical Medications * This list may reflect changes made after this encounter. ibuprofen (ADVIL,MOTRIN) 200 mg tab/cap Take by mouth every 6 (six) hours as needed for pain. 11/08/2020 added in this encounter Active and Recently Administered Medications Times are shown in CDT. Continuous Medication Order 01/16/2018 01/17/2018 01/18/2018 sodium chloride 0.9% infusion 30 mL/hr, intravenous, Continuous, Starting on Wed01/18/18 at 1200, Pre-Procedure (GI) 1117 (New Bag - Prov ider: Chanelle Biggs RN) sodium chloride 0.9% infusion 125 mL/hr, intravenous, Continuous, Starting on Wed01/18/18 at 1200, Recovery (GI) 1201 (New Bag - Prov ider: Melvin Dudley MD) PRN Medication Order 01/16/2018 01/17/2018 01/18/2018 ondansetron (ZOFRAN) injection 4 mg 4 mg, intravenous, Every 30 min PRN, nausea, vomiting, Starting on Wed01/18/18 at 1115, For 2 doses, Recovery (GI), Indications: Nausea and Vomiting 1201 ([facility] Hold - Pro vider: Automatic Transfer Provider - Reason: Patient not available)1521 ([facility] Unhold - Provider: User Epic) sodium chloride 0.9% flush 0.5-20 mL 0.5-20 mL, intra-catheter, As needed, line care, Starting on Wed01/18/18 at 1116, Pre-Procedure (GI), Flush volume based on line type and size. Flush before and after each use. , Indications: Flushing 1201 ([facility] Hold - Pro vider: Automatic Transfer Provider - Reason: Patient not available)1521 ([facility] Unhold - Provider: User Epic) documented in this encounter Orders Medications Ordered That Travis ht Not Have Been Administered Count Last Ordered Date First Ordered Date ondansetron (ZOFRAN) injection 4 mg 1 01/18 sodium chloride 0.9% flush 0.5-20 mL 1 12/31 sodium chloride 0.9% infusion 1 01/18/2018 Discharge Count Last Ordered Date First Orde red Date DISCHARGE PATIENT 1 01/18/2018 documented in this encounter Care Teams Engraver Optical Frames Relationship Specialty Start Date End Date Tomasz Martinez PA [address] [place] [address] PCP - General 12/15/17 documented as of this encounter
--- OUTSIDE RECORDS SUMMARY | 2024-07-21 10:50 | XMS_ITS | Encounter Summary ---
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 Name Role Phone Unavailable Primary Care Provider Unavailabl e Encounter Details Date Type Department Care Team (Late st Contact Info) Description 09/18/2014 5:27 PM [employer] [employer] - 09/18/2014 8:55 PM [facility] [employer] Hospital Encounter [facility] Aminah Delgado Benign paroxysmal positional vertigo Social History Tobacco Use Types Packs/Day Years Used Date Smoking Tobacco: Never Assessed Comments Unknown Sex and Gender Information Value Date Recorded Sex Assigned at Not on file 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 [employer] Gender Identity Not on file Sexual Orientation Not on file documented as of this encounter Plan of Treatment Not on file documented as of this encounter Procedures Procedure Name Priority Date/Time Associated Diagnosis Comments CT HEAD WO CONTRAST Routine 09/18/2014 7 :44 PM [employer] [employer] [facility] SERUM BASIC METABOLIC PANEL Routine 09/18/2014 7:32 PM [employer] [employer] [facility] BLOOD WBC CELL MORPHOLOGIC EXAM, AUTO Routine 09/18/2014 7:32 PM [employer] [employer] [facility] BLOOD CELL COUNT (CBC) Routine 09/18/2014 7:32 PM [employer] DISCHARGE LABORATORY CUMULATIVE REPORT Routine 09/18/2014 12:00 AM [employer] documented in this encounter Results * CT Head WO Contrast (09/18/2014 7:44 PM [employer] [employer]) Anatomical Region Laterality Modality Head and Neck N/A Computed Tomogra phy 09/18/2014 7:44 PM [employer] Narrative 09/19/2014 10:49 AM [facility] [place] ?[id number] ??Acc#: ??[id number] DATE OF EXAM: ??Sep 18 2014 CLINICAL HISTORY: Acute onset of dizziness. RESULT: Helical CT scan of the head obtained noncontrast. No acute intracranial hemorrhage identified. ??No midline shift is noted. Brain stem cisterns are intact. ??Ventricles are normal in size. ??Cavum septum pellucidum represents normal variant. IMPRESSION: NO ACUTE INTRACRANIAL ABNORMALITY IDENTIFIED. REPORT CALLED TO DR. HOYT AT 09/18/14 AT 8:03 PM. Interpreting Physician: ??GEORGIA ANDREWS M.D. ??Read on: ??Sep 18 2014 ??8:04P Transcribed by: ??rosalie ??On: Sep 19 2014 ??9:24A Approved Electronically by: ??GEORGIA ANDREWS M.D. ??on: ??Sep 19 2014 10:49A Attending: ??AMINAH HOYT Requesting: ??Lai Requesting Fax: ??-- Attending Fax: ??-- Attending ID: ?? Requesting ID: ?? Report To 1 ID: ??[id number] Report To 1 Name: ??AMINAH HOYT Report To 1 FAX: ??-- NextGen Order #: Procedure Note Provider, MD Abdoulaye - 11/26/[place] [id number] Acc#: [id number] DATE OF EXAM: Sep 18 2014 CLINICAL HISTORY: Acute onset of dizziness. RESULT: Helical CT scan of the head obtained noncontrast. No acute intracranialhemorrhage identified. No midline shift is noted. Brain stem cisterns areintact. Ventricles are normal in size. Cavum septum pellucidumrepresents normal variant. IMPRESSION: NO ACUTE INTRACRANIAL ABNORMALITY IDENTIFIED. REPORT CALLED TO DR. HOYTAT 09/18/14 AT 8:03 PM. Interpreting Physician: GEORGIA ANDREWS M.D. Read on: Sep 18 2014 8:04P Transcribed by: rosalie On: Sep 19 2014 9:24A Approved Electronically by: GEORGIA ANDREWS M.D. on: Sep 19 2014 10:49A Attending: AMINAH HOYT Requesting: Elliot Hoyt Fax: -- Attending Fax: -- Attending ID: Requesting ID: Report To 1 ID: [id number] Report To 1 Name: HOYTOHI Report To 1 FAX: -- NextGen Order #: us Historical Provider MD GREGG CT PROCEDURES Final R esult * (ABNORMAL) Serum basic metabolic panel (09/18/2014 7:32 PM [facility] [employer]) BUN 6.4(L) 8.0 - 25.0 mg/dl HISTORICAL RESULTS Sodium 134(L) 135 - 145 mmol/L HISTORICAL RESULTS Potassium, sr 3.7 3.5 - 5.1 mmol/L HISTORICAL RESULTS Chloride 98 97 - 110 mmol/L HISTORICAL RESULTS CO2 27 22 - 32 mmol/L HISTORICAL RESULTS Glucose 124 70 - 199 mg/dl HISTORICAL RESULTS Comment: Note:The glucose is assumed non fasting Fastin-99 mg/dl Random: 70-199 mg/dl Either a fasting glucose > 126 mg/dL or a random glucose > 200 mg/dL plus symptoms is diagnostic of diabetes when confirmed on another day. Fasting values > 100 mg/dl but < 125 mg/dL are diagnostic of impaired fasting glucose. Creatinine 0.50(L) 0.60 - 1.10 mg/dl HISTORICAL RESULTS BUN/creat ratio 13 10 - 20 HIST ORICAL RESULTS A. gap 13 7 - 14 mmol/L HISTORICAL RESULTS Osmo, calc 267(L) 275 - 295 mOsm/kg HISTORICAL RESULTS Calcium 9.1 8.6 - 10.2 mg/dl HISTORICAL RESULTS Serum 09/18/2014 7:32 PM [employer] [employer] Aminah Hoyt LAB BLOOD ORDERABLES Final Resul t HISTORICAL RESULTS * (ABNORMAL) Blood cell count (CBC) (09/18/2014 7:32 PM [employer] [employer]) WBC 8.1 4.0 - 10.5 K/cumm HISTORICAL RESULTS RBC 4.04(L) 4.20 - 5.40 M/cumm HISTORICAL RESULTS Hgb 11.4(L) 12.0 - 16.0 g/dl HISTORICAL RESULTS Hct 36.1(L) 37.0 - 47.0 % HISTORICAL RESULTS MCV 89.4 77.0 - 97.0 fl HISTORICAL RESULTS MCH 28.2 23.0 - 34.0 pg HISTORICAL RESULTS MCHC 31.6(L) 32.0 - 36.0 g/dl HISTORICAL RESULTS Rdw 14.2 11.5 - 14.5 % HISTORICAL RESULTS Platelets 356 150 - 400 K/cumm HISTORICAL RESULTS MPV 10.2 7.4 - 10.4 fl HISTORICAL RESULTS Blood specimen (specimen) 09/18/2014 7:32 PM [employer] [employer] Aminah Andres Hoyt LAB BLOOD ORDERABLES Final Resul t HISTORICAL RESULTS * (ABNORMAL) Blood WBC cell morphologic exam, auto (09/18/2014 7:32 PM [facility] [employer]) Lymphocytes 12.2(L) 25.0 - 33.0 % HISTORICAL RESULTS Monos 5.9 0.0 - 13.0 % HISTORICAL RESULTS Neutrophils 80.2(H) 54.0 - 69.0 % HISTORICAL RESULTS Eosinophils 1.4 0.0 - 10.0 % HISTORICAL RESULTS Basophils 0.2 0.0 - 1.0 % HISTORICAL RESULTS Immature granulocytes 0.1 0.0 - 1.0 % HISTORICAL RESULTS Lymphocytes, abs 1.0(L) 1.2 - 3.4 K/cumm HISTORICAL RESULTS Monocytes, absolute 0.5(L) 1.1 - 1.9 K/cumm HISTORICAL RESULTS Neutrophils, abs 6.5 1.4 - 6.5 K/cumm HISTORICAL RESULTS Eosinophils, abs 0.1 0.0 - 0.7 cells/cum m HISTORICAL RESULTS Basophils, abs 0.0 0.0 - 0.2 K/cumm HISTORICAL RESULTS Immature granulocyte, abs 0.0 0.0 - 0.0 K/cumm HISTORICAL RESULTS Blood specimen (specimen) 09/18/2014 7:32 PM [facility] [employer] [facility] [facility] Aminah Andres Hoyt LAB BLOOD ORDERABLES Final Resul t HISTORICAL RESULTS * Discharge Laboratory Cumulative Report (09/18/2014 12:00 AM [employer] [employer]) 09/18/2014 Narrative HISTORICAL RESULTS - 09/19/2014 12:36 AM [facility] [employer] [facility] [facility] Patient No: [id number] ? [facility] Patient Name: ELIZABETH SOTO ? [facility] Age: 49 YRS ?: 1965 ?Sex:F ?[address] )[id number] ?? Adm Dt: 09/18/2014 ?[place], [place] ??[id number] Created: 09/19/2014 ??0036 ?? Pt. Type: E ? Discharge Dt: 09/18/2014 ? Pathologists: Sherley Schmitz MD Admit Attend Dr: AMINAH HOYT MD ? BLOOD CELL COUNTS ?Collection Date: ?09/18/14 ?Collection Time: ?1932 ? Ref Range: ?? Units: [4.00-10.50] /CMM ? WBC X 10^3 ?8.14 [4.20-5.40] ??/CMM ? RBC X 10^6 ?4.04 L [12.0-16.0] ??G/DL ? HGB ? 11.4 L [37.0-47.0] ??% ?HCT ? 36.1 L [77.0-97.0] ??FL ? MCV ? 89.4 [23.0-34.0] ??PG ? MCH ? 28.2 [32.0-36.0] ??% ?MCHC ?31.6 L [11.5-14.5] ??% ?RDW ? 14.2 [150-400] ?? /CMM ? PLT X 10^3 ? 356 ?BLOOD CELL DIFFERENTIAL ?Collection Date: ?15 ?Collection Time: ?1932 ? Ref Range: ?? Units: [54.0-69.0] ??% ?NEUTROPHILS ? 80.2 H [25.0-33.0] ??% ?LYMPHOCYTES ? 12.2 L [0.0-13.0] ??% ?MONOCYTES ?5.9 [0.0-10.0] ??% ?EOSINOPHILS ?1.4 [0.0-1.0] ?? % ?BASOPHILS ?0.2 ? /CMM ? A LYMPHOCYTE ? 1.0 L [0.0-1.0] ?? % ?IMM GRAN % ? 0.1 [0.00-0.02] ??/CMM ? A IMM GRAN ?0.01 [1.1-1.9] ?? /CMM ? A MONOCYTE ? 0.5 L [1.4-6.5] ?? /CMM ? A NEUTROPHIL ? 6.5 [0.0-0.7] ?? /CMM ? A EOSINOPHIL ? 0.1 [0.0-0.2] ?? /CMM ? A BASOPHIL ? 0.0 Footnotes and Symbols: L = Low, H = High ?? CONTINUED ?Page: ?? 1 Patient No: [id number] ? [facility] Patient Name: ELIZABETH SOTO ? [facility] Age: 49 YRS ?: 1965 ?Sex:F ?[address] )[id number] ?? Adm Dt: 09/18/2014 ?[place], [place] ??[id number] Created: 09/19/2014 ??0036 ?? Pt. Type: E ? Discharge Dt: 09/18/2014 ? Pathologists: Sherley Schmitz MD Admit Dr. Gore Dr: AMINAH HOYT MD ? GENERAL CHEMISTRY ?Collection Date: ?09/18/14 ?Collection Time: ?1932 ? Ref Range: ?? Units: [135-145] ?? MMOL/L ? SODIUM ? 134 L [3.5-5.1] ?? MMOL/L ? POTASSIUM ?3.7 [97.0-110.0] MMOL/L ? CHLORIDE ?98.0 [22.0-32.0] ??MMOL/L ? TOTAL CO2 ? 26.7 ?? [7-14] ?MMOL/L ? ANION GAP ? 13 ??[70-199] ?? MG/DL ?GLUCOSE ?124 f [275-295] ?? MOSM/K ? CALCULATED OSMO ?267 L [8.6-10.2] ??MG/DL ?CALCIUM ?9.1 [8.0-25.0] ??MG/DL ?BUN ?6.4 L ??[10-20] ? B/C RATIO ? 13 [0.60-1.10] ??MG/DL ?CREATININE ?0.50 L Footnotes and Symbols: L = Low, f = Footnote GLUCOSE (09/12/14 -- Current) Note:The glucose is assumed non fasting Fastin-99 mg/dl Random: 70-199 mg/dl Either a fasting glucose > 126 mg/dL or a random glucose > 200 mg/dL plus symptoms is diagnostic of diabetes when confirmed on another day. Fasting values > 100 mg/dl but < 125 mg/dL are diagnostic of impaired fasting glucose. ?? END OF CHART ? Page: ?? 2 us Historical Provider LAB BLOOD ORDERABLES Phyllis andres Result HISTORICAL RESULTS documented in this encounter Visit Diagnoses Diagnosis Benign paroxysmal positional vertigo documented in this encounter
--- OUTSIDE RECORDS SUMMARY | 2024-07-21 10:50 | XMS_ITS | Encounter Summary ---
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
--- OUTSIDE RECORDS SUMMARY | 2024-07-21 10:50 | XMS_ITS | Encounter Summary ---
Author Organization [facility] Healthcare Address [address] [place] [address] Care Team Providers Care Armature Rewinder Name Role Phone Unavailable Primary Care Provider Unavailabl e Encounter Details Date Type Department Care Team (Late st Contact Info) Description 10/07/2016 5:32 PM RESEARCH AND DEVELOPMENT ENGINEER - 10/07/2016 7:31 PM RESEARCH AND DEVELOPMENT ENGINEER Emergency [facility] Emergency Department [address] [place] [address] Galilea Roberson Jr., MD [address] [place] [address] [place] [address] Discharge Disposition: Discharge to home or self care Social History Tobacco Use Types Packs/Day Years Used Date Smoking Tobacco: Never Assessed Comments Unknown Sex and Gender Information Value Date Recorded Sex Assigned at Not on file 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 RESEARCH AND DEVELOPMENT ENGINEER Gender Identity Not on file Sexual Orientation Not on file documented as of this encounter Discharge Disposition Disposition Code Departure Means Destination Discharge to home or self care documented in this encounter Plan of Treatment Not on file documented as of this encounter Procedures Procedure Name Priority Date/Time Associated Diagnosis Comments XR CHEST PA LATERAL 2 VIEWS Routine 10/07/2016 7:12 PM RESEARCH AND DEVELOPMENT ENGINEER documented in this encounter Results * XR Chest Pa Lateral 2 Vw (10/07/2016 7:12 PM RESEARCH AND DEVELOPMENT ENGINEER) Anatomical Region Laterality Modality Body, Chest N/A Radiographic Annamarie ging 10/07/2016 7:12 PM RESEARCH AND DEVELOPMENT ENGINEER Narrative 10/08/2016 10:52 AM RESEARCH AND DEVELOPMENT ENGINEER XR Chest 2 Views ?[id number] ??Acc#: ??[id number] DATE OF EXAM: ??Mar ??2016 CLINICAL HISTORY: Cough. RESULT: PA and lateral projections obtained, compared with 08/15/13. ??Cardiac silhouette size is upper range of normal. ??Pulmonary vascularity within the range of normal. ??Lungs are free of confluent infiltrates. Costophrenic angles are sharp. ??Mild elevation right hemidiaphragm, as previously. ??A small opacity right basilar region is fairly dense, suggesting granuloma. ??However this is not evident previously. ??Follow up may be beneficial. ??Degenerative changes thoracic spine. IMPRESSION: 1. NO ACUTE PULMONARY DISEASE. 2. SMALL NODULAR OPACITY RIGHT BASILAR REGION. ??SOMEWHAT DENSE, POSSIBLE GRANULOMA. ??NOT EVIDENT PREVIOUSLY. ??FOLLOW UP MAY BE BENEFICIAL. Interpreting Physician: ??GEORGIA ANDREWS M.D. ??Read on: ??Sep ??8 2016 ??7:52P Transcribed by: ??grisel ??On: Sep ??8 2017 ??8:16P Approved Electronically by: ??GEORGIA ANDREWS M.D. ??on: ??Sep ??9 2016 10:52A Attending: ??GALILEA ROBERSON Requesting: ??INGRID APPLE Requesting Fax: ??-- Attending Fax: ??-- Attending ID: ??[id number] Requesting ID: ??[id number] Report To 1 ID: ??[id number] Report To 1 Name: ??GALILEA ROBERSON Report To 1 FAX: ??-- NextGen Order #: Procedure Note Provider, MD Abdoulaye - 12/09/2016 XR Chest 2 Views [id number] Acc#: [id number] DATE OF EXAM: Oct 07 2016 CLINICAL HISTORY: Cough. RESULT: PA and lateral projections obtained, compared with 08/15/13. Cardiacsilhouette size is upper range of normal. Pulmonary vascularity withinthe range of normal. Lungs are free of confluent infiltrates.Costophrenic angles are sharp. Mild elevation right hemidiaphragm, aspreviously. A small opacity right basilar region is fairly dense,suggesting granuloma. However this is not evident previously. Follow upmay be beneficial. Degenerative changes thoracic spine. IMPRESSION: 1. NO ACUTE PULMONARY DISEASE. 2. SMALL NODULAR OPACITY RIGHT BASILAR REGION. SOMEWHAT DENSE, POSSIBLEGRANULOMA. NOT EVIDENT PREVIOUSLY. FOLLOW UP MAY BE BENEFICIAL. Interpreting Physician: GEORGIA ANDREWS M.D. Read on: Oct 07 2016 7:52P Transcribed by: grisel On: Oct 07 2016 8:16P Approved Electronically by: GEORGIA ANDREWS M.D. on: Oct 08 2016 10:52A Attending: GALILEA ROBERSON Requesting: INGRID APPLE Requesting Fax: -- Attending Fax: -- Attending ID: [id number] Requesting ID: [id number] Report To 1 ID: [id number] Report To 1 Name: GALILEA ROBERSON Report To 1 FAX: -- NextGen Order #: Historical Provider MD GREGG XR PROCEDURES Final R esult documented in this encounter Visit Diagnoses Not on filedocumented in this encounter
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
--- OUTSIDE RECORDS SUMMARY | 2024-07-21 10:50 | XMS_ITS | Encounter Summary ---
Author Organization [facility] Healthcare Address [address] [place] [address] Care Team Providers Care Chuck Boner Name Role Phone Unavailable Primary Care Provider Unavailabl e Encounter Details Date Type Department Care Team (Late st Contact Info) Description 09/08/2012 1:56 PM STATISTICS PROFESSOR - 09/08/2012 11:59 PM STATISTICS PROFESSOR Hospital Encounter [facility] Lonnie Bustillos MD [address] [place] [address] Irregular menstrual cycle Social History Tobacco Use Types Packs/Day Years Used Date Smoking Tobacco: Never Assessed Comments Unknown Sex and Gender Information Value Date Recorded Sex Assigned at Not on file 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 STATISTICS PROFESSOR Gender Identity Not on file Sexual Orientation Not on file documented as of this encounter Plan of Treatment Not on file documented as of this encounter Procedures Procedure Name Priority Date/Time Associated Diagnosis Comments US PELVIS COMPLETE Routine 09/08/2012 2: 53 PM STATISTICS PROFESSOR US TRANSVAGINAL Routine 09/08/2012 2:53 PM STATISTICS PROFESSOR documented in this encounter Results * US Pelvis Complete (09/08/2012 2:53 PM STATISTICS PROFESSOR) Anatomical Region Laterality Modality Pelvis N/A Ultrasound 09/08/2012 2:53 PM STATISTICS PROFESSOR Narrative 09/09/2012 8:10 AM STATISTICS PROFESSOR US Pelvis ??Acc#: ??[id number] US Transvaginal ??Acc#: ??[id number] DATE OF EXAM: ??Fe ??2012 CLINICAL HISTORY: Irregular menstruation. ??LMP 1/3/13. RESULT: The study was performed with transabdominal and endovaginal imaging. Neither ovary is visualized. There are no free pelvic fluid collections. The uterus measures 9.9 x 7.7 x 9.0 cm. ??In the distal body of the uterus the EMC thickness is approximately 6.7 mm, but it is very difficult to see the majority of the endometrial echo complex. ??There appears to be an approximately 5 cm mass whose margins are very ill defined within the uterine body and fundal region. ??This is believed to significantly distort the EMC. ??Uncertain if this could be a uterine fibroid or possibly a large polypoid lesion within the endometrial canal. ??In this particular case MRI would be very useful to better define the anatomy given the limitations on this study. IMPRESSION: 1. NEITHER OVARY IDENTIFIED. 2. NO FREE PELVIC FLUID. 3. THE EMC IN THE DISTAL PORTION OF THE BODY OF THE UTERUS IS NORMAL IN THICKNESS AT 6.7 MM, BUT THE MAJORITY OF THE ENDOMETRIAL ECHO COMPLEX IS SIMPLY NOT ADEQUATELY SEEN ON THIS STUDY. ??THERE IS A HETEROGENEOUS ILL DEFINED APPROXIMATELY 5 CM MASS IN THE FUNDAL AND UTERINE BODY REGION. UNCERTAIN IF THIS REPRESENTS A LARGE UTERINE FIBROID OR POSSIBLY A LARGE ENDOMETRIAL CANAL MASS. ??IN THIS PARTICULAR CASE MRI WOULD LIKELY BE OF GREAT VALUE IN TERMS OF BETTER DEFINING ANATOMY THAT IS NOT OPTIMALLY VISUALIZED ON THIS PARTICULAR STUDY. RESULT: \F\ IMPRESSION: ?\F\ Interpreting Physician: ??PATRICIA LAUGHLIN M.D. ??Read on: ??Feb ??7 2012 ??3:04P Transcribed by: ??vam ??On: Sep ??7 2012 ??6:13P Approved Electronically by: ??PATRICIA LAUGHLIN M.D. ??on: ??Feb ??8 2012 ??8:10A Ordering DR: DR LONNIE FONSECA Attending DR: LONNIE FONSECA Procedure Note Provider, MD Abdoulaye - 11/26/2016 US Pelvis Acc#: [id number] US Transvaginal Acc#: [id number] DATE OF EXAM: Sep 08 2012 CLINICAL HISTORY: Irregular menstruation. LMP 08/04/12. RESULT: The study was performed with transabdominal and endovaginal imaging.Neither ovary is visualized. There are no free pelvic fluid collections.The uterus measures 9.9 x 7.7 x 9.0 cm. In the distal body of the uterusthe EMC thickness is approximately 6.7 mm, but it is very difficult to seethe majority of the endometrial echo complex. There appears to be anapproximately 5 cm mass whose margins are very ill defined within theuterine body and fundal region. This is believed to significantly distortthe EMC. Uncertain if this could be a uterine fibroid or possibly a largepolypoid lesion within the endometrial canal. In this particular case MRIwould be very useful to better define the anatomy given the limitations onthis study. IMPRESSION: 1. NEITHER OVARY IDENTIFIED. 2. NO FREE PELVIC FLUID. 3. THE EMC IN THE DISTAL PORTION OF THE BODY OF THE UTERUS IS NORMAL INTHICKNESS AT 6.7 MM, BUT THE MAJORITY OF THE ENDOMETRIAL ECHO COMPLEX ISSIMPLY NOT ADEQUATELY SEEN ON THIS STUDY. THERE IS A HETEROGENEOUS ILLDEFINED APPROXIMATELY 5 CM MASS IN THE FUNDAL AND UTERINE BODY REGION.UNCERTAIN IF THIS REPRESENTS A LARGE UTERINE FIBROID OR POSSIBLY A LARGEENDOMETRIAL CANAL MASS. IN THIS PARTICULAR CASE MRI WOULD LIKELY BE OFGREAT VALUE IN TERMS OF BETTER DEFINING ANATOMY THAT IS NOT OPTIMALLYVISUALIZED ON THIS PARTICULAR STUDY. RESULT: \F\ IMPRESSION: \F\ Interpreting Physician: PATRICIA LAUGHLIN M.D. Read on: Sep 08 2012 3:04P Transcribed by: grisel On: Sep 08 2012 6:13P Approved Electronically by: PATRICIA LAUGHLIN M.D. on: Sep 09 2012 8:10A Ordering DR: DR LONNIE FONSECA Attending DR: LONNIE FONSECA us Historical Provider MD GREGG US PROCEDURES Final R esult * US Transvaginal (09/08/2012 2:53 PM STATISTICS PROFESSOR) Anatomical Region Laterality Modality Pelvis N/A Ultrasound 09/08/2012 2:53 PM STATISTICS PROFESSOR Narrative 09/09/2012 8:10 AM STATISTICS PROFESSOR US Pelvis ??Acc#: ??[id number] US Transvaginal ??Acc#: ??[id number] DATE OF EXAM: ??Sep ??2012 CLINICAL HISTORY: Irregular menstruation. ??LMP 08/04/12. RESULT: The study was performed with transabdominal and endovaginal imaging. Neither ovary is visualized. There are no free pelvic fluid collections. The uterus measures 9.9 x 7.7 x 9.0 cm. ??In the distal body of the uterus the EMC thickness is approximately 6.7 mm, but it is very difficult to see the majority of the endometrial echo complex. ??There appears to be an approximately 5 cm mass whose margins are very ill defined within the uterine body and fundal region. ??This is believed to significantly distort the EMC. ??Uncertain if this could be a uterine fibroid or possibly a large polypoid lesion within the endometrial canal. ??In this particular case MRI would be very useful to better define the anatomy given the limitations on this study. IMPRESSION: 1. NEITHER OVARY IDENTIFIED. 2. NO FREE PELVIC FLUID. 3. THE EMC IN THE DISTAL PORTION OF THE BODY OF THE UTERUS IS NORMAL IN THICKNESS AT 6.7 MM, BUT THE MAJORITY OF THE ENDOMETRIAL ECHO COMPLEX IS SIMPLY NOT ADEQUATELY SEEN ON THIS STUDY. ??THERE IS A HETEROGENEOUS ILL DEFINED APPROXIMATELY 5 CM MASS IN THE FUNDAL AND UTERINE BODY REGION. UNCERTAIN IF THIS REPRESENTS A LARGE UTERINE FIBROID OR POSSIBLY A LARGE ENDOMETRIAL CANAL MASS. ??IN THIS PARTICULAR CASE MRI WOULD LIKELY BE OF GREAT VALUE IN TERMS OF BETTER DEFINING ANATOMY THAT IS NOT OPTIMALLY VISUALIZED ON THIS PARTICULAR STUDY. RESULT: \F\ IMPRESSION: ?\F\ Interpreting Physician: ??PATRICIA LAUGHLIN M.D. ??Read on: ??Feb ??7 2012 ??3:04P Transcribed by: ??vam ??On: Sep ??7 2012 ??6:13P Approved Electronically by: ??PATRICIA LAUGHLIN M.D. ??on: ??Feb ??8 2012 ??8:10A Ordering DR: DR LONNIE FONSECA Attending DR: LONNIE FONSECA Procedure Note Provider, MD Abdoulaye - 11/26/2016 US Pelvis Acc#: [id number] US Transvaginal Acc#: [id number] DATE OF EXAM: Sep 08 2012 CLINICAL HISTORY: Irregular menstruation. LMP 08/04/12. RESULT: The study was performed with transabdominal and endovaginal imaging.Neither ovary is visualized. There are no free pelvic fluid collections.The uterus measures 9.9 x 7.7 x 9.0 cm. In the distal body of the uterusthe EMC thickness is approximately 6.7 mm, but it is very difficult to seethe majority of the endometrial echo complex. There appears to be anapproximately 5 cm mass whose margins are very ill defined within theuterine body and fundal region. This is believed to significantly distortthe EMC. Uncertain if this could be a uterine fibroid or possibly a largepolypoid lesion within the endometrial canal. In this particular case MRIwould be very useful to better define the anatomy given the limitations onthis study. IMPRESSION: 1. NEITHER OVARY IDENTIFIED. 2. NO FREE PELVIC FLUID. 3. THE EMC IN THE DISTAL PORTION OF THE BODY OF THE UTERUS IS NORMAL INTHICKNESS AT 6.7 MM, BUT THE MAJORITY OF THE ENDOMETRIAL ECHO COMPLEX ISSIMPLY NOT ADEQUATELY SEEN ON THIS STUDY. THERE IS A HETEROGENEOUS ILLDEFINED APPROXIMATELY 5 CM MASS IN THE FUNDAL AND UTERINE BODY REGION.UNCERTAIN IF THIS REPRESENTS A LARGE UTERINE FIBROID OR POSSIBLY A LARGEENDOMETRIAL CANAL MASS. IN THIS PARTICULAR CASE MRI WOULD LIKELY BE OFGREAT VALUE IN TERMS OF BETTER DEFINING ANATOMY THAT IS NOT OPTIMALLYVISUALIZED ON THIS PARTICULAR STUDY. RESULT: \F\ IMPRESSION: \F\ Interpreting Physician: PATRICIA LAUGHLIN M.D. Read on: Sep 08 2012 3:04P Transcribed by: grisel On: Sep 08 2012 6:13P Approved Electronically by: PATRICIA LAUGHLIN M.D. on: Sep 09 2012 8:10A Ordering DR: DR LONNIE FONSECA Attending DR: LONNIE FONSECA us Historical Provider MD GREGG US PROCEDURES Final R esult documented in this encounter Visit Diagnoses Diagnosis Irregular menstrual cycle documented in this encounter
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
--- OUTSIDE RECORDS SUMMARY | 2024-07-21 10:50 | XMS_ITS | Encounter Summary ---
Author Organization [facility] Healthcare Address [address] [place] [address] Care Team Providers Care Behavioral Health Clinician Name Role Phone Unavailable Primary Care Provider Unavailabl e Encounter Details Date Type Department Care Team (Late st Contact Info) Description 01/30/2011 7:50 AM CDT - 01/30/2011 8:30 AM CDT Hospital Encounter [facility] Dillon Lopes [address] [place] [address] Contact dermatitis and other eczema Social History Tobacco Use Types Packs/Day Years Used Date Smoking Tobacco: Never Assessed Comments Unknown Sex and Gender Information Value Date Recorded Sex Assigned at Not on file 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
--- OUTSIDE RECORDS SUMMARY | 2024-07-21 10:50 | XMS_ITS | Encounter Summary ---
Author Organization 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
--- OUTSIDE RECORDS SUMMARY | 2024-07-21 10:50 | XMS_ITS | Encounter Summary ---
Author Organization [facility] Healthcare Address [address] [place] [address] Care Team Providers Care Foreign Language Stenographer Name Role Phone Tomasz Martinez Primary Care Provider [phone] Encounter Details Date Type Department Care Team (Late st Contact Info) Description 01/18/2018 11:20 AM CDT - 01/18/2018 11:50 AM CDT Surgery [address] [address] Elisa Abbott MD [address] [place] [address] Colonoscopy Surgery Details Date/Time Status Location OR Service Patient Class Case Class Case Type Trauma Case? 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 Gender Identity Not on file Sexual Orientation Not on file documented as of this encounter Last Filed Vital Signs Vital Sign Reading Time Taken Comments Blood Pressure 124/81 01/18/2018 10:38 AM CDT Pulse 80 01/18/2018 10:38 AM CDT Temperature 35.7 ??C (96.3 ??F) 01/18/2018 10:38 AM C DT Respiratory Rate 20 01/18/2018 10:38 AM CDT Oxygen Saturation 97% 01/18/2018 10:38 AM CDT Inhaled Oxygen Concentration - - [...] - 01/18/2018 11:57 AM CDTAssociated Order(s): COLONOSCOPY [facility] Patient Name: Elizabeth Oates Procedure Date: 01/18/2018 11:57 AM Date of : 1965 Admit Type: Outpatient Age: 52 Gender: Female Attending MD: Elisa Abbott MD Room: [facility] CAPSULE Note Status: Finalized Patient Profile: 52 [...] under direct vision. The Pediatric Colonoscope PCF-H190L [id number] was introduced through the anus and advanced [...] 11:57 AM Procedure Code(s): --- Professional --- 39263, Colonoscopy, flexible; diagnostic, including collection of specimen(s) by brushing or washing, when performed (separate procedure) Diagnosis Code(s): --- Professional --- Z80.0, Family history of malignant neoplasm of digestive organs K64.9, Unspecified hemorrhoids CPT copyright 2017 [employer]. All rights reserved. The codes documented in this report are preliminary and upon effervescent salts compounder review may be revised to meet current compliance requirements. Recognized by the [employer] Society [employer] for promoting quality [...] Abbott MD - 01/18/2018 11:[address] [facility] Patient Name: Elizabeth Oates Procedure Date: 01/18/2018 11:57 AM Date of : 1965 Admit Type: Outpatient Age: 52 Gender: Female Attending MD: Elisa Abbott MD Room: [facility] CAPSULE Note Status: Finalized Patient Profile: 52 WF, father had multiple plyps and colon cancer. Procedure: Colonoscopy Indications: Screening in patient at increased risk: Familyhistory of 1st-degree relative with colorectal cancer before age 60 years Referring MD: Tomasz Martinez PA Providers: Elisa Abbott MD Impression: - External [...] passed under direct vision.The Pediatric Colonoscope PCF-H190L [id number] was introduced through the anus and advanced [...] 11:57 AM Procedure Code(s): --- Professional --- 86855, Colonoscopy, flexible; diagnostic, including collection of specimen(s) by brushing or washing, when performed (separateprocedure) Diagnosis Code(s): --- Professional --- Z80.0, Family history of malignant neoplasm of digestive organs K64.9, Unspecified hemorrhoids CPT copyright 2017 [employer]. All rights reserved. The codes documented in this report are preliminary and upon effervescent salts compounder reviewmay be revised to meet current compliance requirements. Recognized by the [employer] for promoting quality in endoscopy Elisa Abbott MD ENDOSCOPY PROCEDURES Final Result * POCT hCG, urine (01/18/2018 10:57 AM CDT) HCG, ur, POC Negative Negative JENNIFER RODRIGUEZ ([place]) Urine 01/18/2018 10:5 7 AM CDT 01/18/2018 10:59 AM CDT Narrative JENNIFER RODRIGUEZ ([place]) - 01/18/2018 10:59 AM CDT Elisa Abbott MD LAB POCT ORDERABLES - ALIYAH CE Final Result JENNIFER RODRIGUEZ ([place]) [address] [facility] Department [place] [address] documented in this encounter Visit Diagnoses Not [...] Recovery (GI), Indications: Nausea and Vomiting 1201 ([facility] Hold - Pro vider: Automatic Transfer Provider - Reason: Patient not available)1521 ([facility] Unhold - Provider: User Epic) sodium chloride 0.9% flush 0.5-20 mL 0.5-20 mL, intra-catheter, As needed, line care, Starting on Wed01/18/18 at 1116, Pre-Procedure (GI), Flush volume based on line type and size. Flush before and after each use. , Indications: Flushing 1201 ([facility] Hold - Pro vider: Automatic Transfer Provider - Reason: Patient not available)1521 ([facility] Unhold - Provider: User Epic) documented in [...] 01/18/2018 documented in this encounter Care Teams Foreign Language Stenographer Relationship Specialty Start Date End Date Tomasz Martinez PA [address] [place] [address] PCP - General 12/15/17 documented as of this encounter
--- OUTSIDE RECORDS SUMMARY | 2024-07-21 10:50 | XMS_ITS | Encounter Summary ---
Author Organization [facility] Healthcare Address [address] [place] [address] Care Team Providers Care Livestock Rancher Name Role Phone Unavailable Primary Care Provider Unavailabl e Encounter Details Date Type Department Care Team (Late st Contact Info) Description 03/30/2014 10:10 AM CDT - 03/30/2014 11:39 AM CDT Hospital Encounter [facility] Bipin Suh MD [address] [place] [address] Acute upper respiratory infection; Viral infection in conditions classified elsewhere and of unspecified site Social History Tobacco Use Types Packs/Day Years Used Date Smoking Tobacco: Never Assessed Comments Unknown Sex and Gender Information Value Date Recorded Sex Assigned at Not on file 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 KAIWHAKAHAERE Gender Identity Not on file Sexual Orientation Not on file documented as of this encounter Plan of Treatment Not on file documented as of this encounter Visit Diagnoses Diagnosis Acute upper respiratory infection Acute upper respiratory infections of unspecified site Viral infection in conditions classified elsewhere and of unspecified site documented in this encounter
--- OUTSIDE RECORDS SUMMARY | 2024-07-21 10:50 | XMS_ITS | Encounter Summary ---
Author Organization [facility] Healthcare Address [address] [place] [address] Care Team Providers Care Plant Custodian Name Role Phone Unavailable Primary Care Provider Unavailabl e Encounter Details Date Type Department Care Team (Late st Contact Info) Description 03/31/2009 11:30 AM CDT - 03/31/2009 12:32 PM CDT Hospital Encounter [facility] Biipn Suh MD [address] [place] [address] Calcaneal spur Social History Tobacco Use Types Packs/Day Years Used Date Smoking Tobacco: Never Assessed Comments Unknown Sex and Gender Information Value Date Recorded Sex Assigned at Not on file 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
--- OUTSIDE RECORDS SUMMARY | 2024-07-21 10:50 | XMS_ITS | Encounter Summary ---
Author Organization [facility] Healthcare Address [address] [place] [address] Care Team Providers Care Poultry Inspector Name Role Phone Unavailable Primary Care Provider Unavailabl e Encounter Details Date Type Department Care Team (Late st Contact Info) Description 02/10/2010 11:38 AM CDT - 02/10/2010 2:08 PM CDT Hospital Encounter [facility] Bipin Suh MD [address] [facility] [address] [place] [address] Sprain of back; Other overexertion and strenuous and repetitive movements or loads Social History Tobacco Use Types Packs/Day Years Used Date Smoking Tobacco: Never Assessed Comments Unknown Sex and Gender Information Value Date Recorded Sex Assigned at Not on file 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
--- OUTSIDE RECORDS SUMMARY | 2024-07-21 10:50 | XMS_ITS | Encounter Summary ---
Author Organization [facility] Healthcare Address [address] [place] [address] Care Team Providers Care Perioperative Assistant Name Role Phone Tomasz Martinez Primary Care Provider [phone] Encounter Details Date Type Department Care Team (Late st Contact Info) Description 01/18/2018 12:08 PM CDT Anesthesia Event [facility] [address] [place] [address] [place] [id number] [id number] Anesthesia Record Procedure Summary Procedure Name Responsible Anesthesiologist Anesthesia Start Time Anesthesia Stop Time Colonoscopy Melvin Dudley MD 01/18/18 1208 0 01/18/18 1228 Events Date Time Event Comment 01/18/2018 1154 1201 In Room 1208 An Start 1208 An Start Data 1208 Start Supplemental O2 1208 Patient Positioned Laterally 1208 An Induction The patient was reevaluated immediately before moderate or deep sedation use and before anesthesia induction. 1208 Anesthesia Ready 1219 Proc Start 1228 an stop data 1228 An Stop 1229 Proc Fin 1229 Out of Room Meds Name Total lidocaine (cardiac) syringe 2 % 40 mg propofol 190 mg sodium chloride 0.9% infusion 0 mL * Agents Name O2 * Blood No blood administrations on file. Lines, Drains, and Airways Type Details Placement Removal Peripheral IV Placement Date: 12/31 04/19; Placement Time: 1125; Catheter Size: 22 G; Orientation: Right; Location: Hand; Site Prep: Chlorhexidine; Technique: Anatomical landmarks; Inserted by: Esthela JOHNSON (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 Gender Identity Not on file Sexual Orientation Not on file documented as of this encounter OR Notes * Anesthesia Postprocedure Evaluation - Melvin Dudley MD - 01/18/2018 12:49 PM CDT Patient: Elizabeth Oates Procedure Summary Date: 01/18/18 Room / Location: REPLACED BY [facility] / REPLACED BY [facility] Anesthesia Start: 1208 Anesthesia Stop: 1228 Procedure: Colonoscopy (N/A ) Diagnosis: (colonoscopy screening diarrhea) Provider: Elisa Abbott MD Responsible Provider: Melvin Dudley MD Anesthesia Type: general/TIVA ASA Status: 3 BP 113/83 Pulse 65 Temp 36.2 ??C (97.2 ??F) (Temporal) Resp 19 Ht 154.9 cm (5' 1 ) Wt 106.1 kg (234 lb) SpO2 100% BMI 44.21 kg/m?? Anesthesia Type: general/TIVA Last vitals BP Temp Pulse Resp SpO2 Anesthesia Post Evaluation Patient location during evaluation: PACU Patient participation: complete - patient participated Level of consciousness: fully awake Pain management: satisfactory to patient Airway patency: adequate Anesthetic complications: no Cardiovascular status: acceptable Respiratory status: acceptable Hydration status: acceptable Pt is: normothermic Nausea/Vomiting status: none * Anesthesia Preprocedure Evaluation - Melvin Dudley MD - 01/18/2018 11:54 AM CDT Anesthesia Evaluation Elizabeth Oates is a 52 y.o. female Procedure(s): Colonoscopy HISTORY Past Medical History Musculoskeletal/Pain + Osteoarthritis Endocrine / Other + Obesity (BMI >30)- morbid obesity (BMI>40). There is no problem list on file for this patient. Past Medical History: Diagnosis Date ??? Chronic diarrhea ??? Depression Past Surgical History: Procedure Laterality Date ??? DILATION AND CURETTAGE OF UTERUS ??? THYROID LOBECTOMY OB History No data available No Known Allergies HOME MEDICATIONS : ibuprofen (ADVIL,MOTRIN) 200 mg tab/cap Current Facility-Administered Medications: ??? ondansetron (ZOFRAN) injection 4 mg, 4 mg, intravenous, Q30 Min PRN ??? sodium chloride 0.9% flush 0.5-20 mL, 0.5-20 mL, intra-catheter, PRN ??? sodium chloride 0.9% infusion, 30 mL/hr, intravenous, Continuous, Last Rate: 30 mL/hr at 01/18/18 1117, 30 mL/hr at 01/18/18 1117 ??? sodium chloride 0.9% infusion, 125 mL/hr, intravenous, Continuous Social History Smoking Status ??? Never Smoker Smokeless Tobacco ??? Never Used Alcohol use Not on file Drug use: Unknown Family History Problem Relation Age of Onset ??? Colon cancer Father PAT Physical Exam Vitals: 01/18/18 1038 BP: 124/81 Pulse: 80 Resp: 20 Temp: (!) 35.7 ??C (96.3 ??F) SpO2: 97% PT: No results found for requested labs within last 720 hours. INR: No results found for requested labs within last 720 hours. APTT: No results found for requested labs within last 720 hours. Hgb A1C: No results found for requested labs within last 720 hours. CBC RBC: No results found for requested labs within last 720 hours. RDW: No results found for requested labs within last 720 hours. MCHC: No results found for requested labs within last 720 hours. MCH: No results found for requested labs within last 720 hours. MCV: No results found for requested labs within last 720 hours. Hct: No results found for requested labs within last 720 hours. Hgb: No results found for requested labs within last 720 hours. WBC: No results found for requested labs within last 720 hours. MPV: No results found for requested labs within last 720 hours. Platelets: No results found for requested labs within last 720 hours. RDW CV: No results found for requested labs within last 720 hours. RDW Sd: No results found for requested labs within last 720 hours. BMP Glucose: No results found for requested labs within last 720 hours. Calcium: No results found for requested labs within last 720 hours. Sodium: No results found for requested labs within last 720 hours. Potassium: No results found for requested labs within last 720 hours. CO2: No results found for requested labs within last 720 hours. Chloride: No results found for requested labs within last 720 hours. BUN: No results found for requested labs within last 720 hours. Creatinine: No results found for requested labs within last 720 hours. STOP-Bang Total Score: 2 DOS Physical Exam Medical history, medications, and allergies reviewed. Attestation: This PAT evaluation 01/18/2018. Airway Exam: Mallampati: II Cervical ROM: FROM TM distance: >4 Jaw ROM: full Cardiovascular Exam: Rate: regular Rhythm: regular Pulmonary Exam: LCTA, bilat Dental Exam: Poor dentition and missing Current state: Patient's current state is cooperative. Anesthesia Plan ASA 3 My patient is approved for the Anesthesia Controlled Medication protocol when under care of a STRAIGHTENING MACHINE FEEDER Planned anesthesia: General/TIVA Induction: Induction: intravenous. Informed Consent: Discussed plan with STRAIGHTENING MACHINE FEEDER. Anesthesia plan and risks discussed with patient. [...] Action Action Date Dose Rate Site lidocaine (cardiac) (XYLOCAINE) preservative free injection intravenous, As needed, Starting on Wed01/18/18 at 1216, Anesthesia Intra-op, Indications: Ventricular ArrhythmiasIndications:Ventricular Arrhythmias Given 01/18/2018 12:16 PM CDT 40 mg propofol (DIPRIVAN) IV intravenous, As needed, Starting on Wed01/18/18 at 1216, Anesthesia Intra-op Given 01/18/2018 12:25 PM CDT 50 mg Given 01/18/2018 12:20 PM CDT 40 mg Given 01/18/2018 12:16 PM CDT 100 mg sodium chloride 0.9% infusion 125 mL/hr, intravenous, Continuous, Starting on Wed01/18/18 at 1200, Recovery (GI) New Bag 01/18/2018 12:01 PM CDT documented in this encounter Care Teams Perioperative Assistant Relationship Specialty Start Date End Date Tomasz Martinez PA [address] [place] [address] PCP - General 12/15/17 documented as of this encounter
--- OUTSIDE RECORDS SUMMARY | 2024-07-21 10:50 | XMS_ITS | Encounter Summary ---
Author Organization [facility] Healthcare Address [address] [place] [address] Care Team Providers Care Lead Warehouse Associate Name Role Phone Tomasz Martinez Primary Care Provider [phone] Reason for Visit * Reason Comments Diarrhea Abdominal Pain Encounter Details Date Type Department Care Team (Late st Contact Info) Description 02/17/2020 9:32 PM CDT - 02/18/2020 1:01 AM CDT Emergency [facility] Emergency Department [address] [place] [address] Magali Finch MD [address] [place] [address] [place] [address] Chronic colitis (Primary Dx); Abdominal pain; Diarrhea, unspecified type; Mesenteric adenitis Discharge Disposition: Discharge to home or self care Social History Tobacco Use Types Packs/Day Years Used Date Smoking Tobacco: Never Smokeless Tobacco: Never Comments Unknown Sex and Gender Information Value Date Recorded Sex Assigned at Not on file 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 PLASTIC INJECTION [employer] Gender Identity Not on file Sexual Orientation Not on file documented as of this encounter Last Filed Vital Signs Vital Sign Reading Time Taken Comments Blood Pressure 135/82 02/17/2020 11:50 PM CDT Pulse 92 02/17/2020 11:50 PM CDT Temperature 37 ??C (98.6 ??F) 02/17/2020 8:45 PM CDT Respiratory Rate 18 02/17/2020 11:50 PM CDT Oxygen Saturation 96% 02/17/2020 11:50 PM CDT Inhaled Oxygen Concentration - - Weight 115.2 kg (254 lb) 02/17/2020 8:45 PM CDT Height 154.9 cm (5' 1 ) 02/17/2020 8:45 PM CDT Body Mass Index 47.99 02/17/2020 8:45 PM CDT documented in this encounter Discharge Diagnoses Diagnosis Noninfective gastroenteritis and colitis, unspecified - NONINFECTIVE GASTROENTERITIS AND COLITIS, UNSPECIFIED Unspecified abdominal pain - UNSPECIFIED ABDOMINAL PAIN Nonspecific mesenteric lymphadenitis - NONSPECIFIC MESENTERIC LYMPHADENITIS documented in this encounter Discharge Instructions * Discharge Instructions* Magali Finch MD - 02/18/2020 12:24 AM CDT From your evaluation today it is evident that you have couple things going on. First you have mesenteric adenitis. Please see the handout for details. As we discussed, this does not require specific treatment and will get better on its own. Second, you have chronic colitis. This could be inflammatory or infectious. You have a normal whitecount at 6.1 suggesting that this is inflammatory colitis, such as ulcerative colitis. In order to truly make this diagnosis you need to see a GI doctor and have evaluation which will likely include colonoscopy. I am giving you a referral to Dr. Abbott for this workup. There are medications to treat inflammatory colitis which can greatly improve your quality of life and improve your symptoms significantly. Call on Wednesday to make this appointment. Take the medications as prescribed. These are antibiotics which can help calm down your symptoms and if this is is infectious, it will treat it. Return to the ER with worsening symptoms or with any concerns. * Attachments The following attachments cannot be sent through Care Everywhere. 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 and stocking ironer before breakfast ondansetron (ZOFRAN) 4 mg tablet Take 1 tablet (4 mg total) by mouth every 4 (four) hours as needed for nausea or vomiting 15 tablet 02/18/2020 ciprofloxacin (CIPRO) 500 mg tablet Take 1 tablet (500 mg total) by mouth 2 (two) times a day for 14 days 28 tablet 02/18/2020 0 metroNIDAZOLE (FLAGYL) 500 mg tablet Take 1 tablet (500 mg total) by mouth 2 (two) times a day for 14 days 28 tablet 02/18/2020 0 famotidine (PEPCID) 20 mg tablet Take 1 tablet (20 mg total) by mouth 2 (two) times a day 30 tablet 02/18/2020 3 ibuprofen (ADVIL,MOTRIN) 200 mg tab/cap Take by mouth every 6 (six) hours as needed for pain. 1 raNITIdine (ZANTAC) 150 mg tablet Take 1 [...] Refills Last Filled Start Date End Date ondansetron (ZOFRAN) 4 mg tablet Take 1 tablet (4 mg total) by mouth every 4 (four) hours as needed for nausea or vomiting 15 tablet 02/18/2020 traMADoL (ULTRAM) 50 mg tablet Take 1-2 tablets (50-100 mg total) by mouth every 6 (six) hours as needed for pain (1 tablet for mild to moderate pain or 2 tablets for severe pain) 20 tablet 02/18/2020 3 famotidine (PEPCID) 20 mg tablet Take 1 tablet (20 mg total) by mouth 2 (two) times a day 30 tablet 02/18/2020 3 metroNIDAZOLE (FLAGYL) 500 mg tablet Take 1 tablet (500 mg total) by mouth 2 (two) times a day for 14 days 28 tablet 02/18/2020 0 ciprofloxacin (CIPRO) 500 mg tablet Take 1 tablet (500 mg total) by mouth 2 (two) times a day for 14 days 28 tablet 02/18/2020 0 documented in this encounter Discharge Disposition Disposition Code Departure Means Destination Discharge to home or self care documented in this encounter ED Notes * Magali Finch MD - 02/17/2020 11:16 PM CDT HPI Chief Complaint Patient presents with ??? Diarrhea ??? Abdominal Pain HPI 11:16 PM Elizabeth Oates is a 54 y.o. female presenting to the ED c/o constant moderate lower abdominal pain that began approximately 2 weeks ago. She notes that the pain intermittently radiates to her right lower back. Pt is also c/o nausea, diarrhea, and headaches in association with her pain. She reports that every time she eats she has an episode of diarrhea. She states that she has 3 episodes of diarrhea per day, on average. She denies any fever, chills, cough, SOB, or vomiting at this time. She notes that she has never seen a GI doctor regarding these issues. She also adds that she recently saw her PCP who jabari blood tests, but has not called her back with the results. She also notes that she used to have these issues as a child, but was never treated for them. She think she probably needs to see stomach doctor and have an evaluation, but she has yet to do this. Pt has had a thyroid lobectomy and dilation and curettage of her uterus in the past. She currently lives at home and is a non smoker. PMSFHx: Nursing note reviewed. Patient History Past Medical History: Diagnosis Date ??? Chronic diarrhea ??? Depression Past Surgical History: Procedure Laterality Date ??? DILATION AND CURETTAGE OF UTERUS ??? THYROID LOBECTOMY Family History Problem Relation Age of Onset ??? Colon cancer Father Social History Tobacco Use ??? Smoking status: Never Smoker ??? Smokeless tobacco: Never Used Substance Use Topics ??? Alcohol use: Not on file ??? Drug use: Not on file Review of Systems Review of Systems Constitutional: Negative for chills, fatigue and fever. HENT: Negative for congestion, ear pain, rhinorrhea, sneezing and sore throat. Respiratory: Negative for cough, shortness of breath and wheezing. Cardiovascular: Negative for chest pain and palpitations. Gastrointestinal: Positive for abdominal pain (lower), diarrhea (3 episodes per day) and nausea. Negative for constipation and vomiting. Genitourinary: Negative for dysuria and frequency. Musculoskeletal: Positive for back pain (right lower). Negative for arthralgias, myalgias and neck pain. Skin: Negative for rash and wound. Neurological: Positive for headaches. Negative for dizziness, syncope, weakness and light-headedness. All other systems reviewed and are negative. Physical Exam ED Triage Vitals [02/17/202044] Temp Pulse Resp BP SpO2 37 ??C (98.6 ??F) 94 17 137/85 95 % Temp src Heart Rate Source Patient Position BP Location FiO2 (%) Temporal -- -- -- -- Physical Exam Vitals signs and nursing note reviewed. Constitutional: General: She is not in acute distress. Appearance: Normal appearance. She is well-developed. She is obese. HENT: Head: Normocephalic and atraumatic. Left Ear: External ear normal. Nose: Nose normal. Mouth/Throat: Mouth: Mucous membranes are moist. Pharynx: Oropharynx is clear. Eyes: Conjunctiva/sclera: Conjunctivae normal. Pupils: Pupils are equal, round, and reactive to light. Neck: Musculoskeletal: Normal range of motion and neck supple. Cardiovascular: Rate and Rhythm: Normal rate and regular rhythm. Heart sounds: Normal heart sounds. No murmur. No friction rub. No gallop. Pulmonary: Effort: Pulmonary effort is normal. No respiratory distress. Breath sounds: Normal breath sounds. No wheezing or rales. Abdominal: General: Bowel sounds are normal. There is no distension. Palpations: Abdomen is soft. Tenderness: There is no abdominal tenderness. There is no right CVA tenderness, left CVA tenderness, guarding or rebound. Comments: Obese abdomen Musculoskeletal: Normal range of motion. General: No swelling, tenderness or deformity. Skin: General: Skin is warm and dry. Capillary Refill: Capillary refill takes less than 2 seconds. Findings: No rash. Neurological: Mental Status: She is alert and oriented to person, place, and time. Cranial Nerves: No cranial nerve deficit. Sensory: No sensory deficit. Motor: No weakness. Coordination: Coordination normal. Gait: Gait normal. Deep Tendon Reflexes: Reflexes normal. Comments: JULIA FROM Equal grasp 5/5 strength and sensation Psychiatric: Mood and Affect: Mood normal. Behavior: Behavior normal. Procedures [facility] Labs Reviewed URINALYSIS AND REFLEX TO MICROSCOPIC AND CULTURE - Abnormal Result Value Color, ur Yellow Clarity, ur Clear Specific gravity, ur 1.020 pH, urine 5.5 Protein, ur ql Negative Glucose, ur ql Negative Ketones, ur Negative Bilirubin, ur Negative Blood, ur Negative Urobilinogen, ur <2.0 Nitrite, ur Negative Leukocyte esterase, ur 3+ (*) UA reflex comment Reflex to microscopic UA will be performed. Narrative: Urine pH is affected by diet, medications, systemic acid-base disturbances, and renal tubular function. pH may affect urinary stone formation. For example, urine pH below 6.0 may help reduce the tendency for calcium phosphate stones and pH greater than 6.0 may reduce the tendency for uric acid stone formation. Source: [employer].Last revised 08-12-2017 COMPREHENSIVE METABOLIC PANEL - Abnormal Sodium 139 Potassium, pl 3.6 Chloride 104 CO2 27 Anion gap 9 BUN 9 Creatinine 0.57 (*) Glucose 101 Calcium 9.0 Bilirubin, total <0.2 Protein, pl 7.3 Albumin 3.9 Alk phos 78 ALT 18 AST 20 CBC WITH AUTO DIFFERENTIAL - Abnormal WBC 6.1 Hgb 11.3 (*) Hct 35.6 Plt 292 MPV 9.8 RBC 3.82 (*) MCV 93.2 MCH 29.6 MCHC 31.7 (*) RDW CV 13.2 RDW SD 45.0 NRBC abs 0.00 URINALYSIS, MICROSCOPIC ONLY - Abnormal WBC, ur 6-10 (*) RBC, ur 0-2 Epithelial cells, squamous, ur 1-5 Bacteria, ur Trace (*) Culture Reflex Comment Value: Reflex conditions for urine culture (WBC >10) not met. DIFFERENTIAL AUTO Neutrophil abs 3.5 Imm gran abs 0.0 Lymphocyte abs 1.8 Monocyte abs 0.5 Eosinophil abs 0.3 Basophil abs 0.0 Neutrophil pct 56.9 Imm gran pct 0.2 Lymphocyte pct 29.1 Monocyte pct 8.2 Eosinophil pct 5.1 Basophil pct 0.[address] Abdomen Pelvis W Contrast Final Result 1. Mesenteric adenitis 2. Diffuse fatty infiltration of the wall of the colon indicates chronic colitis which could be infectious or inflammatory. 3. Probable uterine fibroid. THIS IS AN ELECTRONICALLY VERIFIED FINAL REPORT 02/17/2020 11:37 PM - Electronically signed by Annemarie Ribera M.D. : Report ID: [id number] Reading Location: [id number] BP 135/82 Pulse 92 Temp 37 ??C (98.6 ??F) (Temporal) Resp 18 Ht 154.9 cm (5' 1 ) Wt 115.2kg (254 lb) SpO2 96% BMI 47.99 kg/m?? MDM ED Course as of Feb 17 35 Time: 02/17 34 Comment: Lengthy discussion to explain the patient the results of her labs and CT scan. She agrees to follow-up with Dr. Abbott By: Magali Finch MD Clinical Impression: Chronic colitis Abdominal pain Diarrhea, unspecified type Mesenteric adenitis This note is prepared by Tj Andersen, acting as a scribe for Magali Finch MD. I electronically signed this note at 11:16 PM on 02/17/2020. I, Magali Finch MD have personally performed the services described in the documentation, reviewed the documentation, as recorded by the scribe in my presence, and it accurately and completely records my words and actions. Magali Finch MD 02/18/2034 * Alberto Toribio RN - 02/17/2020 10:17 PM CDT Pt reports chronic gas pain since being a child. Pt reports nausea x 2 weeks and intermittent diarrhea and constipation. Pt states this is not a new change. No tenderness noted. NAD noted. Alberto Toribio RN 02/17/202216 Alberto Toribio RN 02/17/202217 * Lilliana Gustafson RN - 02/17/2020 8:46 PM CDT Patient to ED c/o diarrhea and lower abdominal pain x 2 weeks. Reports nausea, no vomiting or fevers. documented in this encounter Plan of Treatment Not on file documented as of this encounter Procedures Procedure Name Priority Date/Time Associated Diagnosis Comments URINALYSIS AND REFLEX TO MICROSCOPIC AND CULTURE STAT 02/17/2020 11:16 PM CDT URINALYSIS, MICROSCOPIC ONLY STAT 02/17/2020 11:[address] ABDOMEN PELVIS W CONTRAST ED 02/17/2020 11:08 PM CDT EGFR STAT 02/17/2020 9:28 PM CDT DIFFERENTIAL AUTO STAT 02/17/2020 9:2 8 PM CDT CBC WITH AUTO DIFFERENTIAL STAT 02/17/2020 9:28 PM CDT COMPREHENSIVE METABOLIC PANEL STAT 02/17/2020 9:28 PM CDT documented in this encounter Results * (ABNORMAL) Urinalysis, microscopic only (02/17/2020 11:16 PM CDT) WBC, ur 6-10(A) 0 - 5 /HPF [facility] RBC, ur 0-2 0 - 2 /HPF [facility] Epithelial cells, squamous, ur 1-5 0 - 5 /HPF [facility] Bacteria, ur Trace(A) [facility]) Culture Reflex Comment Reflex conditions for urine culture (WBC >10) not met. [facility] Urine 02/17/2020 11:1 6 PM CDT 02/17/2020 11:17 PM CDT Magali Finch MD LAB URINE ORDERABLES Phyllis l Result [facility] 1 [facility] Department [place] [address] * (ABNORMAL) Urinalysis reflex to microscopic and culture Urine (02/17/2020 11:16 PM CDT) Color, ur Yellow Yellow [facility]) Clarity, ur Clear Clear [facility] ([place]) Specific gravity, ur 1.020 1.010 - 1.025 [facility] pH, urine 5.5 [facility] Protein, ur ql Negative Negative [facility] Glucose, ur ql Negative Negative [facility] Ketones, ur Negative Negative [facility]) Bilirubin, ur Negative Negative [facility] Blood, ur Negative Negative [facility] Urobilinogen, ur <2.0 <2.0 mg/dL [facility]) Nitrite, ur Negative Negative [facility]) Leukocyte esterase, ur 3+(A) Negative [facility]) UA reflex comment Reflex to microscopic UA will be performed. [facility]) Urine 02/17/2020 11:1 6 PM CDT 02/17/2020 11:17 PM CDT Narrative [facility]) - 02/17/2020 11:27 PM CDT ?? Urine pH is affected by diet, medications, systemic acid-base disturbances, and renal tubular function. ??pH may affect urinary stone formation. ??For example, urine pH below 6.0 may help reduce the tendency for calcium phosphate stones and pH greater than 6.0 may reduce the tendency for uric acid stone formation. Source: [employer]. Last revised 08-12-2017 us Magali Finch MD LAB MICROBIOLOGY - GENERA L ORDERABLES Final Result [facility] 1 [facility] Department [place] [address] * CT Abdomen Pelvis W Contrast (02/17/2020 11:08 PM CDT) Anatomical Region Laterality Modality Body N/A Computed Tomogra phy 02/17/2020 11:0 0 PM CDT Impressions 02/17/2020 11:41 PM CDT 1. ??Mesenteric adenitis 2. ??Diffuse fatty infiltration of the wall of the colon indicates chronic colitis which could be infectious or inflammatory. 3. ??Probable uterine fibroid. THIS IS AN ELECTRONICALLY VERIFIED FINAL REPORT 02/17/2020 11:37 PM - Electronically signed by Annemarie Ribera M.D. : D: ??02/17/2020 11:37 PM T: ??02/17/2020 11:37 PM Report ID: [id number] Reading Location: ??[id number] Narrative 02/17/2020 11:41 PM CDT [facility] ?Imaging Result Name: ELIZABETH OATES ? Ordering Phys: MAGALI FINCH Age: 54 ?Date of : 1965 ? Accession Number: [id number] Date of Service: 02/17/2020 ??Gender: F EXAM DESCRIPTION: ?? CT ABDOMEN PELVIS W CONTRAST REASON FOR STUDY: ?Pt reports nausea x 2 weeks and intermittent diarrhea and constipation, lower abdominal pain. No ??history of abdominal surgery. 100ML Opti 320 via 20G right handDuration: 2 weeks TECHNIQUE: ??CT scan of the abdomen and pelvis performed with intravenous and without oral contrast using helical scanning technique with dynamic intravenous contrast injection. Reconstructed coronal and sagittal MPR images reviewed. All images stored on PACS. Automated exposure control was used as a dose optimization technique for this examination. CONTRAST TYPE/DOSE: ?? 100ml of opti 320 injected via ??right hand COMPARISON: ?? None ??LOWER CHEST: ??No significant pulmonary abnormalities. No effusion. LIVER: ??3.2 cm cyst right posterior lobe of liver. GALLBLADDER: ??No visualized abnormality. BILE DUCTS: ??No intrahepatic or extrahepatic ductal dilatation. SPLEEN: ??Normal size. ??No focal lesions. PANCREAS: ??No identified cystic or solid masses. No significant calcifications. No adjacent inflammation or peripancreatic fluid collections. Pancreatic duct not dilated. ADRENALS: ??Normal. KIDNEYS/URINARY TRACT: ??No identified significant cystic or solid masses. No visualized stones. No hydronephrosis or hydroureter. Symmetric enhancement. Urinary bladder is unremarkable. GI: ??No dilated loops of bowel to indicate obstruction. ??There is collapsed mid to distal colon which demonstrates fatty infiltration of the wall. Appendix not seen, no secondary signs of appendicitis. ??Loops of small bowel normal in caliber. PERITONEUM: ??Midline mesenteric stranding and prominent lymph nodes indicates mesenteric adenitis. RETROPERITONEUM: ??No mass or adenopathy. REPRODUCTIVE: ??Retroverted uterus with probable uterine fibroid measuring up to 6.7 cm. VASCULATURE: ??No abdominal aortic aneurysm. MUSCULOSKELETAL: ??No significant abnormality. OTHER: ??No other abnormality. Procedure Note Annemarie Ribera MD - 02/17/2020 [facility] Imaging Result Name: ELIZABETH OATES Ordering Phys: MAGALI FINCH Age: 54 Date of : 1965 Accession Number: [id number] Date of Service: 02/17/2020 Gender: F EXAM DESCRIPTION: CT ABDOMEN PELVIS W CONTRAST REASON FOR STUDY: Pt reports nausea x 2 weeks and intermittent diarrheaand constipation, lower abdominal pain. No history of abdominal surgery.100ML Opti 320 via 20G right handDuration: 2 weeks TECHNIQUE: CT scan of the abdomen and pelvis performed with intravenousand without oral contrast using helical scanning technique with dynamic intravenous contrast injection. Reconstructed coronal and sagittal MPRimages reviewed. All images stored on PACS. Automated exposure control was used as a dose optimization technique forthis examination. CONTRAST TYPE/DOSE: 100ml of opti 320 injected via right hand COMPARISON: None LOWER CHEST: No significant pulmonary abnormalities. No effusion. LIVER: 3.2 cm cyst right posterior lobe of liver. GALLBLADDER: No visualized abnormality. BILE DUCTS: No intrahepatic or extrahepatic ductal dilatation. SPLEEN: Normal size. No focal lesions. PANCREAS: No identified cystic or solid masses. No significant calcifications. No adjacent inflammation or peripancreatic fluidcollections. Pancreatic duct not dilated. ADRENALS: Normal. KIDNEYS/URINARY TRACT: No identified significant cystic or solid masses.No visualized stones. No hydronephrosis or hydroureter. Symmetricenhancement. Urinary bladder is unremarkable. GI: No dilated loops of bowel to indicate obstruction. There iscollapsed mid to distal colon which demonstrates fatty infiltration of the wall. Appendix not seen, no secondary signs of appendicitis. Loops of smallbowel normal in caliber. PERITONEUM: Midline mesenteric stranding and prominent lymph nodesindicates mesenteric adenitis. RETROPERITONEUM: No mass or adenopathy. REPRODUCTIVE: Retroverted uterus with probable uterine fibroid measuringup to 6.7 cm. VASCULATURE: No abdominal aortic aneurysm. MUSCULOSKELETAL: No significant abnormality. OTHER: No other abnormality. IMPRESSION: 1. Mesenteric adenitis 2. Diffuse fatty infiltration of the wall of the colon indicateschronic colitis which could be infectious or inflammatory. 3. Probable uterine fibroid. THIS IS AN ELECTRONICALLY VERIFIED FINAL REPORT 02/17/2020 11:37 PM - Electronically signed by Annemarie Ribera M.D. : Report ID: [id number] Reading Location: [place] [address] [place] Magali Finch MD IMG CT PROCEDURES Final R esult * eGFR (02/17/2020 9:28 PM CDT) eGFR 105 mL/min/1.7 3 m2 [facility] Comment: Interpretive Data Reference Interval Normal ?>/= 90 mL/min/1.73m2 Mildly decreased* ? 60 - 89 mL/min/1.73m2 Mildly to moderately decreased ?45 - 59 mL/min/1.73m2 Moderately to severely decreased ??30 - 44 mL/min/1.73m2 Severely decreased ?15 - 29 mL/min/1.73m2 Kidney Failure ?< 15 ??mL/min/1.73m2 *Relative to young adult level If -Tanz[place] multiply value by 1.16. Estimated glomerular filtration rate is determined by the CKD-EPI equation recommended by the National Kidney Foundation (KDIGO 2012 Clinical Practice Guideline for the Evaluation and Management of Chronic Kidney Disease. Kidney Intnl Suppl Aug 2012;3:1). The CKD-EPI equation should not be used for patients with unstable renal function and has not been validated in children and those over 70. Current interpretive data was last reviewed 2016. Blood specimen (specimen) 02/17/2020 9:28 PM CDT 02/17/2020 9:41 PM CDT us Annemarie Amador MD LAB BLOOD ORDERABLES Final Result [facility] 1 [facility] Department [place] [address] * Differential, auto (02/17/2020 9:28 PM CDT) Neutrophil abs 3.5 1.7 - 6.5 K/cumm [facility]) Imm gran abs 0.0 0.0 - 0.1 K/cumm [facility]) Lymphocyte abs 1.8 0.8 - 3.3 K/cumm [facility]) Monocyte abs 0.5 0.2 - 0.8 K/cumm [facility]) Eosinophil abs 0.3 0.0 - 0.5 K/cumm [facility]) Basophil abs 0.0 0.0 - 0.1 K/cumm [facility]) Neutrophil pct 56.9 % [facility] Comment: Interpretive [...] was last revised on 2017. Lymphocyte pct 29.1 % [facility] Comment: Interpretive Data Percent cell count reference ranges are not reported, since discordance with absolute values may lead to misinterpretation of CBC data. Current Interpretive Data was last revised on 2017. Monocyte pct 8.2 % [facility] Comment: Interpretive Data Percent cell count reference ranges are not reported, since discordance with absolute values may lead to misinterpretation of CBC data. Current Interpretive Data was last revised on 2017. Eosinophil pct 5.1 % [facility] Comment: Interpretive Data Percent cell count reference ranges are not reported, since discordance with absolute values may lead to misinterpretation of CBC data. Current Interpretive Data was last revised on 2017. Basophil pct 0.5 % [facility] Comment: Interpretive Data Percent cell count reference ranges are not reported, since discordance with absolute values may lead to misinterpretation of CBC data. Current Interpretive Data was last revised on 2017. Blood specimen (specimen) 02/17/2020 9:28 PM CDT 02/17/2020 9:41 PM CDT us Annemarie Amador MD LAB BLOOD ORDERABLES Final Result [facility] ([place]) 1 [facility] Department [place] [address] * (ABNORMAL) CBC with auto differential (02/17/2020 9:28 PM CDT) WBC 6.1 3.8 - 9.9 K/cumm [facility]) Hgb 11.3(L) 11.9 - 15.5 g/dL [facility]) Hct 35.6 35.6 - 45.5 % [facility]) Plt 292 150 - 400 K/cumm [facility]) MPV 9.8 9.1 - 12.3 fL [facility] RBC 3.82(L) 3.90 - 5.20 M/cumm [facility]) MCV 93.2 81.3 - 96.4 fL [facility]) MCH 29.6 27.1 - 33.3 pg [facility]) MCHC 31.7(L) 32.3 - 35.7 g/dL [facility]) RDW CV 13.2 11.1 - 14.9 % [facility]) RDW SD 45.0 35.7 - 48.[address] [facility] NRBC abs 0.00 0.00 - 0.01 K/cumm [facility] ([place]) Blood specimen (specimen) 02/17/2020 9:28 PM CDT 02/17/2020 9:41 PM CDT us Annemarie Amador MD LAB BLOOD ORDERABLES Final Result [facility] ([place]) 1 [facility] Department [place] [address] * (ABNORMAL) Comprehensive metabolic panel (02/17/2020 9:28 PM CDT) Sodium 139 135 - 145 mmol/L [facility] ([place]) Potassium, pl 3.6 3.3 - 4.9 mmol/L [facility] ([place] Chloride 104 97 - 110 mmol/L [facility] ([place]) CO2 27 22 - 32 mmol/L [facility] ([place] Anion gap 9 2 - 15 mmol/L [facility] ([place] BUN 9 8 - 25 mg/dL [facility] ([place] Creatinine 0.57(L) 0.60 - 1.10 mg/dL [facility] ([place]) Glucose 101 70 - 199 mg/dL [facility] ([place] Comment: Interpretive Data Fasting glucose [...] classification and Diagnosis of Diabetes Diabetes Care 2017;40 (Suppl. 1):S11. Current interpretive data was last revised 2017. Calcium 9.0 8.5 - 10.3 mg/dL [facility] ([place]) Bilirubin, total <0.2 0.1 - 1.2 mg/dL [facility] ([place]) Protein, pl 7.3 6.5 - 8.5 g/dL [facility] ([place]) Albumin 3.9 3.5 - 5.0 g/dL [facility] ([place]) Alk phos 78 40 - 130 Units/L [facility] ([place]) ALT 18 7 - 45 Units/L [facility] ([place] AST 20 10 - 45 Units/L [facility] ([place]) Blood specimen (specimen) 02/17/2020 9:28 PM CDT 02/17/2020 9:41 PM CDT us Annemarie Amador MD LAB BLOOD ORDERABLES Final Result [facility] ([place] 1 [facility] Department [place] [address] documented in this encounter Visit Diagnoses Diagnosis Chronic colitis- Primary Other and unspecified noninfectious gastroenteritis and colitis Abdominal pain Abdominal pain, unspecified site Diarrhea, unspecified type Mesenteric adenitis Nonspecific mesenteric lymphadenitis documented in this encounter Administered Medications Inactive Administered Medications - up to 3 most recent administrations Medication Order MAR Action Action Date Dose Rate Site ciprofloxacin (CIPRO) tablet 500 mg 500 mg, oral, Once, On 02/18/20 at 0020, For 1 dose, Indications: Abdominal/Pelvic InfectionIndications:Abdominal/Pe lvic Infection Given 02/18/2020 12:51 AM CDT 500 mg ioversoL (OPTIRAY 320) intravenous syringe 100 mL 100 mL, intravenous, Once in imaging, contrast, Starting on 02/17/20 at 2232, For 1 dose Given 02/17/2020 11:00 PM CDT 100 mL metroNIDAZOLE (FLAGYL) tablet 500 mg 500 mg, oral, Once, On 02/18/20 at 0020, For 1 dose, Indications: Abdominal/Pelvic InfectionIndications:Abdominal/Pe lvic Infection Given 02/18/2020 12:51 AM CDT 500 mg documented in this encounter Active and Recently Administered Medications Times are shown in CDT. Scheduled Medication Order 02/16/2020 02/17/2020 02/18/2020 ciprofloxacin (CIPRO) tablet 500 mg (COMPLETED) 500 mg, oral, Once, On 02/18/20 at 0020, For 1 dose, Indications: Abdominal/Pelvic Infection 0051 (Given - Provid er: Lilliana Gustafson, ELIZABETH) metroNIDAZOLE (FLAGYL) tablet 500 mg (COMPLETED) 500 mg, oral, Once, On 02/18/20 at 0020, For 1 dose, Indications: Abdominal/Pelvic Infection 0051 (Given - Provid er: Lilliana Gustafson, ELIZABETH) PRN Medication Order 02/16/2020 02/17/2020 02/18/2020 ioversoL (OPTIRAY 320) intravenous syringe 100 mL (COMPLETED) 100 mL, intravenous, Once in imaging, contrast, Starting on 02/17/20 at 2232, For 1 dose 2300 (Given - Provider: Reid Dyer, RT - Comment: [id number] ) documented in this encounter Care Teams Lead Warehouse Associate Relationship Specialty Start Date End Date Tomasz Martinez PA [address] [place] [address] PCP - General 12/15/17 documented as of this encounter
--- OUTSIDE RECORDS SUMMARY | 2024-07-21 10:50 | XMS_ITS | Encounter Summary ---
Author Organization [facility] Healthcare Address [address] [place] [address] Care Team Providers Care Registered Private Duty Nurse Name Role Phone Unavailable Primary Care Provider Unavailabl e Encounter Details Date Type Department Care Team (Late st Contact Info) Description 05/29/2012 9:24 AM CDT - 05/29/2012 10:54 AM CDT Hospital Encounter [facility] Annemarie Guajardo MD [address] [place] [id number] Chronic sinusitis Social History Tobacco Use Types Packs/Day Years Used Date Smoking Tobacco: Never Assessed Comments Unknown Sex and Gender Information Value Date Recorded Sex Assigned at Not on file 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
--- OUTSIDE RECORDS SUMMARY | 2024-07-21 10:50 | XMS_ITS | Encounter Summary ---
Author Organization [facility] Healthcare Address [address] [place] [address] Care Team Providers Care Phone Technician Name Role Phone Tomasz Martinez Primary Care Provider [phone] Encounter Details Date Type Department Care Team (Late st Contact Info) Description 12/15/2017 5:57 PM CDT - 12/15/2017 11:59 PM CDT Hospital Encounter [facility] [address] [place] [address] Tomasz Martinez PA [address] [place] [address] Miguel Ángel Klein MD [address] [facility] [address] WALKER B [address] [address] Pain in right finger(s) Discharge Disposition: Discharge to home or self care Social History Tobacco Use Types Packs/Day Years Used Date Smoking Tobacco: Never Assessed Comments Unknown Sex and Gender Information Value Date Recorded Sex Assigned at Not on file 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 Gender Identity Not on file Sexual Orientation Not on file documented as of this encounter Discharge Disposition Disposition Code Departure Means Destination Discharge to home or self care documented in this encounter Plan of Treatment Not on file documented as of this encounter Procedures Procedure Name Priority Date/Time Associated Diagnosis Comments XR HAND RIGHT 2 VIEWS Schedule Routine, Read Routine (OP Routine) 12/15/2017 6:34 PM CDT Pain in right finger(s) documented in this encounter Results * XR Hand Right 2 Views (12/15/2017 6:34 PM CDT) Anatomical Region Laterality Modality Upper Extremities, Hand Right Computed Radiography Impressions 12/15/2017 9:27 PM CDT EVIDENCE OF EARLY DEGENERATIVE CHANGES. Electronically signed by: Malik Coker M.D Narrative 12/15/2017 9:27 PM CDT XR HAND RIGHT 2 VIEWS HISTORY: Pain in right finger(s). TECHNIQUE: 2 views are obtained. COMPARISON: None available. FINDINGS: No acute fracture or dislocation identified. ??Evidence of early degenerative changes. ??Soft tissues are unremarkable. ??No focal bony destruction is seen. ??Sclerotic FOCUS distal radius most commonly represents pulmonary island. Procedure Note Malik Coker MD - 12/15/2017 XR HAND RIGHT 2 VIEWS HISTORY: Pain in right finger(s). TECHNIQUE: 2 views are obtained. COMPARISON: None available. FINDINGS: No acute fracture or dislocation identified. Evidence of early degenerative changes. Soft tissues are unremarkable. No focal bony destruction is seen. Sclerotic FOCUS distal radius most commonly represents pulmonary island. IMPRESSION: EVIDENCE OF EARLY DEGENERATIVE CHANGES. Electronically signed by: Malik Coker M.D Tomasz [facility] IM[facility] XR PROCEDURES Final Resul t documented in this encounter Visit Diagnoses Diagnosis Pain in right finger(s) documented in this encounter Care Teams Phone Technician Relationship Specialty Start Date End Date Tomasz Martinez PA [address] [place] [address] PCP - General 12/15/17 documented as of this encounter
--- OUTSIDE RECORDS SUMMARY | 2024-07-21 10:50 | XMS_ITS | Encounter Summary ---
Author Organization [facility] Healthcare Address [address] [place] [address] Care Team Providers Care Computer Systems Engineer Name Role Phone Unavailable Primary Care Provider Unavailabl e Encounter Details Date Type Department Care Team (Late st Contact Info) Description 06/12/2012 11:05 AM FRONT END ALIGNMENT SPECIALIST - 06/12/2012 12:00 PM FRONT END ALIGNMENT SPECIALIST Hospital Encounter [facility] Annemarie Guajardo MD [address] [place] [id number] Acute sinusitis; Hypothyroidism Social History Tobacco Use Types Packs/Day Years Used Date Smoking Tobacco: Never Assessed Comments Unknown Sex and Gender Information Value Date Recorded Sex Assigned at Not on file 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
--- OUTSIDE RECORDS SUMMARY | 2024-07-21 10:50 | XMS_ITS | Encounter Summary ---
Author Organization [facility] Address [address] [place] [address] [address] [place] [address] Care Team Providers Care Education Dean Name Role Phone Tomasz Martinez Primary Care Provider [phone] Reason for Referral * Diagnostic Imaging (Routine) - Closed Specialty Diagnoses / Procedures Referred By Carolina t Referred To Contact Diagnoses Multinodular goiter (nontoxic) Procedures US Thyroid Elliot Mckeon DO Phone: tel: fax: External Order Referral ID Status Reason Start Date Expiration Date Visits Re quested Visits Authorized [id number] Closed 12/06/2018 06/16/2020 1 1 Reason for Visit * Reason Comments Thyroid Problem Encounter Details Date Type Department Care Team (Late st Contact Info) Description 11/29/2018 2:40 PM CDT Office Visit [facility] - [address] [place] [address] Elliot Mckeon DO [address] [place] [address] Multinodular goiter (nontoxic) (Primary Dx); Esophageal dysphagia; Gastroesophageal reflux disease without esophagitis Social History Tobacco Use Types Packs/Day Years Used Date Smoking Tobacco: Never Smokeless Tobacco: Never Comments Unknown Sex and Gender Information Value Date Recorded Sex Assigned at Not on file 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 Gender Identity Not on file Sexual Orientation Not on file documented as of this encounter Last Filed Vital Signs Vital Sign Reading Time Taken Comments Blood Pressure - - Pulse - - Temperature - - Respiratory Rate 20 11/29/2018 2:30 PM CDT Oxygen Saturation - - Inhaled Oxygen Concentration - - Weight 113.4 kg (250 lb) 11/29/2018 2:30 PM CDT Height 154.9 cm (5' 1 ) 11/29/2018 2:30 PM CDT Body Mass Index 47.24 11/29/2018 2:30 PM CDT documented in this encounter Ordered Prescriptions Prescription Sig Dispense Quantity Refills Last Filled Start Date End Date raNITIdine (ZANTAC) 150 mg tablet Take 1 tablet (150 mg total) by mouth 2 (two) times a day 60 tablet 2 11/29/2018 02/03/2023 documented in this encounter Progress Notes * Elliot Mckeon, - 11/29/2018 2:40 PM CDT Images from the original note were not included. [facility] DATE OF VISIT: 11/30/2018 CHIEF COMPLAINT Chief Complaint Patient presents with ??? Thyroid Problem HPI Elizabeth Oates is a 53 y.o. female nonsmoker with a medical history of hypothyroidism and depression with difficulty swallowing. Patient states that over the past several weeks she has been experiencing more difficulty swallowing solid foods. She localizes her symptoms to the root of herneck. Patient states that it seems as though certain types of solid foods 1A get stuck in which she has to drink a lot a water to passage down. She denies any regurgitation. It is not painful to swallow. Patient denies any hematemesis. No coughing spells or respiratory changes. A CT scan of her neck was performed without contrast on November 24, 2018 which demonstrated an enlarged nodular heterogeneous right thyroid lobe measuring 7.2 x 4.5 x 3.5 cm. causing mild tracheal deviation to the left. Evidence of a previous left thyroid lobectomy. No cervical or mediastinal lymphadenopathy. Remainder of the study was unremarkable. Patient does also admit to frequent throat clearing of thick mucus in a chronic foreign body sensation with swallowing. She denies any changes in her voice. Patient does take levothyroxine 50 micro g daily. MEDICAL HISTORY Past Medical History: Diagnosis Date ??? Chronic diarrhea ??? Depression Social History Tobacco Use ??? Smoking status: Never Smoker ??? Smokeless tobacco: Never Used Substance Use Topics ??? Alcohol use: Not on file ??? Drug use: Not on file Family History Problem Relation Age of Onset ??? Colon cancer Father MEDICATIONS HOME MEDICATIONS : levothyroxine (SYNTHROID, LEVOTHROID) 50 mcg tablet ibuprofen (ADVIL,MOTRIN) 200 mg tab/cap raNITIdine (ZANTAC) 150 mg tablet ALLERGIES No Known Allergies REVIEW OF SYSTEMS Review of Systems Constitutional: Negative for appetite change, chills, diaphoresis, fatigue, fever and unexpected weight change. HENT: Positive for trouble swallowing (Difficulty swallowing solid foods). Negative for congestion,dental problem, drooling, ear discharge, ear pain, facial swelling, hearing loss, mouth sores, nosebleeds, postnasal drip, rhinorrhea, sinus pressure, sneezing, sore throat, tinnitus and voice change. Eyes: Negative for itching and visual disturbance. Respiratory: Negative for apnea, cough, choking, shortness of breath, wheezing and stridor. Cardiovascular: Negative for chest pain. Gastrointestinal: Negative for diarrhea, nausea and vomiting. Endocrine: Negative for cold intolerance, heat intolerance, polydipsia, polyphagia and polyuria. Genitourinary: Negative for dysuria, hematuria and urgency. Musculoskeletal: Negative for arthralgias, gait problem, joint swelling, myalgias, neck pain and neck stiffness. Skin: Negative for color change, pallor, rash and wound. Allergic/Immunologic: Negative for environmental allergies, food allergies and immunocompromised state. Neurological: Negative for dizziness, tremors, seizures, syncope, facial asymmetry, speech difficulty, weakness, light-headedness, numbness and headaches. Hematological: Negative for adenopathy. Does not bruise/bleed easily. Psychiatric/Behavioral: Negative for agitation, behavioral problems, confusion, sleep disturbance and suicidal ideas. PHYSICAL EXAM Vitals Resp 20 Ht 154.9 cm (5' 1 ) Wt 113.4 kg (250 lb) BMI 47.24 kg/m?? Physical Exam Constitutional: She is oriented to person, place, and time. Vital signs are normal. She appears well-developed and well-nourished. She does not appear ill. HENT: Head: Normocephalic and atraumatic. Hair is normal. Right Ear: Hearing, tympanic membrane, external ear and ear canal normal. No middle ear effusion. No decreased hearing is noted. Left Ear: Hearing, tympanic membrane, external ear and ear canal normal. No middle ear effusion. Nodecreased hearing is noted. Nose: Nose normal. No mucosal edema or rhinorrhea. Mouth/Throat: Uvula is midline, oropharynx is clear and moist and mucous membranes are normal. No oral lesions. No trismus in the jaw. Abnormal dentition. Dental caries present. No uvula swelling. Noposterior oropharyngeal edema or posterior oropharyngeal erythema. Tonsils are 0 on the right. Tonsils are 0 on the left. No tonsillar exudate. Laryngeal mirror examination of his oral cavity, oropharynx, hypopharynx, supraglottic larynx and larynx demonstrated no mucosal lesions, ulcerations, asymmetries or functional impairment of the vocal cord on phonation. There was no pooling of secretions. There was mild erythema and edema of the posterior commissure. Eyes: Conjunctivae, EOM and lids are normal. Neck: Trachea normal, normal range of motion, full passive range of motion without pain and phonation normal. Neck supple. No edema and normal range of motion present. Thyroid mass and thyromegaly present. Cardiovascular: Normal rate. Pulmonary/Chest: Effort normal. Lymphadenopathy: Head (right side): No submental and no submandibular adenopathy present. Head (left side): No submental and no submandibular adenopathy present. She has no cervical adenopathy. Right cervical: No superficial cervical, no deep cervical and no posterior cervical adenopathy present. Left cervical: No superficial cervical, no deep cervical and no posterior cervical adenopathy present. Neurological: She is alert and oriented to person, place, and time. She has normal strength. No cranial nerve deficit. GCS eye subscore is 4. GCS verbal subscore is 5. GCS motor subscore is 6. Skin: Skin is warm, dry and intact. Psychiatric: She has a normal mood and affect. Her speech is normal and behavior is normal. Thoughtcontent normal. Nursing note and vitals reviewed. LABS AND OTHER DIAGNOSTIC TESTS Lab Results Component Value Date HGB 10.8 (L) 04/12/2016 HCT 34.4 (L) 04/12/2016 MCV 90.5 04/12/2016 ASSESSMENT Diagnoses and all orders for this visit: Multinodular goiter (nontoxic) (Primary) Assessment & Plan: This is a 53-year-old female who was [...] to discuss the results and further treatment recommen dations. Esophageal dysphagia Assessment & Plan: Patient is experiencing symptoms of cervical esophageal dysphagia that has gotten worse over the past couple weeks. Patient reports that solid foods are difficult to swallow and the restriction is localized to the root of her neck. This is the location where patient is noted on physical exam and CTimaging to have a large right-sided thyroid goiter. This most likely is contributing to local compressive symptoms. However, patient is also exhibiting symptoms of reflux that could also possibly cause problem swallowing. Patient may require a barium swallow esophagram verses upper endoscopy. We will initially treat her with anti-reflux medication. Gastroesophageal reflux disease without esophagitis Assessment & Plan: Ranitidine 150 mg b.i.d. Patient was provided [...] on the importance of compliance with medications. Other orders - raNITIdine (ZANTAC) 150 mg tablet; Take 1 tablet (150 mg total) by mouth 2 (two) times a day PLAN/RECOMMENDATIONS Follow up in the office in 2 weeks. Elliot Mckeon DO * Lolis Quinn MA - 11/29/2018 2:40 PM CDT Orders faxed. Message left for pt. documented in this encounter Miscellaneous Notes * Assessment & Plan Note - Elliot Mckeon DO - 11/30/2018 6:18 AM CDT Associated Problem(s): Gastroesophageal reflux disease without esophagitis Ranitidine 150 mg b.i.d. Patient was provided [...] on the importance of compliance with medications. * Assessment & Plan Note - Elliot Mckeon DO - 11/30/2018 6:16 AM CDT Associated Problem(s): Esophageal dysphagia Patient is experiencing symptoms of cervical esophageal dysphagia that has gotten worse over the past couple weeks. Patient reports that solid foods are difficult to swallow and the restriction is localized to the root of her neck. This is the location where patient is noted on physical exam and CTimaging to have a large right-sided thyroid goiter. This most likely is contributing to local compressive symptoms. However, patient is also exhibiting symptoms of reflux that could also possibly cause problem swallowing. Patient may require a barium swallow esophagram verses upper endoscopy. We will initially treat her with anti-reflux medication. * Assessment & Plan Note - Elliot Mckeon DO - 11/30/2018 6:13 AM CDT Associated Problem(s): Multinodular goiter (nontoxic) This is a 53-year-old female who was experiencing significant what appears to be local compressive symptoms with a large right thyroid goiter that was identified on CT imaging of the chest. Patient had a prior history of undergoing a left thyroid lobectomy for non cancer is condition over 15 yearsago. Patient does take thyroid hormone replacement at 50 mcg of levothyroxine daily. Patient will require a thyroid sonogram and updated TSH level. Patient was provided with educational material pertaining to thyroid disorders and the medical and surgical management of thyroid disease. Patient will return back to my office after the studies done to discuss the results and further treatment recomm endations. * Addendum Note - Lolis Quinn MA - 11/29/2018 2:40 PM CDTAddended by: LOLIS QUINN on: 12/06/2018 11:08 AM Modules accepted: Orders documented in this encounter Plan of Treatment Scheduled Orders Name Type Priority Associated Diagnoses Orde r Schedule TSH Lab Routine Multinodular goiter (nontoxic) Expected: 12/06/2018, Expires: 12/07/2019 Thyroid Imaging Schedule Routine , Read Routine (OP Routine) Multinodular goiter (nontoxic) Expected: 12/06/2018, Expires: 12/07/2019 documented as of this encounter Visit Diagnoses Diagnosis Multinodular goiter (nontoxic)- Primary Nontoxic multinodular goiter Esophageal dysphagia Dysphagia, pharyngoesophageal phase Gastroesophageal reflux disease without esophagitis Esophageal reflux documented in this encounter Historical Medications * This list may reflect changes made after this encounter. levothyroxine (SYNTHROID, LEVOTHROID) 50 mcg tablet Take 1 tablet (50 mcg total) by mouth hand woven carpet and rug mender before breakfast added in this encounter Care Teams Education Dean Relationship Specialty Start Date End Date Tomasz Martinez PA [address] [place] [address] PCP - General 12/15/17 documented as of this encounter
--- OUTSIDE RECORDS SUMMARY | 2024-07-21 10:50 | XMS_ITS | Encounter Summary ---
Author Organization [facility] Healthcare Address [address] [place] [address] Care Team Providers Care Knockdown Man Name Role Phone No, Physician Primary Care Provider [phone] Encounter Details Date Type Department Care Team (Late st Contact Info) Description 02/23/2017 4:35 PM CDT - 02/23/2017 7:13 PM CDT Emergency [facility] Emergency Department [address] [place] [address] Kwabena Roberson Jr., MD [address] [place] [address] [place] [address] Discharge Disposition: Discharge to home or self care Social History Tobacco Use Types Packs/Day Years Used Date Smoking Tobacco: Never Assessed Comments Unknown Sex and Gender Information Value Date Recorded Sex Assigned at Not on file 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 Gender Identity Not on file Sexual Orientation Not on file documented as of this encounter Discharge Disposition Disposition Code Departure Means Destination Discharge to home or self care documented in this encounter Plan of Treatment Not on file documented as of this encounter Procedures Procedure Name Priority Date/Time Associated Diagnosis Comments XR FOOT 3+ VW Routine 02/23/2017 11:09 PM CDT documented in this encounter Results * XR Foot 3+ Vw (02/23/2017 11:09 PM CDT) Anatomical Region Laterality Modality N/A Radiographic Annamarie ging 02/23/2017 11:0 9 PM CDT Narrative 02/23/2017 11:09 PM CDT XR Foot Min 3 Views R ??[id number] ??Acc#: ??[id number] DATE OF EXAM: ??Feb 23 2017 ?? XR Foot Min 3 Views R ??[id number] HISTORY: Pain. ??Dorsal right foot pain. ??No known injury. COMPARISON: 03/31/2009 FINDINGS: AP, lateral and oblique projections are obtained. ??There is no evidence of fracture or dislocation. ??The joint spaces are normally aligned. ??A plantar calcaneal spur is present. ??The soft tissues are normal. IMPRESSION: ?? 1. ??PLANTAR CALCANEAL SPUR. 2. ??OTHERWISE NORMAL RIGHT FOOT. Electronically signed by: Fredy Iqbal M.D. Interpreting Physician: ??DR ALLA ESCOBAR M.D. ??Read on: ??Feb 23 2017 ?? 7:11P Transcribed by: ??PSC ??On: Feb 23 2017 ??7:09P Approved Electronically by: ??SHAWN Sánchez, DR GOLD ??on: ??Feb 23 2017 ?? 7:09P Ordering DR: BRAEDEN CESPEDES Attending DR: DR JED MEDLEY Attending: ??DR JED MEDLEY Requesting: ??BRAEDEN CESPEDES Requesting Fax: ??[phone] Attending Fax: ??-- Attending ID: ??[id number] Requesting ID: ??[id number] Report To 1 ID: ??[id number] Report To 1 Name: ??DR JED MEDLEY Report To 1 FAX: ??-- NextGen Order #: ?? Procedure Note Miscellaneous, Not In File / Provider, MD Abdoulaye - 02/23/2017 XR Foot Min 3 Views R [id number] Acc#: [id number] DATE OF EXAM: Feb 23 2017 XR Foot Min 3 Views R [id number] HISTORY: Pain. Dorsal right foot pain. No known injury. COMPARISON: 03/31/2009 FINDINGS: AP, lateral and oblique projections are obtained. There is no evidence of fracture or dislocation. The joint spaces are normally aligned. A plantar calcaneal spur is present. The soft tissues are normal. IMPRESSION: 1. PLANTAR CALCANEAL SPUR. 2. OTHERWISE NORMAL RIGHT FOOT. Electronically signed by: Fredy Iqbal M.D. Interpreting Physician: DR ALLA ESCOBAR M.D. Read on: Feb 23 2017 7:11P Transcribed by: PSC On: Feb 23 2017 7:09P Approved Electronically by: SHAWN Sánchez, DR GOLD on: Feb 23 2017 7:09P Ordering DR: BRAEDEN CESPEDES Attending DR: DR JED MEDLEY Attending: DR JED MEDLEY Requesting: BRAEDEN CESPEDES Requesting Attending Fax: -- Attending ID: [id number] Requesting ID: [id number] Report To 1 ID: [id number] Report To 1 Name: DR JED MEDLEY Report To 1 FAX: -- NextGen Order #: Braeden Cespedes PRODUCTION CELL LEADER IMG XR PROCEDURES Final Res ult documented in this encounter Visit Diagnoses Not on filedocumented in this encounter Care Teams Knockdown Man Relationship Specialty Start Date End Date No, Physician PCP - General 02/23/17 12/14/17 documented as of this encounter
--- OUTSIDE RECORDS SUMMARY | 2024-07-21 10:50 | XMS_ITS | Encounter Summary ---
Author Organization [facility] Address [address] [place] [address] [address] [place] [address] Care Team Providers Care Civil Engineering Professional Name Role Phone Tomasz Martinez Primary Care Provider [phone] Reason for Visit * Reason Onset Date Comments Vomiting 12/01/2018 Encounter Details Date Type Department Care Team (Late st Contact Info) Description 12/01/2018 Telephone [facility] - [address] [place] [address] Micky Vu RN Vomiting Social History Tobacco Use Types Packs/Day Years Used Date Smoking Tobacco: Never Smokeless Tobacco: Never Comments Unknown Sex and Gender Information Value Date Recorded Sex Assigned at Not on file 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 Per patient she started vomiting up last nights dinner. Vomiting x 3. Denies diarrhea or abdominal pain. Patient does report feeling cold. Current oral temp 97.4. Denies exposure to illness. Patient voiced understanding to increase her fluid intake to avoid dehydration. She was encouraged to go to the nearest urgent care or contact her PCP if her sx does not improve or worsen. documented in this encounter Plan of Treatment Not on file documented as of this encounter Visit Diagnoses Not on filedocumented in this encounter Care Teams Civil Engineering Professional Relationship Specialty Start Date End Date Tomasz Martinez PA [address] [place] [address] PCP - General 12/15/17 documented as of this encounter
--- OUTSIDE RECORDS SUMMARY | 2024-07-21 10:50 | XMS_ITS | Encounter Summary ---
Author Organization [facility] Healthcare Address [address] [place] [address] Care Team Providers Care Punch Machine Hand Name Role Phone Unavailable Primary Care Provider Unavailabl e Encounter Details Date Type Department Care Team (Late st Contact Info) Description 12/11/2011 8:57 PM CDT - 12/12/2011 1:00 AM CDT Hospital Encounter [facility] Annemarie Guajardo MD [address] [place] [address] Hemorrhage of rectum and anus; Hemorrhoids; Diarrhea Social History Tobacco Use Types Packs/Day Years Used Date Smoking Tobacco: Never Assessed Comments Unknown Sex and Gender Information Value Date Recorded Sex Assigned at Not on file 

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
--- OUTSIDE RECORDS SUMMARY | 2024-07-21 10:50 | XMS_ITS | Encounter Summary ---
Author Organization [facility] Healthcare Address [address] [place] [address] Care Team Providers Care Hi Lo Driver Name Role Phone Unavailable Primary Care Provider Unavailabl e Encounter Details Date Type Department Care Team (Late st Contact Info) Description 03/31/2012 3:57 PM CDT - 03/31/2012 5:09 PM CDT Hospital Encounter [facility] Ann[facility]arie Guajardo MD [address] [facility] [place] [address] Sprain of foot; Activities involving walking, marching and hiking Social History Tobacco Use Types Packs/Day Years Used Date Smoking Tobacco: Never Assessed Comments Unknown Sex and Gender Information Value Date Recorded Sex Assigned at Not on file 

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
--- OUTSIDE RECORDS SUMMARY | 2024-07-21 10:50 | XMS_ITS | Encounter Summary ---
Author Organization [facility] Healthcare Address [address] [place] [address] Care Team Providers Care Account Service Representative Name Role Phone Unavailable Primary Care Provider Unavailabl e Encounter Details Date Type Department Care Team (Late st Contact Info) Description 01/03/2012 9:39 AM CDT - 01/03/2012 12:50 PM CDT Hospital Encounter [facility] Annemarie Guajardo MD [address] [place] [address] Avulsion fracture of tooth; Disorder of teeth and supporting structures Social History Tobacco Use Types Packs/Day Years Used Date Smoking Tobacco: Never Assessed Comments Unknown Sex and Gender Information Value Date Recorded Sex Assigned at Not on file 

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
--- OUTSIDE RECORDS SUMMARY | 2024-07-21 10:50 | XMS_ITS | Encounter Summary ---
Author Organization [facility] Healthcare Address [address] [place] [address] Care Team Providers Care Crt Name Role Phone Unavailable Primary Care Provider Unavailabl e Encounter Details Date Type Department Care Team (Late st Contact Info) Description 09/23/2015 2:46 PM DIGITAL PHOTO PRINTER - 09/23/2015 4:56 PM DIGITAL PHOTO PRINTER Hospital Encounter [facility] Raul Wang MD [address] [facility] [address] [place] [address] Medial epicondylitis of left elbow; Enthesopathy Social History Tobacco Use Types Packs/Day Years Used Date Smoking Tobacco: Never Assessed Comments Unknown Sex and Gender Information Value Date Recorded Sex Assigned at Not on file 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 DIGITAL PHOTO PRINTER Gender Identity Not on file Sexual Orientation Not on file documented as of this encounter Plan of Treatment Not on file documented as of this encounter Visit Diagnoses Diagnosis Medial epicondylitis of left elbow Enthesopathy Enthesopathy of unspecified site documented in this encounter
--- OUTSIDE RECORDS SUMMARY | 2024-07-21 10:50 | XMS_ITS | Encounter Summary ---
Author Organization [facility] Healthcare Address [address] [place] [address] Care Team Providers Care Comber Setter Name Role Phone Tomasz Martinez Primary Care Provider [phone] Reason for Referral * Diagnostic Imaging (Emergency) - Closed Specialty Diagnoses / Procedures Referred By Contac t Referred To Contact Diagnoses Contusion and laceration, cerebral with 1-24 hr loss of consciousness (CMS/HCC) (HCC) Procedures XR Foot Right 3 or More Views Jordy Ayala MD [address] [place] [address] Phone: tel: fax: [address] [address] Referral ID Status Reason Start Date Expiration Date Visits Re quested Visits Authorized [id number] Closed 02/01/2020 08/12/2021 1 1 Reason for Visit * Diagnostic Imaging (Emergency) - Closed Specialty Diagnoses / Procedures Referred By Contac t Referred To Contact Diagnoses Contusion and laceration, cerebral with 1-24 hr loss of consciousness (CMS/HCC) (HCC) Procedures XR Foot Right 3 or More Views Jordy Ayala MD [address] [place] [address] Phone: tel: fax: [address] [address] Referral ID Status Reason Start Date Expiration Date Visits Re quested Visits Authorized [id number] Closed 02/01/2020 08/12/2021 1 1 Encounter Details Date Type Department Care Team (Late st Contact Info) Description 02/01/2020 10:45 AM CDT - 02/01/2020 11:59 PM CDT Hospital Encounter [facility] [address] [place] [address] Jordy Ayala MD [address] [place] [id number] Contusion and laceration, cerebral with 1-24 hr loss of consciousness (CMS/HCC) Discharge Disposition: Discharge to home or self care Social History Tobacco Use Types Packs/Day Years Used Date Smoking Tobacco: Never Smokeless Tobacco: Never Comments Unknown Sex and Gender Information Value Date Recorded Sex Assigned at Not on file 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 1 raNITIdine (ZANTAC) 150 mg tablet Take 1 tablet (150 mg total) by mouth 2 (two) times a day 60 tablet 2 11/29/2018 3 documented as of this encounter Discharge Disposition Disposition Code Departure Means Destination Discharge to home or self care documented in this encounter Plan of Treatment Not on file documented as of this encounter Procedures Procedure Name Priority Date/Time Associated Diagnosis Comments XR FOOT RIGHT 3 OR MORE VIEWS STAT 02/01/2020 11:02 AM CDT Contusion and laceration, cerebral with 1-24 hr loss of consciousness (CMS/HCC) documented in this encounter Results * XR Foot Right 3 or More Views (02/01/2020 11:02 AM CDT) Anatomical Region Laterality Modality Lower Extremities, Foot Right Computed Radiography 02/01/2020 11:3 7 AM CDT Impressions 02/01/2020 11:39 AM CDT No acute findings. Electronically signed by: Karthikeyan Brody M.D. Narrative 02/01/2020 11:39 AM CDT EXAMINATION: XR FOOT RIGHT 3 OR MORE VIEWS. ?? TECHNIQUE: 3 views of the right foot HISTORY: Injury today, dorsal pain COMPARISON: 02/23/2017 FINDINGS: No fracture or dislocation. ??Dorsal soft tissues are mildly swollen. 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 Procedure Note Karthikeyan Brody MD - 02/01/2020 EXAMINATION: XR FOOT RIGHT 3 OR MORE VIEWS. TECHNIQUE: 3 views of the right foot HISTORY: Injury today, dorsal pain COMPARISON: 02/23/2017 FINDINGS: No fracture or dislocation. Dorsal soft tissues are mildly swollen. 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 IMPRESSION: No acute findings. Electronically signed by: Karthikeyan Brody M.D. Jordy Ayala MD IMG XR PROCEDURES Final Result documented in this encounter Visit Diagnoses Diagnosis Contusion and laceration, cerebral with 1-24 hr loss of consciousness (CMS/HCC) (HCC) Other and unspecified cerebral laceration and contusion, without mention of open intracranial wound, moderate (1-24 hours) loss of consciousness documented in this encounter Care Teams Comber Setter Relationship Specialty Start Date End Date Tomasz Martinez PA [address] [place] [address] PCP - General 12/15/17 documented as of this encounter
--- OUTSIDE RECORDS SUMMARY | 2024-07-21 11:16 | XMS_ITS | Clinical Summary ---
Author Organization [facility] Address [address] [place] [address] Phone Care Team Providers Care Crewman Main Battle Tank Name Role Phone Tomasz Martinez Primary Care Provider [phone] Allergies No known active allergies Medications levothyroxine [...] naloxone HCl (Narcan) 4 MG/0.1ML Liquid 1 Lott by Nasal route as needed (opioid overdose). [...] CDT - 04/30/2024 4:46 PM CDT Emergency [facility] Emergency 1 [place] [address] Robert Le, PAC Mobile cecum Discharge Disposition: Discharged to home or Selfcare 04/30/2024 Travel 04/28/2024 8:04 AM CDT - 04/28/2024 11:59 PM CDT Hospital [facility] Diagnostic Radiology [address] [place] [address] Piedad Jorge, MARGE, DIRECT CARE SPECIALIST Discharge Disposition: Discharged to home or Selfcare 04/28/2024 Travel 04/21/2024 Transcribe Orders [facility] Central Scheduling 1 [place] [address] Piedad Jorge, SEISMIC PROSPECTING SUPERVISOR, DIRECT CARE SPECIALIST 04/21/2024 Transcribe Orders [facility] Central Scheduling [address] [place] [address] Piedad Jorge, SEISMIC PROSPECTING SUPERVISOR, DIRECT CARE SPECIALIST Dysphagia, unspecified type 04/21/2024 Travel from Last [...] Dysphagia, unspecified type HELICOBACTER PYLORI BREATH TEST, [place] [facility] Routine 04/21/2024 11:47 AM CDT Gastroesophageal [...] PM T: ??04/30/2024 4:18 PM Report ID: [id number] Reading Location: ??[id number] Procedure Note Sam Herron MD - 04/30/2024 [...] Sam Herron M.D. AT: AT Report ID: [id number] Reading Location: [id number] IMPRESSION: 1. Dense column of contrast within [...] w/ Reflex (04/30/2024 1:45 PM CDT) Pathologist [facility] SPECIFIC GRAVITY 1.020 1.003 - 1.030 04/30/2024 2:45 PM CDT [facility] URINE PH 6.0 5.0 - 9.0 04/30/2024 2:45 PM CDT [facility] WBC ESTERASE 25 /ul(A) Negative 04/30/2024 2:45 PM CDT [facility] NITRITE Negative Negative 04/30/2024 2:45 PM CDT [facility] PROTEIN, RANDOM URINE 15 mg/dL(A) Negative 04/30/2024 2:45 PM CDT [facility] URINE GLUCOSE, QUAL Negative Negative 04/30/2024 2:45 PM CDT [facility] URINE KETONES Negative Negative 04/30/2024 2:45 PM CDT [facility] UROBILINOGEN Normal Normal mg/dL 04/30/2024 2:45 PM CDT [facility] URINE BLOOD Negative Negative eden/ul 04/30/2024 2:45 PM CDT [facility] URINALYSIS COLOR Yellow 04/30/20 24 2:45 PM CDT [facility] URINALYSIS CLARITY Slightly Cloudy 04/30/2024 2:45 PM CDT [facility] WBC (Urine) 0-5 Negative, 0-5 /hpf 04/30/2024 2:45 PM CDT [facility] URINE RBC'S 0-2 Negative, 0-2 /hpf 04/30/2024 2:45 PM CDT [facility] EPITHELIAL CELLS Small amount /lpf 2023 2:45 PM CDT [facility] BACTERIA, URINE Few(A) Negative /hpf 04/30/2024 2:45 PM CDT [facility] Urine URINE SPECIMEN / Unknown Non-Phlebotomy Collection / Unknown 04/30/2024 1:45 PM CDT 04/30/2024 1:55 PM CDT us Robert Le PAC URINE ORDERABLES Fin al Result [facility] [address] [place] [address] * (ABNORMAL) CBC with Auto Differential (04/30/2024 1:45 PM CDT) WBC 5.63 4.00 - 12.00 10(3)/mcL 04/30/2024 2:00 PM CDT [facility] RBC 4.29 3.80 - 5.30 10(6)/mcL 04/30/2024 2:00 PM CDT [facility] HEMOGLOBIN (HGB) 12.9 12.0 - 15.8 g/dL 04/30/2024 2:00 PM CDT [facility] HEMATOCRIT (HCT) 40.0 36.0 - 47.0 % 04/30/2024 2:00 PM CDT [facility] MCV 93.2 82.0 - 96.0 fL 04/30/2024 2:00 PM CDT [facility] MCH 30.1 26.0 - 34.0 pg 04/30/2024 2:00 PM CDT [facility] MCHC 32.3 31.0 - 36.0 g/dL 04/30/2024 2:00 PM CDT [facility] PLATELET COUNT 329 140 - 440 10(3)/mcL 04/30/2024 2:00 PM CDT [facility] RDW 13.1 11.8 - 15.5 % 04/30/2024 2:00 PM CDT [facility] MPV 10.0 9.7 - 12.4 fL 04/30/2024 2:00 PM CDT [facility] NEUTROPHILS 59.1 47.0 - 73.0 % 04/30/2024 2:00 PM CDT [facility] LYMPHOCYTES 27.2 18.0 - 42.0 % 04/30/2024 2:00 PM CDT [facility] MONOCYTES 7.5 4.0 - 12.0 % 04/30/2024 2:00 PM CDT [facility] EOSINOPHILS 5.7(H) 0.0 - 5.0 % 04/30/2024 2:00 PM CDT [facility] BASOPHILS 0.5 0.0 - 1.0 % 04/30/2024 2:00 PM CDT [facility] ABSOLUTE NEUTROPHILS 3.33 1.60 - 7.70 10(3)/[facility] 04/30/2024 2:00 PM CDT [facility] ABSOLUTE LYMPHOCYTES 1.53 1.30 - 3.20 10(3)/[facility] 04/30/2024 2:00 PM CDT [facility] ABSOLUTE MONOCYTES 0.42 0.20 - 1.00 10(3)/[facility] 04/30/2024 2:00 PM CDT [facility] ABSOLUTE EOSINOPHIL 0.32 0.00 - 0.40 10(3)/[facility] 04/30/2024 2:00 PM CDT [facility] ABSOLUTE BASOPHILS 0.03 0.00 - 0.10 10(3)/[facility] 04/30/2024 2:00 PM CDT [facility] NRBC PER 100 WBC 0 04/30/20 2:00 PM CDT [facility] Blood Venipuncture / Unknown 04/30/2024 1:45 PM CDT 04/30/2024 1:55 PM CDT us Robert Le PAC HEMATOLOGY ORDERABLE S Final Result [facility] [address] [place] [address] * Lipase (04/30/2024 1:45 PM CDT) LIPASE 15 8 - 78 U/L 04/30/2024 2:17 PM CDT [facility] Blood Venipuncture / Unknown 04/30/2024 1:45 PM CDT 04/30/2024 1:55 PM CDT Robert Alvarez Rey PAC CHEMISTRY ORDERABLES Final Result [facility] [address] [place] [address] * CMP (04/30/2024 1:45 PM CDT) Pathologist [facility] SODIUM 140 136 - 145 mmol/L 04/30/2024 2:17 PM CDT [facility] POTASSIUM 3.6 3.5 - 5.1 mmol/L 04/30/2024 2:17 PM CDT [facility] CHLORIDE 105 98 - 107 mmol/L 04/30/2024 2:17 PM CDT [facility] CO2, VENOUS 27 22 - 30 mmol/L 04/30/2024 2:17 PM CDT [facility] ANION GAP 11.6 <18.0 mmol/L 04/30/2024 2:17 PM CDT [facility] GLUCOSE 91 70 - 99 mg/dL 04/30/2024 2:17 PM CDT [facility] BUN 13 10 - 20 mg/dL 04/30/2024 2:17 PM CDT [facility] CREATININE, BLOOD 0.83 0.60 - 1.00 mg/dL 04/30/2024 2:17 PM CDT [facility] BUN/CREATININE RATIO 16 12 - 20 ratio 04/30/2024 2:17 PM CDT [facility] TOTAL PROTEIN 8.2 6.3 - 8.2 g/dL 04/30/2024 2:17 PM CDT [facility] ALBUMIN 4.3 3.5 - 5.0 g/dL 04/30/2024 2:17 PM CDT [facility] A/G RATIO 1.1 1.0 - 2.2 04/30/2024 2:17 PM CDT [facility] CALCIUM 9.9 8.7 - 10.5 mg/dL 04/30/2024 2:17 PM CDT [facility] T BILI 0.3 0.2 - 1.2 mg/dL 04/30/2024 2:17 PM CDT [facility] SGOT (AST) 26 5 - 34 U/L 04/30/2024 2:17 PM CDT [facility] SGPT (ALT) 35 0 - 55 U/L 04/30/2024 2:17 PM CDT [facility] ALKALINE PHOSPHATASE 78 40 - 150 U/L 04/30/2024 2:17 PM CDT [facility] GFR, ESTIMATED >60 >=60 04/30/2024 2:17 PM CDT [facility] Comment: Creatinine Clearance is the preferred criteria for selecting drug dose adjustments in renally impaired patients. ??The GFR is provided as additional pertinent clinical information. GFR is reported in mL/min/1.73 sq m. Calculation based on the Chronic Kidney Disease Epidemiology Collaboration (CKD- EPI) equation refit without adjustment for race. GFR, EST. >60 >=60 024 2:17 PM CDT [facility] GFR, EST. NONAFRICAN >60 >=60 04/30/2024 2:17 PM CDT [facility] Blood Venipuncture / Unknown 04/30/2024 1:45 PM CDT 04/30/2024 1:55 PM CDT us Robert Le PAC CHEMISTRY ORDERABLES Final Result [facility] [address] [place] [address] * Gold Top Tube (04/30/2024 1:42 PM CDT) Blood No Phlebotomy Charged / Unknown 04/30/2024 1:42 PM CDT 04/30/2024 1:57 PM CDT Robert Le PAC CHEMISTRY ORDERABLES Final Result Performing Organization Address [facility] Co de Phone Number [facility] [address] [place] [address] * Blue Top Tube (04/30/2024 1:42 PM CDT) Blood No Phlebotomy Charged / Unknown 04/30/2024 1:42 PM CDT 04/30/2024 1:57 PM CDT Robert Le PAC HEMATOLOGY ORDERABLE S Final Result Performing Organization Address [facility] de Phone Number [facility] [address] [place] [address] * XR ESOPHAGRAM (04/28/2024 8:46 AM CDT) [...] PM T: ??04/28/2024 2:34 PM Report ID: [id number] Reading Location: ??[id number] Procedure Note Jerzy Major MD - 04/28/2024 [...] Jerzy Major M.D. AG: JORGE Report ID: [id number] Reading Location: [id number] IMPRESSION: 1. No significant stricture is seen. Tiny sliding hiatal hernia. Follow-up upper endoscopy is recommended for further evaluation. us Piedad Jorge APRN, CNP IMG FLUOROSCOPY ORDERAB LES Final Result * (ABNORMAL) HELICOBACTER PYLORI BREATH TEST, [place] [facility] (04/21/2024 11:47 AM CDT) H. PYLORI C UREA BREATH TEST Positive( A) Negative 04/24/2024 10:26 AM CDT [facility] [employer] Comment: Result indicates the presence of active Helicobacter pylori infection. Test Performed by: [facility] [address] [place] [address] Inspector [employer] Circ[employer]: Margarita Benitez Ph.D.; CLIA# [id number] Breath Non-Phlebotomy Collection / Unknown 04/21/2024 11:47 AM CDT 04/21/2024 12:27 PM CDT us Piedad Jorge APRN, CNP LAB SEND OUTS Final R esult [facility] from Last 3 Months Insurance [facility] Care Teams Crewman Main Battle Tank Relationship Specialty Start Date End Date Tomasz Martinez PAC [address] [place] [address] PCP - General Physician Concrete Bucket Unloader 06/25/20
--- OUTSIDE RECORDS SUMMARY | 2024-07-21 11:16 | XMS_ITS | Encounter Summary ---
Author Organization [facility] Address [address] [place] [address] Phone Care Team Providers Care Traffic Superintendent Name Role Phone Tomasz Martinez Primary Care Provider [phone] Encounter Details Date Type Department Care Team (Late st Contact Info) Description 03/25/2022 Patient Outreach [facility] - Endocrinology [facility] [address] [place] [id number] Ford Nayak MD [address] [phone] Social History Tobacco Use Types Packs/Day Years [...] on filedocumented in this encounter Care Teams Traffic Superintendent Relationship Specialty Start Date End Date Tomasz Martinez, CRISSY [address] [place] [address] PCP - General Physician Manufacturing Weaver 06/25/20 documented as of this encounter
--- OUTSIDE RECORDS SUMMARY | 2024-07-21 11:16 | XMS_ITS | Encounter Summary ---
Author Organization [employer] Care Team Providers Care Fisher Trap Name Role Phone Tomasz Martinez Primary Care Provider [phone] Encounter Details Date Type Department Care Team [...] on filedocumented in this encounter Care Teams Fisher Trap Relationship Specialty Start Date End Date Tomasz Martinez PAC [address] [place] [address] PCP - General Physician Slitting Machine Operator Helper 06/25/20 documented as of this encounter
--- OUTSIDE RECORDS SUMMARY | 2024-07-21 11:16 | XMS_ITS | Encounter Summary ---
Author Organization [employer] Care Team Providers Care Component Design Engineer Name Role Phone Tomasz Martinez Primary Care Provider [phone] Encounter Details Date Type Department Care Team [...] on filedocumented in this encounter Care Teams Component Design Engineer Relationship Specialty Start Date End Date Tomasz Martinez PAC [address] [place] [address] PCP - General Physician Foreign Exchange Student Coordinator 06/25/20 documented as of this encounter
--- OUTSIDE RECORDS SUMMARY | 2024-07-21 11:16 | XMS_ITS | Encounter Summary ---
Author Organization [facility] Address [address] [place] [address] Phone Care Team Providers Care Research Chemical Engineer Name Role Phone Tomasz Martinez Primary Care Provider [phone] Reason for Visit * Reason Comments Back Pain Encounter Details Date Type Department Care Team (Late st Contact Info) Description 11/11/2022 3:45 PM CDT - 11/11/2022 5:37 PM CDT Emergency [facility] Emergency [address] [place] [address] Bipin Kelly MD [address] [place] [address] Sacroiliac pain Discharge Disposition: Discharged to home [...] through Care Everywhere. * Sacroiliac Joint Dysfunction (Bulgarian) documented in this encounter Medications at Time [...] naloxone HCl (Narcan) 4 MG/0.1ML Liquid 1 Jolon by Nasal route as needed (opioid overdose). [...] per ambulatory mode with self as responsible green party. * Candace Fischer RN - 11/11/2022 5:08 [...] naloxone HCl (Narcan) 4 MG/0.1ML Liquid 1 Jolon by Nasal route as needed (opioid overdose). [...] processes. Interventions and treatments in the ER Butler 5 mg I considered escalation of care including observation versus admission but not warranted due to mild symptoms and admission is not indicated Plan for discharge to home. Discussed the case with patient. I will prescribe Butler 5/325 20. 1 tabp.o. q.6 hours as needed. Patient was also given diclofenac. She should use the Butler only for severe pain Patient will follow [...] NALOXONE HCL (NARCAN) 4 MG/0.1ML LIQUID 1 Jolon by Nasal route as needed (opioid overdose). administer for symptoms of overdose (severe sleepiness, breathing problems, not responsive). Call 911. May use additional dose to repeat 1 spray intranasally in 2-3 minutes if needed. I have advised the patient to follow-up with: Tomasz Martinez, [address] [address] In 1 week Dispostion: Discharge * Candace [...] 2) increasing dosage, or 3) changing to PLASTIC OUTFITTER. Given 11/11/2022 4:13 PM CDT 1 Tablet [...] 2) increasing dosage, or 3) changing to PLASTIC OUTFITTER. 1613 (Given - Provid er: Candace Fischer RN) documented in this encounter Care Teams Research Chemical Engineer Relationship Specialty Start Date End Date Tomasz Martinez, CRISSY [address] [place] [address] PCP - General Physician Factory Maintenance Manager 06/25/20 documented as of this encounter
--- OUTSIDE RECORDS SUMMARY | 2024-07-21 11:16 | XMS_ITS | Encounter Summary ---
Author Organization [employer] Care Team Providers Care Stitch Welder Name Role Phone Tomasz Martinez Primary Care Provider [phone] Encounter Details Date Type Department Care Team [...] on filedocumented in this encounter Care Teams Stitch Welder Relationship Specialty Start Date End Date Tomasz Martinez PAC [address] [place] [address] PCP - General Physician Maintenance Journeyman 06/25/20 documented as of this encounter
--- OUTSIDE RECORDS SUMMARY | 2024-07-21 11:16 | XMS_ITS | Encounter Summary ---
Author Organization [employer] Care Team Providers Care Health Services Director Name Role Phone Tomasz Martinez Primary Care Provider [phone] Encounter Details Date Type Department Care Team [...] on filedocumented in this encounter Care Teams Health Services Director Relationship Specialty Start Date End Date Tomasz Martinez PAC [address] [place] [address] PCP - General Physician Health Claims Examiner 06/25/20 documented as of this encounter
--- OUTSIDE RECORDS SUMMARY | 2024-07-21 11:16 | XMS_ITS | Encounter Summary ---
Author Organization [employer] Care Team Providers Care Hospitality Associate Name Role Phone Tomasz Martinez Primary Care Provider [phone] Ford Nayak MD Unavailable Encounter Details Date [...] on filedocumented in this encounter Care Teams Hospitality Associate Relationship Specialty Start Date End Date Tomasz Martinez PAC [address] [place] [address] PCP - General Physician Net Maker 06/25/20 Ford Nayak MD [address] [phone] Consulting Physician Endocrinology 12/17/21 02/15/22 documented as of this encounter
--- OUTSIDE RECORDS SUMMARY | 2024-07-21 11:16 | XMS_ITS | Encounter Summary ---
Author Organization [employer] Care Team Providers Care Ecological Economist Name Role Phone Tomasz Martinez Primary Care Provider [phone] Encounter Details Date Type Department Care Team [...] on filedocumented in this encounter Care Teams Ecological Economist Relationship Specialty Start Date End Date Tomasz Martinez PAC [address] [place] [address] PCP - General Physician Telesales Specialist 06/25/20 documented as of this encounter
--- OUTSIDE RECORDS SUMMARY | 2024-07-21 11:16 | XMS_ITS | Encounter Summary ---
Author Organization [facility] Address [address] [place] [address] Phone Care Team Providers Care Mechanism Inspector Name Role Phone Tomasz Martinez Primary Care Provider [phone] Encounter Details Date Type Department Care Team (Late st Contact Info) Description 07/06/2023 Transcribe Orders [facility] Admitting [address] [place] [address] Tomasz Martinez PAC [address] [place] [address] Lumbar radiculopathy (Primary Dx) Social History Tobacco [...] unspecified documented in this encounter Care Teams Mechanism Inspector Relationship Specialty Start Date End Date Tomasz Martinez PAC [address] [place] [address] PCP - General Physician Tying In Machine Operator 06/25/20 documented as of this encounter
--- OUTSIDE RECORDS SUMMARY | 2024-07-21 11:16 | XMS_ITS | Encounter Summary ---
Author Organization [facility] Address [address] [place] [address] Phone Care Team Providers Care News Reporter Name Role Phone Tomasz Martinez Primary Care Provider [phone] Reason for Visit * Radiology Services (Routine) - Closed Specialty Diagnoses / Procedures Referred By Contac t Referred To Contact Radiology Diagnoses Lumbar radiculopathy Procedures XR LUMBAR SPINE 2 OR 3 VIEWS XR LUMBAR SPINE MINIMUM 4 VIEWS Tomasz Martinez, PAC [address] [place] [address] Phone: tel: fax: Referral ID Status Reason Start Date Expiration Date Visits Re quested Visits Authorized [id number] Closed 07/06/2023 1 1 Encounter Details Date Type Department Care Team (Late st Contact Info) Description 07/06/2023 3:14 PM PLATFORM MATERIAL HANDLING SUPERVISOR - 07/06/2023 11:59 PM PLATFORM MATERIAL HANDLING SUPERVISOR Hospital [facility] [address] [place] [address] Tomasz Martinez, PAC [address] [place] [address] Discharge Disposition: Discharged to home or Selfcare [...] naloxone HCl (Narcan) 4 MG/0.1ML Liquid 1 Hilliards by Nasal route as needed (opioid overdose). [...] OR 3 VIEWS Routine 07/06/2023 3:25 PM PLATFORM MATERIAL HANDLING SUPERVISOR Lumbar radiculopathy documented in this encounter Results * XR LUMBAR SPINE 2 OR 3 VIEWS (07/06/2023 3:25 PM PLATFORM MATERIAL HANDLING SUPERVISOR) Anatomical Region Laterality Modality Spine, L-spine N/A Digital Radiogra phy 07/07/2023 10:0 6 AM PLATFORM MATERIAL HANDLING SUPERVISOR Impressions 07/07/2023 10:08 AM PLATFORM MATERIAL HANDLING SUPERVISOR IMPRESSION: 1. ?? The L1 inferior endplate irregularity is new when compared to the previous lumbar spine radiographs dated 07/01/2011 but remains age indeterminate. ??Please correlate with physical examination. 2. ?? Ukhn-bj-[place]oka lumbar degenerative changes have progressed in the interval. 3. ?? Further evaluation with MRI as clinically indicated. Narrative 07/07/2023 10:08 AM PLATFORM MATERIAL HANDLING SUPERVISOR EXAM DESCRIPTION: XR LUMBAR SPINE 2 OR 3 VIEWS REASON FOR STUDY: RT upper leg pain x 3 days no lower back pain no injury or surgery ? TECHNIQUE: Frontal and lateral ??radiographic view(s) of the ??lumbar ?? spine. COMPARISON: Lumbar spine radiographs dated 07/01/2011 and relevant portions of the CT abdomen and pelvis dated 02/21/2014. FINDINGS: 5 crz-kpw-ysjspeo lumbar type vertebral bodies. ??Apparent dextroconvex curvature. [...] AM T: ??07/07/2023 10:06 AM Report ID: [id number] Reading Location: ??[id number] Procedure Note Deshawn Cezar Sri - 07/07/2023 EXAM DESCRIPTION: XR LUMBAR SPINE 2 OR 3 VIEWS REASON FOR STUDY: RT upper leg pain x 3 days no lower back pain no injury or surgery TECHNIQUE: Frontal and lateral radiographic view(s) of the lumbar spine. COMPARISON: Lumbar spine radiographs dated 07/01/2011 and relevant portions of the CT abdomen and pelvis dated 02/21/2014. FINDINGS: 5 wie-yrv-zemigtw lumbar type vertebral bodies. Apparent dextroconvex curvature. [...] 10:06 AM - Electronically signed by Cezar Hess D.O. AP: AP Report ID: [id number] Reading Location: [id number] IMPRESSION: 1. The L1 inferior endplate irregularity is new when compared to the previous lumbar spine radiographs dated 07/01/2011 but remains age indeterminate. Please correlate with physical examination. 2. Qczc-ld-ocflznxi lumbar degenerative changes have progressed in the interval. 3. Further evaluation with MRI as clinically indicated. Tomasz Martinez PAC IMG DIAGNOSTIC ORDERABLES Fin al Result documented in this encounter Visit Diagnoses Diagnosis Lumbar radiculopathy Thoracic or lumbosacral neuritis or radiculitis, unspecified documented in this encounter Care Teams News Reporter Relationship Specialty Start Date End Date Tomasz Martinez, PAC [address] [place] [address] PCP - General Physician Blow Up Operator 06/25/20 documented as of this encounter
--- OUTSIDE RECORDS SUMMARY | 2024-07-21 11:16 | XMS_ITS | Encounter Summary ---
Author Organization [employer] Care Team Providers Care Radiotelephone Technical Operator Name Role Phone Tomasz Martinez Primary Care Provider [phone] Encounter Details Date Type Department Care Team [...] on filedocumented in this encounter Care Teams Radiotelephone Technical Operator Relationship Specialty Start Date End Date Tomasz Martinez PAC [address] [place] [address] PCP - General Physician Press Operator Heavy Duty 06/25/20 documented as of this encounter
--- OUTSIDE RECORDS SUMMARY | 2024-07-21 11:16 | XMS_ITS | Encounter Summary ---
Author Organization [employer] Care Team Providers Care Bilingual Speech Therapist Name Role Phone Tomasz Martinez Primary Care Provider [phone] Encounter Details Date Type Department Care Team [...] 19 07/12/2023 07/12/2023 07/22/2023 12:1 6 AM SOLE CONDITIONER documented as of this encounter Care Teams Bilingual Speech Therapist Relationship Specialty Start Date End Date Tomasz Martinez PAC [address] [place] [address] PCP - General Physician Adz Worker 06/25/20 documented as of this encounter
--- OUTSIDE RECORDS SUMMARY | 2024-07-21 11:16 | XMS_ITS | Encounter Summary ---
Author Organization [facility] Address [address] [place] [address] Phone Care Team Providers Care Manager Subway Name Role Phone Tomasz Martinez Primary Care Provider [phone] Reason for Visit * Reason Comments Flank Pain Encounter Details Date Type Department Care Team ([facility] st Contact Info) Description 04/06/2024 6:24 AM CDT - 04/06/2024 9:34 AM CDT Emergency [facility] Emergency [address] [place] [address] Cesar Galvan MD [address] [place] [address] Left flank pain Discharge Disposition: Discharged to [...] naloxone HCl (Narcan) 4 MG/0.1ML Liquid 1 [place] by Nasal route as needed (opioid overdose). [...] provide teach back of education. * Mirlande Colmean RN - 04/06/2024 8:59 AM CDT Patient [...] naloxone HCl (Narcan) 4 MG/0.1ML Liquid 1 [place] by Nasal route as needed (opioid overdose). [...] Carl Espinosa M.D. MM: MM Report ID: [id number] Reading Location: [id number] Medical Decision Making 58-year-old female presenting emergency [...] videos and all your education online visit, [email or web address] or scan this QR code with your [...] your condition for any changes. Medicines Take shzv-ait-ploepdk and prescription medicines only as told by your health care provider. Ask your provider if the medicine prescribed to you: ? Requires you to avoid driving or using machinery. ? Can cause constipation. You may need to take these actions to prevent or treat constipation: ? Take dbco-rds-qfdnagq or prescription medicines. ? Eat foods that [...] 2006-04-28 Document Updated: 2023-08-06 Document Reviewed: 2023-04-14 [employer] Patient Education ? 2023 [employer]. * PatientPass Patient Instructions - Cesar Galvan MD - 04/06/2024 9:23 AM CDT Images from the original note were not included. Patient Education Table of Contents Flank Pain, Adult To view videos and all your education online visit, [email or web address] or scan this QR code with your [...] told by your health care provider. Take qvjp-xjv-bjrbmcj and prescription medicines only as told by [...] 2006-09-09 Document Updated: 2021-09-29 Document Reviewed: 2021-09-29 [employer] Patient Education ? 2023 [employer] documented in this encounter Plan of [...] AM T: ??04/06/2024 8:55 AM Report ID: [id number] Reading Location: [id number] Procedure Note Carl Espinosa MD - 04/06/2024 [...] Carl Espinosa M.D. MM: MM Report ID: [id number] Reading Location: [id number] IMPRESSION: Trace asymmetrical left perinephric fat stranding [...] to ensure stability. us Cesar Galvan MD [facility] CT ORDERABLES Phyllis l Result * (ABNORMAL) Urinalysis w/ Reflex (04/06/2024 7:00 AM CDT) SPECIFIC GRAVITY 1.020 1.003 - 1.030 04/06/2024 8:27 AM CDT [facility] URINE PH 6.0 5.0 - 9.0 04/06/2024 8:27 AM CDT [facility] WBC ESTERASE Negative Negative 04/06/2024 8:27 AM CDT [facility] NITRITE Negative Negative 04/06/2024 8:27 AM CDT [facility] PROTEIN, RANDOM URINE 15 mg/dL(A) Negative 04/06/2024 8:27 AM CDT [facility] URINE GLUCOSE, QUAL Negative Negative 04/06/2024 8:27 AM CDT [facility] URINE KETONES Negative Negative 04/06/2024 8:27 AM CDT [facility] UROBILINOGEN Normal Normal mg/dL 04/06/2024 8:27 AM CDT [facility] URINE BLOOD Negative Negative eden/ul 04/06/2024 8:27 AM CDT [facility] URINALYSIS COLOR Yellow 04/06/20 8:27 AM CDT [facility] URINALYSIS CLARITY Clear 04/06/2024 8:27 AM CDT [facility] Urine URINE SPECIMEN / Unknown Non-Phlebotomy Collection / Unknown 04/06/2024 7:00 AM CDT 04/06/2024 7:46 AM CDT us Cesar Galvan MD URINE ORDERABLES Final Result Performing Organization Address City/[facility]/ZIP Co de Phone Number [facility] [address] [place] [address] * Gold Top Tube (04/06/2024 6:46 AM CDT) Blood No Phlebotomy Charged / Unknown 04/06/2024 6:46 AM CDT 04/06/2024 7:34 AM CDT Cesar Galvan MD CHEMISTRY ORDERABLES F inal Result Performing Organization Address City/[facility]/ZIP Co de Phone Number [facility] [address] [place] [address] * Blue Top Tube (04/06/2024 6:46 AM CDT) Blood No Phlebotomy Charged / Unknown 04/06/2024 6:46 AM CDT 04/06/2024 7:34 AM CDT us Cesar Galvan MD HEMATOLOGY ORDERABLES Final Result Performing Organization Address City/[facility] Co de Phone Number [facility] [address] [place] [address] * (ABNORMAL) CBC with Auto Differential (04/06/2024 6:46 AM CDT) WBC 4.35 4.00 - 12.00 10(3)/mcL 04/06/2024 6:58 AM CDT [facility] RBC 3.97 3.80 - 5.30 10(6)/mcL 04/06/2024 6:58 AM CDT [facility] HEMOGLOBIN (HGB) 12.1 12.0 - 15.8 g/dL 04/06/2024 6:58 AM CDT [facility] HEMATOCRIT (HCT) 38.2 36.0 - 47.0 % 04/06/2024 6:58 AM CDT [facility] MCV 96.2(H) 82.0 - 96.0 fL 04/06/2024 6:58 AM CDT [facility] MCH 30.5 26.0 - 34.0 pg 04/06/2024 6:58 AM CDT [facility] MCHC 31.7 31.0 - 36.0 g/dL 04/06/2024 6:58 AM CDT [facility] PLATELET COUNT 283 140 - 440 10(3)/[facility] 04/06/2024 6:58 AM CDT [facility] RDW 13.3 11.8 - 15.5 % 04/06/2024 6:58 AM CDT [facility] MPV 10.0 9.7 - 12.4 fL 04/06/2024 6:58 AM CDT [facility] NEUTROPHILS 58.4 47.0 - 73.0 % 04/06/2024 6:58 AM CDT [facility] LYMPHOCYTES 25.3 18.0 - 42.0 % 04/06/2024 6:58 AM CDT [facility] MONOCYTES 9.2 4.0 - 12.0 % 04/06/2024 6:58 AM CDT [facility] EOSINOPHILS 6.4(H) 0.0 - 5.0 % 04/06/2024 6:58 AM CDT [facility] BASOPHILS 0.7 0.0 - 1.0 % 04/06/2024 6:58 AM CDT [facility] ABSOLUTE NEUTROPHILS 2.54 1.60 - 7.70 10(3)/[facility] 04/06/2024 6:58 AM CDT [facility] ABSOLUTE LYMPHOCYTES 1.10(L) 1.30 - 3.20 10(3)/[facility] 04/06/2024 6:58 AM CDT [facility] ABSOLUTE MONOCYTES 0.40 0.20 - 1.00 10(3)/[facility] 04/06/2024 6:58 AM CDT [facility] ABSOLUTE EOSINOPHIL 0.28 0.00 - 0.40 10(3)/[facility] 04/06/2024 6:58 AM CDT [facility] ABSOLUTE BASOPHILS 0.03 0.00 - 0.10 10(3)/[facility] 04/06/2024 6:58 AM CDT [facility] NRBC PER 100 WBC 0 04/06/20 24 6:58 AM CDT [facility] Blood Venipuncture / Unknown 04/06/2024 6:46 AM CDT 04/06/2024 6:52 AM CDT us Cesar Galvan MD HEMATOLOGY ORDERABLES Final Result [facility] [address] [place] [address] * (ABNORMAL) CMP (04/06/2024 6:46 AM CDT) SODIUM 139 136 - 145 mmol/L 04/06/2024 7:14 AM CDT [facility] POTASSIUM 4.2 3.5 - 5.1 mmol/L 04/06/2024 7:14 AM CDT [facility] CHLORIDE 105 98 - 107 mmol/L 04/06/2024 7:14 AM CDT [facility] CO2, VENOUS 24 22 - 30 mmol/L 04/06/2024 7:14 AM CDT [facility] ANION GAP 14.2 <18.0 mmol/L 04/06/2024 7:14 AM [facility] GLUCOSE 103(H) 70 - 99 mg/dL 04/06/2024 7:14 AM T [facility] BUN 10 10 - 20 mg/dL 04/06/2024 7:14 AM [facility] CREATININE, BLOOD 0.72 0.60 - 1.00 mg/dL 04/06/2024 7:14 AM T [facility] BUN/CREATININE RATIO 14 12 - 20 ratio 04/06/2024 7:14 AM [facility] TOTAL PROTEIN 7.6 6.3 - 8.2 g/dL 04/06/2024 7:14 AM [facility] ALBUMIN 3.8 3.5 - 5.0 g/dL 04/06/2024 7:14 AM [facility] A/G RATIO 1.0 1.0 - 2.2 04/06/2024 7:14 AM [facility] CALCIUM 9.3 8.7 - 10.5 mg/dL 04/06/2024 7:14 AM [facility] T BILI 0.3 0.2 - 1.2 mg/dL 04/06/2024 7:14 AM [facility] SGOT (AST) 22 5 - 34 U/L 04/06/2024 7:14 AM [facility] Comment: Specimen is hemolyzed. In vitro hemolysis could affect results. Clinical correlation advised. SGPT (ALT) 17 0 - 55 U/L 04/06/2024 7:14 AM [facility] ALKALINE PHOSPHATASE 79 40 - 150 U/L 04/06/2024 7:14 AM [facility] GFR, ESTIMATED >60 >=60 04/06/2024 7:14 AM [facility] Comment: Creatinine Clearance is the preferred criteria for selecting drug dose adjustments in renally impaired patients. ??The GFR is provided as additional pertinent clinical information. GFR is reported in mL/min/1.73 sq m. Calculation based on the Chronic Kidney Disease Epidemiology Collaboration (CKD- EPI) equation refit without adjustment for race. GFR, EST. >60 >=60 024 7:14 AM CDT [facility] GFR, EST. NONAFRICAN >60 >=60 04/06/2024 7:14 AM CDT [facility] Blood Venipuncture / Unknown 04/06/2024 6:46 AM CDT 04/06/2024 6:52 AM CDT Cesar Galvan MD CHEMISTRY ORDERABLES F inal Result [facility] [address] [place] [address] documented in this encounter Visit Diagnoses Diagnosis [...] RN) documented in this encounter Care Teams Manager Subway Relationship Specialty Start Date End Date Tomasz Martinez, PAC [address] [place] [id number] PCP - General Physician Maintenance Assistant 06/25/20 documented as of this encounter
--- OUTSIDE RECORDS SUMMARY | 2024-07-21 11:16 | XMS_ITS | Encounter Summary ---
Author Organization [facility] Address [address] [place] [address] Phone Care Team Providers Care Second Floor Operator Name Role Phone Tomasz Martinez Primary Care Provider [phone] Reason for Visit * Reason Comments Abdominal Pain Encounter Details Date Type Department Care Team ([facility] st Contact Info) Description 04/30/2024 1:23 PM CDT - 04/30/2024 4:46 PM CDT Emergency [facility] Emergency 1 [place] [address] Robert Le, PAC [address] [place] [address] Mobile cecum Discharge Disposition: Discharged to home [...] naloxone HCl (Narcan) 4 MG/0.1ML Liquid 1 [place] by Nasal route as needed (opioid overdose). [...] per ambulatory mode with spouse as responsible alliance party. SL D/C'ed with Emmett cath intact. Pt [...] naloxone HCl (Narcan) 4 MG/0.1ML Liquid 1 [place] by Nasal route as needed (opioid overdose). [...] Sam Herron M.D. AT: AT Report ID: [id number] Reading Location: [id number] Medical Decision Making See HPI. Abd labs [...] videos and all your education online visit, [email or web address] or scan this QR code with your [...] bacteria. Follow these instructions at home: Take vcui-tkj-lsuuwnt and prescription medicines only as told by [...] and water are not available, use hand structural rigger. ? Do not eat food or drink [...] 2016-11-09 Document Updated: 2022-02-04 Document Reviewed: 2022-02-04 [employer] Patient Education ? 2023 [employer]. documented in this encounter Plan of Treatment [...] PM T: ??04/30/2024 4:18 PM Report ID: [id number] Reading Location: ??[id number] Procedure Note Sam Herron MD - 04/30/2024 [...] Sam Herron M.D. AT: AT Report ID: [id number] Reading Location: [id number] IMPRESSION: 1. Dense column of contrast within short segmental bowel in the right lower quadrant/right hemipelvis, likely the cecum with extensive streak artifact limiting evaluation at that segment . Please note that the cecum was positioned in the right upper quadrant on prior CT on 04/06/2024. These findings could reflect mobile cecum. 2. No CT evidence of bowel obstruction or perforation. us Robert eL PAC IMG CT ORDERABLES Fi nal Result * (ABNORMAL) CBC with Auto Differential (04/30/2024 1:45 PM CDT) WBC 5.63 4.00 - 12.00 10(3)/mcL 04/30/2024 2:[address] [facility] RBC 4.29 3.80 - 5.30 10(6)/mcL 04/30/2024 2:[address] [facility] HEMOGLOBIN (HGB) 12.9 12.0 - 15.8 g/dL 04/30/2024 2:[address] [facility] HEMATOCRIT (HCT) 40.0 36.0 - 47.0 % 04/30/2024 2:[address] [facility] MCV 93.2 82.0 - 96.0 fL 04/30/2024 2:[address] [facility] MCH 30.1 26.0 - 34.0 pg 04/30/2024 2:[address] [facility] MCHC 32.3 31.0 - 36.0 g/dL 04/30/2024 2:[address] [facility] PLATELET COUNT 329 140 - 440 10(3)/mcL 04/30/2024 2:[address] [facility] RDW 13.1 11.8 - 15.5 % 04/30/2024 2:[address] [facility] MPV 10.0 9.7 - 12.4 fL 04/30/2024 2:[address] [facility] NEUTROPHILS 59.1 47.0 - 73.0 % 04/30/2024 2:[address] [facility] LYMPHOCYTES 27.2 18.0 - 42.0 % 04/30/2024 2:[address] [facility] MONOCYTES 7.5 4.0 - 12.0 % 04/30/2024 2:[address] [facility] EOSINOPHILS 5.7(H) 0.0 - 5.0 % 04/30/2024 2:[address] [facility] BASOPHILS 0.5 0.0 - 1.0 % 04/30/2024 2:[address] [facility] ABSOLUTE NEUTROPHILS 3.33 1.60 - 7.70 10(3)/mcL 04/30/2024 2:[address] [facility] ABSOLUTE LYMPHOCYTES 1.53 1.30 - 3.20 10(3)/[facility] 04/30/2024 2:[address] [facility] ABSOLUTE MONOCYTES 0.42 0.20 - 1.00 10(3)/[facility] 04/30/2024 2:00 PM CDT [facility] ABSOLUTE EOSINOPHIL 0.32 0.00 - 0.40 10(3)/[facility] 04/30/2024 2:[address] [facility] ABSOLUTE BASOPHILS 0.03 0.00 - 0.10 10(3)/[facility] 04/30/2024 2:00 PM CDT [facility] NRBC PER 100 WBC 0 04/30/20 24 2:00 PM CDT [facility] Blood Venipuncture / Unknown 04/30/2024 1:45 PM CDT 04/30/2024 1:55 PM CDT us Robert Le PAC HEMATOLOGY ORDERABLE S Final Result [facility] [address] [place] [address] * (ABNORMAL) Urinalysis w/ Reflex (04/30/2024 1:45 PM CDT) SPECIFIC GRAVITY 1.020 1.003 - 1.030 04/30/2024 2:45 PM CDT [facility] URINE PH 6.0 5.0 - 9.0 04/30/2024 2:45 PM CDT [facility] WBC ESTERASE 25 /ul(A) Negative 04/30/2024 2:45 PM CDT [facility] NITRITE Negative Negative 04/30/2024 2:45 PM CDT [facility] PROTEIN, RANDOM URINE 15 mg/dL(A) Negative 04/30/2024 2:45 PM CDT [facility] URINE GLUCOSE, QUAL Negative Negative 04/30/2024 2:45 PM CDT [facility] URINE KETONES Negative Negative 04/30/2024 2:45 PM CDT [facility] UROBILINOGEN Normal Normal mg/dL 04/30/2024 2:[address] [facility] URINE BLOOD Negative Negative eden/ul 04/30/2024 2:45 PM CDT [facility] URINALYSIS COLOR Yellow 04/30/20 2:45 PM CDT [facility] URINALYSIS CLARITY Slightly Cloudy 04/30/2024 2:[address] [facility] WBC (Urine) 0-5 Negative, 0-5 /hpf 04/30/2024 2:[address] [facility] URINE RBC'S 0-2 Negative, 0-2 /hpf 04/30/2024 2:[address] [facility] EPITHELIAL CELLS Small amount /lpf 2023 2:45 PM CDT [facility] BACTERIA, URINE Few(A) Negative /hpf 04/30/2024 2:[address] [facility] Urine URINE SPECIMEN / Unknown Non-Phlebotomy Collection / Unknown 04/30/2024 1:45 PM CDT 04/30/2024 1:55 PM CDT us Robert Le PAC URINE ORDERABLES Fin al Result [facility] [address] [place] [address] * Lipase (04/30/2024 1:45 PM CDT) LIPASE 15 8 - 78 U/L 04/30/2024 2:17 PM CDT [facility] Blood Venipuncture / Unknown 04/30/2024 1:45 PM CDT 04/30/2024 1:55 PM CDT Robert Alvarez Rey PAC CHEMISTRY ORDERABLES Final Result [facility] [address] [place] [address] * CMP (04/30/2024 1:45 PM CDT) SODIUM 140 136 - 145 mmol/L 04/30/2024 2:17 PM CDT [facility] POTASSIUM 3.6 3.5 - 5.1 mmol/L 04/30/2024 2:17 PM CDT [facility] CHLORIDE 105 98 - 107 mmol/L 04/30/2024 2:17 PM CDT [facility] CO2, VENOUS 27 22 - 30 mmol/L 04/30/2024 2:17 PM CDT [facility] ANION GAP 11.6 <18.0 mmol/L 04/30/2024 2:17 PM CDT [facility] GLUCOSE 91 70 - 99 mg/dL 04/30/2024 2:17 PM CDT [facility] BUN 13 10 - 20 mg/dL 04/30/2024 2:17 PM CDT [facility] CREATININE, BLOOD 0.83 0.60 - 1.00 mg/dL 04/30/2024 2:17 PM CDT [facility] BUN/CREATININE RATIO 16 12 - 20 ratio 04/30/2024 2:17 PM CDT [facility] TOTAL PROTEIN 8.2 6.3 - 8.2 g/dL 04/30/2024 2:17 PM CDT [facility] ALBUMIN 4.3 3.5 - 5.0 g/dL 04/30/2024 2:17 PM CDT [facility] A/G RATIO 1.1 1.0 - 2.2 04/30/2024 2:[address] [facility] CALCIUM 9.9 8.7 - 10.5 mg/dL 04/30/2024 2:[address] [facility] T BILI 0.3 0.2 - 1.2 mg/dL 04/30/2024 2:17 PM CDT [facility] SGOT (AST) 26 5 - 34 U/L 04/30/2024 2:[address] [facility] SGPT (ALT) 35 0 - 55 U/L 04/30/2024 2:[address] [facility] ALKALINE PHOSPHATASE 78 40 - 150 U/L 04/30/2024 2:17 PM CDT [facility] GFR, ESTIMATED >60 >=60 04/30/2024 2:17 PM CDT [facility] Comment: Creatinine Clearance is the preferred criteria for selecting drug dose adjustments in renally impaired patients. ??The GFR is provided as additional pertinent clinical information. GFR is reported in mL/min/1.73 sq m. Calculation based on the Chronic Kidney Disease Epidemiology Collaboration (CKD- EPI) equation refit without adjustment for race. GFR, EST. >60 >=60 024 2:17 PM CDT [facility] GFR, EST. NONAFRICAN >60 >=60 04/30/2024 2:17 PM CDT [facility] Blood Venipuncture / Unknown 04/30/2024 1:45 PM CDT 04/30/2024 1:55 PM CDT us Robert Le PAC CHEMISTRY ORDERABLES Final Result [facility] [address] [place] [address] * Gold Top Tube (04/30/2024 1:42 PM CDT) Blood No Phlebotomy Charged / Unknown 04/30/2024 1:42 PM CDT 04/30/2024 1:57 PM CDT us Robert Romeron PAC CHEMISTRY ORDERABLES Final Result Performing Organization Address City/[facility]/ZIP Co de Phone Number [facility] [address] [place] [address] * Blue Top Tube (04/30/2024 1:42 PM CDT) Blood No Phlebotomy Charged / Unknown 04/30/2024 1:42 PM CDT 04/30/2024 1:57 PM CDT Robert Romeron PAC HEMATOLOGY ORDERABLE S Final Result Performing Organization Address City/[facility]/ZIP Co de Phone Number [facility] [address] [place] [address] documented in this encounter Visit Diagnoses Diagnosis [...] RTR) documented in this encounter Care Teams Second Floor Operator Relationship Specialty Start Date End Date Tomasz Martinez, PAC [address] [place] [id number] PCP - General Physician Labor And Delivery Nurse 06/25/20 documented as of this encounter
--- OUTSIDE RECORDS SUMMARY | 2024-07-21 11:16 | XMS_ITS | Encounter Summary ---
Author Organization [facility] Address [address] [place] [address] Phone Care Team Providers Care Fire Officer Name Role Phone Tomasz Martinez Primary Care Provider [phone] Reason for Visit * Reason Comments Nausea Vomiting Encounter Details Date Type Department Care Team ([facility] st Contact Info) Description 05/23/2022 8:33 PM CDT - 05/23/2022 10:31 PM CDT Emergency [facility] Emergency [address] [place] [id number] Radha Orozco, PAC [address] [place] [address] Hypokalemia Discharge Disposition: Discharged to home or [...] Care Everywhere. * Urinary Tract Infection Adult ([place]ese) * Hypokalemia ([place]ese) documented in this encounter Medications at Time [...] Patient discharged per ambulatory mode as responsible alliance party. SL D/C'ed with [...] information for Clinicians can be found at: https://www.fda.gov/media/797828/download Additional information for Patients can be found at: https://www.fda.gov/media/516025/download LIPASE - Normal TROPONIN I (TRP I) - Normal CULTURE, URINE COMPLETE BLOOD COUNT (CBC) WITH DIFF Narrative: The following orders were created for panel order CBC with Diff [id number]. Procedure Abnormality Status --------- ------ CBC with Auto Differential[[id number]] Abnormal Final result Please view results for these tests on the individual orders. POCT INFLUENZA A & B XR ABDOMINAL SERIES WITH CHEST VIEW Final Result IMPRESSION: No bowel obstruction or other acute abnormality identified. CMP (Comprehensive Metabolic Panel) Final Result CBC with Diff [id number] Final Result Lipase [id number] Final Result URINALYSIS REFLEX IF INDICATED BY [...] Eduar Soliman M.D. AR: TRISHA Report ID: [id number] Reading Location: [place] [address] Labs Reviewed CMP (COMPREHENSIVE METABOLIC PANEL) - [...] information for Clinicians can be found at: https://www.fda.gov/media/951340/download Additional information for Patients can be found at: https://www.fda.gov/media/118457/download LIPASE - Normal TROPONIN I (TRP I) - Normal CULTURE, URINE COMPLETE BLOOD COUNT (CBC) WITH DIFF Narrative: The following orders were created for panel order CBC with Diff [id number]. Procedure Abnormality Status --------- ------ CBC with Auto Differential[[id number]] Abnormal Final result Please view results for [...] negative Group B, Invalid POC INFLUENZA CONTROL Farmworker [employer] 05/23/2022 10:0 7 PM CDT Radha Levy Page PAC POINT OF CARE TESTING (ANA [...] PM T: ??05/23/2022 9:57 PM Report ID: [id number] Reading Location: ??[id number] Procedure Note Eduar Soliman MD - 05/23/2022 [...] Eduar Soliman M.D. AR: TRISHA Report ID: [id number] Reading Location: [id number] IMPRESSION: No bowel obstruction or other acute abnormality identified. Radha Hough Page PAC IMG DIAGNOSTIC ORDERABLES Fi nal Result * SARS-COV-2 BY MOLECULAR (05/23/2022 8:59 PM CDT) Pathologist [facility] SARSCOV2 NOT DETECTED (Referenc e Range for this test is Not Detected) [facility] ID NOW 05/23/2022 9:46 PM CDT [facility] Comment:This test was perfor med by a MOLECULAR, NON-PCR method Other NASAL STRUCTURE / Unknown Non-Phlebotomy Collection / Unknown 05/23/2022 8:59 PM CDT 05/23/2022 9:05 PM CDT Narrative [facility] - 05/23/2022 9:46 PM CDT This [...] information for Clinicians can be found at: https://www.fda.gov/media/929928/download Additional information for Patients can be found at: https://www.fda.gov/media/121767/download Radha Hough Page PAC MICROBIOLOGY - GENERAL ORDER BRYON Final Result [facility] [address] [place] [address] * (ABNORMAL) CBC with Auto Differential (05/23/2022 8:45 PM CDT) [facility] WBC 8.22 4.00 - 12.00 10(3)/mcL 05/23/2022 9:01 PM CDT [facility] RBC 4.01 3.80 - 5.30 10(6)/mcL 05/23/2022 9:01 PM CDT [facility] HEMOGLOBIN (HGB) 11.6(L) 12.0 - 15.8 g/dL 05/23/2022 9:01 PM CDT [facility] HEMATOCRIT (HCT) 36.2 36.0 - 47.0 % 05/23/2022 9:01 PM CDT [facility] MCV 90.3 82.0 - 96.0 fL 05/23/2022 9:01 PM CDT [facility] MCH 28.9 26.0 - 34.0 pg 05/23/2022 9:01 PM CDT [facility] MCHC 32.0 31.0 - 36.0 g/dL 05/23/2022 9:01 PM CDT [facility] PLATELET COUNT 234 140 - 440 10(3)/mcL 05/23/2022 9:01 PM CDT [facility] RDW 13.2 11.8 - 15.5 % 05/23/2022 9:01 PM CDT [facility] MPV 10.1 9.7 - 12.4 fL 05/23/2022 9:01 PM CDT [facility] NEUTROPHILS 80.9(H) 47.0 - 73.0 % 05/23/2022 9:01 PM CDT [facility] LYMPHOCYTES 12.2(L) 18.0 - 42.0 % 05/23/2022 9:01 PM CDT [facility] MONOCYTES 6.2 4.0 - 12.0 % 05/23/2022 9:01 PM CDT [facility] EOSINOPHILS 0.5 0.0 - 5.0 % 05/23/2022 9:01 PM CDT [facility] BASOPHILS 0.2 0.0 - 1.0 % 05/23/2022 9:01 PM CDT [facility] ABSOLUTE NEUTROPHILS 6.65 1.60 - 7.70 10(3)/mcL 05/23/2022 9:01 PM CDT [facility] ABSOLUTE LYMPHOCYTES 1.00(L) 1.30 - 3.20 10(3)/mcL 05/23/2022 9:01 PM CDT [facility] ABSOLUTE MONOCYTES 0.51 0.20 - 1.00 10(3)/mcL 05/23/2022 9:01 PM CDT [facility] ABSOLUTE EOSINOPHIL 0.04 0.00 - 0.40 10(3)/mcL 05/23/2022 9:01 PM CDT [facility] ABSOLUTE BASOPHILS 0.02 0.00 - 0.10 10(3)/mcL 05/23/2022 9:01 PM CDT [facility] NRBC PER 100 WBC 0 05/23/20 9:01 PM CDT [facility] Blood Venipuncture / Unknown 05/23/2022 8:45 PM CDT 05/23/2022 8:58 PM CDT Radha Orozco PAC HEMATOLOGY ORDERABLES Final Result Performing Organization Address City/[facility]/ZIP Co de Phone Number [facility] [address] [place] [address] * Lipase [id number] (05/23/2022 8:45 PM CDT) Pathologist [facility] LIPASE 16.1 13 - 60 U/L 05/23/2022 9:18 PM CDT [facility] Blood Venipuncture / Unknown 05/23/2022 8:45 PM CDT 05/23/2022 8:58 PM CDT Radha Orozco PAC CHEMISTRY ORDERABLES Final R esult Performing Organization Address City/[facility]/ZIP Co de Phone Number [facility] [address] [place] [address] * (ABNORMAL) CMP (Comprehensive Metabolic Panel) (05/23/2022 8:45 PM CDT) SODIUM 133(L) 136 - 144 mmol/L 05/23/2022 9:18 PM CDT [facility] POTASSIUM 3.0(L) 3.5 - 5.1 mmol/L 05/23/2022 9:18 PM CDT [facility] CHLORIDE 96(L) 100 - 110 mmol/L 05/23/2022 9:18 PM CDT [facility] CO2, VENOUS 25 22 - 32 mmol/L 05/23/2022 9:18 PM T [facility] ANION GAP 15.0 8.0 - 20.0 mmol/L 05/23/2022 9:18 PM T [facility] GLUCOSE 128(H) 70 - 99 mg/dL 05/23/2022 9:18 PM CDT [facility] BUN 10 6 - 20 mg/dL 05/23/2022 9:18 PM T [facility] CREATININE, BLOOD 0.55(L) 0.60 - 1.10 mg/dL 05/23/2022 9:18 PM T [facility] BUN/CREATININE RATIO 18 12 - 20 ratio 05/23/2022 9:18 PM [facility] TOTAL PROTEIN 7.8 6.0 - 8.3 g/dL 05/23/2022 9:18 PM T [facility] ALBUMIN 3.9 3.5 - 5.2 g/dL 05/23/2022 9:18 PM [facility] Comment: The colormetric methods used for the determination of Albumin may lead to falsely elevated test results in patients suffering from renal failure or insufficiency due to interference with other proteins. A/G RATIO 1.0 1.0 - 2.0 05/23/2022 9:18 PM T [facility] CALCIUM 9.2 8.9 - 10.3 mg/dL 05/23/2022 9:18 PM T [facility] T BILI 0.5 <=1.2 mg/dL 05/23/2022 9:18 PM T [facility] SGOT (AST) 40(H) <=32 U/L 05/23/2022 9:18 PM T [facility] SGPT (ALT) 47(H) <=41 U/L 05/23/2022 9:18 PM T [facility] ALKALINE PHOSPHATASE 124(H) 35 - 105 U/L 05/23/2022 9:18 PM CDT [facility] GFR, ESTIMATED >60 >=60 05/23/2022 9:18 PM CDT [facility] Comment: Creatinine Clearance is the preferred criteria for selecting drug dose adjustments in renally impaired patients. ??The GFR is provided as additional pertinent clinical information. GFR is reported in mL/min/1.73 sq m. Calculation based on the Chronic Kidney Disease Epidemiology Collaboration (CKD- EPI) equation refit without adjustment for race. GFR, EST. >60 >=60 022 9:18 PM CDT [facility] GFR, EST. NONAFRICAN >60 >=60 05/23/2022 9:18 PM CDT [facility] Blood Venipuncture / Unknown 05/23/2022 8:45 PM CDT 05/23/2022 8:58 PM CDT Radha Hough Page PAC CHEMISTRY ORDERABLES Final R esult [facility] [address] [place] [address] * EKG 12 LEAD (05/23/2022 8:41 PM CDT) Ventricular Rate BPM EXTERNAL EKG Atrial Rate BPM EXTERNAL EKG P-R Interval 178 ms EXTERNAL EKG QRS Duration 88 ms EXTERNAL EKG Q-T Duration 332 ms EXTERNAL EKG QTC CALCULATION 426 ms EXTERNAL EKG P Mcrae [place] 24 degrees EXTERNAL EKG R Mcrae [place] -26 degrees EXTERNAL EKG T Mcrae [place] -9 degrees EXTERNAL EKG 05/23/2022 8:41 PM CDT Impressions EXTERNAL EKG - 05/25/2022 1:00 PM CDT Sinus rhythm Leftward axis Anterior infarct as previously Inferior/lateral T abnormality is nonspecific Low QRS voltages in precordial leads Comparison Summary: Descriptive differences only Summary: Abnormal ECG Compared with:01/17/2021 10:31 PM Confirmed by Fernando Fay [id number] on 05/25/2022 1:00:59 PM Narrative Procedure Note Sumeet Sigala MD - 05/25/2022 IMPRESSION: Sinus rhythm Leftward axis Anterior infarct as previously Inferior/lateral T abnormality is nonspecific Low QRS voltages in precordial leads Comparison Summary: Descriptive differences only Summary: Abnormal ECG Compared with:01/17/2021 10:31 PM Confirmed by Fernando Fay [id number] on 05/25/2022 1:00:59 PM Julian Sheth MD IMG ECG ORDERABLES Final Result Performing Organization Address City/[facility]/ZIP Co de Phone Number EXTERNAL EKG * Culture, Urine (05/23/2022 8:37 PM CDT) [facility] CULTURE RESULTS MIXED GROWTH OF 3 OR MORE ORGANISMS, PROBABLE COLLECTION CONTAMINATION, SUGGEST REPEAT URINE CULTURE. 05/25/2022 11:09 AM CDT [facility] Urine URINE SPECIMEN COLLECTION, CLEAN CATCH / Unknown Non-Phlebotomy Collection / Unknown 05/23/2022 8:37 PM CDT 05/23/2022 8:57 PM CDT Radha Orozco PAC MICROBIOLOGY - GENERAL ORDER BRYON Final Result Performing Organization Address [facility] Co de Phone Number [facility] [address] [place] [address], [place] * Troponin I (Trp I) (05/23/2022 8:37 PM CDT) [facility] TROPONIN I <0.300 <=0.300 ng/mL 05/23/2022 9:19 PM CDT [facility] Blood Venipuncture / Unknown 05/23/2022 8:37 PM CDT 05/23/2022 9:06 PM CDT Radha Orozco PAC CHEMISTRY ORDERABLES Final R esult Performing Organization Address City/[facility]/ZIP Co de Phone Number [facility] [address] [place] [address] * (ABNORMAL) URINALYSIS REFLEX IF INDICATED BY ABNORMAL RESULTS (05/23/2022 8:37 PM CDT) SPECIFIC GRAVITY 1.025 1.003 - 1.030 05/23/2022 9:05 PM CDT [facility] URINE PH 5.0 5.0 - 9.0 05/23/2022 9:05 PM CDT [facility] WBC ESTERASE 500 /uL(A) Negative 05/23/2022 9:05 PM CDT [facility] NITRITE Negative Negative 05/23/2022 9:05 PM CDT [facility] PROTEIN, RANDOM URINE 100 mg/dL(A) Negative 05/23/2022 9:05 PM CDT [facility] URINE GLUCOSE, QUAL Negative Negative 05/23/2022 9:05 PM CDT [facility] URINE KETONES 5 mg/dL(A) Negative 05/23/2022 9:05 PM CDT [facility] UROBILINOGEN 4 mg/dL(A) Normal mg/dL 05/23/2022 9:05 PM CDT [facility] URINE BLOOD 25 /uL(A) Negative eden/ul 05/23/2022 9:05 PM CDT [facility] URINALYSIS COLOR Bita 05/23/20 9:05 PM CDT [facility] URINALYSIS CLARITY Clear 05/23/2022 9:05 PM CDT [facility] WBC (Urine) 21-50(A) Negative, 0-5 /hpf 05/23/2022 9:05 PM CDT [facility] URINE RBC'S 6-10(A) Negative, 0-2 /hpf 05/23/2022 9:05 PM CDT [facility] EPITHELIAL CELLS Moderate amount /lpf 05/23/2022 9:05 PM CDT [facility] BACTERIA, URINE Moderate(A) Negative /hpf 05/23/2022 9:05 PM CDT [facility] Urine URINE SPECIMEN COLLECTION, CLEAN CATCH / Unknown Non-Phlebotomy Collection / Unknown 05/23/2022 8:37 PM CDT 05/23/2022 8:57 PM CDT Radha France Page PAC URINE ORDERABLES Final Resul t [facility] [address] [place] [address] documented in this encounter Visit Diagnoses Diagnosis [...] documented as of this encounter Care Teams Fire Officer Relationship Specialty Start Date End Date Tomasz Martinez, CRISSY [address] [place] [address] PCP - General Physician Sewer Tapper 06/25/20 documented as of this encounter
--- OUTSIDE RECORDS SUMMARY | 2024-07-21 11:16 | XMS_ITS | Encounter Summary ---
Author Organization [employer] Care Team Providers Care Transactional Paralegal Name Role Phone Tomasz Martinez Primary Care Provider [phone] Encounter Details Date Type Department Care Team [...] documented as of this encounter Care Teams Transactional Paralegal Relationship Specialty Start Date End Date Tomasz Martinez PAC [address] [place] [address] PCP - General Physician Wheelchair Van Operator First Responder 06/25/20 documented as of this encounter
--- OUTSIDE RECORDS SUMMARY | 2024-07-21 11:16 | XMS_ITS | Encounter Summary ---
Author Organization [facility] Address [address] [place] [address] Phone Care Team Providers Care Deep Sea Diver Name Role Phone Tomasz Martinez Primary Care Provider [phone] Ford Nayak MD Unavailable Reason for Visit * Reason Comments Cyst Encounter Details Date Type Department Care Team (Late st Contact Info) Description 02/05/2022 12:24 PM CDT - 02/05/2022 4:08 PM CDT Emergency [facility] [address] [place] [id number] Robert Le, PAC [address] [place] [address] Chest wall abscess Discharge Disposition: Discharged to [...] sent through Care Everywhere. * Skin Abscess [id number] (Chilean) documented in this encounter Medications at Time [...] care instructions provided. Keflex and bactrim started. [place] for pain. Warm compresses advise at home. [...] this encounter Results * Culture, Aerobic, Wound [id number] (02/05/2022 4:00 PM CDT) CULTURE RESULTS STAPHYLOCOCCUS AUREUS 02/07/2022 5:12 PM CDT [facility] Culture ABSCESS MORPHOLOGY / Unknown Non-Phlebotomy [...] II <=10 mcg/ml: Susceptible Staphylococcus aureus Vancomycin [facility]K II 1 mcg/ml: Susceptible Robert Le PAC MICROBIOLOGY - GENER AL ORDERABLES Final Result [facility] [address] [place] [address], [place] * Incision and Drainage (02/05/2022 3:08 [...] 2) increasing dosage, or 3) changing to CAR PARK ATTENDANT. Given 02/05/2022 3:14 PM CDT 1 Tablet [...] 2) increasing dosage, or 3) changing to CAR PARK ATTENDANT. 1514 (Given - Provid er: Adelaida Bey RN) lidocaine 2 % injection 20 mL (COMPLETED) 20 mL, Injection, ONCE, 1 dose, On [place] 02/05/22 at 1600 1539 (Given by Other - Provider: Adelaida Bey RN) documented in this encounter Care Teams Deep Sea Diver Relationship Specialty Start Date End Date Tomasz Martinez, CRISSY [address] [place] [address] PCP - General Physician Power System Operator 06/25/20 Ford Nayak MD [address] [address] Consulting Physician Endocrinology 12/17/21 02/15/22 documented as of this encounter
--- OUTSIDE RECORDS SUMMARY | 2024-07-21 11:16 | XMS_ITS | Encounter Summary ---
Author Organization [facility] Address [address] [place] [address] Phone Care Team Providers Care Ladder Operator Name Role Phone Tomasz Martinez Primary Care Provider [phone] Reason for Visit * Reason Comments Vision Problem Encounter Details Date Type Department Care Team ([facility] st Contact Info) Description 02/19/2024 12:36 PM CDT - 02/19/2024 3:43 PM CDT Emergency [facility] [address] [place] [address] Robert Le, PAC [address] [place] [address] Blurred vision Discharge Disposition: Discharged to home [...] naloxone HCl (Narcan) 4 MG/0.1ML Liquid 1 [place] by Nasal route as needed (opioid overdose). [...] naloxone HCl (Narcan) 4 MG/0.1ML Liquid 1 [place] by Nasal route as needed (opioid overdose). [...] CMP Final Result Thyroid Stimulating Hormone (TSH) [id number] Final Result NIH Stroke Scale Interval: Baseline [...] NONAFRICAN >60 >=60 Thyroid Stimulating Hormone (TSH) [id number] Result Value Ref Range TSH 7.640 (H) [...] Yazan Black D.O. PS: PS Report ID: [id number] Reading Location: [id number] Medical Decision Making See HPI. Visual acuity [...] PM T: ??02/19/2024 3:27 PM Report ID: [id number] Reading Location: [id number] Procedure Note Yazan Black DO - 02/19/2024 [...] Yazan Black D.O. PS: PS Report ID: [id number] Reading Location: [id number] IMPRESSION: No definite evidence of acute intracranial [...] - 12.00 10(3)/mcL 02/19/2024 2:06 PM CDT [facility] RBC 4.10 3.80 - 5.30 10(6)/mcL 02/19/2024 2:06 PM CDT [facility] HEMOGLOBIN (HGB) 12.3 12.0 - 15.8 g/dL 02/19/2024 2:06 PM CDT [facility] HEMATOCRIT (HCT) 38.0 36.0 - 47.0 % 02/19/2024 2:06 PM CDT [facility] MCV 92.7 82.0 - 96.0 fL 02/19/2024 2:06 PM CDT [facility] MCH 30.0 26.0 - 34.0 pg 02/19/2024 2:06 PM CDT [facility] MCHC 32.4 31.0 - 36.0 g/dL 02/19/2024 2:06 PM CDT [facility] PLATELET COUNT 311 140 - 440 10(3)/mcL 02/19/2024 2:06 PM CDT [facility] RDW 13.0 11.8 - 15.5 % 02/19/2024 2:06 PM CDT [facility] MPV 9.7 9.7 - 12.4 fL 02/19/2024 2:06 PM CDT [facility] NEUTROPHILS 66.4 47.0 - 73.0 % 02/19/2024 2:06 PM CDT [facility] LYMPHOCYTES 21.9 18.0 - 42.0 % 02/19/2024 2:06 PM CDT [facility] MONOCYTES 5.6 4.0 - 12.0 % 02/19/2024 2:06 PM CDT [facility] EOSINOPHILS 5.4(H) 0.0 - 5.0 % 02/19/2024 2:06 PM CDT [facility] BASOPHILS 0.7 0.0 - 1.0 % 02/19/2024 2:06 PM CDT [facility] ABSOLUTE NEUTROPHILS 3.79 1.60 - 7.70 10(3)/[facility] 02/19/2024 2:06 PM CDT [facility] ABSOLUTE LYMPHOCYTES 1.25(L) 1.30 - 3.20 10(3)/[facility] 02/19/2024 2:06 PM CDT [facility] ABSOLUTE MONOCYTES 0.32 0.20 - 1.00 10(3)/[facility] 02/19/2024 2:06 PM CDT [facility] ABSOLUTE EOSINOPHIL 0.31 0.00 - 0.40 10(3)/[facility] 02/19/2024 2:06 PM CDT [facility] ABSOLUTE BASOPHILS 0.04 0.00 - 0.10 10(3)/[facility] 02/19/2024 2:06 PM CDT [facility] NRBC PER 100 WBC 0 02/19/20 2:06 PM CDT [facility] Blood Venipuncture / Unknown 02/19/2024 1:54 PM CDT 02/19/2024 2:04 PM CDT us Robert Le PAC HEMATOLOGY ORDERABLE S Final Result [facility] [address] [place] [address] * (ABNORMAL) Thyroid Stimulating Hormone (TSH) [id number] (02/19/2024 1:54 PM CDT) TSH 7.640(H) 0.300 - 5.000 mIU/L 02/19/2024 2:43 PM CDT [facility] Blood Venipuncture / Unknown 02/19/2024 1:54 PM CDT 02/19/2024 2:04 PM CDT us Robert Alvarez Rey PAC CHEMISTRY ORDERABLES Final Result [facility] [address] [place] [address] * (ABNORMAL) CMP (02/19/2024 1:54 PM CDT) SODIUM 141 136 - 145 mmol/L 02/19/2024 2:25 PM CDT [facility] POTASSIUM 4.2 3.5 - 5.1 mmol/L 02/19/2024 2:25 PM CDT [facility] CHLORIDE 105 98 - 107 mmol/L 02/19/2024 2:25 PM CDT [facility] CO2, VENOUS 29 22 - 30 mmol/L 02/19/2024 2:25 PM CDT [facility] ANION GAP 11.2 <18.0 mmol/L 02/19/2024 2:25 PM CDT [facility] GLUCOSE 102(H) 70 - 99 mg/dL 02/19/2024 2:25 PM CDT [facility] BUN 7(L) 10 - 20 mg/dL 02/19/2024 2:25 PM CDT [facility] CREATININE, BLOOD 0.72 0.60 - 1.00 mg/dL 02/19/2024 2:25 PM CDT [facility] BUN/CREATININE RATIO 10(L) 12 - 20 ratio 02/19/2024 2:25 PM CDT [facility] TOTAL PROTEIN 7.7 6.3 - 8.2 g/dL 02/19/2024 2:25 PM CDT [facility] ALBUMIN 4.0 3.5 - 5.0 g/dL 02/19/2024 2:25 PM CDT [facility] A/G RATIO 1.1 1.0 - 2.2 02/19/2024 2:25 PM CDT [facility] CALCIUM 9.2 8.7 - 10.5 mg/dL 02/19/2024 2:25 PM CDT [facility] T BILI 0.4 0.2 - 1.2 mg/dL 02/19/2024 2:25 PM CDT [facility] SGOT (AST) 16 5 - 34 U/L 02/19/2024 2:25 PM CDT [facility] SGPT (ALT) 18 0 - 55 U/L 02/19/2024 2:25 PM CDT [facility] ALKALINE PHOSPHATASE 85 40 - 150 U/L 02/19/2024 2:25 PM CDT [facility] GFR, ESTIMATED >60 >=60 02/19/2024 2:25 PM CDT [facility] Comment: Creatinine Clearance is the preferred criteria for selecting drug dose adjustments in renally impaired patients. ??The GFR is provided as additional pertinent clinical information. GFR is reported in mL/min/1.73 sq m. Calculation based on the Chronic Kidney Disease Epidemiology Collaboration (CKD- EPI) equation refit without adjustment for race. GFR, EST. >60 >=60 024 2:25 PM CDT [facility] GFR, EST. NONAFRICAN >60 >=60 02/19/2024 2:25 PM CDT [facility] Blood Venipuncture / Unknown 02/19/2024 1:54 PM CDT 02/19/2024 2:04 PM CDT Robert Le PAC CHEMISTRY ORDERABLES Final Result [facility] [place] [address] * POCT Glucose (02/19/2024 12:49 PM CDT) Pathologist [facility] GLUCOSE,BEDSIDE POCT 93 70 - 99 mg/dL 02/19/2024 12:55 PM CDT [facility] Blood 02/19/2024 12:4 9 PM CDT 02/19/2024 12:55 PM CDT us None Provider POINT OF CARE TESTING Final Resu lt [facility] [place] [address] documented in this encounter Visit Diagnoses Diagnosis [...] RN) documented in this encounter Care Teams Ladder Operator Relationship Specialty Start Date End Date Tomasz Martinez PAC [address] [place] [address] PCP - General Physician Unhairer 06/25/20 documented as of this encounter
--- OUTSIDE RECORDS SUMMARY | 2024-07-21 11:16 | XMS_ITS | Encounter Summary ---
Author Organization [facility] Address [address] [place] [address] Phone Care Team Providers Care Db2 Developer Name Role Phone Tomasz Martinez Primary Care Provider [phone] Reason for Visit * Reason Comments Arm Injury Encounter Details Date Type Department Care Team (Late st Contact Info) Description 01/27/2023 3:00 PM CDT - 01/27/2023 5:41 PM CDT Emergency [facility] Emergency 1 [place] [id number] Radha Orozco, PAC [address] [place] [address] Left elbow contusion Discharge Disposition: Discharged to [...] sent through Care Everywhere. * Elbow Contusion (Niuean) documented in this encounter Medications at Time [...] naloxone HCl (Narcan) 4 MG/0.1ML Liquid 1 [place] by Nasal route as needed (opioid overdose). [...] mode with work note and as responsible libertarian. * Rosario Haas RN - 01/27/2023 5:34 [...] loss of consciousness. She states that she Spencer something pop. She took hydrocodone at home [...] naloxone HCl (Narcan) 4 MG/0.1ML Liquid 1 [place] by Nasal route as needed (opioid overdose). [...] fracture or dislocation. Moderate osteoarthritis glenohumeral joint. Johh-fx-pzelrhov change of the AC joint. Adjacent ribs and soft tissues are unremarkable. THIS IS AN ELECTRONICALLY VERIFIED FINAL REPORT 01/27/2023 4:36 PM - Electronically signed by Antonio JEFFREY Report ID: [id number] Reading Location: [id number] XR ELBOW MINIMUM 3 VIEWS LEFT (Final [...] fracture or dislocation. Moderate osteoarthritis glenohumeral joint. Ojll-yl-aqillupi change of the AC joint. Adjacent ribs and soft tissues are unremarkable. THIS IS AN ELECTRONICALLY VERIFIED FINAL REPORT 01/27/2023 4:36 PM - Electronically signed by Antonio JEFFREY: WOJCIECH Report ID: [id number] Reading Location: [id number] Labs Reviewed - No data to display [...] fracture or dislocation. ??Moderate osteoarthritis glenohumeral joint. ??Jxez-le-ujqcihrs change of the AC joint. ??Adjacent ribs and soft tissues are unremarkable. THIS IS AN ELECTRONICALLY VERIFIED FINAL REPORT 01/27/2023 4:36 PM - Electronically signed by ??Antonio Jerry M.D. MJ: [email or web address] D: ??01/27/2023 4:36 PM T: ??01/27/2023 4:36 PM Report ID: [id number] Reading Location: ??[id number] Procedure Note Antonio Jerry MD - 01/27/2023 [...] fracture or dislocation. Moderate osteoarthritis glenohumeral joint. Nuji-yd-kgkgqwlr change of the AC joint. Adjacent ribs and soft tissues are unremarkable. THIS IS AN ELECTRONICALLY VERIFIED FINAL REPORT 01/27/2023 4:36 PM - Electronically signed by Antonio JEFFREY Report ID: [id number] Reading Location: [id number] IMPRESSION: No acute fracture left elbow. No [...] fracture or dislocation. ??Moderate osteoarthritis glenohumeral joint. ??Ekmy-mp-vtnlreim change of the AC joint. ??Adjacent ribs and soft tissues are unremarkable. THIS IS AN ELECTRONICALLY VERIFIED FINAL REPORT 01/27/2023 4:36 PM - Electronically signed by ??Antonio JEFFREY: WOJCIECH D: ??01/27/2023 4:36 PM T: ??01/27/2023 4:36 PM Report ID: [id number] Reading Location: ??[id number] Procedure Note Antonio Jerry MD - 01/27/2023 [...] fracture or dislocation. Moderate osteoarthritis glenohumeral joint. Fuya-so-wevrektp change of the AC joint. Adjacent ribs and soft tissues are unremarkable. THIS IS AN ELECTRONICALLY VERIFIED FINAL REPORT 01/27/2023 4:36 PM - Electronically signed by Antonio Jerry M.D. MJ: [email or web address] Report ID: [id number] Reading Location: [id number] IMPRESSION: No acute fracture left elbow. No [...] RN) documented in this encounter Care Teams Db2 Developer Relationship Specialty Start Date End Date Tomasz Martinez, PAC [address] [place] [address] PCP - General Physician Card Tender 06/25/20 documented as of this encounter
--- OUTSIDE RECORDS SUMMARY | 2024-07-21 11:16 | XMS_ITS | Encounter Summary ---
Author Organization [employer] Care Team Providers Care Soaker Hides Name Role Phone Tomasz Martinez Primary Care Provider [phone] Encounter Details Date Type Department Care Team [...] on filedocumented in this encounter Care Teams Soaker Hides Relationship Specialty Start Date End Date Tomasz Martinez PAC [address] [place] [address] PCP - General Physician Engineer And Geologist 06/25/20 documented as of this encounter
--- OUTSIDE RECORDS SUMMARY | 2024-07-21 11:16 | XMS_ITS | Encounter Summary ---
Author Organization [employer] Care Team Providers Care Manager Family Name Role Phone Tomasz Martinez Primary Care [...] on filedocumented in this encounter Care Teams Manager Family Relationship Specialty Start Date End Date Tomasz Martinez PAC [address] [place] [address] PCP - General Physician Data Quality Consultant 06/25/20 documented as of this encounter
--- OUTSIDE RECORDS SUMMARY | 2024-07-21 11:16 | XMS_ITS | Encounter Summary ---
Author Organization [employer] Care Team Providers Care Information Manager Name Role Phone Tomasz Martinez Primary [...] on filedocumented in this encounter Care Teams Information Manager Relationship Specialty Start Date End Date Tomasz Martinez PAC [address] [place] [address] PCP - General Physician Vp Human Resources 06/25/20 documented as of this encounter
--- OUTSIDE RECORDS SUMMARY | 2024-07-21 11:16 | XMS_ITS | Encounter Summary ---
Author Organization [facility] Address [address] [place] [address] Phone Care Team Providers Care Orthopedic Shoe Maker Name Role Phone Tomasz Martinez Primary Care Provider [phone] Reason for Referral * Radiology Services (Routine) - Open Specialty Diagnoses / Procedures Referred By Carolina coombs Referred To Contact Radiology Diagnoses Encounter for screening mammogram for malignant neoplasm of breast Procedures [facility] BREAST LIMITED ROCCO Tomasz Martinez, PAC [address] [place] [address] Phone: tel: fax: Referral ID Status Reason Start Date Expiration Date Visits Re quested Visits Authorized [id number] Open 03/24/2024 1 1 * Radiology Services (Routine) - Authorized Specialty Diagnoses / Procedures Referred By Carolina coombs Referred To Contact Radiology Diagnoses Encounter for screening mammogram for malignant neoplasm of breast Procedures [facility] SCREENING BILATERAL DIGITAL W CAD W MARION Tomasz Martinez, PAC [address] [place] [address] Phone: tel: fax: Referral ID Status Reason Start Date Expiration Date V isits Requested Visits Authorized [id number] Authorized 03/24/2024 1 1 Encounter Details Date Type Department Care Team (Late st Contact Info) Description 03/24/2024 Transcribe Orders [facility] Central Scheduling 1 [place] [address] Tomasz Martinez PAC [address] [place] [address] Encounter for screening mammogram for malignant neoplasm [...] mammogram documented in this encounter Care Teams Orthopedic Shoe Maker Relationship Specialty Start Date End Date Tomasz Martinez PAC [address] [place] [address] PCP - General Physician Bullet Slug Casting Machine Operator 06/25/20 documented as of this encounter
--- OUTSIDE RECORDS SUMMARY | 2024-07-21 11:16 | XMS_ITS | Encounter Summary ---
Author Organization [facility] Address [address] [place] [address] Phone Care Team Providers Care Utilities Estimator And Drafter Name Role Phone Tomasz Martinez Primary Care Provider [phone] Reason for Referral * Radiology Services (Routine) - Open Specialty Diagnoses / Procedures Referred By Carolina t Referred To Contact Radiology Diagnoses Dysphagia, unspecified type Procedures XR ESOPHAGRAM Piedad Jorge APRN, GLAZING MACHINE OPERATOR [address] [address] Phone: tel: fax: Referral ID Status Reason Start Date Expiration Date Visits Re quested Visits Authorized [id number] Open 04/21/2024 1 1 Encounter Details Date Type Department Care Team (Late st Contact Info) Description 04/21/2024 Transcribe Orders [facility] Central Scheduling 1 [place] [id number] Piedad Jorge APRN, GLAZING MACHINE OPERATOR [address] [address] Dysphagia, unspecified type Social History Tobacco Use [...] PM T: ??04/28/2024 2:34 PM Report ID: [id number] Reading Location: ??[id number] Procedure Note Jerzy Major MD - 04/28/2024 [...] Jerzy Major M.D. AG: AG Report ID: [id number] Reading Location: [place] [address] IMPRESSION: 1. No significant stricture is seen. Tiny sliding hiatal hernia. Follow-up upper endoscopy is recommended for further evaluation. Piedad Jorge SUPERVISOR ESTERS AND EMULSIFIERS, GLAZING MACHINE OPERATOR IMG FLUOROSCOPY ORDERAB LES Final Result documented in this encounter Visit Diagnoses Diagnosis Dysphagia, unspecified type Dysphagia, unspecified type documented in this encounter Care Teams Utilities Estimator And Drafter Relationship Specialty Start Date End Date Tomasz Martinez PAC [address] [place] [address] PCP - General Physician Cafeteria Helper 06/25/20 documented as of this encounter
--- OUTSIDE RECORDS SUMMARY | 2024-07-21 11:16 | XMS_ITS | Encounter Summary ---
Author Organization [employer] Care Team Providers Care Manager Clinical Research Name Role Phone Tomasz Martinez Primary Care Provider [phone] Encounter Details Date Type Department Care Team [...] filedocumented in this encounter Care Teams Manager Clinical Research Relationship Specialty Start Date End Date Tomasz Martinez PAC [address] [place] [address] PCP - General Physician Syrup Mixer Assistant 06/25/20 documented as of this encounter
--- OUTSIDE RECORDS SUMMARY | 2024-07-21 11:16 | XMS_ITS | Encounter Summary ---
Author Organization [facility] Address [address] [place] [address] Phone Care Team Providers Care Process Treater Name Role Phone Tomasz Martinez Primary Care Provider [phone] Encounter Details Date Type Department Care Team (Late st Contact Info) Description 04/21/2024 Transcribe Orders [facility] Central Scheduling 1 [place] [address] Piedad Jorge, ASSISTANT PRINCIPAL, [employer] [address] [address] Social History Tobacco Use Types Packs/Day Years [...] filedocumented in this encounter Care Teams Process Treater Relationship Specialty Start Date End Date Tomasz Martinez PAC [address] [place] [address] PCP - General Physician Wheat Shipper 06/25/20 documented as of this encounter
--- OUTSIDE RECORDS SUMMARY | 2024-07-21 11:16 | XMS_ITS | Encounter Summary ---
Author Organization [facility] Address [address] [place] [address] Phone Care Team Providers Care Cisco Certified Internetwork Expert Name Role Phone Tomasz Martinez Primary Care Provider [phone] Reason for Visit * Reason Comments Flank Pain Encounter Details Date Type Department Care Team (Late st Contact Info) Description 06/04/2023 8:00 AM CDT - 06/04/2023 10:59 AM CDT Emergency [facility] Emergency 1 [place] [address] Chao Meehan MD [address] [place] [address] Acute right-sided low back pain without sciatica [...] Care Everywhere. * Acute Back Pain Adult (Montenegrin) documented in this encounter Medications at Time [...] naloxone HCl (Narcan) 4 MG/0.1ML Liquid 1 [place] by Nasal route as needed (opioid overdose). [...] naloxone HCl (Narcan) 4 MG/0.1ML Liquid 1 [place] by Nasal route as needed (opioid overdose). [...] unremarkable Reporting no relief after toradol. Got [place] last time with good relief. Will try [...] - 1.030 06/04/2023 8:58 AM CDT [facility] URINE PH 5.0 5.0 - 9.0 06/04/2023 8:58 AM CDT [facility] WBC ESTERASE 25 /ul(A) Negative 06/04/2023 8:58 AM CDT [facility] NITRITE Negative Negative 06/04/2023 8:58 AM CDT [facility] PROTEIN, RANDOM URINE 15 mg/dL(A) Negative 06/04/2023 8:58 AM CDT [facility] URINE GLUCOSE, QUAL Negative Negative 06/04/2023 8:58 AM CDT [facility] URINE KETONES Negative Negative 06/04/2023 8:58 AM CDT [facility] UROBILINOGEN Normal Normal mg/dL 06/04/2023 8:58 AM CDT [facility] URINE BLOOD Negative Negative [place]/ul 06/04/2023 8:58 AM CDT [facility] URINALYSIS COLOR Yellow 06/04/20 8:58 AM CDT [facility] URINALYSIS CLARITY Clear 06/04/2023 8:58 AM CDT [facility] WBC (Urine) 0-5 Negative, 0-5 /hpf 06/04/2023 8:58 AM CDT [facility] URINE RBC'S 0-2 Negative, 0-2 /hpf 06/04/2023 8:58 AM CDT [facility] EPITHELIAL CELLS Occasional /lpf 06/04/20 8:58 AM CDT [facility] BACTERIA, URINE Negative Negative /hpf 06/04/2023 8:58 AM CDT [facility] Urine URINE SPECIMEN COLLECTION, CLEAN CATCH / Unknown Non-Phlebotomy Collection / Unknown 06/04/2023 8:10 AM CDT 06/04/2023 8:29 AM CDT Chao Meehan MD URINE ORDERABLES Final Result [facility] [address] [place] [address] documented in this encounter Visit Diagnoses Diagnosis [...] 2) increasing dosage, or 3) changing to RETAIL KEY HOLDER. Given 06/04/2023 9:51 AM CDT 1 Tablet [...] 2) increasing dosage, or 3) changing to RETAIL KEY HOLDER. 0951 (Given - Provid er: Lula Montgomery RN) ketorolac (TORADOL) injection 60 mg (COMPLETED) 60 mg, Intramuscular, ONCE, 1 dose, On Wed06/04/23 at 0900 0847 (Given - Provid er: Lula Montgomery RN) documented in this encounter Care Teams [employer] Certified Internetwork Expert Relationship Specialty Start Date End Date Tomasz Martinez PAC [address] [place] [address] PCP - General Physician Research Microbiologist 06/25/20 documented as of this encounter
--- OUTSIDE RECORDS SUMMARY | 2024-07-21 11:16 | XMS_ITS | Encounter Summary ---
Author Organization [facility] Address [address] [place] [address] Phone Care Team Providers Care Butter Melter Name Role Phone Tomasz Martinez Primary Care Provider [phone] Reason for Visit * Reason Comments Leg Pain Encounter Details Date Type Department Care Team (Late st Contact Info) Description 07/03/2023 3:06 PM ELEMENTARY SCHOOL TEACHER'S AIDE - 07/03/2023 4:46 PM ELEMENTARY SCHOOL TEACHER'S AIDE Emergency [facility] Emergency 1 [place] [address] Cesar Galvan MD [address] [place] [address] Leg pain, superior, right Discharge Disposition: Discharged [...] Comments Blood Pressure 133/74 07/03/2023 4:45 PM ELEMENTARY SCHOOL TEACHER'S AIDE Pulse 70 07/03/2023 4:45 PM ELEMENTARY SCHOOL TEACHER'S AIDE Temperature 36.1 ??C (97 ??F) 07/03/2023 3:11 PM ELEMENTARY SCHOOL TEACHER'S AIDE Respiratory Rate 18 07/03/2023 4:45 PM ELEMENTARY SCHOOL TEACHER'S AIDE Oxygen Saturation 99% 07/03/2023 4:45 PM ELEMENTARY SCHOOL TEACHER'S AIDE Inhaled Oxygen Concentration - - Weight 107.5 kg (237 lb) 07/03/2023 3:11 PM ELEMENTARY SCHOOL TEACHER'S AIDE Height 154.9 cm (5' 1 ) 07/03/2023 3:11 PM ELEMENTARY SCHOOL TEACHER'S AIDE Body Mass Index 44.78 07/03/2023 3:11 PM ELEMENTARY SCHOOL TEACHER'S AIDE documented in this encounter Discharge Instructions * Attachments The following attachments cannot be sent through Care Everywhere. * Musculoskeletal Pain (Kuwaiti) documented in this encounter Medications at Time [...] naloxone HCl (Narcan) 4 MG/0.1ML Liquid 1 [place] by Nasal route as needed (opioid overdose). [...] mode with spouse as responsible alliance party. Pt is alert and oriented x 4, vss, no distress noted ENTARY SCHOOL TEACHER'S AIDE * Sindhu Smith RN - 07/03/2023 4:00 PM CST Patient is resting in room with call light at bedside. Patient informed about wait time and verbalizes understanding. Patient denies needs at this time and verbalizes understanding that RN will complete hourly rounding. ENTARY SCHOOL TEACHER'S AIDE * Cesar Galvan MD - 07/03/2023 3:18 [...] naloxone HCl (Narcan) 4 MG/0.1ML Liquid 1 [place] by Nasal route as needed (opioid overdose). [...] Santiago Arce M.D. AM: AM Report ID: [id number] Reading Location: [place] [address] Medical Decision Making 57-year-old female presenting with [...] 1. Leg pain, superior, right Disposition: Discharge ENTARY SCHOOL TEACHER'S AIDE * Jerzy Church RN - 07/03/2023 3:14 PM CST Pt to ed room 10 with c/o right upper thigh pain that has been ongoing for the past two days. Denies any known injury. Denies any other sx. States pain increased significantly this morning. ENTARY SCHOOL TEACHER'S AIDE documented in this encounter Plan of Treatment Not on file documented as of this encounter Procedures Procedure Name Priority Date/Time Associated Diagnosis Comments XR FEMUR MIN 2V RIGHT STAT 07/03/2023 4:12 PM ELEMENTARY SCHOOL TEACHER'S AIDE documented in this encounter Results * XR FEMUR MIN 2V RIGHT (07/03/2023 4:12 PM ELEMENTARY SCHOOL TEACHER'S AIDE) Anatomical Region Laterality Modality LOWER EXTREMITY, Femur Right Digital R adiography 07/03/2023 4:14 PM ELEMENTARY SCHOOL TEACHER'S AIDE Impressions 07/03/2023 4:16 PM ELEMENTARY SCHOOL TEACHER'S AIDE IMPRESSION: No acute osseous abnormality of the right femur. Narrative 07/03/2023 4:16 PM ELEMENTARY SCHOOL TEACHER'S AIDE EXAM DESCRIPTION: XR FEMUR MIN 2V RIGHT [...] PM T: ??07/03/2023 4:14 PM Report ID: [id number] Reading Location: ??[id number] Procedure Note Santiago Arce MD - 07/03/2023 [...] Santiago Arce M.D. AM: AM Report ID: [id number] Reading Location: [id number] IMPRESSION: No acute osseous abnormality of the [...] 2) increasing dosage, or 3) changing to AIR DEFENSE ARTILLERY SENIOR SERGEANT. Given 07/03/2023 3:50 PM ELEMENTARY SCHOOL TEACHER'S AIDE 2 Tablets ketorolac (TORADOL) injection 60 mg 60 mg, Intramuscular, ONCE, 1 dose, On 07/03/23 at 1630 Given 07/03/2023 3:50 PM ELEMENTARY SCHOOL TEACHER'S AIDE 60 mg Right Ventrogluteal documented in this encounter Active and Recently Administered Medications Times are shown in ELEMENTARY SCHOOL TEACHER'S AIDE. Scheduled Medication Order 07/01/2023 07/02/2023 07/03/2023 HYDROcodone-acetaminophen [...] 2) increasing dosage, or 3) changing to AIR DEFENSE ARTILLERY SENIOR SERGEANT. 1550 (Given - Provid er: Sindhu Smith RN) ketorolac (TORADOL) injection 60 mg (COMPLETED) 60 mg, Intramuscular, ONCE, 1 dose, On 07/03/23 at 1630 1550 (Given - Provid er: Sindhu Smith RN) documented in this encounter Care Teams Butter Melter Relationship Specialty Start Date End Date Tomasz Martinez [address] [place] [address] PCP - General Physician Water Mechanic 06/25/20 documented as of this encounter
--- OUTSIDE RECORDS SUMMARY | 2024-07-21 11:16 | XMS_ITS | Encounter Summary ---
Author Organization [employer] Care Team Providers Care Vice President Compliance Name Role Phone Tomasz Martinez Primary Care Provider [phone] Encounter Details Date Type Department Care Team [...] on filedocumented in this encounter Care Teams Vice President Compliance Relationship Specialty Start Date End Date Tomasz Martinez [address] [place] [address] PCP - General Physician Labor Law Professor 06/25/20 documented as of this encounter
--- OUTSIDE RECORDS SUMMARY | 2024-07-21 11:16 | XMS_ITS | Encounter Summary ---
Author Organization [facility] Address [address] [place] [address] Phone Care Team Providers Care Inspector Cold Working Name Role Phone Tomasz Martinez Primary Care Provider [phone] Reason for Visit * Reason Comments Cough Chest Congestion Encounter Details Date Type Department Care Team ([facility] st Contact Info) Description 07/12/2023 1:17 AM ELECTRICAL FOREMAN - 07/12/2023 2:56 AM ELECTRICAL FOREMAN Emergency [facility] Emergency 1 [place] [address] Cesar Galvan MD [address] [place] [address] Cough Discharge Disposition: Discharged to home or [...] Comments Blood Pressure 140/80 07/12/2023 2:52 AM ELECTRICAL FOREMAN Pulse 80 07/12/2023 2:52 AM ELECTRICAL FOREMAN Temperature 36.6 ??C (97.8 ??F) 07/12/2023 1:19 AM CS T Respiratory Rate 20 07/12/2023 2:52 AM ELECTRICAL FOREMAN Oxygen Saturation 99% 07/12/2023 2:52 AM ELECTRICAL FOREMAN Inhaled Oxygen Concentration - - Weight 104.9 kg (231 lb 4.2 oz) 07/12/2023 1:19 AM ELECTRICAL FOREMAN Height 154.9 cm (5' 1 ) 07/12/2023 1:19 AM ELECTRICAL FOREMAN Body Mass Index 43.7 07/12/2023 1:19 AM ELECTRICAL FOREMAN documented in this encounter Discharge Instructions * Attachments The following attachments cannot be sent through Care Everywhere. * Cough Adult (Armenian) * Viral Respiratory Infection (Armenian) documented in this encounter Medications at Time [...] naloxone HCl (Narcan) 4 MG/0.1ML Liquid 1 [place] by Nasal route as needed (opioid overdose). [...] mode with self as responsible alliance party. TRICAL FOREMAN * Evelyne Roque RN - 07/12/2023 2:11 AM CST Pt medicated per provider orders. Pt educated on intended effects and side effects of medication and verbalized understanding. Pt able to provide teach- back of education. TRICAL FOREMAN * Cesar Galvan MD - 07/12/2023 1:24 AM CST Chief Complaint Patient presents with ??? Cough ??? Chest Congestion 57-year-old female presenting with cough for 2 days, she is been having some posttussive emesis. Nomeasured fever. No chest pain. The only emesis she is having his posttussive she is not having nausea at baseline. Her has been sick. She states her chrk-wiy-beollbx medications have been vomited backup secondary to [...] naloxone HCl (Narcan) 4 MG/0.1ML Liquid 1 [place] by Nasal route as needed (opioid overdose). [...] acute infiltrate on chest x-ray 2:47 AM ELECTRICAL FOREMAN Patient's screenings and negative for COVID RSV or influenza, her chest x-ray does not have any infiltrate on it, will be treating her symptomatically and she can follow-up with her PCP as needed if she is failing to improve or has further concerns. Clinical Impression 1. Viral URI 2. Cough Disposition: Discharge TRICAL FOREMAN * Allan Jones RN - 07/12/2023 1:17 AM CST Pt to ER room 2 w/c/o chest congestion, sinus congestion, and sinus drainage starting 2 days ago. Pt states that her dr gave her cetrizine for condition. Pt states that she throw up after coughing excessively. Pt alert and oriented x 4. TRICAL FOREMAN documented in this encounter Plan of Treatment Not on file documented as of this encounter Procedures Procedure Name Priority Date/Time Associated Diagnosis Comments XR CHEST 2 VIEWS STAT 07/12/2023 1:54 AM ELECTRICAL FOREMAN RSV,SARS-COV-2,INFL UENZA A&B BY PCR STAT 07/12/2023 1:40 AM ELECTRICAL FOREMAN documented in this encounter Results * XR CHEST 2 VIEWS (07/12/2023 1:54 AM ELECTRICAL FOREMAN) Anatomical Region Laterality Modality Chest N/A Digital Radiogra phy 07/12/2023 2:54 AM ELECTRICAL FOREMAN Impressions 07/12/2023 2:56 AM ELECTRICAL FOREMAN IMPRESSION: ?? No acute cardiopulmonary abnormality. Narrative 07/12/2023 2:56 AM ELECTRICAL FOREMAN EXAM DESCRIPTION: ?? XR CHEST 2 VIEWS [...] AM T: ??07/12/2023 2:54 AM Report ID: [id number] Reading Location: ??[id number] Procedure Note Jourdan Aparicio MD - 07/12/2023 [...] Jourdan Aparicio M.D. RW: RADHA Report ID: [id number] Reading Location: [id number] IMPRESSION: No acute cardiopulmonary abnormality. us Cesar Galvan MD IM DIAGNOSTIC ORDERAB LES Final Result * OH-COV-2 Flu RSV - (Quad PCR) (07/12/2023 1:40 AM ELECTRICAL FOREMAN) FLU A Negative Negative 07/12/2023 2:28 AM ELECTRICAL FOREMAN [facility] FLU B Negative Negative 07/12/2023 2:28 AM ELECTRICAL FOREMAN [facility] RESP SYNC VIRUS Negative Negative, Invalid 07/12/2023 2:28 AM [facility] SARSCOV2 NOT DETECTED (Reference Range for this test is Not Detected) 07/12/2023 2:28 AM [facility] Comment:This test was perfor med by a RT-PCR method. Swab NASOPHARYNGEAL SWAB / Unknown Non-Phlebotomy Collection / Unknown 07/12/2023 1:40 AM ELECTRICAL FOREMAN 07/12/2023 1:47 AM ELECTRICAL FOREMAN Narrative [facility] - 07/12/2023 2:28 AM ELECTRICAL FOREMAN This test has not been FDA cleared or approved; the test has been authorized by FDA under an Emergency Use Authorization (EUA) for use by laboratories certified under the CLIA that meet the requirements to perform moderate, high or waived complexity tests. Authorized Fact Sheets about this test for providers and patients are available at: https://www.fda.gov/medical-devices/rgfeqwqqp-ydwymicgqo-hszikfm-devices/emergen -us e-authorizations Result [facility] Cesar Galvan MD MICROBIOLOGY - GENERAL ORDERABLES Final Result [facility] [address] [place] [address] documented in this encounter Visit Diagnoses Diagnosis [...] numbness has resolved. Given 07/12/2023 2:10 AM ELECTRICAL FOREMAN 200 mg ketorolac (TORADOL) injection 30 mg 30 mg, Intramuscular, ONCE, 1 dose, On Wed07/12/23 at 0230 Given 07/12/2023 2:10 AM ELECTRICAL FOREMAN 30 mg Right Ventrogluteal Prochlorperazine Edisylate (COMPAZINE) injection 10 mg 10 mg, Intramuscular, ONCE, 1 dose, On Wed07/12/23 at 0230 Given 07/12/2023 2:10 AM ELECTRICAL FOREMAN 10 mg Left Ventrogluteal documented in this encounter Active and Recently Administered Medications Times are shown in ELECTRICAL FOREMAN. Scheduled Medication Order 07/10/2023 07/11/2023 07/12/2023 benzonatate [...] has resolved. 0210 (Given - Provid er: Eveylne Roque RN) ketorolac (TORADOL) injection 30 mg [...] 19 07/12/2023 07/12/2023 07/22/2023 12:1 6 AM ELECTRICAL FOREMAN documented as of this encounter Care Teams Inspector Cold Working Relationship Specialty Start Date End Date Tomasz Martinez PAC [address] [place] [address] PCP - General Physician Food Preservation Scientist 06/25/20 documented as of this encounter
--- OUTSIDE RECORDS SUMMARY | 2024-07-21 11:16 | XMS_ITS | Encounter Summary ---
Author Organization [facility] Address [address] [place] [address] Phone Care Team Providers Care Banquet Cook Name Role Phone Tomasz Martinez Primary Care Provider [phone] Reason for Referral * Radiology Services (Routine) - Open Specialty Diagnoses / Procedures Referred By Cheryleac t Referred To Contact Radiology Diagnoses Dysphagia, unspecified type Procedures XR ESOPHAGRAM Piedad Jorge APRN, TALK SHOW HOST 2 [facility], [address] [address] Phone: tel: fax: Referral ID Status Reason Start Date Expiration Date Visits Re quested Visits Authorized [id number] Open 04/21/2024 1 1 Reason for Visit * Radiology Services (Routine) - Open Specialty Diagnoses / Procedures Referred By Carolina coombs Referred To Contact Radiology Diagnoses Dysphagia, unspecified type Procedures XR ESOPHAGRAM Piedad Jorge APRN, TALK SHOW HOST 2 [facility], [address] [address] Phone: tel: fax: Referral ID Status Reason Start Date Expiration Date Visits Re quested Visits Authorized [id number] Open 04/21/2024 1 1 Encounter Details Date Type Department Care Team (Latest Contact Info) Description 04/28/2024 8:04 AM CDT - 04/28/2024 11:59 PM CDT Hospital Encounter [facility] Diagnostic Radiology [address] [place] [id number] Piedad Jorge, BALLISTICS EXPERT FORENSIC, TALK SHOW HOST [address], [address] [place] [address] Discharge Disposition: Discharged to home or Selfcare [...] naloxone HCl (Narcan) 4 MG/0.1ML Liquid 1 [place] by Nasal route as needed (opioid overdose). [...] PM T: ??04/28/2024 2:34 PM Report ID: [id number] Reading Location: ??[id number] Procedure Note Jerzy Major MD - 04/28/2024 [...] Jerzy Major M.D. AG: JORGE Report ID: [id number] Reading Location: [id number] IMPRESSION: 1. No significant stricture is seen. Tiny sliding hiatal hernia. Follow-up upper endoscopy is recommended for further evaluation. Piedad Jorge BALLISTICS EXPERT FORENSIC, TALK SHOW HOST IMG FLUOROSCOPY ORDERAB LES Final Result documented [...] Packet documented in this encounter Care Teams Banquet Cook Relationship Specialty Start Date End Date Tomasz Martinez, PAC [address] [place] [address] PCP - General Physician Wireless Construction Manager 06/25/20 documented as of this encounter
--- OUTSIDE RECORDS SUMMARY | 2024-07-21 11:17 | XMS_ITS | Encounter Summary ---
Author Organization [employer] Care Team Providers Care Machine Fastener Name Role Phone Tomasz Martinez Primary Care Provider [phone] Encounter Details Date Type Department Care Team [...] Coronavirus / COVID-19? Yes 07/07/2020 1:21 PM STILL OPERATOR documented as of this encounter Plan of Treatment Not on file documented as of this encounter Visit Diagnoses Not on filedocumented in this encounter Care Teams Machine Fastener Relationship Specialty Start Date End Date Tomasz Martinez PAC [address] [place] [address] PCP - General Physician Fish Liver Sorter 06/25/20 documented as of this encounter
--- OUTSIDE RECORDS SUMMARY | 2024-07-21 11:17 | XMS_ITS | Encounter Summary ---
Author Organization [facility] Address [address] [place] [address] Phone Care Team Providers Care Typing Teacher Name Role Phone Tomasz Martinez Primary Care Provider [phone] Reason for Visit * Reason Comments Chest Pain Encounter Details Date Type Department Care Team ([facility] st Contact Info) Description 01/17/2021 10:26 PM CDT - 01/18/2021 12:09 AM CDT Emergency [facility] Emergency 1 [place] [address] Cesar Galvan MD [address] [place] [address] Palpitations Discharge Disposition: Discharged to home or [...] Everywhere. * Anxiety, Your Body's Response to (Syrian) * Palpitations (Syrian) documented in this encounter Medications at Time [...] of intermittent medial chest pain onset around 7926-1603 this afternoon. States that pain feels weird [...] ED Physician in the absence of a deli associate: yes Interpretation: Interpretation: non-specific Rate: ECG rate: [...] by Jerzy Palma D.O. : Report ID: [id number] Reading Location: [address] Number of Diagnoses or Management Options [...] Performed by: Cesar Galvan MD Authorized by: Csear Galvan MD ECG reviewed by ED Physician in the absence of a deli associate: yes Interpretation: Interpretation: non-specific Rate: ECG rate: [...] by Jerzy Palma D.O. : Report ID: [id number] Reading Location: [address] Number of Diagnoses or Management Options [...] PM T: ??01/17/2021 11:49 PM Report ID: [id number] Reading Location: ??[id number] Procedure Note Jerzy Palma, DO - 01/17/2021 [...] by Jerzy Palma D.O. : Report ID: [id number] Reading Location: [id number] IMPRESSION: 1. No acute cardiopulmonary process is identified. Cesar Galvan MD IMG DIAGNOSTIC ORDERAB LES Final Result * (ABNORMAL) CBC with Auto Differential (01/17/2021 10:36 PM CDT) WBC 3.75(L) 4.00 - 12.00 10(3)/mcL 01/17/2021 10:45 PM CDT [facility] RBC 4.08 3.80 - 5.30 10(6)/mcL 01/17/2021 10:45 PM CDT [facility] HEMOGLOBIN (HGB) 12.0 12.0 - 15.8 g/dL 01/17/2021 10:45 PM CDT [facility] HEMATOCRIT (HCT) 37.9 36.0 - 47.0 % 01/17/2021 10:45 PM CDT [facility] MCV 92.9 82.0 - 96.0 fL 01/17/2021 10:45 PM CDT [facility] MCH 29.4 26.0 - 34.0 pg 01/17/2021 10:45 PM CDT [facility] MCHC 31.7 31.0 - 36.0 g/dL 01/17/2021 10:45 PM CDT [facility] PLATELET COUNT 258 140 - 440 10(3)/mcL 01/17/2021 10:45 PM CDT [facility] RDW 13.2 11.8 - 15.5 % 01/17/2021 10:45 PM CDT [facility] MPV 10.1 9.7 - 12.4 fL 01/17/2021 10:45 PM CDT [facility] NEUTROPHILS 59.8 47.0 - 73.0 % 01/17/2021 10:45 PM CDT [facility] LYMPHOCYTES 27.5 18.0 - 42.0 % 01/17/2021 10:45 PM CDT [facility] MONOCYTES 8.5 4.0 - 12.0 % 01/17/2021 10:45 PM CDT [facility] EOSINOPHILS 3.7 0.0 - 5.0 % 01/17/2021 10:45 PM CDT [facility] BASOPHILS 0.5 0.0 - 1.0 % 01/17/2021 10:45 PM CDT [facility] ABSOLUTE NEUTROPHILS 2.24 1.60 - 7.70 10(3)/mcL 01/17/2021 10:45 PM CDT [facility] ABSOLUTE LYMPHOCYTES 1.03(L) 1.30 - 3.20 10(3)/mcL 01/17/2021 10:45 PM CDT [facility] ABSOLUTE MONOCYTES 0.32 0.20 - 1.00 10(3)/mcL 01/17/2021 10:45 PM CDT [facility] ABSOLUTE EOSINOPHIL 0.14 0.00 - 0.40 10(3)/mcL 01/17/2021 10:45 PM CDT [facility] ABSOLUTE BASOPHILS 0.02 0.00 - 0.10 10(3)/mcL 01/17/2021 10:45 PM CDT [facility] NRBC PER 100 WBC 0 01/18/20 10:45 PM CDT [facility] Blood Venipuncture / Unknown 01/17/2021 10:36 PM CDT 01/17/2021 10:41 PM CDT us Cesar Galvan MD HEMATOLOGY ORDERABLES Final Result Performing Organization Address City/State/[facility] Co de Phone Number [facility] [address] [place] [address] * NT-proBNP (01/17/2021 10:36 PM CDT) NT PROBNP 130.1 5.0 - 227.0 pg/mL 01/17/2021 11:11 PM CDT [facility] Comment:NT-proBNP values < 3 00 pg/mL [...] of 89% and 72% for acute CHF. ([facility] data) Blood Venipuncture / Unknown 01/17/2021 10:36 PM CDT 01/17/2021 10:41 PM CDT us Cesar Galvan MD CHEMISTRY ORDERABLES F inal Result [facility] [address] [place] [address] * Troponin I (Trp I) (01/17/2021 10:36 PM CDT) [facility] TROPONIN I <0.300 <=0.300 ng/mL 01/17/2021 11:02 PM CDT [facility] Blood Venipuncture / Unknown 01/17/2021 10:36 PM CDT 01/17/2021 10:41 PM CDT Cesar Galvan MD CHEMISTRY ORDERABLES F inal Result Performing Organization Address [facility] Co de Phone Number [facility] [address] [place] [address] * (ABNORMAL) CMP (Comprehensive Metabolic Panel) (01/17/2021 10:36 PM CDT) [facility] SODIUM 137 136 - 144 mmol/L 01/17/2021 11:04 PM CDT [facility] POTASSIUM 3.7 3.5 - 5.1 mmol/L 01/17/2021 11:04 PM CDT [facility] CHLORIDE 103 100 - 110 mmol/L 01/17/2021 11:04 PM CDT [facility] CO2, VENOUS 26 22 - 32 mmol/L 01/17/2021 11:04 PM CDT [facility] ANION GAP 11.7 8.0 - 20.0 mmol/L 01/17/2021 11:04 PM CDT [facility] GLUCOSE 115(H) 70 - 99 mg/dL 01/17/2021 11:04 PM CDT [facility] BUN 8 6 - 20 mg/dL 01/17/2021 11:04 PM CDT [facility] CREATININE, BLOOD 0.53(L) 0.60 - 1.10 mg/dL 01/17/2021 11:04 PM CDT [facility] BUN/CREATININE RATIO 15 12 - 20 ratio 01/17/2021 11:04 PM CDT [facility] TOTAL PROTEIN 7.5 6.0 - 8.3 g/dL 01/17/2021 11:04 PM CDT [facility] ALBUMIN 4.0 3.5 - 5.2 g/dL 01/17/2021 11:04 PM CDT [facility] Comment: The colormetric methods used for the determination of Albumin may lead to falsely elevated test results in patients suffering from renal failure or insufficiency due to interference with other proteins. A/G RATIO 1.1 1.0 - 2.0 01/17/2021 11:04 PM CDT [facility] CALCIUM 9.1 8.9 - 10.3 mg/dL 01/17/2021 11:04 PM CDT [facility] T BILI 0.3 <=1.2 mg/dL 01/17/2021 11:04 PM CDT [facility] SGOT (AST) 18 <=32 U/L 01/17/2021 11:04 PM CDT [facility] SGPT (ALT) 14 <=41 U/L 01/17/2021 11:04 PM CDT [facility] ALKALINE PHOSPHATASE 76 35 - 105 U/L 01/17/2021 11:04 PM CDT [facility] GFR, EST. NONAFRICAN >60 >=60 01/17/2021 11:04 PM CDT [facility] GFR, EST. >60 >=60 021 11:04 PM CDT [facility] Comment: Creatinine Clearance is the preferred criteria for selecting drug dose adjustments in renally impaired patients. ??The GFR is provided as additional pertinent clinical information. GFR is reported in mL/min/1.73 sq m. Blood Venipuncture / Unknown 01/17/2021 10:36 PM CDT 01/17/2021 10:41 PM CDT Cesar Galvan MD CHEMISTRY ORDERABLES F inal Result Performing Organization Address [facility] Co de Phone Number [facility] [address] [place] [address] * EKG 12 LEAD (01/17/2021 10:31 PM CDT) Ventricular Rate BPM EXTERNAL EKG Atrial Rate BPM EXTERNAL EKG P-R Interval 182 ms EXTERNAL EKG QRS Duration 84 ms EXTERNAL EKG Q-T Duration 354 ms EXTERNAL EKG QTC CALCULATION 417 ms EXTERNAL EKG P Delta 26 degrees EXTERNAL EKG R Delta -24 degrees EXTERNAL EKG T Delta -6 degrees EXTERNAL EKG 01/17/2021 10:3 1 [...] ORDERABLES Fin al Result Performing Organization Address [facility] Co de Phone Number EXTERNAL EKG documented [...] RN) documented in this encounter Care Teams Typing Teacher Relationship Specialty Start Date End Date Tomasz Martinez PAC [address] [place] [address] PCP - General Physician Wort Extractor 06/25/20 documented as of this encounter
--- OUTSIDE RECORDS SUMMARY | 2024-07-21 11:17 | XMS_ITS | Encounter Summary ---
Author Organization [facility] Address [address] [place] [address] Care Team Providers Care Wire Web Worker Name Role Phone Tomasz Martinez Primary Care Provider [phone] Encounter Details Date Type Department Care Team ([facility] st Contact Info) Description 07/22/2021 11:50 AM CUSTOMER SUCCESS ASSOCIATE Immunization [place] [facility] Mobile Immunization [address] [place] [address] Need for vaccination (Primary Dx) Social History [...] disease documented in this encounter Care Teams Wire Web Worker Relationship Specialty Start Date End Date Tomasz Martinez PAC [address] [place] [address] PCP - General Physician Warehouse Freight Handler 06/25/20 documented as of this encounter
--- OUTSIDE RECORDS SUMMARY | 2024-07-21 11:17 | XMS_ITS | Encounter Summary ---
Author Organization [facility] Address [address] [place] [address] Phone Care Team Providers Care Toll Patrolman Name Role Phone Tomasz Martinez Primary Care Provider Reason for Visit * Reason Comments Toe Pain Encounter Details Date Type Department Care Team (Late st Contact Info) Description 06/25/2020 9:50 PM ADJUSTMENT CLERK - 06/25/2020 10:24 PM ADJUSTMENT CLERK Emergency [facility] Emergency 1 [place] [address] Akira Dior MD [address] [place] [address] Ingrown left big toenail Discharge Disposition: Discharged [...] COVID-19? No / Unsure 06/25/2020 9:46 PM ADJUSTMENT CLERK documented as of this encounter Last Filed Vital Signs Vital Sign Reading Time Taken Comments Blood Pressure 142/99 06/25/2020 9:45 PM ADJUSTMENT CLERK Pulse 72 06/25/2020 9:45 PM ADJUSTMENT CLERK Temperature 35.9 ??C (96.6 ??F) 06/25/2020 9:45 PM CS T Respiratory Rate 16 06/25/2020 9:45 PM ADJUSTMENT CLERK Oxygen Saturation 99% 06/25/2020 9:45 PM ADJUSTMENT CLERK Inhaled Oxygen Concentration - - Weight 97.1 kg (214 lb) 06/25/2020 9:45 PM ADJUSTMENT CLERK Height 154.9 cm (5' 1 ) 06/25/2020 9:45 PM ADJUSTMENT CLERK Body Mass Index 40.43 06/25/2020 9:45 PM ADJUSTMENT CLERK documented in this encounter Discharge Instructions * Discharge Instructions* Akira Dior Sri - 06/25/2020 10:12 PM ADJUSTMENT CLERK Images from the original note were not [...] is healing. Medicines ?? You can take papv-cry-ycaacke medicine for pain, unless you were given [...] reviewed this educational content on 03/02/2019 ?? 7142-2048 [employer]. [address] [place] [address], [place] [address]. All rights reserved. This information is not intended as a substitute for professional medical care. Always follow your healthcare professional's instructions. YOU MAY CONTINUE TO TAKE UP TO 3 200 MG IBUPROFEN 3 TIMES DAILY FOR BASELINE PAIN CONTROL. MAY CONTINUE EPSON SALT SOAKS. CONTINUE TO WEAR SHOES/SANDALS THAT DO NOT PUT PRESSURE ON TOENAIL. MAKE APPOINTMENT WITH WEB SITE DESIGNER FOR DEFINITIVE CARE. START ANTIBIOTICS TOMORROW STMENT CLERK documented in this encounter Medications at Time [...] ambulatory mode with self as responsible libertarian. STMENT CLERK * Mark Garcia, RN - 06/25/2020 10:20 PM CST Pt medicated per provider orders. Pt educated on intended effects and side effects of medication and verbalized understanding, able to provide teach back of education. STMENT CLERK * Akira Dior - 06/25/2020 10:08 PM CST Chief Complaint [...] WITH UNKNOWN ANTIBIOTIC. OUT OF ANTIBIOTIC. USES [id number] MOTRIN WITH LIMITED RELIEF. TRIES TO WEAR [...] file Gets together: Not on file Attends adventist service: Not on file Active member of [...] LEFT GREAT TOE LEFT GREAT INGROWN TOENAIL STMENT CLERK * Do Schulte RN - 06/25/2020 9:43 PM CST Pt presents with redness, swelling and drainage to left big toe x 2 weeks. Pt denies injury. Pt states she was seen at [facility] 2 weeks ago and given antibiotic but cannot remember the name. Pt states she did finish the antibiotic. STMENT CLERK STMENT CLERK documented in this encounter Plan of Treatment [...] Soft Tissue Infection Given 06/25/2020 10:17 PM ADJUSTMENT CLERK 300 mg documented in this encounter Active and Recently Administered Medications Times are shown in ADJUSTMENT CLERK. Scheduled Medication Order 06/23/2020 06/24/2020 06/25/2020 clindamycin (CLEOCIN) capsule 300 mg (COMPLETED) 300 mg, Oral, ONCE, 1 dose, On Wed06/25/20 at 2230, Indications: Skin and Soft Tissue Infection 2217 (Given - Provid er: Mark Gacria RN) documented in this encounter Care Teams Toll Patrolman Relationship Specialty Start Date End Date Tomasz Martinez, CRISSY [address] [place] [address] PCP - General Physician Food Service Team Member 06/25/20 documented as of this encounter
--- OUTSIDE RECORDS SUMMARY | 2024-07-21 11:17 | XMS_ITS | Encounter Summary ---
Author Organization [employer] Care Team Providers Care Director Global Market Research Name Role Phone Tomasz Martinez Primary Care Provider [phone] Encounter Details Date Type Department Care Team [...] COVID-19? No / Unsure 06/25/2020 9:46 PM FORMING MILL OPERATOR documented as of this encounter Plan of Treatment Not on file documented as of this encounter Visit Diagnoses Not on filedocumented in this encounter Care Teams Director Global Market Research Relationship Specialty Start Date End Date Tomasz Martinez PAC [address] [place] [address] PCP - General Physician Newspaper Stuffer 06/25/20 documented as of this encounter
--- OUTSIDE RECORDS SUMMARY | 2024-07-21 11:17 | XMS_ITS | Encounter Summary ---
Author Organization [employer] Care Team Providers Care Protective Signal Installer Helper Name Role Phone Tomasz Martinez Primary Care Provider [phone] Encounter Details Date Type Department Care Team [...] on filedocumented in this encounter Care Teams Protective Signal Installer Helper Relationship Specialty Start Date End Date Tomasz Martinez PAC [address] [place] [address] PCP - General Physician Button Attaching Machine Operator 06/25/20 documented as of this encounter
--- OUTSIDE RECORDS SUMMARY | 2024-07-21 11:17 | XMS_ITS | Encounter Summary ---
Author Organization [facility] Address [address] [place] [address] Phone Care Team Providers Care Construction Supervisor/Carpenter Name Role Phone Tomasz Martinez Primary Care Provider [phone] Reason for Referral * Radiology Services (Routine) - Closed Specialty Diagnoses / Procedures Referred By Carolina coombs Referred To Contact Radiology Diagnoses Nontoxic goiter, unspecified Procedures US THYROID Tomasz Martinez, CRISSY [address] [place] [address] Phone: tel: fax: Referral ID Status Reason Start Date Expiration Date Visits Re quested Visits Authorized [id number] Closed 12/04/2021 1 1 Encounter Details Date Type Department Care Team (Late st Contact Info) Description 12/04/2021 Transcribe Orders [facility] Central Scheduling [address] [place] [address] Tomasz Martinez, PAC [address] [place] [address] Nontoxic goiter, unspecified (Primary Dx) Social History [...] 9:12 AM - Electronically signed by ??Marshall oByd M.D. AT: AT D: ??12/12/2021 9:12 AM T: ??12/12/2021 9:12 AM Report ID: [id number] Reading Location: ??[id number] Procedure Note Marshall Boyd MD - 12/12/2021 [...] Marshall Boyd M.D. AT: AT Report ID: [id number] Reading Location: [id number] IMPRESSION: 1. Status post left thyroidectomy. 2. Heterogeneously enlarged right lobe of the thyroid with increased vascularity, compatible with the history goiter. No concerning thyroid nodule. us Tomasz Martinez PAC IMG US ORDERABLES Final Resul t documented in this encounter Visit Diagnoses Diagnosis Nontoxic goiter, unspecified- Primary Nontoxic goiter, unspecified documented in this encounter Care Teams Construction Supervisor/Carpenter Relationship Specialty Start Date End Date Tomasz Martinez, PAC [address] [place] [address] PCP - General Physician Night Time Nanny 06/25/20 documented as of this encounter
--- OUTSIDE RECORDS SUMMARY | 2024-07-21 11:17 | XMS_ITS | Encounter Summary ---
Author Organization [facility] Address [address] [place] [address] Phone Care Team Providers Care Core Rescuer Name Role Phone Tomasz Martinez Primary Care Provider [phone] Reason for Visit * Reason Comments Foot Pain Encounter Details Date Type Department Care Team (Late st Contact Info) Description 10/16/2020 2:53 PM CDT - 10/16/2020 3:46 PM CDT Emergency [facility] Emergency [address] [place] [address] Giovanni Lomeli MD Left ankle [...] through Care Everywhere. * Ankle Sprains, Treating (Citizen Of [place]) documented in this encounter Medications at Time [...] Daniela Olmedo M.D. SS: SS Report ID: [id number] Reading Location: [place] [address] Review of ankle films failed to reveal [...] states she took tylenol approximately 10 minutes SLASHER RUNNER. documented in this encounter Plan of Treatment [...] PM T: ??10/16/2020 3:30 PM Report ID: [id number] Reading Location: ??[id number] Procedure Note Daniela Olmedo MD - 10/16/2020 [...] Daniela Olmedo M.D. SS: SS Report ID: [id number] Reading Location: [id number] IMPRESSION: Osteopenia. No acute fracture or malalignment. [...] RN) documented in this encounter Care Teams Core Rescuer Relationship Specialty Start Date End Date Tomasz Martinez PAC [address] [place] [address] PCP - General Physician Security Incident Handler 06/25/20 documented as of this encounter
--- OUTSIDE RECORDS SUMMARY | 2024-07-21 11:17 | XMS_ITS | Encounter Summary ---
Author Organization [facility] Care Team Providers Care Die Casting Machine Setter Name Role Phone Tomasz Martinez Primary Care Provider [phone] Encounter Details Date Type Department Care Team [...] on filedocumented in this encounter Care Teams Die Casting Machine Setter Relationship Specialty Start Date End Date Tomasz Martinez PAC [address] [place] [address] PCP - General Physician Macaroni Press Operator 06/25/20 documented as of this encounter
--- OUTSIDE RECORDS SUMMARY | 2024-07-21 11:17 | XMS_ITS | Encounter Summary ---
Author Organization [employer] Care Team Providers Care Broadcast Supervisor Name Role Phone Tomasz Martinez Primary Care Provider [phone] Encounter Details Date Type Department Care Team [...] on filedocumented in this encounter Care Teams Broadcast Supervisor Relationship Specialty Start Date End Date Tomasz Martinez PAC [address] [place] [address] PCP - General Physician Correctional Therapy Teacher 06/25/20 documented as of this encounter
--- OUTSIDE RECORDS SUMMARY | 2024-07-21 11:17 | XMS_ITS | Encounter Summary ---
Author Organization [facility] Address [address] [place] [address] Phone Care Team Providers Care Riprap Worker Name Role Phone Tomasz Martinez Primary Care Provider [phone] Reason for Visit * Reason Comments Cough Encounter Details Date Type Department Care Team ([facility] st Contact Info) Description 07/28/2021 6:53 PM BIRDCAGE ASSEMBLER - 07/28/2021 9:52 PM BIRDCAGE ASSEMBLER Emergency [facility] Emergency [address] [place] [address] Radha Orozco, PAC [address] [place] [address] Acute bronchitis Discharge Disposition: Discharged to home [...] COVID-19? No / Unsure 07/28/2021 6:50 PM BIRDCAGE ASSEMBLER documented as of this encounter Last Filed Vital Signs Vital Sign Reading Time Taken Comments Blood Pressure 142/85 07/28/2021 9:51 PM BIRDCAGE ASSEMBLER Pulse 86 07/28/2021 9:51 PM BIRDCAGE ASSEMBLER Temperature 36.8 ??C (98.2 ??F) 07/28/2021 6:51 PM CS T Respiratory Rate 20 07/28/2021 9:51 PM BIRDCAGE ASSEMBLER Oxygen Saturation 99% 07/28/2021 9:51 PM BIRDCAGE ASSEMBLER Inhaled Oxygen Concentration - - Weight 103.4 kg (228 lb) 07/28/2021 6:51 PM BIRDCAGE ASSEMBLER Height 154.9 cm (5' 1 ) 07/28/2021 6:51 PM BIRDCAGE ASSEMBLER Body Mass Index 43.08 07/28/2021 6:51 PM BIRDCAGE ASSEMBLER documented in this encounter Discharge Instructions * Discharge Instructions* Radha Orozco PAC - 07/28/2021 9:31 PM BIRDCAGE ASSEMBLER Please follow up with your primary care provider. Return for reevaluation if your symptoms change or worsen. Please take benadryl at bedtime if needed. CAGE ASSEMBLER * Attachments The following attachments cannot be sent through Care Everywhere. * Viral Respiratory Infection (Mongolian) documented in this encounter Medications at Time [...] per ambulatory mode as responsible green party. CAGE ASSEMBLER * Radha Orozco, PAC - 07/28/2021 7:56 [...] information for Clinicians can be found at: https://www.fda.gov/media/698327/download Additional information for Patients can be found at: https://www.fda.gov/media/229202/download XR CHEST SINGLE VIEW PORTABLE Final Result [...] information for Clinicians can be found at: https://www.fda.gov/media/479655/download Additional information for Patients can be found at: https://www.fda.gov/media/866350/download XR CHEST SINGLE VIEW PORTABLE Final Result [...] Jourdan Aparicio M.D. RW: RADHA Report ID: [id number] Reading Location: [place] [address] Labs Reviewed SARS-COV-2 BY MOLECULAR - Normal [...] information for Clinicians can be found at: https://www.fda.gov/media/071301/download Additional information for Patients can be found at: https://www.fda.gov/media/338740/download MDM Coding Clinical Impression 1. Acute bronchitis Patient was started on prednisone and given an albuterol inhaler. Encouraged close f/u with her pmdand to return for reevaluation if sx change or worsen. Cosigned by Giovanni Lomeli MD at 07/29/2021 4:26 AM BIRDCAGE ASSEMBLER CAGE ASSEMBLER CAGE ASSEMBLER * Ginna Bey RN - 07/28/2021 7:31 PM CST No change in pt condition since triage, see triage note. Pt denies any SOB or CP. Respirations are even and non-labored. Lung sounds clear ROCCO CAGE ASSEMBLER * Rosario Haas RN - 07/28/2021 6:49 PM CST Patient ambulatory to triage with c/o cough and left ear pain for approx. 1 week. States she gets this crap every year and that she asked her PMD for some medicine but her PMD wouldn't prescribe it until she was tested for COVID. Respirations even and unlabored; VSS in triage CAGE ASSEMBLER documented in this encounter Plan of Treatment Not on file documented as of this encounter Procedures Procedure Name Priority Date/Time Associated Diagnosis Comments XR CHEST SINGLE VIEW PORTABLE STAT 07/28/2021 7:57 PM BIRDCAGE ASSEMBLER SARS-COV-2 BY MOLECULAR STAT 07/28/2021 7:57 PM BIRDCAGE ASSEMBLER documented in this encounter Results * XR CHEST SINGLE VIEW PORTABLE (07/28/2021 7:57 PM BIRDCAGE ASSEMBLER) Anatomical Region Laterality Modality Chest N/A Digital Radiogra phy 07/28/2021 8:08 PM BIRDCAGE ASSEMBLER Impressions 07/28/2021 8:11 PM BIRDCAGE ASSEMBLER IMPRESSION: ?? No acute cardiopulmonary disease. Narrative 07/28/2021 8:11 PM BIRDCAGE ASSEMBLER EXAM DESCRIPTION: ?? XR CHEST SINGLE VIEW [...] PM T: ??07/28/2021 8:08 PM Report ID: [id number] Reading Location: ??[id number] Procedure Note Jourdan Aparicio MD - 07/28/2021 [...] Jourdan Aparicio M.D. RW: RADHA Report ID: [id number] Reading Location: [id number] IMPRESSION: No acute cardiopulmonary disease. Radha Hough Page PAC IMG DIAGNOSTIC ORDERABLES Fi nal Result * SARS-COV-2 BY MOLECULAR (07/28/2021 7:57 PM BIRDCAGE ASSEMBLER) SARSCOV2 NOT DETECTED (Referenc e Range for this test is Not Detected) [facility] ID NOW 07/28/2021 8:52 PM BIRDCAGE ASSEMBLER [facility] Comment:This test was perfor med by a MOLECULAR, NON-PCR method Other NASAL STRUCTURE / Unknown Non-Phlebotomy Collection / Unknown 07/28/2021 7:57 PM BIRDCAGE ASSEMBLER 07/28/2021 8:01 PM BIRDCAGE ASSEMBLER Narrative [facility] - 07/28/2021 8:52 PM BIRDCAGE ASSEMBLER This test has been authorized by the [...] information for Clinicians can be found at: https://www.fda.gov/media/430083/download Additional information for Patients can be found at: https://www.fda.gov/media/156802/download us Radha Hough Page PAC MICROBIOLOGY - GENERAL ORDER BRYON Final Result [facility] [address] [place] [address] documented in this encounter Visit Diagnoses Diagnosis Acute bronchitis- Primary documented in this encounter Additional Health Concerns Infection Onset Date Last Indicated Resolved Time COVID - 19 07/28/2021 07/28/2021 08/17/2021 12:1 6 AM BIRDCAGE ASSEMBLER documented as of this encounter Care Teams Riprap Worker Relationship Specialty Start Date End Date Tomasz Martinez, PAC [address] [place] [address] PCP - General Physician Forest Resource Specialist 06/25/20 documented as of this encounter
--- OUTSIDE RECORDS SUMMARY | 2024-07-21 11:17 | XMS_ITS | Encounter Summary ---
Author Organization [facility] Address [address] [place] [address] Phone Care Team Providers Care Sweeper Cleaner Industrial Name Role Phone Tomasz Martinez PAC Primary Care Provider [phone] Reason for Referral * Radiology Services (Routine) - Closed Specialty Diagnoses / Procedures Referred By Carolina coombs Referred To Contact Radiology Diagnoses Nontoxic goiter, unspecified Procedures US THYROID Tomasz Martinez, PAC [address] [place] [address] Phone: tel: fax: Referral ID Status Reason Start Date Expiration Date Visits Re quested Visits Authorized [id number] Closed 12/04/2021 1 1 Reason for Visit * Radiology Services (Routine) - Closed Specialty Diagnoses / Procedures Referred By Carolina coombs Referred To Contact Radiology Diagnoses Nontoxic goiter, unspecified Procedures US THYROID Tomasz Martinez, PAC [address] [place] [address] Phone: tel: fax: Referral ID Status Reason Start Date Expiration Date Visits Re quested Visits Authorized [id number] Closed 12/04/2021 1 1 Encounter Details Date Type Department Care Team (Late st Contact Info) Description 12/10/2021 3:52 PM CDT - 12/10/2021 11:59 PM CDT Hospital Encounter [facility] Ultrasound [address] [place] [address] SheilaTomasz munoz, PAC [address] [place] [address] Discharge Disposition: Discharged to home or Selfcare [...] AM T: ??12/12/2021 9:12 AM Report ID: [id number] Reading Location: ??[id number] Procedure Note Marshall Boyd MD - 12/12/2021 [...] Marshall Boyd M.D. AT: AT Report ID: [id number] Reading Location: [place] [address] IMPRESSION: 1. Status post left thyroidectomy. 2. Heterogeneously enlarged right lobe of the thyroid with increased vascularity, compatible with the history goiter. No concerning thyroid nodule. us Tomasz Martinez PAC IMG US ORDERABLES Final Resul t documented in this encounter Visit Diagnoses Diagnosis Nontoxic goiter, unspecified documented in this encounter Care Teams Sweeper Cleaner Industrial Relationship Specialty Start Date End Date Tomasz Martinez, PAC [address] [place] [address] PCP - General Physician Machinist Brake 06/25/20 documented as of this encounter
--- OUTSIDE RECORDS SUMMARY | 2024-07-21 11:17 | XMS_ITS | Encounter Summary ---
Author Organization [employer] Care Team Providers Care Route Supervisor Name Role Phone Tomasz Martinez Primary Care Provider [phone] Encounter Details Date Type Department Care Team [...] COVID-19? No / Unsure 07/28/2021 6:50 PM FUSE CUP EXPANDER documented as of this encounter Plan of Treatment Not on file documented as of this encounter Visit Diagnoses Not on filedocumented in this encounter Additional Health Concerns Infection Onset Date Last Indicated Resolved Time COVID - 19 07/28/2021 07/28/2021 08/17/2021 12:1 6 AM FUSE CUP EXPANDER documented as of this encounter Care Teams Route Supervisor Relationship Specialty Start Date End Date Tomasz Martinez PAC [address] [place] [address] PCP - General Physician Elastic Yarn Twister Helper 06/25/20 documented as of this encounter
--- OUTSIDE RECORDS SUMMARY | 2024-07-21 11:17 | XMS_ITS | Encounter Summary ---
Author Organization [facility] Address [address] [place] [address] Phone Care Team Providers Care Blood Tester Name Role Phone Tomasz Martinez Primary Care Provider [phone] Reason for Visit * Reason Comments Abdominal Pain Encounter Details Date Type Department Care Team (Late st Contact Info) Description 07/07/2020 1:27 PM CAD DEVELOPER - 07/07/2020 3:04 PM CAD DEVELOPER Emergency [facility] Emergency [address] [place] [address] Giovanni Lomeli MD Anxiety states [...] Coronavirus / COVID-19? Yes 07/07/2020 1:21 PM CAD DEVELOPER documented as of this encounter Last Filed Vital Signs Vital Sign Reading Time Taken Comments Blood Pressure 138/87 07/07/2020 3:00 PM CAD DEVELOPER Pulse 79 07/07/2020 3:00 PM CAD DEVELOPER Temperature 36.9 ??C (98.4 ??F) 07/07/2020 1:19 PM CS T Respiratory Rate 16 07/07/2020 1:19 PM CAD DEVELOPER Oxygen Saturation 100% 07/07/2020 3:00 PM CAD DEVELOPER Inhaled Oxygen Concentration - - Weight 111.1 kg (245 lb) 07/07/2020 1:19 PM CAD DEVELOPER Height 154.9 cm (5' 1 ) 07/07/2020 1:19 PM CAD DEVELOPER Body Mass Index 46.29 07/07/2020 1:19 PM CAD DEVELOPER documented in this encounter Medications at Time [...] steady gait. D/C'ed with Emmett cath intact. DEVELOPER * Elaine Alcaraz RN - 07/07/2020 2:05 PM CST Patient medicated as ordered. Patient educated on medication and made aware of side effects. Patient demonstrates understanding. Patient has no complaints or requests at this time. Call light within reach. DEVELOPER * Rosario Haas RN - 07/07/2020 2:01 PM CST Patient ambulated to the restroom with steady gait. DEVELOPER * Giovanni Lomeli MD - 07/07/2020 1:48 [...] file Gets together: Not on file Attends sikhism service: Not on file Active member of [...] Abnormality Status --------- ------ CBC with Auto Differential[[id number]] Abnormal Final result Please view results for these tests on the individual orders. EXTRA TUBES Narrative: The following orders were created for panel order Extra Tubes. Procedure Abnormality Status --------- ------ Blue Top Tube[[id number]] In process Gold Top Tube[[id number]] In process Lavender Top Tube[[id number]] In process MINT GREEN, LI HEPARIN/S...[[id number]] In process Please view results for these [...] Morbid obesity with BMI of 45.0-49.9, adult ([facility]): established, worsening Amount and/or Complexity [...] obesity with BMI of 45.0-49.9, adult (HCC) DEVELOPER * Benigno Sharpe RN - 07/07/2020 1:23 PM CST pt was tested covid positive last week. she feels her symptoms are getting worse. her chief c/o is pain across her lower abd with liquid stools. she also feels tired, sob, and has non-productive cough. she denies burning with urination or frequency. she has hx tubal . DEVELOPER documented in this encounter Plan of Treatment Not on file documented as of this encounter Procedures Procedure Name Priority Date/Time Associated Diagnosis Comments EXTRA TUBES STAT 07/07/2020 1:50 PM CAD DEVELOPER MELVIN JUÁREZ HEPARIN/SST TOP TUBE STAT 07/07/2020 1:50 PM CAD DEVELOPER GOLD TOP TUBE STAT 07/07/2020 1:50 PM CAD DEVELOPER BLUE TOP TUBE STAT 07/07/2020 1:50 PM CAD DEVELOPER LAVENDER TOP TUBE STAT 07/07/2020 1:5 0 PM CAD DEVELOPER CBC WITH AUTO DIFFERENTIAL STAT 07/07/2020 1:50 PM CAD DEVELOPER LIPASE STAT 07/07/2020 1:50 PM CAD DEVELOPER CMP (COMPREHENSIVE METABOLIC PANEL) STAT 07/07/2020 1:50 PM CAD DEVELOPER COMPLETE BLOOD COUNT (CBC) WITH DIFF STAT 07/07/2020 1:50 PM CAD DEVELOPER documented in this encounter Results * MELVIN JUÁREZ HEPARIN/SST TOP TUBE (07/07/2020 1:50 PM CAD DEVELOPER) Blood Venous Catheter (IV) / Unknown 07/07/2020 1:50 PM CAD DEVELOPER 07/07/2020 2:04 PM CAD DEVELOPER us Giovanni Lomeli MD HEMATOLOGY ORDERABLES Final Result [facility] [place] [address] * Lavender Top Tube (07/07/2020 1:50 PM CAD DEVELOPER) Blood Venous Catheter (IV) / Unknown 07/07/2020 1:50 PM CAD DEVELOPER 07/07/2020 2:04 PM CAD DEVELOPER us Giovanni Lomeli MD HEMATOLOGY ORDERABLES Final Result [facility] [place] [address] * Gold Top Tube (07/07/2020 1:50 PM CAD DEVELOPER) Blood Venous Catheter (IV) / Unknown 07/07/2020 1:50 PM CAD DEVELOPER 07/07/2020 2:04 PM CAD DEVELOPER Giovanni Lomeli MD CHEMISTRY ORDERABLES Final Result Performing Organization Address City/[facility]/ZIP Co de Phone Number [facility] [place] [address] * Blue Top Tube (07/07/2020 1:50 PM CAD DEVELOPER) Blood Venous Catheter (IV) / Unknown 07/07/2020 1:50 PM CAD DEVELOPER 07/07/2020 2:04 PM CAD DEVELOPER Giovanni Lomeli MD HEMATOLOGY ORDERABLES Final Result Performing Organization Address City/[facility]/ZIP Co de Phone Number [facility] [place] [address] * (ABNORMAL) CBC with Auto Differential (07/07/2020 1:50 PM CAD DEVELOPER) WBC 3.10(L) 4.00 - 12.00 10(3)/mcL 07/07/2020 2:07 PM CAD DEVELOPER [facility] RBC 4.30 3.80 - 5.30 10(6)/mcL 07/07/2020 2:07 PM CAD DEVELOPER [facility] HEMOGLOBIN (HGB) 12.7 12.0 - 15.8 g/dL 07/07/2020 2:07 PM CAD DEVELOPER [facility] HEMATOCRIT (HCT) 40.7 36.0 - 47.0 % 07/07/2020 2:07 PM CAD DEVELOPER [facility] MCV 94.7 82.0 - 96.0 fL 07/07/2020 2:07 PM CAD DEVELOPER [facility] MCH 29.5 26.0 - 34.0 pg 07/07/2020 2:07 PM [facility] MCHC 31.2 31.0 - 36.0 g/dL 07/07/2020 2:07 PM [facility] PLATELET COUNT 275 140 - 440 10(3)/mcL 07/07/2020 2:07 PM [facility] RDW 13.0 11.8 - 15.5 % 07/07/2020 2:07 PM [facility] MPV 9.9 9.7 - 12.4 fL 07/07/2020 2:07 PM [facility] NEUTROPHILS 52.0 47.0 - 73.0 % 07/07/2020 2:07 PM [facility] LYMPHOCYTES 32.6 18.0 - 42.0 % 07/07/2020 2:07 PM [facility] MONOCYTES 9.0 4.0 - 12.0 % 07/07/2020 2:07 PM [facility] EOSINOPHILS 5.8(H) 0.0 - 5.0 % 07/07/2020 2:07 PM [facility] BASOPHILS 0.6 0.0 - 1.0 % 07/07/2020 2:07 PM [facility] ABSOLUTE NEUTROPHILS 1.61 1.60 - 7.70 10(3)/mcL 07/07/2020 2:07 PM [facility] ABSOLUTE LYMPHOCYTES 1.01(L) 1.30 - 3.20 10(3)/mcL 07/07/2020 2:07 PM [facility] ABSOLUTE MONOCYTES 0.28 0.20 - 1.00 10(3)/mcL 07/07/2020 2:07 PM [facility] ABSOLUTE EOSINOPHIL 0.18 0.00 - 0.40 10(3)/mcL 07/07/2020 2:07 PM [facility] ABSOLUTE BASOPHILS 0.02 0.00 - 0.10 10(3)/mcL 07/07/2020 2:07 PM [facility] NRBC PER 100 WBC 0 07/07/20 20 2:07 PM CAD DEVELOPER [facility] Blood Venous Catheter (IV) / Unknown 07/07/2020 1:50 PM CAD DEVELOPER 07/07/2020 2:01 PM CAD DEVELOPER Giovanni Lomeli MD HEMATOLOGY ORDERABLES Final Result Performing Organization Address City/[facility]/ZIP Co de Phone Number [facility] [place] [address] * Lipase (07/07/2020 1:50 PM CAD DEVELOPER) LIPASE 19.4 13 - 60 U/L 07/07/2020 2:28 PM CAD DEVELOPER [facility] Blood Venous Catheter (IV) / Unknown 07/07/2020 1:50 PM CAD DEVELOPER 07/07/2020 2:01 PM CAD DEVELOPER Giovanni Lomeli MD CHEMISTRY ORDERABLES Final Result Performing Organization Address City/[facility]/ZIP Co de Phone Number [facility] [place] [address] * (ABNORMAL) CMP (Comprehensive Metabolic Panel) (07/07/2020 1:50 PM CAD DEVELOPER) SODIUM 137 136 - 144 mmol/L 07/07/2020 2:28 PM CAD DEVELOPER [facility] POTASSIUM 3.5 3.5 - 5.1 mmol/L 07/07/2020 2:28 PM CAD DEVELOPER [facility] CHLORIDE 101 100 - 110 mmol/L 07/07/2020 2:28 PM CAD DEVELOPER [facility] CO2, VENOUS 27 22 - 32 mmol/L 07/07/2020 2:28 PM CAD DEVELOPER [facility] ANION GAP 12.5 8.0 - 20.0 mmol/L 07/07/2020 2:28 PM CAD DEVELOPER [facility] GLUCOSE 92 70 - 99 mg/dL 07/07/2020 2:28 PM CAD DEVELOPER [facility] BUN 7 6 - 20 mg/dL 07/07/2020 2:28 PM [facility] CREATININE, BLOOD 0.58(L) 0.60 - 1.10 mg/dL 07/07/2020 2:28 PM [facility] BUN/CREATININE RATIO 07 13 - 20 ratio 07/07/2020 2:28 PM [facility] TOTAL PROTEIN 7.5 6.0 - 8.3 g/dL 07/07/2020 2:28 PM [facility] ALBUMIN 4.1 3.5 - 5.2 g/dL 07/07/2020 2:28 PM [facility] Comment: The colormetric methods used for the determination of Albumin may lead to falsely elevated test results in patients suffering from renal failure or insufficiency due to interference with other proteins. A/G RATIO 1.2 1.0 - 2.0 07/07/2020 2:28 PM [facility] CALCIUM 8.9 8.9 - 10.3 mg/dL 07/07/2020 2:28 PM [facility] T BILI <=0.2 <=1.2 mg/dL 07/07/2020 2:28 PM [facility] SGOT (AST) 20 <=32 U/L 07/07/2020 2:28 PM [facility] SGPT (ALT) 26 <=33 U/L 07/07/2020 2:28 PM [facility] ALKALINE PHOSPHATASE 88 35 - 105 U/L 07/07/2020 2:28 PM [facility] GFR, EST. NONAFRICAN >60 >=60 07/07/2020 2:28 PM [facility] GFR, EST. >60 >=60 020 2:28 PM [facility] Comment: Creatinine Clearance is the preferred criteria for selecting drug dose adjustments in renally impaired patients. ??The GFR is provided as additional pertinent clinical information. GFR is reported in mL/min/1.73 sq m. Blood Venous Catheter (IV) / Unknown 07/07/2020 1:50 PM CAD DEVELOPER 07/07/2020 2:01 PM CAD DEVELOPER us Giovanni Lomeli MD CHEMISTRY ORDERABLES Final Result [facility] [place] [address] documented in this encounter Visit Diagnoses Diagnosis [...] 07/07/20 at 1430 Given 07/07/2020 2:05 PM CAD DEVELOPER 15 mg lactated ringers infusion 1,000 mL at 999 mL/hr, Intravenous, ONCE, 1 dose, On 07/07/20 at 1430 New Bag 07/07/2020 2:05 PM CAD DEVELOPER 1,000 mL 999 mL/hr documented in this encounter Active and Recently Administered Medications Times are shown in CAD DEVELOPER. Scheduled Medication Order 07/05/2020 07/06/2020 07/07/2020 ketorolac (TORADOL) injection 15 mg (COMPLETED) 15 mg, Intravenous, ONCE, 1 dose, On 07/07/20 at 1430 1405 (Given - Provid er: Elaine Alcaraz RN) lactated ringers infusion 1,000 mL (COMPLETED) at 999 mL/hr, Intravenous, ONCE, 1 dose, On 07/07/20 at 1430 1405 (New Bag - Prov ider: Elaine Alcaraz RN)1502 (Stopped - Provider: Elanie Alcaraz, ELIZABETH) documented in this encounter Care Teams Blood Tester Relationship Specialty Start Date End Date Tomasz Martinez, [address] [place] [address] PCP - General Physician Mash Preparatory Operator 06/25/20 documented as of this encounter
--- OUTSIDE RECORDS SUMMARY | 2024-07-21 11:17 | XMS_ITS | Encounter Summary ---
Author Organization [facility] Address [address] [place] [address] Phone Care Team Providers Care Concrete Swimming Pool Installer Name Role Phone Tomasz Martinez Primary Care Provider [phone] Reason for Visit * Reason Comments Foot Pain Encounter Details Date Type Department Care Team (Late st Contact Info) Description 01/24/2021 8:03 PM CDT - 01/24/2021 10:24 PM CDT Emergency [facility] Emergency [address] [place] [address] Robert Le, PAC [address] [place] [address] Left foot pain Discharge Disposition: Discharged to [...] be sent through Care Everywhere. * HELENE (Kosovan) documented in this encounter Medications at Time [...] mode with self as responsible alliance party. * Kris Pitts RN - 01/24/2021 10:20 [...] Do Baker M.D. JS: BRANDON Report ID: [id number] Reading Location: [id number] MDM Coding Clinical Impression 1. Left foot [...] PM T: ??01/24/2021 8:34 PM Report ID: [id number] Reading Location: [id number] Procedure Note Do Baker MD - 01/24/2021 [...] Do Baker M.D. JS: BRANDON Report ID: [id number] Reading Location: [id number] IMPRESSION: No acute osseous abnormality. Soft tissue swelling. Prominent calcaneal enthesophytes. us Julian Sheth MD IMG DIAGNOSTIC ORDERABLES Final Result documented in this encounter Visit Diagnoses Diagnosis Left foot pain- Primary Pain in limb documented in this encounter Care Teams Concrete Swimming Pool Installer Relationship Specialty Start Date End Date Tomasz Martinez, [address] [place] [address] PCP - General Physician Trichologist 06/25/20 documented as of this encounter
--- OUTSIDE RECORDS SUMMARY | 2024-07-21 11:18 | XMS_ITS | Encounter Summary ---
Author Organization [facility] Address [address] [place] [address] Care Team Providers Care Technical Maintenance Specialist Name Role Phone Tomasz Martinez Primary Care Provider [phone] Encounter Details Date Type Department Care Team (Late st Contact Info) Description 05/18/2024 Telephone [facility] Gastroenterology at [address] [place] [address] Shania Landis MA Social History [...] on file 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 FORMING MACHINE UPKEEP MECHANIC HELPER Gender Identity Not on file Sexual Orientation [...] 05/18/2024 documented in this encounter Care Teams Technical Maintenance Specialist Relationship Specialty Start Date End Date Tomasz Martinez PA [address] [place] [address] PCP - General 12/15/17 documented as of this encounter
--- OUTSIDE RECORDS SUMMARY | 2024-07-21 11:18 | XMS_ITS | Encounter Summary ---
Author Organization [facility] Address [address] [place] [address] Care Team Providers Care Manager Operations Research Name Role Phone Tomasz Martinez Primary Care Provider [phone] Reason for Visit * Auth/Cert (Routine) Specialty Diagnoses / Procedures Referred By Carolina t Referred To Contact Diagnoses Positive H. pylori test Dyspepsia Positive H. pylori test [A04.8] Dyspepsia [R10.13] Procedures IA ESOPHAGOGASTRODUODENOSCOPY TRANSORAL DIAGNOSTIC ESOPHAGOGASTRODUODENOSCOPY Referral ID Status Reason Start Date Expiration Date Visits Re quested Visits Authorized [id number] 1 1 Encounter Details Date Type Department Care Team (Late st Contact Info) Description 06/07/2024 8:12 AM LAUNDERETTE ATTENDANT Anesthesia Event [address] [address] [place] [address] [facility] [place] [address] Anesthesia Record Procedure Summary Procedure Name Responsible [...] on file 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 LAUNDERETTE ATTENDANT Gender Identity Not on file Sexual Orientation Not on file documented as of this encounter OR Notes * Anesthesia Postprocedure Evaluation - Dillon Alva MD - 06/07/2024 5:20 PM CST Patient: Elizabeth Oates Procedure Summary Date: 06/07/24 Room / Location: [facility] ROOM 1 / [facility] Anesthesia Start: 811 Anesthesia Stop: [...] Nausea/Vomiting status: none No notable events documented. DERETTE ATTENDANT * Anesthesia Preprocedure Evaluation - Dillon Alva [...] and agree to proceed. All questions answered. DERETTE ATTENDANT DERETTE ATTENDANT documented in this encounter Plan of Treatment [...] 0817, Anesthesia Intra-op Given 06/07/2024 8:17 AM LAUNDERETTE ATTENDANT 60 mg propofoL (DIPRIVAN) 10 mg/mL IV intravenous, As needed, Starting on Wed06/07/24 at 0817, Anesthesia Intra-op Given 06/07/2024 8:23 AM LAUNDERETTE ATTENDANT 30 mg Given 06/07/2024 8:21 AM LAUNDERETTE ATTENDANT 30 mg Given 06/07/2024 8:19 AM LAUNDERETTE ATTENDANT 30 mg sodium chloride 0.9% infusion 30 mL/hr, intravenous, Continuous, Starting on Wed06/07/24 at 0800, Pre-Procedure (GI) Restarted 06/07/2024 8:29 AM LAUNDERETTE ATTENDANT New Bag 06/07/2024 8:12 AM LAUNDERETTE ATTENDANT 30 mL/hr documented in this encounter Care Teams Manager Operations Research Relationship Specialty Start Date End Date Tomasz Martinez PA [address] [place] [address] PCP - General 12/15/17 documented as of this encounter
--- OUTSIDE RECORDS SUMMARY | 2024-07-21 11:18 | XMS_ITS | Encounter Summary ---
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 Case was updated on the snapboard. * [...] on filedocumented in this encounter Care Teams Script Girl Relationship Specialty Start Date End Date Tomasz Martinez PA [address] [place] [address] PCP - General 12/15/17 documented as of this encounter
--- OUTSIDE RECORDS SUMMARY | 2024-07-21 11:18 | XMS_ITS | Encounter Summary ---
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
--- OUTSIDE RECORDS SUMMARY | 2024-07-21 11:18 | XMS_ITS | Encounter Summary ---
Author Organization [facility] Address [address] [place] [address] Care Team Providers Care Acid Tank Cleaner Name Role Phone Tomasz Martinez Primary Care Provider [phone] Reason for Visit * Reason Comments Follow-up Patient here for fol low up diarrhea, has been better but when she does it is like water, had Hpylori Encounter Details Date Type Department Care Team (Latest Contact Info) Description 05/18/2024 9:30 AM CDT Office Visit [facility] Gastroenterology at [address] [place] [address] Elisa Abbott MD [address] [place] [address] [address] [place] [address] Dyspepsia (Primary Dx); Esophageal dysphagia; [...] on file 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 Exchange Engineer variances may occur. Despite proofreading, typographical errors [...] 06/07/2024 added in this encounter Care Teams Acid Tank Cleaner Relationship Specialty Start Date End Date Tomasz Martinez PA [address] [place] [address] PCP - General 12/15/17 documented as of this encounter
--- OUTSIDE RECORDS SUMMARY | 2024-07-21 11:18 | XMS_ITS | Encounter Summary ---
Author Organization [facility] Healthcare Address [address] [place] [address] Care Team Providers Care Umbrella Mender Name Role Phone Tomasz Martinez Primary Care Provider [phone] Reason for Visit * Auth/Cert (Routine) Specialty Diagnoses / Procedures Referred By Contlainey t Referred To Contact Diagnoses Positive H. pylori test Dyspepsia Positive H. pylori test [A04.8] Dyspepsia [R10.13] Procedures LA ESOPHAGOGASTRODUODENOSCOPY TRANSORAL DIAGNOSTIC ESOPHAGOGASTRODUODENOSCOPY Referral ID Status Reason Start Date Expiration Date Visits Re quested Visits Authorized [id number] 1 1 Encounter Details Date Type Department Care Team (Latest Contact Info) Description 06/07/2024 7:10 AM PUBLIC RELATIONS CONSULTANT - 06/07/2024 9:23 AM PUBLIC RELATIONS CONSULTANT Hospital Encounter [facility] [address] [place] [address] Elisa Abbott MD [address] [place] [address] Positive H. pylori test; Dyspepsia Discharge Disposition: [...] on file 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 PUBLIC RELATIONS CONSULTANT Gender Identity Not on file Sexual Orientation Not on file documented as of this encounter Last Filed Vital Signs Vital Sign Reading Time Taken Comments Blood Pressure 133/90 06/07/2024 9:04 AM PUBLIC RELATIONS CONSULTANT Pulse 71 06/07/2024 9:04 AM PUBLIC RELATIONS CONSULTANT Temperature 36.8 ??C (98.3 ??F) 06/07/2024 9:04 AM CS T Respiratory Rate 18 06/07/2024 9:04 AM PUBLIC RELATIONS CONSULTANT Oxygen Saturation 98% 06/07/2024 9:04 AM PUBLIC RELATIONS CONSULTANT Inhaled Oxygen Concentration - - Weight 109.3 kg (241 lb) 06/07/2024 7:25 AM PUBLIC RELATIONS CONSULTANT Height 154.9 cm (5' 1 ) 06/07/2024 7:25 AM PUBLIC RELATIONS CONSULTANT Body Mass Index 45.54 06/07/2024 7:25 AM PUBLIC RELATIONS CONSULTANT documented in this encounter Medications at Time [...] 1 tablet (50 mcg total) by mouth senior systems software engineer before breakfast ondansetron (ZOFRAN) 4 mg tablet [...] 1 tablet (50 mcg total) by mouth senior systems software engineer before breakfast ondansetron (ZOFRAN) 4 mg tablet [...] Dysphagia GI PLAN/RECOMMENDATIONS: EGD Elisa Abbott MD IC RELATIONS CONSULTANT documented in this encounter Procedure Notes * Elisa Abbott MD - 06/07/2024 7:21 AM CSTAssociated Order(s): EGD [facility] Patient Name: Elizabeth Oates Procedure Date: 06/07/2024 7:21 AM Date of : 1965 Admit Type: Outpatient Age: 58 Gender: Female Attending MD: Elisa Abbott M.D. Room: [facility] 1 Note Status: [...] passed under direct vision. The Endoscope GIF-H190 [id number] was introduced through the mouth, and advanced [...] 7:21 AM Procedure Code(s): --- Professional --- 28630, Esophagogastroduodenoscopy, flexible, transoral; with biopsy, single or multiple 43618, Dilation of esophagus, by unguided sound or bougie, single or multiple passes Diagnosis Code(s): --- Professional --- K31.89, Other diseases of stomach and duodenum R13.10, Dysphagia, unspecified CPT copyright 2020 [employer]. All rights reserved. The codes documented in this report are preliminary and upon orthopedic coder review may be revised to meet current compliance requirements. Recognized by the [place] [employer] for promoting quality in endoscopy IC RELATIONS CONSULTANT documented in this encounter Miscellaneous Notes * Perioperative Nursing Note - Rosario Patel RN - 06/07/2024 9:[address]. Abbott discharged patient to home with electronic prescription for Famotidine and GERD diet.Patient to return as needed. IC RELATIONS CONSULTANT documented in this encounter Plan of Treatment Scheduled Orders Name Type Priority Associated Diagnoses Order Schedule Surgical pathology Pathology and Cytology Timed Positive H. pylori test Dyspepsia Release Upon Ordering for 1 Occurrences starting 06/07/2024 documented as of this encounter Procedures Procedure Name Priority Date/Time Associated Diagnosis Comments H. PYLORI UREASE SCREEN (SAMPSON TEST) STAT 06/07/2024 8:28 AM PUBLIC RELATIONS CONSULTANT BOUGIE DILATION 06/07/2024 8:02 AM PUBLIC RELATIONS CONSULTANT Positive H. pylori test Dyspepsia ESOPHAGOGASTRODUODENOSCOPY BIOPSY 06/07/2024 8:02 AM PUBLIC RELATIONS CONSULTANT Positive H. pylori test Dyspepsia EGD 06/07/2024 7:21 AM PUBLIC RELATIONS CONSULTANT documented in this encounter Results * H. pylori urease screen (SAMPSON test) Tissue (06/07/2024 8:28 AM PUBLIC RELATIONS CONSULTANT) H. pylori, rapid (SAPMSON) Negative Negative Tissue 06/07/2024 8:28 AM PUBLIC RELATIONS CONSULTANT 06/07/2024 12:00 PM PUBLIC RELATIONS CONSULTANT Elisa Abbott MD LAB MICROBIOLOGY - GENERAL ORDERABLES Final Result [facility] 1 [facility] Department [place] [address] * EGD (06/07/2024 7:21 AM PUBLIC RELATIONS CONSULTANT) Anatomical Region Laterality Modality Other Narrative Procedure Note Elisa Abbott MD - 06/07/2024 7:[address] [facility] Patient Name: Elizabeth Oates Procedure Date: 06/07/2024 7:21 AM Date of : 1965 Admit Type: Outpatient Age: 58 Gender: Female Attending MD: Elisa Abbott M.D. Room: [facility] 1 Note Status: [...] passed under direct vision. The Endoscope GIF-H190 [id number] was introduced through the mouth, and advanced [...] 7:21 AM Procedure Code(s): --- Professional --- 41505, Esophagogastroduodenoscopy, flexible, transoral; with biopsy, single or multiple 77735, Dilation of esophagus, by unguided sound or bougie, single or multiple passes Diagnosis Code(s): --- Professional --- K31.89, Other diseases of stomach and duodenum R13.10, Dysphagia, unspecified CPT copyright 2020 [employer]. All rights reserved. The codes documented in this report are preliminary and upon orthopedic coder reviewmay be revised to meet current compliance requirements. Recognized by the [place] [employer] for promoting quality [...] 0800, Pre-Procedure (GI) Restarted 06/07/2024 8:29 AM PUBLIC RELATIONS CONSULTANT New Bag 06/07/2024 8:12 AM PUBLIC RELATIONS CONSULTANT 30 mL/hr sodium chloride 0.9% infusion 125 [...] Recently Administered Medications Times are shown in PUBLIC RELATIONS CONSULTANT. Continuous Medication Order 06/05/2024 06/06/2024 06/07/2024 sodium [...] 06/07/2024 documented in this encounter Care Teams Umbrella Mender Relationship Specialty Start Date End Date Tomasz Martinez PA [address] [place] [address] PCP - General 12/15/17 documented as of this encounter
--- OUTSIDE RECORDS SUMMARY | 2024-07-21 11:18 | XMS_ITS | Encounter Summary ---
Author Organization [facility] Healthcare Address [address] [place] [address] Care Team Providers Care Freight Car Cleaner Delta System Name Role Phone Tomasz Martinez Primary Care Provider [phone] Reason for Visit * Reason Onset Date Comments Pathology Results 06/13/2024 Encounter Details Date Type Department Care Team (Late st Contact Info) Description 06/13/2024 Telephone [facility] Medical Group Gastroenterology at [address] [place] [address] Orly Husain Pathology Results Social [...] on file 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 RATORY CUREMAN * Telephone Encounter - Orly Husain - 06/13/2024 4:08 PM CST ----- Message from Parvez Leach NP sent at 06/13/2024 2:16 PM LABORATORY CUREMAN ----- Okay to add her to my schedule on June 23 after lunch so that we can start her on treatment for the H pylori. I only have 10 scheduled that day and only two after lunch. ----- Message ----- From: Orly Husain Sent: 06/13/2024 12:31 PM LABORATORY CUREMAN To: Elisa Abbott MD; # Next opening with Dr. Abbott is in October. Parvez and Ira's next available appointments are end of Sep. Please advise if pt should be worked in somewhere. ----- Message ----- From: Elisa Abbott MD Sent: 06/12/2024 5:47 PM LABORATORY CUREMAN To: [facility] Patient need to be seen in the office by myself or by Ira or by Parvez Diagnosis gastritis with H.pylori ----- Message ----- From: Interface, Lab Results In Sent: 06/09/2024 8:58 AM LABORATORY CUREMAN To: Elisa Abbott MD RATORY CUREMAN documented in this encounter Plan of Treatment Not on file documented as of this encounter Visit Diagnoses Not on filedocumented in this encounter Care Teams Freight Car Cleaner Delta System Relationship Specialty Start Date End Date Tomasz Martinez PA [address] [place] [address] PCP - General 12/15/17 documented as of this encounter
--- OUTSIDE RECORDS SUMMARY | 2024-07-21 11:18 | XMS_ITS | Encounter Summary ---
Author Organization [facility] Healthcare Address [address] [place] [address] Care Team Providers Care Caregivers Homecare Name Role Phone Tomasz Martinez Primary Care Provider [phone] Reason for Visit * Auth/Cert (Routine) Specialty Diagnoses / Procedures Referred By aCrolina t Referred To Contact Diagnoses Family history of colon cancer Family history of colon cancer [Z80.0] Procedures [place] COLONOSCOPY FLX DX W/COLLJ SPEC WHEN PFRMD COLONOSCOPY Referral ID Status Reason Start Date Expiration Date Visits Re quested Visits Authorized [id number] 1 1 Encounter Details Date Type Department Care Team (Late st Contact Info) Description 02/03/2023 12:18 PM CDT Anesthesia Event [facility] [address] [place] [address] [place] [address] [facility] [address] [place] [address] Vinita Engel MD [address] [place] [address] Anesthesia Record Procedure Summary Procedure Name Responsible [...] on file 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 Gender Identity Not on file Sexual Orientation Not on file documented as of this encounter OR Notes * Anesthesia Postprocedure Evaluation - Vinita Engel MD - 02/03/2023 12:42 PM CDT Patient: Elizabeth Oates Procedure Summary Date: 02/03/23 Room / Location: [facility] 1 / [facility] Anesthesia Start: 1218 Anesthesia Stop: [...] - patient participated Level of consciousness: arouses front office representative Pain score: 0 Pain management: adequate Airway [...] LEVOTHROID) 50 mcg tablet -- -- -- ProviderbAdoulaye MD ondansetron (ZOFRAN) 4 mg tablet -- [...] mL/hr documented in this encounter Care Teams Caregivers Homecare Relationship Specialty Start Date End Date Tomasz Martinez PA [address] [place] [address] PCP - General 12/15/17 documented as of this encounter
--- OUTSIDE RECORDS SUMMARY | 2024-07-21 11:18 | XMS_ITS | Encounter Summary ---
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
--- OUTSIDE RECORDS SUMMARY | 2024-07-21 11:18 | XMS_ITS | Encounter Summary ---
Author Organization [facility] Healthcare Address [facility] [place] [address] Care Team Providers Care Toy Packer Name Role Phone Tomasz Martinez Primary Care Provider [phone] Reason for Visit * Reason Comments Back Pain Encounter Details Date Type Department Care Team (Late st Contact Info) Description 07/14/2023 2:21 PM QUESTIONED DOCUMENTS EXAMINER - 07/14/2023 3:31 PM QUESTIONED DOCUMENTS EXAMINER Emergency [facility] [address] [place] [address] Paresthesia of right leg (Primary Dx) Discharge [...] on file 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 QUESTIONED DOCUMENTS EXAMINER Gender Identity Not on file Sexual Orientation Not on file documented as of this encounter Last Filed Vital Signs Vital Sign Reading Time Taken Comments Blood Pressure 141/101 07/14/2023 1:59 PM QUESTIONED DOCUMENTS EXAMINER Pulse 99 07/14/2023 1:59 PM QUESTIONED DOCUMENTS EXAMINER Temperature 37.8 ??C (100 ??F) 07/14/2023 1:59 PM QUESTIONED DOCUMENTS EXAMINER Respiratory Rate 18 07/14/2023 1:59 PM QUESTIONED DOCUMENTS EXAMINER Oxygen Saturation 99% 07/14/2023 1:59 PM QUESTIONED DOCUMENTS EXAMINER Inhaled Oxygen Concentration - - Weight 114.3 kg (251 lb 15.8 oz) 07/14/2023 3:05 PM QUESTIONED DOCUMENTS EXAMINER Height 154.9 cm (5' 1 ) 07/14/2023 3:05 PM QUESTIONED DOCUMENTS EXAMINER Body Mass Index 47.61 07/14/2023 3:05 PM QUESTIONED DOCUMENTS EXAMINER documented in this encounter Discharge Instructions * Discharge Instructions* Jorge Hassan NP - 07/14/2023 3:23 PM QUESTIONED DOCUMENTS EXAMINER You likely have an overactive nerve to your right thigh. Take the medication as directed. Follow up with your primary care physician as discussed. TIONED DOCUMENTS EXAMINER * Attachments The following attachments cannot be sent through Care Everywhere. * Paraesthesias (Togolese) documented in this encounter Medications at Time [...] 1 tablet (50 mcg total) by mouth yardage tufting machine operator before breakfast ondansetron (ZOFRAN) 4 mg [...] right leg Jorge Hassan NP 07/14/23 1605 TIONED DOCUMENTS EXAMINER * Mary Kay Escobedo RN - 07/14/2023 [...] had a sinus infection x 1 week TIONED DOCUMENTS EXAMINER TIONED DOCUMENTS EXAMINER documented in this encounter Plan of Treatment [...] For 1 dose Given 07/14/2023 3:25 PM QUESTIONED DOCUMENTS EXAMINER 200 mg documented in this encounter Active and Recently Administered Medications Times are shown in QUESTIONED DOCUMENTS EXAMINER. Scheduled Medication Order 07/12/2023 07/13/2023 07/14/2023 gabapentin [...] 1 documented in this encounter Care Teams Toy Packer Relationship Specialty Start Date End Date Tomasz Martinez PA [address] [place] [address] PCP - General 12/15/17 documented as of this encounter
--- OUTSIDE RECORDS SUMMARY | 2024-07-21 11:18 | XMS_ITS | Encounter Summary ---
Author Organization [facility] Healthcare Address [address] [place] [address] Care Team Providers Care Realtime Captioner Name Role Phone Tomasz Martinez Primary Care Provider [phone] Reason for Visit * Auth/Cert (Routine) Specialty Diagnoses / Procedures Referred By Contlainey t Referred To Contact Diagnoses Positive H. pylori test Dyspepsia Positive H. pylori test [A04.8] Dyspepsia [R10.13] Procedures [place] ESOPHAGOGASTRODUODENOSCOPY TRANSORAL DIAGNOSTIC ESOPHAGOGASTRODUODENOSCOPY Referral ID Status Reason Start Date Expiration Date Visits Re quested Visits Authorized [id number] 1 1 Encounter Details Date Type Department Care Team (Latest Contact Info) Description 06/07/2024 8:30 AM ASSISTANT FOREMAN - 06/07/2024 9:00 AM ASSISTANT FOREMAN Surgery [address] [address] Elisa Abbott MD [address] [place] [address] ESOPHAGOGASTRODUODENOSCOPY BIOPSY Surgery Details Date/Time Status Location OR Service Patient Class Case Class Case Type Trauma Case? 06/07/2024 8:30 AM Posted [facility] 01 Gastroenterology Outpatient Elective Panel [...] file 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 ASSISTANT FOREMAN Gender Identity Not on file Sexual Orientation Not on file documented as of this encounter Last Filed Vital Signs Vital Sign Reading Time Taken Comments Blood Pressure 120/88 06/07/2024 8:48 AM ASSISTANT FOREMAN Pulse 74 06/07/2024 8:48 AM ASSISTANT FOREMAN Temperature 36.9 ??C (98.4 ??F) 06/07/2024 7:25 AM CS T Respiratory Rate 18 06/07/2024 8:48 AM ASSISTANT FOREMAN Oxygen Saturation 95% 06/07/2024 8:48 AM ASSISTANT FOREMAN Inhaled Oxygen Concentration - - Weight 109.3 kg (241 lb) 06/07/2024 7:25 AM ASSISTANT FOREMAN Height 154.9 cm (5' 1 ) 06/07/2024 7:25 AM ASSISTANT FOREMAN Body Mass Index 45.54 06/07/2024 7:25 AM ASSISTANT FOREMAN documented in this encounter Medications at Time [...] 1 tablet (50 mcg total) by mouth model maker fiberglass before breakfast ondansetron (ZOFRAN) 4 mg tablet [...] 1 tablet (50 mcg total) by mouth model maker fiberglass before breakfast ondansetron (ZOFRAN) 4 mg tablet [...] Dysphagia GI PLAN/RECOMMENDATIONS: EGD Elisa Abbott MD STANT FOREMAN documented in this encounter Procedure Notes * Elisa Abbott MD - 06/07/2024 7:21 AM CSTAssociated Order(s): EGD [facility] Patient Name: Elizabeth Oates Procedure Date: 06/07/2024 7:21 AM Date of : 1965 Admit Type: Outpatient Age: 58 Gender: Female Attending MD: Elisa Abbott M.D. Room: [facility] 1 Note Status: Finalized Patient [...] passed under direct vision. The Endoscope GIF-H190 [id number] was introduced through the mouth, and advanced [...] 7:21 AM Procedure Code(s): --- Professional --- 41947, Esophagogastroduodenoscopy, flexible, transoral; with biopsy, single or multiple 07318, Dilation of esophagus, by unguided sound or bougie, single or multiple passes Diagnosis Code(s): --- Professional --- K31.89, Other diseases of stomach and duodenum R13.10, Dysphagia, unspecified CPT copyright 2020 [employer]. All rights reserved. The codes documented in this report are preliminary and upon human resources receptionist review may be revised to meet current compliance requirements. Recognized by the [employer] for promoting quality in endoscopy STANT FOREMAN documented in this encounter Miscellaneous Notes * Perioperative Nursing Note - Rosario Patel, RN - 06/07/2024 9:[address] Abbott discharged patient to home with electronic prescription for Famotidine and GERD diet.Patient to return as needed. STANT FOREMAN documented in this encounter Plan of Treatment Scheduled Orders Name Type Priority Associated Diagnoses Order Schedule Surgical pathology Pathology and Cytology Timed Positive H. pylori test Dyspepsia Release Upon Ordering for 1 Occurrences starting 06/07/2024 documented as of this encounter Procedures Procedure Name Priority Date/Time Associated Diagnosis Comments H. PYLORI UREASE SCREEN (SAMPSON TEST) STAT 06/07/2024 8:28 AM ASSISTANT FOREMAN BOUGIE DILATION 06/07/2024 8:02 AM ASSISTANT FOREMAN Positive H. pylori test Dyspepsia ESOPHAGOGASTRODUODENOSCOPY BIOPSY 06/07/2024 8:02 AM ASSISTANT FOREMAN Positive H. pylori test Dyspepsia EGD 06/07/2024 7:21 AM ASSISTANT FOREMAN documented in this encounter Results * H. pylori urease screen (SAMPSON test) Tissue (06/07/2024 8:28 AM ASSISTANT FOREMAN) H. pylori, rapid (SAMPSON) Negative Negative Tissue 06/07/2024 8:28 AM ASSISTANT FOREMAN 06/07/2024 12:00 PM ASSISTANT FOREMAN Elisa Abbott MD LAB MICROBIOLOGY - GENERAL ORDERABLES Final Result [facility] 1 [facility] [place] [address] * EGD (06/07/2024 7:21 AM ASSISTANT FOREMAN) Anatomical Region Laterality Modality Other Narrative Procedure Note Elisa Abbott MD - 06/07/2024 7:21 AM CST [facility] Patient Name: Elizabeth Oates Procedure Date: 06/07/2024 7:21 AM Date of : 1965 Admit Type: Outpatient Age: 58 Gender: Female Attending MD: Elisa Abbott M.D. Room: [facility] 1 Note Status: Finalized Patient [...] passed under direct vision. The Endoscope GIF-H190 [id number] was introduced through the mouth, and advanced [...] 7:21 AM Procedure Code(s): --- Professional --- 62785, Esophagogastroduodenoscopy, flexible, transoral; with biopsy, single or multiple 65599, Dilation of esophagus, by unguided sound or bougie, single or multiple passes Diagnosis Code(s): --- Professional --- K31.89, Other diseases of stomach and duodenum R13.10, Dysphagia, unspecified CPT copyright 2020 [employer]. All rights reserved. The codes documented in this report are preliminary and upon human resources receptionist reviewmay be revised to meet current compliance requirements. Recognized by the [employer] for promoting quality [...] 0800, Pre-Procedure (GI) Restarted 06/07/2024 8:29 AM ASSISTANT FOREMAN New Bag 06/07/2024 8:12 AM ASSISTANT FOREMAN 30 mL/hr sodium chloride 0.9% infusion 125 [...] Administered Medications Times are shown in ASSISTANT FOREMAN. Continuous Medication Order 06/05/2024 06/06/2024 06/07/2024 sodium [...] 06/07/2024 documented in this encounter Care Teams Realtime Captioner Relationship Specialty Start Date End Date Tomasz Martinez PA [address] [place] [address] PCP - General 12/15/17 documented as of this encounter
--- OUTSIDE RECORDS SUMMARY | 2024-07-21 11:18 | XMS_ITS | Encounter Summary ---
Author Organization [facility] Healthcare Address [address] [place] [address] Care Team Providers Care Director Report Name Role Phone Tomasz Martinez Primary Care Provider [phone] Encounter Details Date Type Department Care Team (Late st Contact Info) Description 06/07/2024 Orders Only [facility] [address] [place] [address] Elisa Abbott MD [address] [place] [address] [id number] Social History Tobacco Use Types Packs/Day Years [...] on file 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 END POLISHER Gender Identity Not on file Sexual Orientation Not on file documented as of this encounter Plan of Treatment Not on file documented as of this encounter Procedures Procedure Name Priority Date/Time Associated Diagnosis Comments SURGICAL PATHOLOGY Routine 06/07/2024 12 :01 PM END POLISHER documented in this encounter Results * Surgical pathology (06/07/2024 12:01 PM END POLISHER) Gastric/Stomach biopsy 06/07/2024 12:01 PM END POLISHER 06/07/2024 12:01 PM END POLISHER Narrative 06/09/2024 8:56 AM END POLISHER EPIC results best viewed via link to PDF [facility] Department of Pathology [address] [place] [id number] Note to Patients: This report may contain [...] Final Report Patient Name: ??ELIZABETH OATES Address: ??[address] [place] [address], ??[place], [place] ??[address] Gender: ??F : ??1965 (Age: 58) Service: ??Gastro Location: ??[facility] Hospital #: ??[id number] Patient Type: ??[facility] Accession # ?[id number] Taken: ??06/07/2024 Received: ??06/07/2024 Accessioned: ??06/07/2024 Reported: [...] determined by the Surgical Pathology Department at [facility] as part of an ongoing quality assurance lead program and in compliance with federally mandated [...] characteristics determined by the Surgical Pathology Department [facility]. ??It has not been cleared or approved [...] filedocumented in this encounter Care Teams Director Report Relationship Specialty Start Date End Date Tomasz Martinez PA [address] [place] [address] PCP - General 12/15/17 documented as of this encounter
--- OUTSIDE RECORDS SUMMARY | 2024-07-21 11:18 | XMS_ITS | Referral Summary ---
Author Organization [facility] Address [address] [place] [address] Care Team Providers Care Resident Care Director Name Role Phone Tomasz Martinez Primary Care Provider [phone] Encounters Date Type Department Care Team Description 4 1:15 PM WINDOWS SYSTEM ADMIN Office Visit [facility] Gastroenterology at [address] [place] [address] Parvez Leach NP Helicobacter pylori gastritis (Primary Dx); Family history of colon cancer 4 Telephone [facility] Gastroenterology at [address] [place] [address] Orly Husain Pathology Results 4 Orders Only [address] [address] Elisa Abbott MD 4 8:12 AM WINDOWS SYSTEM ADMIN Anesthesia Event [address] [address] Dillon Alva MD 4 8:30 AM WINDOWS SYSTEM ADMIN - 4 9:00 AM WINDOWS SYSTEM ADMIN Surgery [address] [address] Elisa Abbott MD ESOPHAGOGASTRODUODENOSCOPY BIOPSY 4 7:10 AM WINDOWS SYSTEM ADMIN - 4 9:23 AM WINDOWS SYSTEM ADMIN Hospital Encounter [address] [address] Elisa Abbott MD Positive H. pylori test; Dyspepsia Discharge Disposition: Discharge to home or self care 4 Telephone [facility] Gastroenterology at [address] [place] [address] Shania Landis MA 4 Telephone [facility] Gastroenterology at [address], [place] [address] Shania Landis MA 4 Telephone [facility] Gastroenterology at [address], [place] [address] Shania Landis MA 4 9:30 AM CDT Office Visit [facility] Gastroenterology at [address] [phone] Elisa Abbott MD Dyspepsia (Primary Dx); Esophageal dysphagia; Functional diarrhea from Last 3 Months Allergies No known active allergies Medications levothyroxine (SYNTHROID, LEVOTHROID) 50 mcg tablet Take 1 tablet (50 mcg total) by mouth ed manager before breakfast Active ondansetron (ZOFRAN) 4 mg [...] on file 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 WINDOWS SYSTEM ADMIN Gender Identity Not on file Sexual Orientation Not on file Last Filed Vital Signs Vital Sign Reading Time Taken Comments Blood Pressure 138/90 06/23/2024 12:56 PM WINDOWS SYSTEM ADMIN Pulse 78 06/23/2024 12:56 PM WINDOWS SYSTEM ADMIN Temperature 36.8 ??C (98.3 ??F) 06/07/2024 9:04 AM CS T Respiratory Rate 18 06/07/2024 9:04 AM WINDOWS SYSTEM ADMIN Oxygen Saturation 96% 06/23/2024 12:56 PM WINDOWS SYSTEM ADMIN Inhaled Oxygen Concentration - - Weight 111 kg (244 lb 12.8 oz) 06/23/2024 12:56 PM WINDOWS SYSTEM ADMIN Height 154.9 cm (5' 1 ) 06/23/2024 12:56 PM WINDOWS SYSTEM ADMIN Body Mass Index 46.25 06/23/2024 12:56 PM WINDOWS SYSTEM ADMIN Plan of Treatment Not on file Procedures Procedure Name Priority Date/Time Associated Diagnosis Comments SURGICAL PATHOLOGY Routine 06/07/2024 12:01 PM WINDOWS SYSTEM ADMIN H. PYLORI UREASE SCREEN (SAMPSON TEST) STAT 06/07/2024 8:28 AM WINDOWS SYSTEM ADMIN BOUGIE DILATION 06/07/2024 8:02 AM WINDOWS SYSTEM ADMIN Positive H. pylori test Dyspepsia ESOPHAGOGASTRODUODENOSCOPY BIOPSY 06/07/2024 8:02 AM WINDOWS SYSTEM ADMIN Positive H. pylori test Dyspepsia EGD 06/07/2024 7:21 AM WINDOWS SYSTEM ADMIN COLONOSCOPY 02/03/2023 10:29 AM CDT from Last 3 Months or Most Recently Relevant to Health Maintenance Results * Surgical pathology (06/07/2024 12:01 PM WINDOWS SYSTEM ADMIN) Gastric/Stomach biopsy 06/07/2024 12:01 PM WINDOWS SYSTEM ADMIN 06/07/2024 12:01 PM WINDOWS SYSTEM ADMIN Narrative 06/09/2024 8:56 AM WINDOWS SYSTEM ADMIN EPIC results best viewed via link to PDF [facility] Department of Pathology [address] [place] [address] Note to Patients: This report may contain [...] Final Report Patient Name: ??ELIZABETH VELASQUEZ Address: ??[address] [place] [address], ??[place], [place] ??[address] Gender: ??F : ??1965 (Age: 58) Service: ??Gastro Location: ??[facility] Hospital #: ??[id number] Patient Type: ??[facility] Accession # ?[id number] Taken: ??06/07/2024 Received: ??06/07/2024 Accessioned: ??06/07/2024 Reported: [...] by the Surgical Pathology Department at [facility] as part of an ongoing quality control supervisor program and in compliance with federally mandated [...] characteristics determined by the Surgical Pathology Department [facility]. ??It has not been cleared or [...] screen (SAMPSON test) Tissue (06/07/2024 8:28 AM WINDOWS SYSTEM ADMIN) H. pylori, rapid (SAMPSON) Negative Negative Tissue 06/07/2024 8:28 AM WINDOWS SYSTEM ADMIN 06/07/2024 12:00 PM WINDOWS SYSTEM ADMIN Elisa Abbott MD LAB MICROBIOLOGY - GENERAL ORDERABLES Final Result [facility]ENN[facility]) [facility] Department [place] [address] * EGD (06/07/2024 7:21 AM WINDOWS SYSTEM ADMIN) Anatomical Region Laterality Modality Other Narrative Procedure Note Elisa Abbott MD - 06/07/2024 7:21 AM CST [facility] Patient Name: Elizabeth Velasquez Procedure Date: 06/07/2024 7:21 AM Date of : 1965 Admit Type: Outpatient Age: 58 Gender: Female Attending MD: Elisa Abbott M.D. Room: [facility] ENDOSCOPY ROOM 1 Note Status: Finalized Patient [...] passed under direct vision. The Endoscope GIF-H190 [id number] was introduced through the mouth, and advanced [...] 7:21 AM Procedure Code(s): --- Professional --- 00400, Esophagogastroduodenoscopy, flexible, transoral; with biopsy, single or multiple 67647, Dilation of esophagus, by unguided sound or bougie, single or multiple passes Diagnosis Code(s): --- Professional --- K31.89, Other diseases of stomach and duodenum R13.10, Dysphagia, unspecified CPT copyright 2020 [employer]. All rights reserved. The codes documented in this report are preliminary and upon building illuminating engineer reviewmay be revised to meet current compliance requirements. Recognized by the [employer] for promoting quality [...] MD: Elisa Abbott M.D. Room: [facility] ENDOSCOPY ROOM 1 Note Status: Finalized Patient [...] under direct vision. The Pediatric Colonoscope PCF-H190L [id number] was introducedthrough the anus and advanced to [...] The hemorrhoids were small. Electronically signed by Elias Abbott M.D. Elisa Abbott M.D. 02/03/2023 12:48:17 PM Number of Addenda: 0 Note Initiated On: 02/03/2023 10:29 AM Procedure Code(s): --- Professional --- 41954, Colonoscopy, flexible; with biopsy, single or multiple Diagnosis Code(s): --- Professional --- Z80.0, Family history of malignant neoplasm of digestive organs K64.8, Other hemorrhoids CPT copyright 2020 [employer]. All rights reserved. The codes documented in this report are preliminary and upon building illuminating engineer reviewmay be revised to meet current compliance requirements. Recognized by the [employer] for promoting quality in endoscopy Elisa Abbott MD ENDOSCOPY PROCEDURES Final Result from Last 3 Months or Most Recently Relevant to Health Maintenance [place] Advance Directives For more information, please contact: [phone] * Full Code (Latest Code Status on [...] 11:16 AM 01/18/2018 3:21 PM Care Teams Resident Care Director Relationship Specialty Start Date End Date Tomasz Martinez PA [address] [place] [address] PCP - General 12/15/17
--- OUTSIDE RECORDS SUMMARY | 2024-07-21 11:18 | XMS_ITS | Clinical Summary ---
Author Organization [facility] Address [address] [place] [address] Care Team Providers Care Technical Inspector Name Role Phone Tomasz Martinez Primary Care Provider [phone] Allergies No known active allergies Medications levothyroxine (SYNTHROID, LEVOTHROID) 50 mcg tablet Take 1 tablet (50 mcg total) by mouth bulker before breakfast Active ondansetron (ZOFRAN) 4 mg [...] Department Care Team Description 4 1:15 PM SUPERVISOR FINISHING ROOM Office Visit [facility] Gastroenterology at [address] [place] [address] Parvez Leach NP Helicobacter pylori gastritis (Primary Dx); Family history of colon cancer 4 Telephone [facility] Gastroenterology at [address] [place] [address] Orly Husain Pathology Results 4 8:30 AM SUPERVISOR FINISHING ROOM - 4 9:00 AM SUPERVISOR FINISHING ROOM Surgery [address] [address] Elisa Abbott MD ESOPHAGOGASTRODUODENOSCOPY BIOPSY 4 8:12 AM SUPERVISOR FINISHING ROOM Anesthesia Event [address] [address] Dillon Alva MD 4 7:10 AM SUPERVISOR FINISHING ROOM - 4 9:23 AM SUPERVISOR FINISHING ROOM Hospital Encounter [address] [address] Elisa Abbott MD Positive H. pylori test; Dyspepsia Discharge Disposition: Discharge to home or self care 4 Orders Only [address] [address] Elisa Abbott MD 4 Telephone [facility] Gastroenterology at [address] [address] Shania Landis MA 4 Telephone [facility] Gastroenterology at [address] [place] [address] Shania Landis MA 4 9:30 AM CDT Office Visit [facility] Gastroenterology at [address] [address] Elisa Abbott MD Dyspepsia (Primary Dx); Esophageal dysphagia; Functional diarrhea 4 Telephone [facility] Gastroenterology at [address] [address] Shania Landis MA from Last 3 Months [...] file 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 SUPERVISOR FINISHING ROOM Gender Identity Not on file Sexual Orientation Not on file Obstetrics History Last Filed Vital Signs Vital Sign Reading Time Taken Comments Blood Pressure 138/90 06/23/2024 12:56 PM SUPERVISOR FINISHING ROOM Pulse 78 06/23/2024 12:56 PM SUPERVISOR FINISHING ROOM Temperature 36.8 ??C (98.3 ??F) 06/07/2024 9:04 AM CS T Respiratory Rate 18 06/07/2024 9:04 AM SUPERVISOR FINISHING ROOM Oxygen Saturation 96% 06/23/2024 12:56 PM SUPERVISOR FINISHING ROOM Inhaled Oxygen Concentration - - Weight 111 kg (244 lb 12.8 oz) 06/23/2024 12:56 PM SUPERVISOR FINISHING ROOM Height 154.9 cm (5' 1 ) 06/23/2024 12:56 PM SUPERVISOR FINISHING ROOM Body Mass Index 46.25 06/23/2024 12:56 PM SUPERVISOR FINISHING ROOM Plan of Treatment Health Maintenance Due Date [...] Comments SURGICAL PATHOLOGY Routine 06/07/2024 12:01 PM SUPERVISOR FINISHING ROOM H. PYLORI UREASE SCREEN (SAMPSON TEST) STAT 06/07/2024 8:28 AM SUPERVISOR FINISHING ROOM BOUGIE DILATION 06/07/2024 8:02 AM SUPERVISOR FINISHING ROOM Positive H. pylori test Dyspepsia ESOPHAGOGASTRODUODENOSCOPY BIOPSY 06/07/2024 8:02 AM SUPERVISOR FINISHING ROOM Positive H. pylori test Dyspepsia EGD 06/07/2024 7:21 AM SUPERVISOR FINISHING ROOM COLONOSCOPY 02/03/2023 10:29 AM CDT from Last 3 Months or Most Recently Relevant to Health Maintenance Results * Surgical pathology (06/07/2024 12:01 PM SUPERVISOR FINISHING ROOM) Gastric/Stomach biopsy 06/07/2024 12:01 PM SUPERVISOR FINISHING ROOM 06/07/2024 12:01 PM SUPERVISOR FINISHING ROOM Narrative 06/09/2024 8:56 AM SUPERVISOR FINISHING ROOM EPIC results best viewed via link to PDF [facility] Department of Pathology [address] [place] [address] Note to Patients: This report may contain [...] Patient Name: ??ELIZABETH VELASQUEZ Address: ??[address], ??[place], [place] ??[address] Gender: ??F : ??1965 (Age: 58) Service: ??Gastro Location: ??[facility] Hospital #: ??[id number] Patient Type: ??[facility] Accession # ?[id number] Taken: ??06/07/2024 Received: ??06/07/2024 Accessioned: ??06/07/2024 Reported: [...] 2 mm. All in B. T.A. Julio Collier.Sarahi., P.A./Muna Gage M.D. REPORT IMAGES AND SCANNED DOCUMENTS, IF INCLUDED, ONLY VIEWABLE IN PDF VERSION OF REPORT The performance characteristics of some immunohistochemical stains, fluorescence in-situ hybridization tests and immunophenotyping by flow cytometry cited in this report (if any) were determined by the Surgical Pathology Department at [facility] as part of an ongoing data quality consultant program and in compliance with federally mandated [...] characteristics determined by the Surgical Pathology Department [facility]. ??It has not been cleared [...] screen (SAMPSON test) Tissue (06/07/2024 8:28 AM SUPERVISOR FINISHING ROOM) H. pylori, rapid (SAMPSON) Negative Negative Tissue 06/07/2024 8:28 AM SUPERVISOR FINISHING ROOM 06/07/2024 12:00 PM SUPERVISOR FINISHING ROOM Elisa Abbott MD LAB MICROBIOLOGY - GENERAL ORDERABLES Final Result [facility]ENN[facility]ER ON LICENSE OF [facility] Department [place] [address] * EGD (06/07/2024 7:21 AM SUPERVISOR FINISHING ROOM) Anatomical Region Laterality Modality Other Narrative Procedure Note Elias Abbott MD - 06/07/2024 7:21 AM CST [facility] Patient Name: Elizabeth Velasquez Procedure Date: 06/07/2024 7:21 AM Date of : 1965 Admit Type: Outpatient Age: 58 Gender: Female Attending MD: Elisa Abbott M.D. Room: [facility] ENDOSCOPY ROOM 1 Note [...] passed under direct vision. The Endoscope GIF-H190 [id number] was introduced through the mouth, and advanced [...] 7:21 AM Procedure Code(s): --- Professional --- 34815, Esophagogastroduodenoscopy, flexible, transoral; with biopsy, single or multiple [address]7748, Dilation of esophagus, by unguided sound or bougie, single or multiple passes Diagnosis Code(s): --- Professional --- K31.89, Other diseases of stomach and duodenum R13.10, Dysphagia, unspecified CPT copyright 2020 [employer]. All rights reserved. The codes documented in this report are preliminary and upon tool mechanic reviewmay be revised to meet current compliance requirements. Recognized by the [employer] for promoting quality in endoscopy us Elisa Abbott MD ENDOSCOPY PROCEDURES Final Result * COLONOSCOPY (02/03/2023 10:29 AM CDT) Anatomical Region Laterality Modality Other Narrative Procedure Note Elisa Abbott MD - 02/03/2023 10:[address] [facility] Patient Name: Elizabeth Velasquez Procedure Date: 02/03/2023 10:29 AM Date of : 1965 Admit Type: Outpatient Age: 57 Gender: Female Attending MD: Elisa Abbott M.D. Room: [facility] ENDOSCOPY ROOM 1 Note [...] under direct vision. The Pediatric Colonoscope PCF-H190L [id number] was introducedthrough the anus and advanced to [...] 10:29 AM Procedure Code(s): --- Professional --- 37196, Colonoscopy, flexible; with biopsy, single or multiple Diagnosis Code(s): --- Professional --- Z80.0, Family history of malignant neoplasm of digestive organs K64.8, Other hemorrhoids CPT copyright 2020 [employer]. All rights reserved. The codes documented in this report are preliminary and upon tool mechanic reviewmay be revised to meet current compliance requirements. Recognized by the [employer] for promoting quality in endoscopy Elisa Abbott MD ENDOSCOPY PROCEDURES Final Result from Last 3 Months or Most Recently Relevant to Health Maintenance Insurance [employer] [place] [employer] [place] [employer] [place] Advance Directives For more information, please contact: [phone] * Full Code (Latest Code Status on [...] 11:16 AM 01/18/2018 3:21 PM Care Teams Technical Inspector Relationship Specialty Start Date End Date Tomasz Martinez PA [address] [place] [address] PCP - General 12/15/17
--- OUTSIDE RECORDS SUMMARY | 2024-07-21 11:18 | XMS_ITS | Encounter Summary ---
Author Organization [facility] Healthcare Address [address] [place] [address] Care Team Providers Care Certified Dental Assistant Name Role Phone Tomasz Martinez Primary Care Provider [phone] Reason for Visit * Reason Comments H. Pylori Infection Patient is here to d carlos re treatment for Hpylori infection Encounter Details Date Type Department Care Team (Latest Contact Info) Description 06/23/2024 1:15 PM LAST IRONER Office Visit [facility] Gastroenterology at [address] [place] [address] Parvez Leach NP 4 [facility] [address] [place] [address] Helicobacter pylori gastritis (Primary Dx); [...] on file 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 LAST IRONER Gender Identity Not on file Sexual Orientation Not on file documented as of this encounter Last Filed Vital Signs Vital Sign Reading Time Taken Comments Blood Pressure 138/90 06/23/2024 12:56 PM LAST IRONER Pulse 78 06/23/2024 12:56 PM LAST IRONER Temperature - - Respiratory Rate - - Oxygen Saturation 96% 06/23/2024 12:56 PM LAST IRONER Inhaled Oxygen Concentration - - Weight 111 kg (244 lb 12.8 oz) 06/23/2024 12:56 PM LAST IRONER Height 154.9 cm (5' 1 ) 06/23/2024 12:56 PM LAST IRONER Body Mass Index 46.25 06/23/2024 12:56 PM LAST IRONER documented in this encounter Patient Instructions * Patient Instructions* Parvez Leach NP - 06/23/2024 1:15 PM LAST IRONER Your treatment for H pylori will include [...] if you get, we need to treat. IRONER IRONER IRONER IRONER IRONER documented in this encounter Ordered Prescriptions Prescription [...] biopsy was normal. Dilated with a 50 Tajik Carreon dilator. No longer complaining of significant [...] 1 tablet (50 mcg total) by mouth machine adjuster helper before breakfast ondansetron (ZOFRAN) 4 mg tablet [...] time spent on the date of the mwxm-oz-vzvh encounter, including both nwbf-ek-giqh time (including staff/provider time spent providing education) and ips-yhgu-vz-face time (pre-charting, reviewing chart, post-charting) was 40 minutes. This note is dictated and transcribed by [employer]. Substation Maintenance Technician variances may occur. Despite proofreading, typographical errors may occur. My collaborating physicians are Dr. Elisa Abbott, Dr. Osvaldo Booker, & Dr. Chaka Hart-Gastroenterology. Parvez Leach NP IRONER documented in this encounter Plan of Treatment Not on file documented as of this encounter Visit Diagnoses Diagnosis Helicobacter pylori gastritis- Primary Family history of colon cancer Family history of malignant neoplasm of gastrointestinal tract documented in this encounter Care Teams Certified Dental Assistant Relationship Specialty Start Date End Date Tomasz Martinez PA [address] [place] [address] PCP - General 12/15/17 documented as of this encounter
--- OUTSIDE RECORDS SUMMARY | 2024-07-21 11:19 | XMS_ITS | Encounter Summary ---
Author Organization [facility] Address [address] [place] [address] Care Team Providers Care Extruder Operator Horizontal Name Role Phone Tomasz Martinez Primary Care Provider [phone] Reason for Visit * Reason Comments Toe Injury (L) Toe [place], Red, Feels Warm to Touch Encounter Details Date Type Department Care Team (Late st Contact Info) Description 06/05/2020 3:00 PM ROCK CONTRACTOR Office Visit [facility] [place] [address] [place] [address] [place] [id number] Shahnaz Griffith, JEFF [address] [place] [address] Infection of nail bed of toe of left foot (Primary Dx) Social History Tobacco Use Types Packs/Day Years Used Date Smoking Tobacco: Former Smokeless Tobacco: Never Comments Unknown Sex and Gender Information Value Date Recorded Sex Assigned at Not on file 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 ROCK CONTRACTOR Gender Identity Not on file Sexual Orientation Not on file documented as of this encounter Last Filed Vital Signs Vital Sign Reading Time Taken Comments Blood Pressure 128/98 06/05/2020 3:11 PM ROCK CONTRACTOR Pulse 85 06/05/2020 3:11 PM ROCK CONTRACTOR Temperature 36.7 ??C (98 ??F) 06/05/2020 3:11 PM ROCK CONTRACTOR Respiratory Rate 16 06/05/2020 3:11 PM ROCK CONTRACTOR Oxygen Saturation 99% 06/05/2020 3:11 PM ROCK CONTRACTOR Inhaled Oxygen Concentration - - Weight 110.3 kg (243 lb 3.2 oz) 06/05/2020 3:11 PM ROCK CONTRACTOR Height 156 cm (5' 1.42 ) 06/05/2020 3:11 PM ROCK CONTRACTOR Body Mass Index 45.33 06/05/2020 3:11 PM ROCK CONTRACTOR documented in this encounter Patient Instructions * Patient Instructions* Shahnaz Griffith NP - 06/05/2020 3:00 PM ROCK CONTRACTOR Infection prevention is a primary consideration for [...] Ibuprofen 600mg every 8 hours with food. CONTRACTOR documented in this encounter Ordered Prescriptions Prescription [...] the plan of care Shahnaz Griffith NP CONTRACTOR documented in this encounter Plan of Treatment Not on file documented as of this encounter Visit Diagnoses Diagnosis Infection of nail bed of toe of left foot- Primary documented in this encounter Care Teams Extruder Operator Horizontal Relationship Specialty Start Date End Date Tomasz Martinez PA [address] [place] [address] PCP - General 12/15/17 documented as of this encounter
--- OUTSIDE RECORDS SUMMARY | 2024-07-21 11:19 | XMS_ITS | Encounter Summary ---
Author Organization [facility] Care Team Providers Care Oracle E Business Developer Name Role Phone Tomasz Martinez Primary Care Provider [phone] Encounter Details Date Type Department Care Team (Latest Contact Info) Description 11/29/2018 Travel Social History Tobacco Use Types Packs/Day Years Used Date Smoking Tobacco: Never Smokeless Tobacco: Never Comments Unknown Sex and Gender Information Value Date Recorded Sex Assigned at Not on file 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 INSIDE SALES SPECIALIST Gender Identity Not on file Sexual Orientation Not on file documented as of this encounter Plan of Treatment Not on file documented as of this encounter Visit Diagnoses Not on filedocumented in this encounter Care Teams Oracle E Business Developer Relationship Specialty Start Date End Date Tomasz Martinez PA [address] [place] [address] PCP - General 12/15/17 documented as of this encounter
--- OUTSIDE RECORDS SUMMARY | 2024-07-21 11:19 | XMS_ITS | Encounter Summary ---
Author Organization [facility] Healthcare Address [address] [place] [address] Care Team Providers Care Machine Pecan Picker Name Role Phone Tomasz Martinez Primary Care Provider [phone] Reason for Visit * Reason Comments Diarrhea Abdominal Pain Encounter Details Date Type Department Care Team (Late st Contact Info) Description 02/17/2020 9:32 PM CDT - 02/18/2020 1:01 AM CDT Emergency [facility] Emergency Department [address] [place] [address] Magali Finch MD [address] [place] [address] [place] [address] Chronic colitis (Primary Dx); Abdominal pain; Diarrhea, unspecified type; Mesenteric adenitis Discharge Disposition: Discharge to home or self care Social History Tobacco Use Types Packs/Day Years Used Date Smoking Tobacco: Never Smokeless Tobacco: Never Comments Unknown Sex and Gender Information Value Date Recorded Sex Assigned at Not on file 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 RELIEF PHARMACIST Gender Identity Not on file Sexual Orientation [...] sent through Care Everywhere. * Adenitis, Mesenteric (Gambian) * Colitis (References) (Gambian) documented in this encounter Medications at Time of Discharge levothyroxine (SYNTHROID, LEVOTHROID) 50 mcg tablet Take 1 tablet (50 mcg total) by mouth sweater operator before breakfast ondansetron (ZOFRAN) 4 mg [...] Affect: Mood normal. Behavior: Behavior normal. Procedures [facility] Labs Reviewed URINALYSIS AND REFLEX TO [...] tendency for uric acid stone formation. Source: [employer].Last revised 08-12-2017 COMPREHENSIVE METABOLIC PANEL - Abnormal [...] by Annemarie Ribera M.D. : Report ID: [id number] Reading Location: [id number] BP 135/82 Pulse 92 Temp 37 ??C [...] Phyllis l Result JENNIFER RODRIGUEZ ([place]) 1 [facility] Department [place] [address] * (ABNORMAL) Urinalysis reflex to microscopic and [...] tendency for uric acid stone formation. Source: [employer]. Last revised 08-12-2017 us Magali Finch MD LAB MICROBIOLOGY - GENERA L ORDERABLES Final Result JENNIFER RODRIGUEZ ([place]) 1 [facility] Department [place] [address] * CT Abdomen Pelvis W Contrast (02/17/2020 [...] PM T: ??02/17/2020 11:37 PM Report ID: [id number] Reading Location: ??[id number] Narrative 02/17/2020 11:41 PM CDT [facility] Imaging Center ?Imaging Result Name: ELIZABETH OATES ? Ordering Phys: MAGALI FINCH Age: 54 ?Date of : 1965 ? Accession Number: [id number] Date of Service: 02/17/2020 ??Gender: F EXAM [...] Procedure Note Annemarie Ribera MD - 02/17/2020 [facility] Imaging Center Imaging Result Name: ELIZABETH OATES Ordering Phys: MAGALI FINCH Age: 54 Date of : 1965 Accession Number: [id number] Date of Service: 02/17/2020 Gender: F EXAM [...] by Annemarie Ribera M.D. : Report ID: [id number] Reading Location: [place] [address] us Magali Finch MD IMG CT PROCEDURES [...] ??mL/min/1.73m2 *Relative to young adult level If -[place] multiply value by 1.16. Estimated glomerular filtration [...] ORDERABLES Final Result [facility] ([place]) 1 [facility] Department [place] [address] * Differential, auto (02/17/2020 9:28 PM CDT) [...] ORDERABLES Final Result JENNIFER JENNIFER ([place]) 1 [facility] Department [place] [address] * (ABNORMAL) CBC with auto differential (02/17/2020 [...] RDW SD 45.0 35.7 - 48.1 fL [facility] NRBC abs 0.00 0.00 - 0.01 K/cumm [facility] ([place]) Blood specimen (specimen) 02/17/2020 9:28 PM CDT 02/17/2020 9:41 PM CDT us Annemarie Amador MD LAB BLOOD ORDERABLES Final Result [facility]ENN[facility] ([place]) 1 [facility] Department [place] [address] * (ABNORMAL) Comprehensive metabolic panel (02/17/2020 9:28 PM CDT) Sodium 139 135 - 145 mmol/L [facility] ([place] Potassium, pl 3.6 3.3 - 4.9 mmol/L [facility] ([place] Chloride 104 97 - 110 mmol/L [facility] ([place]) CO2 27 22 - 32 mmol/L [facility] Anion gap 9 2 - 15 mmol/L [facility] ([place] BUN 9 8 - 25 mg/dL [facility] ([place] Creatinine 0.57(L) 0.60 - 1.10 mg/dL [facility] ([place]) Glucose 101 70 - 199 mg/dL [facility] ([place] Comment: Interpretive Data Fasting glucose [...] Amador MD LAB BLOOD ORDERABLES Final Result [facility]ENN[facility] ([place]) 1 [facility] Department [place] [address] documented in this encounter Visit Diagnoses Diagnosis [...] ) documented in this encounter Care Teams Machine Pecan Picker Relationship Specialty Start Date End Date Tomasz Martinez PA [address] [place] [address] PCP - General 12/15/17 documented as of this encounter
--- OUTSIDE RECORDS SUMMARY | 2024-07-21 11:19 | XMS_ITS | Encounter Summary ---
Author Organization [facility] Healthcare Address [address] [place] [address] Care Team Providers Care Steel Handler Name Role Phone Tomasz Martinez Primary Care Provider [phone] Reason for Visit * Auth/Cert (Routine) Specialty Diagnoses / Procedures Referred By Carolina t Referred To Contact Diagnoses Family history of colon cancer Family history of colon cancer [Z80.0] Procedures OK COLONOSCOPY FLX DX W/COLLJ SPEC WHEN PFRMD COLONOSCOPY Referral ID Status Reason Start Date Expiration Date Visits Re quested Visits Authorized [id number] 1 1 Encounter Details Date Type Department Care Team (Latest Contact Info) Description 02/03/2023 10:04 AM CDT - 02/03/2023 1:27 PM CDT Hospital Encounter [facility] Digestive [facility] 1 [place] [address] Elisa Abbott MD [address] [place] [address] Family history of colon cancer Discharge Disposition: Discharge to home or self care Social History Tobacco Use Types Packs/Day Years Used Date Smoking Tobacco: Former Smokeless Tobacco: Never Comments Unknown Sex and Gender Information Value Date Recorded Sex Assigned at Not on file 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 SOLAR SALES ADVISOR Gender Identity Not on file Sexual [...] 1 tablet (50 mcg total) by mouth logistics account manager before breakfast ondansetron (ZOFRAN) 4 mg tablet [...] 1 tablet (50 mcg total) by mouth logistics account manager before breakfast 02/02/2023 ondansetron (ZOFRAN) 4 mg [...] - 02/03/2023 10:29 AM CDTAssociated Order(s): COLONOSCOPY [facility] Patient Name: Elizabeth Oates Procedure Date: 02/03/2023 10:29 AM Date of : 1965 Admit Type: Outpatient Age: 57 Gender: Female Attending MD: Elisa Abbott M.D. Room: [facility]COPY ROOM 1 Note Status: Finalized [...] under direct vision. The Pediatric Colonoscope PCF-H190L [id number] was introduced through the anus and advanced [...] 10:29 AM Procedure Code(s): --- Professional --- 92575, Colonoscopy, flexible; with biopsy, single or multiple Diagnosis Code(s): --- Professional --- Z80.0, Family history of malignant neoplasm of digestive organs K64.8, Other hemorrhoids CPT copyright 2020 [employer]. All rights reserved. The codes documented in this report are preliminary and upon braille coder review may be revised to meet current compliance requirements. Recognized by the [employer] Gastrointestinal Endoscopy for promoting quality [...] Biopsy) 02/03/2023 12:36 PM CDT Narrative PATHOLOGY [facility] ([place]) - 02/04/2023 10:20 AM CDT EPIC results best viewed via link to PDF [facility] Department of Pathology [address] [place] [address] Note to Patients: This report may contain [...] Final Report Patient Name: ??ELIZABETH OATESHernan Address: ??[address] [place] [address], ??[place], [place] ??[address] Gender: ??F : ??1965 (Age: 57) Service: ??Gastro Location: ??[facility] Hospital #: ??[id number] Patient Type: ??[facility] Accession # ?[id number] Taken: ??02/03/2023 Received: ??02/03/2023 Accessioned: ??02/03/2023 Reported: [...] determined by the Surgical Pathology Department at [facility] as part of an ongoing clinical quality manager program and in compliance with federally mandated [...] characteristics determined by the Surgical Pathology Department [facility]. ??It has not been cleared or approved by the U. S. Food and Drug Administration. Note for decalcified specimens: This assay has not been validated on decalcified tissues. Results should be interpreted with caution given the possibility of false negativity on decalcified specimens us Elisa Abbott MD LAB PATHOLOGY ORDERABLES F inal Result PATHOLOGY [facility] ([place]) [address] [place] [address] * COLONOSCOPY (02/03/2023 10:29 AM CDT) Anatomical Region Laterality Modality Other Narrative Procedure Note Elisa Abbott MD - 02/03/2023 10:29 AM CDT Digestive [facility] Patient Name: Elizabeth Oates Procedure Date: 02/03/2023 10:29 AM Date of : 1965 Admit Type: Outpatient Age: 57 Gender: Female Attending MD: Elisa Abbott M.D. Room: [facility] 1 Note Status: Finalized [...] under direct vision. The Pediatric Colonoscope PCF-H190L [id number] was introducedthrough the anus and advanced to [...] 10:29 AM Procedure Code(s): --- Professional --- 99291, Colonoscopy, flexible; with biopsy, single or multiple Diagnosis Code(s): --- Professional --- Z80.0, Family history of malignant neoplasm of digestive organs K64.8, Other hemorrhoids CPT copyright 2020 [employer]. All rights reserved. The codes documented in this report are preliminary and upon braille coder reviewmay be revised to meet current compliance requirements. Recognized by the [employer] Gastrointestinal Endoscopy for promoting quality [...] 02/03/2023 documented in this encounter Care Teams Steel Handler Relationship Specialty Start Date End Date Tomasz Martinez PA [address] [place] [address] PCP - General 12/15/17 documented as of this encounter
--- OUTSIDE RECORDS SUMMARY | 2024-07-21 11:19 | XMS_ITS | Encounter Summary ---
Author Organization [facility] Healthcare Address [address] [place] [address] Care Team Providers Care Insurance Claims Analyst Name Role Phone No, Physician Primary Care Provider [phone] Encounter Details Date Type Department Care Team (Late st Contact Info) Description 02/23/2017 4:35 PM CDT - 02/23/2017 7:13 PM CDT Emergency [facility] Emergency Department 1 [place] [address] Kwabena Roberson Jr., MD [address] [place] [address] [place] [address] Discharge Disposition: Discharge to home or self care Social History Tobacco Use Types Packs/Day Years Used Date Smoking Tobacco: Never Assessed Comments Unknown Sex and Gender Information Value Date Recorded Sex Assigned at Not on file 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 RFP WRITER Gender Identity Not on file Sexual Orientation [...] CDT XR Foot Min 3 Views R ??[id number] ??Acc#: ??[id number] DATE OF EXAM: ??Feb 23 2017 ?? XR Foot Min 3 Views R ??[id number] HISTORY: Pain. ??Dorsal right foot pain. ??No [...] JED MEDLEY Requesting: ??BRAEDEN CESPEDES Requesting Fax: ??[phone] Attending Fax: ??-- Attending ID: ??[id number] Requesting ID: ??[id number] Report To 1 ID: ??[id number] Report To 1 Name: ??DR JED MEDLEY Report To 1 FAX: ??-- NextGen Order #: ?? Procedure Note Miscellaneous, Not In File / Provider, MD Abdoulaye - 02/23/2017 XR Foot Min 3 Views R [id number] Acc#: [id number] DATE OF EXAM: Feb 23 2017 XR Foot Min 3 Views R 04337 HISTORY: Pain. Dorsal right foot pain. No [...] CESPEDES Requesting Attending Fax: -- Attending ID: [id number] Requesting ID: [id number] Report To 1 ID: [id number] Report To 1 Name: DR JED MEDLEY Report To 1 FAX: -- NextGen Order #: Braeden Cespedes CONTRACT ASSOCIATE MANAGER IMG XR PROCEDURES Final Res ult documented in this encounter Visit Diagnoses Not on filedocumented in this encounter Care Teams Insurance Claims Analyst Relationship Specialty Start Date End Date No, Physician PCP - General 02/23/17 12/14/17 documented as of this encounter
--- OUTSIDE RECORDS SUMMARY | 2024-07-21 11:19 | XMS_ITS | Encounter Summary ---
Author Organization [facility] Healthcare Address [address] [place] [address] Care Team Providers Care Service Desk Manager Name Role Phone Unavailable Primary Care Provider [...] on file 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 TEAM TRUCK DRIVER Gender Identity Not on file Sexual Orientation Not on file documented as of this encounter Plan of Treatment Not on file documented as of this encounter Visit Diagnoses Diagnosis Suicidal ideation documented in this encounter
--- OUTSIDE RECORDS SUMMARY | 2024-07-21 11:19 | XMS_ITS | Encounter Summary ---
Author Organization [facility] Healthcare Address [address] [place] [address] Care Team Providers Care Roll Clamp Operator Name Role Phone Tomasz Martinez Primary Care Provider Reason for Visit * Reason Comments Foot Pain left foot pain Encounter Details Date Type Department Care Team (Late st Contact Info) Description 11/08/2020 10:21 AM CDT - 11/08/2020 11:54 AM CDT Emergency [facility] Emergency Department [address] [place] [address] [place] [address] [facility] [address] [place] [address] Left foot pain (Primary Dx) Discharge Disposition: Discharge to home or self care Social History Tobacco Use Types Packs/Day Years Used Date Smoking Tobacco: Former Smokeless Tobacco: Never Comments Unknown Sex and Gender Information Value Date Recorded Sex Assigned at Not on file 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 OUTREACH WORKER Gender Identity Not on file Sexual Orientation [...] through Care Everywhere. * Muscle Strain, Extremity (Panamanian) * RICE (Panamanian) documented in this encounter Medications at Time of Discharge ibuprofen (ADVIL,MOTRIN) 600 mg tabletIndication s:Anti-inflammat ory,Pain Take 1 tablet (600 mg total) by mouth every 6 (six) hours as needed for pain 30 tablet 11/08/2020 levothyroxine (SYNTHROID, LEVOTHROID) 50 mcg tablet Take 1 tablet (50 mcg total) by mouth slot shift manager before breakfast ondansetron (ZOFRAN) 4 mg [...] foot. Patient reports she was seen at [facility] 1 week ago, where she had an [...] feeling better. Instructed to follow up with header machine operator and PCP. Patient understands and agrees with [...] 11/08/2020 documented in this encounter Care Teams Roll Clamp Operator Relationship Specialty Start Date End Date Tomasz Martinez PA [address] [place] [address] PCP - General 12/15/17 documented as of this encounter
--- OUTSIDE RECORDS SUMMARY | 2024-07-21 11:19 | XMS_ITS | Encounter Summary ---
Author Organization [facility] Address [address] [place] [address] [address] [place] [address] Care Team Providers Care Traffic Recorder Name Role Phone Tomasz Martinez Primary Care Provider [phone] Reason for Referral * Diagnostic Imaging (Routine) - Closed Specialty Diagnoses / Procedures Referred By Carolina t Referred To Contact Diagnoses Multinodular goiter (nontoxic) Procedures US Thyroid Elliot Mckeon DO Phone: tel: fax: External Order Referral ID Status Reason Start Date Expiration Date Visits Re quested Visits Authorized [id number] Closed 12/06/2018 06/16/2020 1 1 Reason for Visit * Reason Comments Thyroid Problem Encounter Details Date Type Department Care Team (Late st Contact Info) Description 11/29/2018 2:40 PM CDT Office Visit [facility] - [address] [place] [address] Elliot Mckeon DO [address] [place] [address] Multinodular goiter (nontoxic) (Primary Dx); Esophageal dysphagia; Gastroesophageal reflux disease without esophagitis Social History Tobacco Use Types Packs/Day Years Used Date Smoking Tobacco: Never Smokeless Tobacco: Never Comments Unknown Sex and Gender Information Value Date Recorded Sex Assigned at Not on file 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 APPLE CHECKER Gender Identity Not on file Sexual Orientation [...] (50 mcg total) by mouth early childhood worker before breakfast added in this encounter Care Teams Traffic Recorder Relationship Specialty Start Date End Date Tomasz Martinez PA [address] [place] [address] PCP - General 12/15/17 documented as of this encounter
--- OUTSIDE RECORDS SUMMARY | 2024-07-21 11:19 | XMS_ITS | Encounter Summary ---
Author Organization [facility] Address [address] [place] [address] [address] [place] [address] Care Team Providers Care Agricultural Production Engineer Name Role Phone Tomasz Martinez Primary Care Provider [phone] Reason for Visit * Reason Onset Date Comments Vomiting 12/01/2018 Encounter Details Date Type Department Care Team (Late st Contact Info) Description 12/01/2018 Telephone [facility] ENT Specialists - [address] [place] [address] Micky Vu RN Vomiting Social History Tobacco Use Types Packs/Day Years Used Date Smoking Tobacco: Never Smokeless Tobacco: Never Comments Unknown Sex and Gender Information Value Date Recorded Sex Assigned at Not on file 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 PAPERHANGER CONTRACTOR Gender Identity Not on file Sexual [...] on filedocumented in this encounter Care Teams Agricultural Production Engineer Relationship Specialty Start Date End Date Tomasz Martinez PA [address] [place] [address] PCP - General 12/15/17 documented as of this encounter
--- OUTSIDE RECORDS SUMMARY | 2024-07-21 11:19 | XMS_ITS | Encounter Summary ---
Author Organization [facility] Healthcare Address [address] [place] [address] Care Team Providers Care Firearms Assembly Supervisor Name Role Phone Tomasz Martinez Primary Care Provider [phone] Encounter Details Date Type Department Care Team (Late st Contact Info) Description 12/15/2017 5:57 PM CDT - 12/15/2017 11:59 PM CDT Hospital Encounter [facility] Center [address] [place] [address] Tomasz Martinez PA [address] [place] [address] Miguel Ángel Klein MD [address] [facility] [address] W[address] [address] Pain in right finger(s) Discharge Disposition: Discharge to home or self care Social History Tobacco Use Types Packs/Day Years Used Date Smoking Tobacco: Never Assessed Comments Unknown Sex and Gender Information Value Date Recorded Sex Assigned at Not on file 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 ELECTRONICS MECHANIC Gender Identity Not on file Sexual Orientation [...] finger(s) documented in this encounter Care Teams Firearms Assembly Supervisor Relationship Specialty Start Date End Date Tomasz Martinez PA [address] [place] [address] PCP - General 12/15/17 documented as of this encounter
--- OUTSIDE RECORDS SUMMARY | 2024-07-21 11:19 | XMS_ITS | Encounter Summary ---
Author Organization [facility] Healthcare Address [address] [place] [address] Care Team Providers Care Product Development Ecologist Name Role Phone Unavailable Primary Care Provider Unavailabl e Encounter Details Date Type Department Care Team (Late st Contact Info) Description 03/30/2014 10:10 AM CDT - 03/30/2014 11:39 AM CDT Hospital Encounter [facility] Bipin Suh MD [address] [place] [address] Acute upper respiratory infection; Viral infection in conditions classified elsewhere and of unspecified site Social History Tobacco Use Types Packs/Day Years Used Date Smoking Tobacco: Never Assessed Comments Unknown Sex and Gender Information Value Date Recorded Sex Assigned at Not on file 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
--- OUTSIDE RECORDS SUMMARY | 2024-07-21 11:19 | XMS_ITS | Encounter Summary ---
Author Organization [facility] Healthcare Address [address] [place] [address] Care Team Providers Care Slabber Name Role Phone Tomasz Martinez Primary Care Provider [phone] Encounter Details Date Type Department Care Team (Late st Contact Info) Description 01/18/2018 12:08 PM CDT Anesthesia Event [facility] [address] [place] [address] [place] [address] [id number] Anesthesia Record Procedure Summary Procedure Name Responsible [...] Technique: Anatomical landmarks; Inserted by: Esthela JOHNSON ([facility]) ; Insertion Attempts: 1; Patient Tolerance: [...] on file 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 Informed Consent: Discussed plan with DIRECTOR ENERGY. Anesthesia plan and risks discussed with patient. [...] CDT documented in this encounter Care Teams Slabber Relationship Specialty Start Date End Date Tomasz Martinez PA [address] [place] [address] PCP - General 12/15/17 documented as of this encounter
--- OUTSIDE RECORDS SUMMARY | 2024-07-21 11:19 | XMS_ITS | Encounter Summary ---
Author Organization [facility] Address [address] [facility] [address] [place] [address] Care Team Providers Care Pile Driver Name Role Phone Tomasz Martinez Primary Care Provider Reason for Visit * Reason Onset Date Comments Schedule Colonoscopy 01/07/2023 Encounter Details Date Type Department Care Team (Late st Contact Info) Description 01/07/[address] 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
--- OUTSIDE RECORDS SUMMARY | 2024-07-21 11:19 | XMS_ITS | Encounter Summary ---
Author Organization [facility] Healthcare Address [address] [place] [address] Care Team Providers Care Smoking Tobacco Cutter Operator Name Role Phone Tomasz Martinez Primary Care Provider [phone] Reason for Referral * Diagnostic Imaging (Emergency) - Closed Specialty Diagnoses / Procedures Referred By Contac t Referred To Contact Diagnoses Contusion and laceration, cerebral with 1-24 hr loss of consciousness (CMS/HCC) (HCC) Procedures XR Foot Right 3 or More Views Jordy Ayala MD [address] [place] [address] Phone: tel: fax: [address] [phone] Referral ID Status Reason Start Date Expiration Date Visits Re quested Visits Authorized [id number] Closed 02/01/2020 08/12/2021 1 1 Reason for Visit * Diagnostic Imaging (Emergency) - Closed Specialty Diagnoses / Procedures Referred By Contac t Referred To Contact Diagnoses Contusion and laceration, cerebral with 1-24 hr loss of consciousness (CMS/HCC) (HCC) Procedures XR Foot Right 3 or More Views Jordy Ayala MD [address] [place] [address] Phone: tel: fax: [address] [phone] Referral ID Status Reason Start Date Expiration Date Visits Re quested Visits Authorized [id number] Closed 02/01/2020 08/12/2021 1 1 Encounter Details Date Type Department Care Team (Late st Contact Info) Description 02/01/2020 10:45 AM CDT - 02/01/2020 11:59 PM CDT Hospital Encounter [facility] [address] [place] [address] Jordy Ayala MD [address] [place] [id number] Contusion and laceration, cerebral with 1-24 hr loss of consciousness (CMS/HCC) Discharge Disposition: Discharge to home or self care Social History Tobacco Use Types Packs/Day Years Used Date Smoking Tobacco: Never Smokeless Tobacco: Never Comments Unknown Sex and Gender Information Value Date Recorded Sex Assigned at Not on file 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
--- OUTSIDE RECORDS SUMMARY | 2024-07-21 11:19 | XMS_ITS | Encounter Summary ---
Author Organization [facility] Medical Group Address [address] [place] [address] [address] [place] [address] Care Team Providers Care Engineer Steam Name Role Phone Tomasz Martinez Primary Care Provider [phone] Reason for Visit * Reason Onset Date Comments Scheduling Testing/Treatment 12/07/2018 Encounter Details Date Type Department Care Team (Late st Contact Info) Description 12/07/2018 Telephone [facility] Medical [facility] [address] [place] [address] Lilliana Quinn MA Scheduling Testing/Treatment Social History Tobacco Use Types Packs/Day Years Used Date Smoking Tobacco: Never Smokeless Tobacco: Never Comments Unknown Sex and Gender Information Value Date Recorded Sex Assigned at Not on file 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 Message left. I informed her that I faxed the orders to [facility] for her US and TSH level. Pt was informed to contact them to schedule appt. Phone number of [phone] for the imaging center was left for [...] on filedocumented in this encounter Care Teams Engineer Steam Relationship Specialty Start Date End Date Tomasz Martinez PA [address] [place] [address] PCP - General 12/15/17 documented as of this encounter
--- OUTSIDE RECORDS SUMMARY | 2024-07-21 11:19 | XMS_ITS | Encounter Summary ---
Author Organization [facility] Healthcare Address [address] [place] [address] Care Team Providers Care Trailer Chief Name Role Phone Unavailable Primary Care Provider Unavailabl e Encounter Details Date Type Department Care Team (Late st Contact Info) Description 09/18/2014 5:27 PM SECURITY SOLUTIONS ENGINEER - 09/18/2014 8:55 PM SECURITY SOLUTIONS ENGINEER Hospital Encounter [facility] Aminah Delgado Benign paroxysmal positional vertigo Social History Tobacco Use Types Packs/Day Years Used Date Smoking Tobacco: Never Assessed Comments Unknown Sex and Gender Information Value Date Recorded Sex Assigned at Not on file 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 ENGINEER Gender Identity Not on file Sexual Orientation Not on file documented as of this encounter Plan of Treatment Not on file documented as of this encounter Procedures Procedure Name Priority Date/Time Associated Diagnosis Comments CT HEAD WO CONTRAST Routine 09/18/2014 7 :44 PM SECURITY SOLUTIONS ENGINEER SERUM BASIC METABOLIC PANEL Routine 09/18/2014 7:32 PM SECURITY SOLUTIONS ENGINEER BLOOD WBC CELL MORPHOLOGIC EXAM, AUTO Routine 09/18/2014 7:32 PM SECURITY SOLUTIONS ENGINEER BLOOD CELL COUNT (CBC) Routine 09/18/2014 7:32 PM SECURITY SOLUTIONS ENGINEER DISCHARGE LABORATORY CUMULATIVE REPORT Routine 09/18/2014 12:00 AM SECURITY SOLUTIONS ENGINEER documented in this encounter Results * CT Head WO Contrast (09/18/2014 7:44 PM SECURITY SOLUTIONS ENGINEER) Anatomical Region Laterality Modality Head and Neck N/A Computed Tomogra phy 09/18/2014 7:44 PM SECURITY SOLUTIONS ENGINEER Narrative 09/19/2014 10:49 AM [place] ?[id number] ??Acc#: ??[id number] DATE OF EXAM: ??Sep 18 2014 CLINICAL [...] Requesting ID: ?? Report To 1 ID: ??[id number] Report To 1 Name: ??AMINAH HOYT Report To 1 FAX: ??-- NextGen Order #: Procedure Note Provider, MD Abdoulaye - 11/26/[place] [id number] Acc#: [id number] DATE OF EXAM: Sep 18 2014 CLINICAL [...] ID: Requesting ID: Report To 1 ID: [id number] Report To 1 Name: HOYTOHI Report To 1 FAX: -- NextGen Order #: us Historical Provider MD GREGG CT PROCEDURES Final R esult * (ABNORMAL) Serum basic metabolic panel (09/18/2014 7:32 PM SECURITY SOLUTIONS ENGINEER) BUN 6.4(L) 8.0 - 25.0 mg/dl HISTORICAL [...] mg/dl HISTORICAL RESULTS Serum 09/18/2014 7:32 PM SECURITY SOLUTIONS ENGINEER Aminah [place]t LAB BLOOD ORDERABLES Final Resul t HISTORICAL RESULTS * (ABNORMAL) Blood cell count (CBC) (09/18/2014 7:32 PM SECURITY SOLUTIONS ENGINEER) WBC 8.1 4.0 - 10.5 K/cumm HISTORICAL [...] RESULTS Blood specimen (specimen) 09/18/2014 7:32 PM SECURITY SOLUTIONS ENGINEER Aminah Andres [place] LAB BLOOD ORDERABLES Final Resul t HISTORICAL RESULTS * (ABNORMAL) Blood WBC cell morphologic exam, auto (09/18/2014 7:32 PM SECURITY SOLUTIONS ENGINEER) Lymphocytes 12.2(L) 25.0 - 33.0 % HISTORICAL [...] RESULTS Blood specimen (specimen) 09/18/2014 7:32 PM SECURITY SOLUTIONS ENGINEER Aminah Andres [place] LAB BLOOD ORDERABLES Final Resul t HISTORICAL RESULTS * Discharge Laboratory Cumulative Report (09/18/2014 12:00 AM SECURITY SOLUTIONS ENGINEER) 09/18/2014 Narrative HISTORICAL RESULTS - 09/19/2014 12:36 AM SECURITY SOLUTIONS ENGINEER Patient No: [id number] ? [facility] Patient Name: ELIZABETH SOTO ? [facility] Healthcare Age: 49 YRS ?: 1965 ?Sex:F ?[address] )[phone] ?? Adm Dt: 09/18/2014 ?[place], [place] ??[id number] Created: 09/19/2014 ??0036 ?? Pt. Type: E [...] ?? CONTINUED ?Page: ?? 1 Patient No: [id number] ? [facility] Patient Name: ELIZABETH SOTO ? [facility] Age: 49 YRS ?: 1965 ?Sex:F ?[address] )[phone] ?? Adm Dt: 09/18/2014 ?[place], [place] ??[id number] Created: 09/19/2014 ??0036 ?? Pt. Type: E [...]
--- OUTSIDE RECORDS SUMMARY | 2024-07-21 11:19 | XMS_ITS | Encounter Summary ---
Author Organization [facility] Healthcare Address [address] [place] [address] Care Team Providers Care Cattle And Wheat Farmer Name Role Phone Unavailable Primary Care Provider Unavailabl e Encounter Details Date Type Department Care Team (Late st Contact Info) Description 10/07/2016 5:32 PM LIP CUTTER - 10/07/2016 7:31 PM LIP CUTTER Emergency [facility] Emergency Department [address] [place] [address] Galilea Roberson Jr., MD [address] [place] [address] [place] [address] Discharge Disposition: Discharge to home or self care Social History Tobacco Use Types Packs/Day Years Used Date Smoking Tobacco: Never Assessed Comments Unknown Sex and Gender Information Value Date Recorded Sex Assigned at Not on file 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 Gender Identity Not on file Sexual Orientation Not on file documented as of this encounter Discharge Disposition Disposition Code Departure Means Destination Discharge to home or self care documented in this encounter Plan of Treatment Not on file documented as of this encounter Procedures Procedure Name Priority Date/Time Associated Diagnosis Comments XR CHEST PA LATERAL 2 VIEWS Routine 10/07/2016 7:12 PM LIP CUTTER documented in this encounter Results * XR Chest Pa Lateral 2 Vw (10/07/2016 7:12 PM LIP CUTTER) Anatomical Region Laterality Modality Body, Chest N/A Radiographic Annamarie ging 10/07/2016 7:12 PM LIP CUTTER Narrative 10/08/2016 10:52 AM LIP CUTTER XR Chest 2 Views ?[id number] ??Acc#: ??[id number] DATE OF EXAM: ??Mar ??2016 CLINICAL HISTORY: [...] Fax: ??-- Attending Fax: ??-- Attending ID: ??[id number] Requesting ID: ??[id number] Report To 1 ID: ??[id number] Report To 1 Name: ??GALILEA ROBERSON Report To 1 FAX: ??-- NextGen Order #: Procedure Note Provider, MD Abdoulaye - 12/09/2016 XR Chest 2 Views [id number] Acc#: [id number] DATE OF EXAM: Oct 07 2016 CLINICAL [...] Fax: -- Attending Fax: -- Attending ID: [id number] Requesting ID: [id number] Report To 1 ID: [id number] Report To 1 Name: GALILEA ROBERSON Report To 1 FAX: -- NextGen Order #: Historical Provider MD GREGG XR PROCEDURES Final R esult documented in this encounter Visit Diagnoses Not on filedocumented in this encounter
--- OUTSIDE RECORDS SUMMARY | 2024-07-21 11:19 | XMS_ITS | Encounter Summary ---
Author Organization [facility] Healthcare Address [address] [place] [address] Care Team Providers Care Flask Handler Name Role Phone Unavailable Primary Care Provider Unavailabl e Encounter Details Date Type Department Care Team (Late st Contact Info) Description 04/12/2016 10:13 PM CDT - 04/13/2016 12:24 AM CDT Hospital Encounter [facility] CLINCON[facility]ith Joiner MD [facility] [place] [address] Urinary tract infection; Major depressive disorder, single episode (CMS/[facility]) Social History Tobacco Use Types Packs/Day Years Used Date Smoking Tobacco: Never Assessed Comments Unknown Sex and Gender Information Value Date Recorded Sex Assigned at Not on file 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 Gender Identity Not on file Sexual Orientation [...] ORDERABLES Phyllis andres Result Performing Organization Address [facility] de Phone Number CDR HISTORICAL RESULTS * Serum lipase (04/12/2016 11:00 PM CDT) Lip 20 10 - 70 Units/L CDR HISTORICAL RESULTS Serum 04/12/2016 11:0 0 PM CDT Result [facility] Historical Provider LAB BLOOD ORDERABLES Phyllis andres Result Performing Organization Address [facility] de Phone Number CDR HISTORICAL RESULTS [...] ORDERABLES Phyllis l Result Performing Organization Address City/[facility] de Phone Number CDR HISTORICAL RESULTS * Serum amylase (04/12/2016 11:00 PM CDT) [place], [address] 55 30 - 100 Units/L CDR HISTORICAL RESULTS Serum 04/12/2016 11:0 0 PM CDT Historical Provider LAB BLOOD ORDERABLES Phyllis andres Result Performing Organization Address [facility] de Phone Number CDR HISTORICAL RESULTS [...] ORDERABLES Phyllis andres Result Performing Organization Address City/[facility] Co de Phone Number CDR HISTORICAL RESULTS * Serum estimated glomerular filtration rate (04/12/2016 11:00 PM CDT) eGFR >60 ml/min/1.7 3 m2 CDR HISTORICAL RESULTS Comment: Interpretation of Estimated GFR (eGFR): Normal ?>/= 60 mL/min/1.73m2 Possible Chronic Kidney Disease ??15 - 59 mL/min/1.73m2 Possible Kidney Failure ?< 15 ??mL/min/1.73m2 If -Yemeni multiply value by 1.16. ??Estimated glomerular filtration [...] ORDERABLES Phyllis l Result Performing Organization Address [facility] Co de Phone Number CDR HISTORICAL [...] ORDERABLES Phyllis l Result Performing Organization Address [facility] de Phone Number CDR HISTORICAL RESULTS * Urine (aerobic) culture (04/12/2016 10:40 PM CDT) Organism ECOL^[id number] 3 CDR HISTORICAL RESULTS Urine (Unknown) 04/12/2016 1 0:40 PM CDT Impressions CDR HISTORICAL RESULTS - 04/15/2016 1:55 PM CDT Test performed at [facility], [address] [facility], [place]., [address] Narrative CDR HISTORICAL RESULTS - 04/15/2016 1:55 [...] L ORDERABLES Final Result Performing Organization Address City/[facility]/ZIP Co de Phone Number CDR HISTORICAL RESULTS documented in this encounter Visit Diagnoses Diagnosis Urinary tract infection Urinary tract infection, site not specified Major depressive disorder, single episode Major depressive disorder, single episode, unspecified documented in this encounter
--- OUTSIDE RECORDS SUMMARY | 2024-07-21 11:19 | XMS_ITS | Encounter Summary ---
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 CAPSULE Note Status: Finalized Patient Profile: 52 [...] under direct vision. The Pediatric Colonoscope PCF-H190L [id number] was introduced through the anus and advanced [...] 11:57 AM Procedure Code(s): --- Professional --- 27886, Colonoscopy, flexible; diagnostic, including collection of specimen(s) by brushing or washing, when performed (separate procedure) Diagnosis Code(s): --- Professional --- Z80.0, Family history of malignant neoplasm of digestive organs K64.9, Unspecified hemorrhoids CPT copyright 2017 [employer]. All rights reserved. The codes documented in this report are preliminary and upon medical records coder review may be revised to meet current compliance requirements. Recognized by the [employer] for promoting quality [...] Abbott MD - 01/18/2018 11:57 AM CDT [facility] Patient Name: Elizabeth Oates Procedure Date: 01/18/2018 11:57 AM Date of : 1965 Admit Type: Outpatient Age: 52 Gender: Female Attending MD: Elisa Abbott MD Room: [facility] ENDOSCOPY CAPSULE Note Status: Finalized Patient [...] passed under direct vision.The Pediatric Colonoscope PCF-H190L [id number] was introduced through the anus and advanced [...] 11:57 AM Procedure Code(s): --- Professional --- 11818, Colonoscopy, flexible; diagnostic, including collection of specimen(s) by brushing or washing, when performed (separateprocedure) Diagnosis Code(s): --- Professional --- Z80.0, Family history of malignant neoplasm of digestive organs K64.9, Unspecified hemorrhoids CPT copyright 2017 [employer]. All rights reserved. The codes documented in this report are preliminary and upon medical records coder reviewmay be revised to meet current compliance requirements. Recognized by the [employer] for promoting quality [...] - ALIYAH CE Final Result JENNIFER RODRIGUEZ (BOND) 1 [facility] Department [place] [address] documented in this encounter Visit Diagnoses Not [...] Recovery (GI), Indications: Nausea and Vomiting 1201 ([facility] Hold - Pro vider: Automatic Transfer Provider - Reason: Patient not available)1521 ([facility] Unhold - Provider: User Epic) sodium chloride 0.9% flush 0.5-20 mL 0.5-20 mL, intra-catheter, As needed, line care, Starting on Wed01/18/18 at 1116, Pre-Procedure (GI), Flush volume based on line type and size. Flush before and after each use. , Indications: Flushing 1201 ([facility] Hold - Pro vider: Automatic Transfer Provider - Reason: Patient not available)1521 ([facility] Unhold - Provider: User Epic) [...] 01/18/2018 documented in this encounter Care Teams Aluminum Can Collector Relationship Specialty Start Date End Date Tomasz Martinez PA [address] [place] [address] PCP - General 12/15/17 documented as of this encounter
--- OUTSIDE RECORDS SUMMARY | 2024-07-21 11:19 | XMS_ITS | Encounter Summary ---
Author Organization [facility] Healthcare Address [address] [place] [address] Care Team Providers Care [facility] Attendant Name Role Phone Unavailable Primary Care Provider Unavailabl e Encounter Details Date Type Department Care Team (Late st Contact Info) Description 09/23/2015 2:46 PM WATER POLLUTION SPECIALIST - 09/23/2015 4:56 PM WATER POLLUTION SPECIALIST Hospital Encounter [facility] Raul Wang MD 1 [facility] [address] [place] [address] Medial epicondylitis of left elbow; Enthesopathy Social History Tobacco Use Types Packs/Day Years Used Date Smoking Tobacco: Never Assessed Comments Unknown Sex and Gender Information Value Date Recorded Sex Assigned at Not on file 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
--- OUTSIDE RECORDS SUMMARY | 2024-07-21 11:19 | XMS_ITS | Encounter Summary ---
Author Organization [facility] Healthcare Address [address] [place] [address] Care Team Providers Care Dental Secretary Name Role Phone Tomasz Martinez Primary Care Provider [phone] Encounter Details Date Type Department Care Team (Latest Contact Info) Description 01/18/2018 10:11 AM CDT - 01/18/2018 1:20 PM CDT Hospital Encounter [facility] [address] [place] [address] Elisa Abbott MD [address] [place] [id number] Discharge Disposition: Discharge to home or self care Social History Tobacco Use Types Packs/Day Years Used Date Smoking Tobacco: Never Smokeless Tobacco: Never Comments Unknown Sex and Gender Information Value Date Recorded Sex Assigned at Not on file 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 The Pediatric Colonoscope PCF-H190L [id number] was introduced through the anus and advanced [...] 11:57 AM Procedure Code(s): --- Professional --- 42980, Colonoscopy, flexible; diagnostic, including collection of specimen(s) by brushing or washing, when performed (separate procedure) Diagnosis Code(s): --- Professional --- Z80.0, Family history of malignant neoplasm of digestive organs K64.9, Unspecified hemorrhoids CPT copyright 2017 [employer]. All rights reserved. The codes documented in this report are preliminary and upon pension manager review may be revised to meet current compliance requirements. Recognized by the [employer] for promoting quality [...] MD - 01/18/2018 11:57 AM CDT [facility] Patient Name: Elizabeth Oates Procedure Date: 01/18/2018 11:57 AM Date of : 1965 Admit Type: Outpatient Age: 52 Gender: Female Attending MD: Elisa Abbott MD Room: [facility] ENDOSCOPY CAPSULE Note Status: Finalized Patient [...] passed under direct vision.The Pediatric Colonoscope PCF-H190L [id number] was introduced through the anus and advanced [...] 11:57 AM Procedure Code(s): --- Professional --- 78015, Colonoscopy, flexible; diagnostic, including collection of specimen(s) by brushing or washing, when performed (separateprocedure) Diagnosis Code(s): --- Professional --- Z80.0, Family history of malignant neoplasm of digestive organs K64.9, Unspecified hemorrhoids CPT copyright 2017 [employer]. All rights reserved. The codes documented in this report are preliminary and upon pension manager reviewmay be revised to meet current compliance requirements. Recognized by the [employer] for promoting quality [...] - ALIYAH CE Final Result JENNIFER RODRIGUEZ ([place]) 1 [facility] Department [place] [address] documented in this encounter Visit Diagnoses Not [...] Recovery (GI), Indications: Nausea and Vomiting 1201 ([facility] Hold - Pro vider: Automatic Transfer Provider - Reason: Patient not available)1521 ([facility] Unhold - Provider: User Epic) sodium chloride 0.9% flush 0.5-20 mL 0.5-20 mL, intra-catheter, As needed, line care, Starting on Wed01/18/18 at 1116, Pre-Procedure (GI), Flush volume based on line type and size. Flush before and after each use. , Indications: Flushing 1201 ([facility] Hold - Pro vider: Automatic Transfer Provider - Reason: Patient not available)1521 ([facility] Unhold - Provider: User Epic) [...] 01/18/2018 documented in this encounter Care Teams Dental Secretary Relationship Specialty Start Date End Date Tomasz Martinez PA [address] [place] [address] PCP - General 12/15/17 documented as of this encounter
--- OUTSIDE RECORDS SUMMARY | 2024-07-21 11:19 | XMS_ITS | Encounter Summary ---
Author Organization [facility] Healthcare Address [address] [place] [address] Care Team Providers Care Salon Coordinator Name Role Phone Tomasz Martinez Primary Care Provider [phone] Reason for Visit * Auth/Cert (Routine) Specialty Diagnoses / Procedures Referred By Carolina t Referred To Contact Diagnoses Family history of colon cancer Family history of colon cancer [Z80.0] Procedures TX COLONOSCOPY FLX DX W/COLLJ SPEC WHEN PFRMD COLONOSCOPY Referral ID Status Reason Start Date Expiration Date Visits Re quested Visits Authorized [id number] 1 1 Encounter Details Date Type Department Care Team (Late st Contact Info) Description 02/03/2023 1:10 PM CDT - 02/03/2023 1:40 PM CDT Surgery [address] [address] Elisa Abbott MD [address] [place] [id number] COLON BIOPSY Surgery Details Date/Time Status Location OR Service Patient Class Case Class Case Type Trauma Case? 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 Room: [facility] ENDOSCOPY ROOM 1 Note Status: [...] under direct vision. The Pediatric Colonoscope PCF-H190L [id number] was introduced through the anus and advanced [...] 10:29 AM Procedure Code(s): --- Professional --- 83939, Colonoscopy, flexible; with biopsy, single or multiple Diagnosis Code(s): --- Professional --- Z80.0, Family history of malignant neoplasm of digestive organs K64.8, Other hemorrhoids CPT copyright 2020 [employer]. All rights reserved. The codes documented in this report are preliminary and upon cad design engineer review may be revised to meet current compliance requirements. Recognized by the [employer] for promoting quality [...] Biopsy) 02/03/2023 12:36 PM CDT Narrative PATHOLOGY [facility] - 02/04/2023 10:20 AM CDT EPIC results best viewed via link to PDF [facility] Department of Pathology [address] [place] [address] Note to Patients: This report may contain [...] Final Report Patient Name: ??ELIZABETH OATES Address: ??[address] [place] [address], ??[place], [place] ??[address] Gender: ??F : ??1965 (Age: 57) Service: ??Gastro Location: ??[facility] Hospital #: ??[id number] Patient Type: ??[facility] Accession # ?[id number] Taken: ??02/03/2023 Received: ??02/03/2023 Accessioned: ??02/03/2023 Reported: [...] determined by the Surgical Pathology Department at [facility] as part of an ongoing manufacturing quality technician program and in compliance with federally [...] characteristics determined by the Surgical Pathology Department [facility]. ??It has not been cleared or approved by the U. S. Food and Drug Administration. Note for decalcified specimens: This assay has not been validated on decalcified tissues. Results should be interpreted with caution given the possibility of false negativity on decalcified specimens us Elisa Abbott MD LAB PATHOLOGY ORDERABLES F inal Result PATHOLOGY [facility] [address] [place] [address] * COLONOSCOPY (02/03/2023 10:29 AM CDT) Anatomical Region Laterality Modality Other Narrative Procedure Note Elisa Abbott MD - 02/03/2023 10:29 AM CDT [facility] Patient Name: Elizabeth Oates Procedure Date: 02/03/2023 10:29 AM Date of : 1965 Admit Type: Outpatient Age: 57 Gender: Female Attending MD: Elisa Abbott M.D. Room: [facility] END[facility]COPY ROOM 1 Note Status: [...] under direct vision. The Pediatric Colonoscope PCF-H190L [id number] was introducedthrough the anus and advanced to [...] 10:29 AM Procedure Code(s): --- Professional --- 88738, Colonoscopy, flexible; with biopsy, single or multiple Diagnosis Code(s): --- Professional --- Z80.0, Family history of malignant neoplasm of digestive organs K64.8, Other hemorrhoids CPT copyright 2020 [employer]. All rights reserved. The codes documented in this report are preliminary and upon cad design engineer reviewmay be revised to meet current compliance requirements. Recognized by the [employer] for promoting quality [...] 02/03/2023 documented in this encounter Care Teams Salon Coordinator Relationship Specialty Start Date End Date Tomasz Martinez PA [address] [place] [address] PCP - General 12/15/17 documented as of this encounter
--- OUTSIDE RECORDS SUMMARY | 2024-07-21 11:19 | XMS_ITS | Encounter Summary ---
Author Organization [facility] Healthcare Address [address] [place] [address] Care Team Providers Care Seasoning Sprayer Name Role Phone Tomasz Martinez Primary Care Provider [phone] Reason for Visit * Reason Comments Shortness of Breath Encounter Details Date Type Department Care Team (Late st Contact Info) Description 01/23/2023 8:11 PM CDT - 01/23/2023 10:42 PM CDT Emergency [facility] Emergency Department [address] [place] [address] Murali Gonzalez MD [address] [facility] [address] [place] [address] Exposure to chemical inhalation (Primary Dx) Discharge Disposition: Discharge to home or self care Social History Tobacco Use Types Packs/Day Years Used Date Smoking Tobacco: Former Smokeless Tobacco: Never Comments Unknown Sex and Gender Information Value Date Recorded Sex Assigned at Not on file 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 * Inhalation, Chemical (Mauritian) documented in this encounter Medications at Time [...] tablet (50 mcg total) by mouth early education teacher before breakfast ondansetron (ZOFRAN) 4 mg tablet [...] BLOOD ORDERABLES Final Re sult [facility] ([place]) [address] [facility] Department [place] [address] * Differential, auto (01/23/2023 8:51 PM CDT) [...] MD LAB BLOOD ORDERABLES Final Re sult [facility] ([place]) [address] [facility] Department [place] [address] * Comprehensive metabolic panel (01/23/2023 8:51 PM CDT) Sodium 139 135 - 145 mmol/L [facility] ([place]) Potassium, pl 3.3 3.3 - 4.9 mmol/L [facility] ([place]) Chloride 103 97 - 110 mmol/L [facility] ([place]) CO2 25 22 - 32 mmol/L [facility] ([place]) Anion gap 11 2 - 15 mmol/L [facility] ([place]) BUN 9 6 - 25 mg/dL [facility] ([place]) Creatinine 0.64 0.60 - 1.10 mg/dL [facility] ([place]) Glucose 94 70 - 199 mg/dL [facility] ([place]) Comment: Interpretive Data Fasting [...] Final Re sult [facility] ([place]) 1 [facility] Department [place] [address] * (ABNORMAL) CBC with auto differential (01/23/2023 [...] 45.8 35.7 - 48.1 fL [facility] ([place]) NRBC abs 0.00 0.00 - 0.01 K/cumm [facility]) Blood 01/23/2023 8:51 PM CDT 01/23/2023 8:56 PM CDT us Murali Gonzalez MD LAB BLOOD ORDERABLES Final Re sult [facility] ([place]) [address] [facility] Department [place] [address] * XR Chest Pa Lateral 2 Vw [...] PM T: ??01/23/2023 9:33 PM Report ID: [id number] Reading Location: ??[id number] Procedure Note Penny Turner MD - 01/23/2023 [...] Ramona Turner M.D. LC: [place] Report ID: [id number] Reading Location: [id number] us Murali Gonzalez MD IMG XR PROCEDURES Final Resul t documented in this encounter Visit Diagnoses Diagnosis Exposure to chemical inhalation- Primary documented in this encounter Care Teams Seasoning Sprayer Relationship Specialty Start Date End Date Tomasz Martinez PA [address] [place] [address] PCP - General 12/15/17 documented as of this encounter
--- OUTSIDE RECORDS SUMMARY | 2024-07-21 11:20 | XMS_ITS | Encounter Summary ---
Author Organization [facility] Healthcare Address [address] [place] [address] Care Team Providers Care Plastic Molder Name Role Phone Unavailable Primary Care Provider Unavailabl e Encounter Details Date Type Department Care Team (Late st Contact Info) Description 10/09/2008 10:37 AM CDT - 10/09/2008 11:20 AM CDT Hospital Encounter [facility] Bipin Suh MD [address] [facility] [address] [address] [place] [address] Open wound of finger; Accident caused by other specified cutting and piercing instruments or objects; Unspecified place of occurrence Social History Tobacco Use Types Packs/Day Years Used Date Smoking Tobacco: Never Assessed Comments Unknown Sex and Gender Information Value Date Recorded Sex Assigned at Not on file 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
--- OUTSIDE RECORDS SUMMARY | 2024-07-21 11:20 | XMS_ITS | Encounter Summary ---
Author Organization [facility] Healthcare Address [address] [place] [address] Care Team Providers Care Librarian Head Name Role Phone Unavailable Primary Care Provider Unavailabl e Encounter Details Date Type Department Care Team (Late st Contact Info) Description 06/12/2012 11:05 AM FRAMING CONSULTANT - 06/12/2012 12:00 PM FRAMING CONSULTANT Hospital Encounter [facility] Annemarie Guajardo MD [address] [place] [address] Acute sinusitis; Hypothyroidism Social History Tobacco Use Types Packs/Day Years Used Date Smoking Tobacco: Never Assessed Comments Unknown Sex and Gender Information Value Date Recorded Sex Assigned at Not on file 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 FRAMING CONSULTANT Gender Identity Not on file Sexual Orientation Not on file documented as of this encounter Plan of Treatment Not on file documented as of this encounter Visit Diagnoses Diagnosis Acute sinusitis Acute sinusitis, unspecified Hypothyroidism Unspecified hypothyroidism documented in this encounter
--- OUTSIDE RECORDS SUMMARY | 2024-07-21 11:20 | XMS_ITS | Encounter Summary ---
Author Organization [facility] Healthcare Address [address] [place] [address] Care Team Providers Care Food Mixer Assembler Name Role Phone Unavailable Primary Care Provider Unavailabl e Encounter Details Date Type Department Care Team (Late st Contact Info) Description 03/31/2009 11:30 AM CDT - 03/31/2009 12:32 PM CDT Hospital Encounter [facility] Bipin Suh MD [address] [place] [address] Calcaneal spur Social History Tobacco Use Types Packs/Day Years Used Date Smoking Tobacco: Never Assessed Comments Unknown Sex and Gender Information Value Date Recorded Sex Assigned at Not on file 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 DIAMOND MOUNTER Gender Identity Not on file Sexual Orientation Not on file documented as of this encounter Plan of Treatment Not on file documented as of this encounter Visit Diagnoses Diagnosis Calcaneal spur documented in this encounter
--- OUTSIDE RECORDS SUMMARY | 2024-07-21 11:20 | XMS_ITS | Encounter Summary ---
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
--- OUTSIDE RECORDS SUMMARY | 2024-07-21 11:20 | XMS_ITS | Encounter Summary ---
Author Organization [facility] Healthcare Address [address] [place] [address] Care Team Providers Care Fixture Designer Name Role Phone Unavailable Primary Care Provider Unavailabl e Encounter Details Date Type Department Care Team (Late st Contact Info) Description 10/02/2007 1:30 PM SIGN LANGUAGE TEACHER - 10/02/2007 2:47 PM SIGN LANGUAGE TEACHER Hospital Encounter [facility] Bipin Suh MD [address] [place] [address] Social History Tobacco Use Types Packs/Day Years Used Date Smoking Tobacco: Never Assessed Comments Unknown Sex and Gender Information Value Date Recorded Sex Assigned at Not on file 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
--- OUTSIDE RECORDS SUMMARY | 2024-07-21 11:20 | XMS_ITS | Encounter Summary ---
Author Organization [facility] Healthcare Address [address] [place] [address] Care Team Providers Care Steel Fixer Name Role Phone Unavailable Primary Care Provider Unavailabl e Encounter Details Date Type Department Care Team (Late st Contact Info) Description 01/03/2012 9:39 AM CDT - 01/03/2012 12:50 PM CDT Hospital Encounter [facility] Annemarie Guajardo MD [address] [place] [address] Avulsion fracture of tooth; Disorder of teeth and supporting structures Social History Tobacco Use Types Packs/Day Years Used Date Smoking Tobacco: Never Assessed Comments Unknown Sex and Gender Information Value Date Recorded Sex Assigned at Not on file 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
--- OUTSIDE RECORDS SUMMARY | 2024-07-21 11:20 | XMS_ITS | Encounter Summary ---
Author Organization [facility] Healthcare Address [address] [place] [address] Care Team Providers Care Municipal Services Manager Name Role Phone Unavailable Primary Care Provider Unavailabl e Encounter Details Date Type Department Care Team (Late st Contact Info) Description 05/29/2012 9:24 AM CDT - 05/29/2012 10:54 AM CDT Hospital Encounter [facility] Annemarie Guajardo MD [address] [place] [address] Chronic sinusitis Social History Tobacco Use Types Packs/Day Years Used Date Smoking Tobacco: Never Assessed Comments Unknown Sex and Gender Information Value Date Recorded Sex Assigned at Not on file 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
--- OUTSIDE RECORDS SUMMARY | 2024-07-21 11:20 | XMS_ITS | Encounter Summary ---
Author Organization [facility] Healthcare Address [address] [place] [address] Care Team Providers Care Floor Renovator Name Role Phone Unavailable Primary Care Provider Unavailabl e Encounter Details Date Type Department Care Team (Late st Contact Info) Description 02/10/2010 11:38 AM CDT - 02/10/2010 2:08 PM CDT Hospital Encounter [facility] Bipin Suh MD [address] [facility] [address] [place] [address] Sprain of back; Other overexertion and strenuous and repetitive movements or loads Social History Tobacco Use Types Packs/Day Years Used Date Smoking Tobacco: Never Assessed Comments Unknown Sex and Gender Information Value Date Recorded Sex Assigned at Not on file 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 PAN WASHER HAND Gender Identity Not on file Sexual Orientation Not on file documented as of this encounter Plan of Treatment Not on file documented as of this encounter Visit Diagnoses Diagnosis Sprain of back Sprain and strain of unspecified site of back Other overexertion and strenuous and repetitive movements or loads documented in this encounter
--- OUTSIDE RECORDS SUMMARY | 2024-07-21 11:20 | XMS_ITS | Encounter Summary ---
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
--- OUTSIDE RECORDS SUMMARY | 2024-07-21 11:20 | XMS_ITS | Encounter Summary ---
Author Organization [facility] Healthcare Address [address] [place] [address] Care Team Providers Care Humidifier Maintenance Worker Name Role Phone Unavailable Primary Care Provider Unavailabl e Encounter Details Date Type Department Care Team (Late st Contact Info) Description 05/15/2011 4:20 PM CDT - 05/15/2011 6:35 PM CDT Hospital Encounter [facility] Bipin Suh MD [address] [place] [address] Contusion of knee; Activities involving walking, marching and hiking Social History Tobacco Use Types Packs/Day Years Used Date Smoking Tobacco: Never Assessed Comments Unknown Sex and Gender Information Value Date Recorded Sex Assigned at Not on file 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
--- OUTSIDE RECORDS SUMMARY | 2024-07-21 11:20 | XMS_ITS | Encounter Summary ---
Author Organization [facility] Healthcare Address [address] [place] [address] Care Team Providers Care Spring Assembler Supervisor Name Role Phone Unavailable Primary Care Provider Unavailabl e Encounter Details Date Type Department Care Team (Late st Contact Info) Description 03/31/2012 3:57 PM CDT - 03/31/2012 5:09 PM CDT Hospital Encounter [facility] Annemarie Guajardo MD [address] [place] [address] Sprain of foot; Activities involving walking, marching and hiking Social History Tobacco Use Types Packs/Day Years Used Date Smoking Tobacco: Never Assessed Comments Unknown Sex and Gender Information Value Date Recorded Sex Assigned at Not on file 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 ANESTHESIOLOGY RESIDENT Gender Identity Not on file Sexual Orientation Not on file documented as of this encounter Plan of Treatment Not on file documented as of this encounter Visit Diagnoses Diagnosis Sprain of foot Sprain and strain of unspecified site of foot Activities involving walking, marching and hiking documented in this encounter
--- OUTSIDE RECORDS SUMMARY | 2024-07-21 11:20 | XMS_ITS | Encounter Summary ---
Author Organization [facility] Healthcare Address [address] [place] [address] Care Team Providers Care Mechanical Integrity Specialist Name Role Phone Unavailable Primary Care Provider Unavailabl e Encounter Details Date Type Department Care Team (Late st Contact Info) Description 02/18/2011 4:33 PM CDT - 02/18/2011 5:04 PM CDT Hospital Encounter [facility] Bipin Suh MD [address] [place] [address] Lumbar sprain; Accident Social History Tobacco Use Types Packs/Day Years Used Date Smoking Tobacco: Never Assessed Comments Unknown Sex and Gender Information Value Date Recorded Sex Assigned at Not on file 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
--- OUTSIDE RECORDS SUMMARY | 2024-07-21 11:20 | XMS_ITS | Encounter Summary ---
Author Organization [facility] Healthcare Address [address] [place] [address] Care Team Providers Care Knitted Garment Finisher Name Role Phone Unavailable Primary Care Provider Unavailabl e Encounter Details Date Type Department Care Team (Late st Contact Info) Description 12/11/2011 8:57 PM CDT - 12/12/2011 1:00 AM CDT Hospital Encounter [facility] Annemarie Guajardo MD [address] [place] [address] Hemorrhage of rectum and anus; Hemorrhoids; Diarrhea Social History Tobacco Use Types Packs/Day Years Used Date Smoking Tobacco: Never Assessed Comments Unknown Sex and Gender Information Value Date Recorded Sex Assigned at Not on file 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
--- OUTSIDE RECORDS SUMMARY | 2024-07-21 11:20 | XMS_ITS | Encounter Summary ---
Author Organization [facility] Healthcare Address [address] [place] [address] Care Team Providers Care Fish Drier Name Role Phone Unavailable Primary Care Provider Unavailabl e Encounter Details Date Type Department Care Team (Late st Contact Info) Description 09/08/2012 1:56 PM FIRST AID DIRECTOR - 09/08/2012 11:59 PM FIRST AID DIRECTOR Hospital Encounter [facility] Lonnie Bustillos MD [address] [place] [address] Irregular menstrual cycle Social History Tobacco Use Types Packs/Day Years Used Date Smoking Tobacco: Never Assessed Comments Unknown Sex and Gender Information Value Date Recorded Sex Assigned at Not on file 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 FIRST AID DIRECTOR Gender Identity Not on file Sexual Orientation Not on file documented as of this encounter Plan of Treatment Not on file documented as of this encounter Procedures Procedure Name Priority Date/Time Associated Diagnosis Comments US PELVIS COMPLETE Routine 09/08/2012 2: 53 PM FIRST AID DIRECTOR US TRANSVAGINAL Routine 09/08/2012 2:53 PM FIRST AID DIRECTOR documented in this encounter Results * US Pelvis Complete (09/08/2012 2:53 PM FIRST AID DIRECTOR) Anatomical Region Laterality Modality Pelvis N/A Ultrasound 09/08/2012 2:53 PM FIRST AID DIRECTOR Narrative 09/09/2012 8:10 AM FIRST AID DIRECTOR US Pelvis ??Acc#: ??[id number] US Transvaginal ??Acc#: ??[id number] DATE OF EXAM: ??Fe ??2012 CLINICAL HISTORY: [...] MD Abdoulaye - 11/26/2016 US Pelvis Acc#: [id number] US Transvaginal Acc#: [id number] DATE OF EXAM: Sep 08 2012 CLINICAL [...] esult * US Transvaginal (09/08/2012 2:53 PM FIRST AID DIRECTOR) Anatomical Region Laterality Modality Pelvis N/A Ultrasound 09/08/2012 2:53 PM FIRST AID DIRECTOR Narrative 09/09/2012 8:10 AM FIRST AID DIRECTOR US Pelvis ??Acc#: ??[id number] US Transvaginal ??Acc#: ??[id number] DATE OF EXAM: ??Sep ??2012 CLINICAL HISTORY: [...] MD Abdoulaye - 11/26/2016 US Pelvis Acc#: [id number] US Transvaginal Acc#: [id number] DATE OF EXAM: Sep 08 2012 CLINICAL [...]
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
--- OUTSIDE RECORDS SUMMARY | 2024-07-21 11:20 | XMS_ITS | Encounter Summary ---
Author Organization [facility] Healthcare Address [address] [place] [address] Care Team Providers Care Guzzler Builder Name Role Phone Unavailable Primary Care Provider Unavailabl e Encounter Details Date Type Department Care Team (Late st Contact Info) Description 08/19/2007 1:25 PM SOAP INSPECTOR - 08/19/2007 3:00 PM SOAP INSPECTOR Hospital Encounter [facility] Bipin Suh MD [address] [place] [address] Social History Tobacco Use Types Packs/Day Years Used Date Smoking Tobacco: Never Assessed Comments Unknown Sex and Gender Information Value Date Recorded Sex Assigned at Not on file 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 SOAP INSPECTOR Gender Identity Not on file Sexual Orientation Not on file documented as of this encounter Plan of Treatment Not on file documented as of this encounter Visit Diagnoses Not on filedocumented in this encounter
--- OUTSIDE RECORDS SUMMARY | 2024-07-21 11:20 | XMS_ITS | Encounter Summary ---
Author Organization [facility] Healthcare Address [address] [place] [address] Care Team Providers Care Population Geneticist Name Role Phone Unavailable Primary Care Provider Unavailabl e Encounter Details Date Type Department Care Team (Late st Contact Info) Description 01/30/2011 7:50 AM CDT - 01/30/2011 8:30 AM CDT Hospital Encounter [facility] Dillon Lopes [address] [place] [address] Contact dermatitis and other eczema Social History Tobacco Use Types Packs/Day Years Used Date Smoking Tobacco: Never Assessed Comments Unknown Sex and Gender Information Value Date Recorded Sex Assigned at Not on file 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 COATER SLATE Gender Identity Not on file Sexual Orientation Not on file documented as of this encounter Plan of Treatment Not on file documented as of this encounter Visit Diagnoses Diagnosis Contact dermatitis and other eczema documented in this encounter
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
--- OUTSIDE RECORDS SUMMARY | 2024-07-21 11:20 | XMS_ITS | Encounter Summary ---
Author Organization [facility] Healthcare Address [address] [place] [address] Care Team Providers Care Color Stripper Name Role Phone Unavailable Primary Care Provider [...] on file 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 INFORMATION TECHNOLOGY PROFESSOR Gender Identity Not on file Sexual [...]
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
== END 2024-07-16 15:21 | disposition home or self-care (01) ==
PROVIDERS: Emergency Provider Nurse Practitioner Family; PCP Internal Medicine
DX: J40 Bronchitis, not specified as acute or chronic (principal); J06.9 Acute upper respiratory infection, unspecified; F32.A Depression, unspecified; E66.9 Obesity, unspecified; Z68.42 Body mass index [BMI] 45.0-49.9, adult; E07.9 Disorder of thyroid, unspecified; Z90.89 Acquired absence of other organs
CPT/HCPCS: 99213; G0463

== ENCOUNTER 2024-11-12 17:52 | Emergency (ER) | payer BC, SELFPAY ==
--- NOTE | ~2024-11-12 | XR_ITS ---
EXAM: XR finger 1st LT min 2V DATE: 11/12/2024 18:33 HISTORY: JAMMING INJURY, MCP JOINT PAIN . COMPARISON: None available. FINDINGS: Osteopenia. No fracture or dislocation. No lytic or blastic lesion. Mild scattered degener ative changes. No erosion or periosteal change. Soft tissues within normal limits. IMPRESSION: No acute osseous finding in the left thumb. Reviewed, dictated and finalized at location K.
--- OUTSIDE RECORDS SUMMARY | 2024-11-12 17:54 | XMS_ITS | Clinical Summary ---
Author Organization [facility] Address [address] [place] [address] Phone Care Team Providers Care Metal Mine Inspector Name Role Phone Tomasz Martinez Primary Care Provider [phone] Allergies No known active allergies Medications levothyroxine [...] naloxone HCl (Narcan) 4 MG/0.1ML Liquid 1 [place] by Nasal route as needed (opioid overdose). [...] Active Active Problems No known active problems Immunizations Immunization Administration Dates Next Due Covid-19, [...] 88 04/30/2024 4:45 PM CDT Temperature 36.7 C (98.1 F) 04/30/2024 1:28 PM CDT Respiratory Rate 20 04/30/2024 4:45 PM CDT [...] Comments Hepatitis C Virus (HCV) Screening 1965 Mammogram 1965 TdaP Immunization 1965 Hepatitis B Immunization (1 of 3 - 19+ 3-dose series) 1984 Pap Smear 1986 Cervical Cancer Screening (CCS) 1995 HPV/Cotest 1995 Cologuard 2015 Immunochemical Fecal Occult Blood 2015 Pneumococcal Immunization (50+ years) (1 of 1 - PCV) 2015 Zoster Immunization (1 of 2) 2015 [...] on patient's age to complete this topic Insurance [facility] Care Teams Metal Mine Inspector Relationship Specialty Start Date End Date Tomasz Martinez PAC [address] [place] [address] PCP - General Physician Jewelry Sales Coordinator 06/25/20
--- OUTSIDE RECORDS SUMMARY | 2024-11-12 17:55 | XMS_ITS | Referral Summary ---
Author Organization [facility] Address [address] [place] [address] Care Team Providers Care Fan Mail Editor Name Role Phone Tomasz Martinez Primary Care Provider [phone] Encounters Date Type Department Care Team Description 11/07/2024 3:00 PM CDT Office Visit [facility] Diabetes Endocrine Care at [address] [place] [address] Beni Hess DO Post-operative hypothyroidism (Primary Dx) 10/04/[address] [facility] Gastroenterology at [place] [address] [facility] [address] [place] [address] Trini Fitzgerald MA from Last 3 Months Allergies No known active allergies Medications ondansetron (ZOFRAN) 4 mg tablet Take 1 tablet (4 mg total) by mouth every 4 (four) hours as needed for nausea or vomiting 15 tablet 0 Active ibuprofen (ADVIL,MOTRIN) 600 mg tabletIndications :Anti-inflammator y,Pain Take 1 tablet (600 mg total) by mouth every 6 (six) hours as needed for pain 30 tablet 1 Active busPIRone (BUSPAR) 5 mg tabletIndications :Generalized Anxiety Disorder Take 1 tablet (5 mg total) by mouth daily Active gabapentin (NEURONTIN) 100 mg capsule Take 2 capsules (200 mg total) by mouth 2 (two) times a day for 14 days 56 capsule 3 Active cetirizine (ZyrTEC) 10 mg tablet Take 1 tablet (10 mg total) by mouth daily Active dicyclomine (BENTYL) 10 mg capsule Take 1 capsule (10 mg total) by mouth 3 (three) times a day before meals 90 capsule 3 4 025 Active famotidine (PEPCID) 20 mg tablet Take 2 tablets (40 mg total) by mouth daily 60 tablet 11 4 025 Active bismuth subsalicylate 262 mg tablet,chewable Take 2 tablets (524 mg total) by mouth 4 (four) times a day for 14 days 112 tablet [address] (PROTONIX) 40 mg EC tablet Take one pill twice daily for 14 days while on H pylori regimen. 28 tablet 4 Active levothyroxine (SYNTHROID) 75 mcg tablet Take 1 tablet (75 mcg total) by mouth daily 90 tablet 3 5 026 Active levothyroxine (SYNTHROID, LEVOTHROID) 50 mcg tablet Take 1 tablet (50 mcg total) by mouth report checker before breakfast 025 Discontin ued(Other ) Active Problems Problem Noted Date Diagnosed Date [...] the importance of compliance with medications. Immunizations Immunization Administration Dates Next Due Influenza, Quadrivalent, Split, [...] on file 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 RETAIL SALES REPRESENTATIVE Gender Identity Not on file Sexual Orientation Not on file Last Filed Vital Signs Vital Sign Reading Time Taken Comments Blood Pressure 122/74 11/07/2024 2:45 PM CDT Pulse 91 11/07/2024 2:45 PM CDT Temperature 36.8 C (98.3 F) 06/07/2024 9:04 AM RETAIL SALES REPRESENTATIVE Respiratory Rate 18 06/07/2024 9:04 AM RETAIL SALES REPRESENTATIVE Oxygen Saturation 96% 06/23/2024 12: 56 PM RETAIL SALES REPRESENTATIVE Inhaled Oxygen Concentration - - Weight 111.6 kg (246 lb 1.6 oz) 11/07/2024 2:45 PM CDT Height 154.9 cm (5' 1 ) 11/07/2024 2:45 PM CDT Body Mass Index 46.5 11/07/2024 2:45 PM CDT Plan of Treatment Not on file Procedures Procedure Name Priority Date/Time Associated Diagnosis Comments COLONOSCOPY 02/03/2023 10:29 AM CDT from Last 3 Months or Most Recently Relevant to Health Maintenance Results * COLONOSCOPY (02/03/2023 10:29 AM CDT) Anatomical Region Laterality Modality Other Narrative Procedure Note Elisa Abbott MD - 02/03/2023 10:29 AM CDT [facility] Patient Name: Elizabeth Oates Procedure Date: 02/03/2023 10:29 AM Date of : 1965 Admit Type: Outpatient Age: 57 Gender: Female Attending MD: Elisa Abbott M.D. Room: [facility] ENDOSCOPY ROOM 1 Note Status: Finalized [...] under direct vision. The Pediatric Colonoscope PCF-H190L [id number] was introducedthrough the anus and advanced to [...] 10:29 AM Procedure Code(s): --- Professional --- 09598, Colonoscopy, flexible; with biopsy, single or multiple Diagnosis Code(s): --- Professional --- Z80.0, Family history of malignant neoplasm of digestive organs K64.8, Other hemorrhoids CPT copyright 2020 [employer]. All rights reserved. The codes documented in this report are preliminary and upon test inspection engineer reviewmay be revised to meet current compliance requirements. Recognized by the [employer] for promoting quality in endoscopy Elisa Abbott MD ENDOSCOPY PROCEDURES Final Result from Last 3 Months or Most Recently Relevant to Health Maintenance Insurance BLUE ACCESS CT BLUE ACCESS CT BLUE ACCESS CT Advance Directives For more information, please contact: [phone] * Full Code (Latest Code Status on [...] 11:16 AM 01/18/2018 3:21 PM Care Teams Fan Mail Editor Relationship Specialty Start Date End Date Tomasz Martinez PA [address] [place] [address] PCP - General 12/15/17
--- OUTSIDE RECORDS SUMMARY | 2024-11-12 17:55 | XMS_ITS | Data Portability ---
Author Organization [facility] Address [address] [facility] [place] [address] Care Team Providers Care Candle Wrapper Name Role Phone AZEEM MARTINEZ Primary Care Provider [phone] JOSE ROSADO Hepatology Physician Assessment No assessment recorded. Plan of Treatment Reminders Order Date Submit Date Provider Last Modified By Organization Details Last Modified Time Details Appointments None recorded. Lab CBC 2024 025 [facility], [address], [address], 5 09:15:09 CMP, serum or plasma 2024 025 [facility], [address] [place] [address], [address], 5 09:15:03 lipid panel, serum 2024 025 [facility], [address] [place] [address] [place], [place], [address], 5 09:15:01 TSH + free T4, serum 2024 025 [facility], [address] [facility], [facility] [address], [place], [address], 5 09:15:00 culture, wound 2023 024 [facility], [address] [facility], [facility] [address], [place], [address], 4 14:45:30 H pylori urea breath test, co2 infrared 2023 024 [facility], [address] [place] [address], [place], [address], 4 13:14:37 Referral endocrinol ogy referral 2024 025 SRIKANTH [facility], [address], [place], [address], 5 15:55:35 audiologis t referral 2023 024 [facility], [address] [place] [address], [address], 4 17:38:28 Procedures None recorded. Surgeries None recorded. Imaging barium swallow study 2023 024 GILLETT Os ([facility] Scheduling, [address] [place], [address], 4 16:10:26 Medication Orders mupirocin 2 % topical ointment [address] [facility]57[facility], [address], [place], [place], [id number], 5 14:59:57 clindamyci n HCl 300 mg capsule [address] [facility] #70561, [address], [place], [place], [id number], 5 14:25:00 fluconazol e 150 mg tablet [address] [facility] #83590, [address], [place], [place], [id number], 5 14:11:47 cephalexin 500 mg tablet 11/2023 [facility]21333, [address], [place], [place], [id number], 10:49:27 famotidine 20 mg tablet 2023 [facility], [address], [place], [place], [id number], 4 14:34:12 triamcinol one acetonide 0.1 % topical cream 2023 [facility]27770, [address], [place], [place], [id number], 4 14:34:12 Patient TargetsNo targets recorded. Patient Instructions Encounter Date Encounter Id Patient Instructions Last Modified By Organization Details Last Modified Time 04/20/2024 [id number] A healthy lifest yle: care instructions [email or web address] Not available 04/20/2024 14:34:12 gastroesophageal reflux disease (GERD): care instructions Not available 04/20/2024 14:33:37 learning about t he mediterranean diet [email or web address] Not available 04/20/2024 14:33:37 Plan of care has been discussed with patient including expected therapeutic benefits and potential side effects of prescribed medication and treatments. Patient verbalizes understanding and is in agreement with the plan of care. Patient was instructed to keep all scheduled appointments and contact the clinic for any additional problems. 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 Referring Physician: Piedad Jorge, [facility], Encounter Date: 04/20/2024 Endocrinology Referral for H ypothyroidism Referring Physician: Azeem Martinez [facility], Encounter Date: 11/06/2024 Results Created Date Observation Date Name Description Value Unit Range Abnormal Flag Note LastModifiedBy Organization Detail LastModifiedTime 06/12/20 24 06/15/2024 ANAER OBIC AND AEROB IC CULTU RE aerobic culture FINAL REPORT abnormal Not Available [facility] ([facility]) [address] [facility] [address], [place], [address], 06/16/2024 14:45:30 06/12/20 24 06/15/2024 ANAER OBIC [...] enem Light growt h Not Available [facility] ([facility]) [address] [facility] [facility] [address], [place], [address], 06/16/2024 14:45:30 06/12/20 24 06/15/2024 ANAER OBIC [...] S Vanco mycin S Not Available [facility] ([facility]) [address] [facility] [address], [place], [address], 06/16/2024 14:45:30 06/12/20 24 06/16/2024 ANAER OBIC AND AEROB IC CULTU RE anaerobic culture FINAL REPORT Not Available [facility] ([facility]) [address] [facility] [address], [place], [address], 06/16/2024 14:45:30 06/12/20 24 06/16/2024 ANAER OBIC AND AEROB IC CULTU RE result 1 COMMEN T No anaer obic growt h in 72 hours . Not Available [facility] ([facility]) [address] [facility] [address], [place], [address], 06/16/2024 14:45:30 11/03/19 25 11/03/2024 TSH+F REE T4 TSH 5.660 uIU/m L 0.450- 4.500 above high normal Not Available [facility] [address] [place], [address], 11/03/2024 09:15:00 11/03/19 25 11/03/2024 TSH+F REE T4 T4,free(dire ct) 1.00 NG/dL 0.82-1 .77 Not Available [address], [address], 11/03/2024 09:15:00 11/03/19 25 11/03/2024 LIPID PANEL cholesterol, total 145 mg/dL 100-19 9 Not Available [address], [address], 11/03/2024 09:15:01 11/03/19 25 11/03/2024 LIPID PANEL triglyceride s 67 mg/dL 0-149 Not Available [address], [address], 11/03/2024 09:15:01 11/03/19 25 11/03/2024 LIPID PANEL HDL cholesterol 48 mg/dL >39 Not Available [address], [address], 11/03/2024 09:15:01 11/03/19 25 11/03/2024 LIPID PANEL VLDL cholesterol nikos 14 mg/dL 5-40 Not Available [address], [address], 11/03/2024 09:15:01 11/03/19 25 11/03/2024 LIPID PANEL LDL chol calc ([facility]) 83 mg/dL 0-99 Not Available [address], [address], 11/03/2024 09:15:01 11/03/19 25 11/03/2024 COMP. METAB OLIC PANEL (14) glucose 81 mg/dL 70-99 Not Available [address], [address], 11/03/2024 09:15:03 11/03/19 25 11/03/2024 COMP. METAB OLIC PANEL (14) BUN 12 mg/dL 6-24 Not Available [address], [address], 11/03/2024 09:15:03 11/03/19 25 11/03/2024 COMP. METAB OLIC PANEL (14) creatinine 0.71 mg/dL 0.57-1 .00 Not Available [address], [address], 11/03/2024 09:15:03 11/03/19 25 11/03/2024 COMP. METAB OLIC PANEL (14) eGFR 98 mL/mi n/1.7 3 >59 Not Available [address], [address], 11/03/2024 09:15:03 11/03/19 25 11/03/2024 COMP. METAB OLIC PANEL (14) BUN/creatini ne ratio 17 9-23 Not Available [address], [address], 11/03/2024 09:15:03 11/03/19 25 11/03/2024 COMP. METAB OLIC PANEL (14) sodium 139 mmol/ L 134-14 4 Not Available [address], [address], 11/03/2024 09:15:03 11/03/19 25 11/03/2024 COMP. METAB OLIC PANEL (14) potassium 4.0 mmol/ L 3.5-5. 2 Not Available [address], [address], 11/03/2024 09:15:03 11/03/19 25 11/03/2024 COMP. METAB OLIC PANEL (14) chloride 101 mmol/ L 96-106 Not Available [address], [address], 11/03/2024 09:15:03 11/03/19 25 11/03/2024 COMP. METAB OLIC PANEL (14) carbon dioxide, total 24 mmol/ L 20-29 Not Available [address], [address], 11/03/2024 09:15:03 11/03/19 25 11/03/2024 COMP. METAB OLIC PANEL (14) calcium 9.1 mg/dL 8.7-10 .2 Not Available [address], [address], 11/03/2024 09:15:03 11/03/19 25 11/03/2024 COMP. METAB OLIC PANEL (14) protein, total 7.2 g/dL 6.0-8. 5 Not Available [address], [address], 11/03/2024 09:15:03 11/03/19 25 11/03/2024 COMP. METAB OLIC PANEL (14) albumin 4.0 g/dL 3.8-4. 9 Not Available [address], [address], 11/03/2024 09:15:03 11/03/19 25 11/03/2024 COMP. METAB OLIC PANEL (14) globulin, total 3.2 g/dL 1.5-4. 5 Not Available [address], [address], 11/03/2024 09:15:03 11/03/19 25 11/03/2024 COMP. METAB OLIC PANEL (14) bilirubin, total <0.2 mg/dL 0.0-1. 2 Not Available [address], [address], 11/03/2024 09:15:03 11/03/19 25 11/03/2024 COMP. METAB OLIC PANEL (14) alkaline phosphatase 96 IU/L 44-121 Not Available [address], [address], 11/03/2024 09:15:03 11/03/19 25 11/03/2024 COMP. METAB OLIC PANEL (14) AST (SGOT) 18 IU/L 0-40 Not Available [address], [address], 11/03/2024 09:15:03 11/03/1911/03/2024 COMP. METAB OLIC PANEL (14) ALT (SGPT) 16 IU/L 0-32 Not Available [address], [address], 11/03/2024 09:15:03 11/03/1911/03/2024 CARDI OVASC ULAR REPOR T interpretati on Note Suppl ement al repor t is avail able. Not Available [address], [address], 11/03/2024 09:15:04 11/03/1911/03/2024 CARDI OVASC ULAR REPOR T pdf . Not Available [address], [address], 11/03/2024 09:15:04 11/03/1911/03/2024 CBC, PLATE LET, NO DIFFE RENTI AL WBC 5.6 x10e3 /uL 3.4-10 .8 Not Available [address], [address], 11/03/2024 09:15:09 11/03/19 25 11/03/2024 CBC, PLATE LET, NO DIFFE RENTI AL RBC 3.73 x10e6 /uL 3.77-5 .28 below low normal Not Available [facility] & [address], [address], 11/03/2024 09:15:11/03/1911/03/2024 CBC, PLATE LET, NO DIFFE RENTI AL hemoglobin 11.3 g/dL 11.1-1 5.9 Not Available [address], [address], 11/03/2024 09:15:11/03/1911/03/2024 CBC, PLATE LET, NO DIFFE RENTI AL hematocrit 34.3 % 34.0-4 6.6 Not Available [address], [address], 11/03/2024 09:15:11/03/1911/03/2024 CBC, PLATE LET, NO DIFFE RENTI AL MCV 92 fL 79-97 Not Available [facility] & [address], [address], 11/03/2024 09:15:11/03/1911/03/2024 CBC, PLATE LET, NO DIFFE RENTI AL MCH 30.3 pg 26.6-3 3.0 Not Available [address], [address], 11/03/2024 09:15:11/03/1911/03/2024 CBC, PLATE LET, NO DIFFE RENTI AL MCHC 32.9 g/dL 31.5-3 5.7 Not Available [facility] & [address], [address], 11/03/2024 09:15:11/03/1911/03/2024 CBC, PLATE LET, NO DIFFE RENTI AL RDW 12.3 % 11.7-1 5.4 Not Available [facility] & [address], [address], 11/03/2024 09:15:09 11/03/19 25 11/03/2024 CBC, PLATE LET, NO DIFFE RENTI AL platelets 300 x10e3 /uL 150-45 0 Not Available [facility] [address] [place], [address], 11/03/2024 09:15:09 04/28/20 24 04/28/2024 cedricshirley carlee calistajose study No observ ation record ed. [facility]KANTH [facility] ([facility]) Scheduling [address] [place], [address], 05/01/2024 16:12:45 Result Notes None recorded. Problems Name Problem SNOMED Code Status Onset Date Resolution Date Notes Provider Name and Address Organization Details Recorded Time Folliculitis 83436676 Active Anna Davis [place], [place] [facility] 17:31:11 Abscess 589364344 Active Anna [place] [facility] 17:31:11 History of surgery 492853046 Active Anna [place] [facility] 17:31:11 History of subtotal thyroidectomy 859924921 Active Anna [place] [facility] 17:31:11 Depressive disorder 30252037 Active Anna [place] [facility] 17:31:11 Disorder of thyroid gland 45197173 Active Anna [place] [facility] 17:31:11 Abscess of skin and/or subcutaneous tissue 99493623 Active Anna [place] [facility] 17:31:11 Problem Notes None recorded. Procedures Surgical History Date Name Laterality Status Provider Name and Address Organization Details Recorded Time 4 I&D completed JOSE ROSADO MD Attn: Accounting,[address] [facility] [address] [address], [place], [address], [place] [facility] 06/12/2024 17:19:04 3 Date of Last Pap Smear completed Mirlande Tolliver MA [place] - [facility] 02/10/2024 15:02:54 8 colonoscopy completed Anjana LLUVIA Contreras [place] - [facility] 11/25/2018 10:33:20 Removal of thyroid completed Mirlande Tolliver [place] [facility] 01/01/2023 16:18:21 Imaging Results Imaging Date Name Status LastModified by Organiz ation Details LastModified Time 04/28/2024 barium swallow study completed [facility] ([facility]) Scheduling [address] [place], [address], 05/01/2024 16:12:45 Procedure Notes None recorded. Medical Equipment None Reported. Allergies Allergen ID Allergen Name Allergen Category Reaction Reaction Severity Criticality Documentation Date Start Date Code Code System Note Provider Name and Address Organization Details Recorded Time 388704 No known allergy (situatio n) Not available Not available Not available Not available 05/13/2021 39541 6003 SNOMED Not Available Not Available Not Available No known drug allergies Medications Name Sig Start Date Stop Date Status Note LastModified by Organization Details LastModified Time Prescriptio n - Prior Authorizati on Request active Not Available Not Available N ot Available tetracyclin e 500 mg capsule 11/02 completed Not Available Not Available Not Available cyclobenzap rine 10 mg tablet TAKE 1 TABLET BY MOUTH THREE TIMES DAILY FOR UP TO 7 DAYS NEEDED FOR MUSCLE SPASMS 03/24 completed Not Available Not Available Not Available amoxicillin 500 mg capsule TAKE 2 CAPSULES BY MOUTH IN THE MORNING AND AT BEDTIME FOR 14 DAYS FOR ABDOMINAL INFECTION 11/02 completed Not Available Not Available Not Available budesonide 32 mcg/actuati on nasal spray Take 2 sprays twice a day by nasal route. 12/05 completed Not Available Not Available Not Available clindamycin HCl 300 mg capsule TAKE 1 CAPSULE BY MOUTH EVERY 6 HOURS FOR 10 DAYS active Not Available Not Available No t Available cetirizine 10 mg tablet TAKE 1 TABLET BY MOUTH DAILY FOR 14 DAYS 04/20 completed Not Available Not Available Not Available fluconazole 150 mg tablet 11/02 completed Not Available Not Available Not Available benzonatate 200 mg capsule TAKE 1 CAPSULE BY MOUTH THREE TIMES DAILY DIRECTED 11/16 completed Not Available Not Available Not Available clarithromy alysa 500 mg tablet TAKE 1 TABLET BY MOUTH TWICE DAILY FOR 14 DAYS FOR ABDOMINAL INFECTION 11/02 completed Not Available Not Available Not Available hydrocodone 5 mg-acetamin ophen 325 mg [...] MOUTH FOUR TIMES DAILY FOR 10 DAYS 11/02 completed Not Available Not Available Not Available fexofenadin e 180 mg tablet 12/05 [...] MOUTH EVERY 8 HOURS FOR 10 DAYS 11/02 completed Not Available Not Available Not Available ketorolac 10 mg tablet TAKE 1 TABLET BY MOUTH EVERY 6 HOURS FOR UP TO 5 DAYS NEEDED FOR MODERATE TO SEVERE PAIN 04/20 completed Not Available Not Available Not Available levothyroxi ne 75 mcg tablet TAKE 1 TABLET BY MOUTH EVERY DAY active Not Available Not Available No t Available neomycin-ba citracin-po lymyxn 3.5 mg-400 unit-10,000 unit/gram [...] Available Not Available cephalexin 500 mg capsule TAKE 1 CAPSULE BY MOUTH FOUR TIMES DAILY FOR 10 DAYS 11/02 completed Not Available Not Available Not Available pantoprazol e 40 mg tablet,luis yed [...] completed Not Available Not Available Not Available mupirocin 2 % topical ointment APPLY A SMALL AMOUNT TO THE AFFECTED AREA BY TOPICAL ROUTE THREE TIMES DAILY active Not Available Not Available No t Available gabapentin 100 mg capsule TAKE 1 [...] Updated DateTime 4 154.94 cm 45.9 kg/m2 956080. 23 g 98 % 98 % 78 /min 16 /min 108 mm[Hg] 71 mm[Hg] Elaine Farrell MA [facility] 4 14:13:23 Date Recorded Body height Body mass index (BMI) Body weight Oxygen saturation Oxygen saturation in Arterial blood by Pulse oximetry Heart rate Respiratory rate Systolic blood pressure Diastolic blood pressure Provider Name and Address Organization Details Last Updated DateTime 4 154.94 cm 46.3 kg/m2 746396. 41 g 97 % 97 % 82 /min 16 /min 119 mm[Hg] 84 mm[Hg] Elaine Farrell MA [facility] 4 15:35:46 Date Recorded Body height Body mass index (BMI) Body weight Oxygen saturation Oxygen saturation in Arterial blood by Pulse oximetry Heart rate Body temperature Systolic blood pressure Diastolic blood pressure Provider Name and Address Organization Details Last Updated DateTime 4 154.94 cm 45.3 kg/m2 020795. 17 g 98 % 98 % 92 /min 98.9 [degF] 137 mm[Hg] 88 mm[Hg] Vangie Yoo MA [facility] 4 16:19:51 Date Recorded Body height Body mass index (BMI) Body weight Respiratory rate Oxygen saturation Oxygen saturation in Arterial blood by Pulse oximetry Heart rate Systolic blood pressure Diastolic blood pressure Provider Name and Address Organization Details Last Updated DateTime 5 154.94 cm 47.2 kg/m2 313089. 09 g 16 /min 97 % 97 % 83 /min 124 mm[Hg] 80 mm[Hg] Elaine Farrell MA [facility] 5 14:14:07 Date Recorded Body height Body mass index (BMI) Body weight Respiratory rate Oxygen saturation Oxygen saturation in Arterial blood by Pulse oximetry Heart rate Systolic blood pressure Diastolic blood pressure Provider Name and Address Organization Details Last Updated DateTime 5 154.94 cm 46.1 kg/m2 835989. 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 No Information not available 01/08/2021 Live Alone Or With Others? With Others Information not available 02/06/2020 What Was The Date Of Your Most Recent Tobacco Screening? 11/06/2024 Information not available 11/06/2024 What Is Your Relationship Status? Information not [...] Anxious, Or Unable To Sleep At Night)? [id number] Hard Time Sleeping Information not available 04/22/2022 Do You Use Any Illicit Or Recreational Drugs? No Information not available 10/17/2020 Has Tobacco Cessation Counseling Been Provided? No Information not available 05/13/2021 On What Date Was Tobacco Cessation Counseling Provided? 11/06/2024 Information not available 11/06/2024 Do You Or Have You Ever Used [...] Response Coronary Artery Disease N Other N Atrial Fibrillation N High Blood Pressure N Depression N COPD N Blood Clots N Anxiety Disorder N Muscle, Joint, or Bone Problems N Acid Reflux (GERD) N Cancer N Stroke N High Cholesterol N Liver Disease N Headaches N Kidney or Bladder Problems N Thyroid Problems Y GI Problems N Skin Problems N Anemia N Heart Attack ([place]) N Diabetes N Seizures/Epilepsy N Asthma N Allergies N Hepatitis N Heart Failure N Osteoporosis N Gynecological [...] quadrivalent, preservative 3 completed Piedad Beckman MA [facility], [place] - [facility] 05/18/2023 17:09:22 Past Encounters Encounter ID Performer Location Encounter Start Date Encounter Closed Date Diagnosis/Indication Diagnosis SNOMED-CT Code Diagnosis ICD10 Code Diagnosis Note [id number] Azeem Martinez PA-C [facility] [address] [place] [address] 12/15/2017 16:01:41 12/15/2017 17:37:09 Dysuria-frequency syndrome 9317994 R35.0 Pain in fi nger of right hand 7974752102 13964 M79.644 Chronic di arrhea of unknown origin 63814739 K52.3 Hypothyroidism 53236711 E03.9 [id number] Azeem Martinez PA-C [facility] [address] [place] [address] 12/24/2017 16:34:16 12/24/2017 17:23:15 Costal chondritis 65514160 M94.0 [id number] Azeem Martinez PA-C [facility] [address] [place] [address] 04/19/2018 15:16:30 04/19/2018 16:05:36 Increased frequency of urination 469328974 R35.0 Unexplaine d weight loss 391033065 R63.4 Upper resp iratory infection 10175848 J01.01 [id number] Azeem Martinez PA-C [facility] [address] [place] [address] 04/26/2018 10:55:58 04/26/2018 11:21:02 Acute pharyngitis 787594617 J02.8 Hypothyroidism 18631775 E00.0 [id number] Azeem Martinez PA-C [facility] [address] [place] [address] 07/18/2018 11:27:45 07/18/2018 12:19:33 Hypothyroidism 66478858 E00.0 Body mass index 40+ - severely obese 032745471 Z68.41 Pain in fi nger of left hand 1360355110 78627 M79.645 Crushing i njury of finger 73110056 S67.193A [id number] Azeem Martinez PA-C [facility] [address] [place] [address] 12/05/2018 13:54:43 12/05/2018 14:47:54 Goiter 1249449 E04.9 Screening for malignant neoplasm of breast 335584330 Z12.31 [id number] Azeem Martinez PA-C [facility] [address] [place] [address] 03/16/2019 14:55:12 03/16/2019 17:08:12 Pain in right foot 7601161210 03735 M79.197 [id number] Azeem Martinez PA-C [facility] [address] [place] [address] 05/04/2019 15:40:55 05/04/2019 16:43:03 Acute bronchitis with bronchospasm 56566504 J20.8 [id number] Azeem Martinez PA-C [facility] [address] [place] [address] 06/27/2019 14:45:08 06/27/2019 16:13:18 Acute bronchitis with bronchospasm 71227301 J20.8 Acute bronchitis 2627567 2 J20.9 [id number] Azeem Martinez PA-C [facility] [address] [place] [address] 02/06/2020 09:55:51 02/06/2020 15:49:18 Irritable bowel syndrome with diarrhea 860984708 K58.0 Hypothyroidism 44179323 E00.0 [id number] Azeem Martinez PA-C [facility] [address] [place] [address] 02/13/2020 15:33:42 02/13/2020 16:17:55 Irritable bowel syndrome with diarrhea 306116673 K58.0 Chronic diarrhea 1010666 09 K52.9 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 Chronic depression 06051 0009 F34.1 [id number] Azeem Martinez PA-C [facility] [address] [place] [address] 02/20/2020 13:45:02 02/20/2020 16:58:01 Hypothyroidism 08815486 E00.0 [id number] NAY ASHLEY, INSIGHTS ANALYST [facility] [address] [place] [address] 04/05/2020 15:24:12 04/09/2020 10:30:48 Viral screening 783656321 Z11.59 [id number] Azeem Martinez PA-C [facility] [address] [place] [address] 06/26/2020 09:39:19 06/26/2020 15:33:02 Ingrowing nail of toe of left foot 8754528842 6420128 L60.0 [id number] Maribell Devi, INVOICE CODER-BC [place] [address] [place] [address] 07/01/2020 13:58:52 07/02/2020 12:23:38 Suspected COVID-19 689053420 Z03.89 [id number] Azeem Martinez PA-C [facility] [address] [place] [address] 10/17/2020 15:14:55 10/22/2020 11:26:52 Cellulitis of face 128413392 L03.386 [id number] Azeem Martinez PA-C [facility] [address] [place] [address] 01/08/2021 14:45:25 01/08/2021 16:06:53 Abscess of left axilla 6176612107 8971979 L02.412 Pain in left foot 057119 7549 17921 M79.640 [id number] Azeem Martinez PA-C [facility] [address] [place] [address] 05/13/2021 16:41:37 05/13/2021 18:01:51 Pain in left foot 6619328492 57181 M79.672 Body mass index 30+ - obesity 293714372 Z68.41 [id number] Anan Davis MA [facility] [address] [place] [address] 12/04/2021 14:27:00 12/04/2021 15:41:05 Low back pain 559253808 M54.50 Backache w ith radiating pain 282105834 M54.05 Goiter 2240668 E04.9 Adult heal th examination 261245099 Z00.00 Generalize d anxiety disorder 83076795 F41.1 [id number] Azeem Martinez PA-C [facility] [address] [place] [address] 04/22/2022 14:43:43 04/22/2022 16:02:38 Overweight 094315657 E66.3 Chronic he adache disorder 677015822 G44.89 [id number] Anna Davis [facility] [address] [place] [address] 06/30/2022 16:51:56 06/30/2022 17:54:01 Administration of SARS-CoV-2 antigen vaccine 332931194 Z23 [id number] Anna Davis [facility] [address] [place] [address] 06/30/2022 16:54:18 07/01/2022 12:27:51 Administration of influenza vaccine 33216226 Z23 [id number] Azeem Martinez PA-C [facility] [address] [place] [address] 11/16/2022 15:59:05 11/18/2022 13:22:11 Low back pain 571279732 M54.59 Backache w ith radiating pain 569488751 M54.9 Overweight [id number] E66 .3 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 [id number] E06.3 Screening for malignant neoplasm of breast 739112227 Z12.31 [id number] MD Maria Guadalupe MARCUM (CUTTER OPERATOR HELPER) [address] [place] [address] 01/01/2023 15:39:04 01/19/2023 08:40:06 Screening for malignant neoplasm of cervix 364731310 Z12.4 - Due for co-testing ; collected today Screening for malignant neoplasm of colon 397871876 Z12.11 - Due for colorectal cancer screening; recommende d colonoscop y Screening for malignant neoplasm of breast 448054549 Z12.31 - Due for screening mammogram; ordered by PCP Routine gy necologic examination done [id number] 9101 Z01.419 - Reviewed risks for cancer; ordered screening tests as appropriat e [id number] Azeem Martinez PA-C [facility] [address] [place] [address] 04/14/2023 14:29:07 04/15/2023 16:11:56 Tinea corporis 22983516 B35.4 Overweight 043536287 E66 .3 [id number] Azeem Martinez PA-C [facility] [address] [place] [address] 05/18/2023 15:44:32 05/27/2023 10:14:10 Administration of influenza vaccine 92384789 Z23 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 045790130 E06.3 Mixed anxi ety and depressive disorder 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 F41.8 Overweight 963149176 E66 .3 Adult heal th examination 572450376 Z00.00 Squamous c ell carcinoma of skin 089387423 C44.877 [id number] Azeem Martinez PA-C [facility] [address] [place] [address] 07/06/2023 14:12:45 07/07/2023 09:34:05 Lumbar radiculopathy 780734265 M54.16 [id number] MD Maria Guadalupe MARCUM (CUTTER OPERATOR HELPER) [address] [place] [address] 02/10/2024 14:47:07 03/01/2024 13:13:40 Tinea cruris 397550688 B35.6 - Exam consistent with tinea cruris- Will treat with ketoconazo le cream- Advised keeping area as dry as possible to prevent recurrence [id number] Azeem Martinez PA-C [facility] [address] [place] [address] 03/24/2024 14:38:10 03/27/2024 14:26:18 Chronic depression 868189184 F34.1 History of polyp of colon 727467789 Z86.010 Overweight 921525329 E66 .3 Screening for malignant neoplasm of breast 227275525 Z12.31 [id number] [facility] [address] [place] [address] 04/20/2024 13:56:25 04/24/2024 09:00:33 Eczema 09641597 L30.9 -Patient agreeable to treatment with triamcinol one cream BID for 1-2 weeks. INSIGHTS ANALYST discussed risks of prolonged steroid use including thinning of the skin.-Vero ent to follow up in clinic if symptoms do not improve. Gastroesop hageal reflux disease without esophagitis 265071541 K21.9 -Patient symptoms concerning for GERD-INSIGHTS ANALYST discussed at length diet management of GERD and provided informatio nal handouts. Patient to work on decreasing her soda intake.-Pl an to check H pylori breath test.-Vero ent agreeable to short term famotidine 20mg daily PRN therapy. INSIGHTS ANALYST explained patient can only be on this therapy for 6-12 weeks to help control symptoms.- GI referral previously placed by PCP. Patient to make an appointmen t.-F/u in 2 months Decreased hearing 365160 001 H91.90 -Patient reports concerns for decreased hearing.-A udiologist referral sent. Body mass index 40+ - severely obese 014285842 Z68.42 INSIGHTS ANALYST advised patient to follow a well balanced diet and obtain regular exercise. Informatio nal handout provided. Dysphagia 78618070 R13.1 0 -Patient reports food 'gets caught when she tries to swallow'-P atient agreeable to barium swallow study-Vero ent to make appointmen t with GI. HIV screen ing declined [id number] 89341 Z53.20 [id number] Azeem Martinez PA-C [facility] [address] [place] [address] 04/25/2024 14:26:30 05/02/2024 14:34:09 Helicobacter pylori gastrointestinal tract infection 636864320 B96.81 Gastroesop hageal reflux disease without esophagitis 149397996 K21.9 [id number] MD Maria Guadalupe MARCUM (CUTTER OPERATOR HELPER) [address] [place] [address] 06/12/2024 16:04:56 06/16/2024 07:40:44 Abscess of skin and/or subcutaneous tissue 36295839 L02.91 - I&D performed without complicati on- Will treat empiricall y with cephalexin 500 mg BID x5d; will adjust treatment based on aerobic/an aerobic coverage Candidal intertrigo 2661 [address]73[address] B37.2 - Will treat with fluconazol e 150 mg once now and again after completing Abx [id number] Azeem Martinez PA-C [facility] [address] [place] [address] 11/02/2024 14:06:56 11/03/2024 10:53:56 Abscess of skin and/or subcutaneous tissue 11211452 L02.91 clindamyci n rx..follow up on Wednesday for re eval Hypothyroidism 71487122 E00.0 Overweight 607197921 E66 .3 [id number] Azeem Martinez PA-C [facility] [address] [place] [address] 11/06/2024 14:29:51 11/08/2024 13:09:36 Abscess of skin and/or subcutaneous tissue 52713763 L02.91 cont clindamyci n...add mupirocin Hypothyroidism 59350910 E00.0 Overweight 140102878 E66 .3 Health Concerns Section Related Observation LastModified by Organization Detai ls LastModified Time None Recorded Concern Status LastModified by Organization Details LastModified Time None Recorded Advance Directives Directive None Recorded Payers Encounter Date Sequence Insurance Name Policy Number Policy Bravo Covered Member ID Bravo Member ID Guarantor Name 04/20/2024 1 [id number] Elizabeth Oates [id number] Elizabeth Goodenley 04/25/2024 1 [place] [id number] Elizabeth Oates [id number] Elizabeth Goodenley 06/12/2024 1 [place] [id number] Elizabeth Oates [id number] Elizabeth Иван 11/02/2024 1 [place] [id number] Elizabeth Oates [id number] Elizabeth Goodenley 11/06/2024 1 [place] [id number] Elizabeth Oates [id number] Elizabeth Goodenley Notes Date Note Type Note Provider Name and Address Organization Details Recorded Time 04/20/2024 text/html Patient presents to the clinic with acute complaint of GERD/Gas pains and a rash. Patient is established with Narciso GIRDER for primary care. Patient's past medical history [...] the ED. TREVIN REID Attn: Accounting, [address] [place], [address], [facility] 04/20/2024 17:10:58 04/25/2024 text/html is concerned re ulcer and positive H Pylori...has a family hx of ulcers Azeem Martinez PA-C Attn: Accounting, [address] [place], [place], [address] [place] [address], [facility] 04/25/2024 16:05:55 06/12/2024 text/html Right inguinal b oil- Lesion appeared about 3 days ago- Has been using warm compresses- No fevers or chills. Tmax 99 today. JOSE ROSADO MD Attn: Accounting, [address] [place], [address], [place] [facility] 06/12/2024 17:24:05 11/02/2024 text/html reports an infec tamia sore on her back and says her throat is sore as well...also time for labs..hx of hypothyroidism Azeem Martinez PA-C Attn: Accounting, [address] [place], [address], [facility] 11/02/2024 14:26:14 11/06/2024 text/html discuss labs and check wound/abscess on back...abscess healing...slightly anemic..TSH is elevated (had partial removal)..?.... no longer has an endo... Azeem Martinez PA-C Attn: Accounting,[address] , [place], [address], [place] [facility] 11/06/2024 15:01:14 OBGyn Episode Ob Episode Information Episode Created Date Number of Fetuses Patient Bloodtype Patient rh Status Prepregnancy Weight lbs Domestic Partner Domestic Partner Phone Father Name Beveling And Edging Machine Operator Status 01/02/20 23 1 CLOSED Fetus Data First Name Last Name Admitted to NICU Weight (g) Sex Living Outcome Pediatric Complications Fetus ID Race Codes Race Delivery Type M Full Term [id number] Vaginal Mao Calculation Initial Mao Date Initial Exam Date Initial Exam Provider Initial Ultrasound Date Last Menstrual Period Date Ultra Sound Weeks Gestation 0 Eighteen To Twenty Week Mao Update Ultra Sound Date Fundal Height At Umbil Quickening Date Ultra Sound Latest Weeks Gestation Final Mao Confirmed By Final Mao Confirmed Date Final Mao Date Ultra Sound Latest Days Gestation 0 [...]
--- OUTSIDE RECORDS SUMMARY | 2024-11-12 17:55 | XMS_ITS | Encounter Summary ---
Author Organization [facility] Address [address] [place] [address] Phone Care Team Providers Care Trombone Slide Assembler Name Role Phone Tomasz Martinez Primary Care Provider Encounter Details Date Type Department Care Team (Late st Contact Info) Description 04/21/2024 Transcribe Orders [facility] Central Scheduling [address] [place] [id number] Piedad Jorge, OPERATOR [employer], INBOUND SALES ADVISOR [address] [place] [address] Social History Tobacco Use Types Packs/Day Years [...] on filedocumented in this encounter Care Teams Trombone Slide Assembler Relationship Specialty Start Date End Date Tomasz Martinez PAC [address] [place] [id number] PCP - General Physician Director Of Residence Life 06/25/20 documented as of this encounter
--- OUTSIDE RECORDS SUMMARY | 2024-11-12 17:55 | XMS_ITS | Clinical Summary ---
Author Organization [facility] Address [address] [place] [address] Care Team Providers Care Well Puller Head Name Role Phone Tomasz Martinez Primary Care Provider [phone] Allergies No known active allergies Medications ondansetron [...] 1 tablet (50 mcg total) by mouth primary products inspectors before breakfast 025 Discontin ued(Other ) Active [...] 11/07/2024 3:00 PM CDT Office Visit [facility] Diabetes Endocrine Care at [address] [place] [address] Beni Hess DO Post-operative hypothyroidism (Primary Dx) 10/04/[address] 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 Gender Identity Not on file Sexual Orientation Not on file Obstetrics History Last Filed Vital Signs Vital Sign Reading Time Taken Comments Blood Pressure 122/74 11/07/2024 2:45 PM CDT Pulse 91 11/07/2024 2:45 PM CDT Temperature 36.8 C (98.3 F) 06/07/2024 9:04 AM CIGARETTE MACHINE OPERATOR Respiratory Rate 18 06/07/2024 9:04 AM CIGARETTE MACHINE OPERATOR Oxygen Saturation 96% 06/23/2024 12: 56 PM CIGARETTE MACHINE OPERATOR Inhaled Oxygen Concentration - - Weight 111.6 kg (246 lb 1.6 oz) 11/07/2024 2:45 PM CDT Height 154.9 cm (5' 1 ) 11/07/2024 2:45 PM CDT Body Mass Index 46.5 11/07/2024 2:45 PM CDT Plan of Treatment Health Maintenance Due Date Last Done Comments Breast Cancer Screening-Mammogram 1965 Cervical Cancer Screening 1965 Depression Screening 1965 Hepatitis C Screening 1965 DTaP/Tdap/Td Vaccine (1 - Tdap) 1976 Hepatitis B Screening 1983 Regular Well Visit/Exam 18-64 1983 Zoster Vaccine (1 of 2) 2015 Covid-19 Vaccine ( - season) 2024 06/30/2022, 07/22/2021, 10/19/2020, Additional history exists Influenza Vaccine (Season Ended) 2025 05/18/2023, 06/30/2022 Colon Cancer Screening-Colonoscopy 02/03/2033 02/03/2023, 01/18/2018 Colon [...] Female Attending MD: Elisa Abbott M.D. Room: [facility] ENDOSCOPY ROOM 1 Note Status: [...] under direct vision. The Pediatric Colonoscope PCF-H190L [id number] was introducedthrough the anus and advanced to [...] 10:29 AM Procedure Code(s): --- Professional --- 28565, Colonoscopy, flexible; with biopsy, single or multiple Diagnosis Code(s): --- Professional --- Z80.0, Family history of malignant neoplasm of digestive organs K64.8, Other hemorrhoids CPT copyright 2020 [employer]. All rights reserved. The codes documented in this report are preliminary and upon safety security officer reviewmay be revised to meet current compliance requirements. Recognized by the [employer] for promoting quality in endoscopy Elisa Abbott MD ENDOSCOPY PROCEDURES Final Result from Last 3 Months or Most Recently Relevant to Health Maintenance Insurance [facility] Working [place] Advance Directives For more information, please contact: [phone] * Full Code (Latest Code Status on [...] 11:16 AM 01/18/2018 3:21 PM Care Teams Well Puller Head Relationship Specialty Start Date End Date Tomasz Martinez PA [address] [place] [address] PCP - General 12/15/17
[2024-11-12 18:00] VITALS: BP 145/85; PULSE 83; RESP 16; TEMP 36.5; O2SAT 99
--- NOTE | 2024-11-12 19:21 | ED_ITS ---
HPI - General Adult General Chief complaint: Extremity Injury, Upper Stated complaint: Fall Injury/Left Thumb Source: patient Limitations: no limitations History of Present Illness HPI narrative: Patient presents for evaluation of left thumb pain. She indicates she tripped over her dog in her left hand had her bed frame this morning. She has experience 5/10 pain in left thumb since that time. Movement makes her symptoms worse. She is left-hand dominant. She has not taken any medication to assist with her symptoms. Related Data Home Medications ?Medication ?Instructions ?Recorded ?Confirmed ?Last Taken ?Type escitalopram oxalate 10 mg tablet 10 mg PO DAILY 02/24/20 11/12/24 02/24/20 History levothyroxine 50 mcg tablet 50 mcg PO DAILY 09/07/20 11/12/24 Unknown History buspirone 10 mg tablet 10 mg PO BID 08/27/22 11/12/24 Unknown History levothyroxine 75 mcg tablet mcg 11/12/24 Unknown History mupirocin 2 % topical ointment topical 11/12/24 Unknown History Allergies Allergy/AdvReac Type Severity Reaction Status Date / Time No Known Allergies Allergy Verified 11/12/24 17:57 Review of Systems Review of Systems: CONSTITUTIONAL: Denies fever, chills, or sweats. EYES: Denies visual changes, redness, or discharge. ENT: Denies rhinorrhea, congestion, sore throat, or otalgia. CARDIOVASCULAR: Denies chest pain, palpitations, or edema. RESPIRATORY: Denies cough or dyspnea. GASTROINTESTINAL: Denies abdominal pain, nausea, vomiting, or diarrhea. GENITOURINARY: Denies dysuria or hematuria. SKIN: Denies rash or itching. MUSCULOSKELETAL: Reports left thumb pain. NEUROLOGIC: Denies headache, numbness, dizziness, or weakness. PSYCHIATRIC: Denies anxiety or depression. [facility] Past Medical History Medical History Obese Depression Thyroid disorder Surgical History Surgical History H/O thyroidectomy History of dilatation and curettage H/O partial thyroidectomy Family History Family History Mother Hypertension Father Hypertension Social History Social History Smoking status: Never smoker Alcohol intake: never Substance use: never Living arrangements: with family Gender identity (if verbalized by the patient): Female Sexual Orientation (if Verbalized by the Patient): Straight or Heterosexual Spiritual care concerns: No Exam Narrative: GENERAL: Well-appearing, well-nourished, and in no acute distress. HEAD: Normocephalic, atraumatic. EYES: PERRLA and EOMI. ENT: Nares clear, no rhinorrhea or epistaxis. Mucous membranes moist. Oropharynx without tonsillar hypertrophy exudate or other lesions. Bilateral T Ms pearly cage nonbulging NECK: Supple. No adenopathy or masses. No carotid bruits or JVD CHEST: Clear to auscultation. No respiratory distress. No wheezes rales or rhonchi HEART: Regular rate and rhythm. No murmur heard. Normal peripheral pulses. ABDOMEN: Soft, nontender, nondistended, normal active bowel sounds. EXTREMITIES: There is no tenderness in the left thumb. Decreased ROM of IP kaley int of the left thumb. No swelling, crepitus or deformity SKIN: Warm, dry, no rash. NEURO: No focal deficits. Alert and oriented x3. PSYCH: Normal mood and affect. Course Course Emergency Course: This is a 59-year-old female who presented for evaluation of left thumb pain. X-ray negative for fracture. Exam consistent with strain. Recommend rice therapy. NSAIDs for pain. Follow-up with primary provider. Go to the ER for worsening symptoms. Patient in agreement with plan of care. Level of Care: Express Care Visit Vital Signs Vital signs: Vital Signs Temperature 36.5 C 11/12/24 18:00 Pulse Rate 83 11/12/24 18:00 Respiratory Rate 16 11/12/24 18:00 Blood Pressure 145/85 H 11/12/24 18:00 Pulse Oximetry 99 11/12/24 18:00 Oxygen Delivery Room Air 11/12/24 18:00 Temperature 36.5 C 11/12/24 18:00 Pulse Rate 83 11/12/24 18:00 Respiratory Rate 16 11/12/24 18:00 Blood Pressure 145/85 H 11/12/24 18:00 Pulse Oximetry 99 11/12/24 18:00 Oxygen Delivery Room Air 11/12/24 18:00 Medical Decision Making Vital Signs Vital Signs: Vital Signs Temperature 36.5 C 11/12/24 18:00 Pulse Rate 83 11/12/24 18:00 Respiratory Rate 16 11/12/24 18:00 Blood Pressure 145/85 H 11/12/24 18:00 Pulse Oximetry 99 11/12/24 18:00 Oxygen Delivery Room Air 11/12/24 18:00 Temperature 36.5 C 11/12/24 18:00 Pulse Rate 83 11/12/24 18:00 Respiratory Rate 16 11/12/24 18:00 Blood Pressure 145/85 H 11/12/24 18:00 Pulse Oximetry 99 11/12/24 18:00 Oxygen Delivery Room Air 11/12/24 18:00 Imaging Data Radiologist's impression: EXAM: XR finger 1st LT min 2V DATE: 11/12/2024 18:33 HISTORY: JAMMING INJURY, MCP JOINT PAIN . COMPARISON: None available. FINDINGS: Osteopenia. No fracture or dislocation. No lytic or blastic lesion. Mild scattered degenerative changes. No erosion or periosteal change. Soft tissues within normal limits. IMPRESSION: No acute osseous finding in the left thumb. Discharge Plan Discharge Clinical Impression: Strain of thumb, left Patient Disposition: Home Condition: Stable Instructions: Antibiotic Form, Finger Sprain (ED) Patient Language: British Prescriptions: No Action levothyroxine 50 mcg Tablet 50 mcg PO DAILY loratadine [Claritin] 10 mg tablet 10 mg PO DAILY 14 Days Qty: 14 0RF prednisone 20 mg tablet 40 mg PO DAILY 5 Days Qty: 10 0RF fluticasone propionate [Flonase Allergy Relief] 50 mcg/actuation spray,suspension 2 spray NASAL BID Qty: 9.9 0RF Rx Instructions: administer into each nostril buspirone 10 mg tablet 10 mg PO BID levothyroxine 75 mcg tablet mupirocin 2 % ointment TOPICAL escitalopram oxalate 10 mg tablet 10 mg PO DAILY Follow-up/Referrals: Michelle,CHEO Dunn [Primary Care Provider] - Time of Disposition: 19:20
== END 2024-11-12 19:23 | disposition home or self-care (01) ==
PROVIDERS: Emergency Provider Nurse Practitioner; PCP Physician Assistant
DX: S69.82XA Other specified injuries of left wrist, hand and finger(s), initial encounter (principal); W01.198A Fall on same level from slipping, tripping and stumbling with subsequent striking against other object, initial encounter; E07.9 Disorder of thyroid, unspecified; F32.A Depression, unspecified; E66.9 Obesity, unspecified; Z90.89 Acquired absence of other organs; Z68.41 Body mass index [BMI] 40.0-44.9, adult
CPT/HCPCS: 73140; 99213; G0463

== ENCOUNTER 2025-04-19 11:25 | Emergency (ER) | payer BC, SELFPAY ==
--- NOTE | ~2025-04-19 | XR_ITS ---
EXAM/ PROCEDURE: XR knee LT min 4V - 04/19/2025 11:45 CDT HISTORY: 59 years old Female with knee pain x 2 week COMPARISON: None available TECHNIQUE: Three view(s) FINDINGS/ IMPRESSION: There are no fractures or dislocations.Joint space narrowing, subchondral sclerosis, subchondral cyst formation and osteophyte formation, compatible with mild osteoarthritis. Reviewed, dictated and finalized at location N.
--- NOTE | 2025-04-19 11:28 | ED.LOWEXIN ---
HPI - Extremity Injury (Lower) General Chief Complaint: Extremity Injury, Lower Stated Complaint: left leg/knee pain Time Seen by Provider: 04/19/25 11:28 Source: patient Mode of arrival: ambulatory Limitations: no limitations History of Present Illness HPI Narrative: Elizabeth is a 59 year old female patient presenting to the clinic today with complaints left knee pain x2 weeks. She reports her pain is a 9/10 currently. Pain with walking. Feels as though her knee is swollen. Feels as though the pain is radiating up the knee into the lateral thigh. No known fall or twisting injury. Has been taking Tylenol for her symptoms. Related Data Home Medications ?Medication ?Instructions ?Recorded ?Confirmed ?Last Taken ?Type escitalopram oxalate 10 mg tablet 10 mg PO DAILY 02/24/20 11/12/24 02/24/20 History buspirone 10 mg tablet 10 mg PO BID 08/27/22 11/12/24 Unknown History levothyroxine 75 mcg tablet mcg 11/12/24 Unknown History gabapentin 100 mg capsule mg 04/19/25 Unknown History Allergies Allergy/AdvReac Type Severity Reaction Status Date / Time No Known Allergies Allergy Verified 04/19/25 11:35 Review of Systems Review of Systems: Pertinent positives per HPI. Patient denies any fever, chills, rash, headache, visual changes, dizziness, cough, runny nose, sore throat, shortness of breath, chest pain, palpitations, nausea, vomiting, diarrhea, constipation, abdominal pain, or any urinary issues. PMFSH Past Medical History Medical History Obese Depression Thyroid disorder Surgical History Surgical History H/O thyroidectomy History of dilatation and curettage H/O partial thyroidectomy Family History Family History Mother Hypertension Father Hypertension Social History Social History Smoking status: Never smoker Alcohol intake: never Substance use: never Living arrangements: with family Gender identity (if verbalized by the patient): Female Sexual Orientation (if Verbalized by the Patient): Straight or Heterosexual Spiritual care concerns: No Comments At the time of my signature, I reviewed and agree with the nursing past medical, surgical, social, and family history. There is no relevant family history pertinent to the patient complaint. Exam Narrative: General: Well-developed, morbidly obese, in no apparent distress Head: Normocephalic, atraumatic. Cardio: Regular rate and rhythm, s1 and s2 normal, no murmur appreciated. Resp: Clear to auscultation bilaterally, no rhonchi, rales, wheezing or rubs. Musculoskeletal: No deformity, crepitus palpable with flexion extension of the left knee, tender to palpation over the anterior knee joint, pain with valgus and varus testing without laxity, anterior and posterior drawer signs negative, grossly normal range of motion, muscle strength strong and equal, peripheral pulse strong, no edema, no cyanosis, normal gait and station Course Course Emergency Course: Portions of this record may have been created with voice recognition software. Level of Care: Express Care Visit Vital Signs Vital signs: Vital Signs Temperature 36.6 C 04/19/25 11:35 Pulse Rate 86 04/19/25 11:35 Respiratory Rate 16 04/19/25 11:35 Blood Pressure 121/79 04/19/25 11:35 Pulse Oximetry 99 04/19/25 11:35 Oxygen Delivery Room Air 04/19/25 11:35 Temperature 36.6 C 04/19/25 11:35 Pulse Rate 86 04/19/25 11:35 Respiratory Rate 16 04/19/25 11:35 Blood Pressure 121/79 04/19/25 11:35 Pulse Oximetry 99 04/19/25 11:35 Oxygen Delivery Room Air 04/19/25 11:35 Vital signs reviewed MDM - Extremity Injury (Lower) MDM Narrative Medical decision making narrative: At the time of visit patient is resting comfortably on the exam table. Patient appears to be nontoxic. Complaints left knee pain x2 weeks. She reports her pain is a 9/10 currently. Pain with walking. Feels as though her knee is swollen. Feels as though the pain is radiating up the knee into the lateral thigh. No known fall or twisting injury. Has been taking Tylenol for her symptoms. On exam patient has crepitus with flexion and extension of the left knee, patient has full flexion extension, pain with valgus and varus testing without laxity, anterior and posterior drawer signs negative. Medications: Toradol 60mg IM given in the clinic today Diagnostics: X-ray of the left knee was performed and shows mild osteoarthritis. No acute fracture or malalignment. Plan: I suspect patient has osteoarthritis of the left knee. Toradol 60 mg IM given in the clinic for pain. Prescription for naproxen was sent to the pharmacy and recommend follow-up with PCP if symptoms persist she may need physical therapy, ortho follow-up, or further testing. Supportive measures were discussed with the patient and they voiced understanding discharge instructions and agrees to treatment plan. Return precautions reviewed Differential Diagnosis Differential diagnosis: Likely acute internal derangement of knee and other (Knee strain, patella fracture, osteoarthritis, tibia fracture, femur fracture) Imaging Data Radiologist's impression: [place] [address] XRay Report Signed Patient: Elizabeth Oates : 1965 MR#: [id number] Age: 59 Acct:[id number] Loc: [facility] ADM Date: 04/19/25Attending Dr: Ordering Physician: Raman Cho APRN Date of Service: 04/19/25 Procedure(s): XR knee LT min 4V Accession Number(s): [id number] cc: Raman Cho APRN; Michelle, Tomasz LOMBARDI~ EXAM/ PROCEDURE: XR knee LT min 4V - 04/19/2025 11:45 CDT HISTORY: 59 years old Female with knee pain x 2 week COMPARISON: None available TECHNIQUE: Three view(s) FINDINGS/ IMPRESSION: There are no fractures or dislocations.Joint space narrowing, subchondral sclerosis, subchondral cyst formation and osteophyte formation, compatible with mild osteoarthritis. Reviewed, dictated and finalized at location N. Please be advised this is a medical document. It is intended for [id number] communication. It is written in medical language and may contain unfamiliar abbreviations or verbiage. Medical documents are intended to carry relevant information, facts as evident, and the clinical opinion of the practitioner at the time of the encounter. This report may have been done utilizing a voice recognition system. Attempts have been made to correct errors. However, there may be uncorrected grammatical, spelling, and recognition errors present. The file time of this note does not necessarily represent the time of service. Dictated By: Tj Matthews MD 04/19/25 1208 Signed By: <Electronically signed by Tj Matthews MD in OV> 04/19/25 1209 Discharge Plan Discharge Clinical Impression: Osteoarthritis of left knee Qualifiers: Osteoarthritis type: unspecified Qualified Code(s): M17.12 - Unilateral primary osteoarthritis, left knee Patient Disposition: Home Condition: Stable Instructions: Antibiotic Form, Osteoarthritis (ED) Additional Instructions: Toradol 60 mg IM given in the clinic today. X-ray shows mild osteoarthritis of the left knee-no sign of fracture or malalignment. Rest, ice, and elevate Take naproxen as prescribed May take Tylenol additionally for pain Gradually bear weight No running or sports until healed. Follow up with your PCP if symptoms persist more than 1 week. Patient Language: Georgian Prescriptions: New naproxen 500 mg tablet 500 mg PO BID PRN (Reason: pain) 7 Days Qty: 14 0RF No Action loratadine [Claritin] 10 mg tablet 10 mg PO DAILY 14 Days Qty: 14 0RF fluticasone propionate [Flonase Allergy Relief] 50 mcg/actuation spray,suspension 2 spray NASAL BID Qty: 9.9 0RF Rx Instructions: administer into each nostril gabapentin 100 mg capsule buspirone 10 mg tablet 10 mg PO BID levothyroxine 75 mcg tablet escitalopram oxalate 10 mg tablet 10 mg PO DAILY Follow-up/Referrals: Michelle,CHEO Dunn [Primary Care Provider] Time of Disposition: 12:13 Quality NIHSS Nursing Documentation ED NIHSS nursing documentation: reviewed/agree
[2025-04-19 11:35] VITALS: BP 121/79; PULSE 86; RESP 16; TEMP 36.6; O2SAT 99
--- OUTSIDE RECORDS SUMMARY | 2025-04-19 11:52 | XMS_ITS | Clinical Summary ---
Author Organization [facility] Address [address] [place] [address] Care Team Providers Care Chairman And Ceo Name Role Phone Tomasz Martinez Primary Care Provider [phone] Allergies No known active allergies Medications ondansetron (ZOFRAN) 4 mg tablet Take 1 tablet (4 mg total) by mouth every 4 (four) hours as needed for nausea or vomiting 15 tablet 0 Active ibuprofen (ADVIL,MOTRIN) 600 mg tabletIndications: Anti-inflammatory, Pain Take 1 tablet (600 mg total) by mouth every 6 (six) hours as needed for pain 30 tablet 1 Active busPIRone (BUSPAR) 5 mg tabletIndications: Generalized Anxiety Disorder Take 1 tablet (5 mg [...] day before meals 90 capsule 3 4 05/18/20 25 Active famotidine (PEPCID) 20 mg tablet Take 2 tablets (40 mg total) by mouth daily 60 tablet 11 4 06/07/20 25 Active bismuth subsalicylate 262 mg tablet,chewable Take [...] by mouth daily 90 tablet 3 5 11/08/19 26 Active Active Problems Problem Noted Date Diagnosed Date [...] on file 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 Gender Identity Not on file Sexual Orientation Not on file Obstetrics History Last Filed Vital Signs Vital Sign Reading Time Taken Comments Blood Pressure 122/74 11/07/2024 2:45 PM CDT Pulse 91 11/07/2024 2:45 PM CDT Temperature 36.8 C (98.3 F) 06/07/2024 9:04 AM PEN AND PENCIL REPAIRER Respiratory Rate 18 06/07/2024 9:04 AM PEN AND PENCIL REPAIRER Oxygen Saturation 96% 06/23/2024 12: 56 PM PEN AND PENCIL REPAIRER Inhaled Oxygen Concentration - - Weight 111.6 kg (246 lb 1.6 oz) 11/07/2024 2:45 PM CDT Height 154.9 cm (5' 1) 11/07/2024 2:45 PM CDT Body Mass Index 46.5 11/07/2024 2:45 PM CDT Plan of Treatment Health Maintenance Due Date Last Done Comments Breast Cancer Screening-Mammogram 1965 Cervical Cancer Screening 1965 Depression Screening 1965 Hepatitis C Screening 1965 DTaP/Tdap/Td Vaccine (1 - Tdap) 1976 Hepatitis B Screening 1983 Regular Well Visit/Exam 18-64 1983 Zoster Vaccine (1 of 2) 2015 Covid-19 Vaccine ( season) 2025 06/30/2022, 07/22/2021, 10/19/2020, Additional history exists Influenza Vaccine (#1) 2025 05/18/2023, 2021 Colon Cancer Screening-Colonoscopy 02/03/2033 02/03/2023, [...] [facility] Patient Name: Elizabeth Oates Procedure [...] under direct vision. The Pediatric Colonoscope PCF-H190L [id number] was introducedthrough the anus and advanced to [...] 10:29 AM Procedure Code(s): --- Professional --- 35799, Colonoscopy, flexible; with biopsy, single or multiple Diagnosis Code(s): --- Professional --- Z80.0, Family history of malignant neoplasm of digestive organs K64.8, Other hemorrhoids CPT copyright 2020 [employer]. All rights reserved. The codes documented in this report are preliminary and upon rehabilitation liaison reviewmay be revised to meet current compliance requirements. Recognized by the [place] [employer] for promoting quality in endoscopy Elisa Abbott MD ENDOSCOPY PROCEDURES Final Result from Last 3 Months or Most Recently Relevant to Health Maintenance [place] [address] [employer] [place] Member Subscriber Plan / Payer ( fective 2022-Present) Name:Elizabeth Oates Relation to Subscriber:Self Name:Elizabeth Oates Payer ID:[id number] (NAIC) Type:[employer] OTHER Address: [place] [id number] [employer] [place] BLUE ACCESS [place] Advance Directives For more information, please contact: [phone] * Full Code (Latest Code Status on [...] 11:16 AM 01/18/2018 3:21 PM Care Teams Chairman And Ceo Relationship Specialty Start Date End Date Tomasz Martinez PA [address] [place] [address] PCP - General 12/15/17
--- OUTSIDE RECORDS SUMMARY | 2025-04-19 11:52 | XMS_ITS | Encounter Summary ---
Author Organization [facility] Address [address] [place] [address] Phone Care Team Providers Care Mitten Sewer Name Role Phone Tomasz Martinez Primary Care Provider [phone] Encounter Details Date Type Department Care Team (Late st Contact Info) Description 04/21/2024 Transcribe Orders [facility] Central Scheduling [address] [place] [address] Piedad Jorge, TANK CAR CLEANER, ROLLING ATTENDANT [address] [place] [address] Social History Tobacco Use Types Packs/Day Years [...] on filedocumented in this encounter Care Teams Mitten Sewer Relationship Specialty Start Date End Date Tomasz Martinez PAC [address] [place] [address] PCP - General Physician Manager Android 06/25/20 documented as of this encounter
--- OUTSIDE RECORDS SUMMARY | 2025-04-19 11:52 | XMS_ITS | Clinical Summary ---
Author Organization [facility] Address [address] [place] [address] Phone Care Team Providers Care Engine Repairer Production Name Role Phone Tomasz Martinez Primary Care Provider [phone] Allergies No known active allergies Medications levothyroxine [...] HCl (Narcan) 4 MG/0.1ML Liquid 1 [place] by Nasal route as needed (opioid overdose). [...] 1:28 PM CDT Height 154.9 cm (5' 1) 04/30/2024 1:28 PM CDT Body Mass Index 45.2 04/30/2024 1:28 PM CDT Plan of Treatment Health Maintenance Due Date Last Done Comments Hepatitis C Virus (HCV) Screening 1965 Mammogram 1965 TdaP Immunization 1965 Hepatitis B Immunization (1 of 3 - 19+ 3-dose series) 1984 Pap Smear 1986 Cervical Cancer Screening (CCS) 1995 HPV/Cotest 1995 Cologuard 2010 Immunochemical Fecal Occult Blood 2010 Pneumococcal Immunization (50+ years) (1 of 1 - PCV) 2015 Zoster Immunization (1 of 2) 2015 Influenza Immunization (#1) 2025 05/18/2023, 1 08/30/2021 SARS-COV-2 Immunization ( season) 2025 06/30/2022, 07/22/2021, 10/19/2020, Additional history exists Colonoscopy 02/03/2033 02/03/2023, 01/18/2018 Colorectal Cancer Screening 02/03/2033 Respiratory Syncytial Virus (RSV) Immunization (Adult) (1 - 1-dose 75+ series) 2040 Human Papillomavirus (HPV) Immunization Aged Out No longer eligible based on patient's age to complete this topic Meningococcal Immunization (ACWY) Aged Out No longer eligible based on patient's age to complete this topic Rotavirus Immunization Aged Out No lo nger eligible based on patient's age to complete this topic Insurance [facility] Care Teams Engine Repairer Production Relationship Specialty Start Date End Date Tomasz Martinez PAC [address] [place] [address] PCP - General Physician Woven Paper Hat Mender 06/25/20
[2025-04-19] MEDS: KETOROLAC (*BKC) 60 MG/2 ML VIAL IM (12:28)
== END 2025-04-19 12:53 | disposition home or self-care (01) ==
PROVIDERS: Emergency Provider Nurse Practitioner Family; PCP Physician Assistant
DX: M17.12 Unilateral primary osteoarthritis, left knee (principal); E66.9 Obesity, unspecified; F32.A Depression, unspecified; E07.9 Disorder of thyroid, unspecified; Z90.89 Acquired absence of other organs
CPT/HCPCS: 73564; 96372; 99213; G0463; J1885

== ENCOUNTER 2025-05-03 06:17 | Emergency (ER) | payer BC, SELFPAY ==
--- NOTE | ~2025-05-03 | CT_ITS ---
EXAMINATION: CT knee LT wo con DATE: 05/03/2025 07:21 INDICATION: Left knee pain. TECHNIQUE: Computed tomography (CT) of the left knee was performed without intravenous contrast. Automated exposure control and iterative reconstruction technique were employed. The dose-length product was 589.01 mGy-cm. COMPARISON: Left knee radiographs 04/19/2025 FINDINGS: Alignment is normal. No fracture. There is mild tricompartmental osteoarthritis. No knee joint effusion. There is semimembranosus-tibial collateral ligament bursitis and pes anserinus bursitis. IMPRESSION: 1. Mild left knee osteoarthritis. 2. Semimembranosus-tibial collateral ligament bursitis and pes anserinus bursitis. Reviewed, dictated and finalized at location E. IMPRESSION: 1. Mild left knee osteoarthritis. 2. Semimembranosus-tibial collateral ligament bursitis and pes anserinus bursit is.
--- OUTSIDE RECORDS SUMMARY | 2025-05-03 06:19 | XMS_ITS | Encounter Summary ---
Author Organization [facility] Address [address] [place] [address] Phone Care Team Providers Care Manager Delivery Name Role Phone Tomasz Martinez Primary Care Provider [phone] Encounter Details Date Type Department Care Team (Late st Contact Info) Description 04/21/2024 Transcribe Orders [facility] Central Scheduling [address] [place] [address] Piedad Jorge, CASING SOAKER, PUMPING STATION SUPERVISOR [address] [place] [place] [address] Social History Tobacco Use Types Packs/Day Years [...] filedocumented in this encounter Care Teams Manager Delivery Relationship Specialty Start Date End Date Tomasz Martinez PAC [address] [place] [address] PCP - General Physician Baby Formula Worker 06/25/20 documented as of this encounter
--- OUTSIDE RECORDS SUMMARY | 2025-05-03 06:19 | XMS_ITS | Clinical Summary ---
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 Gender Identity Not on file Sexual Orientation Not on file Obstetrics History Last Filed Vital Signs Vital Sign Reading Time Taken Comments Blood Pressure 122/74 11/07/2024 2:45 PM CDT Pulse 91 11/07/2024 2:45 PM CDT Temperature 36.8 C (98.3 F) 06/07/2024 9:04 AM AUTOMOTIVE TIRE TECHNICIAN Respiratory Rate 18 06/07/2024 9:04 AM AUTOMOTIVE TIRE TECHNICIAN Oxygen Saturation 96% 06/23/2024 12: 56 PM AUTOMOTIVE TIRE TECHNICIAN Inhaled Oxygen Concentration - - Weight 111.6 [...] Abbott MD - 02/03/2023 10:29 AM CDT [facility] Patient Name: Elizabeth Oates Procedure Date: 02/03/2023 10:29 AM Date of : 1965 Admit Type: Outpatient Age: 57 Gender: Female Attending MD: Elisa Abbott M.D. Room: [facility] ROOM 1 Note Status: Finalized [...] under direct vision. The Pediatric Colonoscope PCF-H190L [id number] was introducedthrough the anus and advanced to [...] 10:29 AM Procedure Code(s): --- Professional --- 58350, Colonoscopy, flexible; with biopsy, single or multiple Diagnosis Code(s): --- Professional --- Z80.0, Family history of malignant neoplasm of digestive organs K64.8, Other hemorrhoids CPT copyright 2020 [employer]. All rights reserved. The codes documented in this report are preliminary and upon surgical coder reviewmay be revised to meet current compliance requirements. Recognized by the [place] [employer] for promoting quality in endoscopy Elisa Abbott MD ENDOSCOPY PROCEDURES Final Result from Last 3 Months or Most Recently Relevant to Health Maintenance [place] [address] [employer] [place] Member Subscriber Plan / Payer ( fective 2022-Present) Name:Elizabeth Oates Relation to Subscriber:Self Name:Elizabeth Oates Payer ID:[id number] (NAIC) Type:[employer] OTHER Address: [place] [id number] [employer] [place] BLUE ACCESS [place] Advance Directives For more information, please contact: [phone] * Full Code (Latest Code Status on [...] 11:16 AM 01/18/2018 3:21 PM Care Teams Pointing Machine Operator Relationship Specialty Start Date End Date Tomasz Martinez PA [address] [place] [address] PCP - General 12/15/17
[2025-05-03 06:20] VITALS: BP 145/89; PULSE 78; RESP 16; TEMP 36.4; O2SAT 99
[2025-05-03 06:27] VITALS: BP 145/89; PULSE 80; RESP 17; O2SAT 98
--- NOTE | 2025-05-03 07:20 | ED.EXTPRO ---
HPI - Extremity Problem General Chief complaint: Extremity Problem,Nontraumatic Stated complaint: L knee pain Time Seen by Provider: 05/03/25 06:56 History of Present Illness HPI Narrative: 59-year-old female presents to the emergency department for evaluation for worsening left knee pain. Patient did have follow-up with urgent care a few days ago had x-ray showing arthritis and joint narrowing. Patient states that she still having persistent symptoms. Patient states he does have frequent stumbles and falls. Patient denies striking head denies loss consciousness. Patient denies any history of surgery on the left knee. Patient is well-appearing at time of evaluation. Related Data Home Medications ?Medication ?Instructions ?Recorded ?Confirmed ?Last Taken ?Type escitalopram oxalate 10 mg tablet 10 mg PO DAILY 02/24/20 11/12/24 02/24/20 History buspirone 10 mg tablet 10 mg PO BID 08/27/22 11/12/24 Unknown History levothyroxine 75 mcg tablet mcg 11/12/24 Unknown History gabapentin 100 mg capsule mg 04/19/25 Unknown History Allergies Allergy/AdvReac Type Severity Reaction Status Date / Time No Known Allergies Allergy Verified 04/19/25 11:35 Review of Systems Review of Systems: All systems reviewed & are unremarkable except as noted in HPI and below PMFSH Past Medical History Medical History Obese Depression Thyroid disorder Surgical History Surgical History H/O thyroidectomy History of dilatation and curettage H/O partial thyroidectomy Family History Family History Mother Hypertension Father Hypertension Social History Social History Smoking status: Never smoker Alcohol intake: never Substance use: never Living arrangements: with family Gender identity (if verbalized by the patient): Female Sexual Orientation (if Verbalized by the Patient): Straight or Heterosexual Spiritual care concerns: No Exam Narrative: APPEARANCE: Well appearing, no pain, no distress, well-nourished. HEAD: normocephalic, atraumatic. EYES: PERRLA/EOMI, conjunctivae clear. NOSE: Normal no drainage RESPIRATORY: Airway patent, respirations nonlabored. Clear to auscultation bilaterally, no rales, rhonchi, wheezing. CARDIOVASCULAR: Regular rate and rhythm without murmurs rubs or gallops. ABDOMINAL: Soft, nontender, nondistended, normal bowel sounds MUSCULOSKELETAL: Left knee tenderness to palpation, no effusion, no deformity, neurovascularly intact. NEURO: Alert. Cranial nerves II through XII intact. Good gait. Good coordination SKIN: Warm, dry. Normal Color Course Vital Signs Vital signs: Vital Signs Temperature 97.6 F 05/03/25 06:20 Pulse Rate 78 05/03/25 06:20 Respiratory Rate 16 05/03/25 06:20 Blood Pressure 145/89 H 05/03/25 06:20 Pulse Oximetry 99 05/03/25 06:20 Temperature 97.8 F 05/03/25 08:41 Pulse Rate 74 05/03/25 08:41 Respiratory Rate 18 05/03/25 08:41 Blood Pressure 130/81 05/03/25 08:41 Pulse Oximetry 98 05/03/25 08:41 MDM - Extremity (Nontraumatic) MDM Narrative Medical decision making narrative: 59-year-old female presents to the emergency department for evaluation for left knee pain. Patient had recent x-rays that were negative for fracture. CT was ordered for acute fracture. CT does show a left knee osteoarthritis and a semimembranous tibial collateral ligament bursitis and pes anserinus bursitis. Patient was provided a knee immobilizer for comfort. Patient was comfortable with the plan for discharge and close follow-up. Patient was provided follow-up with Orthopedics. Differential Diagnosis Differential diagnosis: Likely other (Tibia plateau fracture, osteoarthritis, internal derangement of the left knee, contusion) Discharge Plan Discharge Clinical Impression: Osteoarthritis Patient Disposition: Home Condition: Stable Instructions: Antibiotic Form, Osteoarthritis (DC), Knee Immobilizer (ED) Additional Instructions: Tylenol and naproxen for pain control. Knee immobilizer for comfort. Limited weight-bearing using a walker. Have close follow-up with Orthopedics. If you have any worsening symptoms and please call or return to the emergency department. Patient Language: Divehi Prescriptions: New naproxen 500 mg tablet 500 mg PO BID 5 Days Qty: 10 0RF No Action loratadine [Claritin] 10 mg tablet 10 mg PO DAILY 14 Days Qty: 14 0RF fluticasone propionate [Flonase Allergy Relief] 50 mcg/actuation spray,suspension 2 spray NASAL BID Qty: 9.9 0RF Rx Instructions: administer into each nostril gabapentin 100 mg capsule naproxen 500 mg tablet 500 mg PO BID PRN (Reason: pain) 7 Days Qty: 14 0RF buspirone 10 mg tablet 10 mg PO BID levothyroxine 75 mcg tablet escitalopram oxalate 10 mg tablet 10 mg PO DAILY Follow-up/Referrals: Michelle,CHEO Dunn [Primary Care Provider] Stand Alone Forms: Work/School Release IP
--- OUTSIDE RECORDS SUMMARY | 2025-05-03 07:24 | XMS_ITS | Clinical Summary ---
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 Patient Name: Elizabeth Oates Procedure Date: 02/03/2023 10:29 AM Date of : 1965 Admit Type: Outpatient Age: 57 Gender: Female Attending MD: Elisa Abbott M.D. Room: [facility] ENDOSCOPY ROOM 1 Note Status: [...] under direct vision. The Pediatric Colonoscope PCF-H190L [id number] was introducedthrough the anus and advanced to [...] 10:29 AM Procedure Code(s): --- Professional --- 61625, Colonoscopy, flexible; with biopsy, single or multiple Diagnosis Code(s): --- Professional --- Z80.0, Family history of malignant neoplasm of digestive organs K64.8, Other hemorrhoids CPT copyright 2020 [place] [employer]. All rights reserved. The codes documented in this report are preliminary and upon aircraft inspection record clerk reviewmay be revised to meet current compliance requirements. Recognized by the [place] [employer] for promoting quality in endoscopy Elisa Abbott MD ENDOSCOPY PROCEDURES Final Result from Last 3 Months or Most Recently Relevant to Health Maintenance [place] [address] [employer] Member Subscriber Plan / Payer ( fective 2022-Present) Name:Elizabeth Oates Relation to Subscriber:Self Name:Elizabeth Oates Payer ID:[id number] (NAIC) Type:Svpply OTHER Address: [place] [id number] [employer] BLUE ACCESS [place] Advance Directives For more information, please contact: [phone] * Full Code (Latest Code Status on [...] 11:16 AM 01/18/2018 3:21 PM Care Teams Floor Framer Relationship Specialty Start Date End Date Tomasz Martinez PA [address] [place] [address] PCP - General 12/15/17
--- OUTSIDE RECORDS SUMMARY | 2025-05-03 07:24 | XMS_ITS | Encounter Summary ---
Author Organization [facility] Address [address] [place] [address] Phone Care Team Providers Care Resource Paraprofessional Name Role Phone Tomasz Martinez Primary Care Provider [phone] Encounter Details Date Type Department Care Team (Late st Contact Info) Description 04/21/2024 Transcribe Orders [facility] Central Scheduling [address] [place] [address] Piedad Jorge, FOREIGN LEGAL CONSULTANT, INSURANCE CLAIMS SUPERVISOR [address] [place] [address] Social History Tobacco Use Types Packs/Day Years [...] on filedocumented in this encounter Care Teams Resource Paraprofessional Relationship Specialty Start Date End Date Tomasz Martinez PAC [address] [place] [id number] PCP - General Physician Printmaker 06/25/20 documented as of this encounter
[2025-05-03 08:41] VITALS: BP 130/81; PULSE 74; RESP 18; TEMP 36.6; O2SAT 98
== END 2025-05-03 08:42 | disposition home or self-care (01) ==
PROVIDERS: Emergency Provider Emergency Medicine; PCP Physician Assistant
DX: M17.12 Unilateral primary osteoarthritis, left knee (principal); M76.42 Tibial collateral bursitis [Pellegrini-Stieda], left leg; M70.52 Other bursitis of knee, left knee; E89.0 Postprocedural hypothyroidism; F32.A Depression, unspecified; E66.9 Obesity, unspecified; Z68.42 Body mass index [BMI] 45.0-49.9, adult; Z79.899 Other long term (current) drug therapy
CPT/HCPCS: 73700; 99284

== ENCOUNTER 2025-07-11 09:00 | Emergency (ER) | payer BC, SELFPAY ==
[2025-07-11 09:05] VITALS: BP 127/79; PULSE 87; RESP 18; TEMP 36.6; O2SAT 99
--- NOTE | 2025-07-11 09:24 | ED.SKABFB ---
HPI - Skin/Abscess/Foreign Bdy General Chief complaint: Skin/Abscess/Foreign Body Stated complaint: Skin Sore/Right Arm Time Seen by Provider: 07/11/25 09:24 Source: patient, RN notes reviewed and old records reviewed Mode of arrival: ambulatory Limitations: no limitations History of Present Illness HPI narrative: 59 year old female presents to [facility] with complaints of red raised painful lesion to her right forearm states that she has had abscess before and wants it drained. Patient reports that it started out as a red dot and now it has grown in size and is painful and burning. Patient reports that she has applied warm soaks PRID salve, taken Tylenol and Ibuprofen. Patient has firm indurated lesion 1.5cm X1.5cm lesion to anterior right forearm with center firm area measuring 0.5cm, diameter no fluctuation of tissue noted. Patient does have surrounding redness of lesion total 6cm diameter. Patient reports no drainage from lesion and denies any fevers. MD complaint: abscess/boil Onset (ago): day(s) (2) Location: RUE (anterior right forearm distally) Severity scale (1-10): 10 Pain Consistency: constant Treatments prior to arrival: OTC topical medication (PRID warm soaks, Tyenol and Ibuporfen) Related Data Home Medications ?Medication ?Instructions ?Recorded ?Confirmed ?Last Taken ?Type buspirone 10 mg tablet 10 mg PO BID 08/27/22 11/12/24 Unknown History levothyroxine 88 mcg tablet mcg 07/11/25 Unknown History Allergies Allergy/AdvReac Type Severity Reaction Status Date / Time No Known Allergies Allergy Verified 07/11/25 09:18 Review of Systems Review of Systems: CONSTITUTIONAL: Denies fever, chills, or sweats. CARDIOVASCULAR: Denies chest pain, palpitations, or edema. RESPIRATORY: Denies cough or dyspnea. GASTROINTESTINAL: Denies abdominal pain, nausea, vomiting SKIN: Reports redness and swelling to lesion area on her right forearm for the past 2 days. Denies purulent drainage,no vesicles, no fluctuation of tissue noted, with some surrounding redness MUSCULOSKELETAL: Denies myalgia. NEUROLOGIC: Denies headache, numbness All systems reviewed & are unremarkable except as noted in HPI and below PMFSH Past Medical History Medical History Obese Depression Thyroid disorder Surgical History Surgical History H/O thyroidectomy History of dilatation and curettage H/O partial thyroidectomy Family History Family History Mother Hypertension Father Hypertension Social History Social History Smoking status: Never smoker Alcohol intake: never Substance use: never Living arrangements: with family Gender identity (if verbalized by the patient): Female Sexual Orientation (if Verbalized by the Patient): Straight or Heterosexual Spiritual care concerns: No Comments At time of signature, agree with nursing past medical, surgical, social and family history. There is no relevant family history pertinent to the presenting complaint Exam Narrative: GENERAL: Well-appearing, well-nourished, and in no acute distress. HEAD: Normocephalic, atraumatic. EYES: PERRLA and EOMI. ENT: Nares clear, no rhinorrhea or epistaxis. Mucous membranes moist. NECK: Supple.no lymphadenopathy CHEST: Clear to auscultation. No respiratory distress.SAO2 99% on room air HEART: Regular rate and rhythm. No murmur heard. Normal peripheral pulses. ABDOMEN: Soft, nontender, nondistended, normal active bowel sounds. EXTREMITIES: Normal range of motion. No edema. SKIN: Warm, dry. Erythema, induration, tenderness, warmth with lesion 1.5cm X1,5cm with central area firm 0.5cm diameter with surrounding redness 6cm with some streaking up arm, no acute warm no vesicles or ecchymosis noted no fluctuation of tissue noted at this time, is painful to palpation. NEURO: No focal deficits. Alert and oriented x3. Course Course Level of Care: Express Care Visit Vital Signs Vital signs: Vital Signs Temperature 36.6 C 07/11/25 09:05 Pulse Rate 87 07/11/25 09:05 Respiratory Rate 18 07/11/25 09:05 Blood Pressure 127/79 07/11/25 09:05 Pulse Oximetry 99 07/11/25 09:05 Oxygen Delivery Room Air 07/11/25 09:05 Temperature 36.6 C 07/11/25 09:05 Pulse Rate 87 07/11/25 09:05 Respiratory Rate 18 07/11/25 09:05 Blood Pressure 127/79 07/11/25 09:05 Pulse Oximetry 99 07/11/25 09:05 Oxygen Delivery Room Air 07/11/25 09:05 reviewed MDM MDM Narrative Medical decision making narrative: 59-year-old female who presents to [facility] with complaints of inflamed hardened lesion to the right forearm for the past 2 days. Patient reports she has applied warm packs and has applied Prid salve. patient reports she wants the lesion opened up and drained with no fluctuation of tissue noted. lesion has surrounding redness with some streaking up right arm. patient will be put on antibiotics of Keflex and Bactrim and ordered mupirocin ointment to apply to wound twice daily after cleansing with liquid Dial soap and rinsing. Patient is nontoxic appropriate for outpatient care,Anticipatory guidance and reasons to seek care in the ED reviewed with patient verbalizing understanding. Differential Diagnosis Differential Diagnosis: Differential diagnostic considerations for skin/abscess/foreign body issues include abscess of skin or subcutaneous tissue, viral exanthem, dermatophytosis, urticaria, herpes zoster, allergic reaction to drug, cellulitis, eczema, insect bites, impetigo, contact dermatitis, vasculitis. Critical Care Time Critical Care Time Critical Care Time: No Discharge Plan Discharge Clinical Impression: Abscess of right forearm Patient Disposition: Home Condition: Stable Instructions: Antibiotic Form, Abscess (ED) Additional Instructions: Cleanse wound area with liquid Dial soap twice daily rinse apply mupirocin ointment and dressing of choice watch for any increasing infection--redness, swelling, drainage Tylenol or ibuprofen per package directions for any fever pain follow up with PCP in 7-10 days for a wound check recheck if develop fever, chills, increasing symptom Go to the ER if your symptoms become worse of if ANY new symptoms develop antibiotics as prescribed complete all doses If your symptoms persist, change or worsen significantly before you can contact your personal physician then please, without delay, go to the emergency department for further evaluation. Follow-up with PCP in 7-10 days or sooner if needed Follow up with PCP soon in regards to your blood pressure which is elevated above threshold for referral. Blood pressure above 120/80 may indicate pre-hypertension. minimal systolic elevation 127/79 do not squeeze or pick on lesion Patient Language: Uzbek Prescriptions: New cephalexin 500 mg capsule 500 mg PO Q8H Qty: 28 0RF Rx Instructions: take all doses sulfamethoxazole-trimethoprim [Bactrim DS] 800-160 mg tablet 1 tablet PO Q12H Qty: 14 0RF Rx Instructions: take all doses mupirocin [Centany] 2 % ointment 1 applic topical BID Qty: 22 0RF Rx Instructions: cleanse wound area twice daily with liquid dial soap rinse and apply this ointment to lesion No Action fluticasone propionate [Flonase Allergy Relief] 50 mcg/actuation spray,suspension 2 spray NASAL BID Qty: 9.9 0RF Rx Instructions: administer into each nostril buspirone 10 mg tablet 10 mg PO BID levothyroxine 88 mcg tablet Follow-up/Referrals: Michelle,CHEO Dunn [Primary Care Provider] Time of Disposition: 09:35 Quality Jyotsna Coma Scale Eyes: Open Verbal: Oriented and Alert Motor: Follows Commands Jyotsna Coma Total Score: 15
== END 2025-07-11 09:40 | disposition home or self-care (01) ==
PROVIDERS: Emergency Provider Registered Nurse; PCP Physician Assistant
DX: L02.413 Cutaneous abscess of right upper limb (principal); F32.9 Major depressive disorder, single episode, unspecified; E07.9 Disorder of thyroid, unspecified; E66.9 Obesity, unspecified; Z68.41 Body mass index [BMI] 40.0-44.9, adult
CPT/HCPCS: 99213; G0463